=== PATIENT | female | born 1950 | race Caucasian/White ===

== ENCOUNTER 2019-07-16 19:28 | Emergency (ER) | payer MEDICARE, SELFPAY ==
[2019-07-16 19:44] VITALS: BP 197/115; PULSE 119; RESP 18; TEMP 36.4; O2SAT 93; BMI 22.1
--- NOTE | 2019-07-16 19:46 | W.ED.EXTPRO ---
HPI - Extremity Problem General: Chief complaint: Extremity Problem,Nontraumatic Stated complaint: right leg pain Time Seen by Provider: 07/16/19 19:44 Source: patient Mode of arrival: ambulatory Limitations: no limitations History of Present Illness: HPI Narrative: Patient comes in today for complaints of swelling and redness to the right lower extremity for the last 3 days. Patient reports some pain when walking on the extremity but otherwise is pain-free. Patient recently had a change in medication from a thiazide diuretic to furosemide. Patient reports increased swelling since this and does not know if it is related to the medication change or she might have a blood clot. Patient appears well. Patient denies any pain at rest. Patient appears in no acute distress. Patient has chronic shortness of breath due to COPD. Review of Systems General: Reports: 10 or more systems reviewed and unremarkable except in HPI and below Musc: Reports: extremity swelling [facility] ED PFSH: Medical History (Updated 07/16/19 @ 21:00 by ELISABETH Bowers) Asthma COPD (chronic obstructive pulmonary disease) Essential (primary) hypertension Social History Smoking and tobacco status: light tobacco smoker cigarettes Packs smoked per day: 1 Years cigarettes smoked: 50 Quit status (tobacco): considering quitting Smoking risk assessment/counseling performed?: Yes Alcohol intake: never Lives independently: Yes Household members: none Current occupational status: retired History of recent travel: No Current gender identity: Female Physical Exam Const: COMMON NORMALS: no apparent distress and oriented x3 GENERAL APPEARANCE: cooperative HENMT: COMMON NORMALS: normocephalic, TM's normal bilaterally and external nose normal HEAD & SCALP: normal to inspection and normocephalic NOSE: external nose normal TYMPANIC MEMBRANE: TM's normal bilaterally MOUTH: oral and palatal mucosa normal THROAT: posterior oropharynx normal Eye: GENERAL EYE: normal appearance of both eyes Neck/C-Spine: COMMON NORMALS: full ROM Lymph: LYMPHATIC: no lymphadenopathy noted Chest: COMMONS NORMALS: inspection of chest normal Resp: COMMON NORMALS: normal respiratory effort EFFORT & INSPECTION: Yes able to speak in complete sentences Cardio: COMMON NORMALS: regular rate and regular rhythm RATE: regular rate RHYTHM: regular rhythm GI: COMMON NORMALS: non-tender : COMMON NORMALS: Yes no CVA tenderness BLADDER/KIDNEY EXAM: Yes no CVA tenderness Back/Pelvis: COMMON NORMALS: no CVA tenderness and thoracic and lumbar spine normal to inspection Extremity: COMMON NORMALS: normal to inspection GENERAL: Yes edema (right lower leg, multiple varicose veins) Neuro: COMMON NORMALS: oriented x3 and moves all extremities Psych: COMMON NORMALS: mental status grossly normal and cooperative Skin: COMMON NORMALS: no rashes or lesions noted GENERAL SKIN EXAM: no rashes or lesions noted Course Vital Signs: Vital signs: Vital Signs Temperature 97.6 F 07/16/19 19:44 Pulse Rate 115 H 07/16/19 20:51 Respiratory Rate 20 H 07/16/19 20:51 Blood Pressure 204/106 07/16/19 20:51 Pulse Oximetry 92 07/16/19 20:51 MDM - Extremity (Nontraumatic) MDM Narrative: Medical decision making narrative: Patient comes in for evaluation of swelling and redness to the right lower leg. Patient is concerned for a blood clot. Patient appears well. Patient appears no acute distress. Exam of the leg notes some significant varicosities, increased edema to the lower extremity and calf tenderness on palpation. Pulses are intact. Normal range of motion of extremity is normal. Vital signs are normal except for some elevation in blood pressure. Patient denies chest pain or headache. Differential diagnosis includes cellulitis, DVT, inflamed varicosities. Laboratory values were normal or insignificant. Patient did have some mild elevation in blood sugar at 159. Venous Doppler ultrasound of the right lower extremity noted a popliteal DVT. Reviewed exam with patient recommended treatment with apixaban 10 mg twice a day for 7 days and then 5 mg twice a day. Reviewed recommendations with patient who agreed to plan with needed follow-up. Lab Data: Labs: Lab Results 07/16/19 07/16/19 07/16/19 Range/Units 20:17 20:17 20:17 WBC 8.1 (4.0-10.0) 10^3/ uL RBC 5.01 (4.1-5.3) 10^6/u L Hgb 15.2 (11.5-15.3) g/dL Hct 46.6 (37.0-47.0) % MCV 93.0 (81-99) fL MCH 30.3 (28.0-34.0) pg MCHC 32.6 (30.0-36.0) g/dL RDW 13.0 (12.1-15.1) % Plt Count 171 (130-400) 10^3/c mm MPV 10.1 (7.4-10.4) fL Neut % (Auto) 83.5 % Lymph % (Auto) 7.3 % Wake % (Auto) 7.7 % Eos % (Auto) 0.6 % Baso % (Auto) 0.5 % Neut # (Auto) 6.8 (1.8-7.7) 10^3/u L Lymph # (Auto) 0.6 L (0.8-4.8) 10^3/u L Wake # (Auto) 0.6 (0.2-0.9) 10^3/u L Eos # (Auto) 0.1 (0.0-0.8) 10^3/u L Baso # (Auto) 0.0 (0.0-0.1) 10^3/u L Nucleated RBC % (a uto) 0 % Nucleated RBCs # 0.0 /100WBC PT 13.00 (10.5-13.3) SECO NDS INR 0.95 (0.8-1.2) APTT 28.2 (23.9-36.7) SECO NDS Sodium 137 (136-145) mmol/L Potassium 4.1 (3.5-5.1) mmol/L Chloride 99 (98-107) mmol/L Carbon Dioxide 27 (22-29) mmol/L Anion Gap 15.1 (5-19) BUN 9 (8-23) mg/dL Creatinine 0.6 (0.5-0.9) mg/dL GFR Calculation 99.4 (90-130) mL/min Glucose 159 H (65-115) mg/dL Calculated Osmolal ity 283 L (285-295) mOsm/k g Calcium 10.0 (8.5-10.5) mg/dL Total Bilirubin 0.5 (0.15-1.2) mg/dL AST 27 (0-32) U/L ALT 32 (0-33) U/L Alkaline Phosphata se 85 (35-105) IU/L Total Protein 7.5 (6.6-8.7) g/dL Albumin 4.1 (3.5-5.2) g/dL Globulin 3.4 (1.3-4.6) g/dL Discharge Plan Discharge Patient Disposition: Home, Self-Care Clinical Impression: Deep vein thrombosis of lower extremity Qualifiers: Affected thrombotic vein of extremity: popliteal Chronicity: acute Laterality: right Qualified Code(s): I82.431 - Acute embolism and thrombosis of right popliteal vein Condition: Stable Prescriptions: New apixaban 5 mg (74 tabs) tablets,dose pack See Rx Instructions .ROUTE .COMPLEX Qty: 74 RF: 0 No Action diltiazem HCl 60 mg capsule,extended release 12 hr 60 mg PO DAILY RF: 0 diltiazem HCl 60 mg capsule,extended release 12 hr 120 mg PO DAILY RF: 0 aspirin [Adult Aspirin Regimen] 81 mg tablet,delayed release (DR/EC) 81 mg PO DAILY RF: 0 Breo Ellipta 200-25 mcg/dose blister with device 1 inh INHALATION DAILY RF: 0 albuterol sulfate [ProAir HFA] 90 mcg/actuation HFA aerosol inhaler 2 puff INHALATION Q6H PRNRF: 0 fluticasone propionate [Flonase Allergy Relief] 50 mcg/actuation spray,suspension 1 spray INTRANASAL Q12H 60 Days Qty: 18.2 RF: 3 Spiriva Respimat 1.25 mcg/actuation mist 2 puff INHALATION DAILY Qty: 4 RF: 3 prednisone 5 mg tablet 5 mg PO BID Qty: 60 RF: 0 Discharge Orders: Discharge Order (Routine); Ordered 07/16/19 Ordered By: Hector Howard Referrals: Thompson Zuluaga MD [Primary Care Provider] - Discharge Diet: Usual diet Discharge Activity: Increase activity as tolerated Patient Instructions: Deep Venous Thrombosis (ED) Activity Restrictions/Additional Instructions: Home and rest Activity as tolerated Return to ED for chest pain or difficulty breathing Take medication as directed Follow-up with primary care in one week for recheck You will need to be on medication for at least three months, continuation of the medication will be decided by your physician and yourself Coding Level of Care Code 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
--- NOTE | 2019-07-16 19:51 | USCV_ITS ---
Lisset Murphy Age: 69 Gender: F : 1950 Exam Date: 07/16/2019 20:24 Ordering Phys: Hector Howard Technologist: Anastacio Gonsalez [place] [facility] [place]ication: RT LEG PAIN AND SWELLING HISTORY: Lower extremity edema. PROCEDURES: Venous duplex imaging was performed in only the right lower extremity. The following venous structures were evaluated: common femoral vein, profunda vein, proximal portion of the greater saphenous vein, superficial femoral vein, and the popliteal vein. In addition, the posterior tibial and peroneal trunk were evaluated. FINDINGS: Evidence of subacute occlusive deep vein thrombosis in the right popliteal, peroneal and posterior tibial vein with abnormal flow dynamics. Partial contraction of the thrombus suggest subacute stage. There is subcutaneous right lower extremity edema noted. CONCLUSIONS Subacute right lower extremity DVT. Dr. Sabrina Mcgee DO (Electronically Signed) Final Date: 17 July 2019 11:38 S
[2019-07-16 20:10] VITALS: BP 197/106; PULSE 108; RESP 18; O2SAT 92
[2019-07-16 20:29] LABS: Basophils % 0.5 %; Eosinophils # 0.1 10^3/uL (0.0-0.8); Eosinophils % 0.6 %; Hematocrit 46.6 % (37.0-47.0); Hemoglobin 15.2 g/dL (11.5-15.3); Lymphocytes # 0.6 10^3/uL (0.8-4.8); Lymphocytes % 7.3 %; Mean Corpuscular HGB Conc 32.6 g/dL (30.0-36.0); Mean Corpuscular Hemoglobin 30.3 pg (28.0-34.0); Mean Platelet Volume 10.1 fL (7.4-10.4); Monocytes # 0.6 10^3/uL (0.2-0.9); Monocytes % 7.7 %; Neutrophils # 6.8 10^3/uL (1.8-7.7); Neutrophils % 83.5 %; Nucleated Red Blood Cells % 0 %; Platelet Count 171 10^3/cmm (130-400); Red Blood Count 5.01 10^6/uL (4.1-5.3); White Blood Count 8.1 10^3/uL (4.0-10.0)
[2019-07-16 20:41] LABS: INR 0.95 (0.8-1.2)
[2019-07-16 20:42] LABS: Partial Thromboplastin Time 28.2 SECONDS (23.9-36.7)
[2019-07-16 20:48] LABS: Alanine Aminotransferase 32 U/L (0-33); Albumin Level 4.1 g/dL (3.5-5.2); Alkaline Phosphatase 85 IU/L (35-105); Anion Gap 15.1 (5-19); Aspartate Amino Transferase 27 U/L (0-32); Blood Urea Nitrogen 9 mg/dL (8-23); Carbon Dioxide 27 mmol/L (22-29); Chloride 99 mmol/L (98-107); Creatinine Clr Calc Pharmacy 71.1191; Globulin 3.4 g/dL (1.3-4.6); Glomerular Filtration Rate 99.4 mL/min (90-130); Glucose 159 mg/dL (65-115); Osmolality Calculated 283 mOsm/kg (285-295); Potassium 4.1 mmol/L (3.5-5.1); Sodium 137 mmol/L (136-145); Total Bilirubin 0.5 mg/dL (0.15-1.2); Total Protein 7.5 g/dL (6.6-8.7)
[2019-07-16 20:51] VITALS: BP 204/106; PULSE 115; RESP 20; O2SAT 92
[2019-07-16] MEDS: apixaban 5 mg Tablet 10 MG PO (21:24)
[2019-07-16 21:25] VITALS: BP 173/117; PULSE 117; RESP 18; O2SAT 92
== END 2019-07-16 21:25 | disposition home or self-care (01) ==
PROVIDERS: Emergency Provider Nurse Practitioner Family; Family Provider Family Medicine; PCP Family Medicine
DX: I82.431 Acute embolism and thrombosis of right popliteal vein (principal); J44.9 Chronic obstructive pulmonary disease, unspecified; I10 Essential (primary) hypertension; F17.210 Nicotine dependence, cigarettes, uncomplicated; Z79.82 Long term (current) use of aspirin
CPT/HCPCS: 12345; 36415; 80053; 85025; 85610; 85730; 93971; 99282; 99283

== ENCOUNTER 2019-07-19 07:39 | Outpatient (CLI) | payer MEDICARE, SELFPAY ==
--- NOTE | 2019-07-19 07:44 | US_ITS ---
WS: [id number] RIGHT UPPER QUADRANT ULTRASOUND HISTORY: EPIGASTRIC PAIN COMPARISON: None available. Liver: 15.1 cm in length. Normal size and echogenicity with no intrahepatic dilatation. No mass. Gallbladder: Normally distended gallbladder with no stones or wall thickening. CBD: 0.3 cm Pancreas: Normal size and echogenicity. Right kidney: 11.0 cm in length. Normal echogenicity with no mass or hydronephrosis. Aorta and IVC: Unremarkable. No ascites. US/US gall bladder [id number] IMPRESSION: Normal RIGHT upper quadrant ultrasound.
== END 2019-07-19 07:40 | disposition home or self-care (01) ==
LOC: RAD 07:42
PROVIDERS: Family Provider Family Medicine; PCP Family Medicine; Visit Provider Family Medicine
DX: R10.13 Epigastric pain (principal)
CPT/HCPCS: 76705

== ENCOUNTER 2019-08-14 08:18 | Outpatient (CLI) | payer MEDICARE, SELFPAY ==
--- NOTE | 2019-08-14 08:30 | CT_ITS ---
WS: [id number] CT CHEST TECHNIQUE: Noncontrast CT of the chest with coronal and sagittal reformatted images. CLINICAL INFORMATION: pulmonary nodule COMPARISON: CTA chest January 25, 2019 DLP: 709.[address] scans at [facility] use at least one of these dose optimization techniques: automat ed exposure control; mA and/or kV adjustment per patient size (includes targeted exams where dose is matched to clinical indication); or iterative reconstruction. FINDINGS: Moderate chronic emphysematous changes. No acute pulmonary infiltrates. No focal pneumonia. No consol idation or pleural fluid. Bulla right upper lobe anteriorly measuring 1.9 x 1.2 CM. Pulmonary nodule right upper lobe posteriorly increased in size from previous today measuring 8.5 mm. Suggestion of a few calcifications in the nodule. Additional hazy groundglass opacities in the left upper lobe measuring 6 mm and 7 mm also slightly in creased in size from previous. Hazy groundglass infiltrate in right upper lobe anteriorly adjacent to the previously described bulla. This is similar in appearance to previous. New small groundglass nod ule in the right lower lobe posteriorly measuring 4 mm. Bibasilar atelectasis. Dense aortic calcification. Coronary calcification. No mediastinal or hilar lymphadenopathy. Calcifie d paratracheal lymph nodes. Small esophageal hiatal hernia. Adrenal glands are normal. CT/CT chest wo con [id number] IMPRESSION: 1. Moderate chronic emphysematous changes. Stable bulla right upper lobe anter iorly measuring 11.7 x 19 mm. Stable surrounding groundglass infiltrate about t he bulla. 2. Again seen are multiple pulmonary nodules the largest in the right upper lo be posteriorly measuring 8.4 mm has increased in size although this demonstrate s a few tiny calcifications. RECOMMEND 6 MONTH FOLLOW-UP. 3. Hazy groundglass opacities in the left upper lobe measuring 6 and 7 mm resp ectively have also increased in size slightly. 4. New groundglass nodule right lower lobe measuring 4 mm appears new from pre vious. 5. Additional stable subcentimeter pulmonary nodules. 6. Bibasilar atelectasis. 7. No mediastinal or hilar lymphadenopathy. 8. Advanced calcified atheromatous disease aortic arch with moderate luminal s tenosis appears unchanged 9. Coronary calcification.
== END 2019-08-14 08:19 | disposition home or self-care (01) ==
LOC: RADWPI 08:27
PROVIDERS: Family Provider Family Medicine; PCP Family Medicine; Visit Provider Internal Medicine Critical Care Medicine
DX: R91.1 Solitary pulmonary nodule (principal); J43.9 Emphysema, unspecified; J98.11 Atelectasis; I70.0 Atherosclerosis of aorta; I25.10 Atherosclerotic heart disease of native coronary artery without angina pectoris
CPT/HCPCS: 71250

== ENCOUNTER 2019-10-03 09:04 | Outpatient (CLI) | payer MEDICARE, SELFPAY ==
--- NOTE | 2019-10-03 09:42 | PFTS_ITS ---
Date of Study:10/03/19 Date of Dictation: MECHANICS: Forced vital capacity (FVC) is normal. Forced expiratory volume in one second (FEV1) is reduced. FEV1/FVC is reduced. FLOW VOLUME LOOP: Reduced flow at all lung volumes with significant scooping. LUNG VOLUMES: Total lung capacity (TLC) is normal. Residual volume (RV) is elevated. DIFFUSING CAPACITY FOR CARBON MONOXIDE: Severely diminished. INTERPRETATION: The pulmonary function tests are consistent with moderate obstruction. There is significant postbronchodilator response. Lung volumes are consistent with air trapping. Gas exchange (DLCO) is severely reduced. MTDD
== END 2019-10-03 09:05 | disposition home or self-care (01) ==
LOC: RT 09:05
PROVIDERS: PCP Family Medicine; Visit Provider Internal Medicine Critical Care Medicine
DX: J44.9 Chronic obstructive pulmonary disease, unspecified (principal)
CPT/HCPCS: 94060; 94726; 94729

== ENCOUNTER 2020-01-08 10:36 | Outpatient (CLI) | payer MEDICARE, SELFPAY ==
--- NOTE | 2020-01-08 11:00 | CT_ITS ---
WS: [id number] CT CHEST WITHOUT INTRAVENOUS CONTRAST HISTORY: Pulmonary nodule TECHNIQUE: Contiguous 5 mm axial imaging performed on the thorax. Coronal and sagittal reformats are submitted. All CT scans at [facility] use at least one of these dose optimization techniq ues: automated exposure control; mA and/or kV adjustment per patient size (includes targeted exams wh ere dose is matched to clinical indication); or iterative reconstruction. CONTRAST: None DLP: 662.66 mGycm COMPARISON: 08/14/2019 and 01/25/2019 Lungs and central airway: Severe emphysema. Continued increase in size and number of the pulmonary no dules throughout both lungs. The largest nodule in the posterior RIGHT upper lobe now measures 11 mm in short axis diameter as compared to 8 mm on the prior study. There are additional smaller nodules s cattered throughout both lungs. Some of these nodules are new and some have increased in size. Some o f these nodules are slightly spiculated with adjacent groundglass attenuation. Most concerning is 6 m m in the RIGHT lower lobe which is slightly spiculated. Bullous disease with adjacent groundglass att enuation and very mild thickening of the wall in the anterior RIGHT upper lobe has not significantly changed in size. Pleura: Normal. No pleural effusion. Heart and pericardium: Normal size heart. Moderate atherosclerosis mechoopda coronary arteries. Small am ount of pericardial thickening or fluid. Increased fat deposition in the intra-atrial septum. Mediastinum and marguerite: There are mediastinal and hilar lymph nodes. Size is difficult to determine wit hout IV contrast but they do not appear to be significantly enlarged. Vessels: Extensive atherosclerosis aorta with no aneurysm. Pulmonary artery size is large. Chest wall and lower neck: No soft tissue masses. Upper abdomen: Stable subcentimeter cyst LEFT lobe of the liver. Additional stable cyst in the RIGHT lobe. No adrenal mass. Osseous structures: New compression fractures at T6 and T7. T6 fracture by 40% and T7 fracture by 10% . No retropulsion. There is also mild anterior wedging of T9. CT/CT chest wo con [id number] IMPRESSION: 1. Slight but concerning progression in size and number of the pulmonary nodul es since 08/14/2019. The largest nodule RIGHT upper lobe has increased from 8 mm to 11 mm. There are additional new nodules which are very small. 2. No adenopathy identified. 3. Extensive atherosclerosis aorta. 4. Pulmonary hypertension. 5. Advanced emphysema. 6. Cystic cavity RIGHT upper lobe with mild wall thickening is stable.
== END 2020-01-08 10:37 | disposition home or self-care (01) ==
LOC: RADWPI 10:41
PROVIDERS: PCP Family Medicine; Visit Provider Internal Medicine Critical Care Medicine
DX: R91.1 Solitary pulmonary nodule (principal); R91.8 Other nonspecific abnormal finding of lung field; I70.0 Atherosclerosis of aorta; I27.20 Pulmonary hypertension, unspecified; J43.9 Emphysema, unspecified
CPT/HCPCS: 71250

== ENCOUNTER 2020-02-01 15:23 | Inpatient (IN) | payer MEDICARE, SELFPAY ==
[2020-02-01] VITALS (14 sets, daily range): BP systolic 96–155; BP diastolic 59–88; PULSE 84–101; RESP 16–18; TEMP 36.7–37; O2SAT 86–99; BMI 20.7
--- NOTE | 2020-02-01 15:43 | XR_ITS ---
WS: [id number] Exam: XR hip LT 2-3V wo/w pel* [id number] Date/Time of Exam: 02/01/2020 3:43 PM Reason For Exam: fall, pain There is subcapital fracture of the left hip with coxa vera deformity. Mild degenerative change of th e joint compartment. Osteopenia. XR/XR hip LT 2-3V wo/w pel* [id number] IMPRESSION: 1. Subcapital fracture left hip with coxa vera deformity.
--- NOTE | 2020-02-01 15:43 | XR_ITS ---
WS: [id number] Exam: XR chest 1V portable [id number] Date/Time of Exam: 02/01/2020 3:43 PM Reason For Exam: fall, hip fracture Comparison 01/25/2019. The lungs are hyperinflated and clear. No pleural effusions. Cardiomediastinal structures are unremar kable. Atherosclerosis of the thoracic aorta. Bony structures are intact. XR/XR chest 1V portable [id number] IMPRESSION: 1. Pulmonary hyperinflation. No acute process.
--- NOTE | 2020-02-01 15:43 | ECG_ITS ---
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1950 Requested By: Priti Cavazos Order Number: [id number] Bette MD: SRINIVAS VALENCIA Measurements Intervals Goodman Rate: 92 P: 46 NH: 167 QRS: 76 QRSD: 78 T: 78 QT: 348 QTc: 432 Interpretive Statements SINUS RHYTHM POSSIBLE LEFT ATRIAL ENLARGEMENT [-0.1mV P WAVE IN V1/V2] SEPTAL MYOCARDIAL INFARCTION , PROBABLY OLD [40+ ms Q WAVE IN V1/V2] Compared to ECG 01/25/2019 18:31:40 Myocardial infarct finding now present Sinus tachycardia no longer present Electronically Signed On 02-01-2020 18:20:05 CDT by SRINIVAS VALENCIA [id number]
--- NOTE | 2020-02-01 15:43 | XR_ITS ---
WS: [id number] Exam: XR femur LT min 2V* [id number] Date/Time of Exam: 02/01/2020 3:43 PM Reason For Exam: fall, pain Subcapital fracture of the left femur with coxa vera deformity. The remaining aspects of the femur ar e intact. XR/XR femur LT min 2V* [id number] IMPRESSION: 1. Subcapital fracture of the left femur. No other fractures are identified.
--- NOTE | 2020-02-01 15:44 | W.ED.FALL ---
HPI - Fall General: Chief Complaint: Extremity Injury, Lower Stated Complaint: FALL/ HIP PAIN Time Seen by Provider: 02/01/20 15:26 History of Present Illness: HPI Narrative: This is a very pleasant 69-year-old female who fell at home today. She said she was walking downstairs and thinks she missed the last couple of steps. She fell onto her left side and is having severe left hip pain. She denies any other pain. She did not hit her head. She did not have chest pain or syncope. She has never had any prior injuries to that leg. complaint: fall Onset (ago): minute(s) (30) Fall from: standing and down stairs (#) (2) Fall witnessed: no Place fall occurred: home Loss of consciousness: None Prolonged down time: no Symptoms prior to fall: none Context: tripped/slipped Location of injury: pelvis Location of injury - extremities: Left: thigh Severity scale (1-10): 7 Quality: sharp Associated symptoms-after fall: Reports difficulty walking; Denies abdominal pain, chest pain or neck pain Review of Systems General: Reports: 10 or more systems reviewed and unremarkable except in HPI and below Const: Denies: fever(s), chills, fatigue or malaise Eyes: Denies: change in vision ENMT: Denies: odynophagia Card: Denies: chest pain or swelling of feet/ankles Resp: Denies: dyspnea, productive cough or non-productive cough GI: Denies: abdominal pain, nausea or vomiting : Denies: flank pain or difficulty voiding Musc: Denies: neck pain or back pain Skin/Breast: Denies: rash Neuro: Reports: difficulty walking Bernard/Lymph: Denies: easy bruising or easy bleeding PFSH ED PFSH: Medical History Asthma Chronic obstructive pulmonary disease COPD (chronic obstructive pulmonary disease) Essential (primary) hypertension Surgical History H/O tubal ligation Family History Father CAD (coronary artery disease) Mother Cancer Social History Smoking and tobacco status: current every day smoker cigarettes Packs smoked per day: 1 Years cigarettes smoked: 50 [ Other cigarette details: Cutting down to 6 a day ] Quit status (tobacco): considering quitting Smoking risk assessment/counseling performed?: Yes Alcohol intake: never Lives independently: Yes Household members: none Marital status: Current occupational status: retired History of recent travel: No Current gender identity: Female Physical Exam Const: COMMON NORMALS: no acute distress, patient oriented x3, no limitations and alert GENERAL APPEARANCE: cooperative and comfortable HENMT: HEAD & SCALP: normal to inspection FACE & SINUS: normal facial exam Eye: GENERAL EYE: appearance normal, both eyes and all related structures Neck/C-Spine: COMMON NORMALS: supple, no meningeal signs and no JVD Chest: COMMONS NORMALS: normal inspection of the chest Resp: COMMON NORMALS: normal respiratory effort, No use of accessory muscles and clear to auscultation bilaterally AUSCULTATION: clear to auscultation bilaterally Cardio: COMMON NORMALS: no JVD, regular rate, regular rhythm and No murmurs present (Cardio) RATE: regular rate RHYTHM: regular rhythm GI: COMMON NORMALS: Normal to inspection, nondistended, normoactive bowel sounds present, Soft to palpation and non-tender INSPECTION: Yes normal to inspection AUSCULTATION: Yes normoactive bowel sounds PALPATION: Yes Soft to palpation Back/Pelvis: COMMON NORMALS: thoracic and lumbar spine normal to inspection Extremity: NARRATIVE EXTREMITY EXAM: Pain and limited motion of the left hip. External rotation and shortening. Normal pulses and sensation. Neuro: COMMON NORMALS: patient oriented x3, moves all extremities, no focal motor deficits and no sensory deficits noted SENSORIUM/ORIENTATION: Yes alert MENINGEAL SIGNS: Yes no meningeal signs Psych: COMMON NORMALS: mental status grossly normal, cooperative and normal affect Skin: COMMON NORMALS: no rashes or lesions noted and turgor normal GENERAL SKIN EXAM: no rashes or lesions noted and turgor normal Procedures Nerve Block Nerve Block 1: Time out performed: Yes Local Anesthetic: bupivacaine 0.5% Amount of anesthesia used (mL): 15 Side: left Nerve Blocks: femoral Procedure Successful: Yes Patient Tolerated Procedure: well Complications: none Course ED course: Patient with severe pain in her left hip due to her subcapital fracture. We discussed doing a femoral nerve block and she was eager to go ahead and have that done. She did get some good relief from that. She also had morphine. Dr. Good will plan for surgery tomorrow. Dr. James will admit. She does have a history of DVT in the right leg and has been on aspirin only for that. She was on Eliquis but was taken off it after 6 months. Vital Signs: Vital signs: Vital Signs Temperature 98.6 F 02/01/20 15:35 Pulse Rate 101 H 02/01/20 15:35 Respiratory Rate 18 02/01/20 16:02 Blood Pressure 155/88 02/01/20 15:35 Pulse Oximetry 99 02/01/20 16:02 - Fall Lab Data: Labs: Lab Results 02/01/20 02/01/20 02/01/20 Range/Units 16:05 16:05 16:32 WBC 12.9 H (4.0-10.0) 10^3/ uL RBC 5.03 (4.1-5.3) 10^6/u L Hgb 15.6 H (11.5-15.3) g/dL Hct 46.8 (37.0-47.0) % MCV 93.0 (81-99) fL MCH 31.0 (28.0-34.0) pg MCHC 33.3 (30.0-36.0) g/dL RDW 13.2 (12.1-15.1) % Plt Count 173 (130-400) 10^3/c mm MPV 10.9 H (7.4-10.4) fL Neut % (Auto) 82.9 % Lymph % (Auto) 8.9 % Wilkes % (Auto) 6.4 % Eos % (Auto) 0.7 % Baso % (Auto) 0.5 % Neut # (Auto) 10.70 H (1.8-7.7) 10^3/u L Lymph # (Auto) 1.2 (0.8-4.8) 10^3/u L Wilkes # (Auto) 0.8 (0.2-0.9) 10^3/u L Eos # (Auto) 0.1 (0.0-0.8) 10^3/u L Baso # (Auto) 0.1 (0.0-0.1) 10^3/u L Nucleated RBC % (a uto) 0 % Nucleated RBCs # 0.0 /100WBC Sodium Cancelled 135 L Potassium Cancelled 3.6 Chloride Cancelled 101 Carbon Dioxide Cancelled 25 Anion Gap Cancelled 12.6 BUN Cancelled 20 Creatinine Cancelled 0.7 GFR Calculation Cancelled 83.2 L Glucose Cancelled 123 H Calculated Osmolal ity Cancelled 284 L Calcium Cancelled 8.8 Total Bilirubin Cancelled 0.4 AST Cancelled 17 ALT Cancelled 17 Alkaline Phosphata se Cancelled 87 Total Protein Cancelled 6.5 L Albumin Cancelled 3.8 Globulin Cancelled 2.7 Discharge Plan Discharge Prescriptions: No Action diltiazem HCl 60 mg capsule,extended release 12 hr 120 mg PO DAILY RF: 0 albuterol sulfate [ProAir HFA] 90 mcg/actuation HFA aerosol inhaler 2 puff INHALATION Q6H PRN (Reason: Shortness Of Breath) RF: 0 prednisone 5 mg tablet 5 mg PO DAILY RF: 0 aspirin [Adult Aspirin Regimen] 81 mg tablet,delayed release (DR/EC) 162 mg PO DAILY RF: 0 fluticasone propionate [Flonase Allergy Relief] 50 mcg/actuation spray,suspension 1 spray INTRANASAL Q12H 60 Days Qty: 18.2 RF: 3 Trelegy Ellipta 100-62.5-25 mcg blister with device 1 inh INHALATION DAILY 90 Days Qty: 180 RF: 3 citalopram 10 mg tablet 10 mg PO DAILY RF: 0 furosemide 20 mg tablet 20 mg PO DAILY RF: 0 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
[2020-02-01] MEDS: ondansetron 2 mg/ML SDV 2 mL 4 MG IVP (16:02)
[2020-02-01] MEDS: morphine 4 mg/mL SDV 1 mL IVP (16:02)
[2020-02-01 16:14] LABS: Basophils # 0.1 10^3/uL (0.0-0.1); Basophils % 0.5 %; Eosinophils # 0.1 10^3/uL (0.0-0.8); Eosinophils % 0.7 %; Hematocrit 46.8 % (37.0-47.0); Hemoglobin 15.6 g/dL (11.5-15.3); Lymphocytes # 1.2 10^3/uL (0.8-4.8); Lymphocytes % 8.9 %; Mean Corpuscular HGB Conc 33.3 g/dL (30.0-36.0); Mean Platelet Volume 10.9 fL (7.4-10.4); Monocytes # 0.8 10^3/uL (0.2-0.9); Monocytes % 6.4 %; Neutrophils % 82.9 %; Nucleated Red Blood Cells % 0 %; Platelet Count 173 10^3/cmm (130-400); Red Blood Count 5.03 10^6/uL (4.1-5.3); Red Cell Distribution Width 13.2 % (12.1-15.1); White Blood Count 12.9 10^3/uL (4.0-10.0)
[2020-02-01 17:01] LABS: Alanine Aminotransferase 17 U/L (0-33); Albumin Level 3.8 g/dL (3.5-5.2); Alkaline Phosphatase 87 IU/L (35-105); Anion Gap 12.6 (5-19); Aspartate Amino Transferase 17 U/L (0-32); Blood Urea Nitrogen 20 mg/dL (8-23); Calcium 8.8 mg/dL (8.5-10.5); Carbon Dioxide 25 mmol/L (22-29); Chloride 101 mmol/L (98-107); Globulin 2.7 g/dL (1.3-4.6); Glomerular Filtration Rate 83.2 mL/min (90-130); Glucose 123 mg/dL (65-115); Osmolality Calculated 284 mOsm/kg (285-295); Potassium 3.6 mmol/L (3.5-5.1); Sodium 135 mmol/L (136-145); Total Bilirubin 0.4 mg/dL (0.15-1.2); Total Protein 6.5 g/dL (6.6-8.7)
--- NOTE | 2020-02-01 17:46 | P.HP_ITS ---
Providers/Chief Complaint Primary Care Provider: Thompson Zuluaga MD Chief Complaint: FALL/ HIP PAIN History of Present Illness Lisset Murphy is a 69 year old female with past medical history of class D COPD, asthma, paroxysmal A. fib, recent history of right leg DVT on aspirin 81 mg twice daily came in after sustaining a mechanical fall while she was climbing down the stairs. After that she started having pain in her left leg and she found her left leg to be rotated outside. Blood work in the ER showed a white count of 12.9, hemoglobin of 15.6, platelet count of 173, sodium of 135, chloride of 101, creatinine of 0.7, hip x-ray sh owing subcapital fracture of left hip. She denies any symptoms of fever, nausea, vomiting, headache, dizziness, constipation, dysuria, known contact with COVID-19 infected person. Review of Systems General: Reports: 10 or more systems reviewed and unremarkable except in HPI and below Const: Denies: fever(s), chills, body aches, change in appetite, change in weight, malaise, night sweats, diaphoresis, change in sleep pattern, daytime sleepiness or snoring Eyes: Denies: change in vision, blurry vision, photophobia, eye discomfort or eye discharge ENMT: Denies: throat pain, enlarged tonsils, hoarseness, mouth pain, oral sores, dry mouth, tinnitus, nasal congestion or post nasal drip Card: Denies: chest pain, palpitations, irregular heart rhythm, edema, swelling of feet/ankles, lightheadedness, syncope, pre-syncope, dyspnea on exertion, orthopnea, leg pain with exertion or acrocyanosis Resp: Denies: dyspnea, productive cough, non-productive cough, wheezing, stridor, pain on inspiration, change in phlegm color, hemoptysis or chest congestion GI: Denies: abdominal pain, nausea, vomiting, hematemesis, coffee ground emesis, dysphagia, heartburn, diarrhea, constipation, bloating, GI cramping, change in bowel habits, pain on defecation, hematochezia or melena : Denies: flank pain, dysuria, urinary frequency, urinary urgency, urinary hesitancy, nocturia or hematuria Musc: Denies: neck pain, back pain, extremity pain, joint pain, joint swellin g, joint redness, joint stiffness or limited range of motion Neuro: Denies: headache(s), numbness in extremities, weakness in extremities, sensory changes, lack of coordination, difficulty walking, frequent falls, dizziness, vertigo, confusion, Slurred speech present, difficulty communicating thoughts or seizure-like activity Psych: Denies: anxiety, depression, mood swings, panic attacks, hopelessness or irritability Endo: Denies: polyuria, polydipsia, tired all the time, cold intolerance, excessive sweating, flushing or heat intolerance Bernard/Lymph: Denies: easy bruising or easy bleeding All/Imm: Denies: tongue swelling, facial swelling or acute wheezing Medications/Allergies Home Medications Medication Instructions Recorded Confirmed Last Taken Type albuterol sulfate 90 mcg/actuation 2 puff INHALATION Q6H PRN 06/20/19 02/01/20 01/31/20 History aerosol inhaler diltiazem HCl 60 mg 120 mg PO DAILY cap 06/20/19 02/01/20 02/01/20 History capsule,extended release 12 hr aspirin 81 mg tablet,delayed 162 mg PO DAILY 01/22/20 02/01/20 02/01/20 History release fluticasone fur. 100 mcg-umeclid 1 inh INHALATION DAILY 90 Days 01/22/20 02/01/20 02/01/20 Rx 62.5 mcg-vilant 25 mcg #180 each inhalat.powder fluticasone propionate 50 1 spray INTRANASAL Q12H 60 Days 01/22/20 02/01/20 01/31/20 Rx mcg/actuation nasal #18.2 ml spray,suspension prednisone 5 mg tablet 5 mg PO DAILY tab 01/22/20 02/01/20 01/31/20 History citalopram 10 mg PO DAILY 02/01/20 02/01/20 01/31/20 History furosemide 20 mg PO DAILY 02/01/20 02/01/20 01/31/20 History Allergies Allergy/AdvReac Type Severity Reaction Status Date / Time No Known Allergies Allergy Verified 01/22/20 09:59 PFSH Acute PFSH: Medical History (Updated 02/01/20 @ 17:[address] MD) Allergic rhinitis Asthma Chronic obstructive pulmonary disease COPD (chronic obstructive pulmonary disease) DVT (deep venous thrombosis) Essential (primary) hypertension Paroxysmal A-fib Surgical History H/O tubal ligation Family History Father CAD (coronary artery disease) Mother Cancer Social History Smoking and tobacco status: current every day smoker cigarettes Packs smoked per day: 1 Years cigarettes smoked: 50 [ Other cigarette details: Cutting down to 6 a day ] Quit status (tobacco): considering quitting Smoking risk assessment/counseling performed?: Yes Alcohol intake: never Lives independently: Yes Household members: none Marital status: Current occupational status: retired History of recent travel: No Current gender identity: Female Vitals/I&O/Wt Last Vital Signs Temp 98.6 F 02/01/20 15:35 Pulse 101 H 02/01/20 15:35 Resp 18 02/01/20 16:02 BP 155/88 02/01/20 15:35 Pulse Ox 99 02/01/20 16:02 Weight last 48 hrs Weight 63.503 kg Physical Exam Narrative: EXAM NARRATIVE: General: In acute distress because of pain in left hip, AO x3 HEENT: PERRLA, pupils bilaterally equal and reactive Chest: Normal vesicular breath sounds, no added sounds, equal good air entry bilaterally CVS: S1-S2 regular, ejection systolic murmur at aortic area, no tachycardia, no gallops, no rubs Abdomen: Soft, nontender, no organomegaly, bowel sounds present Neuro: No focal deficits, no facial deformity, AO x3, power 5/5 in all limbs Data : 02/01/20 16:05 02/01/20 16:32 A&P Assessment and plan (1) Subcapital fracture of left femur: Status: Acute (2) Essential (primary) hypertension: Status: Acute (3) COPD (chronic obstructive pulmonary disease): Status: Acute (4) Paroxysmal A-fib: Status: Acute Additional A&P Information Subcapital fracture of femur of left leg: Dr. Good from orthopedics have been consulted from the ER. Most likely OR tomorrow. N.p.o. after midnight. Physical therapy, perioperative antibiotics, anticoagulation as per Dr. Good. Wood 5 every 6 hours as needed for pain along with morphine 2 mg every 6 hours. We will monitor hemoglobin postoperatively. COPD: Follows up with Dr. Sullivan. Gold class D: No signs of exacerbation at present. Oxygen supplementation keeping saturation over 90%. Budesonide twice daily, DuoNebs every 6 hours. Continue home dose of prednisone 5 mg daily. Paroxysmal A. fib: Rate controlled at present. Continue home dose of Cardizem. Cardiac monitoring. Echocardiogram as patient also has a heart murmur. Hypertension: Goal blood pressure less than 140/90 mmHg. We will continue to monitor. History of DVT on aspirin 81 mg twice daily at present. Will do lower limb Dopplers. Continue other chronic medications. Will change medications as per the clinical picture. Cardiac diet at present, n.p.o. after midnight. Foot pumps for DVT prophylaxis, hold off on any pharmacological prophylaxis as patient might go to the OR tomorrow. Full code. Discharge planning: Discussed in detail with patient regarding possible need for discharge to SNF for further rehabitation. She states she has a sister who will be around 24 7 and has a son and [id number] who lives nearby. She would prefer to go home with possible home health on discharge. PT/OT evaluation postoperatively. Attestations Medical Necessity Statement*: Patient would need to be admitted for management of subcapital fracture of left femur. Anticipate admission for more than 2 midnights. Time Spent in Patient Care: Greater than 35 minutes (>than 50% of time spent in counselling and/or direct pt care on unit) . Coding Level of Care Code Acute Technical Sales Support Specialist for Nan Chaudhary Diagnoses Subcapital fracture of left femur S72.012A Essential (primary) hypertension I10 COPD (chronic obstructive pulmonary disease) J44.9 Paroxysmal A-fib I48.0
[2020-02-01 20:16] LABS: Thyroid Stimulating Hormone 3.89 uIU/mL (0.27-4.20)
[2020-02-01 20:17] LABS: Iron 122 ug/dL (37-145); NT Pro B Type Natriuretic Pept 652 pg/mL (0-125); Percent Saturation 44.6 % (20-50); Total Iron Binding Capacity 273 mcg/dl; Unsaturated Iron Binding 151 ug/dL (112-347)
[2020-02-01] MEDS: famotidine 20 mg/2 mL INJ IVP (20:22)
[2020-02-01] MEDS: budesonide 0.5 mg/2 mL Neb INHALATION (20:23)
[2020-02-01] MEDS: ipratropium-albuterol 3 mL Neb INHALATION (20:23)
--- NOTE | 2020-02-01 20:31 | PC.NURSE ---
Patient was transferred from the ER via stretcher. She was transferred with the assistance of the medication reconciliation technician and two nurses, tolerated well. Patient has stated that she has felt stinging pains in her hip.
--- NOTE | 2020-02-01 21:34 | PC.NURSE ---
Patient has stated that she her hands and feet are always cold.
[2020-02-01] MEDS: HYDROcodone-acetaminophen 5-325 mg Tablet 1 TAB PO (21:44)
[2020-02-01] MEDS: morphine 4 mg/mL SDV 1 mL 2 MG IVP (22:20)
[2020-02-01] MEDS: acetaminophen 325 mg Tablet 650 MG PO (23:39)
[2020-02-02] VITALS (79 sets, daily range): BP systolic 110–175; BP diastolic 60–110; PULSE 73–106; RESP 13–23; TEMP 36.4–37.2; O2SAT 84–99; BMI 22.4
[2020-02-02] MEDS: ipratropium-albuterol 3 mL Neb INHALATION ×5 (02:57→20:35)
[2020-02-02] MEDS: morphine 4 mg/mL SDV 1 mL 2 MG IVP ×2 (03:04→07:15)
--- NOTE | 2020-02-02 03:41 | XRR_ITS ---
PROCEDURE INFORMATION: Exam: XR Chest, 1 View Exam date and time: 02/02/2020 4:52 AM Age: 69 years old Clinical indication: Shortness of breath; Additional info: Worsening hypoxia TECHNIQUE: Imaging protocol: XR of the chest Views: 1 view. COMPARISON: CR XR chest 1V portable [id number] 02/01/2020 3:42 PM FINDINGS: Lungs: COPD changes are present. Few infiltrates are seen in both lower lobes. No consolidation. Pleural space: Unremarkable. No pleural effusion. No pneumothorax. Heart/Mediastinum: Unremarkable. No cardiomegaly. Bones/joints: Unremarkable. XR/XR chest 1V portable [id number] IMPRESSION: Bibasilar infiltrates superimposed on COPD changes. A short-term follow-up is suggested to see clearance. COVID-19 testing is suggested.
[2020-02-02 04:22] LABS: ABG PH Result 7.37 (7.35-7.45); Alveolar-Arterial Oxygen Gradi 4.9 mmHg (5-10); Arterial Blood Gas Hematocrit 44.8 % (37-47); Base Excess ABG 0.1 mmol/L (-2.0-2.0); Blood Gas Allen Test Pos; Blood Gas Operator Identificat HARKR; Blood Gas Sample Site Radial, right; Blood Gas Sample Type Arterial; Carboxyhemoglobin 2.8 %THgb (0.4-20.1); HCO3 ABG 25.8 mmol/L (22-26); HGB O2 Sat 87.9 % (95-100); Ionized Calcium Level - ABG 1.2 mmol/L (1.1-1.4); Methemoglobin 0.8 % (0.4-1.5); Oxygen Device OXY MASK; Oxygen Saturation ABG 91.1; PO2 ABG 58.3 mmHg (80.0-100.0); Potassium Level - ABG 4.4 mmol/L (3.5-5.0); Total Hemoglobin 14.6 g/dL (12-16)
--- NOTE | 2020-02-02 04:24 | PC.NURSE ---
Patient sounds slightly diminished from what she sounded earlier, still clear.
--- NOTE | 2020-02-02 04:26 | PC.NURSE ---
Patient's o2 was increased from 10L to 12L oxymask by RT. Patient's SpO2 is now 93%, HR 84. Patients color is slightly improved from dusky. Patients cap refill was above 3 seconds, now it is below 3 seconds.
--- NOTE | 2020-02-02 04:27 | CTR_ITS ---
PROCEDURE INFORMATION: Exam: CT Angiography Chest With Contrast Exam date and time: 02/02/2020 5:29 AM Age: 69 years old Clinical indication: Shortness of breath; Additional info: Worsening hypoxia, respiratory distress. TECHNIQUE: Imaging protocol: Computed tomographic angiography of the chest with intravenous contrast. 3D rendering (Not supervised by radiologist): MIP and/or 3D reconstructed images were created by the technologist. Radiation optimization: All CT scans at this facility use at least one of these dose optimization techniques: automated exposure control; mA and/or kV adjustment per patient size (includes targeted exams where dose is matched to clinical indication); or iterative reconstruction. Contrast material: OMNI 350; Contrast volume: 95 ml; Contrast route: INTRAVENOUS (IV); COMPARISON: CTA Chest-Pulmonary Emb [id number] 01/25/2019 8:16 PM RADIATION DOSE METRICS: Total DLP (mGy-cm): 611.87 FINDINGS: Pulmonary arteries: Normal. No pulmonary emboli. Aorta: Diffuse calcified plaque disease is seen with irregular narrowing in the aortic arch. No aortic aneurysm. No aortic dissection. Lungs: COPD changes are present with new interstitial prominence in the lower lungs. A new nodule is seen in the periphery of the right upper lobe posteriorly measuring 1.2 x 1 cm. No consolidation. No masses. Pleural space: Minimal bilateral pleural thickening is seen. No pneumothorax. No pleural effusion. Heart: Unremarkable. No cardiomegaly. No pericardial effusion. Lymph nodes: Small mediastinal lymph nodes are seen containing calcification. No enlarged lymph nodes. Bones/joints: Unremarkable. No acute fracture. Soft tissues: Unremarkable. CT/CT angio chest PE protcl [id number] IMPRESSION: 1. The examination is negative for pulmonary embolism. Negative for aortic aneurysm or dissection. Thick calcified plaque disease is seen in the aortic arch with irregular narrowing. 2. A new lung nodule is seen in the right upper lobe posteriorly for which follow-up is suggested. 3. COPD changes are seen with new interstitial prominence in the lung bases and minimal pleural thickening. For both low risk and high risk patients, consider CT Chest at 3 months, PET/CT, or biopsy. (Reference: Jaison) References: Jaison Reddy, et al. Guidelines for Management of Incidental Pulmonary Nodules Detected on CT Images: From the Fleischner Society 2017. Radiology. 2017;284(1):228-243. Radiation Dose CTDIVOL = (mGy): DLP = 611.87 (mGy-cm)
--- NOTE | 2020-02-02 04:40 | PC.NURSE ---
When the patient speaks, her SpO2 will rise to 95%, after she quits speaking it will slowly drop down to 93%. Will continue to monitor.
--- NOTE | 2020-02-02 05:21 | PC.NURSE ---
Patient was weighed with 1 extra blanket on bed.
--- NOTE | 2020-02-02 05:23 | PC.NURSE ---
Patient will fall asleep with slight snoring and her SpO2 will drop from 93% to 90%. Patient will then wake back up and her SpO2 will increase to 93/94%.
[2020-02-02 05:58] LABS: Basophils # 0.1 10^3/uL (0.0-0.1); Basophils % 0.7 %; Eosinophils # 0.1 10^3/uL (0.0-0.8); Eosinophils % 0.7 %; Hematocrit 44.7 % (37.0-47.0); Hemoglobin 14.4 g/dL (11.5-15.3); Lymphocytes # 0.6 10^3/uL (0.8-4.8); Lymphocytes % 5.9 %; Mean Corpuscular HGB Conc 32.2 g/dL (30.0-36.0); Mean Corpuscular Hemoglobin 30.4 pg (28.0-34.0); Mean Corpuscular Volume 94.5 fL (81-99); Mean Platelet Volume 10.8 fL (7.4-10.4); Monocytes # 0.8 10^3/uL (0.2-0.9); Monocytes % 7.8 %; Neutrophils # 8.85 10^3/uL (1.8-7.7); Neutrophils % 84.6 %; Nucleated Red Blood Cells % 0 %; Platelet Count 138 10^3/cmm (130-400); Red Blood Count 4.73 10^6/uL (4.1-5.3); Red Cell Distribution Width 13.2 % (12.1-15.1); White Blood Count 10.5 10^3/uL (4.0-10.0)
[2020-02-02] MEDS: iohexol 350 mg/mL 100 mL Btl IV (06:11)
[2020-02-02 06:24] LABS: Alanine Aminotransferase 17 U/L (0-33); Alkaline Phosphatase 92 IU/L (35-105); Anion Gap 11.2 (5-19); Aspartate Amino Transferase 20 U/L (0-32); Blood Urea Nitrogen 17 mg/dL (8-23); Calcium 9.1 mg/dL (8.5-10.5); Carbon Dioxide 28 mmol/L (22-29); Chloride 98 mmol/L (98-107); Globulin 2.8 g/dL (1.3-4.6); Glomerular Filtration Rate 99.4 mL/min (90-130); Glucose 128 mg/dL (65-115); Magnesium 2.1 mg/dL (1.7-2.3); Osmolality Calculated 279 mOsm/kg (285-295); Phosphorus 4.8 mg/dL (2.5-4.5); Potassium 4.2 mmol/L (3.5-5.1); Sodium 133 mmol/L (136-145); Total Bilirubin 0.6 mg/dL (0.15-1.2); Total Protein 6.8 g/dL (6.6-8.7)
[2020-02-02 06:41] LABS: Estmated Average Glucose 111; Hemoglobin A1C 5.5 % (4.0-6.0)
--- NOTE | 2020-02-02 07:02 | NUR.SHIFT ---
Patient continues to have problems with pain control. As stated with earlier notes, patient is on continuous pulse ox, on 12L oxymask. Unless oxygen is controlled, patient is unlikely a candidate for surgery at this time.
[2020-02-02] MEDS: HYDROcodone-acetaminophen 5-325 mg Tablet 1 TAB PO ×2 (07:38→15:28)
--- NOTE | 2020-02-02 07:44 | PC.NURSE ---
patient O2 sat was 80%, on 10l oxymask. placed patient on none-rebreather mask at 12 liters. Patient's sats improved to 93%.
[2020-02-02] MEDS: budesonide 0.5 mg/2 mL Neb INHALATION ×2 (07:59→20:35)
[2020-02-02] MEDS: famotidine 20 mg/2 mL INJ IVP ×2 (08:05→20:45)
[2020-02-02] MEDS: fluticasone nasal spray 16gm Btl 1 SPRAY INTRANASAL ×2 (08:10→18:40)
--- NOTE | 2020-02-02 08:58 | ANES.PREANE2 ---
Pre-Anesthetic Assessment Pre-Anesthetic Assessment: Height/Weight: Height 1.75 m Weight 68.901 kg Temp Pulse Resp BP Pulse Ox 97.8 F 87 20 H 145/76 92 02/02/20 08:00 02/02/20 08:00 02/02/20 08:00 02/02/20 08:00 02/02/20 08:00 Preop Diagnosis: Left femoral neck fracture Proposed Procedure: Operation Date: 02/02/20 09:00 Proposed Procedures p Hemiarthroplasty Hip(Left) - Vladislav Good MD Familial anesthetic complications: none Last intake: Intake Last Liquid Date 02/01/20 Last Liquid Time 23:55 Last Solid Date 02/01/20 Last Solid Time 17:00 Social: Social History: Tobacco Exam: Pre-Anes Outpt Exam: alert, oriented x 3, clear to auscultation bilaterally and regular rate & rhythm Airway: MP: 3 Dentition: False Pulmonary: Pulmonary: COPD (Class D) Comments: Patient's PFTs show moderate obstruction but severely decreased DLCO. She responds moderately to bronchodilators on PFTs. Consistent w/ a DLCO of 36%, patient's paO2 is 58 mmHg on 12 L/min of O2. She was not on O2 at home,however and etiology for increased O2 requirements is unknown, but atelectasis is highest suspicion. CT was negative for PE and she not fluid overloaded, no cephalization on CXR, no elevation of BNP. No fever, or covid contacts, no other symptoms of covid. She is not SOB or in any respiratory distress. There is not much we can do to optimize her further before surgery. Will give hydrocortisone 100 mg IV for stress dose steroids. She will most likely require ICU bed post operatively. CV/HEM: CV/HEM: Afib (on diltiazem), DVT (off eliquis for 6 months no) and [place] (on EKG) Anesthetic Plan: ASA status: 4 Anesthesia: Regional (specify below) Other: Will attempt spinal to avoid intubation, as this patient will likely be difficult to extubate Risk of > 500 ml blood loss (7ml/kg in children): No Meds/Allergies Current Medications: Current Medications Generic Name Dose Route Start Last Admin Trade Name Freq PRN Reason Stop Dose Admin Acetaminophen 650 mg 02/01/20 19:41 10/30/20 23:39 Tylenol PO 650 mg Q6H PRN Administration Mild/Mod Pain Or Temp >/= 101 Hydrocodone Bitart /Acetaminophen 1 tab 02/01/20 19:41 02/02/20 07:38 Mckee 5-325 Mg PO 1 tab Q4H PRN Administration MODERATE TO SEVER E PAIN Albuterol/Ipratrop ium 3 ml 02/02/20 08:00 02/02/20 07:58 Duoneb INHALATION 3 ml Q4H.RESPIRATORY S CH Administration Budesonide 0.5 mg 02/01/20 20:00 02/02/20 07:59 Pulmicort INHALATION 0.5 mg BID.RESPIRATORY S CH Administration Famotidine 20 mg 02/01/20 20:00 02/02/20 08:05 Pepcid Inj IVP 20 mg Q12H GÓMEZ Administration Fluticasone Propio cb 1 spray 02/01/20 19:41 02/02/20 08:10 Flonase INTRANASAL 1 spray Q12H GÓMEZ Administration Methylprednisolone Sodium Succinate 60 mg 02/02/20 07:30 02/02/20 08:04 Solu-Medrol IVP 60 mg Q6H GÓEMZ Administration PFSH Anesthesia PFSH: Medical History (Updated 02/02/20 @ 09:24 by Vladislav Good MD) Allergic rhinitis Asthma Chronic obstructive pulmonary disease COPD (chronic obstructive pulmonary disease) DVT (deep venous thrombosis) Essential (primary) hypertension Paroxysmal A-fib Surgical History H/O tubal ligation Family History Father CAD (coronary artery disease) Mother Cancer Social History Smoking and tobacco status: current every day smoker cigarettes Packs smoked per day: 1 Years cigarettes smoked: 50 [ Other cigarette details: Cutting down to 6 a day ] Quit status (tobacco): considering quitting Smoking risk assessment/counseling performed?: Yes Alcohol intake: never Lives independently: Yes Household members: none Marital status: Current occupational status: retired History of recent travel: No Current gender identity: Female Data Anesthesia CBC & Chem 7: 02/02/20 05:34 02/02/20 05:34 Other Labs: Laboratory Results - last 48 hr 02/01/20 02/01/20 02/01/20 16:05 16:05 16:32 WBC 12.9 H RBC 5.03 Hgb 15.6 H Hct 46.8 MCV 93.0 MCH 31.0 MCHC 33.3 RDW 13.2 Plt Count 173 MPV 10.9 H Neut % (Auto) 82.9 Lymph % (Auto) 8.9 [place] % (Auto) 6.4 Eos % (Auto) 0.7 Baso % (Auto) 0.5 Neut # (Auto) 10.70 H Lymph # (Auto) 1.2 [place] # (Auto) 0.8 Eos # (Auto) 0.1 Baso # (Auto) 0.1 Nucleated RBC % (auto) 0 Nucleated RBCs # 0.0 Specimen Type Sample Site ABG pH ABG pCO2 ABG pO2 ABG HCO3 ABG O2 Saturation ABG Base Excess Duncan Test A-a O2 Gradient Hematocrit Hgb O2 Saturation Carboxyhemoglobin Methemoglobin Total Hemoglobin Ionized Calcium O2 Delivery Device O2 Liters/Min Cash Applications Coordinator ID Sodium Cancelled Potassium Cancelled Chloride Cancelled Carbon Dioxide Cancelled Anion Gap Cancelled BUN Cancelled Creatinine Cancelled GFR Calculation Cancelled Glucose Cancelled Estimat Average Glucose Hemoglobin A1c Calculated Osmolality Cancelled Calcium Cancelled Phosphorus Magnesium Iron TIBC % Saturation Unsat Iron Binding Total Bilirubin Cancelled AST Cancelled ALT Cancelled Alkaline Phosphatase Cancelled NT-Pro-B Natriuret Pep Total Protein Cancelled Albumin Cancelled Globulin Cancelled Triglycerides Cholesterol LDL Cholesterol, Calc Total VLDL Cholesterol HDL Cholesterol Cholesterol/HDL Ratio TSH Blood Type A Positive Rho(D) Type Positive Antibody Screen Negative 02/01/20 02/01/20 02/01/20 16:32 16:32 16:32 WBC RBC Hgb Hct MCV MCH MCHC RDW Plt Count MPV Neut % (Auto) Lymph % (Auto) [place] % (Auto) Eos % (Auto) Baso % (Auto) Neut # (Auto) Lymph # (Auto) [place] # (Auto) Eos # (Auto) Baso # (Auto) Nucleated RBC % (auto) Nucleated RBCs # Specimen Type Sample Site ABG pH ABG pCO2 ABG pO2 ABG HCO3 ABG O2 Saturation ABG Base Excess Duncan Test A-a O2 Gradient Hematocrit Hgb O2 Saturation Carboxyhemoglobin Methemoglobin Total Hemoglobin Ionized Calcium O2 Delivery Device O2 Liters/Min Cash Applications Coordinator ID Sodium 135 L Potassium 3.6 Chloride 101 Carbon Dioxide 25 Anion Gap 12.6 BUN 20 Creatinine 0.7 GFR Calculation 83.2 L Glucose 123 H Estimat Average Glucose Hemoglobin A1c Calculated Osmolality 284 L Calcium 8.8 Phosphorus Magnesium Iron 122 TIBC 273 % Saturation 44.6 Unsat Iron Binding 151 Total Bilirubin 0.4 AST 17 ALT 17 Alkaline Phosphatase 87 NT-Pro-B Natriuret Pep 652 H Total Protein 6.5 L Albumin 3.8 Globulin 2.7 Triglycerides Cholesterol LDL Cholesterol, Calc Total VLDL Cholesterol HDL Cholesterol Cholesterol/HDL Ratio TSH 3.89 Blood Type Rho(D) Type Antibody Screen 02/02/20 02/02/20 02/02/20 04:12 05:34 05:34 WBC 10.5 H RBC 4.73 Hgb 14.4 Hct 44.7 MCV 94.5 MCH 30.4 MCHC 32.2 RDW 13.2 Plt Count 138 MPV 10.8 H Neut % (Auto) 84.6 Lymph % (Auto) 5.9 [place] % (Auto) 7.8 Eos % (Auto) 0.7 Baso % (Auto) 0.7 Neut # (Auto) 8.85 H Lymph # (Auto) 0.6 L [place] # (Auto) 0.8 Eos # (Auto) 0.1 Baso # (Auto) 0.1 Nucleated RBC % (auto) 0 Nucleated RBCs # 0.0 Specimen Type Arterial Sample Site Radial, right ABG pH 7.37 ABG pCO2 45.0 ABG pO2 58.3 L ABG HCO3 25.8 ABG O2 Saturation 91.1 ABG Base Excess 0.1 Duncan Test Pos A-a O2 Gradient 4.9 L Hematocrit 44.8 Hgb O2 Saturation 87.9 L Carboxyhemoglobin 2.8 Methemoglobin 0.8 Total Hemoglobin 14.6 Ionized Calcium 1.2 O2 Delivery Device Oxy mask O2 Liters/Min 12.0 Cash Applications Coordinator ID Harkr Sodium 133.0 133 L Potassium 4.4 4.2 Chloride 98 Carbon Dioxide 28 Anion Gap 11.2 BUN 17 Creatinine 0.6 GFR Calculation 99.4 Glucose 127.0 H 128 H Estimat Average Glucose Hemoglobin A1c Calculated Osmolality 279 L Calcium 9.1 Phosphorus 4.8 H Magnesium 2.1 Iron TIBC % Saturation Unsat Iron Binding Total Bilirubin 0.6 AST 20 ALT 17 Alkaline Phosphatase 92 NT-Pro-B Natriuret Pep Total Protein 6.8 Albumin 4.0 Globulin 2.8 Triglycerides Cholesterol LDL Cholesterol, Calc Total VLDL Cholesterol HDL Cholesterol Cholesterol/HDL Ratio TSH Blood Type Rho(D) Type Antibody Screen 02/02/20 02/02/20 05:34 05:34 WBC RBC Hgb Hct MCV MCH MCHC RDW Plt Count MPV Neut % (Auto) Lymph % (Auto) [place] % (Auto) Eos % (Auto) Baso % (Auto) Neut # (Auto) Lymph # (Auto) [place] # (Auto) Eos # (Auto) Baso # (Auto) Nucleated RBC % (auto) Nucleated RBCs # Specimen Type Sample Site ABG pH ABG pCO2 ABG pO2 ABG HCO3 ABG O2 Saturation ABG Base Excess Duncan Test A-a O2 Gradient Hematocrit Hgb O2 Saturation Carboxyhemoglobin Methemoglobin Total Hemoglobin Ionized Calcium O2 Delivery Device O2 Liters/Min Cash Applications Coordinator ID Sodium Potassium Chloride Carbon Dioxide Anion Gap BUN Creatinine GFR Calculation Glucose Estimat Average Glucose 111 Hemoglobin A1c 5.5 Calculated Osmolality Calcium Phosphorus Magnesium Iron TIBC % Saturation Unsat Iron Binding Total Bilirubin AST ALT Alkaline Phosphatase NT-Pro-B Natriuret Pep Total Protein Albumin Globulin Triglycerides Cancelled Cholesterol Cancelled LDL Cholesterol, Calc Cancelled Total VLDL Cholesterol Cancelled HDL Cholesterol Cancelled Cholesterol/HDL Ratio Cancelled TSH Blood Type Rho(D) Type Antibody Screen Cardiac Studies: No Data to Display
--- NOTE | 2020-02-02 09:21 | PM.CONSULT ---
Providers/Reason For Consult Consulting Physican/Specialty*: Vladislav Good MD Reason for Consult*: Displaced left femoral neck fracture Attending Physician: Yosef Lane MD Primary Care Provider: Thompson Zuluaga MD History of Present Illness History of Present Illness Lisset Murphy is a 69 year old female previously was fully ambulatory. She sustained a mechanical fall while going down stairs at home with immediate pain in her left lower extremity. She is transferred here by EMS where radiographs revealed a displaced left femoral neck fracture. He has been admitted to medicine due to her medical comorbidities and is scheduled for bipolar arthroplasty this morning. Meds/Allergies Home Medications and Allergies Home Medications Medication Instructions Recorded Confirmed Last Taken Type albuterol sulfate 90 mcg/actuation 2 puff INHALATION Q6H PRN 06/20/19 02/01/20 01/31/20 History aerosol inhaler diltiazem HCl 60 mg 120 mg PO DAILY cap 06/20/19 02/01/20 02/01/20 History capsule,extended release 12 hr aspirin 81 mg tablet,delayed 162 mg PO DAILY 01/22/20 02/01/20 02/01/20 History release fluticasone fur. 100 mcg-umeclid 1 inh INHALATION DAILY 90 Days 01/22/20 02/01/20 02/01/20 Rx 62.5 mcg-vilant 25 mcg #180 each inhalat.powder fluticasone propionate 50 1 spray INTRANASAL Q12H 60 Days 01/22/20 02/01/20 01/31/20 Rx mcg/actuation nasal #18.2 ml spray,suspension prednisone 5 mg tablet 5 mg PO DAILY tab 01/22/20 02/01/20 01/31/20 History citalopram 10 mg PO DAILY 02/01/20 02/01/20 01/31/20 History furosemide 20 mg PO DAILY 02/01/20 02/01/20 01/31/20 History Allergies Allergy/AdvReac Type Severity Reaction Status Date / Time No Known Allergies Allergy Verified 01/22/20 09:59 Current Medications Current Medications Generic Name Dose Route Start Last Admin Trade Name Freq PRN Reason Stop Dose Admin Acetaminophen 650 mg 02/01/20 19:41 02/01/20 23:39 Tylenol PO 650 mg Q6H PRN Administration Mild/Mod Pain Or Temp >/= 101 Hydrocodone Bitart/Acetaminophen 1 tab 02/01/20 19:41 02/02/20 07:38 [place] 5-325 Mg PO 1 tab Q4H PRN Administration MODERATE TO SEVERE PAIN Albuterol/Ipratropium 3 ml 02/02/20 08:00 02/02/20 07:58 Duoneb INHALATION 3 ml Q4H.RESPIRATORY GÓMEZ Administration Budesonide 0.5 mg 02/01/20 20:00 02/02/20 07:59 Pulmicort INHALATION 0.5 mg BID.RESPIRATORY GÓMEZ Administration Famotidine 20 mg 02/01/20 20:00 02/02/20 08:05 Pepcid Inj IVP 20 mg Q12H GÓMEZ Administration Fluticasone Propionate 1 spray 02/01/20 19:41 02/02/20 08:10 Flonase INTRANASAL 1 spray Q12H GÓMEZ Administration Methylprednisolone Sodium Succinate 60 mg 02/02/20 07:30 02/02/20 08:04 Solu-Medrol IVP 60 mg Q6H GÓMEZ Administration PFSH Acute PFSH: Medical History (Updated 02/02/20 @ 09:24 by Vladislav Good MD) Allergic rhinitis Asthma Chronic obstructive pulmonary disease COPD (chronic obstructive pulmonary disease) DVT (deep venous thrombosis) Essential (primary) hypertension Paroxysmal A-fib Surgical History H/O tubal ligation Family History Father CAD (coronary artery disease) Mother Cancer Social History Smoking and tobacco status: current every day smoker cigarettes Packs smoked per day: 1 Years cigarettes smoked: 50 [ Other cigarette details: Cutting down to 6 a day ] Quit status (tobacco): considering quitting Smoking risk assessment/counseling performed?: Yes Alcohol intake: never Lives independently: Yes Household members: none Marital status: Current occupational status: retired History of recent travel: No Current gender identity: Female Vitals/I&O/Wt Last Vital Signs Temp 98.3 F 02/02/20 09:18 Pulse 97 02/02/20 09:18 Resp 20 H 02/02/20 09:18 BP 156/81 02/02/20 09:18 Pulse Ox 94 02/02/20 09:18 02/01/20 02/02/20 02/02/20 22:59 06:59 14:59 Intake Total 350 / 350 Output Total 400 / 400 Balance 350 / 350 -400 / -50 Weight last 48 hrs Weight 151 lb 14.4 oz Weight 149 lb 14.4 oz Weight 140 lb Physical Exam Narrative: EXAM NARRATIVE: The patient is alert and oriented. He answers questions appropriately She has shortening and external rotation of her left hip. There is exquisite pain with motion of the left hip. Will flex and send her toes and her ankle on the left. Her sensation is intact to light touch in the left lower extremity. He has a palpable left dorsalis pedis pulse. Data Imaging^: Other Xray: My impression: Personally reviewed radiographs of the left hip. The patient has a displaced fracture of the left femoral neck A&P Assessment and plan (1) Subcapital fracture of left femur: I discussed options with the patient and her son by phone. I told them possible treatments for displaced femoral neck fracture would include nonoperative treatment, open reduction internal fixation, or hemiarthroplasty. I told them without treatment the patient would experience ongoing of pain that would limit mobility. This would require pain medications and place her at medical risks due to prolonged periods of bed rest. I discussed the possibility of open reduction internal fixation with pins. I warned them that for displaced fractures of the risk of nonunion and malunion is exceptionally high. In addition there is a high likelihood that the blood applied to the femoral head has been disrupted and that even with successful stabilization of the fracture the femoral head will go on to . I finally discussed the possibility of hemiarthroplasty. I think this would give the patient the greatest chance of being immediately mobilized. I discussed risk of a bleeding and a possible need for blood products. I discussed risk of deep venous thromboses and pulmonary emboli and the need for anticoagulation. She has had a previous DVT and she will be managed with Lovenox to prevent progression of that DVT. I discussed the use of the TXA that may be utilized to diminish blood loss. With a history of deep venous thromboses just 6 months ago I will avoid IV TXA and she will be given topical before closure I discussed risk of component failure and loosening that could require revision. I discussed the risk of dislocation and a bipolar arthroplasty which is quite unlikely. After a long discussion of options they agree to hemiarthroplasty of the hip. I told him ultimately the patient will likely require snf placement. Status: Acute (2) COPD (chronic obstructive pulmonary disease): Patient has had increasing oxygen requirements overnight. This has been discussed with anesthesia and the medicine team. I think it would be in her best interest to have the hip stabilized to allow her to be mobilized or a more aggressive pulmonary plan can be undertaken Status: Acute (3) DVT (deep venous thrombosis): This was diagnosed in Doppler in July and she has been managed with aspirin. She is at a higher risk for progression of deep venous thromboses and even pulmonary emboli. We will place her on anticoagulation prophylactically to prevent progression postoperatively. Status: Acute Coding Level of Care Code Acute Managed Services Sales Consultant for Nan Chaudhary Diagnoses Subcapital fracture of left femur S72.012A COPD (chronic obstructive pulmonary disease) J44.9 DVT (deep venous thrombosis) I82.409
[2020-02-02 10:24] LABS: Chol HDL Ratio 3.32 mg/dL (0.0-4.40); Cholesterol 252 mg/dL (0-200); HDL Cholesterol 76 mg/dL (60-100); LDL Cholesterol Calculated 162 mg/dL (50-129); Triglycerides 69 mg/dL (0-150); VLDL Cholestrol Calculation 14 mg/dL (0-30)
[2020-02-02 10:26] LABS: SARS Covid-2 Antigen Negative (Negative)
[2020-02-02] MEDS: tranexamic acid 1,000 mg/10mL SDV 2000 MG IRRIGATION (10:46)
--- NOTE | 2020-02-02 11:22 | P.OP_ITS ---
Operative Report Date of procedure: February 02, 2020 Pre-op Diagnosis: Left femoral neck fracture, displaced Post-op diagnosis: same Post-op Findings: Same Procedure Done: Bipolar arthroplasty Implants: [employer] HARDY collared size 8 stem 51 mm bipolar head 28 mm femoral head, standard neck Pathology: none sent Surgeon: Vladislav Good Anesthesia: Nerve Block (Spinal) Estimated blood loss (mL): 100 Complications: None Findings: The patient had a displaced fracture of the left femoral neck Condition: stable Disposition: ICU Procedure: The patient was taken to the operating room and a spinal l anesthesia was provided by the anesthesia service. They were given 2 g of Ancef. and positioned in the lateral position with the hip exposed. A 10 cm long incision was made over the greater trochanter with a scalpel blade. Dissection was carried down through the fascia kallie to the greater trochanter. The anterior two thirds of gluteus medius and minimus were elevated off the greater trochanter with electrocautery. The capsule was divided T like fashion. The hip was externally rotated and the neck brought up into the wound. An oscillating saw was really used to resect the neck just above the level of the lesser trochanter. The femoral head was removed and the acetabulumt sized to a 51 mm bipolar head. Sequential reaming of the canal was accomplished up to a size 8. The canal was broached to a size 8 and a size 8 [place] [employer] HARDY stem was press fit into place. A trial reduction with a standard mm neck provided excellent stability. The final head and neck were placed and the hip reduced. The anterior capsule were reapproximated with 1 Ethibond. The gluteus medius and minimus were repaired through the greater trochanter with 5 Ethibond and reinforced with 1 Ethibond. The fascia kallie was closed with 1 Ethibond. The subcutaneous tissues were closed with 2-0 Vicryl. The skin was closed with skin amanda. Sterile dressings were applied. The patient was placed in abduction pillow and taken recovery room in stable condition.
--- NOTE | 2020-02-02 11:49 | XRR_ITS ---
PROCEDURE INFORMATION: Exam: XR Left Hip with Pelvis when Performed Exam date and time: 02/02/2020 11:50 AM Age: 69 years old Clinical indication: Hip pain; Left hip; Prior surgery; Surgery date: Post-operative (0-2 days); Surgery type: Bipolar; Additional info: Left bipolar hip TECHNIQUE: Imaging protocol: XR Left hip with pelvis when performed. Views: 1 view. COMPARISON: CR XR hip LT 2-3V wo/w pel* [id number] 02/01/2020 3:54 PM FINDINGS: Bones/joints: Anatomic alignment of left hip hemiarthroplasty, in the setting of left hip fracture. Soft tissues: Postoperative subcutaneous emphysema. Vasculature: Vascular calcification. XR/XR hip LT 1V wo/w pel [id number] IMPRESSION: Anatomic alignment of left hip hemiarthroplasty, in the setting of left hip fracture.
--- NOTE | 2020-02-02 12:00 | PM.PACU ---
PACU note Post-Anesthesia Exam: awake and vital signs stable Disposition: other (to ICU)
[2020-02-02] MEDS: sodium chloride 0.9% 1,000 ML 80 ML IV (12:38)
--- NOTE | 2020-02-02 12:41 | PC.NURSE ---
recieved from or roger on l hip intact
--- NOTE | 2020-02-02 13:00 | PC.NURSE ---
weaning o2 at this time .
--- NOTE | 2020-02-02 14:33 | PM.PN ---
Subjective Subjective: Interval history: Overnight patient has required oxygen supplementation (2 L oxygen mask to maintain saturation over 90%. On my examination in PACU today patient was on room air saturating 80% denying of any nausea, vomiting, headache, dizziness, palpitation, difficulty in breathing and on putting her back on oxygen mask 10 L her saturation went up to 93% in less than 1 minute. She still complaining of pain in her hip. States it is somewhat from 11/11 at present. Vitals/I&O/Wt Last Vital Signs Temp 98.3 F 02/02/20 09:18 Pulse 88 02/02/20 12:20 Resp 16 02/02/20 12:20 BP 153/84 02/02/20 12:00 Pulse Ox 90 02/02/20 12:20 02/01/20 02/02/20 02/02/20 22:59 06:59 14:59 Intake Total 350 / 350 750 / 750 Output Total 400 / 400 300 / 300 Balance 350 / 350 -400 / -50 450 / 450 Weight last 48 hrs Weight 68.901 kg Weight 67.993 kg Weight 63.503 kg Physical Exam Narrative: EXAM NARRATIVE: General: In acute distress because of pain in left hip, AO x3 HEENT: PERRLA, pupils bilaterally equal and reactive Chest: Normal vesicular breath sounds, no added sounds, equal good air entry bilaterally CVS: S1-S2 regular, ejection systolic murmur at aortic area, no tachycardia, no gallops, no rubs Abdomen: Soft, nontender, no organomegaly, bowel sounds present Neuro: No focal deficits, no facial deformity, AO x3, power 5/5 in all limbs Urinary Catheter Management^: Sherman: Cath Placed During This Visit: yes Urinary Catheter Date of Insertion: 02/02/20 Urinary Catheter Time of Insertion: : Data : 02/02/20 05:34 02/02/20 05:34 A&P Assessment and plan (1) Hypoxia: Status: Acute (2) COPD (chronic obstructive pulmonary disease): Status: Acute (3) Subcapital fracture of left femur: Status: Acute (4) Paroxysmal A-fib: Status: Acute (5) Moderate aortic stenosis: Status: Acute (6) Essential (primary) hypertension: Status: Acute (7) DVT, bilateral lower limbs: Status: Acute Additional A&P Information Hypoxia: Most likely symptoms secondary to atelectasis, hyperventilation and mild COPD exacerbation on poor lung results. PE ruled out with CTA done earlier in the day today. No consolidation on chest imaging. Check procalcitonin, proBNP. No signs of fluid overload on the chest imaging. Check rapid Covid 19 antigen. Suspicion of COVID-19 is low at the moment as patient does not have any fever or any known contacts. For now we will keep patient on isolation precaution until results come back. If patient spikes fever will check for PCR as well. Start patient on Solu-Medrol 60 mg IV 6 hours. Continue with budesonide twice daily, DuoNebs every 4 hours and albuterol as needed. Wean off oxygen as able keeping saturation over 90%. Check urine Legionella, bacterial antigen. Check sputum culture. Echocardiogram done shows an EF of 60% with grade 1 diastolic dysfunction with RVSP of 36, severe aortic calcification with moderate aortic valve stenosis, trace MR. Incentive spirometry, flutter valve. Subcapital fracture of femur of left leg: Postop day 0. Appreciate Dr. Good's recommendations. Start on clear liquid diet for now and advance as able. Perioperative antibiotics and physical therapy as per Dr. Good. We will monitor hemoglobin. With consult with Dr. Good on when to start anticoagulation. Continue with Dilaudid 1 mg IV every 4 hour and Poneto 5 every 4 hour as needed. DVT: Bilateral DVT seen on lower limb Dopplers. We will start anticoagulation after discussion with Dr. Good. Paroxysmal A. fib: Rate controlled at present. Continue home dose of Cardizem. Cardiac monitoring. Hypertension: Goal blood pressure less than 140/90 mmHg. Blood pressure is mildly elevated. For now as patient is postoperative and drowsy will treat with labetalol as needed every 6 hourly. Once she is awake we will start her on oral medications. Continue other chronic medications. Will change medications as per the clinical picture. Cardiac diet at present, Full code. Discharge planning: Discussed in detail with patient regarding possible need for discharge to SNF for further rehabitation. She states she has a sister who will be around 24 7 and has a son and [id number] who lives nearby. She would prefer to go home with possible home health on discharge. PT/OT evaluation postoperatively. Attestations Medical Necessity Statement*: Patient needs further hospitalization for management of hypoxia due to COPD exacerbation, subcapital fracture of left femur, postoperative care, bilateral DVTs. Time Spent in Patient Care: Greater than 35 minutes (>than 50% of time spent in counselling and/or direct pt care on unit). Coding Level of Care Code Acute Flight Attendant/Inflight Supervisor for g Fwd Diagnoses Hypoxia R09.02 COPD (chronic obstructive pulmonary disease) J44.9 Subcapital fracture of left femur S72.012A Paroxysmal A-fib I48.0 Moderate aortic stenosis I35.0 Essential (primary) hypertension I10 DVT, bilateral lower limbs I82.403
[2020-02-02] MEDS: labetalol 5 mg/mL SDV 20mL 10 MG IVP (15:10)
[2020-02-02] MEDS: ondansetron 2 mg/ML SDV 2 mL 4 MG IVP (15:34)
[2020-02-02] MEDS: HYDROmorphone 1 mg/mL INJ 1 mL IVP (15:42)
--- NOTE | 2020-02-02 15:58 | PC.NURSE ---
pt with emesis following administration of PO hydrocodone.
[2020-02-02 16:18] LABS: Hematocrit 47.4 % (37.0-47.0); Hemoglobin 15.1 g/dL (11.5-15.3)
[2020-02-02 16:31] LABS: Bilirubin Urine Neg (Negative); Blood Urine 2+ (Negative); Glucose Urine UA Norm (Normal); Ketones Urine Negative (Negative); Leukocyte Esterase Urine Negative (Negative); Nitrate Urine Negative (Negative); Protein Urine Neg (Negative); RBC Urine 0-4 /hpf (0-2); Urine Appearance Clear (CLEAR); Urine Color Yellow (Yellow); Urobilinogen Urine 1 mg/dL (Negative); WBC Urine RARE /hpf (0-5); pH Urine 6 (5-7)
[2020-02-02 16:32] LABS: Add Urine Culture? No; Bacteria Urine TRACE /hpf
[2020-02-02] MEDS: ceFAZolin 1,000 MG in sodium chloride 0.9% (plus) 50 ML 100 MG IV (18:40)
--- NOTE | 2020-02-02 19:41 | USCV_ITS ---
Lisset Murphy Age: 69 Gender: F : 1950 Exam Date: 02/02/2020 07:09 Ordering Phys: Yosef Lane MD Technologist: Coleen Schwartz Exam Location: [facility] [place] Indication: MURMUR BP: 155 / 83 HR: 99 Rhythm: Sinus Technical Quality: Technically difficult study MEASUREMENTS (Male / Female) Normal Values 2D ECHO LV Diastolic Diameter PLAX 3.4 cm 4.2 - 5.9 / 3.9 - 5.3 cm LV Systolic Diameter PLAX 2.0 cm LV Chamber Size 3.0 cm IVS Diastolic Thickness 1.3 cm 0.6 - 1.0 / 0.6 - 0.9 cm IVS Systolic Thickness 1.6 cm LVPW Diastolic Thickness 1.1 cm 0.6 - 1.0 / 0.6 - 0.9 cm LVPW Systolic Thickness 1.3 cm RV Chamber Size 2.8 cm LVOT Diameter 2.2 cm LV Ejection Fraction 2D Teich 70.7 % LA Diameter 3.3 cm LA Width 2.7 cm LA Height 4.5 cm RA Width 2.4 cm RA Height 3.3 cm M-MODE LV Diastolic Diameter MM 3.6 cm 4.2 - 5.9 / 3.9 - 5.3 cm LV Systolic Diameter MM 2.2 cm LV Ejection Fraction MM Teich 72.2 % IVS Diastolic Thickness MM 1.5 cm 0.6 - 1.0 / 0.6 - 0.9 cm IVS Systolic Thickness MM 1.1 cm LVPW Diastolic Thickness MM 1.4 cm 0.6 - 1.0 / 0.6 - 0.9 cm LVPW Systolic Thickness MM 1.5 cm RV Diastolic Diameter MM 1.2 cm Aortic Annulus Diameter 2.6 cm LA Ao Ratio MM 1.4 MV E Point Septal Separation 0.6 cm DOPPLER AV Peak Velocity 191.3 cm/s LVOT Peak Velocity 127.0 cm/s AV Area Cont Eq vti 2.7 cm squared AV Area Cont Eq pk 2.6 cm squared MV Area PHT 1.8 cm squared Mitral E to A Ratio 0.6 MV E' Velocity 43.0 cm/s Mitral E to MV E' Ratio 13.2 Mitral E to LV E' Lateral Ratio 11.9 Mitral E to LV E' Septal Ratio 14.6 TR Peak Velocity 289.0 cm/s TR Peak Gradient 33.4 mmHg TV Peak E Velocity 79.0 cm/s Right Atrial Pressure 3.0 mmHg Pulmonary Artery Systolic Pressu 36.4 mmHg PV Peak Velocity 88.0 cm/s RV Acceleration Time 0.1 s RV Ejection Time 0.2 s RV AcT/ET 0.2 FINDINGS Left Ventricle Normal left ventricular cavity size. Normal left ventricular systolic function. No regional wall motion abnormalities. Left ventricular ejection fraction is estimated at 60 %. Grade I/IV diastolic dysfunction (abnormal relaxation filling pattern), normal to mildly elevated filling pressures. Right Ventricle The right ventricle is normal in size and function. Mild pulmonary hypertension, RVSP 36.4 mmHg. Right Atrium The right atrium is normal in size. Left Atrium The left atrium is normal in size. Mitral Valve Moderately thickened mitral valve. Moderate mitral annular calcification. No mitral valve stenosis. Trace mitral valve regurgitation. Aortic Valve Severe aortic valve calcification. Moderate aortic valve stenosis by visualization however aortic valve area is not well visualized may need to repeat assessment as the current assessment may not be accurate. Velocity across the aortic valve 2.0 m/s.no aortic valve regurgitation. Tricuspid Valve Trace to mild tricuspid valve regurgitation. Pulmonic Valve Structurally normal pulmonic valve without significant stenosis. There is no pulmonic regurgitation. Pericardium Normal pericardium without effusion. Aorta Normal ascending aorta dimension. CONCLUSIONS 1-Normal left ventricular cavity size. Normal left ventricular systolic function. No regional wall motion abnormalities. Left ventricular ejection fraction is estimated at 60 %. Grade I/IV diastolic dysfunction (abnormal relaxation filling pattern), normal to mildly elevated filling pressures. 2-Severe aortic valve calcification. Moderate aortic valve stenosis by visualization however aortic valve area is not well visualized may need to repeat assessment as the current assessment may not be accurate. Velocity across the aortic valve 2.0 m/s.no aortic valve regurgitation. 3-Moderately thickened mitral valve. Moderate mitral annular calcification. No mitral valve stenosis. Trace mitral valve regurgitation. 4-The right ventricle is normal in size and function. Mild pulmonary hypertension, RVSP 36.4 mmHg. 5-There is no pericardial effusion. 6-Right atrial pressure is around 5 mm of mercury. 7-There are no prior echocardiogram studies to compare. Yvonne Dash MD (Electronically Signed) Final Date: 02 February 2020 14:26 S
--- NOTE | 2020-02-02 19:41 | USR_ITS ---
PROCEDURE INFORMATION: Exam: US Duplex Lower Extremity Veins, Bilateral Exam date and time: 02/02/2020 6:23 AM Age: 69 years old Clinical indication: Condition or disease; Other: Dvt; Additional info: R/O dvt TECHNIQUE: Imaging protocol: Real-time duplex ultrasound of the extremities with 2-D horvath scale, color Doppler flow and spectral waveform analysis with image documentation. Complete exam focused on the bilateral lower extremity veins. COMPARISON: Prior lower extremity venous ultrasound exam and report dated 07/16/19 are not available for correlation at the time of interpretation. FINDINGS: Right deep veins: Nonocclusive thrombus in the right superficial femoral and popliteal veins, of uncertain age. Right superficial veins: Saphenofemoral junction is patent without thrombus. Left deep veins: Nonocclusive thrombus in the left popliteal vein, of uncertain age. Left superficial veins: Saphenofemoral junction is patent without thrombus. Soft tissues: Unremarkable. US/[place] [id number] IMPRESSION: 1. Bilateral nonocclusive deep venous thrombosis of uncertain age. 2. Correlation with previous study dated 07/16/19 is recommended. The aforementioned findings initiated a critical results communication pathway. An addendum will be issued at the time of clincian notification.
[2020-02-02 21:27] LABS: Fibrinogen 436 mg/dL (174-498)
--- NOTE | 2020-02-02 23:09 | PC.NURSE ---
assessment AOx3 with intermittent confusion on day, speech clear, motorcycle police equal, lungs clear with slight expiratory wheeze to bilateral bases, regular unlabored RR 10L high flow NC, small amount dark red blood to dressing on L hip surgical site, surrounding skin warm,supine 45 degrees call light within reach
[2020-02-03] VITALS (24 sets, daily range): BP systolic 117–156; BP diastolic 61–99; PULSE 70–122; RESP 13–26; TEMP 36.8–37.1; O2SAT 90–96
[2020-02-03] MEDS: ipratropium-albuterol 3 mL Neb INHALATION ×6 (00:40→23:31)
[2020-02-03] MEDS: ceFAZolin 1,000 MG in sodium chloride 0.9% (plus) 50 ML 100 MG IV ×2 (01:49→09:47)
[2020-02-03] MEDS: HYDROcodone-acetaminophen 5-325 mg Tablet 1 TAB PO ×2 (02:46→19:58)
[2020-02-03] MEDS: ondansetron 2 mg/ML SDV 2 mL 4 MG IVP (03:00)
--- NOTE | 2020-02-03 03:08 | PC.NURSE ---
Requested Nicotine patch, Dr. Diggs ordered daily patch, Pt okay with starting in AM
--- NOTE | 2020-02-03 03:09 | PC.NURSE ---
Reported Lower back pain, PRN hydrocodone administered per request
[2020-02-03 05:04] LABS: Basophils % 0.1 %; Hematocrit 43.8 % (37.0-47.0); Hemoglobin 14.2 g/dL (11.5-15.3); Lymphocytes # 0.3 10^3/uL (0.8-4.8); Lymphocytes % 2.7 %; Mean Corpuscular HGB Conc 32.4 g/dL (30.0-36.0); Mean Corpuscular Hemoglobin 30.4 pg (28.0-34.0); Mean Corpuscular Volume 93.8 fL (81-99); Mean Platelet Volume 11.6 fL (7.4-10.4); Monocytes # 0.4 10^3/uL (0.2-0.9); Monocytes % 3.3 %; Neutrophils # 10.42 10^3/uL (1.8-7.7); Neutrophils % 93.4 %; Nucleated Red Blood Cells % 0 %; Platelet Count 117 10^3/cmm (130-400); Red Blood Count 4.67 10^6/uL (4.1-5.3); White Blood Count 11.2 10^3/uL (4.0-10.0)
[2020-02-03 05:31] LABS: Alanine Aminotransferase 17 U/L (0-33); Albumin Level 3.6 g/dL (3.5-5.2); Alkaline Phosphatase 80 IU/L (35-105); Anion Gap 11.4 (5-19); Aspartate Amino Transferase 21 U/L (0-32); Blood Urea Nitrogen 13 mg/dL (8-23); Calcium 9.2 mg/dL (8.5-10.5); Carbon Dioxide 28 mmol/L (22-29); Chloride 100 mmol/L (98-107); Globulin 3.1 g/dL (1.3-4.6); Glomerular Filtration Rate 99.4 mL/min (90-130); Glucose 161 mg/dL (65-115); Osmolality Calculated 284 mOsm/kg (285-295); Potassium 4.4 mmol/L (3.5-5.1); Sodium 135 mmol/L (136-145); Total Bilirubin 0.5 mg/dL (0.15-1.2); Total Protein 6.7 g/dL (6.6-8.7)
--- NOTE | 2020-02-03 06:35 | NUR.SHIFT ---
Uneventful night, took NC off 1x desat to 82 but gomez quickly to 91 once back on, lungs clear but diminished, denied SOB, small blood spot to L hip slightly increased in size but not significantly, area traced to monitor, no C/O pain after administering PRN Pangburn, AO x4, confusion cleared up through shift, supine 45 degrees call light within reach
[2020-02-03] MEDS: fluticasone nasal spray 16gm Btl 1 SPRAY INTRANASAL ×2 (06:43→19:17)
--- NOTE | 2020-02-03 07:11 | XRR_ITS ---
PROCEDURE INFORMATION: Exam: XR Chest, 1 View Exam date and time: 02/03/2020 7:17 AM Age: 69 years old Clinical indication: Shortness of breath; Additional info: SOB TECHNIQUE: Imaging protocol: XR of the chest Views: Frontal portable upright view of the chest. COMPARISON: CR XR chest 1V portable [id number] 02/02/2020 4:42 AM FINDINGS: Tubes, catheters and devices: EKG leads are present overlying the chest. Lungs: Mild increase in patchy interstitial and airspace opacity lateral left upper lung zone. Coarse bilateral central pulmonary markings, stable. The pulmonary vasculature is stable. Mild left lateral basilar subsegmental atelectasis. Lateral right mid lung zone subsegmental atelectasis. Pleural space: No pleural effusion. No pneumothorax. Heart/Mediastinum: The heart is normal in size and contour. Mediastinum: Stable. Bones/joints: Stable. XR/XR chest 1V portable [id number] IMPRESSION: 1. Mild increase in patchy interstitial and airspace opacity lateral left upper lung zone. Pneumonitis is difficult to exclude. Clinical correlation is recommended. 2. Mild left lateral basilar subsegmental atelectasis. 3. Lateral right mid lung zone subsegmental atelectasis.
--- NOTE | 2020-02-03 07:11 | USCV_ITS ---
Katherine Lisset Age: 69 Gender: F : 1950 Exam Date: 02/03/2020 08:16 Ordering Phys: Yosef Lane MD Technologist: Coleen Schwartz Exam Location: [facility] [place] Indication: Right heart strain BP: 155 / 85 HR: 111 Rhythm: Sinus tachycardia Technical Quality: Adequate MEASUREMENTS (Male / Female) Normal Values 2D ECHO LV Diastolic Diameter PLAX 3.0 cm 4.2 - 5.9 / 3.9 - 5.3 cm LV Systolic Diameter PLAX 2.1 cm IVS Diastolic Thickness 1.5 cm 0.6 - 1.0 / 0.6 - 0.9 cm IVS Systolic Thickness 1.5 cm LVPW Diastolic Thickness 1.4 cm 0.6 - 1.0 / 0.6 - 0.9 cm LVPW Systolic Thickness 1.8 cm RV Chamber Size 3.1 cm LV Ejection Fraction 2D Teich 57.9 % RA Width 3.0 cm RA Height 4.0 cm M-MODE LV Diastolic Diameter MM 3.4 cm 4.2 - 5.9 / 3.9 - 5.3 cm LV Systolic Diameter MM 1.8 cm LV Ejection Fraction MM Teich 77.7 % IVS Diastolic Thickness MM 1.6 cm 0.6 - 1.0 / 0.6 - 0.9 cm IVS Systolic Thickness MM 1.6 cm LVPW Diastolic Thickness MM 1.6 cm 0.6 - 1.0 / 0.6 - 0.9 cm LVPW Systolic Thickness MM 1.7 cm RV Diastolic Diameter MM 1.1 cm DOPPLER TR Peak Velocity 334.3 cm/s TR Peak Gradient 44.7 mmHg Right Atrial Pressure 3.0 mmHg Pulmonary Artery Systolic Pressu 47.7 mmHg FINDINGS Left Ventricle Normal left ventricular cavity size. Normal left ventricular systolic function. No regional wall motion abnormalities. Left ventricular ejection fraction is estimated at 65 %. Right Ventricle Normal right ventricular size. Moderate pulmonary hypertension, RVSP 47.7 mmHg. Right Atrium The right atrium is normal in size. Left Atrium The left atrium is normal in size. Mitral Valve Moderately thickened mitral valve. Moderate mitral annular calcification. No mitral valve stenosis. Aortic Valve Severe aortic valve calcification. Aortic valve is not well- visualized though probably there is mild aortic valve stenosis or restriction Tricuspid Valve Essb-[id number] tricuspid valve regurgitation. Pulmonic Valve Structurally normal pulmonic valve without significant stenosis. There is no pulmonic regurgitation. Pericardium Normal pericardium without effusion. Aorta Normal ascending aorta dimension. CONCLUSIONS 1-Normal left ventricular cavity size. Normal left ventricular systolic function. No regional wall motion abnormalities. Left ventricular ejection fraction is estimated at 65 %. 2-Normal right ventricular size. Moderate pulmonary hypertension, RVSP 47.7 mmHg. No right ventricular strain. 3-Moderately thickened mitral valve. Moderate mitral annular calcification. No mitral valve stenosis. 4-Severe aortic valve calcification. Aortic valve is not well- visualized though probably there is mild aortic valve stenosis or restriction. 5-Ssok-sw-moderate tricuspid valve regurgitation. 6-There is no pericardial effusion. 7-Right atrial pressure is around 5 mm of mercury. 8-No significant change since the prior echocardiogram study of 02/02/2020. Yvonne Dash MD (Electronically Signed) Final Date: 03 February 2020 15:57 S
[2020-02-03] MEDS: budesonide 0.5 mg/2 mL Neb INHALATION ×2 (07:36→20:48)
--- NOTE | 2020-02-03 07:39 | PC.NURSE ---
pt on phone with son upset that she has had nothing to eat since tuesday .explained had ordered reg diet for her this am and that it would be here in next 15 min offerd milk and crackers refused at this time dont like grahm crackers or milk coffee given
[2020-02-03 07:40] LABS: NT Pro B Type Natriuretic Pept 3325 pg/mL (0-125); Procalcitonin 0.06 ng/mL (0-0.5)
--- NOTE | 2020-02-03 07:47 | PC.NURSE ---
ilene torres here served gave pt purse to find phone supervisor toy assembly.. not there phone charging at desk
[2020-02-03 08:12] LABS: ABG PCO2 40.5 mmHg (35-45); ABG PH Result 7.44 (7.35-7.45); Alveolar-Arterial Oxygen Gradi 5.6 mmHg (5-10); Arterial Blood Gas Hematocrit 43.1 % (37-47); Base Excess ABG 2.9 mmol/L (-2.0-2.0); Blood Gas Allen Test Pos; Blood Gas Operator Identificat CAK; Blood Gas Sample Site Radial, left; Blood Gas Sample Type Arterial; Carboxyhemoglobin 3.3 %THgb (0.4-20.1); HCO3 ABG 27.3 mmol/L (22-26); HGB O2 Sat 88.1 % (95-100); Ionized Calcium Level - ABG 1.3 mmol/L (1.1-1.4); Methemoglobin 1.4 % (0.4-1.5); Oxygen Device NC; Oxygen Saturation ABG 92.4; PO2 ABG 58.6 mmHg (80.0-100.0); Potassium Level - ABG 4.4 mmol/L (3.5-5.0); Total Hemoglobin 14.1 g/dL (12-16)
--- NOTE | 2020-02-03 08:59 | P.PN_ITS ---
Subjective Subjective: Interval history: No acute events overnight. On examination patient lying comfortably in bed still requiring up to 12 L nasal cannula oxygen supplementation to maintain saturation at 90. She is able to have full conversation without any difficulty in breathing. She states she wants to go home to get her close. Had to discuss and weight loss counselor her in detail regarding her medical condition at present. Denies any nausea, vomiting, headache. ABG done today morning shows a pH of 7.4, PCO2 48, PO2 of 58.6 with a gradient of 5.6 on 10 L nasal cannula. Labs and vitals noted. Vitals/I&O/Wt Last Vital Signs Temp 98.7 F 02/03/20 04:24 Pulse 104 H 02/03/20 08:50 Resp 22 H 02/03/20 08:50 BP 156/88 02/03/20 08:50 Pulse Ox 94 02/03/20 08:50 02/02/20 02/03/20 02/03/20 23:59 06:59 14:59 Intake Total 250 / 250 Output Total Balance 250 / 250 Weight last 48 hrs Weight 69.853 kg Weight 68.901 kg Weight 67.993 kg Weight 63.503 kg Physical Exam Narrative: EXAM NARRATIVE: General: In no acute distress, AO x3, extremity development documentation, able to have complete conversation HEENT: PERRLA, pupils bilaterally equal and reactive Chest: Normal vesicular breath sounds, no added sounds, equal good air entry bilaterally CVS: S1-S2 regular, ejection systolic murmur at aortic area, no tachycardia, no gallops, no rubs Abdomen: Soft, nontender, no organomegaly, bowel sounds present Neuro: No focal deficits, no facial deformity, AO x3, power 5/5 in all limbs Extremities: Surgical site with very minimal soakage of the bandage. Urinary Catheter Management^: Sherman: Cath Placed During This Visit: yes Reason for Continuing Indwelling Catheter: Accurate Measurement of Urinary Output in Critically Ill Patients Urinary Catheter Date of Insertion: 02/02/20 Urinary Catheter Time of Insertion: : Data : 02/03/20 04:20 02/03/20 04:20 A&P Assessment and plan (1) Hypoxia: Status: Acute (2) COPD (chronic obstructive pulmonary disease): Status: Acute (3) Subcapital fracture of left femur: Status: Acute (4) Paroxysmal A-fib: Status: Acute (5) Moderate aortic stenosis: Status: Acute (6) Essential (primary) hypertension: Status: Acute (7) DVT, bilateral lower limbs: Status: Acute Additional A&P Information Hypoxia: Severe hypoxia. Pulmonary thromboembolism ruled out with CTA done earlier in the day today. No consolidation on chest imaging. No signs of fluid overload on the chest imaging. Rapid COVID-19 antigen negative. Suspicion of COVID-19 is low at the moment as patient does not have any fever or any known contacts. For now we will keep patient on isolation precaution until results come back. If patient spikes fever will check for PCR as well. Check procalcitonin to rule out bacterial pneumonia, patient has remained afebrile. Does not have any signs of viral prodrome at present. Check proBNP, stat limited echocardiogram to rule out right heart strain. Case discussed with Dr. Sullivan who is outpatient wood carver hand for Ms. Darling. Etiology most likely secondary to either possible fat embolism versus COPD exacerbation in setting of mild CHF because of moderate aortic stenosis. Continue with Solu-Medrol 60 mg every 6 hours. Continue with budesonide twice daily, DuoNebs every 4 hours and albuterol as needed. Switch over to heated high flow to have a better control of the flow. We will try to come down on FiO2 while maintaining the flow rate on heated high flow keeping saturation over 90%. Lasix IV 20 mg daily. Strict input output charting. Daily weights. Urine Legionella, bacterial antigen pending. Patient has remained afebrile and procalcitonin has remained negative yesterday as well. Sputum culture awaited. Even though the suspicion is low but because patient continues to remain critically sick we will start patient on Zosyn at renal dose along with azithromycin. Will de-escalate or stop antibiotics if patient remains afebrile and hemodynamically stable and for next 48 hours. For possible fat embolism start patient on heparin drip without bolus weight- based. Did have a long discussion regarding this with patient and patient's son Mr. Peraza about potential benefits versus risk factors due to heparin drip in setting of recent ORIF in last 24 hours. Did discuss that given the chronology of events in which patient started having worsening difficulty in breathing in 12 hours post fracture and after ruling out everything else chances of fat embolism is high. Also discussed that the treatment option is anticoagulation with heparin while monitoring her hemoglobin. Also discussed anticoagulation would put patient at a higher risk of bleeding especially from the surgical site and if that happens it is possible that patient might require blood transfusion or even revisit to the OR for hemostasis. Patient sons verbalizes understanding and is okay with heparin drip for now. Case discussed with Dr. Good as well and he thinks if heparin drip is required we should start the patient on same. Incentive spirometry, flutter valve. Check hemoglobin every 12 hourly. Subcapital fracture of femur of left leg: Postop day 1. Appreciate Dr. Good's recommendations. Limited physical therapy today as patient has been started on heparin drip. Out of bed to chair. We will monitor hemoglobin. With consult with Dr. Godo on when to start anticoagulation. Continue with Dilaudid 1 mg IV every 4 hour and [place] 5 every 4 hour as needed. DVT: Bilateral DVT seen on lower limb Dopplers. Heparin drip As above. Hypertension: Goal blood pressure less than 140/90 mmHg. Blood pressure is mildly elevated. Have increase the dose of Cardizem to 60 mg every 6 hour. If blood pressure does not get controlled will start on amlodipine. Paroxysmal A. fib: Rate controlled at present. Cardizem as above. Stop aspirin as patient will be on heparin drip. We will have to revisit with patient regarding anticoagulation as an outpatient because of DVT, paroxysmal A. fib. Continue other chronic medications. Will change medications as per the clinical picture. Cardiac diet at present, Full code. Discharge planning: Discussed in detail with patient regarding possible need for discharge to SNF for further rehabitation. She states she has a sister who will be around 24 7 and has a son and [id number] who lives nearby. She would prefer to go home with possible home health on discharge. PT/OT evaluation postoperatively. Guarded prognosis. Attestations 2 Medical Necessity Statement*: Patient needs further hospitalization for management of acute hypoxia most likely secondary to fat embolism in setting of postoperative care for ORIF and COPD. Time Spent in Patient Care: Greater than 35 minutes (>than 50% of time spent in counselling and/or direct pt care on unit) . 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
[2020-02-03] MEDS: nicotine 14 mg Patch 1 PATCH TRANSDERMA (09:24)
[2020-02-03] MEDS: citalopram 20 mg Tablet 10 MG PO (09:25)
[2020-02-03] MEDS: FUROsemide 10 mg/mL SDV 2mL 20 MG IVP (09:25)
[2020-02-03] MEDS: famotidine 20 mg Tablet PO ×2 (09:26→17:11)
[2020-02-03] MEDS: aspirin 81 mg EC Tablet 162 MG PO (09:26)
[2020-02-03] MEDS: dilTIAZem ER (12HR) 60 mg Capsule 120 MG PO (09:26)
[2020-02-03] MEDS: azithromycin 250 mg Tablet 500 MG PO (09:26)
[2020-02-03] MEDS: heparin drip 25,000 UNIT/500 ML PREMIX 19.6 UNIT IV (09:49)
[2020-02-03] MEDS: piperacillin-tazobactam 3.375 GM in sodium chloride 0.9% (plus) 50 ML IV ×2 (10:28→17:11)
--- NOTE | 2020-02-03 11:33 | PC.CHAP ---
Pastoral Care Encounter/Spiritual Assessment Type of Contact [] Declined explosive operator supervisor visit [] Patient/Family/Request visit [] Outpatient visit [] Follow-up visit [] Physician referral [] Code/Alert [] Routine visit [] Staff referral [] Actively dying [] Patient sleeping [] Family support [] [] Out of room [] Palliative care [] [X] Receiving care in room [] Pre-surgical visit [] Trauma [] Long length of stay [] ICU visit [] Other: Relational/Emotional Strength [] Patient feels connected with others/family/visitors/staff [] Distress [] Loneliness/isolation [] Abandonment Spirituality of Patient [] Person of [place] [] Attends Anabaptist of their [place] [] Believes in Prayer [] Reads Bible or Zoroastrian materials [] There are Spiritual issues to be addressed Automotive Wholesale Parts Advisor Interventions [] Prayer [] Active listening [] Non-anxious presence [] Spiritual/emotional support [] Crisis/trauma care [] Spiritual counseling [] Bereavement support [] Provided bereavement packet [] Provided Bible/devotional materials [] Provided toy/stuffed animal, coloring book to patient or family member [] Provided Communion [] Anointing/[place] [] Salvation [] Completed spiritual assessment [] Other: Impact on Illness or Injury [] Angry [] Fearful [] Anxious [] Often cries [] Exhaustion [] Unable to work [] Unable to attend synagogue [] Unable to walk/stand [] Unable to read [] Unable to drive [] Unable to eat/drink [] Unable to sleep [] Unable to be with family [] Patient intubated [] Other: Summary Time spent with patient
[2020-02-03 12:13] LABS: Eosinophil Urine No Eosinophils Seen; Urine Eosinophil Count 0 (0-0)
--- NOTE | 2020-02-03 13:35 | ANE.PACU2 ---
Inpatient post-anesthesia follow up: Airway intact: Yes Vital signs: Temperature 98.7 F Pulse Rate [Monito r] 101 Pulse Rate [Curren t] 122 Pulse Rate 106 Respiratory Rate [ Current] 20 Respiratory Rate 26 Blood Pressure [Le ft Arm] 155/88 Blood Pressure 154/99 Pulse Oximetry [Cu rrent] 94 Pulse Oximetry 96 Oxygen Delivery Me thod Heated High Flow Oxygen Flow Rate [ Current] 25 Oxygen Flow Rate 25 Fraction of Inspir ed Oxygen [ 75 Current] Fraction of Inspir ed Oxygen 74 Hydration adequate: Yes Nausea and vomiting: No Pain level: 2 Mental status: Baseline Additional Comments: Sherman still in, patient has been up to commode. No residual numbness in lower extremities. Spinal site without signs of infection. No headache.
[2020-02-03 16:00] LABS: Hematocrit 44.5 % (37.0-47.0); Hemoglobin 14.3 g/dL (11.5-15.3)
[2020-02-03 16:09] LABS: Partial Thromboplastin Time 47.4 SECONDS (23.9-36.7)
[2020-02-03] MEDS: dilTIAZem 60 mg Tablet PO ×2 (17:11→23:00)
--- NOTE | 2020-02-03 18:08 | PC.NURSE ---
ptt back 47 increased hepain with no bolus .. Dr aware at this sunny
--- NOTE | 2020-02-03 20:04 | PC.NURSE ---
Patient sitting up in chair in room working word puzzle. Patient is alert and orientated. Patient is able to voice pain, concerns and questions. Patient is on high flow oxygen at 45% FIO2. Dressing on post surgical incision left hip is still intact and drainage circled from previous shift. Patient denied pain earlier, and then requested pain medication before going to bed, that patient was beginning to hurt. Pain medication administered per orders. Sherman in place and draining appropriately. Lung sounds diminished at bases. Call light within reach. Continue care.
[2020-02-03 23:51] LABS: Partial Thromboplastin Time 68.6 SECONDS (23.9-36.7)
[2020-02-04] VITALS (29 sets, daily range): BP systolic 113–165; BP diastolic 59–91; PULSE 73–99; RESP 15–25; TEMP 36.6–36.9; O2SAT 86–99; BMI 23.0
[2020-02-04] MEDS: piperacillin-tazobactam 3.375 GM in sodium chloride 0.9% (plus) 50 ML IV ×2 (01:00→10:00)
--- NOTE | 2020-02-04 02:42 | PC.NURSE ---
Patient woke up around 0230 and was very disorientated. Retail Shift Manager and other nurse Craig worked with reorienting patient to surroundings and occurrence. Patient knew she needed to be in the hospital but had a hard time comprehending that she was in hospital currently. Patient was adamant she needed to get up and go get her car to go to the hospital. Retail Shift Manager sat with patient and continued to explain the situation again. Patient is now more acclimated to her surroundings and is currently sitting up in chair in room. Patients V/S are WNL and smile, speech, and optometric coordinator strength are all WNL. Patient denies pain, call light is within reach. Continue care.
[2020-02-04] MEDS: ipratropium-albuterol 3 mL Neb INHALATION ×5 (03:54→20:00)
[2020-02-04] MEDS: dilTIAZem 60 mg Tablet PO ×3 (05:01→18:18)
--- NOTE | 2020-02-04 06:15 | PC.NURSE ---
SHIFT SUMMARY: Uneventful shift. Patient is currently sitting up in chair in room and has been since approximately 0230. Patient's heparin gtt is still running per protocol and orders. No new drainage/bleeding noted to left hip. Patient is orientated to surroundings from previous episode of intermittent confusion upon waking up. Call light within reach. continue care.
[2020-02-04 07:32] LABS: Basophils % 0.1 %; Hematocrit 40.7 % (37.0-47.0); Hemoglobin 13.4 g/dL (11.5-15.3); Lymphocytes # 0.2 10^3/uL (0.8-4.8); Lymphocytes % 1.9 %; Mean Corpuscular HGB Conc 32.9 g/dL (30.0-36.0); Mean Corpuscular Hemoglobin 30.9 pg (28.0-34.0); Mean Corpuscular Volume 93.8 fL (81-99); Mean Platelet Volume 11.6 fL (7.4-10.4); Monocytes # 0.6 10^3/uL (0.2-0.9); Monocytes % 4.9 %; Neutrophils # 10.54 10^3/uL (1.8-7.7); Neutrophils % 91.9 %; Nucleated Red Blood Cells % 0 %; Platelet Count 132 10^3/cmm (130-400); Red Blood Count 4.34 10^6/uL (4.1-5.3); Red Cell Distribution Width 13.1 % (12.1-15.1); White Blood Count 11.5 10^3/uL (4.0-10.0)
[2020-02-04] MEDS: budesonide 0.5 mg/2 mL Neb INHALATION ×2 (07:40→20:00)
[2020-02-04 07:43] LABS: Partial Thromboplastin Time 60.6 SECONDS (23.9-36.7)
[2020-02-04] MEDS: fluticasone nasal spray 16gm Btl 1 SPRAY INTRANASAL ×2 (07:45→21:06)
[2020-02-04 07:51] LABS: Alanine Aminotransferase 19 U/L (0-33); Albumin Level 3.8 g/dL (3.5-5.2); Alkaline Phosphatase 80 IU/L (35-105); Anion Gap 10.9 (5-19); Aspartate Amino Transferase 22 U/L (0-32); Blood Urea Nitrogen 21 mg/dL (8-23); Calcium 9.3 mg/dL (8.5-10.5); Carbon Dioxide 30 mmol/L (22-29); Chloride 95 mmol/L (98-107); Globulin 3.1 g/dL (1.3-4.6); Glomerular Filtration Rate 99.4 mL/min (90-130); Glucose 145 mg/dL (65-115); Osmolality Calculated 280 mOsm/kg (285-295); Potassium 3.9 mmol/L (3.5-5.1); Sodium 132 mmol/L (136-145); Total Bilirubin 0.5 mg/dL (0.15-1.2); Total Protein 6.9 g/dL (6.6-8.7)
[2020-02-04] MEDS: famotidine 20 mg Tablet PO ×2 (09:59→18:18)
[2020-02-04] MEDS: FUROsemide 10 mg/mL SDV 2mL 20 MG IVP (09:59)
[2020-02-04] MEDS: citalopram 20 mg Tablet 10 MG PO (09:59)
[2020-02-04] MEDS: azithromycin 250 mg Tablet 500 MG PO (09:59)
--- NOTE | 2020-02-04 09:59 | PC.CHAP ---
Pastoral Care Encounter/Spiritual Assessment Type of Contact [] Declined stores laborer visit [] Patient/Family/Request visit [] Outpatient visit [] Follow-up visit [] Physician referral [] Code/Alert [x] Routine visit [] Staff referral [] Actively dying [] Patient sleeping [] Family support [] [] Out of room [] Palliative care [] [] Receiving care in room [] Pre-surgical visit [] Trauma [] Long length of stay [] ICU visit [] Other: Relational/Emotional Strength [] Patient feels connected with others/family/visitors/staff [] Distress [] Loneliness/isolation [] Abandonment Spirituality of Patient [] Person of [place] [] Attends Restorationism of their [place] [] Believes in Prayer [] Reads Bible or Yazidism materials [] There are Spiritual issues to be addressed Pulmonary Fellow Interventions [x] Prayer [x] Active listening [x] Non-anxious presence [x] Spiritual/emotional support [] Crisis/trauma care [] Spiritual counseling [] Bereavement support [] Provided bereavement packet [] Provided Bible/devotional materials [] Provided toy/stuffed animal, coloring book to patient or family member [] Provided Communion [] Anointing/[place] [] Salvation [x] Completed spiritual assessment [] Other: Impact on Illness or Injury [] Angry [] Fearful [] Anxious [] Often cries [] Exhaustion [] Unable to work [] Unable to attend episcopalian [] Unable to walk/stand [] Unable to read [] Unable to drive [] Unable to eat/drink [] Unable to sleep [] Unable to be with family [] Patient intubated [] Other: Summary Patient feeling stronger .. beginning to exercise with new hip Time spent with patient 10min
[2020-02-04] MEDS: nicotine 14 mg Patch 1 PATCH TRANSDERMA (10:00)
--- NOTE | 2020-02-04 10:13 | PM.PN ---
Subjective Subjective: Interval history: Continues to have high oxygen requirement, currently on heated high flow 25 L, 45%; otherwise hemodynamically stable and afebrile. Slight leukocytosis, stable hemoglobin and renal function. Had 1100 mL urine output overnight. Remains on heparin drip. POD # 2 s/p ORIF of left subcapital fracture. Very pleasant, in good spirits, has been quite active. Case discussed with Dr. Sullivan, will plan on transition to [facility], and switch to [place]. Medications: Reviewed: Yes Medication Review Details: Active Medications Generic Name Dose Route Start Last Admin Trade Name Freq PRN Reason Stop Dose Admin Acetaminophen 650 mg 02/01/20 19:41 02/01/20 23:39 Tylenol PO 650 mg Q6H PRN Administration Mild/Mod Pain Or Temp >/= 101 Hydrocodone Bitart /Acetaminophen 1 tab 02/01/20 19:41 02/03/20 19:58 [place] 5-325 Mg PO 1 tab Q4H PRN Administration MODERATE TO SEVER E PAIN Albuterol Sulfate 2 puff 02/02/20 11:49 Ventolin INHALATION Q6H PRN Shortness Of Haylee th Albuterol/Ipratrop ium 3 ml 02/02/20 08:00 02/04/20 07:40 Duoneb INHALATION 3 ml Q4H.RESPIRATORY S CH Administration Azithromycin 500 mg 02/03/20 09:00 02/04/20 09:59 Zithromax PO 02/05/20 23:59 500 mg DAILY GÓMEZ Administration Protocol Bisacodyl 10 mg 02/01/20 19:41 Dulcolax PO DAILY PRN CONSTIPATION Budesonide 0.5 mg 02/01/20 20:00 02/04/20 07:40 Pulmicort INHALATION 0.5 mg BID.RESPIRATORY S CH Administration Citalopram Hydrobr omide 10 mg 02/02/20 09:00 02/04/20 09:59 Celexa PO 10 mg DAILY GÓMEZ Administration Diltiazem HCl 60 mg 02/03/20 15:00 02/04/20 05:01 Cardizem PO 60 mg Q6H GÓMEZ Administration Famotidine 20 mg 02/03/20 09:00 02/04/20 09:59 Pepcid Tab PO 20 mg BID GÓMEZ Administration Fluticasone Propio cb 1 spray 02/01/20 19:41 02/04/20 07:45 Flonase INTRANASAL 1 spray Q12H GÓMEZ Administration Furosemide 20 mg 02/03/20 08:45 02/04/20 09:59 Lasix IVP 20 mg Q24H GÓMEZ Administration Hydromorphone HCl 1 mg 02/02/20 14:30 02/02/20 15:42 Dilaudid Inj IVP 1 mg Q4H PRN Administration PAIN Heparin Sodium/Sod ium Chloride 25,000 unit in 50 0 mls @ 0 mls/hr 02/03/20 09:00 02/03/20 09:49 Heparin Drip IV 14 unit/kg/hr .Q0M GÓMEZ 19.6 mls/hr Administration Protocol Per Protocol Piperacillin Sod/T azobactam 50 mls @ 12.5 mls /hr 02/03/20 10:00 02/04/20 10:00 Sod 3.375 gm/ So dium Chloride IV 12.5 mls/hr Q8H GÓMEZ Administration Protocol Methylprednisolone Sodium Succinate 60 mg 02/02/20 07:30 02/04/20 07:43 Solu-Medrol IVP 60 mg Q6H GÓMEZ Administration Nicotine 1 patch 02/03/20 09:00 02/04/20 10:00 Nicoderm 14 Mg P atch TRANSDERMA 1 patch DAILY GÓMEZ Administration Non-Formulary Medi cation 1 inh 02/02/20 09:00 02/03/20 09:27 Fluticasone-Umec lidin-Vilanter [Tr elegy Ellipta] INHALATION 1 inh DAILY GÓMEZ Administration Ondansetron HCl 4 mg 02/01/20 19:41 02/03/20 03:00 Zofran IVP 4 mg Q8H PRN Administration vomiting, or N/V if npo No Known Allergies Allergy (Verified 01/22/20 09:59) Vitals/I&O/Wt Last Vital Signs Temp 98.3 F 02/04/20 08:00 Pulse 86 02/04/20 08:00 Resp 21 H 02/04/20 08:00 BP 131/81 02/04/20 08:00 Pulse Ox 89 L 02/04/20 08:00 02/03/20 02/04/20 02/04/20 22:59 06:59 14:59 Intake Total 620 / 1120 530 / 1650 440 / 440 Output Total 1000 / 1000 1100 / 2100 Balance -380 / 120 -570 / -450 440 / 440 Weight last 48 hrs Weight 69.853 kg Physical Exam Const: COMMON NORMALS: no acute distress, patient oriented x3 and alert GENERAL APPEARANCE: cooperative and comfortable ORIENTATION/CONSCIOUSNESS: Yes awake OTHER: -sitting in chair by bedside, looks appropriate for age HENMT: COMMON NORMALS: normocephalic, atraumatic, hearing grossly normal bilaterally and moist oral mucous membranes HEAD & SCALP: normocephalic and atraumatic Eye: COMMON NORMALS: Equal, round and reactive pupils present, EOMs intact bilaterally and conjunctivae normal CONJUNCTIVA: Yes conjunctivae normal PUPIL: Yes Equal, round and reactive pupils present Neck/C-Spine: COMMON NORMALS: full ROM GENERAL: Yes normal visual inspection and Yes trachea midline Resp: COMMON NORMALS: normal respiratory effort, No retractions and No use of accessory muscles EFFORT & INSPECTION: Yes able to speak in complete sentences, Yes symmetric chest movement and Yes tachypneic (intermittently) OTHER: -on HHFNC, 25 L, 45% -diminished though equal breath sounds bilaterally Cardio: COMMON NORMALS: regular rate, regular rhythm, S1 normal heart sound present, S2 normal heart sound present and No murmurs present (Cardio) RATE: regular rate RHYTHM: regular rhythm HEART SOUNDS: S1 normal heart sound present and S2 normal heart sound present GI: COMMON NORMALS: Normal to inspection, nondistended, normoactive bowel sounds present, Soft to palpation and non-tender PALPATION: Yes Soft to palpation : BLADDER/KIDNEY EXAM: Yes catheter in place Catheter type (Female): urethral Extremity: COMMON NORMALS: normal to inspection, no clubbing, cyanosis or edema and no pedal edema NARRATIVE EXTREMITY EXAM: -noted dressing over lateral L hip; no apparent hematoma, soft to palpation Neuro: COMMON NORMALS: patient oriented x3, moves all extremities, no focal motor deficits and no sensory deficits noted SENSORIUM/ORIENTATION: Yes alert Psych: COMMON NORMALS: mental status grossly normal, Normal thought process present, cooperative, normal affect and speech normal SPEECH: Yes normal speech THOUGHT PROCESS: Normal thought process present Skin: COMMON NORMALS: no rashes or lesions noted, no jaundice, no petechiae and no mottling GENERAL SKIN EXAM: no rashes or lesions noted Urinary Catheter Management^: Sherman: Cath Placed During This Visit: yes Reason for Continuing Indwelling Catheter: Accurate Measurement of Urinary Output in Critically Ill Patients Urinary Catheter Date of Insertion: 02/02/20 Urinary Catheter Time of Insertion: 10:20 Data : 02/04/20 07:10 02/04/20 07:10 Micro: Microbiology 02/03/20 09:00 Bacterial Antigens - Final Urine Kidney 02/03/20 09:00 Legionella Urinary Antigen - Final Urine Catheterized A&P Assessment and plan (1) Respiratory failure with hypoxia: -Not oxygen dependent at baseline -Noted acute significant increase in oxygen requirement on the day after admission and oxygen requirement has remained high. In light of noted bilateral DVTs of indeterminate age surgery, clinical concern for fat embolism -On heparin drip, transition to oral anticoagulation, has tolerated Eliquis well in the past -Continue to monitor respiratory status closely -Wean oxygen requirement as tolerated -Pulmonology evaluation by Dr. Sullivan appreciated -On empiric antibiotic treatment given clinical decompensation though no definitive evidence of consolidation on x-ray, afebrile though noted minimal leukocytosis -continue IV steroids, Neb treatments, IS -Rapid COVID-19 testing negative. Negative bacterial antigens and Legionella Status: Acute Qualifiers: Chronicity: acute Qualified Code(s): J96.01 - Acute respiratory failure with hypoxia (2) DVT, bilateral lower limbs: -Noted to have bilateral non-occlusive DVTs of uncertain age involving the right superficial femoral and popliteal veins as well as left popliteal vein -CTA negative for PE -On heparin drip for anticoagulation -has prior hx of DVT, previously treated with 3-month course of Eliquis Status: Acute Qualifiers: Affected thrombotic vein of extremity: unspecified vein of extremity Chronicity: unspecified Qualified Code(s): I82.403 - Acute embolism and thrombosis of unspecified deep veins of lower extremity, bilateral (3) Subcapital fracture of left femur: -secondary to mechanical fall -s/p ORIF by Dr. Good; POD # 2 -EBL-100 mL -PT/OT evaluations appreciated -strict fall precautions, pain control as needed -bowel regimen -Sherman catheter in place, assess daily for removal Status: Resolved Qualifiers: Encounter type: initial encounter Fracture type: closed Qualified Code(s): S72.012A - Unspecified intracapsular fracture of left femur, initial encounter for closed fracture (4) Moderate aortic stenosis: -Noted moderate on echo; also noted to have EF=65%, no RWMA, G1DD, moderate pulmonary HTN, mild-moderate TR Status: Acute (5) Essential (primary) hypertension: -VSS; continue to monitor -continue oral antihypertensives Status: Chronic (6) COPD (chronic obstructive pulmonary disease): -increased oxygen requirement as noted above -on empiric antibiotics, neb treatments, steroids -continue to monitor respiratory status -home oxygen evaluation prior to d/c as is not oxygen dependent at baseline Status: Acute Qualifiers: COPD type: COPD with acute exacerbation Qualified Code(s): J44.1 - Chronic obstructive pulmonary disease with (acute) exacerbation (7) Paroxysmal A-fib: -telemetry monitoring; rate controlled -continue cardizem -ASA on hold as on heparin drip; was not on other AC previously Status: Chronic Additional A&P Information -mild hyponatremia; continue to trend Na -Chronic smoker; 1 PPD -Chronic diastolic CHF; [id number]; on diuretics -cardiac diet as tolerated -GI ppx with famotidine -DVT ppx not needed as on heparin drip -Dispo: home with HH; has family close by -Code status: FULL code -continue ICU care Attestations Medical Necessity Statement*: Patient requires hospitalization for continued post-op care given recent hip fracture surgery, continued close monitoring of respiratory status given continued high oxygen requirement, need for continued anticoagulation in light of high clinical suspicion for fat embolism syndrome. Time Spent in Patient Care: Greater than 35 minutes (>than 50% of time spent in counselling and/or direct pt care on unit). 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
[2020-02-04] MEDS: polyethylene glycol 3350 Pkt 17 gm PO (10:53)
--- NOTE | 2020-02-04 10:54 | PC.NURSE ---
Pt requesting that her atkins removed. Dr. Giraldo wants to see her first. Pt agrees.
--- NOTE | 2020-02-04 16:20 | PM.PN ---
Subjective Subjective: Interval history: This is a 69-year-old lady well-known to me from her previous office visits. The patient has gold class D COPD. Her FEV1 is 62%. The patient is also currently undergoing work-up for possible lung malignancy with enlarging right upper lobe pulmonary nodule. The patient is in the process of getting a PET scan done. She has a history of DVT that was diagnosed in July 2019 and at that time she had received Eliquis for 3 months and was on aspirin therapy. I had last seen the patient in the office on January 29. The patient presented to the hospital after sustaining a mechanical fall in January 31 and was found to have subcapital femoral fracture on the left side. The patient developed hypoxia after admission to the hospital and the chest x-ray revealed bibasilar infiltrate. The CT angiogram of the chest revealed no pulmonary embolism. The patient has significant emphysema and previously mentioned pulmonary nodule. There was mild bilateral atelectasis. No pleural effusion. An echocardiogram revealed normal ejection fraction with grade 1 diastolic dysfunction moderate aortic stenosis. There is no significant evidence of RV dilation or dysfunction. There was mildly elevated RVSP. The lower extremity Doppler revealed bilateral nonocclusive deep venous thrombosis of uncertain age. When compared to venous duplex in July of this year the DVT had progressed. The patient was started on heparin on Tuesday. Today I had evaluated the patient in the ICU and she seems to be doing much better. Her oxygenation is better. She is on high flow nasal cannula 40% oxygen with saturation in the mid 90s. Completely comfortable sitting in the chair and had ambulated multiple times today. The patient underwent bipolar arthroplasty on the Vitals/I&O/Wt Last Vital Signs Temp 98.3 F 02/04/20 08:00 Pulse 89 02/04/20 14:00 Resp 16 02/04/20 11:00 BP 133/69 02/04/20 14:00 Pulse Ox 97 02/04/20 14:00 02/04/20 02/04/20 02/04/20 06:59 14:59 22:59 Intake Total 530 / 1650 660 / 660 Output Total 1100 / 2100 Balance -570 / -450 660 / 660 Weight last 48 hrs Weight 154 lb Physical Exam Narrative: EXAM NARRATIVE: General: Patient is awake alert and oriented, in no acute distress. Neck: No JVD, no cervical or supraclavicular lymphadenopathy. Respiratory: Auscultation: Diminished breath sound bilaterally both anteriorly and posteriorly, vesicular breath sounds with prolonged expiration, no crackles wheezing or rhonchi, reduced vocal resonance bilaterally Cardiovascular: Regular rate and rhythm, S1-S2 present, no murmur Abdomen: Soft, nontender, nondistended, positive bowel sound Musculoskeletal: Gait not examined Skin: Healing surgical incisions on the left hip Neuro: Mental status is normal, no gross cranial nerve deficit, normal motor and coordination. Urinary Catheter Management^: Sherman: Cath Placed During This Visit: yes Reason for Continuing Indwelling Catheter: Accurate Measurement of Urinary Output in Critically Ill Patients Urinary Catheter Date of Insertion: 02/02/20 Urinary Catheter Time of Insertion: 10: Data : 02/04/20 07:10 02/04/20 07:10 Micro: Microbiology 02/03/20 09:00 Bacterial Antigens - Final Urine Kidney 02/03/20 09:00 Legionella Urinary Antigen - Final Urine Catheterized Attestation for Other Data: I personally reviewed and interpreted the following: Other data: I have reviewed the patient laboratory, microbiologic and radiologic data. A&P Assessment and plan (1) Respiratory failure with hypoxia: The patient has gold class D COPD. She has significant centrilobular emphysema bilaterally. The likely explanation for acutely worsening hypoxia would be fat embolism and or development of atelectasis. The patient seems to be doing much better now. We will continue with the outpatient inhaler regimen. The patient is currently on 40% oxygen high flow nasal cannula. Would recommend switching it to ox dependent and titrate based on her requirement to maintain SPO2 greater than 88%. I have informed and discussed this with the patient. Status: Acute Qualifiers: Chronicity: acute Qualified Code(s): J96.01 - Acute respiratory failure with hypoxia (2) DVT, bilateral lower limbs: The patient had significant extension of bilateral DVTs. She would need lifelong anticoagulation at this point. Would recommend doing apixaban 10 mg twice a day for the next 2 days followed by 5 mg twice a day for 6 months after that this can be reduced to 2.5 mg twice a day indefinitely. Please stop the heparin drip now so there is no more anticoagulation effect when the patient is supposed to receive apixaban at 8 PM today. Status: Acute Qualifiers: Affected thrombotic vein of extremity: unspecified vein of extremity Chronicity: unspecified Qualified Code(s): I82.403 - Acute embolism and thrombosis of unspecified deep veins of lower extremity, bilateral (3) Pulmonary nodule: The patient has enlarging right upper lobe lung nodule. This could certainly be lung cancer which could also have put her at high risk for DVTs. 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
--- NOTE | 2020-02-04 16:34 | P.PN_ITS ---
Subjective Subjective: Interval history: Patient up in chair in good spirits. Wants to go home tomorrow. Vitals/I&O/Wt Last Vital Signs Temp 98.3 F 02/04/20 08:00 Pulse 89 02/04/20 14:00 Resp 16 02/04/20 11:00 BP 133/69 02/04/20 14:00 Pulse Ox 97 02/04/20 14:00 02/04/20 02/04/20 02/04/20 06:59 14:59 22:59 Intake Total 530 / 1650 660 / 660 Output Total 1100 / 2100 Balance -570 / -450 660 / 660 Weight last 48 hrs Weight 154 lb Physical Exam Narrative: EXAM NARRATIVE: Minimal staining the left hip dressing. Left thigh soft with minimal swelling Urinary Catheter Management^: Sherman: Cath Placed During This Visit: yes Reason for Continuing Indwelling Catheter: Accurate Measurement of Urinary O utput in Critically Ill Patients Urinary Catheter Date of Insertion: 02/02/20 Urinary Catheter Time of Insertion: 10:20 Data : 02/04/20 07:10 02/04/20 07:10 Micro: Microbiology 02/03/20 09:00 Bacterial Antigens - Final Urine Kidney 02/03/20 09:00 Legionella Urinary Antigen - Final Urine Catheterized A&P Assessment and plan (1) Postoperative state: Patient may progress with full weightbearing. She can be set up with home health for physical therapy. Needs to follow-up with me in 2 weeks for staple removal. 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
--- NOTE | 2020-02-04 16:35 | PC.SOCIAL ---
IMM Update Pg. 2 of IMM updated. Initialed, dated, and timed and placed in chart. Copy provided.
[2020-02-04 16:54] LABS: Partial Thromboplastin Time 62.9 SECONDS (23.9-36.7)
--- NOTE | 2020-02-04 16:57 | PC.RESP ---
Smoking Cessation and Pulmonary Rehab information sent to patient.
[2020-02-04] MEDS: sennosides-docusate Tablet 1 TAB PO (18:18)
[2020-02-04] MEDS: apixaban 5 mg Tablet 10 MG PO (18:18)
[2020-02-05] VITALS (17 sets, daily range): BP systolic 130–162; BP diastolic 62–97; PULSE 65–92; RESP 15–29; TEMP 36.7; O2SAT 82–96; BMI 23.0
[2020-02-05] MEDS: ipratropium-albuterol 3 mL Neb INHALATION ×2 (01:03→08:30)
[2020-02-05] MEDS: dilTIAZem 60 mg Tablet PO ×2 (01:33→06:28)
[2020-02-05 03:50] LABS: Basophils % 0.1 %; Hematocrit 40.2 % (37.0-47.0); Hemoglobin 13.1 g/dL (11.5-15.3); Lymphocytes # 0.2 10^3/uL (0.8-4.8); Lymphocytes % 2.2 %; Mean Corpuscular HGB Conc 32.6 g/dL (30.0-36.0); Mean Corpuscular Hemoglobin 30.3 pg (28.0-34.0); Mean Corpuscular Volume 93.1 fL (81-99); Mean Platelet Volume 11.3 fL (7.4-10.4); Monocytes # 0.7 10^3/uL (0.2-0.9); Monocytes % 7.2 %; Neutrophils # 8.42 10^3/uL (1.8-7.7); Nucleated Red Blood Cells % 0 %; Platelet Count 136 10^3/cmm (130-400); Red Blood Count 4.32 10^6/uL (4.1-5.3); White Blood Count 9.4 10^3/uL (4.0-10.0)
[2020-02-05 04:01] LABS: Anion Gap 13.3 (5-19); Blood Urea Nitrogen 26 mg/dL (8-23); Calcium 9.3 mg/dL (8.5-10.5); Carbon Dioxide 30 mmol/L (22-29); Chloride 92 mmol/L (98-107); Glomerular Filtration Rate 99.4 mL/min (90-130); Glucose 157 mg/dL (65-115); Osmolality Calculated 280 mOsm/kg (285-295); Potassium 4.3 mmol/L (3.5-5.1); Sodium 131 mmol/L (136-145)
[2020-02-05] MEDS: fluticasone nasal spray 16gm Btl 1 SPRAY INTRANASAL (07:07)
--- NOTE | 2020-02-05 07:37 | P.DS_ITS ---
Discharge Providers Date of Admission: 02/01/20 17:56 Date of Discharge: February 05, 2020 Attending Provider at Admission: Yosef Lane MD Attending Provider at Discharge: Kristal Patel MD Consults: Orthopedic surgery, pulmonology Primary Care Provider: Thompson Zuluaga MD Diagnoses at Discharge Discharge Diagnosis (1) Respiratory failure with hypoxia: Status: Acute Permanent problem details: -Not oxygen dependent at baseline -Noted acute significant increase in oxygen requirement on the day after admission and oxygen requirement has remained high. In light of noted bilateral DVTs of indeterminate age surgery, clinical concern for fat embolism -Off heparin drip, transitioned to oral anticoagulation, has tolerated Eliquis well in the past -Continue to monitor respiratory status closely -Wean oxygen requirement as tolerated -Pulmonology evaluation by Dr. Sullivan appreciated -On empiric antibiotic treatment given clinical decompensation though no definitive evidence of consolidation on x-ray, afebrile though noted minimal leukocytosis -continue IV steroids, Neb treatments, IS -Rapid COVID-19 testing negative. Negative bacterial antigens and Legionella Qualifiers: Chronicity: acute Qualified Code(s): J96.01 - Acute respiratory failure with hypoxia (2) DVT, bilateral lower limbs: Status: Acute Permanent problem details: -Noted to have bilateral non-occlusive DVTs of uncertain age involving the right superficial femoral and popliteal veins as well as left popliteal vein -CTA negative for PE -Off heparin drip for anticoagulation -has prior hx of DVT, previously treated with 3-month course of Eliquis. Will likely need lifelong anticoagulation Qualifiers: Affected thrombotic vein of extremity: unspecified vein of extremity Chronicity: unspecified Qualified Code(s): I82.403 - Acute embolism and thrombosis of unspecified deep veins of lower extremity, bilateral (3) Subcapital fracture of left femur: Status: Resolved Permanent problem details: -secondary to mechanical fall -s/p bipolar arthroplasty by Dr. Good; POD # 3 -EBL-100 mL -PT/OT evaluations appreciated -strict fall precautions, pain control as needed -bowel regimen -Sherman catheter removed Qualifiers: Encounter type: initial encounter Fracture type: closed Qualified Code(s): S72.012A - Unspecified intracapsular fracture of left femur, initial encounter for closed fracture (4) Moderate aortic stenosis: Status: Acute Permanent problem details: -Noted moderate on echo; also noted to have EF=65%, no RWMA, G1DD, moderate pulmonary HTN, mild-moderate TR (5) Essential (primary) hypertension: Status: Chronic Permanent problem details: -VSS; continue to monitor -continue oral antihypertensives (6) COPD (chronic obstructive pulmonary disease): Status: Acute Permanent problem details: -increased oxygen requirement as noted above -on empiric antibiotics, neb treatments, steroids -continue to monitor respiratory status -home oxygen evaluation prior to d/c as is not oxygen dependent at baseline Qualifiers: COPD type: COPD with acute exacerbation Qualified Code(s): J44.1 - Chronic obstructive pulmonary disease with (acute) exacerbation (7) Paroxysmal A-fib: Status: Chronic Permanent problem details: -telemetry monitoring; rate controlled -continue cardizem -ASA on hold as on heparin drip; was not on other AC previously Other Information Additional DC diagnoses/information: -mild hyponatremia; continue to trend Na -Chronic smoker; 1 PPD; smoking cessation encouraged -Chronic diastolic CHF; BNP-3325; on diuretics Reason for Visit Reason for Visit: FALL/ HIP PAIN Hospital Course Hospital Course: Patient is admitted to the medical-surgical floor after having been found to have a left subcapital hip fracture. Orthopedic surgery was consulted. Overnight patient's oxygen requirement is noted to increase significantly at which point she has moved to ICU due to concern for continued decompensation. Surgery was uneventful and she is POD # 3 s/p bipolar arthroplasty today. She is doing well from a post-op perspective. However, due to noted acute increased oxygen requirement and in light of fracture, there was concern for possible VTE. Venous duplex revealed bilateral DVTs of indeterminate age at which point patient was started on therapeutic anticoagulation with heparin drip. Clinically, there was concern for fat embolism syndrome. Pulmonology was consulted and recommended continued anticoagulation and close monitoring of her respiratory status. Patient has done well in the past 48 hours and oxygen requirement has been weaned down. Patient is not oxygen depe ndent at baseline so home oxygen evaluation has been done prior to discharge. She has been transitioned to oral anticoagulation; she has been treated with Eliquis in the past and tolerated it well, and as this is her second episode of VTE, she will likely need lifelong anticoagulation. She is to be weightbearing as tolerated per orthopedic surgery. She will require appropriate follow-up with pulmonology, she was already following up with Dr. Sullivan as an outpatient. She will also require appropriate follow-up with her primary care physician within 1 week. She is encouraged to seek medical attention immediately should any of her symptoms worsen particularly in terms of persistent shortness of breath, persistently low oxygen levels. She has done well with physical therapy and has opted for return home with home health services. Sherman catheter was discontinued and she has been able to void independently without difficulty. She has been afebrile and hemodynamically stable. She will need appropriate follow-up with Dr. Good in 2 weeks. Discharge Summary: -Patient to follow-up with her primary care physician within 1 week -Patient to follow-up with Dr. Sullivan in 2 weeks -Patient to follow-up with Dr. Good in 2 weeks Physical Exam Const: COMMON NORMALS: no acute distress, patient oriented x3 and alert GENERAL APPEARANCE: cooperative and comfortable ORIENTATION/CONSCIOUSNESS: Yes awake OTHER: -sitting in chair by bedside, looks appropriate for age HENMT: COMMON NORMALS: normocephalic, atraumatic, hearing grossly normal bilaterally and moist oral mucous membranes HEAD & SCALP: normocephalic and atraumatic Eye: COMMON NORMALS: Equal, round and reactive pupils present, EOMs intact bilaterally and conjunctivae normal CONJUNCTIVA: Yes conjunctivae normal PUPIL: Yes Equal, round and reactive pupils present Neck/C-Spine: COMMON NORMALS: full ROM GENERAL: Yes normal visual inspection and Yes trachea midline Resp: COMMON NORMALS: normal respiratory effort, No retractions and No use of accessory muscles EFFORT & INSPECTION: Yes able to speak in complete sentences, Yes symmetric chest movement and Yes tachypneic (intermittently) OTHER: -on 4 L NC -diminished though equal breath sounds bilaterally Cardio: COMMON NORMALS: regular rate, regular rhythm, S1 normal heart sound pr esent, S2 normal heart sound present and No murmurs present (Cardio) RATE: regular rate RHYTHM: regular rhythm HEART SOUNDS: S1 normal heart sound present and S2 normal heart sound present GI: COMMON NORMALS: Normal to inspection, nondistended, normoactive bowel so unds present, Soft to palpation and non-tender PALPATION: Yes Soft to palpation Extremity: COMMON NORMALS: normal to inspection, no clubbing, cyanosis or edema and no pedal edema NARRATIVE EXTREMITY EXAM: -noted dressing over lateral L hip; no apparent hematoma, soft to palpation Neuro: COMMON NORMALS: patient oriented x3, moves all extremities, no focal motor deficits and no sensory deficits noted SENSORIUM/ORIENTATION: Yes alert Psych: COMMON NORMALS: mental status grossly normal, Normal thought process present, cooperative, normal affect and speech normal SPEECH: Yes normal speech THOUGHT PROCESS: Normal thought process present Skin: COMMON NORMALS: no rashes or lesions noted, no jaundice, no petechiae and no mottling GENERAL SKIN EXAM: no rashes or lesions noted Urinary Catheter Management^: Sherman: Cath Placed During This Visit: yes, but has since been removed by the nurse Reason for Continuing Indwelling Catheter: Accurate Measurement of Urinary Output in Critically Ill Patients Urinary Catheter Date of Insertion: 02/02/20 Urinary Catheter Time of Insertion: 10: Date Urinary Catheter Removed: 02/04/20 Time Urinary Catheter Discontinued: 17:00 Discharge Data Data Completed and Pending: Completed Studies During Hospitalization Category Date Time Status CT angio chest PE protcl [id number] Stat Cat Scan 02/02/20 04:27 Completed XR chest 1V abby ble [id number] Routine Exams 02/03/20 07:11 Completed XR chest 1V abby ble [id number] Stat Exams 02/01/20 15:43 Completed XR chest 1V abby ble [id number] Stat Exams 02/02/20 03:41 Completed XR femur LT min 2 V* [id number] Stat Exams 02/01/20 15:43 Completed XR hip LT 1V wo/w pel [id number] Routine Exams 02/02/20 11:49 Completed XR hip LT 2-3V wo /w pel* [id number] Stat Exams 02/01/20 15:43 Completed CV echo complete* [id number] Routine Ultrasound 02/02/20 19:41 Completed CV echo limited 9 4808 Stat Ultrasound 02/03/20 07:11 [place] [id number] Urgent Ultrasound 02/02/20 19:41 Completed Pending at discharge Category Date Time Status Sputum Culture an d Gram Stain Stat Lab 02/02/20 14:42 Uncollected Labs from last 24 hours 02/05/20 02/05/20 02/04/20 03:05 03:05 16:12 WBC 9.4 RBC 4.32 Hgb 13.1 Hct 40.2 MCV 93.1 MCH 30.3 MCHC 32.6 RDW 13.0 Plt Count 136 MPV 11.3 H Neut % (Auto) 90.0 Lymph % (Auto) 2.2 Hand % (Auto) 7.2 Eos % (Auto) 0.0 Baso % (Auto) 0.1 Neut # (Auto) 8.42 H Lymph # (Auto) 0.2 L Hand # (Auto) 0.7 Eos # (Auto) 0.0 Baso # (Auto) 0.0 Nucleated RBC % (a uto) 0 Nucleated RBCs # 0.0 APTT 62.9 H Sodium 131 L Potassium 4.3 Chloride 92 L Carbon Dioxide 30 H Anion Gap 13.3 BUN 26 H Creatinine 0.6 GFR Calculation 99.4 Glucose 157 H Calculated Osmolal ity 280 L Calcium 9.3 Total Bilirubin AST ALT Alkaline Phosphata se Total Protein Albumin Globulin 02/04/20 02/04/20 07:10 07:10 WBC RBC Hgb Hct MCV MCH MCHC RDW Plt Count MPV Neut % (Auto) Lymph % (Auto) Hand % (Auto) Eos % (Auto) Baso % (Auto) Neut # (Auto) Lymph # (Auto) Hand # (Auto) Eos # (Auto) Baso # (Auto) Nucleated RBC % (a uto) Nucleated RBCs # APTT 60.6 H Sodium 132 L Potassium 3.9 Chloride 95 L Carbon Dioxide 30 H Anion Gap 10.9 BUN 21 Creatinine 0.6 GFR Calculation 99.4 Glucose 145 H Calculated Osmolal ity 280 L Calcium 9.3 Total Bilirubin 0.5 AST 22 ALT 19 Alkaline Phosphata se 80 Total Protein 6.9 Albumin 3.8 Globulin 3.1 Vitals: Last Vital Signs Temp 98.0 F 02/05/20 06:00 Pulse 70 02/05/20 06:00 Resp 15 02/05/20 06:00 BP 135/86 02/05/20 06:00 Pulse Ox 95 02/05/20 06:00 Discharge Plan Discharge Patient Disposition: Home Health Service Condition: Stable Prescriptions: New hydrocodone-acetaminophen 5-325 mg tablet 1 tab PO Q4H Qty: 30 RF: 0 polyethylene glycol 3350 17 gram Powder In Packet 17 g PO DAILY Qty: 30 RF: 0 sennosides-docusate sodium 8.6-50 mg Tablet 1 tab PO BID Qty: 60 RF: 0 Eliquis DVT-PE Treat 30D Start 5 mg (74 tabs) tablets,dose pack See Rx Instructions .ROUTE .COMPLEX Qty: 74 RF: 0 Continued diltiazem HCl 60 mg capsule,extended release 12 hr 120 mg PO DAILY RF: 0 albuterol sulfate [ProAir HFA] 90 mcg/actuation HFA aerosol inhaler 2 puff INHALATION Q6H PRN (Reason: Shortness Of Breath) RF: 0 prednisone 5 mg tablet 5 mg PO DAILY RF: 0 fluticasone propionate [Flonase Allergy Relief] 50 mcg/actuation spray,suspension 1 spray INTRANASAL Q12H 60 Days Qty: 18.2 RF: 3 Trelegy Ellipta 100-62.5-25 mcg blister with device 1 inh INHALATION DAILY 90 Days Qty: 180 RF: 3 citalopram 10 mg tablet 10 mg PO DAILY RF: 0 furosemide 20 mg tablet 20 mg PO DAILY RF: 0 Discontinued aspirin [Adult Aspirin Regimen] 81 mg tablet,delayed release (DR/EC) 162 mg PO DAILY RF: 0 Discharge Orders: Discharge Order (Routine); Ordered 02/05/20 Ordered By: Kristal Patel Other Ambulatory Orders: DME: Oxygen (Order) Location: None Selected Ordered By: Kristal Patel DME: Wheelchair (Order) Location: None Selected Ordered By: Kristal Patel Referrals: Vladislav Good MD [Physician] - 2 weeks Price Sullivan MD [Physician] - 2 weeks (Post hospital discharge follow up) Thompson Zuluaga MD [Primary Care Provider] - 4-7 days (Post hospital discharge follow up) Discharge Diet: Advance as tolerated and Cardiac Discharge Activity: Limit activity as instructed, Use walker/crutches as instructed, As per PT/OT instructions and Oxygen as instructed Activity Restrictions/Additional Instructions: -May shower once incisions completely free of drainage. Discontinue right hip dressing in 24-48 hours. Replaced dressings as needed. -take Tornillo for breakthrough pain. -Exercises per physical therapy. -May discontinue abduction pillow -Please note that you will now require supplemental oxygen support. Please do NOT use oxygen when in close contact with open flames as oxygen is highly combustible -Please continue smoking cessation Discharge Attestations Time Spent in Discharge Care*: greater than 30 min Specific Discharge Activities: Specific discharge activities: educating patient, discussing with pcp/other providers, discussing with family caseworker/social workers/dc planners, documenting/other paperwork and evaluating patient/reviewing data Time Spent in Smoking Cessation: Time spent discussing smoking cessation with patient: 3 to 10 minutes Details of Smoking Cessation Education: -she is highly motivated to continue smoking cessation on d/c Status at Discharge: Cognitive status at discharge: cognitively intact , Behavioral status at discharge: cooperative and independent in ADL's , Functional status at discharge: uses cane/walker Overall status at discharge: patient is progressing back to baseline Quality Metrics Clinical Quality Measures During this hospital stay, did patient experience: VTE Contraindication to Overlap Therapy: Overlap treatment not indicated VTE Discharge Education: Medication side effects education and Follow-up arranged Deep Vein Thrombosis/Pulmonary Embolism Present on Admission: Yes Coding Level of Care Code Acute Fund Controller for [facility] Fwd Exam Comprehensive Diagnoses Respiratory failure with hypoxia J96.01 Chronicity: acute DVT, bilateral lower limbs I82.403 Affected thrombotic vein of extremity: unspecified vein of extremity Chronicity: unspecified Subcapital fracture of left femur S72.012A Encounter type: initial encounter Fracture type: closed Moderate aortic stenosis I35.0 Essential (primary) hypertension I10 COPD (chronic obstructive pulmonary disease) J44.1 COPD type: COPD with acute exacerbation Paroxysmal A-fib I48.0
[2020-02-05] MEDS: budesonide 0.5 mg/2 mL Neb INHALATION (08:30)
--- NOTE | 2020-02-05 09:03 | PC.CHAP ---
Pastoral Care Encounter/Spiritual Assessment Type of Contact [] Declined ground surveillance systems operator visit [] Patient/Family/Request visit [] Outpatient visit [] Follow-up visit [] Physician referral [] Code/Alert [x Routine visit [] Staff referral [] Actively dying [] Patient sleeping [] Family support [] [] Out of room [] Palliative care [] [] Receiving care in room [] Pre-surgical visit [] Trauma [] Long length of stay [] ICU visit [] Other: Relational/Emotional Strength [] Patient feels connected with others/family/visitors/staff [] Distress [] Loneliness/isolation [] Abandonment Spirituality of Patient [x] Person of [place] [] Attends Sabianism of their [place] [] Believes in Prayer [] Reads Bible or Hoahaoism materials [] There are Spiritual issues to be addressed City Carrier Assistant Interventions [x] Prayer [x] Active listening [x] Non-anxious presence [x] Spiritual/emotional support [] Crisis/trauma care [] Spiritual counseling [] Bereavement support [] Provided bereavement packet [] Provided Bible/devotional materials [] Provided toy/stuffed animal, coloring book to patient or family member [] Provided Communion [] Anointing/[place] [] Salvation [x] Completed spiritual assessment [] Other: Impact on Illness or Injury [] Angry [] Fearful [] Anxious [] Often cries [] Exhaustion [] Unable to work [] Unable to attend latter day [] Unable to walk/stand [] Unable to read [] Unable to drive [] Unable to eat/drink [] Unable to sleep [] Unable to be with family [] Patient intubated [] Other: Summary patient hoping to go home soon.. feeling so much letter. hip a little stiff by working it out Time spent with patient 10 min
[2020-02-05] MEDS: sennosides-docusate Tablet 1 TAB PO (09:05)
[2020-02-05] MEDS: apixaban 5 mg Tablet 10 MG PO (09:05)
[2020-02-05] MEDS: famotidine 20 mg Tablet PO (09:07)
[2020-02-05] MEDS: citalopram 20 mg Tablet 10 MG PO (09:07)
[2020-02-05] MEDS: nicotine 14 mg Patch 1 PATCH TRANSDERMA (09:08)
[2020-02-05] MEDS: polyethylene glycol 3350 Pkt 17 gm PO (09:30)
--- NOTE | 2020-02-05 13:06 | PC.NURSE ---
Patient wheeled to private vehicle, oxygen on patient. friend driving. Patient again educated on d/c instructions and appointments. No further questions.
--- NOTE | 2020-02-05 13:50 | PC.NURSE ---
Appointments Called patient to notify her of appointment with Dr. Sullivan 02/14/20 at 1:45pm and Dr. Good on 02/19/20 at 0930.
== END 2020-02-05 13:06 | disposition home health service (06) | DRG 956 ==
LOC: ER 16:27 → MEDSURG 19:14 → ICU 02-02 17:27 → MEDSURG 02-02 17:27
PROVIDERS: Emergency Medicine; Hospitalist; Orthopaedic Surgery; Admitting Provider Student in an Organized Health Care Education/Training Program; PCP Family Medicine; Visit Provider Family Medicine
PROC: 0SRB0J9 Replacement of Left Hip Joint with Synthetic Substitute, Cemented, Open Approach (ICD-10-PCS; CPT 27125; principal; 2020-02-02 09:00)
DX: S72.012A Unspecified intracapsular fracture of left femur, initial encounter for closed fracture (principal); T79.1XXA Fat embolism (traumatic), initial encounter; J96.01 Acute respiratory failure with hypoxia; I82.409 Acute embolism and thrombosis of unspecified deep veins of unspecified lower extremity; I82.403 Acute embolism and thrombosis of unspecified deep veins of lower extremity, bilateral; E87.1 Hypo-osmolality and hyponatremia; J44.1 Chronic obstructive pulmonary disease with (acute) exacerbation; J98.11 Atelectasis; I50.32 Chronic diastolic (congestive) heart failure; I48.0 Paroxysmal atrial fibrillation; I35.0 Nonrheumatic aortic (valve) stenosis; Z79.82 Long term (current) use of aspirin; Z20.828 Contact with and (suspected) exposure to other viral communicable diseases; F17.210 Nicotine dependence, cigarettes, uncomplicated; I12.9 Hypertensive chronic kidney disease with stage 1 through stage 4 chronic kidney disease, or unspecified chronic kidney disease; X58.XXXA Exposure to other specified factors, initial encounter
CPT/HCPCS: 12345; 36415; 36600; 51702; 71045; 71275; 73501; 73502; 73552; 80048; 80051; 80053; 80061; 81001; 82330; 82805; 83036; 83540; 83550; 83605; 83735; 83880; 84100; 84145; 84443; 85014; 85018; 85025; 85384; 85730; 85999; 86403; 86850; 86900; 87426; 87449; 93005; 93306; 93308; 93970; 94640; 96365; 96375; 97110; 97116; 97161; 97165; 97530; 97535; 99283; C1776; J0131; J0690; J1170; J1580; J1644; J1940; J2270; J2405; J2543; J2704; J2930; J3010; J3490; J7030; J7626; Q0144; Q9967

== ENCOUNTER 2020-06-11 09:35 | Outpatient (CLI) | payer MEDICARE, SELFPAY ==
--- NOTE | 2020-06-11 10:15 | CT_ITS ---
WS: [id number] CT CHEST WITHOUT INTRAVENOUS CONTRAST HISTORY: Lung nodule TECHNIQUE: Contiguous 5 mm axial imaging performed on the thorax. Coronal and sagittal reformats are submitted. All CT scans at [facility] use at least one of these dose optimization techniq ues: automated exposure control; mA and/or kV adjustment per patient size (includes targeted exams wh ere dose is matched to clinical indication); or iterative reconstruction. CONTRAST: None DLP: 592.19 mGycm COMPARISON: 02/02/2020, 01/08/2020 and 01/25/2019 Lungs and central airway: Hyperexpanded lungs with advanced changes of emphysema. Well-circumscribed solid nodule in the posterior RIGHT upper lobe with a maximum diameter of 15 mm. This nodule was iden tified on 01/25/2019 measuring 5 mm in diameter. Slow increase in size since 01/25/2019. Additional 5 mm nodule in the LEFT upper lobe, image 16 of series 3. No additional solid nodules or masses. Thin wall cyst in the RIGHT middle lobe with adjacent scarring. Pleura: Normal. No pleural effusion. Heart and pericardium: Mildly enlarged heart. Coronary artery atherosclerosis. No effusion. Increased fat deposition along the atrial septum is probably an intra-atrial lipoma. No change. Mediastinum and marguerite: Increased soft tissue is slightly irregular and lobulated near the LEFT suprahi lar region. Without IV contrast I cannot exclude adenopathy. There are additional lymph nodes in the subcarina. Vessels: Extensive atherosclerosis of the aorta. No aneurysm. Pulmonary artery is enlarged. Chest wall and lower neck: No soft tissue masses. Upper abdomen: Suprarenal extensive atherosclerosis within the aorta. No adrenal mass. Low-attenuatio n lesions within the liver may be cysts. Cannot further evaluate without IV contrast but these are st able. Small hiatal hernia. Osseous structures: Compression deformities at T6, T7 and T9. CT/CT chest wo con [id number] IMPRESSION: 1. Slow progressive enlargement of the 15 mm solid nodule RIGHT upper lobe sin ce 01/25/2019. Suspicious for low-grade neoplasm. 2. New 5 mm nodule LEFT upper lobe. Differential includes metastatic site, jessica fanny lesion or inflammatory lesion. 3. Increased soft tissue lobulation and configuration of the LEFT suprahilar l ocation. This may be dilated normal pulmonary bronchial structures. Underlying adenopathy cannot be excluded. Consider follow-up CT of the chest with IV contr ast to evaluate better for adenopathy or change in the hilar structures. 4. Advanced atherosclerotic disease within the thoracic and suprarenal aorta.
== END 2020-06-11 09:36 | disposition home or self-care (01) ==
LOC: RADWPI 09:37
PROVIDERS: PCP Family Medicine; Visit Provider Internal Medicine Critical Care Medicine
DX: R91.1 Solitary pulmonary nodule (principal); I70.0 Atherosclerosis of aorta
CPT/HCPCS: 71250

== ENCOUNTER 2020-08-28 08:30 | Outpatient (CLI) | payer MEDICARE, SELFPAY ==
--- NOTE | 2020-08-28 09:00 | CT_ITS ---
WS: [id number] CT CHEST TECHNIQUE: Noncontrast CT of the chest with coronal and sagittal reformatted images. CLINICAL INFORMATION: Lung Nodule COMPARISON: None. DLP: 580.[address] scans at [facility] use at least one of these dose optimization techniques: automat ed exposure control; mA and/or kV adjustment per patient size (includes targeted exams where dose is matched to clinical indication); or iterative reconstruction. FINDINGS: Noncalcified nodule posterior right upper lobe measuring 12.9 x 14.5 x 13 mm not significantly change d since June 11, 2020. Consider further evaluation with PET/CT. Findings suspicious for neoplasm. 5 mm nodule left upper lobe is unchanged. Mild soft tissue thickening or lymph node about the left supr a hilum is unchanged from the prior examination. Moderate to advanced chronic emphysematous changes. A few scattered areas of fibrosis. No focal conso lidation or pleural fluid. Calcified hilar nodes. Dense aortic calcification. Coronary calcification. Adrenal glands are normal. Small esophageal hiatal hernia. Splenic granulomas. Chronic compression d eformities T6, T7, and T9. CT/CT chest wo con [id number] IMPRESSION: 1. Noncalcified nodule posterior right upper lobe measuring 12.9 x 14.5 x 13 m m not significantly changed since June 11, 2020. Consider further evaluation w ith PET/CT. Findings suspicious for neoplasm. 2. 5 mm nodule left upper lobe is unchanged. 3. Mild soft tissue thickening or lymph node about the left supra hilum is unc hanged from the prior examination. 4. Otherwise no mediastinal or hilar lymphadenopathy. 5. Dense aortic arch calcification unchanged.
== END 2020-08-28 08:31 | disposition home or self-care (01) ==
LOC: RADWPI 08:36
PROVIDERS: PCP Family Medicine; Visit Provider Internal Medicine Critical Care Medicine
DX: R91.1 Solitary pulmonary nodule (principal); I70.0 Atherosclerosis of aorta
CPT/HCPCS: 71250

== ENCOUNTER 2020-11-12 09:38 | Outpatient (CLI) | payer MEDICARE, SELFPAY ==
--- NOTE | 2020-11-12 10:52 | N.ONRAD NP_ITS ---
Radiation Oncology Consultation Patient Name: Lisset Murphy Date of : 1950 Date of Service: 11/12/2020 Attending Physician: Sj Palm M.D. Lisset Murphy was seen in consultation this morning at the request of Eliseo Sullivan M.D. for consideration of stereotactic ablative body radiotherapy in the management of her recently diagnosed lung cancer. She was initially identified to have a solitary pulmonary nodule in January 2019. Serial imaging has demonstrated a slowly progressing lesion in the posterior aspect of the right upper lobe of the lung. A thoracic CT ordered on August 28, 2020 demonstrated the right upper lobe nodule measuring 1.5 cm and a 5 mm left upper lobe nodule that was unchanged from the previous imaging in June. A PET CT obtained on October 30, 2020 (independently visualized in [facility]) confirmed hypermetabolic activity within the previously described right upper lobe lesion (SUV 8.9) without evidence of lymphadenopathy nor metastatic disease. Also described was a 1.6 cm x 1.7 cm right parotid density (SUV 12.1). The patient was evaluated for SABR. I discussed with Ms. Murphy the AJCC clinical stage IA2 (T1bN0) lung cancer corresponding to her disease. She is aware that the National Comprehensive Cancer Network Guidelines recommend surgical resection in operable patients. However, for patients deemed medically inoperable without lymphadenopathy, stereotactic radiotherapy is preferable. I reviewed the RTOG 0236 phase II trial that enrolled non-small cell lung cancer patients with peripheral T1 and T2 and medical conditions precluding surgical treatment to SABR. The 3-year primary tumor local control of 97% with an overall median survival of 48 months. I also discussed the SPACE trial that randomized stage I non-small cell lung cancer patients to SABR or conventional fractionated radiotherapy. Progression free survival was improved and a significant decrement in adverse events were documented in the SABR treatment arm. I would endorse an ultra-hypofractionated course of stereotactic radiotherapy. I will order pulmonary function testing and refer her to otolaryngology for evaluation of the parotid mass. A 4-dimensional computed tomographic will be acquired for radiotherapy planning to delineate the gross tumor volume. The potential toxicities of stereotactic body radiotherapy to the lung were reviewed. The patient has verbalized understanding and would like to proceed as recommended. The patient's medical treatment plan was discussed with Eliseo Sullivan M.D. Signed by: Dr. Sj Palm 11/12/2020 10:51:12 AM
== END 2020-11-12 09:39 | disposition home or self-care (01) ==
LOC: ONCMED 09:45
PROVIDERS: PCP Family Medicine; Visit Provider Radiology Radiation Oncology
DX: C34.11 Malignant neoplasm of upper lobe, right bronchus or lung (principal); C79.89 Secondary malignant neoplasm of other specified sites; Z79.899 Other long term (current) drug therapy
CPT/HCPCS: 99205

== ENCOUNTER → 2020-11-26 09:39 | Outpatient (BNVA) | payer MEDICARE, SELFPAY | PROVIDERS: PCP Family Medicine; Visit Provider Internal Medicine Medical Oncology | DX: Z01.812 Encounter for preprocedural laboratory examination (principal); Z20.822 Contact with and (suspected) exposure to COVID-19 | CPT/HCPCS: 87635 ==

== ENCOUNTER 2020-12-02 09:40 | Outpatient (CLI) | payer MEDICARE, SELFPAY ==
--- NOTE | 2020-12-02 16:05 | PFTS_ITS ---
Date of Study:12/02/20 Date of Dictation: MECHANICS: Forced vital capacity (FVC) is reduced. Forced expiratory volume in one second (FEV1) is reduced. FEV1/FVC is reduced. FLOW VOLUME LOOP: Reduced flow at all lung volumes with scooping. LUNG VOLUMES: Total lung capacity (TLC) is normal. Residual volume (RV) is increased. DIFFUSING CAPACITY FOR CARBON MONOXIDE: Moderately reduced. INTERPRETATION: The pulmonary function tests are consistent with moderate airflow obstruction. There is no significant postbronchodilator response. Lung volumes are consistent with air trapping. Gas exchange (DLCO) is moderately reduced. MTDD
== END 2020-12-02 09:41 | disposition home or self-care (01) ==
LOC: RT 09:47
PROVIDERS: PCP Family Medicine; Visit Provider Radiology Radiation Oncology
DX: R91.8 Other nonspecific abnormal finding of lung field (principal)
CPT/HCPCS: 94060; 94726; 94729; J7611

== ENCOUNTER 2020-12-12 08:41 | Outpatient (CLI) | payer MEDICARE, SELFPAY ==
--- NOTE | 2020-12-12 09:30 | ONCRAD EPV_ITS ---
Radiation Oncology Follow-Up Note Patient Name: Lisset Murphy Date of : 1950 Date of Service: 12/12/2020 Attending Physician: Sj Palm M.D. Lisset Murphy returned to my office this morning to discuss the results of pulmonary function testing. She was initially identified to have a solitary pulmonary nodule in January 2019. Serial imaging has demonstrated a slowly progressing lesion in the posterior aspect of the right upper lobe of the lung. A thoracic CT ordered on August 28, 2020 demonstrated the right upper lobe nodule measuring 1.5 cm and a 5 mm left upper lobe nodule that was unchanged from the previous imaging in June. A PET CT obtained on October 30, 2020 confirmed hypermetabolic activity within the previously described right upper lobe lesion (SUV 8.9) without evidence of lymphadenopathy nor metastatic disease. Also described was a 1.6 cm x 1.7 cm right parotid density (SUV 12.1). PFTs revealed an FVC of 2.61 L (75% of predicted), FEV1 of 1.41 L (53% of predicted) and a DLCO of 11.2 ml/min/mmHg (36% of predicted). In summary, Ms. Murphy returned for a routine follow-up appointment to review recent testing results. PFTs are adequate for radiotherapy. She will be scheduled for SABR. Signed by: Dr. Sj Palm 12/12/2020 9:29:01 AM
== END 2020-12-12 08:42 | disposition home or self-care (01) ==
LOC: ONCMED 08:45
PROVIDERS: PCP Family Medicine; Visit Provider Radiology Radiation Oncology
DX: C34.11 Malignant neoplasm of upper lobe, right bronchus or lung (principal); Z79.899 Other long term (current) drug therapy
CPT/HCPCS: 99024

== ENCOUNTER 2020-12-26 06:36 | Outpatient (RCR) | payer MEDICARE, SELFPAY ==
--- NOTE | 2020-12-17 | CT_ITS ---
Radiation Therapy Planning CT images; total exam DLP: 661.47 mGy-cm MTDD
--- NOTE | 2020-12-24 15:51 | ONCRAD TMN_ITS ---
Stereotactic Ablative Radiotherapy Treatment Management Note Patient Name: Lisset Murphy Date of : 1950 Date of Service: 12/24/2020 Attending Physician: Sj Palm M.D. Lisset Murphy is a 70 year-old white female diagnosed with a clinical stage IA2 (T1bN0) lung cancer She was initially identified to have a solitary pulmonary nodule in January 2019. Serial imaging has demonstrated a slowly progressing lesion in the posterior aspect of the right upper lobe of the lung. A PET CT obtained on October 30, 2020 confirmed hypermetabolic activity within the previously described right upper lobe lesion (SUV 8.9) without evidence of lymphadenopathy nor metastatic disease. The patient has received 36 Gy of a prescribed 54 Thomas (SABR) delivered with an intensity modulated radiotherapy plan utilizing a step and shoot treatment technique. Upon review of systems, she denied any changes in her pulmonary function. On physical examination, the patient weighed 138 lbs. His temperature was 97.7 ???F with a blood pressure of 176/91 mmHg. The pulse was 86 bpm and her respiratory rate was 20. Oxygen saturation while breathing room air was 94%. There was no erythema within the treatment bonds. Continue stereotactic ablative body radiotherapy as prescribed. Signed by: Dr. Sj Palm 12/24/2020 3:49:42 PM
--- NOTE | 2020-12-26 10:51 | N.ONRD TS_ITS ---
Stereotactic Body Radiotherapy Treatment Summary Patient Name: Lisset Murphy Date of : 1950 Date of Service: 12/26/2020 Attending Physician: Sj Palm M.D. Lisset Murphy has completed stereotactic ablative body radiotherapy for the management of a clinical stage IA2 (T1bN0) lung cancer She was initially identified to have a solitary pulmonary nodule in January 2019. Serial imaging has demonstrated a slowly progressing lesion in the posterior aspect of the right upper lobe of the lung. A PET CT obtained on October 30, 2020 confirmed hypermetabolic activity within the previously described right upper lobe lesion (SUV 8.9) without evidence of lymphadenopathy nor metastatic disease. SABR was delivered between the dates of December 22, 2020 through December 26, 2020. A prescribed dose of 54 Gy was delivered in three fractions encompassing 5 elapsed days. The right upper lobe lesion was treated utilizing an intensity modulated radiotherapy plan with a step and shoot treatment technique. The plan required six gantry angles (135???, 150???, 198???, 220???, 240???, and 290???, with a collimator rotation of 0??? in a partial arc design. The field sizes measured between 4.8 cm x 4.5 cm to 5 cm x 5 cm. The SSDs measured a minimum of 88.3 cm to a maximum of 96.3 cm. The ports delivered 1113 MU, 634 MU, 812 MU, 1012 MU, 703 MU, and 1183 MU corresponding to the gantry angles described. Low energy photons were prescribed. All treatments were performed with the M2G linear accelerator and an isocentric technique. The dose was calculated by Anisotropic Analytic Algorithm with the plan normalized to deliver 100% of the prescription dose to 95% of the planning target volume. Signed by: Dr. Sj Palm 12/26/2020 10:49:57 AM
== END 2021-01-01 23:59 | disposition home or self-care (01) ==
LOC: ONCMED 06:36
PROVIDERS: PCP Family Medicine; Visit Provider Radiology Radiation Oncology
DX: Z51.0 Encounter for antineoplastic radiation therapy (principal); C34.11 Malignant neoplasm of upper lobe, right bronchus or lung; Z79.899 Other long term (current) drug therapy
CPT/HCPCS: 77300; 77301; 77334; 77336; 77338; 77373; 77470

== ENCOUNTER 2021-01-23 09:33 | Outpatient (RCR) | payer MEDICARE, SELFPAY ==
--- NOTE | 2021-01-23 10:08 | ONCRAD EPV_ITS ---
Radiation Oncology Follow-Up Note Patient Name: Lisset Murphy Date of : 1950 Date of Service: 01/23/2021 Attending Physician: Sj Palm M.D. Lisset Murphy returned to my office this morning for a routinely scheduled follow-up appointment. She completed stereotactic ablative body radiotherapy in December for the management of a clinical stage IA2 (T1bN0) lung cancer She was initially identified to have a solitary pulmonary nodule in January 2019. Serial imaging has demonstrated a slowly progressing lesion in the posterior aspect of the right upper lobe of the lung. A PET CT obtained on October 30, 2020 confirmed hypermetabolic activity within the previously described right upper lobe lesion (SUV 8.9) without evidence of lymphadenopathy nor metastatic disease. SABR was delivered between the dates of December 22, 2020 through December 26, 2020. A prescribed dose of 54 Gy was delivered in three fractions encompassing 5 elapsed days. On review of systems, she denied any new pulmonary complaints. On physical examination, she weighed 140 lbs. The temperature was 97.9???F and her blood pressure was 154/81 mmHg. The pulse was 77 bpm and her respiratory rate was 20 breaths per minute. Oxygen saturation while breathing room air was 95 %. Bronchial breath sounds were auscultated. In summary, Ms. Murphy returned for a routine post-radiotherapy follow-up. She will be scheduled for CT imaging to assess treatment response consistent with NCCN Guidelines. Signed by: Dr. Sj Palm 01/23/2021 10:07:54 AM
== END 2021-02-01 23:59 | disposition home or self-care (01) ==
LOC: ONCMED 09:33
PROVIDERS: PCP Family Medicine; Visit Provider Radiology Radiation Oncology
DX: Z08 Encounter for follow-up examination after completed treatment for malignant neoplasm (principal); Z85.118 Personal history of other malignant neoplasm of bronchus and lung; Z92.3 Personal history of irradiation
CPT/HCPCS: 99024

== ENCOUNTER 2021-03-09 09:51 | Outpatient (CLI) | payer MEDICARE, SELFPAY ==
--- NOTE | 2021-03-09 | CT_ITS ---
WS: [id number] CT CHEST TECHNIQUE: Noncontrast and Contrast enhanced CT of the chest with coronal and sagittal reformatted im ages. CLINICAL INFORMATION: LUNG NEOPLASM COMPARISON: CT August 28, 2020 and PET/CT October 30, 2020 DLP: 1209.[address] scans at [facility] use at least one of these dose optimization techniques: automated e xposure control; mA and/or kV adjustment per patient size (includes targeted exams where dose is matc hed to clinical indication); or iterative reconstruction. FINDINGS: Advanced chronic emphysematous changes. 5 mm noncalcified nodule left upper lobe is unchanged. Interv al decrease in size of the right upper lobe pulmonary nodule today measuring 0.6 x 1.0 cm compared to previous studies measuring approximately 1.3 x 1.5 CM significantly improved. Stable mild soft tissue thickening or lymphadenopathy about the left hilum is unchanged. Otherwise no mediastinal or hilar lymphadenopathy. Distal aortic calcification. Moderate to advanced chronic emph ysematous changes. No acute pulmonary infiltrates. Calcified hilar nodes. Coronary calcification. Small esophageal hiatal hernia. Incidental hepatic cys ts. Stable chronic compression deformities in the thoracic spine at T6, T7, and T9. CT/CT chest wo/w con [id number] IMPRESSION: 1. Significant interval improvement in the right upper lobe pulmonary neoplasm today measuring 0.6 x 1.0 cm compared to 1.3 x 1.5 cm on the prior PET/CT and chest CT. 2. No other significant changes compared to previous. 3. Stable 5 mm noncalcified nodule left upper lobe.
[2021-03-09] MEDS: iohexol 300 mg/mL 100 mL Btl IV (12:21)
== END 2021-03-09 09:52 | disposition home or self-care (01) ==
PROVIDERS: PCP Family Medicine; Visit Provider Radiology Radiation Oncology
DX: C34.10 Malignant neoplasm of upper lobe, unspecified bronchus or lung (principal); R91.1 Solitary pulmonary nodule
CPT/HCPCS: 71270; Q9967

== ENCOUNTER 2021-03-13 09:43 | Outpatient (CLI) | payer MEDICARE, SELFPAY ==
--- NOTE | 2021-03-13 10:13 | ONCRAD EPV_ITS ---
Radiation Oncology Follow-Up Note Patient Name: Lisset Murphy Date of : 1950 Date of Service: 03/13/2021 Attending Physician: Sj Palm M.D. Lisset Murphy returned to my office this morning for a routinely scheduled follow-up appointment. She completed stereotactic ablative body radiotherapy in December for the management of a clinical stage IA2 (T1bN0) lung cancer She was initially identified to have a solitary pulmonary nodule in January 2019. Serial imaging has demonstrated a slowly progressing lesion in the posterior aspect of the right upper-lobe of the lung. A PET CT obtained on October 30, 2020 confirmed hypermetabolic activity within the previously described right upper lobe lesion (SUV 8.9) without evidence of lymphadenopathy nor metastatic disease. SABR was delivered between the dates of December 22, 2020 through December 26, 2020. A prescribed dose of 54 Gy was delivered in three fractions encompassing [address] of the thorax ordered on March 09, 2021 described a decrease in size of the right upper- lobe nodule. The nodule measured 0.6 cm x 1 cm. It previously measured 1.3 cm x 1.5 cm. On review of systems, she reported increased dyspnea on windy days. On physical examination, she weighed 142 lbs. The temperature was 97.8???F. Her blood pressure was 154/74 mmHg. The pulse was 78 bpm and her respiratory rate was 20 breaths per minute. The oxygen saturation while breathing ambient air was 94%. There were no significant pulmonary changes. In summary, Ms. Murphy returned for a routine post-SABR follow-up. Recent imaging demonstrated a partial response to treatment according to RECIST 1.1. She will continue follow-up according to NCCN Guidelines. Signed by: Dr. Sj Palm 03/13/2021 10:11:27 AM
== END 2021-03-13 09:44 | disposition home or self-care (01) ==
LOC: ONCMED 09:45
PROVIDERS: PCP Family Medicine; Visit Provider Radiology Radiation Oncology
DX: C34.11 Malignant neoplasm of upper lobe, right bronchus or lung (principal); R06.00 Dyspnea, unspecified; Z92.3 Personal history of irradiation
CPT/HCPCS: 99215

== ENCOUNTER 2021-06-11 08:33 | Outpatient (CLI) | payer MEDICARE, SELFPAY ==
--- NOTE | 2021-06-11 08:44 | CT_ITS ---
WS: [id number] CT CHEST TECHNIQUE: Contrast enhanced CT of the chest with coronal and sagittal reformatted images. CLINICAL INFORMATION: LUNG CANCER COMPARISON: CT chest March 09, 2021. PET/CT October 30, 2020. Chest CT August 28, 2020. DLP: 671.[address] scans at [facility] use at least one of these dose optimization techniques: automated e xposure control; mA and/or kV adjustment per patient size (includes targeted exams where dose is matc hed to clinical indication); or iterative reconstruction. FINDINGS: Advanced chronic emphysematous changes. 5 mm nodule LEFT upper lobe is stable. RIGHT upper lobe pulmo nary nodule has decreased in size today measuring 5 x 9 mm compared to 6 x 10 mm previous. No mediast inal or hilar lymphadenopathy. Aortic calcification. No acute pulmonary infiltrates. Coronary calcifi cation. Small esophageal hiatal hernia. Incidental hepatic cysts. Stable chronic compression deformities in the thoracic spine at T6, T7, and T9. CT/CT chest w con* [id number] IMPRESSION: 1. Interval improvement in the RIGHT upper lobe pulmonary neoplasm today measu ring 5 x 9 mm compared to 6 x 10 mm previous. 2. No mediastinal or hilar lymphadenopathy. 3. No other significant changes compared to previous. 4. Stable 5 mm nodule LEFT upper lobe.
[2021-06-11 09:12] LABS: Blood Urea Nitrogen 9 mg/dL (8-23); Glomerular Filtration Rate 70.9 mL/min (90-130)
[2021-06-11] MEDS: iohexol 300 mg/mL 100 mL Btl IV (09:16)
== END 2021-06-11 08:34 | disposition home or self-care (01) ==
PROVIDERS: PCP Family Medicine; Visit Provider Radiology Radiation Oncology
DX: C34.10 Malignant neoplasm of upper lobe, unspecified bronchus or lung (principal); R91.1 Solitary pulmonary nodule
CPT/HCPCS: 71260; 82565; 84520

== ENCOUNTER 2021-06-14 09:40 | Emergency (ER) | payer MEDICARE, SELFPAY ==
[2021-06-14] VITALS (8 sets, daily range): BP systolic 137–165; BP diastolic 65–114; PULSE 60–90; RESP 18–24; TEMP 36.5–36.8; O2SAT 85–91; BMI 20.9
--- NOTE | 2021-06-14 09:43 | XRR_ITS ---
PROCEDURE INFORMATION: Exam: XR Chest Exam date and time: 06/14/2021 9:43 AM Age: 71 years old Clinical indication: Shortness of breath; Additional info: Short of breath, chest heaviness TECHNIQUE: Imaging protocol: XR of the chest. Views: 1 view. COMPARISON: CT chest w con* [id number] 06/11/2021 9:12 AM FINDINGS: Lungs: Background of emphysema. No focal airspace disease. Pleural spaces: Unremarkable. No pleural effusion. No pneumothorax. Heart/Mediastinum: Cardiomediastinal silhouette is within normal limits. Bones/joints: Unremarkable. XR/XR chest 1V portable [id number] IMPRESSION: No acute cardiopulmonary abnormality.
--- NOTE | 2021-06-14 10:02 | ECG_ITS ---
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 Measurements Intervals [place] Rate: 100 P: DC: QRS: 73 QRSD: 82 T: 82 QT: 380 QTc: 491 Interpretive Statements SINUS TACHYCARDIA SEPTAL MYOCARDIAL INFARCTION , PROBABLY OLD [40+ ms Q WAVE IN V1/V2] Compared to ECG 02/01/2020 16:01:11 Myocardial infarct finding still present Electronically Signed On 06-14-2021 15:39:46 CDT by Octaviano Castro M.D. [id number]
--- NOTE | 2021-06-14 10:04 | W.ED.SOB ---
HPI - SOB/Dyspnea General: Chief Complaint: Shortness of Breath/Dyspnea Stated Complaint: chest heaviness; yellow sputum; SOB Time Seen by Provider: 06/14/21 09:52 Source: patient Mode of arrival: ambulatory Limitations: no limitations History of Present Illness: HPI Narrative: 71-year-old female has a history of lung cancer who had radiation therapy last year she has a history of asthma and COPD states that over the last 3 to 4 days she been having increasing shortness of breath with it being much worse this morning. She does not wear oxygen at home oxygen saturation here is 85% on room air. She has had a cough with yellow sputum denies any fevers denies any worsening improving factors. She had a CAT scan 3 days ago that was done showed no signs of pulmonary embolism or pneumonia Associated symptoms: Deny abdominal pain, chest pain, fever(s), nausea or vomiting Review of Systems Const: Denies: fever(s), chills, body aches or change in appetite Eyes: Denies: blurry vision or eye discomfort ENMT: Denies: throat pain or dental pain Card: Denies: chest pain Resp: Reports: dyspnea and non-productive cough GI: Denies: abdominal pain, nausea, vomiting or diarrhea : Denies: dysuria Musc: Denies: neck pain or back pain Skin/Breast: Denies: rash Neuro: Denies: headache(s) Psych: Denies: depression Bernard/Lymph: Denies: easy bruising All/Imm: Denies: urticaria PFSH ED PFSH: Medical History (Updated 06/14/21 @ 11:13 by Citlali Parker MD) Allergic rhinitis Asthma Chronic obstructive pulmonary disease COPD (chronic obstructive pulmonary disease) DVT (deep venous thrombosis) Essential (primary) hypertension -VSS; continue to monitor -continue oral antihypertensives Hypoxia Moderate aortic stenosis -Noted moderate on echo; also noted to have EF=65%, no RWMA, G1DD, moderate pulmonary HTN, mild-moderate TR Nicotine addiction Paroxysmal A-fib -telemetry monitoring; rate controlled -continue cardizem -ASA on hold as on heparin drip; was not on other AC previously Pulmonary nodule Subcapital fracture of left femur -secondary to mechanical fall -s/p bipolar arthroplasty by Dr. Good; POD # 3 -EBL-100 mL -PT/OT evaluations appreciated -strict fall precautions, pain control as needed -bowel regimen -Sherman catheter removed Surgical History H/O tubal ligation Family History Father CAD (coronary artery disease) Mother Cancer Social History Quit status (tobacco): considering quitting Smoking risk assessment/counseling performed?: Yes Alcohol intake: never Counseling given: No Counseling given: No Lives independently: Yes Household members: none Marital status: Current occupational status: retired History of recent travel: No Current gender identity: Female Physical Exam Const: COMMON NORMALS: patient oriented x3 and healthy appearing GENERAL APPEARANCE: in distress and ill appearing HENMT: COMMON NORMALS: normocephalic and atraumatic HEAD & SCALP: normocephalic and atraumatic Eye: COMMON NORMALS: Equal, round and reactive pupils present and EOMs intact bilaterally PUPIL: Yes Equal, round and reactive pupils present Neck/C-Spine: COMMON NORMALS: full ROM and supple Chest: COMMONS NORMALS: normal inspection of the chest and normal palpation of entire chest wall Resp: COMMON NORMALS: No retractions and No use of accessory muscles EFFORT & INSPECTION: Yes tachypneic AUSCULTATION: wheezes and diminished lung sounds Cardio: COMMON NORMALS: regular rate, regular rhythm and No murmurs present (Cardio) RATE: regular rate RHYTHM: regular rhythm GI: COMMON NORMALS: Normal to inspection, nondistended, normoactive bowel sounds present, Soft to palpation, non-tender and no masses PALPATION: Yes Soft to palpation Extremity: COMMON NORMALS: normal to inspection and full ROM Neuro: COMMON NORMALS: patient oriented x3, moves all extremities and no focal motor deficits Psych: COMMON NORMALS: mental status grossly normal, Normal thought process present and cooperative THOUGHT PROCESS: Normal thought process present Skin: COMMON NORMALS: no rashes or lesions noted and no wounds GENERAL SKIN EXAM: no rashes or lesions noted Course Vital Signs: Vital signs: Vital Signs Temperature 98 F 06/14/21 09:58 Pulse Rate 88 06/14/21 10:58 Respiratory Rate 18 06/14/21 10:58 Blood Pressure 140/71 06/14/21 10:58 Pulse Oximetry 86 L 06/14/21 11:26 MDM - SOB/Dyspnea Medical Decision Making Patient presents for shortness of breath likely from her lung cancer and from asthma exacerbation she feels much improved here on oxygen and after breathing treatment I recommended admission as she is still requiring 3 L of oxygen. States she feels improved and does not want to stay in the hospital at this time. She had a CT scan done just 3 days ago showed no signs of pulmonary embolism or pneumonia and do not believe she needs a repeat at this time. She has no chest pain. Did home oxygen evaluation we will start her on on 3 L of home oxygen she is to follow-up with PCP in 3 to 5 days return to ER if worsening she understands agrees to plan. Lab Data : 06/14/21 10:15 06/14/21 10:15 Labs/Radiology: Radiology Impressions Chest X-Ray 06/14/21 09:43 IMPRESSION: No acute cardiopulmonary abnormality. Laboratory Results WBC 12.6 10^3/uL (4.0-10.0) H 06/14/21 10:15 RBC 4.72 10^6/uL (4.1-5.3) 06/14/21 10:15 Hgb 13.6 g/dL (11.5-15.3) 06/14/21 10:15 Hct 41.3 % (37.0-47.0) 06/14/21 10:15 MCV 87.5 fl (81-99) 06/14/21 10:15 MCH 28.8 pg (28.0-34.0) 06/14/21 10:15 MCHC 32.9 g/dL (30.0-36.0) 06/14/21 10:15 RDW 13.5 % (12.1-15.1) 06/14/21 10:15 Plt Count 177 10^3/cmm (130-400) 06/14/21 10:15 MPV 10.3 fL (7.4-10.4) 06/14/21 10:15 Neut % (Auto) 85.9 % 06/14/21 10:15 Lymph % (Auto) 3.7 % 06/14/21 10:15 [place] % (Auto) 9.2 % 06/14/21 10:15 Eos % (Auto) 0.6 % 06/14/21 10:15 Baso % (Auto) 0.4 % 06/14/21 10:15 Neut # (Auto) 10.80 10^3/uL (1.8-7.7) H 06/14/21 10:15 Lymph # (Auto) 0.5 10^3/uL (0.8-4.8) L 06/14/21 10:15 [place] # (Auto) 1.2 10^3/uL (0.2-0.9) H 06/14/21 10:15 Eos # (Auto) 0.1 10^3/uL (0.0-0.8) 06/14/21 10:15 Baso # (Auto) 0.1 10^3/uL (0.0-0.1) 06/14/21 10:15 Nucleated RBC % (auto) 0 % 06/14/21 10:15 Nucleated RBCs # 0.0 /100WBC 06/14/21 10:15 Specimen Type Arterial 06/14/21 10:24 Sample Site Brachial, right 06/14/21 10:24 ABG pH 7.50 (7.35-7.45) H 06/14/21 10:24 ABG pCO2 30.0 mmHg (35-45) L 06/14/21 10:24 ABG pO2 46.9 mmHg (80.0-100.0) L 06/14/21 10:24 ABG HCO3 23.6 mmol/L (22-26) 06/14/21 10:24 ABG Base Excess 1.3 mmol/L (-2.0-2.0) 06/14/21 10:24 Duncan Test N/a 06/14/21 10:24 Hematocrit 40.7 % (37-47) 06/14/21 10:24 Hgb O2 Saturation 84.8 % (95-100) L 06/14/21 10:24 Carboxyhemoglobin 2.4 %THgb (0.4-20.1) 06/14/21 10:24 Methemoglobin 0.8 % (0.4-1.5) 06/14/21 10:24 Total Hemoglobin 13.3 g/dL (12-16) 06/14/21 10:24 O2 Delivery Device Nc 06/14/21 10:24 O2 Liters/Min 2.0 % 06/14/21 10:24 FiO2 28.0 % 06/14/21 10:24 Kettle Cook ID Amh 06/14/21 10:24 Sodium 130 mmol/L (136-145) L 06/14/21 10:15 Potassium 3.2 mmol/L (3.5-5.1) L 06/14/21 10:15 Chloride 95 mmol/L (98-107) L 06/14/21 10:15 Carbon Dioxide 23 mmol/L (22-29) 06/14/21 10:15 Anion Gap 15.2 (5-19) 06/14/21 10:15 BUN 8 mg/dL (8-23) 06/14/21 10:15 Creatinine 0.5 mg/dL (0.5-0.9) 06/14/21 10:15 GFR Calculation 122.0 mL/min (90-130) 06/14/21 10:15 Glucose 101 mg/dL (65-115) 06/14/21 10:15 Calculated Osmolality 268 mOsm/kg (285-295) L 06/14/21 10:15 Calcium 8.6 mg/dL (8.5-10.5) 06/14/21 10:15 Total Bilirubin 0.7 mg/dL (0.15-1.2) 06/14/21 10:15 AST 12 U/L (0-32) 06/14/21 10:15 ALT 10 U/L (0-33) 06/14/21 10:15 Alkaline Phosphatase 117 IU/L (35-105) H 06/14/21 10:15 NT-Pro-B Natriuret Pep 753 pg/mL (0-125) H 06/14/21 10:15 Total Protein 7.2 g/dL (6.6-8.7) 06/14/21 10:15 Albumin 4.2 g/dL (3.5-5.2) 06/14/21 10:15 Globulin 3.0 g/dL (1.3-4.6) 06/14/21 10:15 Influenza Type A Ag Negative (Negative) 06/14/21 10:15 Influenza Type B Ag Negative (Negative) 06/14/21 10:15 SARS-CoV-2 Ag (Rapid) Cancelled 06/14/21 10:15 Discharge Plan Discharge Patient Disposition: Home Clinical Impression: Asthma with exacerbation Condition: Stable Prescriptions: New prednisone 50 mg tablet 50 mg PO DAILY Qty: 5 0RF No Action diltiazem HCl 60 mg capsule,extended release 12 hr 120 mg PO DAILY 0RF albuterol sulfate [ProAir HFA] 90 mcg/actuation HFA aerosol inhaler 2 puff INHALATION Q6H PRN (Reason: Shortness Of Breath) 0RF Trelegy Ellipta 100-62.5-25 mcg blister with device 1 inh INHALATION DAILY 90 Days Qty: 180 3RF Eliquis 2.5 mg tablet See Rx Instructions .ROUTE .COMPLEX Qty: 60 3RF Dose Instruction: TAKE 1 TABLET BY MOUTH TWO TIMES A DAY Rx Instructions: TAKE 1 TABLET BY MOUTH TWO TIMES A DAY prednisone 5 mg tablet 5 mg PO DAILY 90 Days Qty: 90 2RF fluticasone propionate 50 mcg/actuation spray,suspension See Rx Instructions .ROUTE .COMPLEX Qty: 16 3RF Dose Instruction: PLACE 1 SPRAY IN EACH NOSTRIL EVERY 12 HOURS Rx Instructions: PLACE 1 SPRAY IN EACH NOSTRIL EVERY 12 HOURS albuterol sulfate 2.5 mg /3 mL (0.083 %) solution for nebulization 2.5 mg inhalation Q6H PRN (Reason: bronchospasm) Qty: 180 5RF furosemide 20 mg tablet 20 mg PO DAILY 0RF Discharge Orders: Discharge ED (Routine); Ordered 06/14/21 Ordered By: Citlali Parker Other Ambulatory Orders: DME: Oxygen (Order) Location: None Selected Ordered By: Citlali Parker Referrals: Thompson Zuluaga MD [Primary Care Provider] - 1-3 days Discharge Diet: Advance as tolerated Discharge Activity: Resume usual activity Patient Instructions: Dyspnea (ED) Coding Level of Care Code ED Quality Management Nurse for Chg Fwd Exam Comprehensive
[2021-06-14] MEDS: ipratropium-albuterol 3 mL Neb INHALATION (10:23)
[2021-06-14 10:26] LABS: Basophils # 0.1 10^3/uL (0.0-0.1); Basophils % 0.4 %; Eosinophils # 0.1 10^3/uL (0.0-0.8); Eosinophils % 0.6 %; Hematocrit 41.3 % (37.0-47.0); Hemoglobin 13.6 g/dL (11.5-15.3); Lymphocytes # 0.5 10^3/uL (0.8-4.8); Lymphocytes % 3.7 %; Mean Corpuscular HGB Conc 32.9 g/dL (30.0-36.0); Mean Corpuscular Hemoglobin 28.8 pg (28.0-34.0); Mean Corpuscular Volume 87.5 fl (81-99); Mean Platelet Volume 10.3 fL (7.4-10.4); Monocytes # 1.2 10^3/uL (0.2-0.9); Monocytes % 9.2 %; Neutrophils % 85.9 %; Nucleated Red Blood Cells % 0 %; Platelet Count 177 10^3/cmm (130-400); Red Blood Count 4.72 10^6/uL (4.1-5.3); Red Cell Distribution Width 13.5 % (12.1-15.1); White Blood Count 12.6 10^3/uL (4.0-10.0)
[2021-06-14 10:35] LABS: Arterial Blood Gas Hematocrit 40.7 % (37-47); Base Excess ABG 1.3 mmol/L (-2.0-2.0); Blood Gas Operator Identificat AMH; Blood Gas Sample Site Brachial, right; Blood Gas Sample Type Arterial; Carboxyhemoglobin 2.4 %THgb (0.4-20.1); HCO3 ABG 23.6 mmol/L (22-26); HGB O2 Sat 84.8 % (95-100); Methemoglobin 0.8 % (0.4-1.5); Oxygen Device NC; PO2 ABG 46.9 mmHg (80.0-100.0); Total Hemoglobin 13.3 g/dL (12-16)
[2021-06-14 10:52] LABS: Influenza A by IFA Negative (Negative); Influenza B by IFA Negative (Negative)
[2021-06-14 10:59] LABS: Alanine Aminotransferase 10 U/L (0-33); Albumin Level 4.2 g/dL (3.5-5.2); Alkaline Phosphatase 117 IU/L (35-105); Anion Gap 15.2 (5-19); Aspartate Amino Transferase 12 U/L (0-32); Blood Urea Nitrogen 8 mg/dL (8-23); Calcium 8.6 mg/dL (8.5-10.5); Carbon Dioxide 23 mmol/L (22-29); Chloride 95 mmol/L (98-107); Glucose 101 mg/dL (65-115); NT Pro B Type Natriuretic Pept 753 pg/mL (0-125); Osmolality Calculated 268 mOsm/kg (285-295); Potassium 3.2 mmol/L (3.5-5.1); Sodium 130 mmol/L (136-145); Total Bilirubin 0.7 mg/dL (0.15-1.2); Total Protein 7.2 g/dL (6.6-8.7)
[2021-06-14 12:12] LABS: Adenovirus Not Detected (NOT DETECT); Chlamydia Pneumoniae Not Detected (NOT DETECT); Coronavirus 229E,HKU1,NL63,OC4 Not Detected (NOT DETECT); Human Metapneumovirus Not Detected (NOT DETECT); Human Rhinovirus/Enterovirus Not Detected (NOT DETECT); Influenza A Not Detected (NOT DETECT); Influenza A H1 Not Detected (NOT DETECT); Influenza A H1-2009 Not Detected (NOT DETECT); Influenza A H3 Not Detected (NOT DETECT); Influenza B Not Detected (NOT DETECT); Mycoplasma Pneumoniae Not Detected (NOT DETECT); Parainfluenza Virus Type 1 Not Detected (NOT DETECT); Parainfluenza Virus Type 2 Not Detected (NOT DETECT); Parainfluenza Virus Type 3 Not Detected (NOT DETECT); Parainfluenza Virus Type 4 Not Detected (NOT DETECT); Respiratory Syncytial Virus A Not Detected (NOT DETECT); Respiratory Syncytial Virus B Not Detected (NOT DETECT); SARS-COV-2 Not Detected (NOT DETECT)
== END 2021-06-14 12:42 | disposition home or self-care (01) ==
PROVIDERS: Emergency Provider Emergency Medicine; PCP Family Medicine
DX: J45.901 Unspecified asthma with (acute) exacerbation (principal); Z79.01 Long term (current) use of anticoagulants; J44.9 Chronic obstructive pulmonary disease, unspecified; I10 Essential (primary) hypertension; Z85.118 Personal history of other malignant neoplasm of bronchus and lung; Z92.3 Personal history of irradiation; Z20.822 Contact with and (suspected) exposure to COVID-19
CPT/HCPCS: 36600; 71045; 80053; 82805; 83880; 85025; 87635; 87804; 93005; 94640; 96374; 99284; J2930; J7611

== ENCOUNTER 2021-06-16 09:55 | Emergency (ER) | payer MEDICARE, SELFPAY ==
[2021-06-16] VITALS (8 sets, daily range): BP systolic 142–161; BP diastolic 55–98; PULSE 83–93; RESP 18–24; TEMP 36.8–37.2; O2SAT 87–95; BMI 25.9
--- NOTE | 2021-06-16 09:59 | XR_ITS ---
WS: [id number] XR chest 1V portable [id number] REASON FOR EXAM: dyspnea/cough FINDINGS: There are coarse interstitial reticular lung opacities with vague areas of lucency compatible with ce ntral lobar emphysema. In addition there are linear opacities peripherally along the pleural margin o f the right lower lung. There are coarse reticular and patchy hazy lung opacities in the left lower l isai. These lung findings are more prominent than on the examination of 06/14/2021. No other interval change. XR/XR chest 1V portable [id number] IMPRESSION: The findings in the right lung have the appearance of Adalid B lines as seen in congestive heart failure however the patient has a normal heart size. The changes in left lower lung appear to represent a subacute pneumonitis.
--- NOTE | 2021-06-16 10:37 | ED_ITS ---
HPI - SOB/Dyspnea General: Chief Complaint: Shortness of Breath/Dyspnea Stated Complaint: SOB Time Seen by Provider: 06/16/21 09:57 Source: patient Mode of arrival: ambulatory Limitations: no limitations History of Present Illness: HPI Narrative: 71-year-old female presents emergency room complaining of shortness of breath and increased productive cough. She was seen few days ago and discharged home on oxygen she is already on Eliquis and recently had a CT that was negative for PE. She has a history of lung nodule for which she was treated with radiation ending in December 2020 she has a follow-up next week. She does not smoke but she is having some increased productive cough she denies any fever no diarrhea no myalgias. No significant chest pain at this time. MD elicited complaint: shortness of breath and cough Pertinent past history: COPD and other (Lung CA) Onset (ago): hour(s) Timing: intermittent Severity: moderate Exacerbating factors: exertion and coughing Relieving factors: oxygen and rest Known history of: COPD Associated symptoms: Reports cough; Deny abdominal pain, chest congestion, chest pain, diaphoresis, dizziness, extremity pain, fever(s), hemoptysis, lightheadedness, myalgias, nausea, orthopnea, palpitations, paresthesias, polydipsia, polyuria, rash, sense of impending doom, syncope or vomiting Related Data: Home oxygen amount: 3 liters Review of Systems Const: Denies: fever(s) or diaphoresis ENMT: Denies: throat pain, ear or mastoid pain, nasal discharge or nasal congestion Card: Denies: chest pain, palpitations, lightheadedness, syncope or orthopnea Resp: Denies: hemoptysis or chest congestion GI: Denies: abdominal pain, nausea or vomiting : Denies: flank pain, difficulty voiding, dysuria, urinary frequency or urinary urgency Musc: Denies: extremity pain Skin/Breast: Denies: rash or pruritus Neuro: Denies: dizziness Endo: Denies: polyuria or polydipsia PFS ED PFSH: Medical History Allergic rhinitis Asthma Chronic obstructive pulmonary disease COPD (chronic obstructive pulmonary disease) DVT (deep venous thrombosis) Essential (primary) hypertension -VSS; continue to monitor -continue oral antihypertensives Hypoxia Moderate aortic stenosis -Noted moderate on echo; also noted to have EF=65%, no RWMA, G1DD, moderate pulmonary HTN, mild-moderate TR Nicotine addiction Paroxysmal A-fib -telemetry monitoring; rate controlled -continue cardizem -ASA on hold as on heparin drip; was not on other AC previously Pulmonary nodule Subcapital fracture of left femur -secondary to mechanical fall -s/p bipolar arthroplasty by Dr. Good; POD # 3 -EBL-100 mL -PT/OT evaluations appreciated -strict fall precautions, pain control as needed -bowel regimen -Sherman catheter removed Surgical History H/O tubal ligation Family History Father CAD (coronary artery disease) Mother Cancer Social History Quit status (tobacco): considering quitting Smoking risk assessment/counseling performed?: Yes Alcohol intake: never Counseling given: No Counseling given: No Lives independently: Yes Household members: none Marital status: Current occupational status: retired History of recent travel: No Current gender identity: Female Physical Exam Const: COMMON NORMALS: no acute distress GENERAL APPEARANCE: cooperative and comfortable ORIENTATION/CONSCIOUSNESS: Yes awake, Yes oriented to person, Yes oriented to place and Yes oriented to time HENMT: COMMON NORMALS: normocephalic, atraumatic and hearing grossly normal bilaterally HEAD & SCALP: normocephalic and atraumatic Neck/C-Spine: COMMON NORMALS: no JVD Resp: COMMON NORMALS: normal respiratory effort, No retractions, No use of accessory muscles and clear to auscultation bilaterally AUSCULTATION: clear to auscultation bilaterally and crackles Laterality: bilateral (bases) Cardio: COMMON NORMALS: no JVD, regular rate, regular rhythm and No murmurs present (Cardio) RATE: regular rate RHYTHM: regular rhythm GI: COMMON NORMALS: Soft to palpation and No hepatosplenomegaly present AUSCULTATION: Yes normoactive bowel sounds PALPATION: Yes Soft to palpation, No Tenderness to palpation present (GI), No Guarding due to palpation present (GI) and Yes No hepatosplenomegaly present Extremity: COMMON NORMALS: normal to inspection, capillary refill normal, no clubbing, cyanosis or edema, no calf tenderness and no pedal edema Neuro: SENSORIUM/ORIENTATION: Yes oriented to person, Yes oriented to place and Yes oriented to time Skin: COMMON NORMALS: no rashes or lesions noted GENERAL SKIN EXAM: no rashes or lesions noted Course Vital Signs: Vital signs: Vital Signs Temperature 98.5 F 06/16/21 13:00 Pulse Rate 93 06/16/21 12:00 Respiratory Rate 18 06/16/21 13:00 Blood Pressure 143/55 06/16/21 13:00 Pulse Oximetry 93 06/16/21 13:00 MDM - SOB/Dyspnea Medical Decision Making Patient is feeling much better. Her oxygen needs are at her baseline of 3 L/min. She does have some underlying COPD. She would like to go home I think we can allow her to do that includes exacerbation of COPD use albuterol aggressively put her on a steroid burst and taper and also course of doxycycline since she is having slight increase in production of cough. Return if has further problems. Medical Records I reviewed the patient's medical records. Lab Data I reviewed the patient's lab results. : 06/16/21 10:25 06/16/21 10:25 Labs/Radiology: Radiology Impressions Chest X-Ray 06/16/21 09:59 IMPRESSION: The findings in the right lung have the appearance of Adalid B lines as seen in congestive heart failure however the patient has a normal heart size. The changes in left lower lung appear to represent a subacute pneumonitis. Laboratory Results WBC 13.7 10^3/uL (4.0-10.0) H 06/16/21 10:25 RBC 5.11 10^6/uL (4.1-5.3) 06/16/21 10:25 Hgb 14.7 g/dL (11.5-15.3) 06/16/21 10:25 Hct 45.1 % (37.0-47.0) 06/16/21 10:25 MCV 88.3 fl (81-99) 06/16/21 10:25 MCH 28.8 pg (28.0-34.0) 06/16/21 10:25 MCHC 32.6 g/dL (30.0-36.0) 06/16/21 10:25 RDW 13.5 % (12.1-15.1) 06/16/21 10:25 Plt Count 232 10^3/cmm (130-400) 06/16/21 10:25 MPV 10.4 fL (7.4-10.4) 06/16/21 10:25 Neut % (Auto) 85.7 % 06/16/21 10:25 Lymph % (Auto) 3.5 % 06/16/21 10:25 [place] % (Auto) 10.1 % 06/16/21 10:25 Eos % (Auto) 0.1 % 06/16/21 10:25 Baso % (Auto) 0.2 % 06/16/21 10:25 Neut # (Auto) 11.70 10^3/uL (1.8-7.7) H 06/16/21 10:25 Lymph # (Auto) 0.5 10^3/uL (0.8-4.8) L 06/16/21 10:25 [place] # (Auto) 1.4 10^3/uL (0.2-0.9) H 06/16/21 10:25 Eos # (Auto) 0.0 10^3/uL (0.0-0.8) 06/16/21 10:25 Baso # (Auto) 0.0 10^3/uL (0.0-0.1) 06/16/21 10:25 Nucleated RBC % (auto) 0 % 06/16/21 10:25 Nucleated RBCs # 0.0 /100WBC 06/16/21 10:25 Specimen Type Arterial 06/16/21 10:54 Sample Site Radial, left 06/16/21 10:54 ABG pH 7.51 (7.35-7.45) H 06/16/21 10:54 ABG pCO2 32.4 mmHg (35-45) L 06/16/21 10:54 ABG pO2 60.8 mmHg (80.0-100.0) L 06/16/21 10:54 ABG HCO3 26.0 mmol/L (22-26) 06/16/21 10:54 ABG O2 Saturation 94.0 06/16/21 10:54 ABG Base Excess 3.4 mmol/L (-2.0-2.0) H 06/16/21 10:54 Duncan Test Pos 06/16/21 10:54 A-a O2 Gradient 6.4 mmHg (5-10) 06/16/21 10:54 Hematocrit 42.8 % (37-47) 06/16/21 10:54 Hgb O2 Saturation 91.7 % (95-100) L 06/16/21 10:54 Carboxyhemoglobin 1.6 %THgb (0.4-20.1) 06/16/21 10:54 Methemoglobin 0.8 % (0.4-1.5) 06/16/21 10:54 Total Hemoglobin 14.0 g/dL (12-16) 06/16/21 10:54 Sodium 139.0 mmol/L (131-143) 06/16/21 10:54 Potassium 3.2 mmol/L (3.5-5.0) L 06/16/21 10:54 Glucose 113.0 mg/dL (70-115) 06/16/21 10:54 Ionized Calcium 1.2 mmol/L (1.1-1.4) 06/16/21 10:54 O2 Delivery Device Nc 06/16/21 10:54 O2 Liters/Min 3.5 % 06/16/21 10:54 Hospice/Home Health Aide ID Cak 06/16/21 10:54 Sodium 137 mmol/L (136-145) 06/16/21 10:25 Potassium 3.2 mmol/L (3.5-5.1) L 06/16/21 10:25 Chloride 100 mmol/L (98-107) 06/16/21 10:25 Carbon Dioxide 25 mmol/L (22-29) 06/16/21 10:25 Anion Gap 15.2 (5-19) 06/16/21 10:25 BUN 10 mg/dL (8-23) 06/16/21 10:25 Creatinine 0.6 mg/dL (0.5-0.9) 06/16/21 10:25 GFR Calculation 98.8 mL/min (90-130) 06/16/21 10:25 Glucose 115 mg/dL (65-115) 06/16/21 10:25 Calculated Osmolality 284 mOsm/kg (285-295) L 06/16/21 10:25 Calcium 8.8 mg/dL (8.5-10.5) 06/16/21 10:25 Troponin T Baseline 26 ng/L (0-10) H 06/16/21 10:25 Troponin T 120 Minute 25.71 ng/L (0-10) H 06/16/21 12:35 Delta Troponin T -0.29 ABS# (0-10) L 06/16/21 12:35 Discharge Plan Discharge Patient Disposition: Home Clinical Impression: Acute exacerbation of chronic obstructive airways disease Condition: Stable Prescriptions: New doxycycline hyclate 100 mg capsule 100 mg PO BID 10 Days Qty: 20 0RF Medrol (Larry) 4 mg tablets,dose pack See Rx Instructions .ROUTE .COMPLEX Qty: 21 0RF Rx Instructions: orally per package directions Held prednisone 5 mg tablet 5 mg PO DAILY 90 Days Qty: 90 2RF Hold Instructions: Resume on 06/23/21. No Action albuterol sulfate [ProAir HFA] 90 mcg/actuation HFA aerosol inhaler 2 puff INHALATION Q6H PRN (Reason: Shortness Of Breath) 0RF albuterol sulfate 2.5 mg /3 mL (0.083 %) solution for nebulization 2.5 mg inhalation Q6H PRN (Reason: bronchospasm) Qty: 180 5RF diltiazem HCl 120 mg tablet 120 mg PO BID 0RF fluticasone propionate 50 mcg/actuation spray,suspension 1 spray intranasal Q12H 0RF Eliquis 2.5 mg tablet 2.5 mg PO BID 0RF Trelegy Ellipta 100-62.5-25 mcg blister with device 1 inh INHALATION DAILY@13 0RF furosemide 20 mg tablet 20 mg PO QAM 0RF Discharge Orders: Discharge ED (Routine); Ordered 06/16/21 Ordered By: Theron Cunha Referrals: Thompson Zuluaga MD [Primary Care Provider] - Discharge Diet: Usual diet Discharge Activity: Increase activity as tolerated Patient Instructions: Opioid Safety Activity Restrictions/Additional Instructions: Follow-up with your primary care doctor within the next week sooner if you have further problems. Coding Level of Care Code ED Clarifier Operator for Nan Chaudhary
[2021-06-16 10:42] LABS: Basophils % 0.2 %; Eosinophils % 0.1 %; Hematocrit 45.1 % (37.0-47.0); Hemoglobin 14.7 g/dL (11.5-15.3); Lymphocytes # 0.5 10^3/uL (0.8-4.8); Lymphocytes % 3.5 %; Mean Corpuscular HGB Conc 32.6 g/dL (30.0-36.0); Mean Corpuscular Hemoglobin 28.8 pg (28.0-34.0); Mean Corpuscular Volume 88.3 fl (81-99); Mean Platelet Volume 10.4 fL (7.4-10.4); Monocytes # 1.4 10^3/uL (0.2-0.9); Monocytes % 10.1 %; Neutrophils % 85.7 %; Nucleated Red Blood Cells % 0 %; Platelet Count 232 10^3/cmm (130-400); Red Blood Count 5.11 10^6/uL (4.1-5.3); Red Cell Distribution Width 13.5 % (12.1-15.1); White Blood Count 13.7 10^3/uL (4.0-10.0)
[2021-06-16 11:00] LABS: Anion Gap 15.2 (5-19); Blood Urea Nitrogen 10 mg/dL (8-23); Calcium 8.8 mg/dL (8.5-10.5); Carbon Dioxide 25 mmol/L (22-29); Chloride 100 mmol/L (98-107); Glomerular Filtration Rate 98.8 mL/min (90-130); Glucose 115 mg/dL (65-115); Osmolality Calculated 284 mOsm/kg (285-295); Potassium 3.2 mmol/L (3.5-5.1); Sodium 137 mmol/L (136-145)
[2021-06-16 11:05] LABS: ABG PCO2 32.4 mmHg (35-45); ABG PH Result 7.51 (7.35-7.45); Alveolar-Arterial Oxygen Gradi 6.4 mmHg (5-10); Arterial Blood Gas Hematocrit 42.8 % (37-47); Base Excess ABG 3.4 mmol/L (-2.0-2.0); Blood Gas Allen Test Pos; Blood Gas LPM 3.5 %; Blood Gas Operator Identificat CAK; Blood Gas Sample Site Radial, left; Blood Gas Sample Type Arterial; Carboxyhemoglobin 1.6 %THgb (0.4-20.1); HGB O2 Sat 91.7 % (95-100); Ionized Calcium Level - ABG 1.2 mmol/L (1.1-1.4); Methemoglobin 0.8 % (0.4-1.5); Oxygen Device NC; PO2 ABG 60.8 mmHg (80.0-100.0); Potassium Level - ABG 3.2 mmol/L (3.5-5.0)
--- NOTE | 2021-06-16 11:30 | ECG_ITS ---
[facility] Test Date: 2021-06-16 Pat Name: Lisset Murphy Department: Room: Gender: Female [employer]: : 1950 Requested By: Theron Cavazos Order Number: [id number] Bette MD: Octaviano Castro M.D. Measurements Intervals [place] Rate: 85 P: -42 [place]: 165 QRS: 74 QRSD: 81 T: 75 QT: 371 QTc: 441 Interpretive Statements SINUS RHYTHM WITH OCCASIONAL SUPRAVENTRICULAR PREMATURE COMPLEXES POSSIBLE LEFT ATRIAL ENLARGEMENT [-0.1mV P-WAVE IN V1/V2] SEPTAL MYOCARDIAL INFARCTION , PROBABLY OLD [40+ ms Q WAVE IN V1/V2] Compared to ECG 06/14/2021 09:20:51 Sinus tachycardia no longer present Myocardial infarct finding still present Electronically Signed On 06-17-2021 18:48:56 CDT by Octaviano Castro M.D. [id number]
[2021-06-16] MEDS: levoFLOXacin 750 mg Tablet PO (11:36)
[2021-06-16] MEDS: FUROsemide 10 mg/mL SDV 4mL 40 MG IVP (11:37)
[2021-06-16 11:50] LABS: Troponin(5th) Baseline 26 ng/L (0-10)
--- NOTE | 2021-06-16 12:29 | PC.PHAR ---
pt states she takes care of her own medications-pt states she is no longer taking temazepam 15mg [id number] daily filled on 05/19/21 30d/s and lexapro 10mg daily filled on 05/19/21 30d/s-pt states she was here tuesday and got a rx for prednisone 50mg daily but states she didnt fill because she already had prednisone but it was a different mg-pt states she has 5mg daily that she normally takes but states sun and mon she took 10mg-notes are made in the pharmacy comments
[2021-06-16 13:11] LABS: Troponin 5 2HR 25.71 ng/L (0-10)
[2021-06-16 13:12] LABS: Troponin 5 2HR Delta -0.29 ABS# (0-10)
--- NOTE | 2021-06-16 13:30 | ECG_ITS ---
[facility] Test Date: 2021-06-16 Pat Name: Lisset Murphy Department: Room: Gender: Female [facility]: : 1950 Requested By: Theron Cavazos Order Number: [id number] Bette MD: Octaviano Castro M.D. Measurements Intervals [place] Rate: 93 P: -35 [place]: 162 QRS: 74 QRSD: 77 T: 74 QT: 360 QTc: 448 Interpretive Statements SINUS RHYTHM WITH FREQUENT SUPRAVENTRICULAR PREMATURE COMPLEXES SEPTAL MYOCARDIAL INFARCTION , OF INDETERMINATE AGE [40+ ms Q WAVE IN V1/V2] Compared to ECG 06/16/2021 10:36:26 No significant changes Electronically Signed On 06-17-2021 20:25:54 CDT by Octaviano Castro M.D. [email or web address] [email or web address] [email or web address].[email or web address]/store/[id number]
== END 2021-06-16 13:53 | disposition home or self-care (01) ==
PROVIDERS: Emergency Provider Family Medicine; PCP Family Medicine
DX: J44.1 Chronic obstructive pulmonary disease with (acute) exacerbation (principal); F17.200 Nicotine dependence, unspecified, uncomplicated; Z86.718 Personal history of other venous thrombosis and embolism; Z79.01 Long term (current) use of anticoagulants; I10 Essential (primary) hypertension; I48.0 Paroxysmal atrial fibrillation; C34.90 Malignant neoplasm of unspecified part of unspecified bronchus or lung
CPT/HCPCS: 36600; 71045; 80048; 80051; 82330; 82805; 84484; 85025; 93005; 96374; 99284; J1940

== ENCOUNTER → 2021-08-10 08:48 | Outpatient (BNVA) | payer MEDICARE, SELFPAY | PROVIDERS: PCP Family Medicine; Visit Provider Internal Medicine Critical Care Medicine | DX: J44.1 Chronic obstructive pulmonary disease with (acute) exacerbation (principal); R91.1 Solitary pulmonary nodule; I82.409 Acute embolism and thrombosis of unspecified deep veins of unspecified lower extremity; J96.11 Chronic respiratory failure with hypoxia; Z99.81 Dependence on supplemental oxygen; F17.210 Nicotine dependence, cigarettes, uncomplicated; I10 Essential (primary) hypertension | CPT/HCPCS: 99214 ==

== ENCOUNTER → 2021-12-03 08:36 | Outpatient (BNVA) | payer MEDICARE, SELFPAY | PROVIDERS: PCP Family Medicine; Visit Provider Internal Medicine Critical Care Medicine | DX: J44.1 Chronic obstructive pulmonary disease with (acute) exacerbation (principal); J96.11 Chronic respiratory failure with hypoxia; R91.1 Solitary pulmonary nodule; F17.210 Nicotine dependence, cigarettes, uncomplicated; Z86.718 Personal history of other venous thrombosis and embolism; Z99.81 Dependence on supplemental oxygen | CPT/HCPCS: 71046; 99214 ==

== ENCOUNTER 2021-12-03 14:24 | Outpatient (CLI) | payer MEDICARE, SELFPAY ==
--- NOTE | 2021-12-03 11:04 | PFTS_ITS ---
Date of Study:12/03/21 Date of Dictation: MECHANICS: Forced vital capacity (FVC) is reduced. Forced expiratory volume in one second (FEV1) is reduced. FEV1/FVC is reduced. FLOW VOLUME LOOP: Reduced flow at all lung volumes with significant scooping. LUNG VOLUMES: Total lung capacity (TLC) is normal. Residual volume (RV) is increased. DIFFUSING CAPACITY FOR CARBON MONOXIDE: Moderately reduced. INTERPRETATION: The postbronchodilator spirometry is consistent with moderate airflow obstruction. There is no significant postbronchodilator response. Lung volumes are consistent with mild air trapping. Gas exchange (DLCO) is moderately reduced. MTDD
== END 2021-12-03 14:25 | disposition home or self-care (01) ==
PROVIDERS: PCP Family Medicine; Visit Provider Internal Medicine Pulmonary Disease
DX: J44.9 Chronic obstructive pulmonary disease, unspecified (principal)
CPT/HCPCS: J7611

== ENCOUNTER 2021-12-28 07:35 | Outpatient (CLI) | payer MEDICARE, SELFPAY ==
--- NOTE | 2021-12-28 08:00 | CT_ITS ---
WS: [id number] CT CHEST WITHOUT INTRAVENOUS CONTRAST HISTORY: History of lung cancer. Follow-up chest radiograph 12/03/2021 TECHNIQUE: Contiguous 5 mm axial imaging performed on the thorax. Coronal and sagittal reformats are submitted. All CT scans at [facility] use at least one of these dose optimization techniques: automated exposure control; mA and/or kV adjustment per patient size (includes targeted exams where dose is matched to clinical indication); or iterative reconstruction. CONTRAST: None DLP: 638.78 mGy.cm COMPARISON: Chest radiograph 12/03/2021, prior chest CT 06/11/2021 Lungs and central airway: Severe bilateral chronic emphysema. Several new suspicious findings since . In the region of the previously described RIGHT upper lobe resolving neoplasm is an area of increasing linear consolidation which all may be atelectasis and post treatment changes. Previously described nodule was decreasing in size and is now obscured by the linear area of increasing bandlike consolidation. RIGHT upper lobe thin-walled cysts or cavitation very closely abuts the minor fissure . There is increasing associated peripheral subsolid component. The cystic areas are also increasing in size. This collection now measures 3.4 x 3.2 cm as compared to 2.8 x 2.4 cm. Additional increase i n size of the subsolid lobulated nodule in the LEFT upper lobe measuring 1.2 x 0.9 cm. Maximum diamet er on the prior study was 0.8 cm. Pleura: Normal. No pleural effusion. Heart and pericardium: Normal size heart. Severe coronary artery calcifications. No effusion. Mediastinum and marguerite: No increase in size or new lymph nodes identified on this unenhanced exam. Vessels: Extensive atherosclerosis aorta. There is a component of luminal narrowing through the aorti c arch at the level of the subclavian artery origin. Heavy calcification continues into the great ves sels. Pulmonary artery is enlarged. Chest wall and lower neck: No soft tissue masses. Upper abdomen: Moderate atherosclerotic plaque continues into the suprarenal aorta. Atherosclerotic p laque continues into the mesenteric arteries as visualized. Low-attenuation nodules visualized within the liver are stable and probably represent small cysts. No adrenal mass. Small hiatal hernia. Osseous structures: Moderate anterior wedging of T6, T7 and T9. CT/CT chest wo con [id number] IMPRESSION: 1. Several adverse changes within the lungs as compared to 06/11/2021. 2. Previously described RIGHT upper lobe neoplasm is now obscured by areas of linear atelectasis and consolidation. 3. Cavitary lesion in the RIGHT upper lobe has increased in size and now conta ins peripheral subsolid opacification measuring 3.4 x 3.2 cm. 4. Lobulated subsolid nodule in the LEFT upper lobe increased in size now thierry uring 1.2 x 0.9 cm. 5. No adenopathy. 6. Severe chronic emphysema. 7. Severe atherosclerosis aorta with a component of aortic stenosis near the o rigin of the LEFT subclavian artery. 8. Consider PET/CT imaging follow-up to evaluate the pulmonary changes.
== END 2021-12-28 07:36 | disposition home or self-care (01) ==
LOC: RAD 07:36
PROVIDERS: PCP Family Medicine; Visit Provider Internal Medicine Critical Care Medicine
DX: R91.1 Solitary pulmonary nodule (principal); Z85.118 Personal history of other malignant neoplasm of bronchus and lung; J98.11 Atelectasis; J43.9 Emphysema, unspecified; I70.0 Atherosclerosis of aorta
CPT/HCPCS: 71250

== ENCOUNTER 2022-01-14 11:58 | Emergency (ER) | payer MEDICARE, SELFPAY ==
[2022-01-14 12:12] VITALS: BP 148/74; PULSE 95; RESP 21; TEMP 36.8; O2SAT 94; BMI 20.2
--- NOTE | 2022-01-14 12:15 | XR_ITS ---
WS: [id number] Chest 2 views, 01/14/2022 Clinical Data: shortness of breath Comparison: Two-view chest, 12/03/2021. Findings: No nodules, masses or effusions are seen. The heart is normal. The pulmonary vascularity is not increased. No pneumonia or pneumothorax is seen. The patchy opacity in the right upper lobe has cleared. The aortic arch and descending thoracic aorta show calcification and tortuosity. The diaphra gms are flattened. XR/XR chest 2V* [id number] Impression: 1. Clearing of patchy right upper lobe opacity. 2. Atherosclerosis and hyperinflation.
--- NOTE | 2022-01-14 14:39 | W.ED.SOB ---
HPI - SOB/Dyspnea General: Chief Complaint: Shortness of Breath/Dyspnea Stated Complaint: Spitting up yellow stuff, sob Time Seen by Provider: 01/14/22 14:09 Source: patient Mode of arrival: ambulatory Limitations: no limitations History of Present Illness: HPI Narrative: 71-year-old female presents emergency room with productive cough with thick yellow sputum that began this morning. Having increasing wheezing and difficulty with breathing and is relieved by albuterol nebulizers. She has a history of COPD. She denies any fever. No chest pain. Denies hemoptysis. MD elicited complaint: shortness of breath and cough Pertinent past history: COPD Context: recent illness Timing: constant Severity: mild Exacerbating factors: nothing Relieving factors: nothing Known history of: COPD Associated symptoms: Deny abdominal pain, chest congestion, chest pain, cough, diaphoresis, dizziness, extremity pain, fever(s), hemoptysis, lightheadedness, myalgias, nausea, orthopnea, palpitations, paresthesias, polydipsia, polyuria, rash, sense of impending doom, syncope or vomiting Treatment prior to arrival: bronchodilator Review of Systems Const: Denies: fever(s), chills, fatigue, malaise or diaphoresis ENMT: Denies: throat pain, ear or mastoid pain, nasal discharge or nasal congestion Card: Denies: chest pain, palpitations, lightheadedness, syncope or orthopnea Resp: Reports: dyspnea; Denies: hemoptysis or chest congestion GI: Denies: abdominal pain, nausea or vomiting : Denies: flank pain, difficulty voiding, dysuria, urinary frequency or urinary urgency Musc: Denies: extremity pain Skin/Breast: Denies: rash or pruritus Neuro: Denies: dizziness Endo: Denies: polyuria or polydipsia PFS ED PFSH: Medical History Allergic rhinitis Asthma Chronic obstructive pulmonary disease COPD (chronic obstructive pulmonary disease) DVT (deep venous thrombosis) Essential (primary) hypertension -VSS; continue to monitor -continue oral antihypertensives Hypoxia Moderate aortic stenosis -Noted moderate on echo; also noted to have EF=65%, no RWMA, G1DD, moderate pulmonary HTN, mild-moderate TR Nicotine addiction Paroxysmal A-fib -telemetry monitoring; rate controlled -continue cardizem -ASA on hold as on heparin drip; was not on other AC previously Pulmonary nodule Subcapital fracture of left femur -secondary to mechanical fall -s/p bipolar arthroplasty by Dr. Good; POD # 3 -EBL-100 mL -PT/OT evaluations appreciated -strict fall precautions, pain control as needed -bowel regimen -Sherman catheter removed Surgical History H/O tubal ligation Family History Father CAD (coronary artery disease) Mother Cancer Social History Smoking and tobacco status: current every day smoker (4/5 cigs) cigarettes Packs smoked per day: 1.5 Years cigarettes smoked: 50 [ Other cigarette details: Started at age 13 years] Quit status (tobacco): considering quitting Smoking risk assessment/counseling performed?: Yes Alcohol intake: never Counseling given: No Counseling given: No Lives independently: Yes Household members: none Marital status: Current occupational status: retired History of recent travel: No Current gender identity: Female Physical Exam Const: GENERAL APPEARANCE: cooperative and comfortable ORIENTATION/CONSCIOUSNESS: Yes awake, Yes oriented to person, Yes oriented to place and Yes oriented to time HENMT: COMMON NORMALS: normocephalic, atraumatic and hearing grossly normal bilaterally HEAD & SCALP: normocephalic and atraumatic Resp: COMMON NORMALS: normal respiratory effort, No retractions and No use of accessory muscles AUSCULTATION: rhonchi and wheezes Cardio: COMMON NORMALS: regular rate, regular rhythm and No murmurs present (Cardio) RATE: regular rate RHYTHM: regular rhythm GI: COMMON NORMALS: Soft to palpation and No hepatosplenomegaly present AUSCULTATION: Yes normoactive bowel sounds PALPATION: Yes Soft to palpation, No Tenderness to palpation present (GI), No Guarding due to palpation present (GI) and Yes No hepatosplenomegaly present Extremity: COMMON NORMALS: normal to inspection, capillary refill normal, no clubbing, cyanosis or edema, no calf tenderness and no pedal edema Neuro: SENSORIUM/ORIENTATION: Yes oriented to person, Yes oriented to place and Yes oriented to time Skin: COMMON NORMALS: no rashes or lesions noted GENERAL SKIN EXAM: no rashes or lesions noted Course Vital Signs: Vital signs: Vital Signs Temperature 98.2 F 01/14/22 12:12 Pulse Rate 95 01/14/22 15:46 Respiratory Rate 20 H 01/14/22 15:46 Blood Pressure 157/108 01/14/22 15:46 Pulse Oximetry 95 01/14/22 15:46 Oxygen Delivery Me thod 01/14/22 15:46 MDM - SOB/Dyspnea Medical Decision Making Patient is not significantly hypoxic nor tachycardic she not having any chest pain did not believe she has acute coronary syndrome. She has some infiltrate on her right upper lobe but is actually improving from previous chest x-ray. She is improved since arrival. She is not requiring oxygen supplementation. No evidence of pneumonia based on her symptoms and not believe she has COVID-19. Appears to be more of a straightforward exacerbation of her COPD. We will discharge her home on steroids doxycycline aggressive pulmonary toilet with albuterol and recheck with her primary care doctor if not improving or return to the emergency room if worsens. Medical Records I reviewed the patient's medical records. Lab Data I reviewed the patient's lab results. : 01/14/22 15:03 01/14/22 15:03 Labs/Radiology: Radiology Impressions Chest X-Ray 01/14/22 12:15 Impression: 1. Clearing of patchy right upper lobe opacity. 2. Atherosclerosis and hyperinflation. Laboratory Results WBC 9.1 10^3/uL (4.0-10.0) 01/14/22 15:03 RBC 5.14 10^6/uL (4.1-5.3) 01/14/22 15:03 Hgb 14.0 g/dL (11.5-15.3) 01/14/22 15:03 Hct 44.3 % (37.0-47.0) 01/14/22 15:03 MCV 86.2 fl (81-99) 01/14/22 15:03 MCH 27.2 pg (28.0-34.0) L 01/14/22 15:03 MCHC 31.6 g/dL (30.0-36.0) 01/14/22 15:03 RDW 15.7 % (12.1-15.1) H 01/14/22 15:03 Plt Count 161 10^3/cmm (130-400) 01/14/22 15:03 MPV 10.4 fL (7.4-10.4) 01/14/22 15:03 Neut % (Auto) 84.3 % 01/14/22 15:03 Lymph % (Auto) 6.9 % 01/14/22 15:03 Lamb % (Auto) 7.3 % 01/14/22 15:03 Eos % (Auto) 0.4 % 01/14/22 15:03 Baso % (Auto) 0.4 % 01/14/22 15:03 Neut # (Auto) 7.70 10^3/uL (1.8-7.7) 01/14/22 15:03 Lymph # (Auto) 0.6 10^3/uL (0.8-4.8) L 01/14/22 15:03 [place] # (Auto) 0.7 10^3/uL (0.2-0.9) 01/14/22 15:03 Eos # (Auto) 0.0 10^3/uL (0.0-0.8) 01/14/22 15:03 Baso # (Auto) 0.0 10^3/uL (0.0-0.1) 01/14/22 15:03 Nucleated RBC % (auto) 0 % 01/14/22 15:03 Nucleated RBCs # 0.0 /100WBC 01/14/22 15:03 Sodium 137 mmol/L (136-145) 01/14/22 15:03 Potassium 3.8 mmol/L (3.5-5.1) 01/14/22 15:03 Chloride 98 mmol/L (98-107) 01/14/22 15:03 Carbon Dioxide 28 mmol/L (22-29) 01/14/22 15:03 Anion Gap 14.8 (5-19) 01/14/22 15:03 BUN 8 mg/dL (8-23) 01/14/22 15:03 Creatinine 0.6 mg/dL (0.5-0.9) 01/14/22 15:03 GFR Calculation 98.8 mL/min (90-130) 01/14/22 15:03 Glucose 90 mg/dL (65-115) 01/14/22 15:03 Calculated Osmolality 282 mOsm/kg (285-295) L 01/14/22 15:03 Calcium 9.4 mg/dL (8.5-10.5) 01/14/22 15:03 Total Bilirubin 0.4 mg/dL (0.15-1.2) 01/14/22 15:03 AST 14 U/L (0-32) 01/14/22 15:03 ALT 16 U/L (0-33) 01/14/22 15:03 Alkaline Phosphatase 93 U/L (35-105) 01/14/22 15:03 NT-Pro-B Natriuret Pep 893 pg/mL (0-125) H 01/14/22 15:03 Total Protein 7.5 g/dL (6.6-8.7) 01/14/22 15:03 Albumin 4.0 g/dL (3.5-5.2) 01/14/22 15:03 Globulin 3.5 g/dL (1.3-4.6) 01/14/22 15:03 Discharge Plan Discharge Patient Disposition: Home Clinical Impression: Acute exacerbation of chronic obstructive airways disease Condition: Stable Prescriptions: New doxycycline hyclate 100 mg capsule 100 mg PO BID 10 Days Qty: 20 0RF Medrol (Larry) 4 mg tablets,dose pack See Rx Instructions .ROUTE .COMPLEX Qty: 21 0RF Rx Instructions: orally per package directions No Action albuterol sulfate [ProAir HFA] 90 mcg/actuation HFA aerosol inhaler 2 puff INHALATION Q6H PRN (Reason: Shortness Of Breath) albuterol sulfate 2.5 mg /3 mL (0.083 %) solution for nebulization 2.5 mg inhalation Q6H PRN (Reason: bronchospasm) Qty: 180 5RF fluticasone propionate 50 mcg/actuation spray,suspension 1 spray intranasal Q12H Qty: 16 4RF Eliquis 2.5 mg tablet 2.5 mg PO BID Qty: 60 3RF diltiazem HCl 120 mg tablet 120 mg PO BID Trelegy Ellipta 100-62.5-25 mcg blister with device 1 inh INHALATION DAILY@09 furosemide 20 mg tablet 20 mg PO QAM prednisone 5 mg tablet 5 mg PO BID@06,13 Discharge Orders: Discharge ED (Routine); Ordered 01/14/22 Ordered By: Theron Cunha Referrals: Thompson Zuluaga MD [Primary Care Provider] - Patient Instructions: Opioid Safety, Pain Management Activity Restrictions/Additional Instructions: Prednisone taper starting tomorrow. Use albuterol as needed start doxycycline today follow-up if not improving. Coding Level of Care Code ED Scholastic Aptitude Test Grader for Chg Fwd Exam Detailed
[2022-01-14 14:48] VITALS: BP 147/97; PULSE 97; RESP 20; O2SAT 94
[2022-01-14 15:00] VITALS: PULSE 96; RESP 18; O2SAT 94
[2022-01-14 15:12] LABS: Basophils % 0.4 %; Eosinophils % 0.4 %; Hematocrit 44.3 % (37.0-47.0); Lymphocytes # 0.6 10^3/uL (0.8-4.8); Lymphocytes % 6.9 %; Mean Corpuscular HGB Conc 31.6 g/dL (30.0-36.0); Mean Corpuscular Hemoglobin 27.2 pg (28.0-34.0); Mean Corpuscular Volume 86.2 fl (81-99); Mean Platelet Volume 10.4 fL (7.4-10.4); Monocytes # 0.7 10^3/uL (0.2-0.9); Monocytes % 7.3 %; Neutrophils % 84.3 %; Nucleated Red Blood Cells % 0 %; Platelet Count 161 10^3/cmm (130-400); Red Blood Count 5.14 10^6/uL (4.1-5.3); Red Cell Distribution Width 15.7 % (12.1-15.1); White Blood Count 9.1 10^3/uL (4.0-10.0)
[2022-01-14 15:45] LABS: Alanine Aminotransferase 16 U/L (0-33); Alkaline Phosphatase 93 U/L (35-105); Anion Gap 14.8 (5-19); Aspartate Amino Transferase 14 U/L (0-32); Blood Urea Nitrogen 8 mg/dL (8-23); Calcium 9.4 mg/dL (8.5-10.5); Carbon Dioxide 28 mmol/L (22-29); Chloride 98 mmol/L (98-107); Globulin 3.5 g/dL (1.3-4.6); Glomerular Filtration Rate 98.8 mL/min (90-130); Glucose 90 mg/dL (65-115); NT Pro B Type Natriuretic Pept 893 pg/mL (0-125); Osmolality Calculated 282 mOsm/kg (285-295); Potassium 3.8 mmol/L (3.5-5.1); Sodium 137 mmol/L (136-145); Total Bilirubin 0.4 mg/dL (0.15-1.2); Total Protein 7.5 g/dL (6.6-8.7)
[2022-01-14 15:46] VITALS: BP 157/108; PULSE 95; RESP 20; O2SAT 95
== END 2022-01-14 16:11 | disposition home or self-care (01) ==
PROVIDERS: Emergency Provider Family Medicine; PCP Family Medicine
DX: J44.1 Chronic obstructive pulmonary disease with (acute) exacerbation (principal); Z79.01 Long term (current) use of anticoagulants; F17.210 Nicotine dependence, cigarettes, uncomplicated; I10 Essential (primary) hypertension
CPT/HCPCS: 36415; 71046; 80053; 83880; 85025; 99284

== ENCOUNTER 2022-01-25 09:06 | Emergency (ER) | payer MEDICARE, OTHER, SELFPAY ==
[2022-01-25] VITALS (31 sets, daily range): BP systolic 120–160; BP diastolic 59–85; PULSE 72–89; RESP 14–39; TEMP 36.8; O2SAT 77–98; BMI 20.6
--- NOTE | 2022-01-25 09:24 | XR_ITS ---
WS: [id number] Exam: XR chest 1V portable [id number] Date/Time of Exam: 01/25/2022 9:27 AM Reason For Exam: dyspnea/cough Comparison 01/14/2022. Mild bibasal infiltrates are noted. The lungs are fully expanded. Normal cardiomediastinal silhouette . Bony structures are intact. Monitoring leads superimpose the chest. XR/XR chest 1V portable [id number] IMPRESSION: 1. Mild bibasal pulmonary infiltrates. Developing pneumonia is not excluded.
--- NOTE | 2022-01-25 09:24 | ECG_ITS ---
[facility] Test Date: 2022-01-25 Pat Name: Lisset Murphy Department: Room: Gender: Female Rcp: : 1950 Requested By: Theron Cavazos Order Number: [id number] Bette MD: Geraldine Jade M.D. Measurements Intervals [place] Rate: 75 P: -31 NV: 196 QRS: 58 QRSD: 78 T: 73 QT: 369 QTc: 415 Interpretive Statements SINUS RHYTHM WITH OCCASIONAL SUPRAVENTRICULAR PREMATURE COMPLEXES SEPTAL MYOCARDIAL INFARCTION , PROBABLY OLD [40+ ms Q WAVE IN V1/V2] Compared to ECG 06/16/2021 12:24:49 No significant changes Electronically Signed On 01-25-2022 22:54:51 CDT by Geraldine Jade M.D. [email or web address].[facility] Hallpan[facility] medical centerNanotech Semiconductormercy health [facility].[employer]/store/OM/[id number]
[2022-01-25 09:41] LABS: Basophils # 0.1 10^3/uL (0.0-0.1); Basophils % 0.5 %; Eosinophils % 0.3 %; Hematocrit 35.8 % (37.0-47.0); Hemoglobin 11.4 g/dL (11.5-15.3); Lymphocytes # 0.4 10^3/uL (0.8-4.8); Lymphocytes % 4.7 %; Mean Corpuscular HGB Conc 31.8 g/dL (30.0-36.0); Mean Corpuscular Hemoglobin 27.9 pg (28.0-34.0); Mean Corpuscular Volume 87.5 fl (81-99); Mean Platelet Volume 10.5 fL (7.4-10.4); Monocytes # 0.7 10^3/uL (0.2-0.9); Monocytes % 7.9 %; Neutrophils # 7.82 10^3/uL (1.8-7.7); Neutrophils % 85.9 %; Nucleated Red Blood Cells % 0 %; Platelet Count 142 10^3/cmm (130-400); Red Blood Count 4.09 10^6/uL (4.1-5.3); Red Cell Distribution Width 15.3 % (12.1-15.1); White Blood Count 9.1 10^3/uL (4.0-10.0)
[2022-01-25] MEDS: ipratropium-albuterol 3 mL Neb INHALATION (09:41)
[2022-01-25 09:58] LABS: Alanine Aminotransferase 12 U/L (0-33); Alkaline Phosphatase 68 U/L (35-105); Aspartate Amino Transferase 11 U/L (0-32); Chloride 101 mmol/L (98-107); Globulin 2.3 g/dL (1.3-4.6); Sodium 137 mmol/L (136-145)
[2022-01-25 10:01] LABS: Troponin(5th) Baseline 29 ng/L (0-10)
[2022-01-25 10:13] LABS: Albumin Level 3.2 g/dL (3.5-5.2); Anion Gap 11.4 (5-19); Blood Urea Nitrogen 8 mg/dL (8-23); Calcium 8.5 mg/dL (8.5-10.5); Carbon Dioxide 27 mmol/L (22-29); Glomerular Filtration Rate 157.8 mL/min (90-130); Glucose 134 mg/dL (65-115); Osmolality Calculated 280 mOsm/kg (285-295); Potassium 3.4 mmol/L (3.5-5.1); Total Bilirubin 0.5 mg/dL (0.15-1.2)
--- NOTE | 2022-01-25 10:17 | ED_ITS ---
HPI - SOB/Dyspnea General: Chief Complaint: Shortness of Breath/Dyspnea Stated Complaint: SOB Time Seen by Provider: 01/25/22 09:23 Source: patient Mode of arrival: ambulatory History of Present Illness: HPI Narrative: 71-year-old female who presents to the emergency room with complaints of shortness of breath. She is also complaining of some right-sided chest pain which is new. We seen her on 1013 at that time she was not having any chest pain chest x-ray actually showed improvement from prior we treated her with steroids and aggressive use of albuterol she seemed to be doing okay until the last day or 2 she has had right-sided chest pain and mildly productive cough of thick white sputum. She denies any fever sweats or chills. She has oxygen but she usually been using it at home at night at 4 L she has not been using it during the day when I first came in the room she was at 4 L/min in the mid to low 90s I titrated her down to 2 and observe for a time and see her sats decreased to 84-85%. MD elicited complaint: shortness of breath and cough Pertinent past history: COPD Timing: constant and progressively worsening Severity: moderate Exacerbating factors: lying flat, exertion and coughing Relieving factors: oxygen and rest Known history of: COPD Associated symptoms: Reports chest congestion, chest pain, cough and nausea; Deny abdominal pain, diaphoresis, dizziness, extremity pain, fever(s), hemoptysis, lightheadedness, myalgias, orthopnea, palpitations, paresthesias, polydipsia, polyuria, rash, sense of impending doom, syncope or vomiting Treatment prior to arrival: oxygen and bronchodilator Review of Systems Const: Reports: fatigue and malaise; Denies: fever(s), chills or diaphoresis Card: Reports: chest pain; Denies: palpitations, lightheadedness, syncope or orthopnea Resp: Reports: dyspnea, productive cough, wheezing and chest congestion; Denies: hemoptysis GI: Reports: nausea; Denies: abdominal pain or vomiting : Denies: flank pain, difficulty voiding, dysuria, urinary frequency or urinary urgency Musc: Denies: neck pain, back pain or extremity pain Skin/Breast: Denies: rash or pruritus Neuro: Denies: dizziness Endo: Denies: polyuria or polydipsia PFSH ED PFSH: Medical History Allergic rhinitis Asthma Chronic obstructive pulmonary disease COPD (chronic obstructive pulmonary disease) DVT (deep venous thrombosis) Essential (primary) hypertension -VSS; continue to monitor -continue oral antihypertensives Hypoxia Moderate aortic stenosis -Noted moderate on echo; also noted to have EF=65%, no RWMA, G1DD, moderate pulmonary HTN, mild-moderate TR Nicotine addiction Paroxysmal A-fib -telemetry monitoring; rate controlled -continue cardizem -ASA on hold as on heparin drip; was not on other AC previously Pulmonary nodule Subcapital fracture of left femur -secondary to mechanical fall -s/p bipolar arthroplasty by Dr. Good; POD # 3 -EBL-100 mL -PT/OT evaluations appreciated -strict fall precautions, pain control as needed -bowel regimen -Sherman catheter removed Surgical History H/O tubal ligation Family History Father CAD (coronary artery disease) Mother Cancer Social History Smoking and tobacco status: current every day smoker (4/5 cigs) cigarettes Packs smoked per day: 1.5 Years cigarettes smoked: 50 [ Other cigarette details: Started at age 13 years] Quit status (tobacco): considering quitting Smoking risk assessment/counseling performed?: Yes Alcohol intake: never Counseling given: No Counseling given: No Lives independently: Yes Household members: none Marital status: Current occupational status: retired History of recent travel: No Current gender identity: Female Physical Exam Const: COMMON NORMALS: no acute distress GENERAL APPEARANCE: cooperative and comfortable ORIENTATION/CONSCIOUSNESS: Yes awake, Yes oriented to person, Yes oriented to place and Yes oriented to time HENMT: COMMON NORMALS: normocephalic, atraumatic and hearing grossly normal bilaterally HEAD & SCALP: normocephalic and atraumatic Resp: COMMON NORMALS: No retractions AUSCULTATION: rhonchi and wheezes Cardio: COMMON NORMALS: regular rate, regular rhythm and No murmurs present (Cardio) RATE: regular rate RHYTHM: regular rhythm GI: COMMON NORMALS: Soft to palpation and No hepatosplenomegaly present AUSCULTATION: Yes normoactive bowel sounds PALPATION: Yes Soft to palpation, No Tenderness to palpation present (GI), No Guarding due to palpation present (GI) and Yes No hepatosplenomegaly present Extremity: COMMON NORMALS: normal to inspection, capillary refill normal, no clubbing, cyanosis or edema, no calf tenderness and no pedal edema Neuro: SENSORIUM/ORIENTATION: Yes oriented to person, Yes oriented to place and Yes oriented to time Skin: COMMON NORMALS: no rashes or lesions noted GENERAL SKIN EXAM: no rashes or lesions noted Course Vital Signs: Vital signs: Vital Signs Temperature 98.2 F 01/25/22 09:07 Pulse Rate 86 01/25/22 13:23 Respiratory Rate 18 01/25/22 13:23 Blood Pressure 160/74 01/25/22 13:23 Pulse Oximetry 90 01/25/22 13:23 Oxygen Delivery Me thod 01/25/22 11:30 Oxygen Flow Rate 4 01/25/22 11:30 MDM - SOB/Dyspnea Medical Decision Making Acute exacerbation of COPD history of lung cancer and acute mid pneumonia noted on imaging. Start Levaquin 500 daily for 7 days albuterol. Follow-up with primary care within the week to reevaluate return to the ER if significant worsening. Medical Records I reviewed the patient's medical records. Lab Data I reviewed the patient's lab results. : 01/25/22 09:34 01/25/22 09:34 Labs/Radiology: Radiology Impressions Chest X-Ray 01/25/22 09:24 IMPRESSION: 1. Mild bibasal pulmonary infiltrates. Developing pneumonia is not excluded. Laboratory Results WBC 9.1 10^3/uL (4.0-10.0) 01/25/22 09:34 RBC 4.09 10^6/uL (4.1-5.3) L 01/25/22 09:34 Hgb 11.4 g/dL (11.5-15.3) L 01/25/22 09:34 Hct 35.8 % (37.0-47.0) L 01/25/22 09:34 MCV 87.5 fl (81-99) 01/25/22 09:34 MCH 27.9 pg (28.0-34.0) L 01/25/22 09:34 MCHC 31.8 g/dL (30.0-36.0) 01/25/22 09:34 RDW 15.3 % (12.1-15.1) H 01/25/22 09:34 Plt Count 142 10^3/cmm (130-400) 01/25/22 09:34 MPV 10.5 fL (7.4-10.4) H 01/25/22 09:34 Neut % (Auto) 85.9 % 01/25/22 09:34 Lymph % (Auto) 4.7 % 01/25/22 09:34 [place] % (Auto) 7.9 % 01/25/22 09:34 Eos % (Auto) 0.3 % 01/25/22 09:34 Baso % (Auto) 0.5 % 01/25/22 09:34 Neut # (Auto) 7.82 10^3/uL (1.8-7.7) H 01/25/22 09:34 Lymph # (Auto) 0.4 10^3/uL (0.8-4.8) L 01/25/22 09:34 [place] # (Auto) 0.7 10^3/uL (0.2-0.9) 01/25/22 09:34 Eos # (Auto) 0.0 10^3/uL (0.0-0.8) 01/25/22 09:34 Baso # (Auto) 0.1 10^3/uL (0.0-0.1) 01/25/22 09:34 Nucleated RBC % (auto) 0 % 01/25/22 09:34 Nucleated RBCs # 0.0 /100WBC 01/25/22 09:34 Sodium 137 mmol/L (136-145) 01/25/22 09:34 Potassium 3.4 mmol/L (3.5-5.1) L 01/25/22 09:34 Chloride 101 mmol/L (98-107) 01/25/22 09:34 Carbon Dioxide 27 mmol/L (22-29) 01/25/22 09:34 Anion Gap 11.4 (5-19) 01/25/22 09:34 BUN 8 mg/dL (8-23) 01/25/22 09:34 Creatinine 0.4 mg/dL (0.5-0.9) L 01/25/22 09:34 GFR Calculation 157.8 mL/min (90-130) H 01/25/22 09:34 Glucose 134 mg/dL (65-115) H 01/25/22 09:34 Calculated Osmolality 280 mOsm/kg (285-295) L 01/25/22 09:34 Calcium 8.5 mg/dL (8.5-10.5) 01/25/22 09:34 Total Bilirubin 0.5 mg/dL (0.15-1.2) 01/25/22 09:34 AST 11 U/L (0-32) 01/25/22 09:34 ALT 12 U/L (0-33) 01/25/22 09:34 Alkaline Phosphatase 68 U/L (35-105) 01/25/22 09:34 Troponin T Baseline 29 ng/L (0-10) H 01/25/22 09:34 Troponin T 120 Minute 24.99 ng/L (0-10) H 01/25/22 11:17 Delta Troponin T -4.01 ABS# (0-10) L 01/25/22 11:17 Total Protein 6.0 g/dL (6.6-8.7) L 01/25/22 09:34 Albumin 3.2 g/dL (3.5-5.2) L 01/25/22 09:34 Globulin 2.3 g/dL (1.3-4.6) 01/25/22 09:34 Urine Color Yellow (Yellow) 01/25/22 11:23 Urine Appearance Clear (CLEAR) 01/25/22 11:23 Urine pH 7 (5-7) 01/25/22 11:23 Ur Specific [place] 1.010 (1.005-1.030) 01/25/22 11:23 Urine Protein Neg (Negative) 01/25/22 11:23 Urine Glucose (UA) Norm (Normal) 01/25/22 11:23 Urine Ketones Negative (Negative) 01/25/22 11:23 Urine Blood Neg (Negative) 01/25/22 11:23 Urine Nitrate Negative (Negative) 01/25/22 11:23 Urine Bilirubin Neg (Negative) 01/25/22 11:23 Urine Urobilinogen Neg mg/dL (Negative) 01/25/22 11:23 Ur Leukocyte Esterase Negative (Negative) 01/25/22 11:23 Coronavirus 229E (PCR) Not detected (NOT DETECT) 01/25/22 12:31 SARS-CoV-2 (PCR) Not detected (NOT DETECT) 01/25/22 12:31 Discharge Plan Discharge Patient Disposition: Home Clinical Impression: Acute exacerbation of chronic obstructive airways disease, Lung cancer, C ommunity acquired pneumonia Condition: Stable Prescriptions: Continued albuterol sulfate 2.5 mg /3 mL (0.083 %) solution for nebulization 2.5 mg inhalation Q6H PRN (Reason: bronchospasm) Qty: 180 5RF No Action albuterol sulfate [ProAir HFA] 90 mcg/actuation HFA aerosol inhaler 2 puff INHALATION Q6H PRN (Reason: Shortness Of Breath) alprazolam 0.25 mg tablet 0.25 mg PO BID PRN temazepam 15 mg capsule 15 mg PO BEDTIME PRN (Reason: sleep) Rx Instructions: 1-2 caps as needed at HS escitalopram oxalate [Lexapro] 10 mg tablet 10 mg PO DAILY (DME) Home oxygen See Rx Instructions .Route .MEDSUPPLY Qty: 1 0RF Rx Instructions: give machine and supplies. 3 L per NC at rest/ sleep and with activity fluticasone propionate 50 mcg/actuation spray,suspension 1 spray intranasal Q12H Qty: 16 4RF Eliquis 2.5 mg tablet 2.5 mg PO BID Qty: 60 3RF diltiazem HCl 120 mg tablet 120 mg PO BID Trelegy Ellipta 100-62.5-25 mcg blister with device 1 inh INHALATION DAILY@09 furosemide 20 mg tablet 20 mg PO QAM prednisone 5 mg tablet 5 mg PO BID@06,13 Discharge Orders: Discharge ED (Routine); Ordered 01/25/22 Ordered By: Theron Cunha Referrals: Thompson Zuluaga MD [Primary Care Provider] - Discharge Diet: Usual diet Discharge Activity: Increase activity as tolerated Patient Instructions: Opioid Safety, Pain Management Activity Restrictions/Additional Instructions: Start Levaquin 500 mg daily for 7 days. Use albuterol nebulizers every 4-6 hours while awake. Follow-up with dr. Moy in his office tomorrow at 8:10 AM. Coding Level of Care Code ED Hydroelectric Operator for Chg Fwd Exam Detailed
[2022-01-25 11:31] LABS: Add Urine Microscopic? NO; Charge for UA Resulting for Rev
[2022-01-25 11:44] LABS: Bilirubin Urine Neg (Negative); Blood Urine Neg (Negative); Glucose Urine UA Norm (Normal); Ketones Urine Negative (Negative); Leukocyte Esterase Urine Negative (Negative); Nitrate Urine Negative (Negative); Protein Urine Neg (Negative); Urine Appearance Clear (CLEAR); Urine Color Yellow (Yellow); Urobilinogen Urine Neg (Negative); pH Urine 7 (5-7)
[2022-01-25 11:45] LABS: Troponin 5 2HR 24.99 ng/L (0-10)
[2022-01-25 11:49] LABS: Troponin 5 2HR Delta -4.01 ABS# (0-10)
--- NOTE | 2022-01-25 12:15 | ECG_ITS ---
[facility] Test Date: 2022-01-25 Pat Name: Lisset Murphy Department: Room: Gender: Female Compensation And Hris Analyst: : 1950 Requested By: Theron Cavazos Order Number: [id number] Bette MD: Geraldine Jade M.D. Measurements Intervals [place] Rate: 82 P: -74 [place]: 162 QRS: 41 QRSD: 81 T: 75 QT: 386 QTc: 453 Interpretive Statements ECTOPIC ATRIAL RHYTHM WITH FREQUENT SUPRAVENTRICULAR PREMATURE COMPLEXES SEPTAL MYOCARDIAL INFARCTION , PROBABLY OLD [40+ ms Q WAVE IN V1/V2] Compared to ECG 01/25/2022 09:51:17 Ectopic atrial rhythm now present Sinus rhythm no longer present Myocardial infarct finding still present Electronically Signed On 01-25-2022 23:07:27 CDT by Geraldine Jade M.D. [id number]
[2022-01-25 14:30] LABS: Adenovirus Not Detected (NOT DETECT); Chlamydia Pneumoniae Not Detected (NOT DETECT); Coronavirus 229E,HKU1,NL63,OC4 Not Detected (NOT DETECT); Human Metapneumovirus Not Detected (NOT DETECT); Human Rhinovirus/Enterovirus Not Detected (NOT DETECT); Influenza A Not Detected (NOT DETECT); Influenza A H1 Not Detected (NOT DETECT); Influenza A H1-2009 Not Detected (NOT DETECT); Influenza A H3 Not Detected (NOT DETECT); Influenza B Not Detected (NOT DETECT); Mycoplasma Pneumoniae Not Detected (NOT DETECT); Parainfluenza Virus Type 1 Not Detected (NOT DETECT); Parainfluenza Virus Type 2 Not Detected (NOT DETECT); Parainfluenza Virus Type 3 Not Detected (NOT DETECT); Parainfluenza Virus Type 4 Not Detected (NOT DETECT); Respiratory Syncytial Virus A Not Detected (NOT DETECT); Respiratory Syncytial Virus B Not Detected (NOT DETECT); SARS-COV-2 Not Detected (NOT DETECT)
== END 2022-01-25 13:24 | disposition home or self-care (01) ==
PROVIDERS: Emergency Provider Family Medicine; PCP Family Medicine
DX: J44.0 Chronic obstructive pulmonary disease with (acute) lower respiratory infection (principal); J18.8 Other pneumonia, unspecified organism; J44.1 Chronic obstructive pulmonary disease with (acute) exacerbation; C34.90 Malignant neoplasm of unspecified part of unspecified bronchus or lung; Z79.01 Long term (current) use of anticoagulants; Z20.822 Contact with and (suspected) exposure to COVID-19; F17.210 Nicotine dependence, cigarettes, uncomplicated; I10 Essential (primary) hypertension
CPT/HCPCS: 36415; 71045; 80053; 81003; 84484; 85025; 87635; 93005; 94640; 99285; J7611

== ENCOUNTER → 2022-02-05 08:40 | Outpatient (BNVA) | payer MEDICARE, SELFPAY | PROVIDERS: PCP Family Medicine; Visit Provider Internal Medicine Pulmonary Disease | DX: J44.1 Chronic obstructive pulmonary disease with (acute) exacerbation (principal); J96.11 Chronic respiratory failure with hypoxia; C34.11 Malignant neoplasm of upper lobe, right bronchus or lung; F17.210 Nicotine dependence, cigarettes, uncomplicated; Z92.3 Personal history of irradiation; Z86.718 Personal history of other venous thrombosis and embolism; Z79.01 Long term (current) use of anticoagulants; Z99.81 Dependence on supplemental oxygen | CPT/HCPCS: 99214 ==

== ENCOUNTER 2022-05-05 03:55 | Emergency (ER) | payer MEDICARE, SELFPAY ==
--- NOTE | 2022-05-05 04:01 | CTR_ITS ---
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 History of lung cancer. TECHNIQUE: Imaging protocol: CT of the Left lower extremity without contrast was performed. Exam focused on the hip. Radiation optimization: All CT scans at this facility use at least one of these dose optimization techniques: automated exposure control; mA and/or kV adjustment per patient size (includes targeted exams where dose is matched to clinical indication); or iterative reconstruction. Other protocol: This patient has received 4 known CTs and 0 known cardiac nuclear medicine studies in the 12 months prior to the current study. COMPARISON: CR (PELVIS, ) 05/05/2022 4:06 AM RADIATION DOSE METRICS: Total DLP (mGy-cm): 280.71 FINDINGS: Limitations: Streak artifact from metallic hip arthroplasty limits evaluation. Tubes, catheters and devices: No evidence of aseptic loosening of the orthopedic hardware. Bones/joints: A bipolar left hip arthroplasty seen in near anatomic alignment. There is diffuse osseous demineralization. No acute fractures identified. There are degenerative changes of the symphysis pubis. There is fracture of the left anterior inferior iliac spine of unknown acuity. There are no aggressive bone lesions. Soft tissues: Normal. Vasculature: There are vascular calcifications in the left external iliac and left femoral arteries. CT/CT hip LT wo con* [id number] IMPRESSION: 1. Status post left hip arthroplasty that remains in stable, near anatomic alignment. 2. No evidence of aseptic loosening of the orthopedic hardware. 3. No aggressive bone lesion is identified. 4. There is fracture of the left anterior inferior iliac spine of unknown acuity. This may represent refractured at the site of an old avulsion injury in the setting of severe osteopenia, but clinical correlation is necessary as to pain and tenderness over this area.
--- NOTE | 2022-05-05 04:01 | CTR_ITS ---
PROCEDURE INFORMATION: Exam: CT Abdomen And Pelvis Without Contrast Exam date and time: 05/05/2022 4:31 AM Age: 71 years old Clinical indication: Abdominal pain; Localized; Prior surgery; Surgery type: Tubal. Epifanio; Patient HX: C/O lower abd/pelvic pain. History of lung cancer. ; Additional info: Abd pain TECHNIQUE: Imaging protocol: Computed tomography of the abdomen and pelvis without contrast. Radiation optimization: All CT scans at this facility use at least one of these dose optimization techniques: automated exposure control; mA and/or kV adjustment per patient size (includes targeted exams where dose is matched to clinical indication); or iterative reconstruction. Other protocol: This patient has received 4 known CTs and 0 known cardiac nuclear medicine studies in the 12 months prior to the current study. COMPARISON: CR (PELVIS, ) 05/05/2022 4:06 AM RADIATION DOSE METRICS: Total DLP (mGy-cm): 489.25 FINDINGS: Lungs: The visualized lung bases demonstrate diffuse interstitial fibrosis and atelectatic changes. Liver: The liver is normal in size and homogeneous density. There are multiple simple appearing liver hypodensities as large as 9 mm that remains stable from the comparison CT scan of the chest of 12/28/2021, but show mild increase in size when compared to the CTA of the chest of 01/25/2019. The largest lesion in the left lobe of the liver increased from 7-9 mm in the interim. Gallbladder and bile ducts: The gallbladder is normal. No gallstones are identified. Pancreas: The pancreas is normal. Spleen: The spleen is normal in size and density. Adrenal glands: There is a 10 mm nodule in the left adrenal with density measurements of 4-7 Hounsfield units consistent with the left adrenal adenoma. Kidneys and ureters: There is no hydronephrosis. There are multiple vascular calcifications in the left renal hilum. There are no renal or obstructive ureteral calculi. Stomach and bowel: There is no evidence of small bowel or colonic obstruction. There is moderate fecal stasis throughout the colon, including the rectosigmoid. Appendix: No evidence of appendicitis. Intraperitoneal space: No free air. No significant fluid collection. Vasculature: There is extensive atherosclerotic calcification of the abdominal aorta and iliac branches. There is a small aneurysm of the infrarenal abdominal aorta measuring 3.9 x 3.8 cm in the axial plane. There are no para-aortic fluid collections to suggest leakage. Lymph nodes: No enlarged retroperitoneal or mesenteric lymph nodes. Urinary bladder: The bladder shows normal contour. Reproductive: Unremarkable as visualized. Bones/joints: There is diffuse osseous demineralization. No acute fracture is identified. At L5-S1, there is degenerative disc disease and mild grade 1 retrolisthesis associated with moderate bilateral neural foraminal narrowing. Probable old injury at left anterior inferior iliac spine versus subchondral cyst. Soft tissues: Unremarkable. CT/CT abdomen pelvis wo con [id number] IMPRESSION: 1. Multiple simple appearing liver hypodensities show minimal change from the comparison study of 01/25/2019 are no significant interval change from 12/28/2021. These are likely benign. 2. A probable 2 mm left adrenal adenoma. 3. Moderate fecal stasis throughout the colon, including the rectosigmoid. 4. 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 No evidence of leakage. 5. Degenerative disc disease and retrolisthesis at L5-S1 associated with moderate bilateral neural foraminal narrowing. COMMENTS: Consistent with the [place] [employer]'s Incidental Findings Committee white paper (J Am Missy Radiol 2017): For any incidental adrenal lesion greater than or equal to 1 cm but less than or equal to 4 cm classified in this report as benign, likely benign, or containing fat (including classification as an adenoma or myelolipoma), no follow-up imaging is recommended per consensus recommendations based on imaging criteria. Further lab evaluation could be pursued if warranted based on clinical findings.
[2022-05-05 04:02] VITALS: BP 157/67; PULSE 105; RESP 18; TEMP 37.3; O2SAT 91; BMI 23.6
--- NOTE | 2022-05-05 04:02 | ED_ITS ---
HPI - Abdominal Pain General: Chief Complaint: Extremity Injury, Lower Stated Complaint: Left Hip Pain Time Seen by Provider: 05/05/22 03:56 Source: patient and EMS Mode of arrival: EMS Limitations: no limitations History of Present Illness: 71-year-old female states she been having left- sided hip pain that started tonight states pain is severe in nature and much worse with movement or trying to walk states her pain is a 8 out of 10 denies any injury she has had a previous fracture to her left hip denies any radiation of her pain currently. Associated Symptoms: Denies chills, dysuria and fever(s) Review of Systems Const: Denies: fever(s), chills, body aches or change in appetite Eyes: Denies: blurry vision or eye discomfort ENMT: Denies: throat pain or dental pain Card: Denies: chest pain Resp: Denies: dyspnea GI: Reports: abdominal pain : Denies: dysuria Musc: Reports: extremity pain Skin/Breast: Denies: rash Neuro: Denies: headache(s) Psych: Denies: depression Bernard/Lymph: Denies: easy bruising All/Imm: Denies: urticaria PFSH ED PFSH: Medical History Allergic rhinitis Asthma Chronic obstructive pulmonary disease COPD (chronic obstructive pulmonary disease) DVT (deep venous thrombosis) Essential (primary) hypertension -VSS; continue to monitor -continue oral antihypertensives Hypoxia Moderate aortic stenosis -Noted moderate on echo; also noted to have EF=65%, no RWMA, G1DD, moderate pulmonary HTN, mild-moderate TR Nicotine addiction Paroxysmal A-fib -telemetry monitoring; rate controlled -continue cardizem -ASA on hold as on heparin drip; was not on other AC previously Pulmonary nodule Subcapital fracture of left femur -secondary to mechanical fall -s/p bipolar arthroplasty by Dr. Good; POD # 3 -EBL-100 mL -PT/OT evaluations appreciated -strict fall precautions, pain control as needed -bowel regimen -Sherman catheter removed Surgical History H/O tubal ligation Family History Father CAD (coronary artery disease) Mother Cancer Social History Smoking and tobacco status: current every day smoker (4/5 cigs) cigarettes Packs smoked per day: 1.5 Years cigarettes smoked: 50 [ Other cigarette details: Started at age 13 years] Quit status (tobacco): considering quitting Smoking risk assessment/counseling performed?: Yes Alcohol intake: never Counseling given: No Counseling given: No Lives independently: Yes Household members: none Marital status: Current occupational status: retired History of recent travel: No Current gender identity: Female Physical Exam Const: COMMON NORMALS: no acute distress, patient oriented x3 and healthy appearing HENMT: COMMON NORMALS: normocephalic and atraumatic HEAD & SCALP: normocephalic and atraumatic Eye: COMMON NORMALS: Equal, round and reactive pupils present and EOMs intact bilaterally PUPIL: Yes Equal, round and reactive pupils present Neck/C-Spine: COMMON NORMALS: full ROM and supple Chest: COMMONS NORMALS: normal inspection of the chest and normal palpation of entire chest wall Resp: COMMON NORMALS: normal respiratory effort, No retractions, No use of accessory muscles and clear to auscultation bilaterally AUSCULTATION: clear to auscultation bilaterally Cardio: COMMON NORMALS: regular rate, regular rhythm and No murmurs present (Cardio) RATE: regular rate RHYTHM: regular rhythm GI: COMMON NORMALS: Normal to inspection, nondistended, normoactive bowel sounds present, Soft to palpation, non-tender and no masses PALPATION: Yes Soft to palpation Extremity: COMMON NORMALS: normal to inspection and full ROM NARRATIVE EXTREMITY EXAM: Pain with range of motion of left leg and her left hip no tenderness to her back Neuro: COMMON NORMALS: patient oriented x3, moves all extremities and no focal motor deficits Psych: COMMON NORMALS: mental status grossly normal, Normal thought process present and cooperative THOUGHT PROCESS: Normal thought process present Skin: COMMON NORMALS: no rashes or lesions noted and no wounds GENERAL SKIN EXAM: no rashes or lesions noted Course Vital Signs: Vital signs: Vital Signs Temperature 99.2 F 05/05/22 04:02 Pulse Rate 62 05/05/22 09:18 Respiratory Rate 16 05/05/22 06:06 Blood Pressure 126/56 05/05/22 09:18 Pulse Oximetry 94 05/05/22 09:18 Oxygen Delivery Me thod 05/05/22 08:00 Oxygen Flow Rate 5 05/05/22 08:00 MDM - Abdominal Pain Medical Decision Making Patient presents with left hip pain her CT does show a fracture to the left anterior iliac spine likely refracture from an old avulsion injury from her osteopenia she is well-appearing here she is wanting to go home we will place her on pain meds she is to restrict activity and weight bear as tolerated and follow-up with orthopedics. Lab Data 05/05/22 04:00 05/05/22 04:00 Labs/Radiology: Radiology Impressions Abdomen/Pelvis CT 05/05/22 04:01 IMPRESSION: 1. Multiple simple appearing liver hypodensities show minimal change from the comparison study of 01/25/2019 are no significant interval change from 12/28/2021. These are likely benign. 2. A probable 2 mm left adrenal adenoma. 3. Moderate fecal stasis throughout the colon, including the rectosigmoid. 4. 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 No evidence of leakage. 5. Degenerative disc disease and retrolisthesis at L5-S1 associated with moderate bilateral neural foraminal narrowing. COMMENTS: Consistent with the [employer] [place] [employer]'s Incidental Findings Committee white paper (J Am Missy Radiol 2017): For any incidental adrenal lesion greater than or equal to 1 cm but less than or equal to 4 cm classified in this report as benign, likely benign, or containing fat (including classification as an adenoma or myelolipoma), no follow-up imaging is recommended per consensus recommendations based on imaging criteria. Further lab evaluation could be pursued if warranted based on clinical findings. ADDENDUM: 05/05/2224 Findings were discussed with at 05/05/2022 6:22 AM ORGANIZATION DEVELOPMENT CONSULTANT. Hip CT 05/05/22 04:01 IMPRESSION: 1. Status post left hip arthroplasty that remains in stable, near anatomic alignment. 2. No evidence of aseptic loosening of the orthopedic hardware. 3. No aggressive bone lesion is identified. 4. There is fracture of the left anterior inferior iliac spine of unknown acuity. This may represent refractured at the site of an old avulsion injury in the setting of severe osteopenia, but clinical correlation is necessary as to pain and tenderness over this area. ADDENDUM: 05/05/22626 Findings were discussed with Dr. Cunha at 05/05/2022 6:23 AM ORGANIZATION DEVELOPMENT CONSULTANT. Anterior inferior iliac spine hypodensity is again visualized on the CT scan of the abdomen pelvis and may represent an old injury or an old degenerative subchondral cyst. Hip/Pelvis X-Ray 05/05/22 04:04 IMPRESSION: 1. Status post left hip arthroplasty that appears in near anatomic alignment. 2. No evidence of fracture or aseptic loosening. 3. No aggressive bone lesions. Laboratory Results WBC 10.1 10^3/uL (4.0-10.0) H 05/05/22 04:00 RBC 4.17 10^6/uL (4.1-5.3) 05/05/22 04:00 Hgb 10.9 g/dL (11.5-15.3) L 05/05/22 04:00 Hct 36.6 % (37.0-47.0) L 05/05/22 04:00 MCV 87.8 fl (81-99) 05/05/22 04:00 MCH 26.1 pg (28.0-34.0) L 05/05/22 04:00 MCHC 29.8 g/dL (30.0-36.0) L 05/05/22 04:00 RDW 13.4 % (12.1-15.1) 05/05/22 04:00 Plt Count 187 10^3/cmm (130-400) 05/05/22 04:00 MPV 10.5 fL (7.4-10.4) H 05/05/22 04:00 Neut % (Auto) 78.9 % 05/05/22 04:00 Lymph % (Auto) 8.3 % 05/05/22 04:00 Rosebud % (Auto) 10.4 % 05/05/22 04:00 Eos % (Auto) 1.4 % 05/05/22 04:00 Baso % (Auto) 0.6 % 05/05/22 04:00 Neut # (Auto) 7.94 10^3/uL (1.8-7.7) H 05/05/22 04:00 Lymph # (Auto) 0.8 10^3/uL (0.8-4.8) 05/05/22 04:00 Rosebud # (Auto) 1.1 10^3/uL (0.2-0.9) H 05/05/22 04:00 Eos # (Auto) 0.1 10^3/uL (0.0-0.8) 05/05/22 04:00 Baso # (Auto) 0.1 10^3/uL (0.0-0.1) 05/05/22 04:00 Nucleated RBC % (auto) 0 % 05/05/22 04:00 Nucleated RBCs # 0.0 /100WBC 05/05/22 04:00 ESR 10 mm/hr (0-15) 05/05/22 04:00 Sodium 137 mmol/L (136-145) 05/05/22 04:00 Potassium 3.8 mmol/L (3.5-5.1) 05/05/22 04:00 Chloride 100 mmol/L (98-107) 05/05/22 04:00 Carbon Dioxide 27 mmol/L (22-29) 05/05/22 04:00 Anion Gap 13.8 (5-19) 05/05/22 04:00 BUN 19 mg/dL (8-23) 05/05/22 04:00 Creatinine 0.5 mg/dL (0.5-0.9) 05/05/22 04:00 GFR Calculation 122.0 mL/min (90-130) 05/05/22 04:00 Glucose 112 mg/dL (65-115) 05/05/22 04:00 Calculated Osmolality 287 mOsm/kg (285-295) 05/05/22 04:00 Calcium 8.9 mg/dL (8.5-10.5) 05/05/22 04:00 Total Bilirubin 0.3 mg/dL (0.15-1.2) 05/05/22 04:00 AST 15 U/L (0-32) 05/05/22 04:00 ALT 11 U/L (0-33) 05/05/22 04:00 Alkaline Phosphatase 84 U/L (35-105) 05/05/22 04:00 C-Reactive Protein 11.3 mg/L (0.0-4.9) H 05/05/22 04:00 Total Protein 6.6 g/dL (6.6-8.7) 05/05/22 04:00 Albumin 3.9 g/dL (3.5-5.2) 05/05/22 04:00 Globulin 2.7 g/dL (1.3-4.6) 05/05/22 04:00 Lipase 20 U/L (13-60) 05/05/22 04:00 Discharge Plan Discharge Patient Disposition: Home Clinical Impression: Hip pain, left, Closed fracture of left anterior inferior iliac spine Condition: Stable Prescriptions: New hydrocodone-acetaminophen 5-325 mg tablet 1 tab PO Q6H PRN (Reason: pain) Qty: 14 0RF No Action albuterol sulfate [ProAir HFA] 90 mcg/actuation HFA aerosol inhaler 2 puff INHALATION Q6H PRN (Reason: Shortness Of Breath) albuterol sulfate 2.5 mg /3 mL (0.083 %) solution for nebulization 2.5 mg inhalation Q6H PRN (Reason: bronchospasm) Qty: 180 5RF alprazolam 0.25 mg tablet 0.25 mg PO BID PRN temazepam 15 mg capsule 15 mg PO BEDTIME PRN (Reason: sleep) Rx Instructions: 1-2 caps as needed at HS (DME) Home oxygen See Rx Instructions .Route .MEDSUPPLY Qty: 1 0RF Rx Instructions: give machine and supplies. 3 L per NC at rest/ sleep and with activity Eliquis 2.5 mg tablet 2.5 mg PO BID Qty: 60 3RF fluticasone propionate 50 mcg/actuation spray,suspension 1 spray intranasal Q12H Qty: 16 4RF prednisone 5 mg tablet 5 mg PO BID@06,13 Qty: 60 3RF diltiazem HCl 120 mg tablet 120 mg PO BID Trelegy Ellipta 100-62.5-25 mcg blister with device 1 inh INHALATION DAILY@09 furosemide 20 mg tablet 20 mg PO QAM Discharge Orders: Discharge ED (Routine); Ordered 05/05/22 Ordered By: Citlali Parker Referrals: Cristopher Parikh DO [Physician] - 1-3 days Thompson Zuluaga MD [Primary Care Provider] - Discharge Diet: Advance as tolerated Discharge Activity: Limit activity as instructed and Use walker/crutches as instructed Patient Instructions: Hip Pain (ED), Avulsion Fracture (ED), Opioid Safety Coding Level of Care Code ED Air Gun Operator for Chg Fwd Exam Comprehensive
--- NOTE | 2022-05-05 04:04 | XRR_ITS ---
PROCEDURE INFORMATION: Exam: XR Left Hip Exam date and time: 05/05/2022 4:06 AM Age: 71 years old Clinical indication: Prior surgery; Surgery type: Epifanio; Patient HX: Patient stats sudden onset of severe left hip pain after bending over to berry picker a book at home. History of lung cancer. TECHNIQUE: Imaging protocol: Radiologic exam of the Left hip. Views: 2 or 3 views hip with pelvis when performed. COMPARISON: CR (PELVIS, ) 02/02/2020 3:05 PM FINDINGS: Tubes, catheters and devices: There is no evidence of aseptic loosening of the orthopedic hardware. Bones/joints: A left bipolar hip arthroplasty seen in stable, near anatomic alignment. There is diffuse osseous demineralization. No acute fracture is identified. There are no aggressive bone lesions. Soft tissues: Unremarkable. Gastrointestinal tract: There is moderate fecal burden in the rectosigmoid. Vasculature: Atherosclerotic vascular calcifications are seen in the left femoral artery. XR/XR hip LT 2-3V wo/w pel* [id number] IMPRESSION: 1. Status post left hip arthroplasty that appears in near anatomic alignment. 2. No evidence of fracture or aseptic loosening. 3. No aggressive bone lesions.
[2022-05-05] MEDS: sodium chloride 0.9% 1,000 ML 999 ML IV (04:10)
[2022-05-05 04:14] LABS: Basophils # 0.1 10^3/uL (0.0-0.1); Basophils % 0.6 %; Eosinophils # 0.1 10^3/uL (0.0-0.8); Eosinophils % 1.4 %; Hematocrit 36.6 % (37.0-47.0); Hemoglobin 10.9 g/dL (11.5-15.3); Lymphocytes # 0.8 10^3/uL (0.8-4.8); Lymphocytes % 8.3 %; Mean Corpuscular HGB Conc 29.8 g/dL (30.0-36.0); Mean Corpuscular Hemoglobin 26.1 pg (28.0-34.0); Mean Corpuscular Volume 87.8 fl (81-99); Mean Platelet Volume 10.5 fL (7.4-10.4); Monocytes # 1.1 10^3/uL (0.2-0.9); Monocytes % 10.4 %; Neutrophils # 7.94 10^3/uL (1.8-7.7); Neutrophils % 78.9 %; Nucleated Red Blood Cells % 0 %; Platelet Count 187 10^3/cmm (130-400); Red Blood Count 4.17 10^6/uL (4.1-5.3); Red Cell Distribution Width 13.4 % (12.1-15.1); White Blood Count 10.1 10^3/uL (4.0-10.0)
[2022-05-05 04:19] LABS: Erythrocyte Sedimentation Rate 10 mm/hr (0-15)
[2022-05-05 04:32] LABS: Alanine Aminotransferase 11 U/L (0-33); Albumin Level 3.9 g/dL (3.5-5.2); Alkaline Phosphatase 84 U/L (35-105); Anion Gap 13.8 (5-19); Aspartate Amino Transferase 15 U/L (0-32); Blood Urea Nitrogen 19 mg/dL (8-23); C Reactive Protein 11.3 mg/L (0.0-4.9); Calcium 8.9 mg/dL (8.5-10.5); Carbon Dioxide 27 mmol/L (22-29); Chloride 100 mmol/L (98-107); Globulin 2.7 g/dL (1.3-4.6); Glucose 112 mg/dL (65-115); Lipase 20 U/L (13-60); Osmolality Calculated 287 mOsm/kg (285-295); Potassium 3.8 mmol/L (3.5-5.1); Sodium 137 mmol/L (136-145); Total Bilirubin 0.3 mg/dL (0.15-1.2); Total Protein 6.6 g/dL (6.6-8.7)
[2022-05-05] MEDS: HYDROmorphone 1 mg/mL INJ 1 mL 0.5 MG IVP (04:44)
[2022-05-05 04:58] VITALS: BP 147/59; PULSE 95; RESP 16; O2SAT 92
[2022-05-05 06:06] VITALS: BP 146/64; PULSE 99; RESP 16; O2SAT 92
--- NOTE | 2022-05-05 06:22 | PC.NURSE ---
Pt assisted to wheelchair for pt comfort. Pt did not want to be in bed anymore. Pt stood and pivot to chair with 1 person assist. Tolerated well. Verified for Dr. Parker that pt had walker at home. Pt states she has walker, cane, and someone is bringing her a wheelchair. Pt reports being more comfortable now.
--- NOTE | 2022-05-05 07:55 | PC.NURSE ---
PT sitting in wheelchair in room waiting for family. pt requested pain medication physician notified.
[2022-05-05 08:00] VITALS: PULSE 86; O2SAT 90
[2022-05-05] MEDS: acetaminophen 500 mg Tablet 1000 MG PO (08:16)
--- NOTE | 2022-05-05 09:14 | DCPLANNER ---
Addendum entered by Christi Estrada 05/19/22 14:11: Patient came back to the ER, was admitted to hospital will follow up when discharged. Original Note: progressive care manager had message to schedule a follow up appointment for patient with ortho. progressive care manager sent patients information to the front office staff at ortho. Patients information will be printed and reviewed. Clinic will call patient with appointment information.
[2022-05-05 09:18] VITALS: BP 126/56; PULSE 62; O2SAT 94
== END 2022-05-05 09:20 | disposition home or self-care (01) ==
PROVIDERS: Emergency Provider Emergency Medicine; PCP Family Medicine
DX: S32.392A Other fracture of left ilium, initial encounter for closed fracture (principal); Z79.01 Long term (current) use of anticoagulants; Z96.642 Presence of left artificial hip joint; J44.9 Chronic obstructive pulmonary disease, unspecified; I10 Essential (primary) hypertension; F17.210 Nicotine dependence, cigarettes, uncomplicated; X58.XXXA Exposure to other specified factors, initial encounter
CPT/HCPCS: 73502; 73700; 74176; 80053; 83690; 85025; 85651; 86140; 96361; 96374; 99285; J1170; J7030

== ENCOUNTER 2022-05-10 13:58 | Inpatient (IN) | payer MEDICARE, SELFPAY ==
[2022-05-10] VITALS (71 sets, daily range): BP systolic 98–146; BP diastolic 48–94; PULSE 65–88; RESP 15–26; TEMP 36.6; O2SAT 63–100
--- NOTE | 2022-05-10 14:08 | W.ED.GENADLT ---
HPI - General Adult General: Chief complaint: ER Hold Stated complaint: SOB, cant walk, SI Time Seen by Provider: 05/10/22 14:08 Limitations: altered mental status History of Present Illness: Ms Murphy is a 72-year-old lady with history of COPD with chronic hypoxic respiratory failure, history of DVT presenting to the emergency department for altered mental status. She was seen in the emergency department on 05/05 and diagnosed with a iliac spine avulsion fracture. Since that time family notes that she has had a marked decline with possible jaundice and altered mental status in addition to rambling and suicidal ideation. History is otherwise limited by patient's mental status. Review of Systems General: Reports: ROS unobtainable due to mental status PFSH ED PFSH: Medical History Allergic rhinitis Asthma Chronic obstructive pulmonary disease COPD (chronic obstructive pulmonary disease) DVT (deep venous thrombosis) Essential (primary) hypertension -VSS; continue to monitor -continue oral antihypertensives Hypoxia Moderate aortic stenosis -Noted moderate on echo; also noted to have EF=65%, no RWMA, G1DD, moderate pulmonary HTN, mild-moderate TR Nicotine addiction Paroxysmal A-fib Pulmonary nodule Subcapital fracture of left femur -secondary to mechanical fall -s/p bipolar arthroplasty by Dr. Good; POD # 3 -EBL-100 mL -PT/OT evaluations appreciated -strict fall precautions, pain control as needed -bowel regimen -Sherman catheter removed Surgical History H/O tubal ligation Family History Father CAD (coronary artery disease) Mother Cancer Social History Smoking and tobacco status: current every day smoker (4/5 cigs) cigarettes Packs smoked per day: 1.5 Years cigarettes smoked: 50 [ Other cigarette details: Started at age 13 years] Quit status (tobacco): considering quitting Smoking risk assessment/counseling performed?: Yes Alcohol intake: never Counseling given: No Counseling given: No Lives independently: Yes Household members: none Marital status: Current occupational status: retired History of recent travel: No Current gender identity: Female Physical Exam Const: COMMON NORMALS: alert GENERAL APPEARANCE: cooperative and well developed HENMT: COMMON NORMALS: normocephalic and atraumatic HEAD & SCALP: normocephalic and atraumatic Eye: COMMON NORMALS: conjunctivae normal CONJUNCTIVA: Yes conjunctivae normal SCLERA: sclerae normal Neck/C-Spine: COMMON NORMALS: supple GENERAL: Yes trachea midline Resp: EFFORT & INSPECTION: Yes tachypneic AUSCULTATION: wheezes and diminished lung sounds Cardio: COMMON NORMALS: regular rate and regular rhythm RATE: regular rate RHYTHM: regular rhythm GI: COMMON NORMALS: Soft to palpation PALPATION: Yes Soft to palpation and No Tenderness to palpation present (GI) Extremity: GENERAL: Yes normal exam except as noted and No edema Neuro: COMMON NORMALS: moves all extremities SENSORIUM/ORIENTATION: Yes alert and Yes Orientation impaired OTHER: Limited neurologic exam secondary to patient's mental status without gross focal neurologic deficits appreciated. Course Vital Signs: Vital signs: Vital Signs Temperature 98.3 F 05/21/22 11:39 Pulse Rate 67 05/21/22 11:39 Respiratory Rate 18 05/21/22 11:39 Blood Pressure 109/57 05/21/22 11:39 Pulse Oximetry 93 05/21/22 11:39 Oxygen Delivery Me thod 05/21/22 11:39 Oxygen Flow Rate 3 05/21/22 08:00 [facility] - General Adult Medical Decision Making 72-year-old lady presenting with respiratory symptoms as well as altered mental status. Patient with new oxygen requirement and somewhat ill appearance on exam. Exam otherwise as above. A broad differential considered and testing ordered as appropriate based on clinical likelihood and morbidity/mortality associated conditions. EKG notable for sinus rhythm with abnormal P waves, mild irregularity, normal intervals and axis, no STEMI. Labs notable for leukocytosis, normocytic anemia, normal platelet count. Metabolic panel with hyponatremia and evidence of intravascular dehydration. Mild transaminitis is present. Ammonia is elevated. CK elevated. Initial troponin elevated with negative range 2-hour delta. ABG without clear abnormality to explain mental status or respiratory status though patient is on nonrebreather mask for ABG and still hypoxemic. No UTI. Chest x-ray demonstrates no lobar consolidation or pneumothorax, bibasilar prominence is present. CT head demonstrates diffuse chronic white matter disease without acute intracranial hemorrhage or mass. CT chest abdomen pelvis is limited, COPD present and CAD, there is a hematoma from prior fall, on physical exam I do not identify evidence of cellulitis. Patient treated in the emergency department with RT treatment, steroids, aspirin, anxiolysis, pain control and antibiotics for concern over sepsis picture empirically. Most likely etiology of patient's symptoms is multifactorial including COPD exacerbation, concern over underlying infection, respiratory failure, altered mental status, rhabdo myelitis cyst, NSTEMI. The results of ED evaluation were discussed with the patient and family including plan for admission due to requirement for level of care not available if discharged to prevent significant worsening/deterioration. Patient and family agreeable with plan. Discussed with hospitalist service who was agreeable to admit patient. Medical Records I reviewed the patient's medical records. Lab Data I reviewed the patient's lab results. 05/21/22 03:49 05/17/22 04:28 Radiology Impressions Chest/Abdomen/Pelvis CT 05/10/22 15:02 IMPRESSION: 1. Technically limited but negative CT angiogram of the chest. No evidence of acute pulmonary embolism to major branches of the pulmonary vascular tree. 2. COPD with upper lobe emphysematous changes and scattered subsegmental atelectasis mid to lower lung zones. 3. Mild cardiomegaly with diffuse calcification of coronary arteries. IMPRESSION: 1. Small left ilopsoas hematoma possibly spontaneous in origin. Please correlate with appropriate coagulation factors. 2. Diffuse atherosclerotic changes abdominal aorta with 3.8 cm mid abdominal aortic aneurysm. 3. Retroverted uterus with mild expansion of the endometrial cavity that should be further assessed on follow-up nonemergent pelvic ultrasound exam for possible endometrial pathology. Head CT 05/10/22 15:02 IMPRESSION: Diffuse, chronic white matter microvascular changes and indistinct lacunar infarcts both basal ganglia of indeterminate age which could be further assessed on MRI examination clinically warranted. Chest X-Ray 05/13/22 06:00 IMPRESSION: Previously demonstrated lung opacities somewhat more extensive than on the previous examination. Abdomen/Pelvis CT 05/15/22 13:58 IMPRESSION: 1. Stable small iliopsoas hematoma within the left iliac fossa. 2. 3.8 cm calcified abdominal aortic aneurysm unchanged. 3. Additional chronic findings as above. Laboratory Results WBC 12.4 10^3/uL (4.0-10.0) H 05/10/22 14:10 RBC 4.08 10^6/uL (4.1-5.3) L 05/10/22 14:10 Hgb 10.6 g/dL (11.5-15.3) L 05/10/22 14:10 Hct 34.9 % (37.0-47.0) L 05/10/22 14:10 MCV 85.5 fl (81-99) 05/10/22 14:10 MCH 26.0 pg (28.0-34.0) L 05/10/22 14:10 MCHC 30.4 g/dL (30.0-36.0) 05/10/22 14:10 RDW 14.0 % (12.1-15.1) 05/10/22 14:10 Plt Count 161 10^3/cmm (130-400) 05/10/22 14:10 MPV 11.2 fL (7.4-10.4) H 05/10/22 14:10 Neut % (Auto) 89.9 % 05/10/22 14:10 Lymph % (Auto) 2.7 % 05/10/22 14:10 [place] % (Auto) 6.5 % 05/10/22 14:10 Eos % (Auto) 0.2 % 05/10/22 14:10 Baso % (Auto) 0.3 % 05/10/22 14:10 Neut # (Auto) 11.17 10^3/uL (1.8-7.7) H 05/10/22 14:10 Lymph # (Auto) 0.3 10^3/uL (0.8-4.8) L 05/10/22 14:10 [place] # (Auto) 0.8 10^3/uL (0.2-0.9) 05/10/22 14:10 Eos # (Auto) 0.0 10^3/uL (0.0-0.8) 05/10/22 14:10 Baso # (Auto) 0.0 10^3/uL (0.0-0.1) 05/10/22 14:10 Nucleated RBC % (auto) 0 % 05/10/22 14:10 Nucleated RBCs # 0.0 /100WBC 05/10/22 14:10 Specimen Type Arterial 05/10/22 14:20 Sample Site Radial, left 05/10/22 14:20 ABG pH 7.42 (7.35-7.45) 05/10/22 14:20 ABG pCO2 36.5 mmHg (35-45) 05/10/22 14:20 ABG pO2 76.3 mmHg (80.0-100.0) L 05/10/22 14:20 ABG HCO3 23.6 mmol/L (22-26) 05/10/22 14:20 ABG O2 Saturation 96.4 05/10/22 14:20 ABG Base Excess -0.6 mmol/L (-2.0-2.0) 05/10/22 14:20 Duncan Test Pos 05/10/22 14:20 A-a O2 Gradient 3.5 mmHg (5-10) L 05/10/22 14:20 Hematocrit 32.0 % (37-47) L 05/10/22 14:20 Hgb O2 Saturation 93.7 % (95-100) L 05/10/22 14:20 Carboxyhemoglobin 2.4 %THgb (0.4-20.1) 05/10/22 14:20 Methemoglobin 0.4 % (0.4-1.5) 05/10/22 14:20 Total Hemoglobin 10.4 g/dL (12-16) L 05/10/22 14:20 Sodium 129.0 mmol/L (131-143) L 05/10/22 14:20 Potassium 4.3 mmol/L (3.5-5.0) 05/10/22 14:20 Glucose 141.0 mg/dL (70-115) H 05/10/22 14:20 Ionized Calcium 1.1 mmol/L (1.1-1.4) 05/10/22 14:20 O2 Delivery Device Nrb 05/10/22 14:20 O2 Liters/Min 15.0 % 05/10/22 14:20 Line Inspector ID [place] 05/10/22 14:20 Sodium 123 mmol/L (136-145) L 05/10/22 14:10 Potassium 4.4 mmol/L (3.5-5.1) 05/10/22 14:10 Chloride 90 mmol/L (98-107) L 05/10/22 14:10 Carbon Dioxide 23 mmol/L (22-29) 05/10/22 14:10 Anion Gap 14.4 (5-19) 05/10/22 14:10 BUN 31 mg/dL (8-23) H 05/10/22 14:10 Creatinine 0.6 mg/dL (0.5-0.9) 05/10/22 14:10 GFR Calculation Not Reportable 05/10/22 14:10 Glucose 132 mg/dL (65-115) H 05/10/22 14:10 Calculated Osmolality 264 mOsm/kg (285-295) L 05/10/22 14:10 Lactate 2.1 mmol/L (0.5-2.2) 05/10/22 14:10 Calcium 8.4 mg/dL (8.5-10.5) L 05/10/22 14:10 Phosphorus 2.8 mg/dL (2.5-4.5) 05/10/22 14:10 Magnesium 2.5 mg/dL (1.7-2.3) H 05/10/22 14:10 Total Bilirubin 0.5 mg/dL (0.15-1.2) 05/10/22 14:10 AST 106 U/L (0-32) H 05/10/22 14:10 ALT 68 U/L (0-33) H 05/10/22 14:10 Alkaline Phosphatase 114 U/L (35-105) H 05/10/22 14:10 Ammonia 52 umol/L (11-51) H 05/10/22 14:42 Creatine Kinase 1325 U/L (26-192) H* 05/10/22 14:10 Troponin T Baseline 396 ng/L (0-10) H* 05/10/22 14:10 Troponin T 120 Minute 354.1 ng/L (0-10) H 05/10/22 16:12 Delta Troponin T -41.9 ABS# (0-10) L 05/10/22 16:12 Troponin T Hi Sens 6Hr 279.7 ng/L (0-10) H 05/10/22 20:15 Troponin T Hi Sens 6Hr Delta -116.3 ng/L (0-12) L 05/10/22 20:15 C-Reactive Protein 245.6 mg/L (0.0-4.9) H 05/10/22 14:10 NT-Pro-B Natriuret Pep 4923 pg/mL (0-125) H 05/10/22 14:10 Total Protein 6.7 g/dL (6.6-8.7) 05/10/22 14:10 Albumin 3.3 g/dL (3.5-5.2) L 05/10/22 14:10 Globulin 3.4 g/dL (1.3-4.6) 05/10/22 14:10 Lipase 38 U/L (13-60) 05/10/22 14:10 Procalcitonin 8.44 ng/mL (0-0.5) H 05/10/22 14:10 TSH 2.50 uIU/mL (0.27-4.20) 05/10/22 14:10 Urine Color Dark yellow (Yellow) 05/10/22 15:37 Urine Appearance Clear (CLEAR) 05/10/22 15:37 Urine pH 5 (5-7) 05/10/22 15:37 Ur Specific [place] 1.010 (1.005-1.030) 05/10/22 15:37 Urine Protein Neg (Negative) 05/10/22 15:37 Urine Glucose (UA) Norm (Normal) 05/10/22 15:37 Urine Ketones Negative (Negative) 05/10/22 15:37 Urine Blood Neg (Negative) 05/10/22 15:37 Urine Nitrate Negative (Negative) 05/10/22 15:37 Urine Bilirubin 1+ (Negative) H 05/10/22 15:37 Urine Urobilinogen 1 mg/dL (Negative) H 05/10/22 15:37 Ur Leukocyte Esterase Negative (Negative) 05/10/22 15:37 Salicylates < 0.3 mg/dL (3-10) L 05/10/22 14:10 Urine Opiates Screen Positive ng/mL (Negative) H 05/10/22 15:38 Acetaminophen < 5.0 ug/mL (10-30) L 05/10/22 14:10 Ur Barbiturates Screen Negative ng/mL (Negative) 05/10/22 15:38 Ur Phencyclidine Scrn Negative ng/mL (Negative) 05/10/22 15:38 Ur Amphetamines Screen Negative ng/mL (Negative) 05/10/22 15:38 U Benzodiazepines Scrn Positive ng/mL (Negative) H 05/10/22 15:38 Urine Cocaine Screen Negative ng/mL (Negative) 05/10/22 15:38 U Marijuana (THC) Screen Negative ng/mL (Negative) 05/10/22 15:38 Ethyl Alcohol < 10 mg/dL (0-10) 05/10/22 14:10 Coronavirus 229E (PCR) Not detected (NOT DETECT) 05/10/22 14:39 Hepatitis A IgM Ab Non-reactive (Nonreactive) 05/10/22 05:15 Hep Bs Antigen Non-reactive (Nonreactive) 05/10/22 05:15 Hep B Core IgM Ab Non-reactive (Nonreactive) 05/10/22 05:15 Hepatitis C Antibody Non-reactive (Nonreactive) 05/10/22 05:15 Human Metapneumovir PCR Not detected (NOT DETECT) 05/10/22 16:49 Entero/Rhino (PCR) Detected (NOT DETECT) A 05/10/22 16:49 SARS-CoV-2 (PCR) Not detected (NOT DETECT) 05/10/22 14:39 Critical Care Time Critical Care Time: Critical Care Time: Yes Total Critical Care Time: 35 Attestation: Due to a high probability of clinically significant, possibly life threatening deterioration, the patient required my highest level of attention and preparedness to intervene emergently and I personally spent this critical care time directly and personally managing the patient. This critical care time included obtaining a history; examining the patient; pulse oximetry; ordering and review of laboratory and imaging studies; arranging urgent treatment with development of a management plan; evaluation of patient's response to treatment; frequent reassessment; and, discussions with other providers as applicable. It was exclusive of separately billable procedures. Primary system involved is respiratory Discharge Plan Discharge Patient Disposition: Admitted As Inpatient Admit Provider: Anoop Larkin Clinical Impression: Acute exacerbation of chronic obstructive airways disease, Acute alteration in mental status, Leukocytosis, Normocytic anemia, Hyponatremia, Rhabdomyolysis, Non-ST elevation TN (NSTEMI) Condition: Stable Coding Level of Care Code ED House Wirer Helper for Nan Chaudhary
--- NOTE | 2022-05-10 14:14 | XRR_ITS ---
PROCEDURE INFORMATION: Exam: XR Chest Exam date and time: 05/10/2022 2:30 PM Age: 72 years old Clinical indication: Shortness of breath; Additional info: SOB TECHNIQUE: Imaging protocol: Radiologic exam of the chest. Views: 1 view. COMPARISON: CR XR chest 1V portable [id number] 01/25/2022 9:31 AM FINDINGS: Lungs: Lung volumes are somewhat decreased likely in part due to patient rotation and poor inspiratory effort. There are mildly accentuated interstitial markings at the lung bases that may represent combination of hypoventilatory changes with minor atelectatic and bibasilar interstitial lung changes. Remaining lung bonds aerated and clear. Pleural spaces: Unremarkable. No pleural effusion. No pneumothorax. Heart/Mediastinum: Unremarkable. No cardiomegaly. Bones/joints: Unremarkable for age. XR/XR chest 1V portable [id number] IMPRESSION: Mildly accentuated bibasilar lung markings as discussed above otherwise negative chest.
--- NOTE | 2022-05-10 14:15 | ECG_ITS ---
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 Measurements Intervals [place] Rate: 80 P: 0 [place]: 0 QRS: 81 QRSD: 82 T: 28 QT: 365 QTc: 423 Interpretive Statements ATRIAL FIBRILLATION MODERATE ST DEPRESSION [0.05+ mV ST DEPRESSION] Compared to ECG 01/25/2022 12:15:18 ST (T wave) deviation now present Ectopic atrial rhythm no longer present Myocardial infarct finding no longer present Electronically Signed On 05-11-2022 7:08:19 STRUCTURES ENGINEER by Octaviano Castro M.D. [id number]
[2022-05-10 14:31] LABS: Basophils % 0.3 %; Eosinophils % 0.2 %; Hematocrit 34.9 % (37.0-47.0); Hemoglobin 10.6 g/dL (11.5-15.3); Lymphocytes # 0.3 10^3/uL (0.8-4.8); Lymphocytes % 2.7 %; Mean Corpuscular HGB Conc 30.4 g/dL (30.0-36.0); Mean Corpuscular Volume 85.5 fl (81-99); Mean Platelet Volume 11.2 fL (7.4-10.4); Monocytes # 0.8 10^3/uL (0.2-0.9); Monocytes % 6.5 %; Neutrophils # 11.17 10^3/uL (1.8-7.7); Neutrophils % 89.9 %; Nucleated Red Blood Cells % 0 %; Platelet Count 161 10^3/cmm (130-400); Red Blood Count 4.08 10^6/uL (4.1-5.3); White Blood Count 12.4 10^3/uL (4.0-10.0)
[2022-05-10 14:31] LABS: ABG PCO2 36.5 mmHg (35-45); ABG PH Result 7.42 (7.35-7.45); Alveolar-Arterial Oxygen Gradi 3.5 mmHg (5-10); Base Excess ABG -0.6 mmol/L (-2.0-2.0); Blood Gas Allen Test Pos; Blood Gas Operator Identificat WALCI; Blood Gas Sample Site Radial, left; Blood Gas Sample Type Arterial; Carboxyhemoglobin 2.4 %THgb (0.4-20.1); HCO3 ABG 23.6 mmol/L (22-26); HGB O2 Sat 93.7 % (95-100); Ionized Calcium Level - ABG 1.1 mmol/L (1.1-1.4); Methemoglobin 0.4 % (0.4-1.5); Oxygen Device NRB; Oxygen Saturation ABG 96.4; PO2 ABG 76.3 mmHg (80.0-100.0); Potassium Level - ABG 4.3 mmol/L (3.5-5.0); Total Hemoglobin 10.4 g/dL (12-16)
[2022-05-10] MEDS: albuterol 2.5 mg/3 mL Neb INHALATION (14:40)
[2022-05-10] MEDS: ipratropium 0.5 mg/2.5 mL Neb INHALATION (14:40)
[2022-05-10 14:43] LABS: Lactate (Lactic Acid level) 2.1 mmol/L (0.5-2.2)
[2022-05-10] MEDS: doxycycline 100 MG in sodium chloride 0.9% (plus) 100 ML IV (14:48)
[2022-05-10 14:53] LABS: NT Pro B Type Natriuretic Pept 4923 pg/mL (0-125); Procalcitonin 8.44 ng/mL (0-0.5)
[2022-05-10 14:57] LABS: Troponin(5th) Baseline 396 ng/L (0-10)
--- NOTE | 2022-05-10 15:02 | CTR_ITS ---
PROCEDURE INFORMATION: Exam: CT Head Without Contrast Exam date and time: 05/10/2022 4:31 PM Age: 72 years old Clinical indication: Altered mental status/memory loss; Age related cognitive decline; Additional info: AMS TECHNIQUE: Imaging protocol: Computed tomography of the head without contrast. Radiation optimization: All CT scans at this facility use at least one of these dose optimization techniques: automated exposure control; mA and/or kV adjustment per patient size (includes targeted exams where dose is matched to clinical indication); or iterative reconstruction. Other protocol: This patient has received 5 known CTs and 0 known cardiac nuclear medicine studies in the 12 months prior to the current study. COMPARISON: No relevant prior studies available. RADIATION DOSE METRICS: Total DLP (mGy-cm): 1049.38 FINDINGS: Brain: No intracranial hemorrhage. No mass effect, edema or midline shift. Cortical sulci are unremarkable for age. There are vague areas of decreased attenuation within the periventricular white matter likely secondary to chronic microvascular changes. There are indistinct hypodensities within the basal ganglia bilaterally some which may represent lacunar infarcts of indeterminate age. Cerebral ventricles: No ventriculomegaly. Paranasal sinuses: Visualized sinuses are unremarkable. No fluid levels. Mastoid air cells: Visualized mastoid air cells are well aerated. Bones/joints: Unremarkable. No acute fracture. Soft tissues: Unremarkable. CT/CT head wo con* [id number] IMPRESSION: Diffuse, chronic white matter microvascular changes and indistinct lacunar infarcts both basal ganglia of indeterminate age which could be further assessed on MRI examination clinically warranted.
--- NOTE | 2022-05-10 15:02 | CTR_ITS ---
PROCEDURE INFORMATION: Exam: CTA Chest With Contrast Exam date and time: 05/10/2022 4:33 PM Age: 72 years old Clinical indication: Abdominal tenderness; Dyspnea; Additional info: SOB, hypoxia, abd pain, AMS TECHNIQUE: Imaging protocol: Computed tomographic angiography of the chest with contrast. 3D rendering (Not supervised by radiologist): MIP and/or 3D reconstructed images were created by the technologist. Radiation optimization: All CT scans at this facility use at least one of these dose optimization techniques: automated exposure control; mA and/or kV adjustment per patient size (includes targeted exams where dose is matched to clinical indication); or iterative reconstruction. Contrast material: OMNI 350; Contrast volume: 150 ml; Contrast route: INTRAVENOUS (IV); Other protocol: This patient has received 6 known CTs and 0 known cardiac nuclear medicine studies in the 12 months prior to the current study. COMPARISON: CT angio chest PE protcl [id number] 02/02/2020 6:02 AM RADIATION DOSE METRICS: Total DLP (mGy-cm): 1289.19 FINDINGS: Pulmonary arteries: Main pulmonary trunk, right and left pulmonary arteries, interlobar branches and 1st order segmental branches are adequately opacified without filling defects or other evidence of acute pulmonary embolism. However more distal subsegmental branches cannot be adequately assessed due to technical limitations of the study. Aorta: Diffuse atherosclerotic changes with calcification of the thoracic aorta and great vessels. No aortic aneurysm. Lungs: Diffuse upper lobe emphysematous changes. Scattered subsegmental atelectasis mid to lower lung zones. Pleural spaces: Unremarkable. No pneumothorax. No pleural effusion. Heart: Heart is mildly enlarged. Diffuse calcification of coronary arteries. No significant pericardial effusion. Lymph nodes: Scattered small mediastinal lymph nodes and mediastinal calcifications likely secondary to old granulomatous disease. Bones/joints: Accentuated thoracic kyphosis in part secondary to chronic wedge-shaped compression fracture of T5. Soft tissues: Unremarkable. COMMENTS: In the absence of a history or active diagnosis of lung cancer, it is recommended that this patient with emphysema be evaluated for enrollment in a low dose CT lung cancer screening program. PROCEDURE INFORMATION: Exam: CT Abdomen And Pelvis With Contrast Exam date and time: 05/10/2022 4:33 PM Age: 72 years old Clinical indication: Abdominal tenderness; Dyspnea; Additional info: SOB, hypoxia, abd pain, AMS TECHNIQUE: Imaging protocol: Computed tomography of the abdomen and pelvis with contrast. Radiation optimization: All CT scans at this facility use at least one of these dose optimization techniques: automated exposure control; mA and/or kV adjustment per patient size (includes targeted exams where dose is matched to clinical indication); or iterative reconstruction. Contrast material: OMNI 350; Contrast volume: 150 ml; Contrast route: INTRAVENOUS (IV); Other protocol: This patient has received 6 known CTs and 0 known cardiac nuclear medicine studies in the 12 months prior to the current study. COMPARISON: CT abdomen pelvis wo con [id number] 05/05/2022 4:31 AM RADIATION DOSE METRICS: Total DLP (mGy-cm): 0.01 FINDINGS: Limitations: Study is technically limited due to motion artifact. Liver: Normal. No mass. Gallbladder and bile ducts: Normal. No calcified stones. No ductal dilation. Pancreas: Unremarkable. Main pancreatic duct is not significantly dilated. Spleen: Normal. No splenomegaly. Adrenal glands: Normal. No mass. Kidneys and ureters: Normal. No hydronephrosis. Stomach and bowel: Mild-moderate degree of retained stool throughout the large bowel. Appendix: No evidence of appendicitis. Intraperitoneal space: Unremarkable. No free air. No significant fluid collection. Vasculature: Abdominal aorta and iliac vessels are diffusely calcified. 3.8 cm fusiform aneurysm mid abdominal aorta. Lymph nodes: Unremarkable. No enlarged lymph nodes. Urinary bladder: There is a Sherman catheter balloon within the urinary bladder which is collapsed and difficult to further assess. Reproductive: Uterus is retroverted. There is mild expansion of the endometrial cavity which in view of patient's age should be further assessed on pelvic ultrasound exam. There is a 3 cm right ovarian cyst likely benign. Bones/joints: Moderate degenerative changes L5-S1. Metallic artifact emanating from left hip prosthesis. No acute bony abnormalities. Soft tissues: There is a small, acute retroperitoneal hematoma involving the lower left iliopsoas muscle within the left iliac fossa which is mildly enlarged and heterogeneous compared to the right. CT/CT angio chest w abd pel w con IMPRESSION: 1. Technically limited but negative CT angiogram of the chest. No evidence of acute pulmonary embolism to major branches of the pulmonary vascular tree. 2. COPD with upper lobe emphysematous changes and scattered subsegmental atelectasis mid to lower lung zones. 3. Mild cardiomegaly with diffuse calcification of coronary arteries. IMPRESSION: 1. Small left ilopsoas hematoma possibly spontaneous in origin. Please correlate with appropriate coagulation factors. 2. Diffuse atherosclerotic changes abdominal aorta with 3.8 cm mid abdominal aortic aneurysm. 3. Retroverted uterus with mild expansion of the endometrial cavity that should be further assessed on follow-up nonemergent pelvic ultrasound exam for possible endometrial pathology.
[2022-05-10 15:05] LABS: Alanine Aminotransferase 68 U/L (0-33); Albumin Level 3.3 g/dL (3.5-5.2); Alkaline Phosphatase 114 U/L (35-105); Anion Gap 14.4 (5-19); Aspartate Amino Transferase 106 U/L (0-32); Blood Urea Nitrogen 31 mg/dL (8-23); C Reactive Protein 245.6 mg/L (0.0-4.9); Calcium 8.4 mg/dL (8.5-10.5); Carbon Dioxide 23 mmol/L (22-29); Chloride 90 mmol/L (98-107); Globulin 3.4 g/dL (1.3-4.6); Glucose 132 mg/dL (65-115); Lipase 38 U/L (13-60); Magnesium 2.5 mg/dL (1.7-2.3); Osmolality Calculated 264 mOsm/kg (285-295); Phosphorus 2.8 mg/dL (2.5-4.5); Potassium 4.4 mmol/L (3.5-5.1); Sodium 123 mmol/L (136-145); Total Bilirubin 0.5 mg/dL (0.15-1.2); Total Protein 6.7 g/dL (6.6-8.7)
[2022-05-10 15:06] LABS: Ammonia 52 umol/L (11-51)
[2022-05-10 15:07] LABS: Acetaminophen < 5.0 ug/mL (10-30); Alcohol Level < 10 mg/dL (0-10); Salicylate < 0.3 mg/dL (3-10)
[2022-05-10 15:08] LABS: Creatine Phosphokinase 1325 U/L (26-192)
--- NOTE | 2022-05-10 15:15 | PC.NURSE ---
PT STATED GIVE ME A SHOT TO KILL ME PLEASE FAMILY STATED THAT SHE HAS BEEN REQUESTING THIS FOR THE PAST MONTH
[2022-05-10] MEDS: aspirin 81 mg Chew Tablet 324 MG PO (15:19)
[2022-05-10] MEDS: haloperidol inj 5 mg/mL INJ 1 mL 1 MG IVP (15:19)
[2022-05-10] MEDS: morphine 4 mg/mL SDV 1 mL 2 MG IVP (15:20)
[2022-05-10 15:45] LABS: Add Urine Microscopic? NO; Charge for UA Resulting for Rev
[2022-05-10 16:04] LABS: Bilirubin Urine 1+ (Negative); Blood Urine Neg (Negative); Glucose Urine UA Norm (Normal); Ketones Urine Negative (Negative); Leukocyte Esterase Urine Negative (Negative); Nitrate Urine Negative (Negative); Protein Urine Neg (Negative); Urine Appearance Clear (CLEAR); Urine Color Dark Yellow (Yellow); Urobilinogen Urine 1 mg/dL (Negative); pH Urine 5 (5-7)
[2022-05-10] MEDS: piperacillin-tazobactam 3.375 GM in sodium chloride 0.9% (plus) 50 ML IV (16:07)
[2022-05-10 16:09] LABS: Amphetamines Screen Urine Negative (Negative); Barbiturates Screen Urine Negative (Negative); Benzodiazepines Screen Urine Positive (Negative); Cocaine Screen Urine Negative (Negative); Opiate Screen Urine Positive (Negative); PCP Screen Urine Negative (Negative); THC Screen Urine Negative (Negative)
--- NOTE | 2022-05-10 16:15 | ECG_ITS ---
[facility] Test Date: 2022-05-10 Pat Name: Lisset Murphy Department: Room: Gender: Female Continuous Drier Operator: : 1950 Requested By: Damián Foley Order Number: [id number] Bette MD: Geraldine Jade M.D. Measurements Intervals [place] Rate: 74 P: -55 IN: 150 QRS: 77 QRSD: 98 T: 39 QT: 400 QTc: 444 Interpretive Statements ECTOPIC ATRIAL RHYTHM WITH OCCASIONAL SUPRAVENTRICULAR PREMATURE COMPLEXES MODERATE T-WAVE ABNORMALITY, CONSIDER ANTERIOR ISCHEMIA [-0.1+ mV T-WAVE IN V3/V4] Compared to ECG 05/10/2022 14:22:00 Ectopic atrial rhythm now present T-wave abnormality now present Possible ischemia now present Atrial fibrillation no longer present ST (T wave) deviation no longer present Electronically Signed On 05-10-2022 22:03:04 SAW STRAIGHTENER by Geraldine Jade M.D. [id number]
[2022-05-10] MEDS: iohexol 350 mg/mL 500 mL Btl (per mL) IV (16:22)
[2022-05-10 16:28] LABS: Adenovirus Not Detected (NOT DETECT); Chlamydia Pneumoniae Not Detected (NOT DETECT); Coronavirus 229E,HKU1,NL63,OC4 Not Detected (NOT DETECT); Human Metapneumovirus Not Detected (NOT DETECT); Human Rhinovirus/Enterovirus Detected (NOT DETECT); Influenza A Not Detected (NOT DETECT); Influenza A H1 Not Detected (NOT DETECT); Influenza A H1-2009 Not Detected (NOT DETECT); Influenza A H3 Not Detected (NOT DETECT); Influenza B Not Detected (NOT DETECT); Mycoplasma Pneumoniae Not Detected (NOT DETECT); Parainfluenza Virus Type 1 Not Detected (NOT DETECT); Parainfluenza Virus Type 2 Not Detected (NOT DETECT); Parainfluenza Virus Type 3 Not Detected (NOT DETECT); Parainfluenza Virus Type 4 Not Detected (NOT DETECT); Respiratory Syncytial Virus A Not Detected (NOT DETECT); Respiratory Syncytial Virus B Not Detected (NOT DETECT); SARS-COV-2 Not Detected (NOT DETECT)
[2022-05-10 16:47] LABS: Troponin 5 2HR 354.1 ng/L (0-10)
[2022-05-10] MEDS: vancomycin 1,500 MG/300 ML PIGGYBACK 200 MG IV (16:49)
[2022-05-10 16:50] LABS: Human Metapneumovirus Not Detected (NOT DETECT); Human Rhinovirus/Enterovirus Detected (NOT DETECT); Results from Genmark
--- NOTE | 2022-05-10 19:11 | P.HP_ITS ---
Providers/Chief Complaint Primary Care Provider: Thompson Zuluaga MD Chief Complaint: SOB, cant walk, SI History of Present Illness Pleasant 72-year-old lady with advanced COPD, currently on 5 L of oxygen, also on 5 mg prednisone, with history of DVT, on anticoagulation with 2.5 mg Eliquis twice daily, history of atrial fibrillation, additionally history of radiation therapy due to suspected lung cancer nodule, without suspicious nodules on repeat recent imaging, moderate aortic stenosis, smoking addiction, remote history of left femoral fracture and repair, had a visit to ER on 05/05 due to left hip pain with finding of left anterior iliac spine fracture which was suspected old avulsion injury from osteopenia, however, since returning home has persistently been weak, since then pretty much has not gotten out of bed, has had poor appetite, additionally developing lower extremity edema, worsening dyspnea, also for a while has been having worsening and severe depression with recurrent suicidal ideation. As per family she has been making confused statements, with on and off lucidity. She appears generally weak, falls asleep easily which also has been the case over the last week or so. She is able to tell me she is in the hospital, tells me the year is 1922. She tells me that she is feeling hungry. She and family deny her having any headache, has not had any photophobia, no fevers. Tells me that she feels weak. She feels like she has not eaten in 3 days, although per family she has eaten in the last few days but certainly her oral intake was meager. In ER she is found to have slightly worse hypoxia than usual requiring 6 L of oxygen. With findings suspicious of acute congestive heart failure, additionally noted to have leukocytosis 12.4, did come back positive on viral panel for entero-/rhinovirus. Negative COVID PCR. Troponin baseline elevated to 396. EKG with atrial fibrillation. Repeat EKG with moderate T wave abnormality. Repeat troponin decreasing down to 354.1. She denies any chest pain and this is an incidental finding. Family deny chest pain or pressure in recent days. NT proBNP is 4923. Creatinine 0.6, BUN 31. Sodium is 123. Urinalysis unremarkable. Urine tox screen positive for benzodiazepines, opiates both of which are among her prescribed medications. Imaging in ER with CT head shows diffuse chronic white matter microvascular changes and indistinct lacunar infarcts of both basal ganglia of indeterminate age which could be further assessed on MRI. Chest x-ray was performed as well. CT chest abdomen and pelvis without PE and major pulmonary vascular branches. COPD upper lobe emphysematous changes and scattered subsegmental atelectasis mid to lower lung zones. Mild cardiomegaly with diffuse calcification of coronary arteries. CT abdomen is positive for small left iliopsoas hematoma possibly spontaneous in origin. Diffuse atherosclerotic changes abdominal aorta with 3.8 cm mid abdominal aortic aneurysm. Retroverted uterus with mild expansion of the endometrial cavity that should be further assessed on follow-up nonemergent pelvic ultrasound exam for possible endometrial pathology. Blood cultures were collected. She received empiric antibiotics with Zosyn, vancomycin, doxycycline. Dose of Solu-Medrol. Breathing treatment. She and family deny any recent falls or any prolonged time spent on hard surfaces. With regards to suicidal ideation she states she has been contemplating this for a while. She tells me she has no reason to live. She thinks that if she were to end her life she would either take an overdose of her medications or use her pistol. As per her son and [id number] as discussed together with the patient she also has previously expressed and documented wishes of limited goals of care overall, with DNR status, no aggressive interventions but would be agreeable to medical treatments occluding antibiotics, transfusion if needed, etc. Review of Systems General: Reports: Other (Limited due to mental status) Const: Reports: change in appetite, fatigue and other (Weak); Denies: fever(s) or chills Eyes: Denies: change in vision, eye discomfort or eye redness ENMT: Denies: throat pain, oral sores or ear or mastoid pain Card: Reports: edema, swelling of feet/ankles and dyspnea on exertion; Denies: chest pain or pre-syncope Resp: Reports: dyspnea and productive cough; Denies: hemoptysis GI: Denies: abdominal pain, nausea, vomiting, diarrhea, constipation, hematochezia or melena : Denies: flank pain, urinary frequency or hematuria Musc: Reports: joint pain (Lef thip pain); Denies: back pain, joint swelling or joint redness Skin/Breast: Denies: rash or new lesions Neuro: Reports: difficulty walking and confusion; Denies: headache(s), numbness in extremities, weakness in extremities, dizziness or seizure-like activity Psych: Reports: depression, hopelessness and suicidal ideation Endo: Denies: polyuria or polydipsia Bernard/Lymph: Denies: easy bleeding or tender lymph nodes All/Imm: Denies: urticaria or tongue swelling Medications/Allergies Home Medications Medication Instructions Recorded Confirmed Last Taken Type albuterol sulfate 90 mcg/actuation 2 puff inhalation Q6H PRN 06/20/19 05/10/22 01/25/22 History aerosol inhaler (ProAir HFA) Shortness Of Breath furosemide 20 mg tablet 20 mg PO QAM 02/01/20 05/10/22 05/09/22 History albuterol sulfate 2.5 mg/3 mL 2.5 mg (3 mL) inhalation Q6H PRN 04/22/21 05/10/22 01/25/22 Rx (0.083 %) solution for nebulization bronchospasm #180 mL diltiazem HCl 120 mg tablet 120 mg PO BID 06/16/21 05/10/22 05/10/22 History fluticasone fur. 100 mcg-umeclid 1 inh inhalation DAILY@09 06/16/21 05/10/22 01/25/22 History 62.5 mcg-vilant 25 mcg inhalat.powder (Trelegy Ellipta) apixaban 2.5 mg tablet (Eliquis) 2.5 mg PO BID #60 tabs 01/01/22 05/10/22 05/10/22 Rx alprazolam 0.25 mg tablet 0.25 mg PO BID PRN Anxiety 01/25/22 05/10/22 Unknown History temazepam 15 mg capsule 15 mg PO BEDTIME PRN sleep 01/25/22 05/10/22 Unknown History Home oxygen #1 ea 02/02/22 05/10/22 Unknown Rx fluticasone propionate 50 1 spray intranasal Q12H #16 grams 03/09/22 05/10/22 Unknown Rx mcg/actuation nasal spray,suspension hydrocodone 5 mg-acetaminophen 325 1 tab PO Q6H PRN pain #14 tabs 05/05/22 05/10/22 05/10/22 Rx mg tablet prednisone 5 mg tablet 5 mg PO DAILY 02/06/23 02/06/23 02/05/23 History Allergies Allergy/AdvReac Type Severity Reaction Status Date / Time shrimp Allergy ADR-Nausea Uncoded 02/05/22 09:10 PFSH Acute PFSH: Medical History Allergic rhinitis Asthma Chronic obstructive pulmonary disease COPD (chronic obstructive pulmonary disease) DVT (deep venous thrombosis) Essential (primary) hypertension -VSS; continue to monitor -continue oral antihypertensives Hypoxia Moderate aortic stenosis -Noted moderate on echo; also noted to have EF=65%, no RWMA, G1DD, moderate pulmonary HTN, mild-moderate TR Nicotine addiction Paroxysmal A-fib Pulmonary nodule Subcapital fracture of left femur -secondary to mechanical fall -s/p bipolar arthroplasty by Dr. Good; POD # 3 -EBL-100 mL -PT/OT evaluations appreciated -strict fall precautions, pain control as needed -bowel regimen -Sherman catheter removed Surgical History H/O tubal ligation Family History Father CAD (coronary artery disease) Mother Cancer Social History Smoking and tobacco status: current every day smoker (4/5 cigs) cigarettes Packs smoked per day: 1.5 Years cigarettes smoked: 50 [ Other cigarette details: Started at age 13 years] Quit status (tobacco): considering quitting Smoking risk assessment/counseling performed?: Yes Alcohol intake: never Counseling given: No Counseling given: No Lives independently: Yes Household members: none Marital status: Current occupational status: retired History of recent travel: No Current gender identity: Female Vitals/I&O/Wt Last Vital Signs Temp 97.8 F 05/10/22 14:08 Pulse 73 05/10/22 18:40 Resp 22 H 05/10/22 18:40 BP 128/68 05/10/22 18:40 Pulse Ox 96 05/10/22 18:40 O2 Del Method 05/10/22 17:55 O2 Flow Rate 6 05/10/22 17:55 05/10/22 05/10/22 05/10/22 06:59 14:59 22:59 Intake Total 450 / 450 Balance 450 / 450 Physical Exam Narrative: Accompanied by her [id number], later joined by her son. Const: GENERAL APPEARANCE: cooperative OTHER: Able to answer some questions, follows directions, but does get confused easily. HENMT: COMMON NORMALS: oropharynx normal Neck/C-Spine: COMMON NORMALS: no JVD Resp: COMMON NORMALS: normal respiratory effort and clear to auscultation bilaterally AUSCULTATION: clear to auscultation bilaterally Cardio: COMMON NORMALS: no JVD, regular rhythm, S1 normal heart sound present, S2 normal heart sound present and No murmurs present (Cardio) RHYTHM: regular rhythm HEART SOUNDS: S1 normal heart sound present and S2 normal heart sound present GI: COMMON NORMALS: Normal to inspection, nondistended, normoactive bowel sounds present, Soft to palpation and non-tender PALPATION: Yes Soft to palpation Extremity: COMMON NORMALS: no joint enlargement GENERAL: Yes edema (1+) Neuro: COMMON NORMALS: moves all extremities; negative for patient oriented x3 SENSORIUM/ORIENTATION: Yes alert Psych: MOOD & AFFECT: Yes depressed mood Skin: COMMON NORMALS: no rashes or lesions noted GENERAL SKIN EXAM: no rashes or lesions noted Urinary Catheter Management: Sherman: Cath Placed During This Visit: yes Reason for Continuing Indwelling Catheter: Required Immobilization for Trauma or Surgery or Anesthesia Urinary Catheter Date of Insertion: 05/10/22 Urinary Catheter Time of Insertion: 17:13 Data 05/10/22 14:10 05/10/22 14:10 Micro: Microbiology 05/10/22 14:42 Blood Culture - Preliminary Blood SPECIMEN COLLECTED 05/10/22 14:35 Blood Culture - Preliminary Blood SPECIMEN COLLECTED A&P Assessment and plan (1) Acute encephalopathy: Multifactorial acute encephalopathy including metabolic with hyponatremia with noted sodium 123, as well as acute illness with entero-/rhinovirus infection, worsening respiratory failure, acute CHF, possible recent NJ, cannot exclude additional small recent CVA with noted prior multiple basal ganglia CVA on review of CT head findings. Could possibly be related to other causes as well. Additional history obtained from her [id number] and son. Discussed findings with both. Additional assessment and management of underlying conditions as below. (2) Hyponatremia: Noted sodium 123. Difficult to tell etiology as she does have some it appears acute CHF, with some hypervolemia. Hyponatremia may be due to this. Although she also has had poor oral intake recently. May be low solute hyponatremia or combination. Regular diet, encourage oral intake as tolerating. Treat CHF as below. Follow-up chemistry ordered. (3) Retroperitoneal hematoma: Noted acute retroperitoneal iliopsoas hematoma. Patient and family deny any recent falls. Unclear whether this may be somehow related to the prior fracture or whether she may have had a fall which was unwitnessed and not remembered by her as she appears to have some confusion and some memory difficulties at least at the moment with acute encephalopathy. Discussed risk of expansion of hematoma. Anticoagulation held. Cannot give antiplatelets at this time. Requested follow-up blood counts. Monitor vital signs/hemodynamics. Her overall goals of care are limited. Consider follow-up reimaging to assess for any further expansion while here in the hospital. (4) Non-ST elevation NJ (NSTEMI): Possible NSTEMI, possibly recently. Appears to have downtrending elevated troponin, 396, 2 hours 354. Complete troponin EKG trend. Does have atrial fibrillation although is not currently in RVR. Maintaining blood pressure. Only mildly more hypoxic than usual. Noted extensive calcification of coronary arteries on CT incidentally seen. She denies chest pain. Assess TTE. Monitor on telemetry. Currently unable to start antiplatelets. Cautious beta-lexi, statin. (5) Acute CHF: Acute CHF, type unknown. Does have prior history of moderate aortic stenosis. Previously EF normal. Possibly diastolic. With lower extremity edema, dyspnea on exertion. Unclear if may have had NSTEMI recently as above. Lasix 20 mg IV daily for now. Cautious diuresis due to also concomitant apparent rhabdomyolysis. Monitor renal function. Blood pressures. ZENY, weights. Assess TTE. (6) Rhabdomyolysis: Elevated CK, unclear cause. 1325, unclear if could be related to recent NSTEMI, or possibly psoas hematoma. Patient and family deny any recent falls or time spent on the floor. (7) Acute exacerbation of chronic obstructive airways disease: Appears possibly mild exacerbation of COPD with somewhat worse hypoxia in ER compared to usual requiring 6 L, normally on 5 L at all times at home. Continue oxygen support. Scheduled neb treatments. Inhaled steroid. Prednisone, will increase dose to 15 mg. (8) Leukocytosis: Possibly secondary to rhino enterovirus, but cannot exclude other causes. Discussed also concerned with her family regarding iliopsoas hematoma of unclear origin, as well as aortic aneurysm. Consideration of possible mycotic aneurysm, possible bacteremia. Blood cultures have been collected, follow-up. For now continue empiric antibiotic coverage. Otherwise not obvious pneumonia. Does have perhaps mild COPD exacerbation. Urine nonsuggestive UTI. No GI complaints no suggestion of skin infection or other obvious site of infection. (9) Enteroviral infection: Isolation. Supportive measures. Support oxygenation. Additional treatment of mild COPD exacerbation as above. No vomiting or diarrhea, monitor for change in symptoms. Has been generally weak, with poor appetite. Regular diet as tolerating. Fall precautions. (10) Normocytic anemia: Blood counts appreciated. Normal MCV, numbers appear very similar to recent during visit in ER on 05/05. Wrist Worsening anemia with iliopsoas retroperitoneal hematoma. Hold anticoagulation, no antiplatelets, no DVT prophylaxis other than SCD. Requested follow-up blood counts. (11) Old cerebrovascular accident (CVA) without late effect: Noted multiple prior bilateral basal ganglia CVA. Discussed with her and family. Discussed currently off anticoagulation at risk of CVA secondary to atrial fibrillation. Goals of care certainly very limited. For now monitor blood pressures. Will not at the moment undertake additional work-up but will need to follow-up with regards to this outpatient. Certainly discussed possibility of additional minor stroke contributing to her recent symptoms, although does not appear to necessarily have obvious focal abnormality. (12) Severe depression: Severe depression with feeling of hopelessness, loss of will to live, no suicidal ideation. States at home could take either overdose on medications or use her pistol to end her life. Discussed with her psychiatry consultation, she is agreeable, will be requesting. Discussed with her family. Currently she is very weak, unable to get up from bed, without access to means and without immediate plans for suicide. (13) Suicidal ideation: As above (14) Goals of care, counseling/discussion: Discussing with her and her family, goals of care overall are limited. She has prior stated wishes for DNR as well as advanced directives. She would be okay with receiving medical treatment including antibiotics, blood transfusion if needed, etc. Certainly no aggressive measures. (15) Nicotine addiction: Nicotine replacement as needed (16) AAA (abdominal aortic aneurysm): Incidentally seen on CT. Discussed with her and family. Will need to follow- up. Additional consideration with her overall constitutional symptoms, leukocytosis, as well as iliopsoas hematoma, off possible mycotic aneurysm. Blood cultures collected, follow-up. (17) Paroxysmal A-fib: Currently in sinus rhythm, continue Cardizem. Hold anticoagulation due to iliopsoas hematoma. Monitor on telemetry. (18) Transaminitis: Secondary to rhabdomyolysis. Possibly component of CHF. Follow-up liver parameters. Assess TTE. Hepatitis panel. (19) Lesion of liver: Multiple lesions of liver appear unchanged from 2019. Follow-up outpatient. Plan History of lung nodule suspected for malignancy, status post radiation therapy. Discussed findings with ER physician, nursing staff. Reviewed ER and outpatient pulmonology note. Attestations Medical Necessity Statement*: Admission of over 2 midnights is anticipated for assessment and management of low acute encephalopathy, retroperitoneal hematoma, acute CHF, NSTEMI, severe depression with suicidal ideation, additional multiple comorbidities as above. Coding Level of Care Code 53743 High MDM includes risk/complexity, reviewing previous or external records, reviewing test results, ordering lab/other test(s), speaking with independent historian (other than patient) and discussion of management or test(s) w/ other healthcare professional and High Time for a total of 110 minutes, includes reviewing past or interval history, examining/interviewing patient, placing orders, counseling patient/family/other support, discussing plan of care with staff, communicating with other healthcare providers, documenting encounter and coordinating care Diagnoses Acute encephalopathy G93.40 Hyponatremia E87.1 Retroperitoneal hematoma K66.1 Non-ST elevation NJ (NSTEMI) I21.4 Acute CHF I50.9 Rhabdomyolysis M62.82 Acute exacerbation of chronic obstructive airways disease J44.1 Leukocytosis D72.829 Enteroviral infection B34.1 Normocytic anemia D64.9 Old cerebrovascular accident (CVA) without late effect Z86.73 Severe depression F32.2 Suicidal ideation R45.851 Goals of care, counseling/discussion Z71.89 Nicotine addiction F17.200 AAA (abdominal aortic aneurysm) I71.40 Paroxysmal A-fib I48.0 Transaminitis R74.01 Lesion of liver K76.9
--- NOTE | 2022-05-10 20:15 | ECG_ITS ---
[facility] Test Date: 2022-05-10 Pat Name: Lisset Murphy Department: Room: Gender: Female Packer Insulation: : 1950 Requested By: Damián Foley Order Number: [id number] Bette MD: Geraldine Jade M.D. Measurements Intervals [place] Rate: 75 P: -62 NM: 141 QRS: 77 QRSD: 90 T: 47 QT: 390 QTc: 436 Interpretive Statements ECTOPIC ATRIAL RHYTHM MODERATE T-WAVE ABNORMALITY, CONSIDER ANTERIOR ISCHEMIA [-0.1+ mV T-WAVE IN V3/V4] Compared to ECG 05/10/2022 17:00:40 No significant changes Electronically Signed On 05-10-2022 20:54:21 POST FRAMER by Geraldine Jade M.D. [id number]
[2022-05-10 20:52] LABS: Troponin 5 6HR 279.7 ng/L (0-10)
--- NOTE | 2022-05-10 21:58 | USCV_ITS ---
Katherine Lisset Age: 72 Gender: F : 1950 Exam Date: 05/10/2022 22:50 Ordering Phys: Anoop Larkin MD Technologist: RAIZA [place]am [place] [facility] [place] Indication: chronic hypoxia, COPD, hx Takotsubo cardiomyopathy. AMS. BP: 114 / 53 HR: 65 Rhythm: Sinus Technical Quality: Adequate MEASUREMENTS (Male / Female) Normal Values 2D ECHO LV Diastolic Diameter PLAX 3.2 cm 4.2 - 5.9 / 3.9 - 5.3 cm LV Systolic Diameter PLAX 2.3 cm IVS Diastolic Thickness 1.3 cm 0.6 - 1.0 / 0.6 - 0.9 cm IVS Systolic Thickness 1.6 cm LVPW Diastolic Thickness 1.5 cm 0.6 - 1.0 / 0.6 - 0.9 cm LVPW Systolic Thickness 1.5 cm LVOT Diameter 1.9 cm LV Ejection Fraction 2D Teich 56.6 % LV Ejection Fraction MOD 2C 61.6 % LV Ejection Fraction 2C AL 62.7 % LA Diameter 3.7 cm LA Width 4.4 cm LA Height 6.2 cm RA Width 5.0 cm RA Height 5.3 cm Aorta at Sinotubular Diameter 2.3 cm IVC Diameter 2.2 cm M-MODE Aortic Annulus Diameter 3.1 cm LA Ao Ratio MM 1.2 MV E Point Septal Separation 0.9 cm DOPPLER AV Peak Velocity 134.7 cm/s LVOT Peak Velocity 72.0 cm/s AV Area Cont Eq vti 2.3 cm squared AV Area Cont Eq pk 1.6 cm squared MV Area PHT 3.0 cm squared Mitral E to A Ratio 0.7 MV E' Velocity 111.0 cm/s TR Peak Velocity 336.7 cm/s TR Peak Gradient 45.3 mmHg TV Peak E Velocity 42.0 cm/s Right Atrial Pressure 5.0 mmHg Pulmonary Artery Systolic Pressu 50.3 mmHg PV Peak Velocity 106.0 cm/s RV Acceleration Time 0.1 s RV Ejection Time 0.3 s RV AcT/ET 0.2 FINDINGS Left Ventricle Left ventricle is normal in size. LV systolic function is normal with EF of 55 to 60%. No regional wall motion abnormalities are seen. Grade 1 diastolic dysfunction Right Ventricle Normal in size and function Right Atrium Normal in size Left Atrium Dilated Mitral Valve Mild mitral annular calcification is seen. Trace mitral regurgitation. Aortic Valve Aortic valve is thickened. no significant aortic stenosis seen Tricuspid Valve Mild tricuspid regurgitation. RVSP is 50-55mmHg. This is consistent with moderate pulmonary hypertension Pulmonic Valve Not well visualized Pericardium Normal Aorta Normal in size IVC Dilated CONCLUSIONS LV subcutaneous normal with EF of 55 to 60% Grade 1 diastolic dysfunction Left atrial dilation Trace mitral regurgitation Mild tricuspid regurgitation. Moderate pulmonary hypertension Compared to prior echocardiogram from 02/02/2020, no significant changes are seen. Octaviano Castro MD (Electronically Signed) Final Date: 11 May 2022 09:02 S
--- NOTE | 2022-05-10 21:58 | USCV_ITS ---
Lisset Murphy Age: 72 Gender: F : 1950 Exam Date: 05/10/2022 23:30 Ordering Phys: Anoop Larkin MD Technologist: RAIZA [place]am [place] [facility] [place]ication: prior history of DVT. assess for new DVT. chronic hypoxia. hx COPD. HISTORY: prior history of DVT. assess for new DVT. chronic hypoxia. hx COPD. PROCEDURES: Venous duplex imaging was performed in bilateral lower extremities. The following venous structures were evaluated: common femoral vein, profunda vein, proximal portion of the greater saphenous vein, superficial femoral vein, and the popliteal vein. In addition, the posterior tibial veins were evaluated. Serial compression, augmentation maneuvers, and spectral Doppler flow evaluation were performed, which were normal, with noted highly pulsatile venous compartments bilaterally. Bilaterally, the common femoral, superficial femoral, profunda femoral, popliteal, posterior tibial, and greater saphenous veins were identified and interrogated in the standard fashion. These veins were found to be easily compressible with spontaneous blood flow. No evidence of acite thrombus noted. Also noted that bilated superficial femoral veins are small in calibre, probably the result of prior DVTs. CONCLUSIONS No evidence of right lower extremity DVT. No evidence of left lower extremity DVT. Small caliber femoral veins due to chronic DVT moni Baca MD (Electronically Signed) Final Date: 11 May 2022 11:06 S
[2022-05-10] MEDS: cefTRIAXone 1,000 MG in sodium chloride 0.9% (plus) 50 ML 100 MG IV (22:32)
[2022-05-10] MEDS: predniSONE 10 mg Tablet 15 MG PO (22:38)
[2022-05-11] VITALS (30 sets, daily range): BP systolic 106–154; BP diastolic 57–98; PULSE 61–110; RESP 14–22; TEMP 36.9; O2SAT 86–100; BMI 22.2
[2022-05-11] MEDS: ipratropium-albuterol 3 mL Neb INHALATION ×5 (02:37→23:05)
[2022-05-11] MEDS: vancomycin 1,250 MG/250 ML PIGGYBACK 250 MG IV ×2 (04:56→17:10)
[2022-05-11 05:24] LABS: Basophils % 0.1 %; Hematocrit 32.7 % (37.0-47.0); Lymphocytes # 0.2 10^3/uL (0.8-4.8); Lymphocytes % 2.3 %; Mean Corpuscular HGB Conc 30.6 g/dL (30.0-36.0); Mean Corpuscular Volume 85.2 fl (81-99); Mean Platelet Volume 11.6 fL (7.4-10.4); Monocytes # 0.4 10^3/uL (0.2-0.9); Monocytes % 3.7 %; Neutrophils # 9.71 10^3/uL (1.8-7.7); Neutrophils % 93.5 %; Nucleated Red Blood Cells % 0 %; Platelet Count 145 10^3/cmm (130-400); Red Blood Count 3.84 10^6/uL (4.1-5.3); White Blood Count 10.4 10^3/uL (4.0-10.0)
[2022-05-11 05:41] LABS: Alanine Aminotransferase 64 U/L (0-33); Albumin Level 3.1 g/dL (3.5-5.2); Alkaline Phosphatase 120 U/L (35-105); Anion Gap 15.8 (5-19); Aspartate Amino Transferase 68 U/L (0-32); Blood Urea Nitrogen 24 mg/dL (8-23); Calcium 8.4 mg/dL (8.5-10.5); Carbon Dioxide 24 mmol/L (22-29); Chloride 96 mmol/L (98-107); Globulin 3.2 g/dL (1.3-4.6); Glucose 176 mg/dL (65-115); Magnesium 2.5 mg/dL (1.7-2.3); Osmolality Calculated 280 mOsm/kg (285-295); Potassium 4.8 mmol/L (3.5-5.1); Sodium 131 mmol/L (136-145); Total Bilirubin 0.4 mg/dL (0.15-1.2); Total Protein 6.3 g/dL (6.6-8.7)
[2022-05-11 06:03] LABS: Hepatitis A Antibody IgM Non-Reactive (Nonreactive); Hepatitis B Core IgM Non-Reactive (Nonreactive); Hepatitis B Surface Antigen Non-Reactive (Nonreactive); Hepatitis C Virus Antibody Non-Reactive (Nonreactive)
[2022-05-11] MEDS: HYDROcodone-acetaminophen 5-325 mg Tablet 1 TAB PO (06:18)
[2022-05-11] MEDS: ALPRAZolam 0.5 mg Tablet 0.25 MG PO (06:18)
[2022-05-11 08:53] LABS: Acinetobacter baumannii Not Detected (NOT DETECT); Bacteroides fragilis Not Detected (NOT DETECT); CTX-M Not Detected (NOT DETECT); Citrobacter Not Detected (NOT DETECT); Cronobacter sakazakii Not Detected (NOT DETECT); Enterobacter cloacae complex Not Detected (NOT DETECT); Enterobacter non cloacae Not Detected (NOT DETECT); Fusobacterium necrophorum Not Detected (NOT DETECT); Fusobacterium nucleatum Not Detected (NOT DETECT); Haemophilus influenzae Not Detected (NOT DETECT); IMP Resistance Gene Not Detected (NOT DETECT); KPC Resistance Gene Not Detected (NOT DETECT); Klebsiella pneumoniae group Not Detected (NOT DETECT); Morganella morganii Not Detected (NOT DETECT); NDM Resistance Gene Not Detected (NOT DETECT); Neisseria meningitidis Not Detected (NOT DETECT); OXA Resistance Gene Not Detected (NOT DETECT); Pan Candida Not Detected (NOT DETECT); Pan Gram-Positive Not Detected (NOT DETECT); Proteus mirabilis Not Detected (NOT DETECT); Pseudomonas aeruginosa Not Detected (NOT DETECT); Salmonella Not Detected (NOT DETECT); Serratia Not Detected (NOT DETECT); Serratia marcescens Not Detected (NOT DETECT); Stenotrophomonas maltophilia Not Detected (NOT DETECT); VIM Resistance Gene Not Detected (NOT DETECT)
[2022-05-11 09:19] LABS: Creatine Phosphokinase 679 U/L (26-192)
[2022-05-11] MEDS: predniSONE 10 mg Tablet 15 MG PO (09:33)
[2022-05-11] MEDS: dilTIAZem 60 mg Tablet 120 MG PO ×2 (09:34→17:12)
[2022-05-11] MEDS: FUROsemide 10 mg/mL SDV 2mL 20 MG IVP (09:34)
[2022-05-11] MEDS: acetaminophen 325 mg Tablet 650 MG PO (12:22)
--- NOTE | 2022-05-11 14:49 | P.PN_ITS ---
Subjective Subjective: She states she is not feeling better, still feeling weak, malaised. Ask for Tylenol and some grapes. Denies chest pain or pressure. Vitals/I&O/Wt Last Vital Signs Temp 97.8 F 05/10/22 14:08 Pulse 61 05/11/22 12:00 Resp 20 H 05/11/22 12:00 BP 121/57 05/11/22 12:00 Pulse Ox 94 05/11/22 12:00 O2 Del Method 05/11/22 12:00 O2 Flow Rate 6 05/11/22 12:00 05/10/22 05/11/22 05/11/22 22:59 06:59 14:59 Intake Total 450 / 450 50 / 500 250 / 250 Output Total 1300 / 1300 Balance 450 / 450 -1250 / -800 250 / 250 Weight last 48 hrs Weight 68.039 kg Physical Exam Const: COMMON NORMALS: alert; negative for patient oriented x3 GENERAL APPEARANCE: cooperative OTHER: Does appear slightly more alert than yesterday, generally weak. Currently appears to be oriented. HENMT: COMMON NORMALS: oropharynx normal Neck/C-Spine: COMMON NORMALS: no JVD Resp: COMMON NORMALS: normal respiratory effort and clear to auscultation bilaterally AUSCULTATION: clear to auscultation bilaterally Cardio: COMMON NORMALS: no JVD, regular rhythm, S1 normal heart sound present, S2 normal heart sound present and No murmurs present (Cardio) RHYTHM: regular rhythm HEART SOUNDS: S1 normal heart sound present and S2 normal heart sound present GI: COMMON NORMALS: Normal to inspection, nondistended, normoactive bowel sounds present, Soft to palpation and non-tender PALPATION: Yes Soft to palpation Extremity: COMMON NORMALS: no joint enlargement GENERAL: Yes edema (Trace) Neuro: COMMON NORMALS: moves all extremities; negative for patient oriented x3 SENSORIUM/ORIENTATION: Yes alert Psych: MOOD & AFFECT: Yes depressed mood Skin: COMMON NORMALS: no rashes or lesions noted GENERAL SKIN EXAM: no rashes or lesions noted Urinary Catheter Management: Sherman: Cath Placed During This Visit: yes Reason for Continuing Indwelling Catheter: Accurate Measurement of Urinary Output in Critically Ill Patients Urinary Catheter Date of Insertion: 05/10/22 Urinary Catheter Time of Insertion: 17:13 Data 05/11/22 05:15 05/11/22 05:15 Micro: Microbiology 05/10/22 14:42 Blood Culture - Preliminary Blood NEGATIVE TO DATE 05/10/22 14:35 Blood Culture - Preliminary Blood Escherichia coli A&P Assessment and plan (1) Acute encephalopathy: Minimal improvement. Appears slightly more alert, but still generally weak. Subjectively not feeling any better. Reviewed results of repeat sodium, improved up to 131. Continue gentle diuresis. We will recheck chemistry. Noted positive blood culture from admission 05/10, positive for E. coli 04/06 bottles. Preliminary. Follow-up culture. Received Zosyn yesterday, was continued on ceftriaxone. Currently with improvement in leukocytosis. For now continue ceftriaxone, follow-up sensitivities. No prior history of resistant infections. Reorient. For now holding off on PT assessment retroperitoneal hematoma. If condition overall improved, consider follow-up with MRI brain as well. Multifactorial acute encephalopathy including metabolic with hyponatremia, as well as acute illness with entero-/rhinovirus infection, worsening respiratory failure, acute CHF, possible recent ME, cannot exclude additional small recent CVA with noted prior multiple basal ganglia CVA on review of CT head findings. Could possibly be related to other causes as well. Additional history obtained from her [id number] and son. Discussed findings with both. Additional assessment and management of underlying conditions as below. (2) Retroperitoneal hematoma: Slight decrease in hemoglobin noted today down to 10 on review of blood count. We will follow-up additional hemoglobin tonight and CBC in the morning. Continue to withhold anticoagulation, hold off on any antiplatelets, pharmacologic DVT prophylaxis. We will hold off on PT assessment for now. Risk of infection of hematoma given noted bacteremia. Discussed with radiology. Currently too small to sample. Would plan for follow-up reimaging to reassess size and if sufficient enlargement could consider aspirating then. Noted acute retroperitoneal iliopsoas hematoma. Patient and family deny any recent falls. Unclear whether this may be somehow related to the prior fracture or whether she may have had a fall which was unwitnessed and not remembered by her as she appears to have some confusion and some memory difficulties at least at the moment with acute encephalopathy. Her overall goals of care are limited. Consider follow-up reimaging to assess for any further expansion while here in the hospital. (3) Gram-negative bacteremia: Unclear source. Gallbladder unremarkable CT, no right upper quadrant tenderness. No suggestion of colitis, no GI complaints. It would be a rare cause of mycotic aneurysm. Continue empiric antibiotics for now. Follow-up sensitivity. Consider additional imaging of left hip with MRI if able to tolerate at some point. Consider follow-up with infectious disease specialist. (4) Acute CHF: Acute diastolic CHF. Results of TTE appreciated, normal EF. Noted moderate pulmonary hypertension. Oxygenation with improvement, down to 2-3 L nasal cannula. Continue gentle diuresis, 20 mg IV Lasix. Monitor I&O, renal function. Vital signs. Acute CHF, type unknown. Does have prior history of moderate aortic stenosis. Previously EF normal. Possibly diastolic. With lower extremity edema, dyspnea on exertion. Unclear if may have had NSTEMI recently as above. (5) Hyponatremia: Improving. Continue gentle diuresis. Reassess level. Regular diet as tolerating. Difficult to tell etiology as she does have some it appears acute CHF, with some hypervolemia. Hyponatremia may be due to this. Although she also has had poor oral intake recently. May be low solute hyponatremia or combination. Regular diet, encourage oral intake as tolerating. (6) Non-ST elevation ME (NSTEMI): Downtrending troponin. Reviewed results of TTE. Normal EF. No obvious regional wall motion overnight. She denies chest pain. Unclear if recovering after minor NSTEMI, or if it was demand ischemia. Depending on goals of care do wn the road may benefit from further assessment with stress testing. Continue medical therapy as possible, currently with holding antiplatelets. Cautiously add beta-lexi. For now not on statin due to rhabdomyolysis. Possible NSTEMI, possibly recently. Appears to have downtrending elevated tro ponin, 396, 2 hours 354. Complete troponin EKG trend. Does have atrial fibrillation although is not currently in RVR. Maintaining blood pressure. Only mildly more hypoxic than usual. Noted extensive calcification of coronary arteries on CT incidentally seen. She denies chest pain. Monitor on telemetry. (7) Rhabdomyolysis: Repeat CK will appreciated, decreasing down to 679. Hold off on statin for now. Follow-up CK in the morning. Elevated CK, unclear cause. 1325, unclear if could be related to recent NSTEMI, or possibly psoas hematoma. Patient and family deny any recent falls or time spent on the floor. (8) Acute exacerbation of chronic obstructive airways disease: Continue breathing treatments Appears possibly mild exacerbation of COPD with somewhat worse hypoxia in ER compared to usual requiring 6 L, normally on 5 L at all times at home. Continue oxygen support. Scheduled neb treatments. Inhaled steroid. Prednisone, will increase dose to 15 mg. (9) Leukocytosis: Possibly secondary to rhino enterovirus, but cannot exclude other causes. Discussed also concerned with her family regarding iliopsoas hematoma of unclear origin, as well as aortic aneurysm. Consideration of possible mycotic aneurysm, possible bacteremia. Blood cultures have been collected, follow-up. For now continue empiric antibiotic coverage. Otherwise not obvious pneumonia. Does have perhaps mild COPD exacerbation. Urine nonsuggestive UTI. No GI complaints no suggestion of skin infection or other obvious site of infection. (10) Enteroviral infection: Continues having malaise, although so far no vomiting or diarrhea. Transaminitis with mild improvement. Oxygenation with improvement. Continue isolation. Supportive measures. Support oxygenation. Additional treatment of mild COPD exacerbation as above. No vomiting or diarrhea, monitor for change in symptoms. Has been generally weak, with poor appetite. Regular diet as tolerating. Fall precautions. (11) Normocytic anemia: Blood counts appreciated. Normal MCV, numbers appear very similar to recent during visit in ER on 05/05. Wrist Worsening anemia with iliopsoas retroperitoneal hematoma. Hold anticoagulation, no antiplatelets, no DVT prophylaxis other than SCD. Requested follow-up blood counts. Check Hemoccult (12) Old cerebrovascular accident (CVA) without late effect: Noted multiple prior bilateral basal ganglia CVA. Discussed with her and family. Discussed currently off anticoagulation at risk of CVA secondary to atrial fibrillation. Goals of care certainly very limited. For now monitor blood pressures. Will not at the moment undertake additional work-up but will need to follow-up with regards to this outpatient. Certainly discussed possibility of additional minor stroke contributing to her recent symptoms, although does not appear to necessarily have obvious focal abnormality. (13) Severe depression: Due to severe depression with suicidal ideation risk of harm to self of ending her life at home, requested psychiatry consultation. Discussed with psychiatrist. Severe depression with feeling of hopelessness, loss of will to live, no suicidal ideation. States at home could take either overdose on medications or use her pistol to end her life. Discussed with her psychiatry consultation, she is agreeable, will be re questing. Discussed with her family. Currently she is very weak, unable to get up from bed, without access to means and without immediate plans for suicide. (14) Suicidal ideation: As above (15) Goals of care, counseling/discussion: Discussing with her and her family, goals of care overall are limited. She has prior stated wishes for DNR as well as advanced directives. She would be okay with receiving medical treatment including antibiotics, blood transfusion if needed, etc. Certainly no aggressive measures. (16) Nicotine addiction: Nicotine replacement as needed (17) AAA (abdominal aortic aneurysm): E. coli noted in 1/3 bottles on blood culture. Follow-up sensitivity. Would be a rare cause of mycotic aneurysm. Continue empiric antibiotic coverage. Consider follow-up with infectious disease. Follow-up blood culture results with some concern of possibility of mycotic aneurysm. Prior blood cultures reviewed. Does not appear to have any positive in the past. Incidentally seen on CT. Discussed with her and family. Will need to follow- up. Additional consideration with her overall constitutional symptoms, leukocytosis, as well as iliopsoas hematoma, off possible mycotic aneurysm. Blood cultures collected, follow-up. (18) Paroxysmal A-fib: Currently in sinus rhythm, continue Cardizem. Hold anticoagulation due to iliopsoas hematoma. Monitor on telemetry. (19) Transaminitis: Reviewed liver parameters. Improving. Secondary to rhabdomyolysis. Possibly also secondary to viral infection. Follow-up liver parameters. Assess TTE. Hepatitis panel requested. Follow-up CMP. (20) Lesion of liver: Multiple lesions of liver appear unchanged from 2019. Follow-up outpatient. Plan History of lung nodule suspected for malignancy, status post radiation therapy. Discussed findings with psychiatrist, radiologist and nursing staff. Attestations Medical Necessity Statement*: Continue admission for assessment of acute on colopathy, further assessment of E. coli bacteremia, retroperitoneal hematoma suicidal ideation. Coding Level of Care Code 84008 High MDM includes risk/complexity, reviewing test results, ordering lab/other test(s) and discussion of management or test(s) w/ other healthcare professional Diagnoses Acute encephalopathy G93.40 Retroperitoneal hematoma K66.1 Gram-negative bacteremia R78.81 Acute CHF I50.9 Hyponatremia E87.1 Non-ST elevation ME (NSTEMI) I21.4 Rhabdomyolysis M62.82 Acute exacerbation of chronic obstructive airways disease J44.1 Leukocytosis D72.829 Enteroviral infection B34.1 Normocytic anemia D64.9 Old cerebrovascular accident (CVA) without late effect Z86.73 Severe depression F32.2 Suicidal ideation R45.851 Goals of care, counseling/discussion Z71.89 Nicotine addiction F17.200 AAA (abdominal aortic aneurysm) I71.40 Paroxysmal A-fib I48.0 Transaminitis R74.01 Lesion of liver K76.9
--- NOTE | 2022-05-11 16:38 | PC.NURSE ---
Pt asked multiple times if she is having thoughts of harming herself or others and she denied. She reports she did about 2 years ago when she lost her daughter.
[2022-05-11 17:36] LABS: Hepatitis A Antibody IgM Non-Reactive (Nonreactive); Hepatitis B Core IgM Non-Reactive (Nonreactive); Hepatitis B Surface Antigen Non-Reactive (Nonreactive); Hepatitis C Virus Antibody Non-Reactive (Nonreactive)
[2022-05-11] MEDS: budesonide 0.5 mg/2 mL Neb 0.25 MG INHALATION (20:01)
--- NOTE | 2022-05-11 20:17 | PC.NURSE ---
Clarified with physician regarding pt SI statements, physician indicated no immediate indication for precautions at this time.
[2022-05-11] MEDS: metoprolol tartrate 25 mg Tablet 12.5 MG PO (22:39)
[2022-05-11] MEDS: cefTRIAXone 1,000 MG in sodium chloride 0.9% (plus) 50 ML 100 MG IV (22:40)
[2022-05-11] MEDS: temazepam 15 mg Capsule PO (22:43)
[2022-05-12] VITALS (16 sets, daily range): BP systolic 123–169; BP diastolic 56–88; PULSE 54–79; RESP 15–22; TEMP 36.1–37; O2SAT 89–94
[2022-05-12] MEDS: ALPRAZolam 0.5 mg Tablet 0.25 MG PO ×2 (02:07→15:18)
[2022-05-12] MEDS: HYDROcodone-acetaminophen 5-325 mg Tablet 1 TAB PO ×3 (02:07→21:42)
[2022-05-12] MEDS: ipratropium-albuterol 3 mL Neb INHALATION ×4 (02:52→20:11)
[2022-05-12 05:03] LABS: Basophils % 0.1 %; Hematocrit 32.2 % (37.0-47.0); Hemoglobin 9.7 g/dL (11.5-15.3); Lymphocytes # 0.4 10^3/uL (0.8-4.8); Lymphocytes % 3.2 %; Mean Corpuscular HGB Conc 30.1 g/dL (30.0-36.0); Mean Corpuscular Hemoglobin 25.8 pg (28.0-34.0); Mean Corpuscular Volume 85.6 fl (81-99); Mean Platelet Volume 11.2 fL (7.4-10.4); Monocytes # 0.9 10^3/uL (0.2-0.9); Monocytes % 7.1 %; Neutrophils # 11.15 10^3/uL (1.8-7.7); Neutrophils % 88.8 %; Nucleated Red Blood Cells # 0.1 /100WBC; Nucleated Red Blood Cells % 0.4 %; Platelet Count 181 10^3/cmm (130-400); Red Blood Count 3.76 10^6/uL (4.1-5.3); White Blood Count 12.6 10^3/uL (4.0-10.0)
[2022-05-12 05:20] LABS: Alanine Aminotransferase 64 U/L (0-33); Albumin Level 3.1 g/dL (3.5-5.2); Alkaline Phosphatase 127 U/L (35-105); Anion Gap 15.9 (5-19); Aspartate Amino Transferase 57 U/L (0-32); Blood Urea Nitrogen 31 mg/dL (8-23); Calcium 8.3 mg/dL (8.5-10.5); Carbon Dioxide 23 mmol/L (22-29); Chloride 97 mmol/L (98-107); Globulin 3.1 g/dL (1.3-4.6); Glucose 130 mg/dL (65-115); Magnesium 2.4 mg/dL (1.7-2.3); Osmolality Calculated 280 mOsm/kg (285-295); Potassium 4.9 mmol/L (3.5-5.1); Sodium 131 mmol/L (136-145); Total Bilirubin 0.3 mg/dL (0.15-1.2); Total Protein 6.2 g/dL (6.6-8.7)
[2022-05-12] MEDS: vancomycin 1,250 MG/250 ML PIGGYBACK 250 MG IV ×2 (05:42→18:30)
[2022-05-12 05:55] LABS: Creatine Phosphokinase 371 U/L (26-192)
--- NOTE | 2022-05-12 07:10 | P.NPUCON_ITS ---
Providers/Reason for Consult Consulting Physican/Specialty*: Jet Jose MD. Psychiatry. Reason for Consult*: Evaluation for altered mental status/suicidal ideation. Attending Physician: Anoop Larkin Primary Care Provider: Thompson Zuluaga MD Psych Consult HPI History of Present Illness Lisset Murphy is a 72 year old female who presented to the emergency department wit h the following report: Chief complaint: Shortness of Breath/Dyspnea Stated complaint: SOB, cant walk, SI Time Seen by Provider: 05/10/22 14:08 Limitations: altered mental status History of Present Illness: Ms Murphy is a 72-year-old lady with history of COPD with chronic hypoxic respiratory failure, history of DVT presenting to the emergency department for altered mental status. She was seen in the emergency department on 05/05 and diagnosed with a iliac spine avulsion fracture. Since that time family notes that she has had a marked decline with possible jaundice and altered mental status in addition to rambling and suicidal ideation. History is otherwise limited by patient's mental status. She was admitted to the [facility] for definitive treatment of those issues. Psychiatric consult was requested to explore her possible suicidal thoughts. She presents today reporting that she does not have a significant psychiatric history though she has had some significant challenges. She denies any inpatient psychiatric hospitalization or any outpatient psychiatric services. She denies any significant history of medications for anxiety or depression. She reports that she has not really had a history of those conditions. She reports that she has smoked cigarettes for much of her life and expressed remorse that she had done that because she acknowledges that her condition is secondary to her behavior. She reports that she has had suicidal thinking and that part of that has been related to the fact that she has felt so miserable as her breathing difficulties have increased as she thinks about them being self- inflicted. She identifies that if her life is going to be miserable and she can feel horrible all the time that she does think it would be better off to be . We discussed the risks, benefits and alternatives of a trial of an antidepressant and she understood and identified that she would consider it as is documented in this note. We additionally agreed that we will review her medications as she is taking a very small dose of Xanax and temazepam and we discussed the fact that those might be poor choices given her COPD. Meds Home Medications and Allergies Home Medications Medication Instructions Recorded Confirmed Last Taken Type albuterol sulfate 90 mcg/actuation 2 puff inhalation Q6H PRN 06/20/19 05/10/22 01/25/22 History aerosol inhaler (ProAir HFA) Shortness Of Breath furosemide 20 mg tablet 20 mg PO QAM 02/01/20 05/10/22 05/09/22 History albuterol sulfate 2.5 mg/3 mL 2.5 mg (3 mL) inhalation Q6H PRN 04/22/21 05/10/22 01/25/22 Rx (0.083 %) solution for nebulization bronchospasm #180 mL diltiazem HCl 120 mg tablet 120 mg PO BID 06/16/21 05/10/22 05/10/22 History fluticasone fur. 100 mcg-umeclid 1 inh inhalation DAILY@06/16/21 05/10/22 01/25/22 History 62.5 mcg-vilant 25 mcg inhalat.powder (Trelegy Ellipta) apixaban 2.5 mg tablet (Eliquis) 2.5 mg PO BID #60 tabs 01/01/22 05/10/22 05/10/22 Rx alprazolam 0.25 mg tablet 0.25 mg PO BID PRN Anxiety 01/25/22 05/10/22 Unknown History temazepam 15 mg capsule 15 mg PO BEDTIME PRN sleep 01/25/22 05/10/22 Unknown History Home oxygen #1 ea 02/02/22 05/10/22 Unknown Rx fluticasone propionate 50 1 spray intranasal Q12H #16 grams 03/09/22 05/10/22 Unknown Rx mcg/actuation nasal spray,suspension hydrocodone 5 mg-acetaminophen 325 1 tab PO Q6H PRN pain #14 tabs 05/05/22 05/10/22 05/10/22 Rx mg tablet prednisone 5 mg tablet 5 mg PO DAILY 05/10/22 05/10/22 05/09/22 History Allergies Allergy/AdvReac Type Severity Reaction Status Date / Time shrimp Allergy ADR-Nausea Uncoded 02/05/22 09:10 Current Medications Current Medications Generic Name Dose Route Start Last Admin Trade Name Freq PRN Reason Stop Dose Admin Acetaminophen 650 mg 05/10/22 21:58 05/11/22 12:22 Acetaminophen 325 Mg Tablet PO 650 mg Q6H PRN Administration Mild/Mod Pain Or Temp >/= 101 Hydrocodone Bitart/Acetaminophen 1 tab 05/10/22 21:58 05/12/22 02:07 Hydrocodone-Acetaminophen 5-325 Mg Tablet PO 1 tab Q6H PRN Administration pain Albuterol/Ipratropium 3 ml 05/11/22 02:00 05/12/22 02:52 Ipratropium-Albuterol 3 Ml Neb INHALATION 3 ml Q6H.RESP GÓMEZ Administration Albuterol/Ipratropium 3 ml 05/11/22 14:50 05/11/22 23:05 Ipratropium-Albuterol 3 Ml Neb INHALATION 3 ml Q4H.RESPIRATORY PRN Administration SHORTNESS OF BREATH Alprazolam 0.25 mg 05/10/22 22:08 05/12/22 02:07 Alprazolam 0.5 Mg Tablet PO 0.25 mg BID PRN Administration Anxiety Budesonide 0.25 mg 05/11/22 20:00 05/11/22 20:01 Budesonide 0.5 Mg/2 Ml Neb INHALATION 0.25 mg BID.RESPIRATORY GÓMEZ Administration Diltiazem HCl 120 mg 05/11/22 09:00 05/11/22 17:12 Diltiazem 60 Mg Tablet PO 120 mg BID GÓMEZ Administration Furosemide 20 mg 05/11/22 09:00 05/11/22 09:34 Furosemide 10 Mg/Ml Sdv 2ml IVP 20 mg DAILY GÓMEZ Administration Ceftriaxone Sodium 1,000 mg/ 50 mls @ 100 mls/hr 05/10/22 22:00 05/11/22 23:34 Sodium Chloride IV Infused Q24H GÓMEZ Infusion Protocol Vancomycin/PEG/NADA/Lysine/Water 1,250 mg in 250 mls @ 250 mls/hr 05/11/22 05:00 05/12/22 05:42 Vancocin IV 250 mls/hr Q12H GÓMEZ Administration Metoprolol Tartrate 12.5 mg 05/11/22 21:00 05/11/22 22:39 Metoprolol Tartrate 25 Mg Tablet PO 12.5 mg BID@0900,2100 GÓMEZ Administration Prednisone 15 mg 05/10/22 21:58 05/11/22 09:33 Prednisone 10 Mg Tablet PO 15 mg DAILY GÓMEZ Administration Temazepam 15 mg 05/10/22 21:58 05/11/22 22:43 Temazepam 15 Mg Capsule PO 15 mg BEDTIME PRN Administration sleep PFSH NPU PFSH: Medical History Allergic rhinitis Asthma Chronic obstructive pulmonary disease COPD (chronic obstructive pulmonary disease) DVT (deep venous thrombosis) Essential (primary) hypertension -VSS; continue to monitor -continue oral antihypertensives Hypoxia Moderate aortic stenosis -Noted moderate on echo; also noted to have EF=65%, no RWMA, G1DD, moderate pulmonary HTN, mild-moderate TR Nicotine addiction Paroxysmal A-fib Pulmonary nodule Subcapital fracture of left femur -secondary to mechanical fall -s/p bipolar arthroplasty by Dr. Good; POD # 3 -EBL-100 mL -PT/OT evaluations appreciated -strict fall precautions, pain control as needed -bowel regimen -Sherman catheter removed Surgical History H/O tubal ligation Family History Father CAD (coronary artery disease) Mother Cancer Social History Smoking and tobacco status: current every day smoker (4/5 cigs) cigarettes Packs smoked per day: 1.5 Years cigarettes smoked: 50 [ Other cigarette details: Started at age 13 years] Quit status (tobacco): considering quitting Smoking risk assessment/counseling performed?: Yes Alcohol intake: never Counseling given: No Counseling given: No Lives independently: Yes Household members: none Marital status: Current occupational status: retired History of recent travel: No Current gender identity: Female Mental Status Exam MSE Comments: This is a slender white female in a hospital gown with limited grooming but adequate eye contact. No abnormal movements except for mild psychomotor retardation. Cooperative with exam in mild to moderate distress. Speech was slightly decreased rate and volume. Mood described as a little down, affect congruent. Thought process organized. Thought content: Patient denied current suicidal or homicidal ideation but does endorse having suicidal thinking or at least a passive wish, there were no delusions reported or noted, she denied any auditory or visual hallucinations. Attention and concentration appeared intact and memory was mostly reliable but none were formally tested. She is alert and oriented x3. Insight and judgment appear fair and impulse control limited. Vitals/I&O/Wt Last Vital Signs Temp 98.4 F 05/12/22 03:56 Pulse 63 05/12/22 03:56 Resp 16 05/12/22 03:56 BP 141/70 05/12/22 03:56 Pulse Ox 92 05/12/22 03:56 O2 Del Method 05/12/22 03:56 O2 Flow Rate 2 05/12/22 03:00 05/11/22 05/12/22 05/12/22 22:59 06:59 14:59 Intake Total 850 / 1100 50 / 1150 Output Total 900 / 900 300 / 1200 Balance -50 / 200 -250 / -50 Weight last 48 hrs Weight 70.352 kg Weight 68.039 kg Physical Exam Urinary Catheter Management: Sherman: Cath Placed During This Visit: yes Reason for Continuing Indwelling Catheter: Accurate Measurement of Urinary Output in Critically Ill Patients Urinary Catheter Date of Insertion: 05/10/22 Urinary Catheter Time of Insertion: 17:13 Data NPU 05/12/22 04:24 05/12/22 04:24 Micro: Microbiology 05/11/22 19:25 Occult Blood (FIT) - Final Stool - Stool Aspirate 05/10/22 14:42 Blood Culture - Preliminary Blood NEGATIVE TO DATE 05/10/22 14:35 Blood Culture - Preliminary Blood Escherichia coli Microbiology 05/11/22 19:25 Stool - Stool Aspirate Occult Blood (FIT) - Final 05/10/22 14:42 Blood Blood Culture - Preliminary NEGATIVE TO DATE 05/10/22 14:35 Blood Blood Culture - Preliminary Escherichia coli A&P Assessment and plan (1) Nicotine addiction: (2) Suicidal ideation: (3) Severe depression: (4) Acute alteration in mental status: Plan This is a 72-year-old white female with recent history of last and medical decline who presents reporting depression and anxiety and thoughts of lethality. 1. Continue current medication. We will consider an antidepressant. 2. Currently would not recommend her going home without possible geriatric psychiatry intervention possibly inpatient. 3. We will continue to follow. Attestations NPU Medical Necessity Statement*: N/A. Please see primary team note for medical necessity but will continue to make recommendations in relation to possible inpatient psychiatric services. Coding Level of Care Code Acute Code for Chg Fwd Diagnoses Nicotine addiction F17.200 Suicidal ideation R45.851 Severe depression F32.2 Acute alteration in mental status R41.82
[2022-05-12] MEDS: budesonide 0.5 mg/2 mL Neb 0.25 MG INHALATION ×2 (07:24→20:11)
--- NOTE | 2022-05-12 08:44 | PC.CHAP ---
Pastoral Care Encounter/Spiritual Assessment Type of Contact [] Declined scientific publications editor visit [] Patient/Family/Request visit [] Outpatient visit [] Follow-up visit [] Physician referral [] Code/Alert [x] Routine visit [] Staff referral [] Actively dying [] Patient sleeping [] Family support [] [] Out of room [] Palliative care [] [] Receiving care in room [] Pre-surgical visit [] Trauma [] Long length of stay [] ICU visit [] Other: Relational/Emotional Strength [x] Patient feels connected with others/family/visitors/staff [] Distress [] Loneliness/isolation [] Abandonment Spirituality of Patient [x] Person of [place] [] Attends Pentecostalism of their [place] [] Believes in Prayer [] Reads Bible or Zoroastrian materials [] There are Spiritual issues to be addressed Typing Section Chief Interventions [] Prayer [x] Active listening [x] Non-anxious presence [x] Spiritual/emotional support [] Crisis/trauma care [] Spiritual counseling [] Bereavement support [] Provided bereavement packet [] Provided Bible/devotional materials [] Provided toy/stuffed animal, coloring book to patient or family member [] Provided Communion [] Anointing/[place] [] Salvation [x] Completed spiritual assessment [] Other: Impact on Illness or Injury [] Angry [] Fearful [] Anxious [] Often cries [] Exhaustion [] Unable to work [] Unable to attend anglican [] Unable to walk/stand [] Unable to read [] Unable to drive [] Unable to eat/drink [] Unable to sleep [] Unable to be with family [] Patient intubated [] Other: Summary Pt did not have a clear head at the time scientific publications editor spoke with her. She spoke of her , about wanting to get out of the hospital to go see the doctor. She was lying across the bed and wanted to rise but could not get up. Typing Section Chief told nurse who came to assist her. Time spent with patient 5m
[2022-05-12] MEDS: dilTIAZem 60 mg Tablet 120 MG PO ×2 (09:48→18:30)
[2022-05-12] MEDS: predniSONE 10 mg Tablet 15 MG PO (09:49)
[2022-05-12] MEDS: metoprolol tartrate 25 mg Tablet 12.5 MG PO ×2 (09:50→21:42)
[2022-05-12] MEDS: FUROsemide 10 mg/mL SDV 2mL 20 MG IVP (09:50)
[2022-05-12 18:20] LABS: Vancomycin Trough 18.1 ug/mL (10-15)
[2022-05-12] MEDS: temazepam 15 mg Capsule PO (21:42)
[2022-05-12] MEDS: cefTRIAXone 1,000 MG in sodium chloride 0.9% (plus) 50 ML 100 MG IV (21:43)
--- NOTE | 2022-05-12 21:48 | P.PN_ITS ---
Subjective Subjective: She does not feel any better. Denies chest pain or pressure. Has not had any vomiting. Discussed with her decreasing hemoglobin. Discussed with her visit with psychiatry. Vitals/I&O/Wt Last Vital Signs Temp 97.6 F 05/12/22 11:53 Pulse 71 05/12/22 20:15 Resp 16 05/12/22 20:15 BP 161/56 05/12/22 15:46 Pulse Ox 94 05/12/22 20:15 O2 Del Method 05/12/22 20:15 O2 Flow Rate 4 05/12/22 20:15 05/12/22 05/12/22 05/12/22 06:59 14:59 22:59 Intake Total 50 / 1150 490 / 490 250 / 740 Output Total 300 / 1200 1350 / 1350 Balance -250 / -50 -860 / -860 250 / -610 Weight last 48 hrs Weight 70.352 kg Weight 68.039 kg Physical Exam Const: COMMON NORMALS: alert; negative for patient oriented x3 GENERAL APPEARANCE: cooperative OTHER: More alert and interactive. Generally weak. HENMT: COMMON NORMALS: oropharynx normal Neck/C-Spine: COMMON NORMALS: no JVD Resp: COMMON NORMALS: normal respiratory effort and clear to auscultation bilaterally AUSCULTATION: clear to auscultation bilaterally Cardio: COMMON NORMALS: no JVD, regular rhythm, S1 normal heart sound present, S2 normal heart sound present and No murmurs present (Cardio) RHYTHM: regular rhythm HEART SOUNDS: S1 normal heart sound present and S2 normal heart sound present GI: COMMON NORMALS: Normal to inspection, nondistended, normoactive bowel sounds present, Soft to palpation and non-tender PALPATION: Yes Soft to palpation Extremity: COMMON NORMALS: no joint enlargement GENERAL: Yes edema (Trace) Neuro: COMMON NORMALS: moves all extremities; negative for patient oriented x3 SENSORIUM/ORIENTATION: Yes alert Psych: MOOD & AFFECT: Yes depressed mood Skin: COMMON NORMALS: no rashes or lesions noted GENERAL SKIN EXAM: no rashes or lesions noted Urinary Catheter Management: Sherman: Cath Placed During This Visit: yes Reason for Continuing Indwelling Catheter: Acute Urinary Retention or Obstruction Urinary Catheter Date of Insertion: 05/10/22 Urinary Catheter Time of Insertion: 17:13 Data 05/12/22 04:24 05/12/22 04:24 Micro: Microbiology 05/11/22 19:25 Occult Blood (FIT) - Final Stool - Stool Aspirate A&P Assessment and plan (1) Acute encephalopathy: To me she appears to be gradually improving, although does not feel any better. She is more alert and interactive. Sodium level reviewed, same at 131. Held additional diuresis for now. Follow-up sodium and renal function. Reviewed positive pending blood culture from admission 05/10, positive for E. coli / bottles. Follow-up culture. Continue on ceftriaxone for now although has worsening leukocytosis on review. Follow-up culture sensitivities. Reorient. For now holding off on PT assessment retroperitoneal hematoma. If condition overall improves, consider follow-up with MRI brain due to history of malignancy. Multifactorial acute encephalopathy including metabolic with hyponatremia, as well as acute illness with entero-/rhinovirus infection, worsening respiratory failure, acute CHF, possible recent CO, cannot exclude additional small recent CVA with noted prior multiple basal ganglia CVA on review of CT head findings. Could possibly be related to other causes as well. Additional assessment and management of underlying conditions as below. (2) Retroperitoneal hematoma: Reviewed blood counts, hemoglobin down to 9.7. Discussed with her. Requiring close hemoglobin monitoring due to retroperitoneal hemorrhage. Blood counts requested. Continue to withhold anticoagulation, hold off on any antiplatelets, pharmacologic DVT prophylaxis. We will hold off on PT assessment for now. Risk of infection of hematoma given noted bacteremia. Currently too small to sample. Would plan for follow-up reimaging to reassess size and if sufficient enlargement could consider aspirating then. Noted acute retroperitoneal iliopsoas hematoma. Patient and family deny any recent falls. Unclear whether this may be somehow related to the prior fracture or whether she may have had a fall which was unwitnessed and not remembered by her as she appears to have some confusion and some memory difficulties at least at the moment with acute encephalopathy. Her overall goals of care are limited. Consider follow-up reimaging to assess for any further expansion while here in the hospital. (3) Gram-negative bacteremia: Unclear source. Gallbladder unremarkable CT, no right upper quadrant tenderness. No suggestion of colitis, no GI complaints. It would be a rare cause of mycotic aneurysm. Continue empiric antibiotics for now. Follow-up sensitivity. Consider additional imaging of left hip with MRI if able to tolerate at some p oint. Consider follow-up with infectious disease specialist. (4) Acute CHF: Acute diastolic CHF. Results of TTE appreciated, normal EF. Noted moderate pulmonary hypertension. Oxygenation with improvement, down to 2-3 L nasal cannula. Continue gentle diuresis, 20 mg IV Lasix. Monitor I&O, renal function. Vital signs. Acute CHF, type unknown. Does have prior history of moderate aortic stenosis. Previously EF normal. Possibly diastolic. With lower extremity edema, dyspnea on exertion. Unclear if may have had NSTEMI recently as above. (5) Hyponatremia: Improving. Continue gentle diuresis. Reassess level. Regular diet as tolerating. Difficult to tell etiology as she does have some it appears acute CHF, with some hypervolemia. Hyponatremia may be due to this. Although she also has had poor oral intake recently. May be low solute hyponatremia or combination. Regular diet, encourage oral intake as tolerating. (6) Non-ST elevation CO (NSTEMI): Downtrending troponin. Reviewed results of TTE. Normal EF. No obvious regional wall motion overnight. She denies chest pain. Unclear if recovering after minor NSTEMI, or if it was demand ischemia. Depending on goals of care down the road may benefit from further assessment with stress testing. Continue medical therapy as possible, currently with holding antiplatelets. Cautiously add beta-lexi. For now not on statin due to rhabdomyolysis. Possible NSTEMI, possibly recently. Appears to have downtrending elevated troponin, 396, 2 hours 354. Complete troponin EKG trend. Does have atrial fibrillation although is not currently in RVR. Maintaining blood pressure. Only mildly more hypoxic than usual. Noted extensive calcification of coronary arteries on CT incidentally seen. She denies chest pain. Monitor on telemetry. (7) Rhabdomyolysis: Repeat CK reviewed. Improving. Stop further CK currently. Hold off on statin for now. Elevated CK, unclear cause. 1325, unclear if could be related to recent NSTEMI, or possibly psoas hematoma. Patient and family deny any recent falls or time spent on the floor. (8) Acute exacerbation of chronic obstructive airways disease: Improving. She does not feel any better. Follow-up chest x-ray requested. Appears possibly mild exacerbation of COPD Continue oxygen support. Scheduled neb treatments. Inhaled steroid. Prednisone 15 mg. (9) Leukocytosis: Possibly secondary to rhino enterovirus, but cannot exclude other causes. Discussed also concerned with her family regarding iliopsoas hematoma of unclear origin, as well as aortic aneurysm. Consideration of possible mycotic aneurysm, possible bacteremia. Blood cultures have been collected, follow-up. For now continue empiric antibiotic coverage. Otherwise not obvious pneumonia. Does have perhaps mild COPD exacerbation. Urine nonsuggestive UTI. No GI complaints no suggestion of skin infection or other obvious site of infection. (10) Enteroviral infection: Continues having malaise, although so far no vomiting or diarrhea. Transaminitis with mild improvement. Oxygenation with improvement. Continue isolation. Supportive measures. Support oxygenation. Additional treatment of mild COPD exacerbation as above. No vomiting or diarrhea, monitor for change in symptoms. Has been generally weak, with poor appetite. Regular diet as tolerating. Fall precautions. (11) Normocytic anemia: Blood counts appreciated. Normal MCV, numbers appear very similar to recent during visit in ER on 05/05. Wrist Worsening anemia with iliopsoas retroperitoneal hematoma. Hold anticoagulation, no antiplatelets, no DVT prophylaxis other than SCD. Requested follow-up blood counts. Reviewed Hemoccult, negative. (12) Old cerebrovascular accident (CVA) without late effect: Noted multiple prior bilateral basal ganglia CVA. Discussed with her and family. Discussed currently off anticoagulation at risk of CVA secondary to atrial fibrillation. Goals of care certainly very limited. For now monitor blood pressures. Will not at the moment undertake additional work-up but will need to follow-up with regards to this outpatient. Certainly discussed possibility of additional minor stroke contributing to her recent symptoms, although does not appear to necessarily have obvious focal abnormality. (13) Severe depression: Discussed severe depression and suicidal ideation with psychiatrist. Appreciate consultation. Note still pending. They will be revisiting with her with further consideration of options depending on how she is recovering. Due to severe depression with suicidal ideation risk of harm to self of ending her life at home, requested psychiatry consultation. Discussed with psychiatrist. Severe depression with feeling of hopelessness, loss of will to live, no suicidal ideation. States at home could take either overdose on medications or use her pistol to end her life. Discussed with her psychiatry consultation, she is agreeable, will be requesting. Discussed with her family. Currently she is very weak, unable to get up from bed, without access to means and without immediate plans for suicide. (14) Suicidal ideation: As above (15) Goals of care, counseling/discussion: On admission discussing with her and her family, goals of care overall are limited. She has prior stated wishes for DNR as well as advanced directives. She would be okay with receiving medical treatment including antibiotics, blood transfusion if needed, etc. Certainly no aggressive measures. (16) Nicotine addiction: Nicotine replacement as needed (17) AAA (abdominal aortic aneurysm): E. coli noted in 1/3 bottles on blood culture. Follow-up sensitivity. Would be a rare cause of mycotic aneurysm. Continue empiric antibiotic coverage. Consid er follow-up with infectious disease. Follow-up blood culture results with some concern of possibility of mycotic aneurysm. Prior blood cultures reviewed. Does not appear to have any positive in the past. Incidentally seen on CT. Discussed with her and family. Will need to follow- up. Additional consideration with her overall constitutional symptoms, leukocytosis, as well as iliopsoas hematoma, off possible mycotic aneurysm. Blood cultures collected, follow-up. (18) Paroxysmal A-fib: Currently in sinus rhythm, continue Cardizem. Hold anticoagulation due to iliopsoas hematoma. Monitor on telemetry. (19) Transaminitis: Reviewed liver parameters -with additional mild improvement. Secondary to rhabdomyolysis. Possibly also secondary to viral infection. Follow-up liver parameters. TTE results appreciated, normal EF, grade 1 diastolic dysfunction. Left atrial dilation. Trace mitral regurgitation. Mild TR. Mild pulmonary hypertension Hepatitis panel reviewed, negative. Follow-up CMP requested (20) Lesion of liver: Multiple lesions of liver appear unchanged from 2019. Follow-up outpatient. Plan History of lung nodule suspected for malignancy, status post radiation therapy. Discussed findings with psychiatrist, radiologist and nursing staff. Attestations Medical Necessity Statement*: Continue admission for assessment and off retroperitoneal hemorrhage, acute anemia, and lady on anticoagulation, further assessment and treatment with gram-negative crista bacteremia, further assessment management of severe depression with suicidal ideation with risk to self. Coding Level of Care Code 03096 High MDM includes risk/complexity, reviewing test results, ordering lab/other test(s) and discussion of management or test(s) w/ other healthcare professional Diagnoses Acute encephalopathy G93.40 Retroperitoneal hematoma K66.1 Gram-negative bacteremia R78.81 Acute CHF I50.9 Hyponatremia E87.1 Non-ST elevation CO (NSTEMI) I21.4 Rhabdomyolysis M62.82 Acute exacerbation of chronic obstructive airways disease J44.1 Leukocytosis D72.829 Enteroviral infection B34.1 Normocytic anemia D64.9 Old cerebrovascular accident (CVA) without late effect Z86.73 Severe depression F32.2 Suicidal ideation R45.851 Goals of care, counseling/discussion Z71.89 Nicotine addiction F17.200 AAA (abdominal aortic aneurysm) I71.40 Paroxysmal A-fib I48.0 Transaminitis R74.01 Lesion of liver K76.9
[2022-05-13] VITALS (15 sets, daily range): BP systolic 127–155; BP diastolic 62–91; PULSE 48–78; RESP 16–20; TEMP 36.1–36.7; O2SAT 89–95
[2022-05-13] MEDS: ipratropium-albuterol 3 mL Neb INHALATION ×4 (02:38→19:55)
[2022-05-13] MEDS: vancomycin 1,250 MG/250 ML PIGGYBACK 250 MG IV ×2 (05:10→17:29)
[2022-05-13 05:21] LABS: Basophils % 0.1 %; Hematocrit 31.1 % (37.0-47.0); Hemoglobin 9.4 g/dL (11.5-15.3); Lymphocytes # 0.7 10^3/uL (0.8-4.8); Lymphocytes % 6.3 %; Mean Corpuscular HGB Conc 30.2 g/dL (30.0-36.0); Mean Corpuscular Hemoglobin 26.3 pg (28.0-34.0); Mean Corpuscular Volume 86.9 fl (81-99); Mean Platelet Volume 10.7 fL (7.4-10.4); Monocytes # 1.1 10^3/uL (0.2-0.9); Monocytes % 9.6 %; Neutrophils # 9.32 10^3/uL (1.8-7.7); Neutrophils % 82.8 %; Nucleated Red Blood Cells % 0.3 %; Platelet Count 219 10^3/cmm (130-400); Red Blood Count 3.58 10^6/uL (4.1-5.3); Red Cell Distribution Width 14.2 % (12.1-15.1); White Blood Count 11.3 10^3/uL (4.0-10.0)
[2022-05-13 05:42] LABS: Alanine Aminotransferase 58 U/L (0-33); Albumin Level 2.9 g/dL (3.5-5.2); Alkaline Phosphatase 145 U/L (35-105); Anion Gap 14.2 (5-19); Aspartate Amino Transferase 43 U/L (0-32); Blood Urea Nitrogen 28 mg/dL (8-23); Calcium 8.1 mg/dL (8.5-10.5); Carbon Dioxide 26 mmol/L (22-29); Chloride 100 mmol/L (98-107); Globulin 2.8 g/dL (1.3-4.6); Glucose 107 mg/dL (65-115); Magnesium 2.4 mg/dL (1.7-2.3); Osmolality Calculated 286 mOsm/kg (285-295); Potassium 5.2 mmol/L (3.5-5.1); Sodium 135 mmol/L (136-145); Total Bilirubin 0.3 mg/dL (0.15-1.2); Total Protein 5.7 g/dL (6.6-8.7)
--- NOTE | 2022-05-13 06:00 | XR_ITS ---
WS: [id number] XR chest 1V portable [id number] REASON FOR EXAM: Hypoxia FINDINGS: Coarse interstitial reticular changes and multiple areas of lucency throughout the lungs compatible w ith central lobar emphysema which was demonstrated on CT scan of the chest 05/10/2022. The reticular interstitial and patchy lung opacities in the lower and mid lung bonds appear more pro minent than on the previous examination of 05/10/2022. No other significant interval change compared to 09/21/2022. XR/XR chest 1V portable [id number] IMPRESSION: Previously demonstrated lung opacities somewhat more extensive than on the prev ious examination.
[2022-05-13] MEDS: HYDROcodone-acetaminophen 5-325 mg Tablet 1 TAB PO ×2 (07:23→13:13)
[2022-05-13] MEDS: budesonide 0.5 mg/2 mL Neb 0.25 MG INHALATION ×2 (08:27→20:06)
[2022-05-13] MEDS: dilTIAZem 60 mg Tablet 120 MG PO ×2 (09:00→17:28)
[2022-05-13] MEDS: FUROsemide 10 mg/mL SDV 2mL 20 MG IVP (09:00)
[2022-05-13] MEDS: predniSONE 10 mg Tablet 15 MG PO (09:00)
[2022-05-13] MEDS: metoprolol tartrate 25 mg Tablet 12.5 MG PO (09:00)
--- NOTE | 2022-05-13 11:50 | PC.SOCIAL ---
IMM Update IMM updated with patient and patient's son. Verbalized an understanding. Copy PG 2 provided. Initialled, dated, timed, and placed in chart.
[2022-05-13] MEDS: ALPRAZolam 0.5 mg Tablet 0.25 MG PO (13:13)
--- NOTE | 2022-05-13 16:58 | P.NPUPN_ITS ---
Subjective NPU Subjective: Patient presented today with her son at her bedside basically reiterating the things she said yesterday. Namely she is feeling depressed and having despair related to her COPD. Additionally we talked about her daughter who a couple years ago who had medical challenges as well. Son confirms that this talk about not wanting to be around if her illnesses like this is not new and he experiences this at the house as she lives with him when she is not in the hospital. We discussed the risk benefits and alternatives of considering Lexapro given she does not have other antidepressants and she understood and agreed to proceed as is documented in this note. Mental Status Exam MSE Comments: This is a slender white female in a hospital gown with limited grooming but adequate eye contact. No abnormal movements except for mild psychomotor retardation. Cooperative with exam in mild to moderate distress. Speech was slightly decreased rate and volume. Mood described as a little down, affect congruent. Thought process organized. Thought content: Patient denied current suicidal or homicidal ideation but does endorse having suicidal thinking or at least a passive wish, there were no delusions reported or noted, she denied any auditory or visual hallucinations. Attention and concentration appeared intact and memory was mostly reliable but none were formally tested. She is alert and oriented x3. Insight and judgment appear fair and impulse control limited. Vitals/I&O/Wt Last Vital Signs Temp 98.0 F 05/13/22 14:00 Pulse 68 05/13/22 14:00 Resp 16 05/13/22 14:00 BP 140/70 05/13/22 14:00 Pulse Ox 95 05/13/22 14:00 O2 Del Method 05/13/22 14:00 O2 Flow Rate 5 05/13/22 14:00 05/13/22 14:59 Intake Total 400 / 400 Output Total Balance 400 / 400 Weight last 48 hrs Weight 68.209 kg Physical Exam Urinary Catheter Management: Sherman: Cath Placed During This Visit: yes Reason for Continuing Indwelling Catheter: Accurate Measurement of Urinary Output in Critically Ill Patients Urinary Catheter Date of Insertion: 05/10/22 Urinary Catheter Time of Insertion: 17:13 Data NPU 05/13/22 04:24 05/13/22 04:24 Micro: Microbiology 05/13/22 22:25 Legionella Urinary Antigen - Final Urine,Voided 05/10/22 14:35 Blood Culture - Preliminary Blood Escherichia coli Microbiology 05/13/22 22:25 Urine,Voided Legionella Urinary Antigen - Final 05/10/22 14:35 Blood Blood Culture - Preliminary Escherichia coli A&P Assessment and plan (1) Nicotine addiction: (2) Suicidal ideation: (3) Severe depression: (4) Acute alteration in mental status: Plan This is a 72-year-old white female with recent history of last and medical decline who presents reporting depression and anxiety and thoughts of lethality. 1. Continue current medication. Recommend Lexapro 10 mg p.o. every morning. Could also consider low-dose Neurontin, BuSpar or propranolol to assist with anxiety. Could also consider Remeron as the antidepressant with the added benef it of assisting with sleep and could get rid of the temazepam. Will continue the low-dose Haldol for the high anxiety agitation. 2. Currently would not recommend her going home without possible geriatric psychiatry intervention possibly inpatient. 3. We will continue to follow. Attestations NPU Medical Necessity Statement*: N/A. Please see primary team note for medical necessity but will continue to make recommendations in relation to possible inpatient psychiatric services. Coding Level of Care Code Acute Code for Chg Fwd Diagnoses Nicotine addiction F17.200 Suicidal ideation R45.851 Severe depression F32.2 Acute alteration in mental status R41.82
[2022-05-13] MEDS: haloperidol 1 mg Tablet 2 MG PO (17:48)
[2022-05-13] MEDS: lidocaine 5% Patch 1 PATCH TOPICAL (18:17)
[2022-05-13] MEDS: HYDROmorphone 1 mg/mL INJ 1 mL 0.5 MG IVP (18:18)
[2022-05-13] MEDS: lanolin oint 7 gm 1 APPLIC TOPICAL (18:57)
[2022-05-13] MEDS: cefTRIAXone 1,000 MG in sodium chloride 0.9% (plus) 50 ML 100 MG IV (21:05)
[2022-05-13] MEDS: temazepam 15 mg Capsule PO (21:05)
--- NOTE | 2022-05-13 21:36 | P.PN_ITS ---
Subjective Subjective: This morning she had a good morning, however, her mental status appears to be fluctuating quite a bit. This morning she was happy about having a visit from her sister. This morning she denies pain. However, later in the evening she is more confused. Complaining of pain in her tailbone. Discussing with her son, her sister did indeed visit her. However, patient has been considering about going home with her sister as alternative to going to custodial facility, her, per discussion with her son sister is nowhere near in strong enough condition to try to assist patient up more with transfers or repositioning. Vitals/I&O/Wt Last Vital Signs Temp 97.9 F 05/13/22 19:20 Pulse 64 05/13/22 19:55 Resp 19 H 05/13/22 19:55 BP 135/62 05/13/22 19:20 Pulse Ox 93 05/13/22 19:55 O2 Del Method 05/13/22 19:55 O2 Flow Rate 5 05/13/22 19:55 05/13/22 05/13/22 05/13/22 06:59 14:59 22:59 Intake Total 300 / 1040 400 / 400 490 / 890 Output Total 850 / 2200 1000 / 1000 Balance -550 / -1160 400 / 400 -510 / -110 Weight last 48 hrs Weight 68.209 kg Physical Exam Narrative: Accompanied by her son. Const: COMMON NORMALS: alert; negative for patient oriented x3 GENERAL APPEARANCE: cooperative OTHER: More alert and interactive this morning. Restless, more confused this evening. HENMT: COMMON NORMALS: oropharynx normal Neck/C-Spine: COMMON NORMALS: no JVD Resp: COMMON NORMALS: normal respiratory effort and clear to auscultation bilaterally AUSCULTATION: clear to auscultation bilaterally Cardio: COMMON NORMALS: no JVD, regular rhythm, S1 normal heart sound present, S2 normal heart sound present and No murmurs present (Cardio) RHYTHM: regular rhythm HEART SOUNDS: S1 normal heart sound present and S2 normal heart sound present GI: COMMON NORMALS: Normal to inspection, nondistended, normoactive bowel sounds present, Soft to palpation and non-tender PALPATION: Yes Soft to palpation Extremity: COMMON NORMALS: no joint enlargement GENERAL: Yes edema (Trace) Neuro: COMMON NORMALS: moves all extremities; negative for patient oriented x3 SENSORIUM/ORIENTATION: Yes alert Psych: MOOD & AFFECT: Yes depressed mood Skin: COMMON NORMALS: no rashes or lesions noted GENERAL SKIN EXAM: no rashes or lesions noted Urinary Catheter Management: Sherman: Cath Placed During This Visit: yes Reason for Continuing Indwelling Catheter: Acute Urinary Retention or Obstruction Urinary Catheter Date of Insertion: 05/10/22 Urinary Catheter Time of Insertion: 17:13 Data 05/13/22 04:24 05/13/22 04:24 Micro: Microbiology 05/10/22 14:35 Blood Culture - Preliminary Blood Escherichia coli A&P Assessment and plan (1) Acute encephalopathy: She had a good morning, however, in the afternoon restless, more confused. It appears her mental status has been fluctuating quite a bit. Overall slightly better compared to admission, but still quite a bit of fluctuation. This evening also complains of suicidal ideation. Psychiatric recommendations appreciated, Haldol was added. Discussed with her RN. Discussed with her son. Continue to reorient. Continue empiric treatment for pneumonia. Continue supportive care for enterovirus. Continue reassessments of anemia and other underlying conditions as below. Sodium continues to improve, level reviewed and up to 135. Reviewed positive pending blood culture from admission 05/10, positive for E. coli 1/ bottles. Follow-up culture. Continue on ceftriaxone for now although has worsening leukocytosis on review. Follow-up culture sensitivities. Reorient. For now holding off on PT assessment retroperitoneal hematoma. If condition overall improves, consider follow-up with MRI brain due to history of malignancy. Multifactorial acute encephalopathy including metabolic with hyponatremia, as well as acute illness with entero-/rhinovirus infection, worsening respiratory failure, acute CHF, possible recent [place], cannot exclude additional small recent CVA with noted prior multiple basal ganglia CVA on review of CT head findings. Could possibly be related to other causes as well. Additional assessment and management of underlying conditions as below. (2) Retroperitoneal hematoma: Hemoglobin today down to 9.4. Discussed with her son. Discussed gradual continued decline in hemoglobin. Her son is agreeable with plan if she will agree for additional reassessment with scan of him at to see how much it has enlarged, consideration of aspiration in case of further concern of infection of hematoma with E. coli bacteremia. Requiring close hemoglobin monitoring due to retroperitoneal hemorrhage. Repeat blood counts requested. Continue to withhold anticoagulation, hold off on any antiplatelets, pharmacologic DVT prophylaxis. We will hold off on PT assessment for now until hematoma is reassessed given possibly spontaneous hemorrhage at home without any history of fall. Noted acute retroperitoneal iliopsoas hematoma. Patient and family deny any recent falls. Unclear whether this may be somehow related to the prior fracture or whether she may have had a fall which was unwitnessed and not remembered by her as she appears to have some confusion and some memory difficulties at least at the moment with acute encephalopathy. Otherwise possible spontaneous hematoma. Her overall goals of care are limited. (3) Gram-negative bacteremia: Unclear source. Gallbladder unremarkable CT, no right upper quadrant tenderness. No suggestion of colitis, no GI complaints. Does appear to have po ssibly superimposed bacterial pneumonia, although still that would be a good source. E. coli would be a rare cause of mycotic aneurysm. Continue empiric antibiotics for now. Follow-up sensitivity. Consider additional imaging of left hip with MRI if able to tolerate at some point. Infectious disease consultation if possible. (4) Acute CHF: Intake and output reviewed. In negative balance. Continue gentle diuresis with 20 mg IV Lasix Acute diastolic CHF. Results of TTE appreciated, normal EF. Noted moderate pulmonary hypertension. Oxygenation with improvement, down to 2-3 L nasal cannula. Monitor I&O, renal function. Vital signs. Acute CHF, type unknown. Does have prior history of moderate aortic stenosis. Previously EF normal. Possibly diastolic. With lower extremity edema, dyspnea on exertion. Unclear if may have had NSTEMI recently as above. (5) Hyponatremia: Sodium level reviewed, continues to improve. Up to 135. Continue gentle diuresis. Reassess level. Regular diet as tolerating. Difficult to tell etiology as she does have some it appears acute CHF, with some hypervolemia. Hyponatremia may be due to this. Although she also has had poor oral intake recently. May be low solute hyponatremia or combination. Regular diet, encourage oral intake as tolerating. (6) Non-ST elevation [place] (NSTEMI): Remains without chest pain. Downtrending troponin. On TTE normal EF. No obvious regional wall motion overnight. She denies chest pain. Unclear if recovering after minor NSTEMI, or if it was demand ischemia. Depending on goals of care down the road may benefit from further assessment with stress testing. Continue medical therapy as possible, currently with holding antiplatelets. C autiously add beta-lexi. For now not on statin due to rhabdomyolysis. Possible NSTEMI, possibly recently. Appears to have downtrending elevated troponin, 396, 2 hours 354. Complete troponin EKG trend. Does have atrial fibrillation although is not currently in RVR. Maintaining blood pressure. Only mildly more hypoxic than usual. Noted extensive calcification of coronary arteries on CT incidentally seen. She denies chest pain. Monitor on telemetry. (7) Rhabdomyolysis: Resolving. Hold off on statin for now. Elevated CK, unclear cause. 1325, unclear if could be related to recent NSTEMI, or possibly psoas hematoma. Patient and family deny any recent falls or time spent on the floor. (8) Acute exacerbation of chronic obstructive airways disease: Improving. She does not feel any better. Follow-up chest x-ray with patchy op acities. Possibly some persistent CHF, otherwise may be superimposed pneumonia. Continue empiric antibiotic coverage. Requesting urine bacterial antigens. Mild COPD exacerbation with improvement. Continue oxygen support. Scheduled neb treatments. Inhaled steroid. Decrease prednisone to 10 mg. (9) Leukocytosis: Possibly secondary to rhino enterovirus, but cannot exclude other causes. Discussed also concerned with her family regarding iliopsoas hematoma of unclear origin, as well as aortic aneurysm. Consideration of possible mycotic aneurysm, possible bacteremia. Blood cultures have been collected, follow-up. For now continue empiric antibiotic coverage. Patchy input rates persist despite diuresis. Possible pneumonia. Does have perhaps mild COPD exacerbation. Urine nonsuggestive UTI. No GI complaints no suggestion of skin infection or other obvious site of infection. (10) Enteroviral infection: Continues having malaise, although so far no vomiting or diarrhea. Transaminitis with mild improvement. Oxygenation with improvement. Continue isolation. Supportive measures. Support oxygenation. Additional treatment of mild COPD exacerbation as above. No vomiting or diarrhea, monitor for change in symptoms. Has been generally weak, with poor appetite. Regular diet as tolerating. Fall precautions. (11) Normocytic anemia: Acute blood loss anemia with retroperitoneal hemorrhage. Repeat hemoglobin requested. Blood counts appreciated. Normal MCV, numbers appear very similar to recent [facility] visit in ER on 05/05. Wrist Worsening anemia with iliopsoas retroperitoneal hematoma. Hold anticoagulation, no antiplatelets, no DVT prophylaxis other than SCD. Reviewed Hemoccult, negative. (12) Old cerebrovascular accident (CVA) without late effect: Noted multiple prior bilateral basal ganglia CVA. Discussed with her and family. Discussed currently off anticoagulation at risk of CVA secondary to atrial fibrillation. Goals of care certainly very limited. For now monitor blood pressures. Will not at the moment undertake additional work-up but will need to follow-up with regards to this outpatient. Certainly discussed possibility of additional minor stroke contributing to her recent symptoms, although does not appear to necessarily have obvious focal abnormality. (13) Severe depression: Appreciate psychiatry follow-up. Discussed severe depression and suicidal ideation with psychiatrist. Appreciate consultation. Note still pending. They will be revisiting with her with further consideration of options depending on how she is recovering. Due to severe depression with suicidal ideation risk of harm to self of ending her life at home, requested psychiatry consultation. Discussed with psychiatrist. Severe depression with feeling of hopelessness, loss of will to live, no suicidal ideation. States at home could take either overdose on medications or use her pistol to end her life. Discussed with her psychiatry consultation, she is agreeable, will be requesting. Discussed with her family. Currently she is very weak, unable to get up from bed, without access to means and without immediate plans for suicide. (14) Suicidal ideation: As above (15) Goals of care, counseling/discussion: On admission discussing with her and her family, goals of care overall are limited. She has prior stated wishes for DNR as well as advanced directives. She would be okay with receiving medical treatment including antibiotics, blood transfusion if needed, etc. Certainly no aggressive measures. (16) Nicotine addiction: Nicotine replacement as needed (17) AAA (abdominal aortic aneurysm): E. coli noted in 1/3 bottles on blood culture. Follow-up sensitivity. Would be a rare cause of mycotic aneurysm. Continue empiric antibiotic coverage. Consider follow-up with infectious disease. Follow-up blood culture results with some concern of possibility of mycotic aneurysm. Prior blood cultures reviewed. Does not appear to have any positive in the past. Incidentally seen on CT. Discussed with her and family. Will need to follow- up. Additional consideration with her overall constitutional symptoms, leukocytosis, as well as iliopsoas hematoma, off possible mycotic aneurysm. Blood cultures collected, follow-up. (18) Paroxysmal A-fib: Currently in sinus rhythm, continue Cardizem. Hold anticoagulation due to iliopsoas hematoma. Monitor on telemetry. (19) Transaminitis: Reviewed liver parameters -with additional mild improvement. Secondary to rhabdomyolysis. Possibly also secondary to viral infection. Follow-up liver parameters. TTE results appreciated, normal EF, grade 1 diastolic dysfunction. Left atrial dilation. Trace mitral regurgitation. Mild TR. Mild pulmonary hypertension Hepatitis panel reviewed, negative. Follow-up CMP requested (20) Lesion of liver: Multiple lesions of liver appear unchanged from 2019. Follow-up outpatient. Plan History of lung nodule suspected for malignancy, status post radiation therapy. Discussed findings with psychiatrist, radiologist and nursing staff. Attestations Medical Necessity Statement*: Continue admission for assessment and management of acute encephalopathy, retroperitoneal hemorrhage with acute blood loss anemia,, E. coli bacteremia. Diagnoses Acute encephalopathy G93.40 Retroperitoneal hematoma K66.1 Gram-negative bacteremia R78.81 Acute CHF I50.9 Hyponatremia E87.1 Non-ST elevation [place] (NSTEMI) I21.4 Rhabdomyolysis M62.82 Acute exacerbation of chronic obstructive airways disease J44.1 Leukocytosis D72.829 Enteroviral infection B34.1 Normocytic anemia D64.9 Old cerebrovascular accident (CVA) without late effect Z86.73 Severe depression F32.2 Suicidal ideation R45.851 Goals of care, counseling/discussion Z71.89 Nicotine addiction F17.200 AAA (abdominal aortic aneurysm) I71.40 Paroxysmal A-fib I48.0 Transaminitis R74.01 Lesion of liver K76.9
[2022-05-14] VITALS (16 sets, daily range): BP systolic 98–165; BP diastolic 48–77; PULSE 58–92; RESP 14–26; TEMP 36–37.4; O2SAT 88–97
[2022-05-14] MEDS: ipratropium-albuterol 3 mL Neb INHALATION ×4 (02:41→21:14)
[2022-05-14] MEDS: HYDROcodone-acetaminophen 5-325 mg Tablet 1 TAB PO ×3 (02:54→16:02)
[2022-05-14] MEDS: vancomycin 1,250 MG/250 ML PIGGYBACK 250 MG IV ×2 (05:11→17:08)
[2022-05-14 06:59] LABS: Basophils % 0.1 %; Eosinophils # 0.1 10^3/uL (0.0-0.8); Eosinophils % 0.4 %; Hematocrit 32.8 % (37.0-47.0); Hemoglobin 9.8 g/dL (11.5-15.3); Lymphocytes # 0.8 10^3/uL (0.8-4.8); Lymphocytes % 5.4 %; Mean Corpuscular HGB Conc 29.9 g/dL (30.0-36.0); Mean Corpuscular Hemoglobin 26.2 pg (28.0-34.0); Mean Corpuscular Volume 87.7 fl (81-99); Monocytes # 1.4 10^3/uL (0.2-0.9); Monocytes % 9.5 %; Neutrophils # 11.68 10^3/uL (1.8-7.7); Neutrophils % 82.6 %; Nucleated Red Blood Cells % 0.1 %; Platelet Count 275 10^3/cmm (130-400); Red Blood Count 3.74 10^6/uL (4.1-5.3); White Blood Count 14.2 10^3/uL (4.0-10.0)
[2022-05-14 07:17] LABS: Alanine Aminotransferase 47 U/L (0-33); Albumin Level 2.6 g/dL (3.5-5.2); Alkaline Phosphatase 120 U/L (35-105); Anion Gap 11.3 (5-19); Aspartate Amino Transferase 25 U/L (0-32); Blood Urea Nitrogen 16 mg/dL (8-23); Calcium 8.5 mg/dL (8.5-10.5); Carbon Dioxide 28 mmol/L (22-29); Chloride 102 mmol/L (98-107); Globulin 2.6 g/dL (1.3-4.6); Glucose 80 mg/dL (65-115); Osmolality Calculated 284 mOsm/kg (285-295); Potassium 4.3 mmol/L (3.5-5.1); Sodium 137 mmol/L (136-145); Total Bilirubin 0.4 mg/dL (0.15-1.2); Total Protein 5.2 g/dL (6.6-8.7)
[2022-05-14] MEDS: haloperidol 1 mg Tablet 2 MG PO ×2 (08:01→17:09)
[2022-05-14] MEDS: lidocaine 5% Patch 1 PATCH TOPICAL ×2 (08:01→20:31)
[2022-05-14] MEDS: FUROsemide 10 mg/mL SDV 2mL 20 MG IVP (08:02)
[2022-05-14] MEDS: ALPRAZolam 0.5 mg Tablet 0.25 MG PO (08:02)
[2022-05-14] MEDS: budesonide 0.5 mg/2 mL Neb 0.25 MG INHALATION ×2 (08:54→21:14)
[2022-05-14] MEDS: nicotine 4 mg lozenge MUCOUS MEM ×2 (10:26→10:38)
[2022-05-14] MEDS: metoprolol tartrate 25 mg Tablet 12.5 MG PO ×2 (10:26→20:25)
[2022-05-14] MEDS: dilTIAZem 60 mg Tablet 120 MG PO ×2 (10:41→17:08)
[2022-05-14] MEDS: predniSONE 10 mg Tablet PO (10:42)
--- NOTE | 2022-05-14 17:02 | P.PN_ITS ---
Subjective Subjective: Patient was seen this morning, patient's son is at bedside, she is barely able to get up to the side of the bed, is weak, has generalized weakness, she is adamant that she does not want to go to a intermediate as she has had friends that have in the intermediate, she gets upset with her son as she tells him that you are forcing me to go to a intermediate, that you want me to in the intermediate, her son is able to talk to her her, and tell her that hopefully is only temporary, she tells me that she has a family friend, that will help her I advised her that she has generalized weakness, particularly malnutrition, she is not able to take care of herself, at baseline according to son, she needs help with activities of daily living, helps with ambulation is a high fall risk, I have highly recommended for her to go to care home home for rehab, she is a bit agreeable, but keeps changing her mind tells me that she is not ready, that she does not want to go to a intermediate, nursing staff and patient's son are talking to her and reinforcing her need to go to care home Vitals/I&O/Wt Last Vital Signs Temp 98.1 F 05/14/22 08:19 Pulse 78 05/14/22 14:35 Resp 18 05/14/22 14:35 BP 116/75 05/14/22 14:00 Pulse Ox 93 05/14/22 14:35 O2 Del Method 05/14/22 14:35 O2 Flow Rate 4 05/14/22 14:35 05/14/22 05/14/22 05/14/22 06:59 14:59 22:59 Intake Total 360 / 360 Output Total 1700 / 1700 Balance -1340 / -1340 Weight last 48 hrs Weight 67.245 kg Weight 68.209 kg Physical Exam Const: COMMON NORMALS: no acute distress ORIENTATION/CONSCIOUSNESS: Yes awake, Yes oriented to person and Yes oriented to place Resp: COMMON NORMALS: normal respiratory effort, No retractions, No use of accessory muscles and clear to auscultation bilaterally AUSCULTATION: clear to auscultation bilaterally Cardio: COMMON NORMALS: regular rate, regular rhythm, S1 normal heart sound present and S2 normal heart sound present RATE: regular rate RHYTHM: regular rhythm HEART SOUNDS: S1 normal heart sound present and S2 normal heart sound present GI: COMMON NORMALS: Normal to inspection, nondistended, normoactive bowel sounds present and non-tender Extremity: COMMON NORMALS: no pedal edema Neuro: SENSORIUM/ORIENTATION: Yes oriented to person and Yes oriented to place Urinary Catheter Management: Sherman: Cath Placed During This Visit: yes Reason for Continuing Indwelling Catheter: Accurate Measurement of Urinary Output in Critically Ill Patients Urinary Catheter Date of Insertion: 05/10/22 Urinary Catheter Time of Insertion: 17:13 Data 05/14/22 06:45 05/14/22 06:45 Micro: Microbiology 05/13/22 22:25 Legionella Urinary Antigen - Final Urine,Voided Bacterial Antigens - Final 05/10/22 14:35 Blood Culture - Preliminary Blood Escherichia coli A&P Assessment and plan (1) Acute encephalopathy: She had a good morning, however, in the afternoon restless, more confused. It appears her mental status has been fluctuating quite a bit. Overall slightly better compared to admission, but still quite a bit of fluctuation. This evening also complains of suicidal ideation. Psychiatric recommendations appreciated, Haldol was added. Discussed with her RN. Discussed with her son. Continue to reorient. Continue empiric treatment for pneumonia. Continue supportive care for enterovirus. Continue reassessments of anemia and other underlying conditions as below. Sodium continues to improve, level reviewed and up to 135. Reviewed positive pending blood culture from admission 05/10, positive for E. coli 1/ bottles. Follow-up culture. Continue on ceftriaxone for now although has worsening leukocytosis on review. Follow-up culture sensitivities. Reorient. For now holding off on PT assessment retroperitoneal hematoma. If condition overall improves, consider follow-up with MRI brain due to history of malignancy. Multifactorial acute encephalopathy including metabolic with hyponatremia, as well as acute illness with entero-/rhinovirus infection, worsening respiratory failure, acute CHF, possible recent [place], cannot exclude additional small recent CVA with noted prior multiple basal ganglia CVA on review of CT head findings. Could possibly be related to other causes as well. Additional assessment and management of underlying conditions as below. (2) Retroperitoneal hematoma: Hemoglobin today down to 9.4. Discussed with her son. Discussed gradual continued decline in hemoglobin. Her son is agreeable with plan if she will agree for additional reassessment with scan of him at to see how much it has enlarged, consideration of aspiration in case of further concern of infection of hematoma with E. coli bacteremia. Requiring close hemoglobin monitoring due to retroperitoneal hemorrhage. Repeat blood counts requested. Continue to withhold anticoagulation, hold off on any antiplatelets, phar macologic DVT prophylaxis. We will hold off on PT assessment for now until hematoma is reassessed given possibly spontaneous hemorrhage at home without any history of fall. Noted acute retroperitoneal iliopsoas hematoma. Patient and family deny any recent falls. Unclear whether this may be somehow related to the prior fracture or whether she may have had a fall which was unwitnessed and not remembered by her as she appears to have some confusion and some memory difficulties at least at the moment with acute encephalopathy. Otherwise possible spontaneous hematoma. Her overall goals of care are limited. (3) Gram-negative bacteremia: Unclear source. Gallbladder unremarkable CT, no right upper quadrant tenderness. No suggestion of colitis, no GI complaints. Does appear to have possibly superimposed bacterial pneumonia, although still that would be a good source. E. coli would be a rare cause of mycotic aneurysm. Continue empiric antibiotics for now. Follow-up sensitivity. Consider additional imaging of left hip with MRI if able to tolerate at some point. Infectious disease consultation if possible. (4) Acute CHF: Intake and output reviewed. In negative balance. Continue gentle diuresis with 20 mg IV Lasix Acute diastolic CHF. Results of TTE appreciated, normal EF. Noted moderate pulmonary hypertension. Oxygenation with improvement, down to 2-3 L nasal cannula. Monitor I&O, renal function. Vital signs. Acute CHF, type unknown. Does have prior history of moderate aortic stenosis. Previously EF normal. Possibly diastolic. With lower extremity edema, dyspnea on exertion. Unclear if may have had NSTEMI recently as above. (5) Hyponatremia: Sodium level reviewed, continues to improve. Up to 135. Continue gentle diuresis. Reassess level. Regular diet as tolerating. Difficult to tell etiology as she does have some it appears acute CHF, with some hypervolemia. Hyponatremia may be due to this. Although she also has had poor oral intake recently. May be low solute hyponatremia or combination. Regular diet, encourage oral intake as tolerating. (6) Non-ST elevation [place] (NSTEMI): Remains without chest pain. Downtrending troponin. On TTE normal EF. No obvious regional wall motion overnight. She denies chest pain. Unclear if recovering after minor NSTEMI, or if it was demand ischemia. Depending on goals of care down the road may benefit from further assessment with stress testing. Continue medical therapy as possible, currently with holding antiplatelets. Cautiously add beta-lexi. For now not on statin due to rhabdomyolysis. Possible NSTEMI, possibly recently. Appears to have downtrending elevated troponin, 396, 2 hours 354. Complete troponin EKG trend. Does have atrial fibrillation although is not currently in RVR. Maintaining blood pressure. Only mildly more hypoxic than usual. Noted extensive calcification of coronary arteries on CT incidentally seen. She denies chest pain. Monitor on telemetry. (7) Rhabdomyolysis: Resolving. Hold off on statin for now. Elevated CK, unclear cause. 1325, unclear if could be related to recent NSTEMI, or possibly psoas hematoma. Patient and family deny any recent falls or time spent on the floor. (8) Acute exacerbation of chronic obstructive airways disease: Improving. She does not feel any better. Follow-up chest x-ray with patchy opacities. Possibly some persistent CHF, otherwise may be superimposed pneumonia. Continue empiric antibiotic coverage. Requesting urine bacterial antigens. Mild COPD exacerbation with improvement. Continue oxygen support. Scheduled neb treatments. Inhaled steroid. Decrease prednisone to 10 mg. (9) Leukocytosis: Possibly secondary to rhino enterovirus, but cannot exclude other causes. Discussed also concerned with her family regarding iliopsoas hematoma of unclear origin, as well as aortic aneurysm. Consideration of possible mycotic aneurysm, possible bacteremia. Blood cultures have been collected, follow-up. For now continue empiric antibiotic coverage. Patchy input rates persist despite diuresis. Possible pneumonia. Does have perhaps mild COPD exacerbation. Urine nonsuggestive UTI. No GI complaints no suggestion of skin infection or other obvious site of infection. (10) Enteroviral infection: Continues having malaise, although so far no vomiting or diarrhea. Transaminitis with mild improvement. Oxygenation with improvement. Continue isolation. Supportive measures. Support oxygenation. Additional treatment of mild COPD exacerbation as above. No vomiting or diarrhea, monitor for change in symptoms. Has been generally weak, with poor appetite. Regular diet as tolerating. Fall precautions. (11) Normocytic anemia: Acute blood loss anemia with retroperitoneal hemorrhage. Repeat hemoglobin requested. Blood counts appreciated. Normal MCV, numbers appear very similar to recent during visit in ER on 05/05. Wrist Worsening anemia with iliopsoas retroperitoneal hematoma. Hold anticoagulation, no antiplatelets, no DVT prophylaxis other than SCD. Reviewed Hemoccult, negative. (12) Old cerebrovascular accident (CVA) without late effect: Noted multiple prior bilateral basal ganglia CVA. Discussed with her and family. Discussed currently off anticoagulation at risk of CVA secondary to atrial fibrillation. Goals of care certainly very limited. For now monitor blood pressures. Will not at the moment undertake additional work-up but will need to follow-up with regards to this outpatient. Certainly discussed possibility of additional minor stroke contributing to her recent symptoms, although does not appear to necessarily have obvious focal abnormality. (13) Severe depression: Appreciate psychiatry follow-up. Discussed severe depression and suicidal ideation with psychiatrist. Appreciate consultation. Note still pending. They will be revisiting with her with further consideration of options depending on how she is recovering. Due to severe depression with suicidal ideation risk of harm to self of ending her life at home, requested psychiatry consultation. Discussed with psychiatrist. Severe depression with feeling of hopelessness, loss of will to live, no suicidal ideation. States at home could take either overdose on medications or use her pistol to end her life. Discussed with her psychiatry consultation, she is agreeable, will be requesting. Discussed with her family. Currently she is very weak, unable to get up from bed, without access to means and without immediate plans for suicide. (14) Suicidal ideation: As above (15) Goals of care, counseling/discussion: On admission discussing with her and her family, goals of care overall are limited. She has prior stated wishes for DNR as well as advanced directives. She would be okay with receiving medical treatment including antibiotics, blood transfusion if needed, etc. Certainly no aggressive measures. (16) Nicotine addiction: Nicotine replacement as needed (17) AAA (abdominal aortic aneurysm): E. coli noted in 1/3 bottles on blood culture. Follow-up sensitivity. Would be a rare cause of mycotic aneurysm. Continue empiric antibiotic coverage. Consider follow-up with infectious disease. Follow-up blood culture results with some concern of possibility of mycotic aneurysm. Prior blood cultures reviewed. Does not appear to have any positive in the past. Incidentally seen on CT. Discussed with her and family. Will need to follow- up. Additional consideration with her overall constitutional symptoms, leukocytosis, as well as iliopsoas hematoma, off possible mycotic aneurysm. Blood cultures collected, follow-up. (18) Paroxysmal A-fib: Currently in sinus rhythm, continue Cardizem. Hold anticoagulation due to iliopsoas hematoma. Monitor on telemetry. (19) Transaminitis: Reviewed liver parameters -with additional mild improvement. Secondary to rha bdomyolysis. Possibly also secondary to viral infection. Follow-up liver parameters. TTE results appreciated, normal EF, grade 1 diastolic dysfunction. Left atrial dilation. Trace mitral regurgitation. Mild TR. Mild pulmonary hypertension Hepatitis panel reviewed, negative. Follow-up CMP requested (20) Lesion of liver: Multiple lesions of liver appear unchanged from 2019. Follow-up outpatient. (21) Severe depression: (22) DVT, bilateral lower limbs: Qualifiers: Affected thrombotic vein of extremity: unspecified vein of extremity Chronicity: unspecified Qualified Code(s): I82.403 - Acute embolism and thrombosis of unspecified deep veins of lower extremity, bilateral Plan Acute encephalopathy -Multifactorial from depression, E. coli bacteremia, retroperitoneal hematoma, prolonged hospitalization -Overall improving -Monitor blood cultures, monitor for fevers -Has underlying severe depression, also contributing has a history of malignancy, will consider MRI based on clinical progress Retroperitoneal hematoma -Monitor hemoglobin -Does complain of back pain, side pain -Hold NT platelet therapy, hold anticoagulant therapy Acute retroperitoneal iliopsoas -Fall risk precautions -PT OT -Possible concerns for infected hematoma, continue antibiotic therapy vancomy joy, Rocephin we will consider de-escalating vancomycin Acute CHF exacerbation, diastolic -Overall clinically improving -Continue Lasix 20 mg IV push daily Hyponatremia, continue to monitor NSTEMI -No chest pain complaints -Telemetry monitoring Rhabdomyolysis, hold off on statins, continue to monitor Acute COPD exacerbation, has chronic COPD on 4 L, continue to monitor, on 10 mg p.o. prednisone Enteroviral infections, continue to monitor Acute blood loss anemia, for retroperitoneal bleed, monitor Noted to have multiple bilateral basal ganglia CVA Severe depression, psychiatry consulted E. coli bacteremia -Does have abdominal aortic aneurysm -Does have retroperitoneal, Kranthi with iliopsoas hematoma. -Continue Rocephin Leukocytosis, 14.2, neutrophilia, monitor Paroxysmal atrial fibrillation, continue Cardizem, hold off on anticoagulation due to hematoma, retroperitoneal beed History of lung nodule suspected for malignancy, status post radiation therapy. Discussed findings with psychiatrist, radiologist and nursing staff. Attestations Medical Necessity Statement*: Patient requires hospitalization for retroperitoneal hematoma, E. coli bacteremia, acute blood loss anemia, severe depression, leukocytosis, paroxysmal A-fib, acute encephalopathy Diagnoses Acute encephalopathy G93.40 Retroperitoneal hematoma K66.1 Gram-negative bacteremia R78.81 Acute CHF I50.9 Hyponatremia E87.1 Non-ST elevation [place] (NSTEMI) I21.4 Rhabdomyolysis M62.82 Acute exacerbation of chronic obstructive airways disease J44.1 Leukocytosis D72.829 Enteroviral infection B34.1 Normocytic anemia D64.9 Old cerebrovascular accident (CVA) without late effect Z86.73 Severe depression F32.2 Suicidal ideation R45.851 Goals of care, counseling/discussion Z71.89 Nicotine addiction F17.200 AAA (abdominal aortic aneurysm) I71.40 Paroxysmal A-fib I48.0 Transaminitis R74.01 Lesion of liver K76.9 Severe depression F32.2 DVT, bilateral lower limbs I82.403 Affected thrombotic vein of extremity: unspecified vein of extremity Chronicity: unspecified
[2022-05-14] MEDS: acetaminophen 325 mg Tablet 650 MG PO (17:09)
[2022-05-14] MEDS: fixodent 39 gm Tube 1 APPLIC DENTAL (18:31)
[2022-05-14] MEDS: nystatin 100,000 unit/mL UDC 5 mL 100000 UNIT PO (20:25)
[2022-05-14] MEDS: cefTRIAXone 1,000 MG in sodium chloride 0.9% (plus) 50 ML 100 MG IV (21:11)
[2022-05-15] VITALS (11 sets, daily range): BP systolic 99–138; BP diastolic 53–83; PULSE 65–88; RESP 18–23; TEMP 36.6–37; O2SAT 90–95
[2022-05-15] MEDS: temazepam 15 mg Capsule PO ×2 (01:05→20:20)
[2022-05-15] MEDS: HYDROcodone-acetaminophen 5-325 mg Tablet 1 TAB PO ×3 (01:05→20:20)
[2022-05-15] MEDS: ALPRAZolam 0.5 mg Tablet 0.25 MG PO ×2 (02:39→20:18)
[2022-05-15] MEDS: ipratropium-albuterol 3 mL Neb INHALATION ×4 (02:48→19:26)
[2022-05-15 04:09] LABS: Basophils % 0.1 %; Eosinophils # 0.2 10^3/uL (0.0-0.8); Hematocrit 34.7 % (37.0-47.0); Hemoglobin 10.5 g/dL (11.5-15.3); Lymphocytes % 5.8 %; Mean Corpuscular HGB Conc 30.3 g/dL (30.0-36.0); Mean Corpuscular Hemoglobin 26.1 pg (28.0-34.0); Mean Corpuscular Volume 86.1 fl (81-99); Mean Platelet Volume 9.9 fL (7.4-10.4); Monocytes # 1.1 10^3/uL (0.2-0.9); Monocytes % 6.3 %; Neutrophils # 14.17 10^3/uL (1.8-7.7); Neutrophils % 85.1 %; Nucleated Red Blood Cells % 0 %; Platelet Count 292 10^3/cmm (130-400); Red Blood Count 4.03 10^6/uL (4.1-5.3); White Blood Count 16.7 10^3/uL (4.0-10.0)
[2022-05-15 04:30] LABS: Alanine Aminotransferase 37 U/L (0-33); Albumin Level 2.7 g/dL (3.5-5.2); Alkaline Phosphatase 124 U/L (35-105); Anion Gap 13.4 (5-19); Aspartate Amino Transferase 17 U/L (0-32); Blood Urea Nitrogen 13 mg/dL (8-23); C Reactive Protein 191.4 mg/L (0.0-4.9); Calcium 8.1 mg/dL (8.5-10.5); Carbon Dioxide 27 mmol/L (22-29); Chloride 98 mmol/L (98-107); Globulin 2.9 g/dL (1.3-4.6); Glucose 96 mg/dL (65-115); Osmolality Calculated 280 mOsm/kg (285-295); Potassium 3.4 mmol/L (3.5-5.1); Sodium 135 mmol/L (136-145); Total Bilirubin 0.4 mg/dL (0.15-1.2); Total Protein 5.6 g/dL (6.6-8.7)
[2022-05-15 04:35] LABS: Procalcitonin 0.47 ng/mL (0-0.5)
[2022-05-15] MEDS: vancomycin 1,250 MG/250 ML PIGGYBACK 250 MG IV (04:51)
[2022-05-15] MEDS: budesonide 0.5 mg/2 mL Neb 0.25 MG INHALATION ×2 (08:36→19:26)
--- NOTE | 2022-05-15 08:58 | W.PM.NPUPNS ---
Subjective NPU Subjective: Patient presented today with no concerns but continues to express the same opinion about her suicidal thoughts about her medical comorbidities. We discussed the risks and benefits alternatives of a trial of Remeron and she has agreed to proceed as is documented in this note. Mental Status Exam MSE Comments: This is a slender white female in a hospital gown with limited grooming but adequate eye contact. No abnormal movements except for mild psychomotor retardation. Cooperative with exam in mild to moderate distress. Speech was slightly decreased rate and volume. Mood described as a little down, affect congruent. Thought process organized. Thought content: Patient denied current suicidal or homicidal ideation but does endorse having suicidal thinking or at least a passive wish, there were no delusions reported or noted, she denied any auditory or visual hallucinations. Attention and concentration appeared intact and memory was mostly reliable but none were formally tested. She is alert and oriented x3. Insight and judgment appear fair and impulse control limited. Vitals/I&O/Wt Last Vital Signs Temp 98.6 F 05/15/22 04:00 Pulse 88 05/15/22 08:00 Resp 18 05/15/22 08:00 BP 138/71 05/15/22 04:00 Pulse Ox 93 05/15/22 08:00 O2 Del Method 05/15/22 08:00 O2 Flow Rate 3 05/15/22 08:00 05/14/22 05/15/22 05/15/22 22:59 06:59 14:59 Intake Total 486 / 846 300 / 1146 Output Total 550 / 2250 300 / 2550 Balance -64 / -1404 0 / -1404 Weight last 48 hrs Weight 64.455 kg Weight 67.245 kg Physical Exam Urinary Catheter Management: Sherman: Cath Placed During This Visit: yes Reason for Continuing Indwelling Catheter: Accurate Measurement of Urinary Output in Critically Ill Patients Urinary Catheter Date of Insertion: 05/10/22 Urinary Catheter Time of Insertion: 17:13 Data NPU 05/15/22 03:20 05/15/22 03:20 Micro: Microbiology 05/14/22 19:09 Blood Culture - Preliminary Blood SPECIMEN COLLECTED 05/14/22 19:09 Blood Culture - Preliminary Blood SPECIMEN COLLECTED 05/13/22 22:25 Legionella Urinary Antigen - Final Urine,Voided Bacterial Antigens - Final 05/10/22 14:35 Blood Culture - Preliminary Blood Escherichia coli Microbiology 05/14/22 19:09 Blood Blood Culture - Preliminary SPECIMEN COLLECTED 05/14/22 19:09 Blood Blood Culture - Preliminary SPECIMEN COLLECTED 05/13/22 22:25 Urine,Voided Legionella Urinary Antigen - Final 05/13/22 22:25 Urine,Voided Bacterial Antigens - Final 05/10/22 14:35 Blood Blood Culture - Preliminary Escherichia coli A&P Assessment and plan (1) Nicotine addiction: (2) Suicidal ideation: (3) Severe depression: (4) Acute alteration in mental status: Plan This is a 72-year-old white female with recent history of last and medical decline who presents reporting depression and anxiety and thoughts of lethality. 1. Continue current medication. Recommend Lexapro 10 mg p.o. every morning. Could also consider low-dose Neurontin, BuSpar or propranolol to assist with anxiety. Could also consider Remeron as the antidepressant with the added benefit of assisting with sleep and could get rid of the temazepam. Will continue the low-dose Haldol for the high anxiety agitation. Agreed with plan to start Remeron 15 mg nightly once the patient is gives permission. 2. Currently would not recommend her going home without possible geriatric psychiatry intervention possibly inpatient. 3. We will continue to follow. Attestations NPU Medical Necessity Statement*: N/A. Please see primary team note for medical necessity but will continue to make recommendations in relation to possible inpatient psychiatric services. Coding Level of Care Code Acute Code for Chg Fwd Diagnoses Nicotine addiction F17.200 Suicidal ideation R45.851 Severe depression F32.2 Acute alteration in mental status R41.82
[2022-05-15 09:34] LABS: Erythrocyte Sedimentation Rate 50 mm/hr (0-15); Ferritin 129 ng/mL (15-150); Iron 15 ug/dL (37-145); Total Iron Binding Capacity 213 mcg/dl; Unsaturated Iron Binding 198 ug/dL (112-347)
[2022-05-15] MEDS: nystatin 100,000 unit/mL UDC 5 mL 100000 UNIT PO ×2 (10:17→20:18)
[2022-05-15] MEDS: potassium chloride ER 20 mEq Tablet 40 MEQ PO (10:18)
[2022-05-15] MEDS: dilTIAZem 60 mg Tablet 120 MG PO ×2 (10:18→17:17)
[2022-05-15] MEDS: haloperidol 1 mg Tablet 2 MG PO ×2 (10:19→17:17)
[2022-05-15] MEDS: predniSONE 10 mg Tablet PO (10:20)
[2022-05-15] MEDS: FUROsemide 10 mg/mL SDV 2mL 20 MG IVP (10:20)
[2022-05-15] MEDS: lidocaine 5% Patch 1 PATCH TOPICAL ×2 (10:39→21:03)
[2022-05-15] MEDS: metoprolol tartrate 25 mg Tablet 12.5 MG PO ×2 (10:40→20:19)
[2022-05-15 12:16] LABS: LAB Peripheral Smear Sent for Review
--- NOTE | 2022-05-15 13:58 | CTR_ITS ---
PROCEDURE INFORMATION: Exam: CT Abdomen And Pelvis With Contrast Exam date and time: 05/15/2022 6:45 PM Age: 72 years old Clinical indication: Pain; Other: Peritoneal/psoas hematomas; Prior surgery; Surgery date: 6+ months; Surgery type: Tubal; Left hip; Additional info: Retroperioneal hematoma, psoas hematoma TECHNIQUE: Imaging protocol: Computed tomography of the abdomen and pelvis with contrast. Radiation optimization: All CT scans at this facility use at least one of these dose optimization techniques: automated exposure control; mA and/or kV adjustment per patient size (includes targeted exams where dose is matched to clinical indication); or iterative reconstruction. Contrast material: OMNI 350; Contrast volume: 100 ml; Contrast route: INTRAVENOUS (IV); Other protocol: This patient has received 7 known CTs and 0 known cardiac nuclear medicine studies in the 12 months prior to the current study. COMPARISON: CT abdomen pelvis wo con [id number] 05/05/2022 4:31 AM RADIATION DOSE METRICS: Total DLP (mGy-cm): 499.31 FINDINGS: Lungs: Mild bibasilar subsegmental atelectasis developed from prior study. Liver: Scattered small hypodensities in the liver unchanged likely representing small liver cysts. Gallbladder and bile ducts: Normal. No calcified stones. No ductal dilation. Pancreas: Unremarkable. Main pancreatic duct is not significantly dilated. Spleen: Normal. No splenomegaly. Adrenal glands: Normal. No mass. Kidneys and ureters: Normal. No hydronephrosis. Stomach and bowel: Unremarkable. No obstruction. No mucosal thickening. Appendix: No evidence of appendicitis. Intraperitoneal space: Unremarkable. No free air. No significant fluid collection. Vasculature: The 3.8 cm calcified abdominal aortic aneurysm with internal eccentric mural thrombus resulting in internal free lumen approximately 2 cm unchanged. Extensive atherosclerotic changes of the iliac vessels bilaterally. Lymph nodes: Unremarkable. No enlarged lymph nodes. Urinary bladder: Small amount of air in the urinary bladder presumed secondary to previous catheterization. Reproductive: Small right adnexal cyst unchanged. Bones/joints: Left hip prosthesis creating metallic artifact along the pelvic floor. Soft tissues: Miild enlargement and internal heterogeneity of left psoas muscle left iliac fossa unchanged secondary to ileo psoas hematoma. CT/CT abdomen pelvis w con* [id number] IMPRESSION: 1. Stable small iliopsoas hematoma within the left iliac fossa. 2. 3.8 cm calcified abdominal aortic aneurysm unchanged. 3. Additional chronic findings as above.
--- NOTE | 2022-05-15 13:58 | P.PN_ITS ---
Subjective Subjective: Patient was seen this morning, she is alert to person, to place, not to time she does follow commands, she keeps voicing that she is going to go home, she does not want to go to a retirement, she complains of back pain and abdominal pain this morning, afebrile overnight, no nausea, no vomiting, has diffuse abdominal tenderness Vitals/I&O/Wt Last Vital Signs Temp 98.6 F 05/15/22 04:00 Pulse 87 05/15/22 13:55 Resp 18 05/15/22 13:55 BP 138/71 05/15/22 04:00 Pulse Ox 93 05/15/22 13:55 O2 Del Method 05/15/22 13:55 O2 Flow Rate 3.5 05/15/22 13:55 05/14/22 05/15/22 05/15/22 22:59 06:59 14:59 Intake Total 486 / 846 300 / 1146 Output Total 550 / 2250 300 / 2550 Balance -64 / -1404 0 / -1404 Weight last 48 hrs Weight 64.455 kg Weight 67.245 kg Physical Exam Const: COMMON NORMALS: no acute distress ORIENTATION/CONSCIOUSNESS: Yes awake, Yes oriented to person and Yes oriented to place; not oriented to time Resp: COMMON NORMALS: normal respiratory effort, No retractions, No use of accessory muscles and clear to auscultation bilaterally AUSCULTATION: clear to auscultation bilaterally Cardio: COMMON NORMALS: regular rate, regular rhythm, S1 normal heart sound present and S2 normal heart sound present RATE: regular rate RHYTHM: regular rhythm HEART SOUNDS: S1 normal heart sound present and S2 normal heart sound present GI: COMMON NORMALS: Normal to inspection, nondistended, normoactive bowel sounds present OTHER: Diffuse Abdo tenderness Extremity: COMMON NORMALS: no pedal edema Neuro: SENSORIUM/ORIENTATION: Yes oriented to person, Yes oriented to place and No oriented to time Psych: COMMON NORMALS: mental status grossly normal Urinary Catheter Management: Sherman: Cath Placed During This Visit: yes Reason for Continuing Indwelling Catheter: Accurate Measurement of Urinary Output in Critically Ill Patients Urinary Catheter Date of Insertion: 05/10/22 Urinary Catheter Time of Insertion: 17:13 Data 05/15/22 03:20 05/15/22 03:20 Micro: Microbiology 05/14/22 19:09 Blood Culture - Preliminary Blood SPECIMEN COLLECTED 05/14/22 19:09 Blood Culture - Preliminary Blood SPECIMEN COLLECTED 05/13/22 22:25 Legionella Urinary Antigen - Final Urine,Voided Bacterial Antigens - Final 05/10/22 14:35 Blood Culture - Preliminary Blood Escherichia coli A&P Assessment and plan (1) Acute encephalopathy: She had a good morning, however, in the afternoon restless, more confused. It appears her mental status has been fluctuating quite a bit. Overall slightly better compared to admission, but still quite a bit of fluctuation. This evening also complains of suicidal ideation. Psychiatric recommendations appreciated, Haldol was added. Discussed with her RN. Discussed with her son. Continue to reorient. Continue empiric treatment for pneumonia. Continue supportive care for enterovirus. Continue reassessments of anemia and other underlying conditions as below. Sodium continues to improve, level reviewed and up to 135. Reviewed positive pending blood culture from admission 05/10, positive for E. coli 04/06 bottles. Follow-up culture. Continue on ceftriaxone for now although has worsening leukocytosis on review. Follow-up culture sensitivities. Reorient. For now holding off on PT assessment retroperitoneal hematoma. If condition overall improves, consider follow-up with MRI brain due to history of malignancy. Multifactorial acute encephalopathy including metabolic with hyponatremia, as well as acute illness with entero-/rhinovirus infection, worsening respiratory failure, acute CHF, possible recent FL, cannot exclude additional small recent CVA with noted prior multiple basal ganglia CVA on review of CT head findings. Could possibly be related to other causes as well. Additional assessment and management of underlying conditions as below. (2) Retroperitoneal hematoma: Hemoglobin today down to 9.4. Discussed with her son. Discussed gradual continued decline in hemoglobin. Her son is agreeable with plan if she will agree for additional reassessment with scan of him at to see how much it has enlarged, consideration of aspiration in case of further concern of infection of hematoma with E. coli bacteremia. Requiring close hemoglobin monitoring due to retroperitoneal hemorrhage. Repeat blood counts requested. Continue to withhold anticoagulation, hold off on any antiplatelets, pharmacologic DVT prophylaxis. We will hold off on PT assessment for now until hematoma is reassessed given possibly spontaneous hemorrhage at home without any history of fall. Noted acute retroperitoneal iliopsoas hematoma. Patient and family deny any recent falls. Unclear whether this may be somehow related to the prior fracture or whether she may have had a fall which was unwitnessed and not remembered by her as she appears to have some confusion and some memory difficulties at least at the moment with acute encephalopathy. Otherwise possible spontaneous hematoma. Her overall goals of care are limited. (3) Gram-negative bacteremia: Unclear source. Gallbladder unremarkable CT, no right upper quadrant tenderness. No suggestion of colitis, no GI complaints. Does appear to have possibly superimposed bacterial pneumonia, although still that would be a good source. E. coli would be a rare cause of mycotic aneurysm. Continue empiric antibiotics for now. Follow-up sensitivity. Consider additional imaging of left hip with MRI if able to tolerate at some point. Infectious disease consultation if possible. (4) Acute CHF: Intake and output reviewed. In negative balance. Continue gentle diuresis with 20 mg IV Lasix Acute diastolic CHF. Results of TTE appreciated, normal EF. Noted moderate pulmonary hypertension. Oxygenation with improvement, down to 2-3 L nasal cannula. Monitor I&O, renal function. Vital signs. Acute CHF, type unknown. Does have prior history of moderate aortic stenosis. Previously EF normal. Possibly diastolic. With lower extremity edema, dyspnea on exertion. Unclear if may have had NSTEMI recently as above. (5) Hyponatremia: Sodium level reviewed, continues to improve. Up to 135. Continue gentle diuresis. Reassess level. Regular diet as tolerating. Difficult to tell etiology as she does have some it appears acute CHF, with some hypervolemia. Hyponatremia may be due to this. Although she also has had poor oral intake recently. May be low solute hyponatremia or combination. Regular diet, encourage oral intake as tolerating. (6) Non-ST elevation FL (NSTEMI): Remains without chest pain. Downtrending troponin. On TTE normal EF. No obvious regional wall motion overnight. She denies chest pain. Unclear if recovering after minor NSTEMI, or if it was demand ischemia. Depending on goals of care down the road may benefit from further assessment with stress testing. Continue medical therapy as possible, currently with holding antiplatelets. Cautiously add beta-lexi. For now not on statin due to rhabdomyolysis. Possible NSTEMI, possibly recently. Appears to have downtrending elevated troponin, 396, 2 hours 354. Complete troponin EKG trend. Does have atrial fibrillation although is not currently in RVR. Maintaining blood pressure. Only mildly more hypoxic than usual. Noted extensive calcification of coronary arteries on CT incidentally seen. She denies chest pain. Monitor on telemetry. (7) Rhabdomyolysis: Resolving. Hold off on statin for now. Elevated CK, unclear cause. 1325, unclear if could be related to recent NSTEMI, or possibly psoas hematoma. Patient and family deny any recent falls or time spent on the floor. (8) Acute exacerbation of chronic obstructive airways disease: Improving. She does not feel any better. Follow-up chest x-ray with patchy opacities. Possibly some persistent CHF, otherwise may be superimposed pneumonia. Continue empiric antibiotic coverage. Requesting urine bacterial antigens. Mild COPD exacerbation with improvement. Continue oxygen support. Scheduled neb treatments. Inhaled steroid. Decrease prednisone to 10 mg. (9) Leukocytosis: Possibly secondary to rhino enterovirus, but cannot exclude other causes. Discussed also concerned with her family regarding iliopsoas hematoma of unclear origin, as well as aortic aneurysm. Consideration of possible mycotic aneurysm, possible bacteremia. Blood cultures have been collected, follow-up. For now c ontinue empiric antibiotic coverage. Patchy input rates persist despite diuresis. Possible pneumonia. Does have perhaps mild COPD exacerbation. Urine nonsuggestive UTI. No GI complaints no suggestion of skin infection or other obvious site of infection. (10) Enteroviral infection: Continues having malaise, although so far no vomiting or diarrhea. Transaminitis with mild improvement. Oxygenation with improvement. Continue isolation. Supportive measures. Support oxygenation. Additional treatment of mild COPD exacerbation as above. No vomiting or diarrhea, monitor for change in symptoms. Has been generally weak, with poor appetite. Regular diet as tolerating. Fall precautions. (11) Normocytic anemia: Acute blood loss anemia with retroperitoneal hemorrhage. Repeat hemoglobin requested. Blood counts appreciated. Normal MCV, numbers appear very similar to recent during visit in ER on 05/05. Wrist Worsening anemia with iliopsoas retroperitoneal hematoma. Hold anticoagulation, no antiplatelets, no DVT prophylaxis other than SCD. Reviewed Hemoccult, negative. (12) Old cerebrovascular accident (CVA) without late effect: Noted multiple prior bilateral basal ganglia CVA. Discussed with her and kiah rapp. Discussed currently off anticoagulation at risk of CVA secondary to atrial fibrillation. Goals of care certainly very limited. For now monitor blood pressures. Will not at the moment undertake additional work-up but will need to follow-up with regards to this outpatient. Certainly discussed possibility of additional minor stroke contributing to her recent symptoms, although does not appear to necessarily have obvious focal abnormality. (13) Severe depression: Appreciate psychiatry follow-up. Discussed severe depression and suicidal ideation with psychiatrist. Appreciate consultation. Note still pending. They will be revisiting with her with further consideration of options depending on how she is recovering. Due to severe depression with suicidal ideation risk of harm to self of ending her life at home, requested psychiatry consultation. Discussed with psychiatrist. Severe depression with feeling of hopelessness, loss of will to live, no suicidal ideation. States at home could take either overdose on medications or use her pistol to end her life. Discussed with her psychiatry consultation, she is agreeable, will be requesting. Discussed with her family. Currently she is very weak, unable to get up from bed, without access to means and without immediate plans for suicide. (14) Suicidal ideation: As above (15) Goals of care, counseling/discussion: On admission discussing with her and her family, goals of care overall are limited. She has prior stated wishes for DNR as well as advanced directives. She would be okay with receiving medical treatment including antibiotics, blood transfusion if needed, etc. Certainly no aggressive measures. (16) Nicotine addiction: Nicotine replacement as needed (17) AAA (abdominal aortic aneurysm): E. coli noted in 1/3 bottles on blood culture. Follow-up sensitivity. Would be a rare cause of mycotic aneurysm. Continue empiric antibiotic coverage. Consider follow-up with infectious disease. Follow-up blood culture results with some concern of possibility of mycotic aneurysm. Prior blood cultures reviewed. Does not appear to have any positive in the past. Incidentally seen on CT. Discussed with her and family. Will need to follow- up. Additional consideration with her overall constitutional symptoms, leukocytosis, as well as iliopsoas hematoma, off possible mycotic aneurysm. Blood cultures collected, follow-up. (18) Paroxysmal A-fib: Currently in sinus rhythm, continue Cardizem. Hold anticoagulation due to iliopsoas hematoma. Monitor on telemetry. (19) Transaminitis: Reviewed liver parameters -with additional mild improvement. Secondary to rhabdomyolysis. Possibly also secondary to viral infection. Follow-up liver parameters. TTE results appreciated, normal EF, grade 1 diastolic dysfunction. Left atrial dilation. Trace mitral regurgitation. Mild TR. Mild pulmonary hypertension Hepatitis panel reviewed, negative. Follow-up CMP requested (20) Lesion of liver: Multiple lesions of liver appear unchanged from 2019. Follow-up outpatient. (21) Severe depression: (22) DVT, bilateral lower limbs: Qualifiers: Affected thrombotic vein of extremity: unspecified vein of extremity Chronicity: unspecified Qualified Code(s): I82.403 - Acute embolism and thrombosis of unspecified deep veins of lower extremity, bilateral Plan Acute encephalopathy -Multifactorial from depression, E. coli bacteremia, retroperitoneal hematoma, prolonged hospitalization -Overall improving -Monitor blood cultures, monitor for fevers -Has underlying severe depression, also contributing has a history of malignancy, will consider MRI based on clinical progress Retroperitoneal hematoma -Monitor hemoglobin -Does complain of back pain, side pain, abdominal pain -Hold NT platelet therapy, hold anticoagulant therapy -Due to persistent back pain and will repeat CT scan Acute retroperitoneal iliopsoas -Fall risk precautions -PT OT -Possible concerns for infected hematoma, continue antibiotic therapy vancomycin, Rocephin we will consider de-escalating vancomycin Acute CHF exacerbation, diastolic -Overall clinically improving -Continue Lasix 20 mg IV push daily Hyponatremia, continue to monitor NSTEMI -No chest pain complaints -Telemetry monitoring Rhabdomyolysis, hold off on statins, continue to monitor Acute COPD exacerbation, has chronic COPD on 4 L, continue to monitor, on 10 mg p.o. prednisone Enteroviral infections, continue to monitor Acute blood loss anemia, for retroperitoneal bleed, monitor Noted to have multiple bilateral basal ganglia CVA Severe depression, continues to have severe depression, will likely require geriatric psych placement E. coli bacteremia -Does have abdominal aortic aneurysm -Does have retroperitoneal, Kranthi with iliopsoas hematoma. -Continue Rocephin -Continues to have increasing leukocytosis this morning, CRP elevated ESR elevated, has complaints of abdominal tenderness and abdominal pain and low back pain we will repeat CT scan abdomen pelvis -She does have elevated alk phos, will also evaluate gallbladder on CT, order GGT, lipase Leukocytosis, persistent leukocytosis, repeat cultures, repeat urinalysis Paroxysmal atrial fibrillation, continue Cardizem, hold off on anticoagulation due to hematoma, retroperitoneal beed History of lung nodule suspected for malignancy, status post radiation therapy. Discussed findings with psychiatrist, radiologist and nursing staff. Plan for today repeat cultures, follow inflammatory markers repeat CT scan Attestations Medical Necessity Statement*: Patient requires position for E. coli bacteremia, retroperitoneal iliopsoas hematoma retroperitoneal bleed Diagnoses Acute encephalopathy G93.40 Retroperitoneal hematoma K66.1 Gram-negative bacteremia R78.81 Acute CHF I50.9 Hyponatremia E87.1 Non-ST elevation FL (NSTEMI) I21.4 Rhabdomyolysis M62.82 Acute exacerbation of chronic obstructive airways disease J44.1 Leukocytosis D72.829 Enteroviral infection B34.1 Normocytic anemia D64.9 Old cerebrovascular accident (CVA) without late effect Z86.73 Severe depression F32.2 Suicidal ideation R45.851 Goals of care, counseling/discussion Z71.89 Nicotine addiction F17.200 AAA (abdominal aortic aneurysm) I71.40 Paroxysmal A-fib I48.0 Transaminitis R74.01 Lesion of liver K76.9 Severe depression F32.2 DVT, bilateral lower limbs I82.403 Affected thrombotic vein of extremity: unspecified vein of extremity Chronicity: unspecified
[2022-05-15 14:35] LABS: Gamma Glutamyl Transferase 56 U/L (5-36); Lipase 21 U/L (13-60)
[2022-05-15] MEDS: vancomycin 1,250 MG/250 ML PIGGYBACK 200 MG IV (17:17)
[2022-05-15] MEDS: ferrous sulfate EC 325 mg Tablet PO (17:17)
[2022-05-15] MEDS: iohexol 350 mg/mL 500 mL Btl (per mL) IV (18:54)
[2022-05-15] MEDS: nicotine 4 mg lozenge MUCOUS MEM (20:18)
[2022-05-15] MEDS: cefTRIAXone 1,000 MG in sodium chloride 0.9% (plus) 50 ML 100 MG IV (21:02)
[2022-05-16] VITALS (15 sets, daily range): BP systolic 105–140; BP diastolic 56–94; PULSE 60–86; RESP 16–24; TEMP 36.4–36.9; O2SAT 90–96
[2022-05-16] MEDS: ipratropium-albuterol 3 mL Neb INHALATION ×4 (01:41→19:49)
[2022-05-16] MEDS: vancomycin 1,250 MG/250 ML PIGGYBACK 200 MG IV (04:36)
[2022-05-16 04:38] LABS: Basophils % 0.2 %; Eosinophils # 0.2 10^3/uL (0.0-0.8); Hematocrit 35.5 % (37.0-47.0); Hemoglobin 10.5 g/dL (11.5-15.3); Lymphocytes # 0.8 10^3/uL (0.8-4.8); Lymphocytes % 4.7 %; Mean Corpuscular HGB Conc 29.6 g/dL (30.0-36.0); Mean Corpuscular Hemoglobin 25.2 pg (28.0-34.0); Mean Corpuscular Volume 85.3 fl (81-99); Mean Platelet Volume 9.5 fL (7.4-10.4); Neutrophils # 14.27 10^3/uL (1.8-7.7); Neutrophils % 86.3 %; Nucleated Red Blood Cells % 0 %; Platelet Count 337 10^3/cmm (130-400); Red Blood Count 4.16 10^6/uL (4.1-5.3); White Blood Count 16.5 10^3/uL (4.0-10.0)
[2022-05-16 05:00] LABS: Vancomycin Trough 14.5 ug/mL (10-15)
[2022-05-16 05:08] LABS: Alanine Aminotransferase 35 U/L (0-33); Albumin Level 2.8 g/dL (3.5-5.2); Alkaline Phosphatase 112 U/L (35-105); Anion Gap 13.7 (5-19); Aspartate Amino Transferase 17 U/L (0-32); Blood Urea Nitrogen 11 mg/dL (8-23); C Reactive Protein 179.1 mg/L (0.0-4.9); Calcium 8.3 mg/dL (8.5-10.5); Carbon Dioxide 26 mmol/L (22-29); Chloride 97 mmol/L (98-107); Globulin 2.9 g/dL (1.3-4.6); Glucose 102 mg/dL (65-115); Osmolality Calculated 276 mOsm/kg (285-295); Potassium 3.7 mmol/L (3.5-5.1); Sodium 133 mmol/L (136-145); Total Bilirubin 0.4 mg/dL (0.15-1.2); Total Protein 5.7 g/dL (6.6-8.7)
[2022-05-16 05:09] LABS: Ammonia 19 umol/L (11-51)
--- NOTE | 2022-05-16 07:06 | PM.CONSULT ---
Providers/Reason For Consult Consulting Physician/Specialty*: Kayln Gil MD/ Infectious Disease Reason for Consult*: E. coli bacteremia Requesting Physician: Dr. Anoop Larkin Attending Physician: Paulo Tran MD Primary Care Provider: Thompson Zuluaga MD History of Present Illness History of Present Illness Lisset Murphy is a 72 year old female with a past medical history of advanced COPD, typically on supplemental oxygen, chronic steroids prednisone 5 mg a day, history of DVT, on Eliquis 2.5 mg p.o. twice daily history of recurrent falls, overall deconditioning, significant anxiety and suicidal ideation. She is currently admitted to the hospital since May 10, 2022 with altered mental status. Patient is significantly deconditioned, noted to be chronically ill per review of her past notes. She tested positive for acute viral infection with enterorhinovirus upon initial arrival. As part of her evaluation, her blood cultures returned positive for E. coli on May 10, 2022. Her hospital course has been notable for significant depression, hyponatremia, incidentally discovered retroperitoneal hematoma. Patient has a history of recurrent falls was in the ER as recently as May 05 due to left hip pain with findings of anterior iliac spine fracture. It is possible she may have sustained a fall recently given findings of the hematoma. At the time of my assessment this morning, patient is alert awake oriented. She is able to correctly tell me her name, age, date of , appropriately answer simple questions with regards to pain, her recent birthday etc. She knows she is in the hospital in [place]. She is unable to tell me why exactly she is here but states that it is probably because she fell and hurts all over. She is mildly tachypneic and is requiring assistance at this time to move to the bedside commode. She denies any NVD or abdominal pain at this time. Review of Systems General: Reports: 10 or more systems reviewed and unremarkable except in HPI and below Const: Denies: fever(s), chills or body aches Eyes: Denies: change in vision, blurry vision or photophobia ENMT: Reports: hoarseness; Denies: throat pain, enlarged tonsils, odynophagia or nasal congestion Card: Denies: chest pain, palpitations, irregular heart rhythm, edema, swelling of feet/ankles, lightheadedness, pre-syncope, dyspnea on exertion or orthopnea Resp: Denies: dyspnea, productive cough, non-productive cough, wheezing, stridor, pain on inspiration, change in phlegm color, hemoptysis or chest congestion GI: Denies: abdominal pain, nausea, vomiting, hematemesis, coffee ground emesis, dysphagia, heartburn, diarrhea, constipation, GI cramping, change in stool character, hematochezia or melena : Denies: flank pain, difficulty voiding, dysuria, urinary frequency, urinary urgency, urinary hesitancy or hematuria Musc: Denies: neck pain, back pain, extremity pain, joint swelling, joint warmth or deformity Neuro: Denies: headache(s), numbness in extremities, weakness in extremities, sensory changes, difficulty walking, frequent falls, dizziness, vertigo, behavioral changes, Slurred speech present or seizure-like activity Psych: Denies: anxiety, depression, suicidal ideation or homicidal ideation Endo: Denies: polyuria, polydipsia, tired all the time, cold intolerance or hot flashes Bernard/Lymph: Denies: easy bruising or easy bleeding Medications/Allergies Home Medications Medication Instructions Recorded Confirmed Last Taken Type albuterol sulfate 90 mcg/actuation 2 puff inhalation Q6H PRN 06/20/19 05/10/22 01/25/22 History aerosol inhaler (ProAir HFA) Shortness Of Breath furosemide 20 mg tablet 20 mg PO QAM 02/01/20 05/10/22 05/09/22 History albuterol sulfate 2.5 mg/3 mL 2.5 mg (3 mL) inhalation Q6H PRN 04/22/21 05/10/22 01/25/22 Rx (0.083 %) solution for nebulization bronchospasm #180 mL diltiazem HCl 120 mg tablet 120 mg PO BID 06/16/21 05/10/22 05/10/22 History fluticasone fur. 100 mcg-umeclid 1 inh inhalation DAILY@06/16/21 05/10/22 01/25/22 History 62.5 mcg-vilant 25 mcg inhalat.powder (Trelegy Ellipta) apixaban 2.5 mg tablet (Eliquis) 2.5 mg PO BID #60 tabs 01/01/22 05/10/22 05/10/22 Rx alprazolam 0.25 mg tablet 0.25 mg PO BID PRN Anxiety 01/25/22 05/10/22 Unknown History temazepam 15 mg capsule 15 mg PO BEDTIME PRN sleep 01/25/22 05/10/22 Unknown History Home oxygen #1 ea 02/02/22 05/10/22 Unknown Rx fluticasone propionate 50 1 spray intranasal Q12H #16 grams 03/09/22 05/10/22 Unknown Rx mcg/actuation nasal spray,suspension hydrocodone 5 mg-acetaminophen 325 1 tab PO Q6H PRN pain #14 tabs 05/05/22 05/10/22 05/10/22 Rx mg tablet prednisone 5 mg tablet 5 mg PO DAILY 05/10/22 05/10/22 05/09/22 History Allergies Allergy/AdvReac Type Severity Reaction Status Date / Time shrimp Allergy ADR-Nausea Uncoded 02/05/22 09:10 Current Medications Generic Name Dose Route Start Last Admin Trade Name Freq PRN Reason Stop Dose Admin Acetaminophen 650 mg 05/10/22 21:58 05/14/22 17:09 Acetaminophen 325 Mg Tablet PO 650 mg Q6H PRN Administration Mild/Mod Pain Or Temp >/= 101 Hydrocodone Bitart/Acetaminophen 1 tab 05/10/22 21:58 05/15/22 20:20 Hydrocodone-Acetaminophen 5-325 Mg Tablet PO 1 tab Q6H PRN Administration pain Albuterol/Ipratropium 3 ml 05/11/22 02:00 05/16/22 01:41 Ipratropium-Albuterol 3 Ml Neb INHALATION 3 ml Q6H.RESP GÓMEZ Administration Albuterol/Ipratropium 3 ml 05/11/22 14:50 05/11/22 23:05 Ipratropium-Albuterol 3 Ml Neb INHALATION 3 ml Q4H.RESPIRATORY PRN Administration SHORTNESS OF BREATH Alprazolam 0.25 mg 05/10/22 22:08 05/15/22 20:18 Alprazolam 0.5 Mg Tablet PO 0.25 mg BID PRN Administration Anxiety Budesonide 0.25 mg 05/11/22 20:00 05/15/22 19:26 Budesonide 0.5 Mg/2 Ml Neb INHALATION 0.25 mg BID.RESPIRATORY GÓMEZ Administration Denture Adhesive 1 applic 05/14/22 17:23 05/14/22 18:31 Fixodent 39 Gm Tube DENTAL 1 applic PRN PRN Administration denture adhesive Diltiazem HCl 120 mg 05/11/22 09:00 05/15/22 17:17 Diltiazem 60 Mg Tablet PO 120 mg BID GÓMEZ Administration Ferrous Sulfate 325 mg 05/15/22 18:00 05/15/22 17:17 Ferrous Sulfate Ec 325 Mg Tablet PO 325 mg BIDWM GÓMEZ Administration Furosemide 20 mg 05/11/22 09:00 05/15/22 10:20 Furosemide 10 Mg/Ml Sdv 2ml IVP 20 mg DAILY GÓMEZ Administration Haloperidol 2 mg 05/13/22 17:00 05/15/22 17:17 Haloperidol 1 Mg Tablet PO 2 mg BID GÓMEZ Administration Ceftriaxone Sodium 1,000 mg/ 50 mls @ 100 mls/hr 05/10/22 22:00 05/15/22 21:40 Sodium Chloride IV Infused Q24H GÓMEZ Infusion Protocol Vancomycin/PEG/NADA/Lysine/Water 1,250 mg in 250 mls @ 250 mls/hr 05/11/22 05:00 05/16/22 06:35 Vancocin IV Infused Q12H GÓMEZ Infusion Lanolin 1 applic 05/13/22 14:50 05/13/22 18:57 Lanolin Oint 7 Gm TOPICAL 1 applic PRN PRN Administration DRYNESS Lidocaine 1 patch 05/13/22 18:15 05/15/22 21:03 Lidocaine 5% Patch TOPICAL 1 patch [id number] GÓMEZ Administration Metoprolol Tartrate 12.5 mg 05/11/22 21:00 05/15/22 20:19 Metoprolol Tartrate 25 Mg Tablet PO 12.5 mg BID@0900,2100 GÓMEZ Administration Nicotine Polacrilex 4 mg 05/10/22 21:58 05/15/22 20:18 Nicotine 4 Mg Lozenge MUCOUS MEM 4 mg Q2H PRN Administration NICOTINE CRAVINGS Nystatin 100,000 unit 05/14/22 21:00 05/15/22 20:18 Nystatin 100,000 Unit/Ml Udc 5 Ml PO 100,000 unit QID GÓMEZ Administration Prednisone 10 mg 05/14/22 09:00 05/15/22 10:20 Prednisone 10 Mg Tablet PO 10 mg DAILY GÓMEZ Administration Temazepam 15 mg 05/10/22 21:58 05/15/22 20:20 Temazepam 15 Mg Capsule PO 15 mg BEDTIME PRN Administration sleep PFSH Acute PFSH: Medical History Allergic rhinitis Asthma Chronic obstructive pulmonary disease COPD (chronic obstructive pulmonary disease) DVT (deep venous thrombosis) Essential (primary) hypertension -VSS; continue to monitor -continue oral antihypertensives Hypoxia Moderate aortic stenosis -Noted moderate on echo; also noted to have EF=65%, no RWMA, G1DD, moderate pulmonary HTN, mild-moderate TR Nicotine addiction Paroxysmal A-fib Pulmonary nodule Subcapital fracture of left femur -secondary to mechanical fall -s/p bipolar arthroplasty by Dr. Good; POD # 3 -EBL-100 mL -PT/OT evaluations appreciated -strict fall precautions, pain control as needed -bowel regimen -Sherman catheter removed Surgical History H/O tubal ligation Family History Father CAD (coronary artery disease) Mother Cancer Social History Smoking and tobacco status: current every day smoker (4/5 cigs) cigarettes Packs smoked per day: 1.5 Years cigarettes smoked: 50 [ Other cigarette details: Started at age 13 years] Quit status (tobacco): considering quitting Smoking risk assessment/counseling performed?: Yes Alcohol intake: never Counseling given: No Counseling given: No Lives independently: Yes Household members: none Marital status: Current occupational status: retired History of recent travel: No Current gender identity: Female Vitals/I&O/Wt Last Vital Signs Temp 98.5 F 05/16/22 04:00 Pulse 68 05/16/22 05:51 Resp 21 H 05/16/22 04:00 BP 140/64 05/16/22 04:00 Pulse Ox 95 05/16/22 04:00 O2 Del Method 05/16/22 04:00 O2 Flow Rate 4 05/16/22 04:00 05/15/22 05/16/22 05/16/22 22:59 06:59 14:59 Intake Total 310 / 546 250 / 796 Output Total 400 / 1700 Balance 310 / -754 -150 / -904 Weight last 48 hrs Weight 64.954 kg Weight 64.455 kg Physical Exam Narrative: General: Elderly lady lying in bed, chronically ill-appearing, slightly tachypneic with respiratory rate 23 to 25/min. Being assisted by 2 people to move to the bedside commode. HEENT: PERRLA, pupils bilaterally equal and reactive, pallors not present Chest: Scattered wheezing to auscultation bilaterally CVS: S1-S2 regular, no murmurs, no tachycardia, no gallops, no rubs Abdomen: Soft, nontender, no organomegaly, bowel sounds present Neuro: No focal deficits, no facial deformity, AO x3, power 5/5 in all limbs Urinary Catheter Management: Sherman: Cath Placed During This Visit: yes, but has since been removed by the nurse Reason for Continuing Indwelling Catheter: Acute Urinary Retention or Obstruction Urinary Catheter Date of Insertion: 05/10/22 Urinary Catheter Time of Insertion: 17:13 Date Urinary Catheter Removed: 05/15/22 Time Urinary Catheter Discontinued: 15:00 Data 05/16/22 04:28 05/16/22 04:28 Micro: Microbiology 05/14/22 19:09 Blood Culture - Preliminary Blood NEGATIVE TO DATE 05/14/22 19:09 Blood Culture - Preliminary Blood NEGATIVE TO DATE 05/10/22 14:42 Blood Culture - Final Blood NO GROWTH AFTER 5 DAYS Urine culture 05/15/2022: No growth UA May 10: Negative nitrate, negative leukocyte Esterase Blood culture May 14, 2022: No growth to date. Blood culture May 10, 2022: 1 of 3 positive for E. coli E coli M.I.C. RX --------- ------ * Amikacin <=16 S * Amoxicillin/Clavulanate <=8/4 S * Ampicillin >16 R * Ampicillin/Sulbactam 16/8 I * Aztreonam <=4 S * Cefepime <=8 S * Ceftriaxone <=1 S * Cefuroxime <=4 S * Ciprofloxacin >2 R * Gentamicin >8 R * Imipenem <=1 S * Levofloxacin >4 R * Tetracycline <=4 S * Tobramycin 8 I * Trimethoprim/Sulfamethoxazole <=2/38 S * Piperacillin/Tazobactam <=16 S Other data: 05/15/22 CT/CT abdomen pelvis w con* [id number] IMPRESSION: 1. Stable small iliopsoas hematoma within the left iliac fossa. 2. 3.8 cm calcified abdominal aortic aneurysm unchanged. 3. Additional chronic findings as above. 05/10/22 CT CAP IMPRESSION: 1. Small left ilopsoas hematoma possibly spontaneous in origin. Please correlate with appropriate coagulation factors. 2. Diffuse atherosclerotic changes abdominal aorta with 3.8 cm mid abdominal aortic aneurysm. 3. Retroverted uterus with mild expansion of the endometrial cavity that should be further assessed on follow-up nonemergent pelvic ultrasound exam for possible endometrial pathology. Lungs: Diffuse upper lobe emphysematous changes. Scattered subsegmental atelectasis mid to lower lung zones. Pleural spaces: Unremarkable. No pneumothorax. No pleural effusion. 05/10/22 CT/CT head wo con* [id number] IMPRESSION: Diffuse, chronic white matter microvascular changes and indistinct lacunar infarcts both basal ganglia of indeterminate age which could be further assessed on MRI examination clinically warranted. XR/XR chest 1V portable [id number] IMPRESSION: Previously demonstrated lung opacities somewhat more extensive than on the previous examination. 05/30/22 ?prior history of DVT. assess for new DVT. chronic hypoxia. hx ?COPD. ?PROCEDURES: ?Venous duplex imaging was performed in bilateral lower ?extremities. ?The following venous structures were evaluated: common femoral ?vein, profunda vein, proximal portion of the greater saphenous ?vein, superficial femoral vein, and the popliteal vein. ?In addition, the posterior tibial veins were evaluated. ?Serial compression, augmentation maneuvers, and spectral Doppler ?flow evaluation were performed, which were normal, with noted ?highly pulsatile venous compartments bilaterally. Bilaterally, ?the common femoral, superficial femoral, profunda femoral, ?popliteal, posterior tibial, and greater saphenous veins were ?identified and interrogated in the standard fashion.? These ?veins were found to be easily compressible with spontaneous ?blood flow.? No evidence of acite thrombus noted. Also noted ?that bilated superficial femoral veins are small in calibre, ?probably the result of prior DVTs. ?CONCLUSIONS ?No evidence of right lower extremity DVT. ?No evidence of left lower extremity DVT. ?Small caliber femoral veins due to chronic DVT sequlae A&P Assessment and plan (1) Gram-negative bacteremia: 72-year-old lady with multiple comorbidities admitted to the hospital since May 10, 2022 after presenting with altered mental status, generalized weakness, tested positive for rhino enterovirus. Incidentally discovered to have E. coli bacteremia as part of the work-up. Blood culture 1 of 3 positive on May 10 for E. coli, susceptible to ceftriaxone. CT of the abdomen and pelvis without any focal abscess or collections. No evidence of colitis. UA negative upon admission. Incidentally noted retroperitoneal hematoma, suspect that this is likely secondary to her multiple falls at home, most recently it appears patient was in the ER on May 05 when she was diagnosed with anterior inferior iliac spine. Possible that E. coli bacteremia upon admission may have been a result of GI translocation given her rhino enterovirus positivity and being on steroids. Patient did receive higher doses of steroids while in the hospital for COPD exacerbation. Unlikely that her hematomas are related to her bacteremia, likely this is an incidental finding related to bleeding. Strain is susceptible to ceftriaxone, patient is currently on treatment with the same. Recommend to complete 10 days of total therapy (05/11-05/20). (2) Metabolic encephalopathy: At the time of my assessment patient is alert awake oriented x3, able to answer simple conversation questions appropriately. Does not recall the events leading up to admission except for reports multiple falls. (3) Enteroviral infection: Rhino/ entero positive upon admission, appears to be clinically improving in this regard. She is afebrile. (4) Retroperitoneal hematoma: Suspect this is related to recurrent falls while being on Eliquis.. Low suspicion for secondary embolization. (5) Leukocytosis: Persisting leukocytosis, may be contributed by high-dose steroids. Otherwise given clearance of bacteremia, clinical improvement, less likely to be related to persisting E. coli infection. (6) Severe depression: Management per primary team and psychiatry. Consult Attestations Medical Necessity Statement: Per admitting. Coding Level of Care Code Acute Code for Chg Fwd High MDM includes number and complexity of problems actively addressed during encounter, amount and/or complexity of data reviewed/ordered and described risk of complication, morbidity or mortality of management as documented Diagnoses Gram-negative bacteremia R78.81 Metabolic encephalopathy G93.41 Enteroviral infection B34.1 Retroperitoneal hematoma K66.1 Leukocytosis D72.829 Severe depression F32.2
[2022-05-16] MEDS: nystatin 100,000 unit/mL UDC 5 mL 100000 UNIT PO ×4 (08:05→20:56)
[2022-05-16] MEDS: FUROsemide 10 mg/mL SDV 2mL 20 MG IVP (08:06)
[2022-05-16] MEDS: metoprolol tartrate 25 mg Tablet 12.5 MG PO ×2 (08:07→20:56)
[2022-05-16] MEDS: haloperidol 1 mg Tablet 2 MG PO ×2 (08:07→18:07)
[2022-05-16] MEDS: ferrous sulfate EC 325 mg Tablet PO ×2 (08:07→18:07)
[2022-05-16] MEDS: dilTIAZem 60 mg Tablet 120 MG PO ×2 (08:07→18:07)
[2022-05-16] MEDS: HYDROcodone-acetaminophen 5-325 mg Tablet 1 TAB PO ×3 (08:08→20:59)
[2022-05-16] MEDS: predniSONE 10 mg Tablet PO (08:08)
[2022-05-16] MEDS: lidocaine 5% Patch 1 PATCH TOPICAL ×2 (08:11→21:02)
[2022-05-16] MEDS: budesonide 0.5 mg/2 mL Neb 0.25 MG INHALATION ×2 (08:12→19:49)
--- NOTE | 2022-05-16 14:13 | PC.NURSE ---
See paper charting for q 15 minute charting.
--- NOTE | 2022-05-16 14:46 | P.PN_ITS ---
Subjective Subjective: Patient was seen this morning, she is alert to person, place, not to time, she does report feeling down depressed, denies any suicidal ideation, no fevers, no chills, no cough, no abdominal pain she is a bit more cheery this morning, she understands why she is here in the hospital, but she still having a hard time grappling with going to [facility] Vitals/I&O/Wt Last Vital Signs Temp 97.5 F L 05/16/22 08:00 Pulse 67 05/16/22 13:59 Resp 16 05/16/22 13:55 BP 132/56 05/16/22 12:00 Pulse Ox 96 05/16/22 13:55 O2 Del Method 05/16/22 13:55 O2 Flow Rate 4 05/16/22 13:55 05/15/22 05/16/22 05/16/22 22:59 06:59 14:59 Intake Total 310 / 546 250 / 796 500 / 500 Output Total 400 / 1700 Balance 310 / -754 -150 / -904 500 / 500 Weight last 48 hrs Weight 64.954 kg Weight 64.455 kg Physical Exam Const: COMMON NORMALS: no acute distress ORIENTATION/CONSCIOUSNESS: Yes awake, Yes oriented to person and Yes oriented to place; not oriented to time Resp: COMMON NORMALS: normal respiratory effort, No retractions, No use of accessory muscles and clear to auscultation bilaterally AUSCULTATION: clear to auscultation bilaterally Cardio: COMMON NORMALS: regular rate, regular rhythm, S1 normal heart sound present and S2 normal heart sound present RATE: regular rate RHYTHM: regular rhythm HEART SOUNDS: S1 normal heart sound present and S2 normal heart sound present GI: COMMON NORMALS: Normal to inspection, nondistended, normoactive bowel sounds present and non-tender Extremity: COMMON NORMALS: no pedal edema Neuro: SENSORIUM/ORIENTATION: Yes oriented to person, Yes oriented to place and No oriented to time Urinary Catheter Management: Sherman: Cath Placed During This Visit: yes, but has since been removed by the nurse Reason for Continuing Indwelling Catheter: Accurate Measurement of Urinary Output in Critically Ill Patients Urinary Catheter Date of Insertion: 05/10/22 Urinary Catheter Time of Insertion: 17:13 Date Urinary Catheter Removed: 05/15/22 Time Urinary Catheter Discontinued: 15:00 Data 05/16/22 04:28 05/16/22 04:28 Micro: Microbiology 05/10/22 14:35 Blood Culture - Final Blood Escherichia coli 05/15/22 14:17 Urine Culture - Preliminary Urine Catheterized 05/14/22 19:09 Blood Culture - Preliminary Blood NEGATIVE TO DATE 05/14/22 19:09 Blood Culture - Preliminary Blood NEGATIVE TO DATE 05/10/22 14:42 Blood Culture - Final Blood NO GROWTH AFTER 5 DAYS A&P Assessment and plan (1) Acute encephalopathy: She had a good morning, however, in the afternoon restless, more confused. It appears her mental status has been fluctuating quite a bit. Overall slightly better compared to admission, but still quite a bit of fluctuation. This evening also complains of suicidal ideation. Psychiatric recommendations appreciated, Haldol was added. Discussed with her RN. Discussed with her son. Continue to reorient. Continue empiric treatment for pneumonia. Continue supportive care for enterovirus. Continue reassessments of anemia and other underlying conditions as below. Sodium continues to improve, level reviewed and up to 135. Reviewed positive pending blood culture from admission 05/10, positive for E. coli 1/ bottles. Follow-up culture. Continue on ceftriaxone for now although has worsening leukocytosis on review. Follow-up culture sensitivities. Reorient. For now holding off on PT assessment retroperitoneal hematoma. If condition overall improves, consider follow-up with MRI brain due to history of malignancy. Multifactorial acute encephalopathy including metabolic with hyponatremia, as well as acute illness with entero-/rhinovirus infection, worsening respiratory failure, acute CHF, possible recent WI, cannot exclude additional small recent CVA with noted prior multiple basal ganglia CVA on review of CT head findings. Could possibly be related to other causes as well. Additional assessment and management of underlying conditions as below. (2) Retroperitoneal hematoma: Hemoglobin today down to 9.4. Discussed with her son. Discussed gradual continued decline in hemoglobin. Her son is agreeable with plan if she will agree for additional reassessment with scan of him at to see how much it has enlarged, consideration of aspiration in case of further concern of infection of hematoma with E. coli bacteremia. Requiring close hemoglobin monitoring due to retroperitoneal hemorrhage. Repeat blood counts requested. Continue to withhold anticoagulation, hold off on any antiplatelets, pharmacologic DVT prophylaxis. We will hold off on PT assessment for now until hematoma is reassessed given possibly spontaneous hemorrhage at home without any history of fall. Noted acute retroperitoneal iliopsoas hematoma. Patient and family deny any recent falls. Unclear whether this may be somehow related to the prior fracture or whether she may have had a fall which was unwitnessed and not remembered by her as she appears to have some confusion and some memory difficulties at least at the moment with acute encephalopathy. Otherwise possible spontaneous hematoma. Her overall goals of care are limited. (3) Gram-negative bacteremia: Unclear source. Gallbladder unremarkable CT, no right upper quadrant tenderness. No suggestion of colitis, no GI complaints. Does appear to have possibly superimposed bacterial pneumonia, although still that would be a good source. E. coli would be a rare cause of mycotic aneurysm. Continue empiric antibiotics for now. Follow-up sensitivity. Consider additional imaging of left hip with MRI if able to tolerate at some point. Infectious disease consultation if possible. (4) Acute CHF: Intake and output reviewed. In negative balance. Continue gentle diuresis with 20 mg IV Lasix Acute diastolic CHF. Results of TTE appreciated, normal EF. Noted moderate pulmonary hypertension. Oxygenation with improvement, down to 2-3 L nasal cannula. Monitor I&O, renal function. Vital signs. Acute CHF, type unknown. Does have prior history of moderate aortic stenosis. Previously EF normal. Possibly diastolic. With lower extremity edema, dyspnea on exertion. Unclear if may have had NSTEMI recently as above. (5) Hyponatremia: Sodium level reviewed, continues to improve. Up to 135. Continue gentle diuresis. Reassess level. Regular diet as tolerating. Difficult to tell etiology as she does have some it appears acute CHF, with some hypervolemia. Hyponatremia may be due to this. Although she also has had poor oral intake recently. May be low solute hyponatremia or combination. Regular diet, encourage oral intake as tolerating. (6) Non-ST elevation WI (NSTEMI): Remains without chest pain. Downtrending troponin. On TTE normal EF. No ob vious regional wall motion overnight. She denies chest pain. Unclear if recovering after minor NSTEMI, or if it was demand ischemia. Depending on goals of care down the road may benefit from further assessment with stress testing. Continue medical therapy as possible, currently with holding antiplatelets. Cautiously add beta-lexi. For now not on statin due to rhabdomyolysis. Possible NSTEMI, possibly recently. Appears to have downtrending elevated troponin, 396, 2 hours 354. Complete troponin EKG trend. Does have atrial fibrillation although is not currently in RVR. Maintaining blood pressure. Only mildly more hypoxic than usual. Noted extensive calcification of coronary arteries on CT incidentally seen. She denies chest pain. Monitor on telemetry. (7) Rhabdomyolysis: Resolving. Hold off on statin for now. Elevated CK, unclear cause. 1325, unclear if could be related to recent NSTEMI, or possibly psoas hematoma. Patient and family deny any recent falls or time spent on the floor. (8) Acute exacerbation of chronic obstructive airways disease: Improving. She does not feel any better. Follow-up chest x-ray with patchy opacities. Possibly some persistent CHF, otherwise may be superimposed pneumonia. Continue empiric antibiotic coverage. Requesting urine bacterial antigens. Mild COPD exacerbation with improvement. Continue oxygen support. Scheduled neb treatments. Inhaled steroid. Decrease prednisone to 10 mg. (9) Leukocytosis: Possibly secondary to rhino enterovirus, but cannot exclude other causes. Discussed also concerned with her family regarding iliopsoas hematoma of unclear origin, as well as aortic aneurysm. Consideration of possible mycotic aneurysm, possible bacteremia. Blood cultures have been collected, follow-up. For now continue empiric antibiotic coverage. Patchy input rates persist despite diuresis. Possible pneumonia. Does have perhaps mild COPD exacerbation. Urine nonsuggestive UTI. No GI complaints no suggestion of skin infection or other obvious site of infection. (10) Enteroviral infection: Continues having malaise, although so far no vomiting or diarrhea. Transaminitis with mild improvement. Oxygenation with improvement. Continue isolation. Supportive measures. Support oxygenation. Additional gayatri atment of mild COPD exacerbation as above. No vomiting or diarrhea, monitor for change in symptoms. Has been generally weak, with poor appetite. Regular diet as tolerating. Fall precautions. (11) Normocytic anemia: Acute blood loss anemia with retroperitoneal hemorrhage. Repeat hemoglobin requested. Blood counts appreciated. Normal MCV, numbers appear very similar to recent during visit in ER on 05/05. Wrist Worsening anemia with iliopsoas retroperitoneal hematoma. Hold anticoagulation, no antiplatelets, no DVT prophylaxis other than SCD. Reviewed Hemoccult, negative. (12) Old cerebrovascular accident (CVA) without late effect: Noted multiple prior bilateral basal ganglia CVA. Discussed with her and family. Discussed currently off anticoagulation at risk of CVA secondary to atrial fibrillation. Goals of care certainly very limited. For now monitor blood pressures. Will not at the moment undertake additional work-up but will need to follow-up with regards to this outpatient. Certainly discussed possibility of additional minor stroke contributing to her recent symptoms, although does not appear to necessarily have obvious focal abnormality. (13) Severe depression: Appreciate psychiatry follow-up. Discussed severe depression and suicidal ideation with psychiatrist. Appreciate consultation. Note still pending. They will be revisiting with her with further consideration of options depending on how she is recovering. Due to severe depression with suicidal ideation risk of harm to self of ending her life at home, requested psychiatry consultation. Discussed with psychiatrist. Severe depression with feeling of hopelessness, loss of will to live, no suicidal ideation. States at home could take either overdose on medications or use her pistol to end her life. Discussed with her psychiatry consultation, she is agreeable, will be requesting. Discussed with her family. Currently she is very weak, unable to get up from bed, without access to means and without immediate plans for suicide. (14) Suicidal ideation: As above (15) Goals of care, counseling/discussion: On admission discussing with her and her family, goals of care overall are limited. She has prior stated wishes for DNR as well as advanced directives. She would be okay with receiving medical treatment including antibiotics, blood transfusion if needed, etc. Certainly no aggressive measures. (16) Nicotine addiction: Nicotine replacement as needed (17) AAA (abdominal aortic aneurysm): E. coli noted in 1/3 bottles on blood culture. Follow-up sensitivity. Would be a rare cause of mycotic aneurysm. Continue empiric antibiotic coverage. Consider follow-up with infectious disease. Follow-up blood culture results with some concern of possibility of mycotic aneurysm. Prior blood cultures reviewed. Does not appear to have any positive in the past. Incidentally seen on CT. Discussed with her and family. Will need to follow- up. Additional consideration with her overall constitutional symptoms, leukocytosis, as well as iliopsoas hematoma, off possible mycotic aneurysm. Blood cultures collected, follow-up. (18) Paroxysmal A-fib: Currently in sinus rhythm, continue Cardizem. Hold anticoagulation due to iliopsoas hematoma. Monitor on telemetry. (19) Transaminitis: Reviewed liver parameters -with additional mild improvement. Secondary to rhabdomyolysis. Possibly also secondary to viral infection. Follow-up liver parameters. TTE results appreciated, normal EF, grade 1 diastolic dysfunction. Left atrial dilation. Trace mitral regurgitation. Mild TR. Mild pulmonary hypertension Hepatitis panel reviewed, negative. Follow-up CMP requested (20) Lesion of liver: Multiple lesions of liver appear unchanged from 2019. Follow-up outpatient. (21) Severe depression: (22) DVT, bilateral lower limbs: Qualifiers: Affected thrombotic vein of extremity: unspecified vein of extremity Chronicity: unspecified Qualified Code(s): I82.403 - Acute embolism and thrombosis of unspecified deep veins of lower extremity, bilateral Plan Acute encephalopathy -Multifactorial from depression, E. coli bacteremia, retroperitoneal hematoma, prolonged hospitalization -Overall improving -Monitor blood cultures, monitor for fevers -Has underlying severe depression, also contributing has a history of malignancy, will consider MRI based on clinical progress Retroperitoneal hematoma -Monitor hemoglobin, so far stable -Does complain of back pain, side pain, abdominal pain -Hold NT platelet therapy, hold anticoagulant therapy -Repeat CT scan 1. Stable small iliopsoas hematoma within the left iliac fossa. 2. 3.8 cm calcified abdominal aortic aneurysm unchanged. 3. Additional chronic findings as above. Acute retroperitoneal iliopsoas -Hemoglobin stable -Fall risk precautions -PT OT -Very unlikely to be infected hematoma Repeat CT scan 1. Stable small iliopsoas hematoma within the left iliac fossa. 2. 3.8 cm calcified abdominal aortic aneurysm unchanged. 3. Additional chronic findings as above. Acute CHF exacerbation, diastolic -Overall clinically improving -Switch to Lasix 20 mg p.o. daily Hyponatremia, continue to monitor NSTEMI -No chest pain complaints -Telemetry monitoring Rhabdomyolysis, hold off on statins, continue to monitor Acute COPD exacerbation, has chronic COPD on 4 L, continue to monitor, on 10 mg p.o. prednisone Enteroviral infections, continue to monitor Acute blood loss anemia, for retroperitoneal bleed, monitor Noted to have multiple bilateral basal ganglia CVA Severe depression, continues to have severe depression, will likely require geriatric psych placement E. coli bacteremia -Does have abdominal aortic aneurysm, very unlikely to be mycotic aneurysm -Does have retroperitoneal hematoma very likely to be infectious -Repeat blood cultures negative -Only 1 out of 3 blood cultures positive for E. coli -Repeat urine cultures negative -Unlikely to be endocarditis, echocardiogram transthoracic no gross evidence of vegetation -Continue Rocephin -Has persistent leukocytosis, elevated CRP -Repeat CT scan abdomen pelvis, no acute changes -Infectious disease consulted recommended 5 more days of IV antibiotics Rocephin total of 10 days since the sixth Leukocytosis, persistent leukocytosis, repeat cultures so far negative, repeat urine cultures negative afebrile likely secondary to effect of steroids Paroxysmal atrial fibrillation, continue Cardizem, hold off on anticoagulation due to hematoma, retroperitoneal beed History of lung nodule suspected for malignancy, status post radiation therapy. Disposition, working on level 2, placement to [facility], the thought was possibly geriatric psychiatric placement, however patient is not very mobile has severe COPD I do not think that she will be mobile enough to participate in geriatric psych facility but we will see based on her clinical progress Plan for today stop vancomycin continue Rocephin switch to p.o. Lasix monitor for fevers continue to clinically monitor Attestations Medical Necessity Statement*: Patient requires hospitalization due to E. coli bacteremia, retroperitoneal hematoma CHF exacerbation Diagnoses Acute encephalopathy G93.40 Retroperitoneal hematoma K66.1 Gram-negative bacteremia R78.81 Acute CHF I50.9 Hyponatremia E87.1 Non-ST elevation WI (NSTEMI) I21.4 Rhabdomyolysis M62.82 Acute exacerbation of chronic obstructive airways disease J44.1 Leukocytosis D72.829 Enteroviral infection B34.1 Normocytic anemia D64.9 Old cerebrovascular accident (CVA) without late effect Z86.73 Severe depression F32.2 Suicidal ideation R45.851 Goals of care, counseling/discussion Z71.89 Nicotine addiction F17.200 AAA (abdominal aortic aneurysm) I71.40 Paroxysmal A-fib I48.0 Transaminitis R74.01 Lesion of liver K76.9 Severe depression F32.2 DVT, bilateral lower limbs I82.403 Affected thrombotic vein of extremity: unspecified vein of extremity Chronicity: unspecified
--- NOTE | 2022-05-16 17:11 | W.PM.NPUPNS ---
Subjective NPU Subjective: Patient 72-year-old white female currently at the [facility] who had expressed suicidal ideation associated with her continued multiple medical comorbidities. She had expressed that she had felt better today. She had acknowledged significant loss of weight and lack of motivation over the last few months. The patient had expressed desire to return to live at the home of her son but the patient's son had expressed concern about the patient being able to manage her own care as examples were provided of problems in the past including a fall while walking up the steps of the basement leading to a hip fracture that required months of rehabilitation. The patient had acknowledged that she had tremendous difficulties with even walking yet continue to support the idea that she needed to go home. She had reported that she was not interested in considering a long term placement or an assisted living facility. Mental Status Exam MSE Comments: This is a slender white female in a hospital gown with limited grooming but adequate eye contact. No abnormal movements except for mild psychomotor retardation. Cooperative with exam in mild to moderate distress. Speech was slightly decreased rate and decreased in volume. Mood described as a little down, affect congruent. Thought process organized. Thought content: Patient denied current suicidal or homicidal ideation but admitted to having thoughts of killing herself if she were not sent back to her son's home., there were no delusions reported or noted, she denied any auditory or visual hallucinations. Attention and concentration appeared intact and memory was mostly reliable but none were formally tested. She is alert and oriented x3. Insight and judgment appear fair and impulse control limited. Vitals/I&O/Wt Last Vital Signs Temp 97.5 F L 05/16/22 08:00 Pulse 67 05/16/22 13:59 Resp 16 05/16/22 13:55 BP 132/56 05/16/22 12:00 Pulse Ox 96 05/16/22 13:55 O2 Del Method 05/16/22 13:55 O2 Flow Rate 4 05/16/22 13:55 05/16/22 05/16/22 05/16/22 06:59 14:59 22:59 Intake Total 250 / 796 500 / 500 Output Total 400 / 1700 Balance -150 / -904 500 / 500 Weight last 48 hrs Weight 64.954 kg Weight 64.455 kg Physical Exam Urinary Catheter Management: Sherman: Cath Placed During This Visit: yes, but has since been removed by the nurse Reason for Continuing Indwelling Catheter: Accurate Measurement of Urinary Output in Critically Ill Patients Urinary Catheter Date of Insertion: 05/10/22 Urinary Catheter Time of Insertion: 17:13 Date Urinary Catheter Removed: 05/15/22 Time Urinary Catheter Discontinued: 15:00 Data NPU 05/16/22 04:28 05/16/22 04:28 Micro: Microbiology 05/10/22 14:35 Blood Culture - Final Blood Escherichia coli 05/15/22 14:17 Urine Culture - Preliminary Urine Catheterized 05/14/22 19:09 Blood Culture - Preliminary Blood NEGATIVE TO DATE 05/14/22 19:09 Blood Culture - Preliminary Blood NEGATIVE TO DATE 05/10/22 14:42 Blood Culture - Final Blood NO GROWTH AFTER 5 DAYS Microbiology 05/10/22 14:35 Blood Blood Culture - Final Escherichia coli 05/15/22 14:17 Urine Catheterized Urine Culture - Preliminary 05/14/22 19:09 Blood Blood Culture - Preliminary NEGATIVE TO DATE 05/14/22 19:09 Blood Blood Culture - Preliminary NEGATIVE TO DATE 05/10/22 14:42 Blood Blood Culture - Final NO GROWTH AFTER 5 DAYS A&P Assessment and plan (1) Nicotine addiction: (2) Suicidal ideation: (3) Severe depression: (4) Acute alteration in mental status: Plan This is a 72-year-old white female with recent history of last and medical decline who presents reporting depression and anxiety and thoughts of lethality. 1. Continue Lexapro 10 mg daily along with Remeron at 15 mg at night. The patient continues to appear very depressed and would likely benefit from a low-dose stimulant possibly Ritalin at 10 mg twice a day as an adjunct for treating depression. 2. Currently would not recommend her going home without possible geriatric psychiatry intervention possibly inpatient. 3. We will continue to follow. Attestations NPU Medical Necessity Statement*: The patient may still require inpatient psychiatric services after stabilization on the medical unit patient would likely benefit from geropsychiatry input. Coding Level of Care Code Acute Code for Chg Fwd Diagnoses Nicotine addiction F17.200 Suicidal ideation R45.851 Severe depression F32.2 Acute alteration in mental status R41.82
[2022-05-16] MEDS: ALPRAZolam 0.5 mg Tablet 0.25 MG PO (20:56)
[2022-05-16] MEDS: temazepam 15 mg Capsule PO (20:56)
[2022-05-16] MEDS: mirtazapine 15 mg Tablet PO (20:59)
[2022-05-16] MEDS: cefTRIAXone 1,000 MG in sodium chloride 0.9% (plus) 50 ML 100 MG IV (21:19)
[2022-05-17] VITALS (17 sets, daily range): BP systolic 99–150; BP diastolic 40–68; PULSE 51–72; RESP 15–20; TEMP 36.1–36.8; O2SAT 92–97
[2022-05-17] MEDS: ipratropium-albuterol 3 mL Neb INHALATION ×4 (02:47→21:20)
[2022-05-17 05:11] LABS: Basophils # 0.1 10^3/uL (0.0-0.1); Basophils % 0.5 %; Eosinophils # 0.3 10^3/uL (0.0-0.8); Eosinophils % 2.6 %; Hematocrit 32.4 % (37.0-47.0); Hemoglobin 10.1 g/dL (11.5-15.3); Lymphocytes % 9.6 %; Mean Corpuscular HGB Conc 31.2 g/dL (30.0-36.0); Mean Corpuscular Volume 83.5 fl (81-99); Mean Platelet Volume 10.2 fL (7.4-10.4); Monocytes # 1.2 10^3/uL (0.2-0.9); Monocytes % 11.6 %; Neutrophils # 7.66 10^3/uL (1.8-7.7); Neutrophils % 73.1 %; Nucleated Red Blood Cells % 0 %; Platelet Count 303 10^3/cmm (130-400); Red Blood Count 3.88 10^6/uL (4.1-5.3); Red Cell Distribution Width 14.1 % (12.1-15.1); White Blood Count 10.5 10^3/uL (4.0-10.0)
[2022-05-17] MEDS: methylphenidate 10 mg Tablet 5 MG PO ×2 (05:12→12:23)
[2022-05-17 05:37] LABS: Blood Urea Nitrogen 9 mg/dL (8-23); Carbon Dioxide 24 mmol/L (22-29); Chloride 99 mmol/L (98-107); Glucose 80 mg/dL (65-115); Osmolality Calculated 276 mOsm/kg (285-295); Sodium 134 mmol/L (136-145)
[2022-05-17 05:40] LABS: Anion Gap 15.2 (5-19); Potassium 4.2 mmol/L (3.5-5.1)
[2022-05-17 06:14] LABS: Slide Review Slide Review Perform
[2022-05-17] MEDS: dilTIAZem 60 mg Tablet 120 MG PO ×2 (08:07→17:13)
[2022-05-17] MEDS: metoprolol tartrate 25 mg Tablet 12.5 MG PO ×2 (08:07→20:23)
[2022-05-17] MEDS: predniSONE 10 mg Tablet PO (08:07)
[2022-05-17] MEDS: nystatin 100,000 unit/mL UDC 5 mL 100000 UNIT PO ×4 (08:08→20:24)
[2022-05-17] MEDS: FUROsemide 20 mg Tablet PO (08:08)
[2022-05-17] MEDS: ferrous sulfate EC 325 mg Tablet PO ×2 (08:08→17:13)
[2022-05-17] MEDS: lidocaine 5% Patch 1 PATCH TOPICAL (08:09)
[2022-05-17] MEDS: haloperidol 1 mg Tablet 2 MG PO ×2 (08:54→17:14)
[2022-05-17] MEDS: ALPRAZolam 0.5 mg Tablet 0.25 MG PO (09:52)
[2022-05-17] MEDS: HYDROcodone-acetaminophen 5-325 mg Tablet 1 TAB PO ×2 (09:53→20:23)
[2022-05-17 11:44] LABS: THYROID PEROXIDASE ANTIBODIES 1 IU/mL (<9)
[2022-05-17 11:55] LABS: COMPLEMENT COMPONENT C3C 152 mg/dL (83-193); COMPLEMENT COMPONENT C4C 17 mg/dL (15-57)
[2022-05-17 12:33] LABS: CENTROMERE B ANTIBODY <1.0 NEG AI (<1.0 NEG); JO-1 ANTIBODY <1.0 NEG AI (<1.0 NEG); RNP ANTIBODY <1.0 NEG AI (<1.0 NEG); SCL-70 ANTIBODY <1.0 NEG AI (<1.0 NEG); SJOGREN'S ANTIBODY (SS-A) <1.0 NEG AI (<1.0 NEG); SM ANTIBODY <1.0 NEG AI (<1.0 NEG); SS-B <1.0 NEG AI (<1.0 NEG)
[2022-05-17 12:54] LABS: COMPLEMENT, TOTAL (CH50) >60 U/mL (31-60)
--- NOTE | 2022-05-17 13:28 | P.PN_ITS ---
Subjective Subjective: She states she is still having pain in her tailbone, otherwise pain in the left side/left hip has subsided. Breathing is gradually improving. She reports she is weak. She is about to work with therapy. On discussion with her confirms that going to a long-term facility is the safer choice currently. He is asking when she can begin rehabilitation there. She states she was considering whether could stay with her sister, her, her sister is 80 years old and not in the condition to assist with her needs/level of support. Denies suicidal ideation at this time. Vitals/I&O/Wt Last Vital Signs Temp 98.2 F 05/17/22 07:16 Pulse 54 L 05/17/22 11:35 Resp 19 H 05/17/22 11:35 BP 117/40 05/17/22 11:35 Pulse Ox 92 05/17/22 11:35 O2 Del Method 05/17/22 11:35 O2 Flow Rate 4 05/17/22 08:31 05/16/22 05/17/22 05/17/22 22:59 06:59 14:59 Intake Total 290 / 790 440 / 1230 480 / 480 Output Total 401 / 401 Balance -111 / 389 440 / 829 480 / 480 Weight last 48 hrs Weight 65.317 kg Weight 64.954 kg Physical Exam Narrative: Sitting up in chair, about to work with physical therapy. Const: COMMON NORMALS: alert; negative for patient oriented x3 GENERAL APPEARANCE: cooperative HENMT: COMMON NORMALS: oropharynx normal Neck/C-Spine: COMMON NORMALS: no JVD Resp: COMMON NORMALS: normal respiratory effort AUSCULTATION: diminished lung sounds Cardio: COMMON NORMALS: no JVD, regular rhythm, S1 normal heart sound present, S2 normal heart sound present and No murmurs present (Cardio) RHYTHM: regular rhythm HEART SOUNDS: S1 normal heart sound present and S2 normal heart sound present GI: COMMON NORMALS: Normal to inspection, nondistended, normoactive bowel sounds present, Soft to palpation and non-tender PALPATION: Yes Soft to palpation Extremity: COMMON NORMALS: no joint enlargement GENERAL: No edema Neuro: COMMON NORMALS: moves all extremities; negative for patient oriented x3 SENSORIUM/ORIENTATION: Yes alert Psych: MOOD & AFFECT: Yes depressed mood Skin: COMMON NORMALS: no rashes or lesions noted GENERAL SKIN EXAM: no rashes or lesions noted Urinary Catheter Management: Sherman: Cath Placed During This Visit: yes, but has since been removed by the nurse Reason for Continuing Indwelling Catheter: Accurate Measurement of Urinary Output in Critically Ill Patients Urinary Catheter Date of Insertion: 05/10/22 Urinary Catheter Time of Insertion: 17:13 Date Urinary Catheter Removed: 05/15/22 Time Urinary Catheter Discontinued: 15:00 Data 05/17/22 04:28 05/17/22 04:28 Micro: Microbiology 05/15/22 14:17 Urine Culture - Final Urine Catheterized 05/10/22 14:35 Blood Culture - Final Blood Escherichia coli A&P Assessment and plan (1) Gram-negative bacteremia: Reviewed ID physician, prior hospitalist documentation. Continue IV antibiotic coverage with ceftriaxone. (2) Acute exacerbation of chronic obstructive airways disease: Gradually improving. She subjectively feels breathing is slightly easier. Continue prednisone 10 mg. Continue breathing treatments. She is empirically on antibiotics for E. coli bacteremia. (3) Severe depression: Discussed with psychiatry. They will continue follow-up and optimization here while in the hospital. Reviewed psychiatry documentation. Discussing with psychiatry consideration of geriatric psychiatric admission. This would certainly be beneficial, although per discussion with psychiatry who were discussed with prior hospitalist this does not appear to be a possibility given her inability to consistently independently ambulate, as well as chronic oxygen requirement at home usually on 5 L, not likely she would be a candidate for admission to a geriatric psychiatric facility unfortunately. Discussed with case management to see in case there are any meds-psych combined units which could be a consideration, although these may not be possible due to her age. Discussed these difficulties also with her son. Symptomatically she does appear to be doing better. Denies suicidal ideation today. (4) Metabolic encephalopathy: Appears to be improving. Previously with waxing waning mental status and orientation. Currently does appear to be more alert and responsive. Continue to monitor mental status. Reorient. Work with therapy. Continue to treat underlying conditions. (5) Enteroviral infection: Improving. (6) Retroperitoneal hematoma: Blood count reviewed, hemoglobin down to 10.1 today. Repeat blood counts requested. Continue to withhold anticoagulation. Repeat CT reviewed. (7) Leukocytosis: Persisting leukocytosis, may be contributed by high-dose steroids. Improving. (8) Transaminitis: (9) AAA (abdominal aortic aneurysm): Follow-up outpatient (10) Paroxysmal A-fib: (11) Nicotine addiction: (12) Lesion of liver: Follow-up outpatient (13) Old cerebrovascular accident (CVA) without late effect: (14) Acute CHF: Improved. Transitioned to oral Lasix. Continue. Plan Rhabdomyolysis: Improved. Consider statins at discharge. Acute blood loss anemia: Follow-up hemoglobin requested. History of lung nodule suspected for malignancy, status post radiation therapy. Discussed her condition and plans with her son who is in agreement. Attestations Medical Necessity Statement*: Continue admission for assessment management of COPD exacerbation, E. coli bacteremia, severe depression, acute anemia with retroperitoneal hematoma. Diagnoses Gram-negative bacteremia R78.81 Acute exacerbation of chronic obstructive airways disease J44.1 Severe depression F32.2 Metabolic encephalopathy G93.41 Enteroviral infection B34.1 Retroperitoneal hematoma K66.1 Leukocytosis D72.829 Transaminitis R74.01 AAA (abdominal aortic aneurysm) I71.40 Paroxysmal A-fib I48.0 Nicotine addiction F17.200 Lesion of liver K76.9 Old cerebrovascular accident (CVA) without late effect Z86.73 Acute CHF I50.9
[2022-05-17] MEDS: polyethylene glycol 3350 Pkt 17 gm PO (17:14)
--- NOTE | 2022-05-17 17:19 | W.PM.NPUPNS ---
Subjective NPU Subjective: Patient 72-year-old white female currently at the [facility] who had expressed suicidal ideation associated with her continued multiple medical comorbidities. The patient had expressed desire to leave as she stated that she promised to return back here for therapy. She had reported that the physician had stated that she could return home. She repeatedly during the interview reported that it was time for her to leave and initially she had stated that she was worried that her son had not come yet to pick her up. The patient's son soon after had arrived here and had reiterated to her that she was not going to be able to be cared for in his home and she promptly reported that she would contact her sister on the phone who would take her home. The sister had expressed on the phone that she would not be able to manage Palm complicated medical issues due to her age and her own medical concerns. The patient had stated that if she absolutely had to she would go to a detention. She had minimized having any thoughts of hurting herself. Mental Status Exam MSE Comments: This is a slender white female in a hospital gown with limited grooming but adequate eye contact. During the interview, she had become increasingly irritated and she had made efforts to get herself out of bed and proceeded to sit herself on her toilet. There was evidence of psychomotor slowing. Her mood was described as fine. Her affect was mood incongruent and restricted in range. Her thought process appeared perseverative in regards to wishing to go home. It was somewhat illogical her speech was normal in regards to rate rhythm and prosody. Her attention span appeared poor she was alert and oriented to person place and time. She had struggled with abstraction and had particular problems with recognizing the time on a nondigital clock as she appeared to invert the long hand in the short hand when asked about the time. She also appeared to be somewhat agitated but did not have any clear overt delusional thinking. Her insight is impaired. Her judgment is poor. Her impulse control appeared poor as well. Vitals/I&O/Wt Last Vital Signs Temp 97.9 F 05/17/22 16:00 Pulse 62 05/17/22 16:00 Resp 17 05/17/22 16:00 BP 112/54 05/17/22 16:00 Pulse Ox 94 05/17/22 16:00 O2 Del Method 05/17/22 16:00 O2 Flow Rate 4 05/17/22 14:30 05/17/22 05/17/22 05/17/22 06:59 14:59 22:59 Intake Total 440 / 1230 480 / 480 Output Total 300 / 300 Balance 440 / 829 480 / 480 -300 / 180 Weight last 48 hrs Weight 65.317 kg Weight 64.954 kg Physical Exam Urinary Catheter Management: Sherman: Cath Placed During This Visit: yes, but has since been removed by the nurse Reason for Continuing Indwelling Catheter: Accurate Measurement of Urinary Output in Critically Ill Patients Urinary Catheter Date of Insertion: 05/10/22 Urinary Catheter Time of Insertion: 17:13 Date Urinary Catheter Removed: 05/15/22 Time Urinary Catheter Discontinued: 15:00 Data NPU 05/17/22 04:28 05/17/22 04:28 Micro: Microbiology 05/15/22 14:17 Urine Culture - Final Urine Catheterized 05/10/22 14:35 Blood Culture - Final Blood Escherichia coli Microbiology 05/15/22 14:17 Urine Catheterized Urine Culture - Final 05/10/22 14:35 Blood Blood Culture - Final Escherichia coli A&P Assessment and plan (1) Nicotine addiction: (2) Suicidal ideation: (3) Severe depression: (4) Acute alteration in mental status: Plan This is a 72-year-old white female with recent history of last and medical decline who presents reporting depression and anxiety and thoughts of lethality. 1. Continue Lexapro 10 mg daily along with Remeron at 15 mg at night. Continue Haldol 2mg bid as needed for agitation as patient does appear agitated. 2. This patient may be candidate for guardianship, not able to make reasonable medical decisions regarding her care despite being informed of risks and benefits of care. Family not able to manage her care at home. 3. We will continue to follow. Attestations NPU Medical Necessity Statement*: Patient likely not a candidate to geropsychiatric unit given her likelihood of needing some level of senior care. Coding Level of Care Code Acute Code for Chg Fwd Diagnoses Nicotine addiction F17.200 Suicidal ideation R45.851 Severe depression F32.2 Acute alteration in mental status R41.82
[2022-05-17] MEDS: temazepam 15 mg Capsule PO (20:22)
[2022-05-17] MEDS: mirtazapine 15 mg Tablet PO (20:23)
[2022-05-17] MEDS: budesonide 0.5 mg/2 mL Neb 0.25 MG INHALATION (21:20)
[2022-05-17] MEDS: cefTRIAXone 1,000 MG in sodium chloride 0.9% (plus) 50 ML 100 MG IV (21:31)
[2022-05-18] VITALS (9 sets, daily range): BP systolic 118–140; BP diastolic 54–75; PULSE 63–91; RESP 16–21; TEMP 36.6–36.7; O2SAT 90–95
[2022-05-18] MEDS: ipratropium-albuterol 3 mL Neb INHALATION ×3 (02:46→19:49)
[2022-05-18 03:14] LABS: Hemoglobin 10.2 g/dL (11.5-15.3)
[2022-05-18] MEDS: methylphenidate 10 mg Tablet 5 MG PO ×2 (05:31→12:35)
[2022-05-18] MEDS: HYDROcodone-acetaminophen 5-325 mg Tablet 1 TAB PO ×2 (05:37→21:14)
[2022-05-18] MEDS: polyethylene glycol 3350 Pkt 17 gm PO ×2 (08:09→17:52)
[2022-05-18] MEDS: lidocaine 5% Patch 1 PATCH TOPICAL (08:09)
[2022-05-18] MEDS: nystatin 100,000 unit/mL UDC 5 mL 100000 UNIT PO ×4 (08:09→22:06)
[2022-05-18] MEDS: FUROsemide 20 mg Tablet PO (08:10)
[2022-05-18] MEDS: predniSONE 10 mg Tablet PO (08:10)
[2022-05-18] MEDS: metoprolol tartrate 25 mg Tablet 12.5 MG PO ×2 (08:10→21:14)
[2022-05-18] MEDS: dilTIAZem 60 mg Tablet 120 MG PO ×2 (08:10→17:51)
[2022-05-18] MEDS: ferrous sulfate EC 325 mg Tablet PO ×2 (08:11→17:51)
[2022-05-18] MEDS: haloperidol 1 mg Tablet 2 MG PO ×2 (08:11→17:51)
[2022-05-18 10:59] LABS: ANA PATTERN Nuclear, Speckled; ANA SCREEN, IFA POSITIVE (NEGATIVE)
--- NOTE | 2022-05-18 14:17 | P.NPUPN_ITS ---
Subjective NPU Subjective: Patient 72-year-old white female currently at the [facility] who had expressed suicidal ideation associated with her continued multiple medical comorbidities. Patient was seen on rounds and minimized any suicidal thoughts at this time. She had reported that she may have been a bit confused yesterday. She had minimized any depressed mood. She had expressed desire to continue to live and stated that it was hard for her to live while receiving support of others as she had always lived independently before. The patient had reported that she had spoken with the physician this morning and she reported being agreeable to staying for a few days. She had reported a loss of some interest over the past few months over previously enjoyable activities. She had also reported difficulties with sleep continuity disruption for several weeks. She had reported that she would be willing to go to a retirement if it was absolutely necessary. Mental Status Exam MSE Comments: This is a slender white female in a hospital gown with limited grooming but adequate eye contact. She was pleasant and conversant throughout much of the interview with normal rate rhythm and prosody in regards to her speech. Her mood was described as pretty good . Her affect appeared brighter today. There was no clear evidence of delusional thinking. She did not appear to be responding to internal stimuli. She was alert and oriented to person place time and situation. Her recent and remote memory appeared intact. She was able to write a sentence and was able to appropriately tell time today with no evidence of clouding of consciousness at the time. Her insight remained poor. Her judgment appeared guarded at this time. Her impulse control remained guarded as well. Vitals/I&O/Wt Last Vital Signs Temp 98.0 F 05/18/22 07:30 Pulse 72 05/18/22 07:30 Resp 18 05/18/22 07:30 BP 134/75 05/18/22 07:30 Pulse Ox 94 05/18/22 07:30 O2 Del Method 05/18/22 07:30 O2 Flow Rate 4 05/18/22 02:47 05/17/22 05/18/22 05/18/22 22:59 06:59 14:59 Intake Total 530 / 1010 60 / 1070 480 / 480 Output Total 300 / 300 200 / 500 Balance 230 / 710 -140 / 570 480 / 480 Weight last 48 hrs Weight 65.317 kg Physical Exam Urinary Catheter Management: Sherman: Cath Placed During This Visit: yes, but has since been removed by the nurse Reason for Continuing Indwelling Catheter: Accurate Measurement of Urinary Output in Critically Ill Patients Urinary Catheter Date of Insertion: 05/10/22 Urinary Catheter Time of Insertion: 17:13 Date Urinary Catheter Removed: 05/15/22 Time Urinary Catheter Discontinued: 15:00 Data NPU 05/18/22 02:53 05/17/22 04:28 Micro: Microbiology 05/15/22 14:17 Urine Culture - Final Urine Catheterized Microbiology 05/15/22 14:17 Urine Catheterized Urine Culture - Final A&P Assessment and plan (1) Nicotine addiction: (2) Suicidal ideation: (3) Severe depression: (4) Acute alteration in mental status: Plan This is a 72-year-old white female with recent history of last and medical decline who presents reporting depression and anxiety and thoughts of lethality. 1. Continue Lexapro 10 mg daily along with Remeron at 15 mg at night. Continue Haldol as prescribed as patient had appeared calmer today. 2. This patient may require guardianship, not able to make reasonable medical decisions regarding her care despite being informed of risks and benefits of care. Family not able to manage her care at home. The patient's son and patient's aunt appear to be supportive of the idea of patient needing to live elsewhere (not returning to either of their homes) 3. We will continue to follow. Attestations NPU Medical Necessity Statement*: Patient likely not a candidate to geropsychiatric unit given her likelihood of needing some level of skilled nu rsing. Coding Level of Care Code Acute Code for Chg Fwd Diagnoses Nicotine addiction F17.200 Suicidal ideation R45.851 Severe depression F32.2 Acute alteration in mental status R41.82
--- NOTE | 2022-05-18 17:49 | P.PN_ITS ---
Subjective Subjective: This morning she reports she is feeling tired. However, discussing with her minimize interruptions overnight she does states she got better rest. This morning she is not in pain. She reports her breathing has been getting better. She denies left hip/flank pain. She reports her mood is better today. Denies suicidal ideation. Discussed with her this morning, however, she also stated that she had made plans with her sister to go to her place. Discussing with her sister last night she had stated they made no such plans., Bringing up to her attention she corrects herself, states right, that her sister told her she could not come over until she was well enough. Vitals/I&O/Wt Last Vital Signs Temp 98.0 F 05/18/22 07:30 Pulse 70 05/18/22 15:13 Resp 18 05/18/22 14:00 BP 134/75 05/18/22 07:30 Pulse Ox 95 05/18/22 14:00 O2 Del Method 05/18/22 14:00 O2 Flow Rate 4 05/18/22 14:00 05/18/22 05/18/22 05/18/22 06:59 14:59 22:59 Intake Total 60 / 1070 480 / 480 240 / 720 Output Total 200 / 500 Balance -140 / 570 480 / 480 240 / 720 Weight last 48 hrs Weight 65.317 kg Physical Exam Narrative: Sitting up in bed. Const: COMMON NORMALS: patient oriented x3 and alert GENERAL APPEARANCE: cooperative and frail appearing ORIENTATION/CONSCIOUSNESS: Yes awake OTHER: Today she appears in better spirits. HENMT: COMMON NORMALS: oropharynx normal Neck/C-Spine: COMMON NORMALS: no JVD Resp: COMMON NORMALS: normal respiratory effort and clear to auscultation bilaterally AUSCULTATION: clear to auscultation bilaterally Cardio: COMMON NORMALS: no JVD, regular rhythm, S1 normal heart sound present, S2 normal heart sound present and No murmurs present (Cardio) RHYTHM: regular rhythm HEART SOUNDS: S1 normal heart sound present and S2 normal heart sound present GI: COMMON NORMALS: Normal to inspection, nondistended, normoactive bowel sounds present, Soft to palpation and non-tender PALPATION: Yes Soft to palpation Extremity: COMMON NORMALS: no joint enlargement and no pedal edema Neuro: COMMON NORMALS: patient oriented x3 and moves all extremities SENSORIUM/ORIENTATION: Yes alert Skin: COMMON NORMALS: no rashes or lesions noted GENERAL SKIN EXAM: no rashes or lesions noted Urinary Catheter Management: Sherman: Cath Placed During This Visit: no Data 05/18/22 02:53 05/17/22 04:28 A&P Assessment and plan (1) Gram-negative bacteremia: Continue IV antibiotic coverage with ceftriaxone. (2) Severe depression: Today she appears to be doing better. She is in better spirits. Denies suicidal ideation. Improvement has been noticed by her son and family as well. This was noted by psychiatry. Discussed with psychiatry. Appreciate psychiatry documentation. Add Lexapro. Continue Remeron, Haldol, Ritalin. Continue follow-up and optimization here while in the hospital. Reviewed psychiatry documentation. Requested to minimize interruptions overnight to allow her for better rest. (3) Acute exacerbation of chronic obstructive airways disease: Gradually improving. She subjectively feels breathing is slightly easier. Continue prednisone 10 mg. Continue breathing treatments. She is empirically on antibiotics for E. coli bacteremia. (4) Metabolic encephalopathy: Appears to be improving. Previously with waxing waning mental status and orientation. Currently does appear to be more alert and responsive. Continue to monitor mental status. Reorient. Work with therapy. Continue to treat underlying conditions. (5) Enteroviral infection: Improving. (6) Retroperitoneal hematoma: Follow-up hemoglobin requested. Continue to withhold anticoagulation. Repeat CT reviewed. (7) Leukocytosis: Persisting leukocytosis, may be contributed by high-dose steroids. Improving. (8) Transaminitis: (9) AAA (abdominal aortic aneurysm): Follow-up outpatient (10) Paroxysmal A-fib: (11) Nicotine addiction: (12) Lesion of liver: Follow-up outpatient (13) Old cerebrovascular accident (CVA) without late effect: (14) Acute CHF: Improved. Transitioned to oral Lasix. Continue. Plan She has been having a wound on her left buttock as per discussion with her son has had it for a while which has been bothering her with pain recently even before the admission. Rhabdomyolysis: Improved. Consider statins at discharge. Acute blood loss anemia: Follow-up hemoglobin requested. History of lung nodule suspected for malignancy, status post radiation therapy. Discussed her condition and plans with her son who is in agreement. Attestations Medical Necessity Statement*: Continue admission for assessment and management of E. coli bacteremia, continued IV antibiotics, reassessment of hemoglobin retroperitoneal hematoma, as well as continued assessment of management of severe depression, post discharge planning. Requires continued monitoring due to severe depression, recent suicidal ideation, initiation of treatment, con tinued psychiatric follow-up. Coding Level of Care Code 93158 Moderate MDM includes number and complexity of problems actively addressed during encounter, amount and/or complexity of data reviewed/ordered [ previous or external records, resulted lab(s)/test(s), ordered lab(s)/test(s), independent historian and other healthcare professional discussion] and described risk of complication, morbidity or mortality of management as doc umented Diagnoses Gram-negative bacteremia R78.81 Severe depression F32.2 Acute exacerbation of chronic obstructive airways disease J44.1 Metabolic encephalopathy G93.41 Enteroviral infection B34.1 Retroperitoneal hematoma K66.1 Leukocytosis D72.829 Transaminitis R74.01 AAA (abdominal aortic aneurysm) I71.40 Paroxysmal A-fib I48.0 Nicotine addiction F17.200 Lesion of liver K76.9 Old cerebrovascular accident (CVA) without late effect Z86.73 Acute CHF I50.9
[2022-05-18] MEDS: budesonide 0.5 mg/2 mL Neb 0.25 MG INHALATION (19:49)
[2022-05-18] MEDS: mirtazapine 15 mg Tablet PO (21:14)
[2022-05-18] MEDS: temazepam 15 mg Capsule PO (21:14)
[2022-05-18] MEDS: cefTRIAXone 1,000 MG in sodium chloride 0.9% (plus) 50 ML 100 MG IV (21:16)
[2022-05-19] VITALS (12 sets, daily range): BP systolic 103–166; BP diastolic 53–66; PULSE 53–83; RESP 16–19; TEMP 36.6–37.3; O2SAT 90–97
[2022-05-19] MEDS: acetaminophen 325 mg Tablet 650 MG PO ×2 (00:57→17:39)
[2022-05-19] MEDS: ipratropium-albuterol 3 mL Neb INHALATION ×4 (01:51→21:37)
[2022-05-19 03:43] LABS: Hemoglobin 9.3 g/dL (11.5-15.3)
[2022-05-19] MEDS: HYDROcodone-acetaminophen 5-325 mg Tablet 1 TAB PO ×2 (04:39→19:56)
[2022-05-19] MEDS: methylphenidate 10 mg Tablet 5 MG PO ×2 (05:08→12:59)
[2022-05-19] MEDS: budesonide 0.5 mg/2 mL Neb 0.25 MG INHALATION ×2 (09:09→21:36)
[2022-05-19] MEDS: nystatin 100,000 unit/mL UDC 5 mL 100000 UNIT PO ×4 (09:26→19:59)
[2022-05-19] MEDS: polyethylene glycol 3350 Pkt 17 gm PO ×2 (09:26→17:40)
[2022-05-19] MEDS: lidocaine 5% Patch 1 PATCH TOPICAL (09:26)
[2022-05-19] MEDS: metoprolol tartrate 25 mg Tablet 12.5 MG PO ×2 (09:28→19:55)
[2022-05-19] MEDS: escitalopram 10 mg Tablet PO (09:29)
[2022-05-19] MEDS: haloperidol 1 mg Tablet 2 MG PO ×2 (09:29→17:41)
[2022-05-19] MEDS: dilTIAZem 60 mg Tablet 120 MG PO ×2 (09:29→17:40)
[2022-05-19] MEDS: FUROsemide 20 mg Tablet PO (09:30)
[2022-05-19] MEDS: predniSONE 10 mg Tablet PO (09:30)
[2022-05-19] MEDS: ferrous sulfate EC 325 mg Tablet PO ×2 (09:30→17:41)
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
--- NOTE | 2022-05-19 16:09 | PC.SOCIAL ---
IMM UPDATED IMM dated and initialed and copy given to patient
--- NOTE | 2022-05-19 17:12 | P.NPUPN_ITS ---
Subjective NPU Subjective: Patient 72-year-old white female currently at the [facility] who had expressed suicidal ideation associated with her continued multiple medical comorbidities. Patient was seen briefly on rounds and stated that she had been told by the doctors that she would be ready to go in 1 to 2 days. The patient was informed that the policy writer sales of this note had spoken with a physician on the team and that this was not necessarily the case that she would be returning home. Patient's son had also corroborated that she would not be returning home at this time but would require some rehabilitation. The [facility] Occupational Therapy evaluation that was completed had supported the need for the patient to be in a great of assistance in 8 out of 13 measured categories. Strongly had supported the idea of not meeting requirement for living independently. Patient was informed of some of this information but continued to reiterate that she was ready to go home as she had at times attempted to get up and move as if she were attempting to leave the facility. Mental Status Exam MSE Comments: This is a slender white female in a hospital gown with limited grooming but adequate eye contact. She was pleasant and conversant throughout much of the interview with normal rate rhythm and prosody in regards to her s peech. Her mood was described as okay . Her affect appeared flat. There was no clear evidence of delusional thinking. She did not appear to be responding to internal stimuli. She was alert and oriented to person place time and situation. Her recent and remote memory appeared intact. Her insight remained poor. Her judgment appeared guarded at this time. Her impulse control remained guarded as well. She minimized any thoughts of hurting herself or others. She was alert and oriented to person place and time. Vitals/I&O/Wt Last Vital Signs Temp 98.0 F 05/19/22 07:31 Pulse 69 05/19/22 14:00 Resp 17 05/19/22 13:38 BP 143/64 05/19/22 07:31 Pulse Ox 91 05/19/22 13:38 O2 Del Method 05/19/22 13:38 O2 Flow Rate 3 05/19/22 13:38 05/19/22 05/19/22 05/19/22 06:59 14:59 22:59 Intake Total 480 / 1370 480 / 480 Output Total 1050 / 1050 Balance -570 / 320 480 / 480 Physical Exam Urinary Catheter Management: Sherman: Cath Placed During This Visit: yes, but has since been removed by the nurse Reason for Continuing Indwelling Catheter: Accurate Measurement of Urinary Output in Critically Ill Patients Urinary Catheter Date of Insertion: 05/10/22 Urinary Catheter Time of Insertion: 17:13 Date Urinary Catheter Removed: 05/15/22 Time Urinary Catheter Discontinued: 15:00 Data NPU 05/19/22 03:32 05/17/22 04:28 A&P Assessment and plan (1) Nicotine addiction: (2) Suicidal ideation: (3) Severe depression: (4) Acute alteration in mental status: Plan This is a 72-year-old white female with recent history of last and medical decline who presents reporting depression and anxiety and thoughts of lethality. 1. Continue Lexapro 10 mg daily along with Remeron at 15 mg at night. Continue Haldol as it appears to be helpful for agitation. 2. This patient may require guardianship, not able to make reasonable medical decisions regarding her care despite being informed of risks and benefits of care. Family not able to manage her care at home. The patient's son and patient's aunt appear to be supportive of the idea of patient needing to live elsewhere (not returning to either of their homes) 3. We will continue to follow, supportive of assisted. Attestations NPU Medical Necessity Statement*: Patient likely not a candidate to geropsychiatric unit given her likelihood of needing some level of skilled nurs ing. Coding Level of Care Code Acute Code for [facility] Fwd Diagnoses Nicotine addiction F17.200 Suicidal ideation R45.851 Severe depression F32.2 Acute alteration in mental status R41.82
[2022-05-19] MEDS: mirtazapine 15 mg Tablet PO (19:55)
[2022-05-19] MEDS: temazepam 15 mg Capsule PO (19:55)
[2022-05-19] MEDS: cefTRIAXone 1,000 MG in sodium chloride 0.9% (plus) 50 ML 100 MG IV (21:32)
[2022-05-20] VITALS (8 sets, daily range): BP systolic 117–171; BP diastolic 56–78; PULSE 65–75; RESP 15–18; TEMP 36.6–37.2; O2SAT 92–100
[2022-05-20] MEDS: ALPRAZolam 0.5 mg Tablet 0.25 MG PO (01:16)
[2022-05-20] MEDS: HYDROcodone-acetaminophen 5-325 mg Tablet 1 TAB PO ×2 (01:16→20:26)
[2022-05-20 02:19] LABS: Hemoglobin 10.1 g/dL (11.5-15.3)
[2022-05-20] MEDS: methylphenidate 10 mg Tablet 5 MG PO ×2 (04:04→11:55)
[2022-05-20] MEDS: acetaminophen 325 mg Tablet 650 MG PO (04:04)
[2022-05-20] MEDS: predniSONE 10 mg Tablet PO (08:35)
[2022-05-20] MEDS: metoprolol tartrate 25 mg Tablet 12.5 MG PO ×2 (08:35→20:29)
[2022-05-20] MEDS: FUROsemide 20 mg Tablet PO (08:35)
[2022-05-20] MEDS: haloperidol 1 mg Tablet 2 MG PO ×2 (08:35→17:29)
[2022-05-20] MEDS: ferrous sulfate EC 325 mg Tablet PO ×2 (08:35→17:29)
[2022-05-20] MEDS: escitalopram 10 mg Tablet PO (08:35)
[2022-05-20] MEDS: nystatin 100,000 unit/mL UDC 5 mL 100000 UNIT PO ×3 (08:35→17:30)
[2022-05-20] MEDS: dilTIAZem 60 mg Tablet 120 MG PO ×2 (08:35→17:30)
[2022-05-20] MEDS: lidocaine 5% Patch 1 PATCH TOPICAL (08:36)
[2022-05-20] MEDS: polyethylene glycol 3350 Pkt 17 gm PO ×2 (08:36→17:28)
[2022-05-20] MEDS: budesonide 0.5 mg/2 mL Neb 0.25 MG INHALATION ×2 (09:01→20:10)
[2022-05-20] MEDS: ipratropium-albuterol 3 mL Neb INHALATION ×3 (09:02→20:10)
[2022-05-20] MEDS: collagenase oint 30 gm 1 APPLIC TOPICAL (11:57)
[2022-05-20 14:29] LABS: DNA AB (DS) CRITHIDIA,IFA NEGATIVE (NEGATIVE)
--- NOTE | 2022-05-20 14:44 | W.PM.NPUPNS ---
Subjective NPU Subjective: Patient 72-year-old white female currently at the [facility] who had expressed suicidal ideation associated with her continued multiple medical comorbidities. The patient had reported feeling better today. She continued to require a one-to-one sitter on the stabilization unit. She reported no side effects from her medication. She had minimized any thoughts of hurting herself. She had reported that she was willing to enter into a rehabilitation unit to get stronger although she had reported plans to return home to live with her son. It was reported once again to the patient that her son was unlikely to be able to take care of her without significant aid from nurses. She had reported that she would go wherever she needed to go if no one was able to take her home. Mental Status Exam MSE Comments: This is a slender white female in a hospital gown with limited grooming but adequate eye contact. She was pleasant and conversant throughout much of the interview with normal rate rhythm and prosody in regards to her speech. Her mood was described as good . Her affect appeared brighter today. There was no clear evidence of delusional thinking. She did not appear to be responding to internal stimuli. She was alert and oriented to person place time and situation. Her recent and remote memory appeared intact. Her insight remained poor. Her judgment appeared guarded at this time. Her impulse control remained guarded as well. She minimized any thoughts of hurting herself or others. She was alert and oriented to person place and time. Vitals/I&O/Wt Last Vital Signs Temp 98 F 05/20/22 03:18 Pulse 68 05/20/22 14:00 Resp 16 05/20/22 14:00 BP 171/78 05/20/22 03:18 Pulse Ox 100 05/20/22 14:00 O2 Del Method 05/20/22 14:00 O2 Flow Rate 3 05/20/22 14:00 05/19/22 05/20/22 05/20/22 22:59 06:59 14:59 Intake Total 530 / 1010 600 / 600 Balance 530 / 1010 600 / 600 Physical Exam Urinary Catheter Management: Sherman: Cath Placed During This Visit: yes, but has since been removed by the nurse Reason for Continuing Indwelling Catheter: Accurate Measurement of Urinary Output in Critically Ill Patients Urinary Catheter Date of Insertion: 05/10/22 Urinary Catheter Time of Insertion: 17:13 Date Urinary Catheter Removed: 05/15/22 Time Urinary Catheter Discontinued: 15:00 Data NPU 05/20/22 02:02 05/17/22 04:28 Micro: Microbiology 05/14/22 19:09 Blood Culture - Final Blood NO GROWTH AFTER 5 DAYS 05/14/22 19:09 Blood Culture - Final Blood NO GROWTH AFTER 5 DAYS Microbiology 05/14/22 19:09 Blood Blood Culture - Final NO GROWTH AFTER 5 DAYS 05/14/22 19:09 Blood Blood Culture - Final NO GROWTH AFTER 5 DAYS A&P Assessment and plan (1) Nicotine addiction: (2) Suicidal ideation: (3) Severe depression: (4) Acute alteration in mental status: Plan This is a 72-year-old white female with recent history of last and medical decline who presents reporting depression and anxiety and thoughts of lethality. 1. Continue Lexapro 10 mg daily along with Remeron at 15 mg at night. Continue Haldol as it appears to be helpful for agitation. 2. This patient may require guardianship, not able to make reasonable medical decisions regarding her care despite being informed of risks and benefits of care. Family not able to manage her care at home. The patient's son and patient's aunt appear to be supportive of the idea of patient needing to live elsewhere (not returning to either of their homes). 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 3. We will continue to follow, supportive of long term placement. Attestations NPU Medical Necessity Statement*: Not applicable regarding inpatient treatment. Coding Level of Care Code Acute Code for [facility] Fwd Diagnoses Nicotine addiction F17.200 Suicidal ideation R45.851 Severe depression F32.2 Acute alteration in mental status R41.82
[2022-05-20] MEDS: temazepam 15 mg Capsule PO (20:26)
[2022-05-20] MEDS: mirtazapine 15 mg Tablet PO (20:26)
[2022-05-20] MEDS: cefTRIAXone 1,000 MG in sodium chloride 0.9% (plus) 50 ML 100 MG IV (21:54)
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
[2022-05-21] VITALS (12 sets, daily range): BP systolic 109–172; BP diastolic 50–85; PULSE 48–86; RESP 16–23; TEMP 36.8–37.5; O2SAT 92–98
[2022-05-21 03:56] LABS: Hemoglobin 10.4 g/dL (11.5-15.3)
[2022-05-21] MEDS: ipratropium-albuterol 3 mL Neb INHALATION ×3 (08:28→19:35)
[2022-05-21] MEDS: budesonide 0.5 mg/2 mL Neb 0.25 MG INHALATION ×2 (08:28→19:35)
[2022-05-21] MEDS: nystatin 100,000 unit/mL UDC 5 mL 100000 UNIT PO ×4 (10:11→19:42)
[2022-05-21] MEDS: collagenase oint 30 gm 1 APPLIC TOPICAL (10:11)
[2022-05-21] MEDS: dilTIAZem 60 mg Tablet 120 MG PO ×2 (10:12→16:47)
[2022-05-21] MEDS: metoprolol tartrate 25 mg Tablet 12.5 MG PO ×2 (10:12→19:37)
[2022-05-21] MEDS: escitalopram 10 mg Tablet PO (10:13)
[2022-05-21] MEDS: haloperidol 1 mg Tablet 2 MG PO ×2 (10:13→16:48)
[2022-05-21] MEDS: ferrous sulfate EC 325 mg Tablet PO ×2 (10:13→16:47)
[2022-05-21] MEDS: predniSONE 10 mg Tablet PO (10:13)
[2022-05-21] MEDS: polyethylene glycol 3350 Pkt 17 gm PO (10:14)
[2022-05-21] MEDS: lidocaine 5% Patch 1 PATCH TOPICAL (10:46)
[2022-05-21] MEDS: HYDROcodone-acetaminophen 5-325 mg Tablet 1 TAB PO ×2 (10:47→19:37)
[2022-05-21] MEDS: FUROsemide 20 mg Tablet PO (10:47)
--- NOTE | 2022-05-21 14:45 | W.PM.NPUPNS ---
Subjective NPU Subjective: Patient 72-year-old white female currently at the [facility] who had expressed suicidal ideation associated with her continued multiple medical comorbidities. The patient had reported no side effects from her medications. She had reported that she was willing to enter into a rehabilitation center when a place became available. The patient appeared to have some continued waxing and waning of symptoms throughout the day with periods of confusion noted later at night and early in the morning. She reported no thoughts of hurting herself or others at this time. She continued to remain on one-on-one while on the unit and has been attempting to engage in more periods of time on her feet and out of bed. Mental Status Exam MSE Comments: This is a slender white female in a hospital gown with limited grooming but adequate eye contact. She was pleasant and conversant throughout much of the interview with normal rate rhythm and prosody in regards to her speech. Her mood was described as better . Her affect appeared brighter today. There was no clear evidence of delusional thinking. She did not appear to be responding to internal stimuli. She was alert and oriented to person place time and situation. Her recent and remote memory appeared intact. Her insight remained poor. Her judgment appeared guarded at this time. Her impulse control remained guarded as well. She minimized any thoughts of hurting herself or others. She was alert and oriented to person place and time. Vitals/I&O/Wt Last Vital Signs Temp 98.3 F 05/21/22 11:39 Pulse 55 L 05/21/22 13:35 Resp 16 05/21/22 13:30 BP 109/57 05/21/22 11:39 Pulse Ox 94 05/21/22 13:30 O2 Del Method 05/21/22 13:30 O2 Flow Rate 3 05/21/22 13:30 05/20/22 05/21/22 05/21/22 22:59 06:59 14:59 Intake Total 310 / 910 880 / 1790 960 / 960 Output Total 600 / 600 Balance 310 / 910 280 / 1190 960 / 960 Weight last 48 hrs Weight 64.637 kg Physical Exam Urinary Catheter Management: Sherman: Cath Placed During This Visit: yes, but has since been removed by the nurse Reason for Continuing Indwelling Catheter: Accurate Measurement of Urinary Output in Critically Ill Patients Urinary Catheter Date of Insertion: 05/10/22 Urinary Catheter Time of Insertion: 17:13 Date Urinary Catheter Removed: 05/15/22 Time Urinary Catheter Discontinued: 15:00 Data NPU 05/21/22 03:49 05/17/22 04:28 A&P Assessment and plan (1) Nicotine addiction: (2) Suicidal ideation: (3) Severe depression: (4) Acute alteration in mental status: Plan This is a 72-year-old white female with recent history of last and medical decline who presents reporting depression and anxiety and thoughts of lethality. 1. Continue Lexapro 10 mg daily along with Remeron at 15 mg at night. Continue Haldol as it appears to be helpful for agitation. 2. This patient may require guardianship, not able to make reasonable medical decisions regarding her care despite being informed of risks and benefits of care. Family not able to manage her care at home. Occupational therapy evaluation shows that patient remains an extremely poor candidate to return home independently given her inability to make good safe decisions (see detailed results of the evaluation) 3. We will continue to follow, supportive of [facility]. Attestations NPU Medical Necessity Statement*: Not applicable regarding inpatient treatment. Will continue to follow on consults. Coding Level of Care Code Acute Code for Chg Fwd Diagnoses Nicotine addiction F17.200 Suicidal ideation R45.851 Severe depression F32.2 Acute alteration in mental status R41.82
[2022-05-21] MEDS: temazepam 15 mg Capsule PO (19:37)
[2022-05-21] MEDS: mirtazapine 15 mg Tablet PO (19:38)
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
[2022-05-22] VITALS (14 sets, daily range): BP systolic 91–170; BP diastolic 40–82; PULSE 54–81; RESP 14–25; TEMP 36.7–37.1; O2SAT 91–97
[2022-05-22 03:26] LABS: Hemoglobin 9.9 g/dL (11.5-15.3)
[2022-05-22] MEDS: HYDROcodone-acetaminophen 5-325 mg Tablet 1 TAB PO ×2 (03:34→21:15)
[2022-05-22] MEDS: ALPRAZolam 0.5 mg Tablet 0.25 MG PO (03:59)
--- NOTE | 2022-05-22 04:56 | PC.NURSE ---
Patient is crying in pain from her legs. Hydrocodone and xanax have been administered as ordered and documented. Informed Dr Webb and received telephone order for Morphine 1mg IVP x1. RBVO
[2022-05-22] MEDS: morphine 4 mg/mL SDV 1 mL 1 MG IVP (04:59)
[2022-05-22] MEDS: budesonide 0.5 mg/2 mL Neb 0.25 MG INHALATION ×2 (08:35→20:58)
[2022-05-22] MEDS: ipratropium-albuterol 3 mL Neb INHALATION ×3 (08:35→20:58)
[2022-05-22] MEDS: metoprolol tartrate 25 mg Tablet 12.5 MG PO ×2 (08:51→21:11)
[2022-05-22] MEDS: escitalopram 10 mg Tablet PO (08:51)
[2022-05-22] MEDS: haloperidol 1 mg Tablet 2 MG PO (08:51)
[2022-05-22] MEDS: ferrous sulfate EC 325 mg Tablet PO ×2 (08:51→19:16)
[2022-05-22] MEDS: predniSONE 10 mg Tablet PO (08:51)
[2022-05-22] MEDS: FUROsemide 20 mg Tablet PO (08:51)
[2022-05-22] MEDS: dilTIAZem 60 mg Tablet 120 MG PO ×2 (08:51→19:16)
[2022-05-22] MEDS: lidocaine 5% Patch 1 PATCH TOPICAL (08:52)
[2022-05-22] MEDS: nystatin 100,000 unit/mL UDC 5 mL 100000 UNIT PO ×4 (08:52→21:11)
[2022-05-22] MEDS: collagenase oint 30 gm 1 APPLIC TOPICAL (08:55)
--- NOTE | 2022-05-22 13:02 | W.PM.NPUPNS ---
Subjective NPU Subjective: Patient 72-year-old white female currently at the [facility] who had expressed suicidal ideation associated with her continued multiple medical comorbidities. The patient was pleasant and appeared to recognize the journalists and other writers of this note. She reports that she is hopeful of going to a rehabilitation center soon. She had complained of some muscle aches but had been able to engage in occasional walks on the unit. She had reported no mood symptoms as she reported feeling pretty good . She had denied having thoughts of hurting herself and stated that she had visitors yesterday including her sister and her son. She had described having frequent boredom and stated that she did not feel like doing much of anything here at this time. Mental Status Exam MSE Comments: This is a slender white female in a hospital gown with limited grooming but adequate eye contact. She was pleasant and conversant throughout much of the interview with normal rate rhythm and prosody in regards to her speech. Her mood was described as pretty good . Her affect appeared brighter today. There was no clear evidence of delusional thinking. She did not appear to be responding to internal stimuli. She was alert and oriented to person place time and situation. Her recent and remote memory appeared intact. Her insight remained poor. Her judgment appeared guarded at this time. Her impulse control remained guarded as well. She minimized any thoughts of hurting herself or others. She was alert and oriented to person place and time. Vitals/I&O/Wt Last Vital Signs Temp 98.6 F 05/22/22 11:08 Pulse 54 L 05/22/22 11:08 Resp 16 05/22/22 11:08 BP 91/40 05/22/22 11:08 Pulse Ox 91 05/22/22 11:08 O2 Del Method 05/22/22 11:08 O2 Flow Rate 3 05/22/22 11:08 05/21/22 05/22/22 05/22/22 22:59 06:59 14:59 Intake Total 1200 / 2160 720 / 2880 236 / 236 Output Total 400 / 400 125 / 525 Balance 800 / 1760 595 / 2355 236 / 236 Weight last 48 hrs Weight 64.592 kg Weight 64.637 kg Physical Exam Urinary Catheter Management: Sherman: Cath Placed During This Visit: yes, but has since been removed by the nurse Reason for Continuing Indwelling Catheter: Accurate Measurement of Urinary Output in Critically Ill Patients Urinary Catheter Date of Insertion: 05/10/22 Urinary Catheter Time of Insertion: 17:13 Date Urinary Catheter Removed: 05/15/22 Time Urinary Catheter Discontinued: 15:00 Data NPU 05/22/22 02:35 05/17/22 04:28 A&P Assessment and plan (1) Nicotine addiction: (2) Suicidal ideation: (3) Severe depression: (4) Acute alteration in mental status: Plan This is a 72-year-old white female with recent history of last and medical decline who presents reporting depression and anxiety and thoughts of lethality. 1. Continue Lexapro 10 mg daily along with Remeron at 15 mg at night. Trial of Reduced Haldol to 1mg twice a day at this time, concern about some muscle stiffness, rigidity on higher doses. 2. This patient may require guardianship, not able to make reasonable medical decisions regarding her care despite being informed of risks and benefits of care. Family not able to manage her care at home. Occupational therapy evaluation shows that patient remains an extremely poor candidate to return home independently given her inability to make good safe decisions (see detailed results of the evaluation) 3. We will continue to follow, supportive of intermediate placement. Attestations NPU Medical Necessity Statement*: Not applicable regarding inpatient psychiatric treatment for patient at this time. Will continue to follow on consults. Coding Level of Care Code Acute Code for Chg Fwd Diagnoses Nicotine addiction F17.200 Suicidal ideation R45.851 Severe depression F32.2 Acute alteration in mental status R41.82
[2022-05-22] MEDS: haloperidol 1 mg Tablet PO (19:17)
[2022-05-22] MEDS: mirtazapine 15 mg Tablet PO (21:10)
[2022-05-22] MEDS: temazepam 15 mg Capsule PO (21:11)
--- NOTE | 2022-05-22 23:18 | PM.PN ---
Subjective Subjective: She says she is doing okay. She denies any pain. Has trouble recalling about hematoma/hemorrhage but does say when asked why hemoglobin is followed it is for the spot , pointing to the left hip. Vitals/I&O/Wt Last Vital Signs Temp 98.8 F 05/22/22 20:00 Pulse 64 05/22/22 21:00 Resp 14 05/22/22 21:00 BP 149/69 05/22/22 20:00 Pulse Ox 93 05/22/22 21:00 O2 Del Method 05/22/22 21:00 O2 Flow Rate 3 05/22/22 21:00 05/22/22 05/22/22 05/23/22 14:59 22:59 06:59 Intake Total 472 / 472 700 / 1172 Balance 472 / 472 700 / 1172 Weight last 48 hrs Weight 64.592 kg Weight 64.637 kg Physical Exam Narrative: Sitting up in chair. Dressed and neat appearing. Const: COMMON NORMALS: patient oriented x3 and alert GENERAL APPEARANCE: cooperative and frail appearing ORIENTATION/CONSCIOUSNESS: Yes awake OTHER: Her mood has been improving. She denies suicidal ideation. HENMT: COMMON NORMALS: oropharynx normal Neck/C-Spine: COMMON NORMALS: no JVD Resp: COMMON NORMALS: normal respiratory effort and clear to auscultation bilaterally AUSCULTATION: clear to auscultation bilaterally Cardio: COMMON NORMALS: no JVD, regular rhythm, S1 normal heart sound present, S2 normal heart sound present and No murmurs present (Cardio) RHYTHM: regular rhythm HEART SOUNDS: S1 normal heart sound present and S2 normal heart sound present GI: COMMON NORMALS: Normal to inspection, nondistended, normoactive bowel sounds present, Soft to palpation and non-tender PALPATION: Yes Soft to palpation Extremity: COMMON NORMALS: no joint enlargement and no pedal edema Neuro: COMMON NORMALS: patient oriented x3 and moves all extremities SENSORIUM/ORIENTATION: Yes alert Skin: COMMON NORMALS: no rashes or lesions noted GENERAL SKIN EXAM: no rashes or lesions noted OTHER: Examination of her chronic sacral/left buttock wound shows shallow ulceration with mild to moderate slough, without tunneling or undermining. Urinary Catheter Management: Sherman: Cath Placed During This Visit: yes, but has since been removed by the nurse Reason for Continuing Indwelling Catheter: Accurate Measurement of Urinary Output in Critically Ill Patients Urinary Catheter Date of Insertion: 05/10/22 Urinary Catheter Time of Insertion: 17:13 Date Urinary Catheter Removed: 05/15/22 Time Urinary Catheter Discontinued: 15:00 Data 05/22/22 02:35 05/17/22 04:28 A&P Assessment and plan (1) Acute blood loss anemia: Discussed with her hemoglobin down to 9.9 today. She does not have any further pain. Discussed we will request recheck again in the morning. (2) Unable to function independently: Her depression has been showing improvement. On reassessment today denies suicidal ideation. She has been saying she is looking forward to working with therapy. Pending level 2 approval for her to be able to resume rehabilitation at [facility]. Unfortunately poor safety awareness and insight, not retaining information with regards to her condition and treatment of her illness. Reviewed Occupational Therapy assessment together with psychiatry, with finding of 8/13 score on ISSAC, including concerning findings on awareness of dangerous household situations, needing assistance, scoring 3/4 correct, 75% accuracy. Identification of appropriate action for sickness, accidents and emergencies, needing assistance, 25% accuracy, stating for balloon diet became infected she would go to ER or use aloe vera. For a cold she would take her prescription BP medicine. Number she will call if her house caught fire; I would have to look that up in my personal book. Does not state 911. Does not meet minimal criteria for independence on these and a number of other assessment points. Please see full results for details. Case management working with family on placement to [facility], guardianship. (3) Gram-negative bacteremia: Completed recommendation course. Stop ceftriaxone. Vitals reviewed, remains afebrile. Without tachycardia or other SIRS criteria. (4) Severe depression: Depression has been showing improved. Psychiatry note reviewed. Depression overall is improving. So far no additional suicidal ideation. Continue Lexapro. Continue Remeron, Haldol, Ritalin. Continue to monitor symptoms, at risk of worsening depression/recurrence of suicidal ideation with initiation of treatment. Continue follow-up and optimization here while in the hospital. Reviewed psychiatry documentation. Requested to minimize interruptions overnight to allow her for better rest. This seems to be working well with her she is getting better rest at night. (5) Acute exacerbation of chronic obstructive airways disease: Gradually improving. She subjectively feels breathing is slightly easier. Continue prednisone 10 mg. Continue breathing treatments. She is empirically on antibiotics for E. coli bacteremia. (6) Metabolic encephalopathy: Despite otherwise significantly improved condition, improved energy levels, with current therapy, still continues to have poor safety awareness, although is oriented, recognizes her family. Does appear to try to cover for any deficiencies with generalized statements, however, I suspect may have been having some early dementia developing for some time. On outpatient basis would benefit from follow-up with neurology for additional battery of testing. She otherwise is nearing the end of her antibiotic course, no signs of sepsis, with overall improvement in depression, by this time should be with resolution of viral infection, without other obvious factors that should be causing ongoing encephalopathy. Still inability to function independently and reportedly safely in a number of areas as per ISSAC assessment, also has been exhibiting some sundowning pattern. (7) Enteroviral infection: Resolved. (8) Retroperitoneal hematoma: Follow-up hemoglobin requested. Continue to withhold anticoagulation. Repeat CT reviewed. (9) Leukocytosis: Persisting leukocytosis, may be contributed by high-dose steroids. Improving. (10) Transaminitis: (11) AAA (abdominal aortic aneurysm): Follow-up outpatient (12) Paroxysmal A-fib: (13) Nicotine addiction: (14) Lesion of liver: Follow-up outpatient (15) Old cerebrovascular accident (CVA) without late effect: (16) Acute CHF: Improved. Transitioned to oral Lasix. Continue. 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 Moderate amount of slough. Requested to change dressings with collagenase ointment. Foam dressing. Continue frequent repositioning. Continue protein supplementation with regular diet. Rhabdomyolysis: Improved. Consider statins at discharge. History of lung nodule suspected for malignancy, status post radiation therapy. Discussed her condition and plans with her son who is in agreement. Attestations Medical Necessity Statement*: Continue admission for reassessment of acute anemia with retroperitoneal hematoma, continued optimization of treatment of depression previously with suicidal ideation, requiring monitoring with risk of return of suicidal ideation with initiation of treatment, pending level 2 approval for rehabilitation, initiation of process for guardianship and discharge planning. Diagnoses Acute blood loss anemia D62 Unable to function independently Z78.9 Gram-negative bacteremia R78.81 Severe depression F32.2 Acute exacerbation of chronic obstructive airways disease J44.1 Metabolic encephalopathy G93.41 Enteroviral infection B34.1 Retroperitoneal hematoma K66.1 Leukocytosis D72.829 Transaminitis R74.01 AAA (abdominal aortic aneurysm) I71.40 Paroxysmal A-fib I48.0 Nicotine addiction F17.200 Lesion of liver K76.9 Old cerebrovascular accident (CVA) without late effect Z86.73 Acute CHF I50.9
[2022-05-23] VITALS (13 sets, daily range): BP systolic 123–165; BP diastolic 50–86; PULSE 58–80; RESP 9–22; TEMP 36.6–37.2; O2SAT 89–99
[2022-05-23] MEDS: acetaminophen 325 mg Tablet 650 MG PO (01:15)
[2022-05-23 02:55] LABS: Hemoglobin 9.3 g/dL (11.5-15.3)
[2022-05-23] MEDS: budesonide 0.5 mg/2 mL Neb 0.25 MG INHALATION ×2 (07:38→19:41)
[2022-05-23] MEDS: ipratropium-albuterol 3 mL Neb INHALATION ×3 (07:39→19:41)
[2022-05-23] MEDS: ferrous sulfate EC 325 mg Tablet PO ×2 (09:02→18:28)
[2022-05-23] MEDS: nystatin 100,000 unit/mL UDC 5 mL 100000 UNIT PO ×2 (09:02→21:22)
[2022-05-23] MEDS: haloperidol 1 mg Tablet PO ×2 (09:03→18:28)
[2022-05-23] MEDS: dilTIAZem 60 mg Tablet 120 MG PO ×2 (09:03→18:28)
[2022-05-23] MEDS: escitalopram 10 mg Tablet PO (09:03)
[2022-05-23] MEDS: FUROsemide 20 mg Tablet PO (09:03)
[2022-05-23] MEDS: collagenase oint 30 gm 1 APPLIC TOPICAL (09:06)
[2022-05-23] MEDS: metoprolol tartrate 25 mg Tablet 12.5 MG PO ×2 (09:10→21:21)
[2022-05-23] MEDS: lidocaine 5% Patch 1 PATCH TOPICAL (09:11)
[2022-05-23] MEDS: predniSONE 10 mg Tablet 5 MG PO (09:17)
[2022-05-23] MEDS: pantoprazole DR 40 mg Tablet PO (09:17)
--- NOTE | 2022-05-23 10:31 | PC.NURSE ---
pt refused to put her telemetry leads back on her chest, refused to go back in bed. she stated she can't move around with her tele wires on and difficult for her to get out in hospital bed by herself. 1:1 sitter in room. pt is pleasant and oriented x4.
--- NOTE | 2022-05-23 11:39 | PC.SOCIAL ---
IMM Update Called and updated IMM with patients epifanio Peraza (DPOA). Copy left @ bedside and copy in chart dated and initialed.
--- NOTE | 2022-05-23 14:00 | P.NPUPN_ITS ---
Subjective NPU Subjective: Patient 72-year-old white female currently at the [facility] who had expressed suicidal ideation associated with her continued multiple medical comorbidities. The patient had no changes reported in behavior per staff with the reduction in Haldol to 2 mg/day. She denied any thoughts of hurting herself and reported that her mood was okay. She had reported again having some struggles with falling asleep. There were no other substantial changes reported in regards to her cognition. Mental Status Exam MSE Comments: This is a slender white female in a hospital gown with limited grooming but adequate eye contact. She was pleasant and conversant throughout much of the interview with normal rate rhythm and prosody in regards to her speech. Her mood was described as pretty good . Her affect appeared brighter today. There was no clear evidence of delusional thinking. She did not appear to be responding to internal stimuli. She was alert and oriented to person place time and situation. Her recent and remote memory appeared intact. Her insight remained poor. Her judgment appeared guarded at this time. Her impulse control remained guarded as well. She minimized any thoughts of hurting herself or others. She was alert and oriented to person place and time. Vitals/I&O/Wt Last Vital Signs Temp 98.7 F 05/23/22 12:00 Pulse 68 05/23/22 12:00 Resp 15 05/23/22 12:00 BP 123/50 05/23/22 12:00 Pulse Ox 89 L 05/23/22 12:00 O2 Del Method 05/23/22 12:00 O2 Flow Rate 3 05/23/22 12:00 05/22/22 05/23/22 05/23/22 22:59 06:59 14:59 Intake Total 820 / 1292 880 / 2172 Output Total 800 / 800 Balance 820 / 1292 80 / 1372 Weight last 48 hrs Weight 64.592 kg Physical Exam Urinary Catheter Management: Sherman: Cath Placed During This Visit: yes, but has since been removed by the nurse Reason for Continuing Indwelling Catheter: Accurate Measurement of Urinary Output in Critically Ill Patients Urinary Catheter Date of Insertion: 05/10/22 Urinary Catheter Time of Insertion: 17:13 Date Urinary Catheter Removed: 05/15/22 Time Urinary Catheter Discontinued: 15:00 Data NPU 05/23/22 02:05 05/17/22 04:28 A&P Assessment and plan (1) Nicotine addiction: (2) Suicidal ideation: (3) Severe depression: (4) Acute alteration in mental status: Plan This is a 72-year-old white female with recent history of last and medical decline who presents reporting depression and anxiety and thoughts of lethality. 1. Continue Lexapro 10 mg daily along with Remeron at 15 mg at night. Continue Haldol to 1mg twice a day at this time, concern about some muscle stiffness, rigidity on higher doses. 2. This patient may require guardianship, not able to make reasonable medical decisions regarding her care despite being informed of risks and benefits of ca re. Family not able to manage her care at home. Occupational therapy evaluation shows that patient remains an extremely poor candidate to return home independently given her inability to make good safe decisions (see detailed results of the evaluation) See Results of Tiffanie for further details. - Shows evidence of inability to live independently particularly safety issues and understanding danger. 3. We will continue to follow, supportive of longterm placement. Attestations NPU Medical Necessity Statement*: Not applicable regarding inpatient psychiatric treatment for patient at this time. Will continue to follow on consults. Coding Level of Care Code Acute Code for Chg Fwd Diagnoses Nicotine addiction F17.200 Suicidal ideation R45.851 Severe depression F32.2 Acute alteration in mental status R41.82
[2022-05-23 16:19] LABS: Hemoglobin 9.4 g/dL (11.5-15.3)
--- NOTE | 2022-05-23 18:24 | PC.NURSE ---
pt remove her oxygen applied back on.
[2022-05-23] MEDS: mirtazapine 15 mg Tablet PO (21:21)
[2022-05-23] MEDS: temazepam 15 mg Capsule PO (21:21)
[2022-05-23] MEDS: HYDROcodone-acetaminophen 5-325 mg Tablet 1 TAB PO (21:39)
--- NOTE | 2022-05-23 22:52 | PM.PN ---
Subjective Subjective: This morning she was having pain at the left side pelvis at the site of previously noted fracture. This did not respond to oral medication. Required a dose of IV Dilaudid. Later on in the afternoon reported pleasantly confused by her RN. One-to-one sitter renewed. Vitals/I&O/Wt Last Vital Signs Temp 99.0 F 05/23/22 20:00 Pulse 72 05/23/22 20:00 Resp 16 05/23/22 20:00 BP 165/63 05/23/22 20:00 Pulse Ox 99 05/23/22 20:00 O2 Del Method 05/23/22 20:00 O2 Flow Rate 2 05/23/22 20:00 05/23/22 05/23/22 05/23/22 06:59 14:59 22:59 Intake Total 880 / 2172 466 / 466 100 / 566 Output Total 800 / 800 350 / 350 Balance 80 / 1372 116 / 116 100 / 216 Weight last 48 hrs Weight 64.592 kg Physical Exam Narrative: Sitting up in chair. Dressed and neat appearing. Const: COMMON NORMALS: patient oriented x3 and alert GENERAL APPEARANCE: cooperative and frail appearing ORIENTATION/CONSCIOUSNESS: Yes awake OTHER: Her mood has been improving. She denies suicidal ideation. HENMT: COMMON NORMALS: oropharynx normal Neck/C-Spine: COMMON NORMALS: no JVD Resp: COMMON NORMALS: normal respiratory effort and clear to auscultation bilaterally AUSCULTATION: clear to auscultation bilaterally Cardio: COMMON NORMALS: no JVD, regular rhythm, S1 normal heart sound present, S2 normal heart sound present and No murmurs present (Cardio) RHYTHM: regular rhythm HEART SOUNDS: S1 normal heart sound present and S2 normal heart sound present GI: COMMON NORMALS: Normal to inspection, nondistended, normoactive bowel sounds present, Soft to palpation and non-tender PALPATION: Yes Soft to palpation Extremity: COMMON NORMALS: no joint enlargement and no pedal edema Neuro: COMMON NORMALS: patient oriented x3 and moves all extremities SENSORIUM/ORIENTATION: Yes alert Skin: COMMON NORMALS: no rashes or lesions noted GENERAL SKIN EXAM: no rashes or lesions noted OTHER: Examination of her chronic sacral/left buttock wound shows shallow ulceration with mild to moderate slough, without tunneling or undermining. Urinary Catheter Management: Sherman: Cath Placed During This Visit: yes, but has since been removed by the nurse Reason for Continuing Indwelling Catheter: Accurate Measurement of Urinary Output in Critically Ill Patients Urinary Catheter Date of Insertion: 05/10/22 Urinary Catheter Time of Insertion: 17:13 Date Urinary Catheter Removed: 05/15/22 Time Urinary Catheter Discontinued: 15:00 Data 05/23/22 15:55 05/17/22 04:28 A&P Assessment and plan (1) Acute blood loss anemia: Hemoglobin with further decrease down to 9.3. Having some pain in left side pelvis but this appears to be at the site of her prior left anterior inferior iliac spine. Still with pain, decreasing hemoglobin this morning, recheck another hemoglobin this afternoon, results reviewed, 9.4. Recheck additional hemoglobin in the morning. (2) Unable to function independently: Her depression has been showing improvement. On reassessment today denies suicidal ideation. She has been saying she is looking forward to working with therapy. Pending level 2 approval for her to be able to resume rehabilitation at [facility]. Unfortunately poor safety awareness and insight, not retaining information with regards to her condition and treatment of her illness. Reviewed Occupational Therapy assessment together with psychiatry, with finding of 8/13 score on ISSAC, including concerning findings on awareness of dangerous household situations, needing assistance, scoring 3/4 correct, 75% accuracy. Identification of appropriate action for sickness, accidents and emergencies, needing assistance, 25% accuracy, stating for balloon diet became infected she would go to ER or use aloe vera. For a cold she would take her prescription BP medicine. Number she will call if her house caught fire; I would have to look that up in my personal book. Does not state 911. Does not meet minimal criteria for independence on these and a number of other assessment points. Please see full results for details. Case management working with family on placement to [facility] facility, guardianship. (3) Gram-negative bacteremia: Completed recommendation course. Stop ceftriaxone. Vitals reviewed, remains afebrile. Without tachycardia or other SIRS criteria. (4) Severe depression: Depression has been showing improved. Psychiatry note reviewed. Depression overall is improving. So far no additional suicidal ideation. Continue Lexapro. Continue Remeron, Haldol, Ritalin. Continue to monitor symptoms, at risk of worsening depression/recurrence of suicidal ideation with initiation of treatment. Continue follow-up and optimization here while in the hospital. Reviewed psychiatry documentation. Requested to minimize interruptions overnight to allow her for better rest. This seems to be working well with her she is getting better rest at night. (5) Acute exacerbation of chronic obstructive airways disease: Gradually improving. She subjectively feels breathing is slightly easier. Continue prednisone 10 mg. Continue breathing treatments. She is empirically on antibiotics for E. coli bacteremia. (6) Metabolic encephalopathy: Despite otherwise significantly improved condition, improved energy levels, with current therapy, still continues to have poor safety awareness, although is oriented, recognizes her family. Does appear to try to cover for any deficiencies with generalized statements, however, I suspect may have been having some early dementia developing for some time. On outpatient basis would benefit from follow-up with neurology for additional battery of testing. She otherwise is nearing the end of her antibiotic course, no signs of sepsis, with overall improvement in depression, by this time should be with resolution of viral infection, without other obvious factors that should be causing ongoing encephalopathy. Still inability to function independently and reportedly safely in a number of areas as per ISSAC assessment, also has been exhibiting some sundowning pattern. (7) Enteroviral infection: Resolved. (8) Retroperitoneal hematoma: Follow-up hemoglobin requested. Continue to withhold anticoagulation. Repeat CT reviewed. (9) Leukocytosis: Persisting leukocytosis, may be contributed by high-dose steroids. Improving. (10) Transaminitis: (11) AAA (abdominal aortic aneurysm): Follow-up outpatient (12) Paroxysmal A-fib: (13) Nicotine addiction: (14) Lesion of liver: Follow-up outpatient (15) Old cerebrovascular accident (CVA) without late effect: (16) Acute CHF: Improved. Transitioned to oral Lasix. Continue. 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 Moderate amount of slough. Requested to change dressings with collagenase ointment. Foam dressing. Continue frequent repositioning. Continue protein supplementation with regular diet. Left anterior inferior iliac spine fracture: Found on CT he during ER visit prior to this admission. Severe pain bothering her today did not respond to oral opioid, required 1 dose of IV Dilaudid. Rhabdomyolysis: Improved. Consider statins at discharge. History of lung nodule suspected for malignancy, status post radiation therapy. Discussed her condition and plans with her son who is in agreement. [facility] Continue admission for reassessment of acute anemia with retroperitoneal hematoma, continued optimization of treatment of depression previously with suicidal ideation, requiring monitoring with risk of return of suicidal ideation with initiation of treatment, pending level 2 approval for rehabilitation, initiation of process for guardianship and discharge planning. Diagnoses Acute blood loss anemia D62 Unable to function independently Z78.9 Gram-negative bacteremia R78.81 Severe depression F32.2 Acute exacerbation of chronic obstructive airways disease J44.1 Metabolic encephalopathy G93.41 Enteroviral infection B34.1 Retroperitoneal hematoma K66.1 Leukocytosis D72.829 Transaminitis R74.01 AAA (abdominal aortic aneurysm) I71.40 Paroxysmal A-fib I48.0 Nicotine addiction F17.200 Lesion of liver K76.9 Old cerebrovascular accident (CVA) without late effect Z86.73 Acute CHF I50.9
[2022-05-24] VITALS (10 sets, daily range): BP systolic 108–149; BP diastolic 45–74; PULSE 56–75; RESP 14–18; TEMP 36.2–37.3; O2SAT 91–94
[2022-05-24] MEDS: acetaminophen 325 mg Tablet 650 MG PO (02:53)
[2022-05-24] MEDS: nystatin 100,000 unit/mL UDC 5 mL 100000 UNIT PO ×4 (08:05→20:35)
[2022-05-24] MEDS: ferrous sulfate EC 325 mg Tablet PO ×2 (08:05→17:04)
[2022-05-24] MEDS: metoprolol tartrate 25 mg Tablet 12.5 MG PO ×2 (08:06→20:33)
[2022-05-24] MEDS: FUROsemide 20 mg Tablet PO (08:06)
[2022-05-24] MEDS: predniSONE 10 mg Tablet 5 MG PO (08:06)
[2022-05-24] MEDS: escitalopram 10 mg Tablet PO (08:06)
[2022-05-24] MEDS: collagenase oint 30 gm 1 APPLIC TOPICAL (08:07)
[2022-05-24] MEDS: haloperidol 1 mg Tablet PO ×2 (08:07→17:04)
[2022-05-24] MEDS: polyethylene glycol 3350 Pkt 17 gm PO (08:07)
[2022-05-24] MEDS: dilTIAZem 60 mg Tablet 120 MG PO ×2 (08:07→17:04)
[2022-05-24] MEDS: lidocaine 5% Patch 1 PATCH TOPICAL (08:07)
[2022-05-24] MEDS: pantoprazole DR 40 mg Tablet PO (08:07)
[2022-05-24] MEDS: budesonide 0.5 mg/2 mL Neb 0.25 MG INHALATION ×2 (09:33→20:23)
[2022-05-24] MEDS: ipratropium 0.5 mg/2.5 mL Neb INHALATION ×3 (09:33→20:28)
[2022-05-24] MEDS: albuterol 2.5 mg/3 mL Neb INHALATION ×3 (09:33→20:22)
--- NOTE | 2022-05-24 11:36 | PM.PN ---
Subjective Subjective: No acute overnight events. Patient denies any new complaints. States that her breathing is unlabored. Currently saturating 94% on 3 L/min supplemental O2. Afebrile and hemodynamically stable Medications: Reviewed: Yes Vitals/I&O/Wt Last Vital Signs Temp 98.0 F 05/24/22 08:00 Pulse 75 05/24/22 09:44 Resp 16 05/24/22 09:44 BP 108/45 05/24/22 08:00 Pulse Ox 94 05/24/22 09:44 O2 Del Method 05/24/22 09:44 O2 Flow Rate 3 05/24/22 09:44 05/23/22 05/24/22 05/24/22 22:59 06:59 14:59 Intake Total 340 / 806 120 / 926 480 / 480 Balance 340 / 456 120 / 576 480 / 480 Physical Exam Narrative: General: Elderly sitting comfortably in a chair at bedside, no complaints. Appears comfortable. HEENT: PERRLA, pupils bilaterally equal and reactive, pallors not present Chest: Scattered wheezing to auscultation bilaterally CVS: S1-S2 regular, no murmurs, no tachycardia, no gallops, no rubs Abdomen: Soft, nontender, no organomegaly, bowel sounds present Neuro: No focal deficits, no facial deformity, AO x3, power 5/5 in all limbs Extremities: Pitting edema bilateral lower extremities. Urinary Catheter Management: Sherman: Cath Placed During This Visit: yes, but has since been removed by the nurse Reason for Continuing Indwelling Catheter: Accurate Measurement of Urinary Output in Critically Ill Patients Urinary Catheter Date of Insertion: 05/10/22 Urinary Catheter Time of Insertion: 17:13 Date Urinary Catheter Removed: 05/15/22 Time Urinary Catheter Discontinued: 15:00 Data 05/23/22 15:55 05/17/22 04:28 A&P Assessment and plan (1) Gram-negative bacteremia: 72-year-old lady with multiple comorbidities admitted to the hospital since May 10, 2022 after presenting with altered mental status, generalized weakness, tested positive for rhino enterovirus. Incidentally discovered to have E. coli bacteremia as part of the work-up. Blood culture 1 of 3 positive on May 10 for E. coli, susceptible to ceftriaxone. CT of the abdomen and pelvis without any focal abscess or collections. No evidence of colitis. UA negative upon admission. Incidentally noted retroperitoneal hematoma, suspect that this is likely secondary to her multiple falls at home, most recently it appears patient was in the ER on May 05 when she was diagnosed with anterior inferior iliac spine. Possible that E. coli bacteremia upon admission may have been a result of GI translocation given her rhino enterovirus positivity and being on steroids. Patient did receive higher doses of steroids while in the hospital for COPD exacerbation. Unlikely that her hematomas are related to her bacteremia, likely this is an incidental finding related to bleeding. Strain is susceptible to ceftriaxone, patient is currently on treatment with the same. Now status post 10 days of total therapy (05/11-05/20). (2) Metabolic encephalopathy: This is essentially resolved. Patient has intermittent episodes of confusion, however at the time of my assessment today she is alert awake oriented x3. (3) Enteroviral infection: Rhino/ entero positive upon admission, appears to be clinically improving in this regard. She is afebrile. (4) Retroperitoneal hematoma: Suspect this is related to recurrent falls while being on Eliquis.. Low suspicion for secondary embolization. Anticoagulation has been discontinued (5) Leukocytosis: resolved (6) Severe depression: Management per primary team and psychiatry. (7) Acute blood loss anemia: Hemoglobin now stable at 9.3. likely due to retroperitoneal bleeding, now stable (8) Unable to function independently: Her depression has been showing improvement. On reassessment today denies suicidal ideation. She has been saying she is looking forward to working with therapy. Pending level 2 approval for her to be able to resume rehabilitation at SNF. Unfortunately poor safety awareness and insight, not retaining information with regards to her condition and treatment of her illness. Reviewed Occupational Therapy assessment together with psychiatry, with finding of 8/13 score on ISSAC, including concerning findings on awareness of dangerous household situations, needing assistance, scoring 3/4 correct, 75% accuracy. Identification of appropriate action for sickness, accidents and emergencies, needing assistance, 25% accuracy, stating for balloon diet became infected she would go to ER or use aloe vera. For a cold she would take her prescription BP medicine. Number she will call if her house caught fire; I would have to look that up in my personal book. Does not state 911. Does not meet minimal criteria for independence on these and a number of other assessment points. Please see full results for details. Awaiting placement at level 2 facility (9) Acute exacerbation of chronic obstructive airways disease: Gradually improving. She subjectively feels breathing is slightly easier. Continue prednisone 5 mg. Continue breathing treatments. She is empirically on antibiotics for E. coli bacteremia. Patient noted to have bilateral lower extremity edema. Echocardiogram on May 10 suggestive of grade 1 diastolic dysfunction. continue Lasix 20 mg p.o. daily. (10) Transaminitis: (11) AAA (abdominal aortic aneurysm): Follow-up outpatient (12) Paroxysmal A-fib: (13) Nicotine addiction: (14) Lesion of liver: Follow-up outpatient (15) Old cerebrovascular accident (CVA) without late effect: (16) Acute CHF: Improved. Transitioned to oral Lasix. Continue. 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 Moderate amount of slough. Requested to change dressings with collagenase ointment. Foam dressing. Continue frequent repositioning. Continue protein supplementation with regular diet. Left anterior inferior iliac spine fracture: Found on CT he during ER visit prior to this admission. Severe pain bothering her today did not respond to oral opioid, required 1 dose of IV Dilaudid. Rhabdomyolysis: Improved. History of lung nodule suspected for malignancy, status post radiation therapy. Discussed her condition and plans with her son who is in agreement. Attestations Medical Necessity Statement*: Awaiting appropriate disposition planning, not safe for discharge to home, level 2 authorization pending Coding Level of Care Code Acute Code for Chg Fwd Straight Forward/Low MDM includes number and complexity of problems actively addressed during encounter, amount and/or complexity of data reviewed/ordered and described risk of complication, morbidity or mortality of management as documented Diagnoses Gram-negative bacteremia R78.81 Metabolic encephalopathy G93.41 Enteroviral infection B34.1 Retroperitoneal hematoma K66.1 Leukocytosis D72.829 Severe depression F32.2 Acute blood loss anemia D62 Unable to function independently Z78.9 Acute exacerbation of chronic obstructive airways disease J44.1 Transaminitis R74.01 AAA (abdominal aortic aneurysm) I71.40 Paroxysmal A-fib I48.0 Nicotine addiction F17.200 Lesion of liver K76.9 Old cerebrovascular accident (CVA) without late effect Z86.73 Acute CHF I50.9
[2022-05-24] MEDS: HYDROcodone-acetaminophen 5-325 mg Tablet 1 TAB PO (20:33)
[2022-05-24] MEDS: mirtazapine 15 mg Tablet PO (20:34)
[2022-05-24] MEDS: temazepam 15 mg Capsule PO (20:34)
[2022-05-25] VITALS (9 sets, daily range): BP systolic 127–175; BP diastolic 53–77; PULSE 52–84; RESP 16–20; TEMP 36.6–36.9; O2SAT 90–96
--- NOTE | 2022-05-25 01:54 | PC.NURSE ---
See paper charting for 1:1 documentation
[2022-05-25] MEDS: HYDROcodone-acetaminophen 5-325 mg Tablet 1 TAB PO ×2 (02:05→20:49)
[2022-05-25] MEDS: nystatin 100,000 unit/mL UDC 5 mL 100000 UNIT PO ×4 (08:26→20:50)
[2022-05-25] MEDS: FUROsemide 20 mg Tablet PO (08:27)
[2022-05-25] MEDS: ferrous sulfate EC 325 mg Tablet PO ×2 (08:27→17:27)
[2022-05-25] MEDS: predniSONE 10 mg Tablet 5 MG PO (08:27)
[2022-05-25] MEDS: haloperidol 1 mg Tablet PO ×2 (08:27→17:27)
[2022-05-25] MEDS: metoprolol tartrate 25 mg Tablet 12.5 MG PO ×2 (08:27→20:50)
[2022-05-25] MEDS: dilTIAZem 60 mg Tablet 120 MG PO ×2 (08:27→17:27)
[2022-05-25] MEDS: escitalopram 10 mg Tablet PO (08:27)
[2022-05-25] MEDS: lidocaine 5% Patch 1 PATCH TOPICAL (08:28)
[2022-05-25] MEDS: collagenase oint 30 gm 1 APPLIC TOPICAL (08:28)
[2022-05-25] MEDS: pantoprazole DR 40 mg Tablet PO (08:28)
[2022-05-25] MEDS: albuterol 2.5 mg/3 mL Neb INHALATION ×2 (09:00→13:27)
[2022-05-25] MEDS: budesonide 0.5 mg/2 mL Neb 0.25 MG INHALATION (09:01)
--- NOTE | 2022-05-25 11:25 | PC.SOCIAL ---
IMM Updated Updated pt & family on IMM. No questions voiced. Provided pt a copy. Initialed, dated, & timed copy in chart.
[2022-05-25] MEDS: ipratropium 0.5 mg/2.5 mL Neb INHALATION (13:27)
--- NOTE | 2022-05-25 16:53 | P.PN_ITS ---
Subjective Subjective: Patient is noted to have increased lower extremity edema today. Denies any change in her breathing status. Comfortably sitting in a chair at bedside. No other complaints. Medications: Reviewed: Yes Vitals/I&O/Wt Last Vital Signs Temp 97.8 F 05/25/22 16:00 Pulse 66 05/25/22 16:00 Resp 19 H 05/25/22 16:00 BP 167/72 05/25/22 16:00 Pulse Ox 96 05/25/22 16:00 O2 Del Method 05/25/22 16:00 O2 Flow Rate 3 05/25/22 13:27 05/25/22 05/25/22 05/25/22 06:59 14:59 22:59 Intake Total 260 / 260 Output Total 300 / 300 Balance -300 / 1020 260 / 260 Weight last 48 hrs Weight 69.581 kg Physical Exam Narrative: General: Elderly sitting comfortably in a chair at bedside, no complaints. Appears comfortable. HEENT: PERRLA, pupils bilaterally equal and reactive, pallors not present Chest: Scattered wheezing to auscultation bilaterally CVS: S1-S2 regular, no murmurs, no tachycardia, no gallops, no rubs Abdomen: Soft, nontender, no organomegaly, bowel sounds present Neuro: No focal deficits, no facial deformity, AO x3, power 5/5 in all limbs Extremities: Pitting edema bilateral lower extremities. Urinary Catheter Management: Sherman: Cath Placed During This Visit: yes, but has since been removed by the nurse Reason for Continuing Indwelling Catheter: Accurate Measurement of Urinary Output in Critically Ill Patients Urinary Catheter Date of Insertion: 05/10/22 Urinary Catheter Time of Insertion: 17:13 Date Urinary Catheter Removed: 05/15/22 Time Urinary Catheter Discontinued: 15:00 Data 05/23/22 15:55 05/17/22 04:28 Micro: Microbiology 05/24/22 10:00 Occult Blood (FIT) - Final Stool Routine Collection A&P Assessment and plan (1) Gram-negative bacteremia: 72-year-old lady with multiple comorbidities admitted to the hospital since May 10, 2022 after presenting with altered mental status, generalized weakness, tested positive for rhino enterovirus. Incidentally discovered to have E. coli bacteremia as part of the work-up. Blood culture 1 of 3 positive on May 10 for E. coli, susceptible to ceftriaxone. CT of the abdomen and pelvis without any focal abscess or collections. No evidence of colitis. UA negative upon admission. Incidentally noted retroperitoneal hematoma, suspect that this is likely secondary to her multiple falls at home, most recently it appears patient was in the ER on May 05 when she was diagnosed with anterior inferior iliac spine. Possible that E. coli bacteremia upon admission may have been a result of GI translocation given her rhino enterovirus positivity and being on steroids. Patient did receive higher doses of steroids while in the hospital for COPD exacerbation. Unlikely that her hematomas are related to her bacteremia, likely this is an incidental finding related to bleeding. Strain is susceptible to ceftriaxone, patient is currently on treatment with the same. Now status post 10 days of total therapy (05/11-05/20). (2) Metabolic encephalopathy: This is essentially resolved. Patient has intermittent episodes of confusion, however at the time of my assessment today she is alert awake oriented x3. (3) Enteroviral infection: Rhino/ entero positive upon admission, appears to be clinically improving in this regard. She is afebrile. (4) Retroperitoneal hematoma: Suspect this is related to recurrent falls while being on Eliquis.. Low suspic ion for secondary embolization. Anticoagulation has been discontinued (5) Leukocytosis: resolved (6) Severe depression: Management per primary team and psychiatry. (7) Acute blood loss anemia: Hemoglobin now stable at 9.3. likely due to retroperitoneal bleeding, now stable (8) Unable to function independently: Her depression has been showing improvement. On reassessment today denies suicidal ideation. She has been saying she is looking forward to working with therapy. Pending level 2 approval for her to be able to resume rehabilitation at SNF. Unfortunately poor safety awareness and insight, not retaining information with regards to her condition and treatment of her illness. Reviewed Occupational Therapy assessment together with psychiatry, with finding of 8/13 score on ISSAC, including concerning findings on awareness of dangerous household situations, needing assistance, scoring 3/4 correct, 75% accuracy. Identification of appropriate action for sickness, accidents and emergencies, needing assistance, 25% accuracy, stating for balloon diet became infected she would go to ER or use aloe vera. For a cold she would take her prescription BP medicine. Number she will call if her house caught fire; I would have to look that up in my personal book. Does not state 911. Does not meet minimal criteria for independence on these and a number of other assessment points. Please see full results for details. Awaiting placement at level 2 facility (9) Acute exacerbation of chronic obstructive airways disease: Gradually improving. She subjectively feels breathing is slightly easier. Continue prednisone 5 mg. Continue breathing treatments. She is empirically on antibiotics for E. coli bacteremia. Patient noted to have bilateral lower extremity edema. Echocardiogram on May 10 suggestive of grade 1 diastolic dysfunction. continue Lasix 20 mg p.o. daily. (10) Transaminitis: (11) AAA (abdominal aortic aneurysm): Follow-up outpatient (12) Paroxysmal A-fib: (13) Nicotine addiction: (14) Lesion of liver: Follow-up outpatient (15) Old cerebrovascular accident (CVA) without late effect: (16) Acute CHF: Improved. Transitioned to oral Lasix. Continue. 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 Moderate amount of slough. Requested to change dressings with collagenase ointment. Foam dressing. Continue frequent repositioning. Continue protein supplementation with regular diet. Left anterior inferior iliac spine fracture: Found on CT he during ER visit prior to this admission. Severe pain bothering her today did not respond to oral opioid, required 1 dose of IV Dilaudid. Rhabdomyolysis: Improved. History of lung nodule suspected for malignancy, status post radiation therapy. Discussed her condition and plans with her son who is in agreement. Plan for today. Extra dose of 40 mg IV Lasix today. Change daily dose of Lasix to 40 mg p.o. daily from 20 mg p.o. daily currently due to increased lower ex tremity edema. Pending level 2 Auth for transition to SNF. Attestations Medical Necessity Statement*: Appropriate disposal IV Lasix today, increase diuretics. Coding Level of Care Code Acute Code for Chg Fwd Diagnoses Gram-negative bacteremia R78.81 Metabolic encephalopathy G93.41 Enteroviral infection B34.1 Retroperitoneal hematoma K66.1 Leukocytosis D72.829 Severe depression F32.2 Acute blood loss anemia D62 Unable to function independently Z78.9 Acute exacerbation of chronic obstructive airways disease J44.1 Transaminitis R74.01 AAA (abdominal aortic aneurysm) I71.40 Paroxysmal A-fib I48.0 Nicotine addiction F17.200 Lesion of liver K76.9 Old cerebrovascular accident (CVA) without late effect Z86.73 Acute CHF I50.9
[2022-05-25] MEDS: FUROsemide 10 mg/mL SDV 4mL 40 MG IVP (17:28)
[2022-05-25] MEDS: temazepam 15 mg Capsule PO (20:49)
[2022-05-25] MEDS: mirtazapine 15 mg Tablet PO (20:50)
[2022-05-26] VITALS (13 sets, daily range): BP systolic 110–166; BP diastolic 53–73; PULSE 61–90; RESP 14–26; TEMP 36.6; O2SAT 90–96
[2022-05-26] MEDS: ipratropium 0.5 mg/2.5 mL Neb INHALATION ×3 (03:41→14:26)
[2022-05-26] MEDS: albuterol 2.5 mg/3 mL Neb INHALATION ×3 (03:41→14:26)
[2022-05-26] MEDS: HYDROcodone-acetaminophen 5-325 mg Tablet 1 TAB PO ×2 (04:37→19:42)
[2022-05-26] MEDS: budesonide 0.5 mg/2 mL Neb 0.25 MG INHALATION (08:19)
[2022-05-26] MEDS: dilTIAZem 60 mg Tablet 120 MG PO ×2 (09:29→17:42)
[2022-05-26] MEDS: haloperidol 1 mg Tablet PO ×2 (09:30→17:38)
[2022-05-26] MEDS: escitalopram 10 mg Tablet PO (09:30)
[2022-05-26] MEDS: metoprolol tartrate 25 mg Tablet 12.5 MG PO ×2 (09:30→19:41)
[2022-05-26] MEDS: pantoprazole DR 40 mg Tablet PO (09:30)
[2022-05-26] MEDS: ferrous sulfate EC 325 mg Tablet PO ×2 (09:31→17:42)
[2022-05-26] MEDS: predniSONE 10 mg Tablet 5 MG PO (09:31)
[2022-05-26] MEDS: FUROsemide 40 mg Tablet PO (09:31)
[2022-05-26] MEDS: nystatin 100,000 unit/mL UDC 5 mL 100000 UNIT PO ×4 (09:32→19:42)
[2022-05-26] MEDS: collagenase oint 30 gm 1 APPLIC TOPICAL (09:32)
[2022-05-26] MEDS: lidocaine 5% Patch 1 PATCH TOPICAL (09:32)
--- NOTE | 2022-05-26 14:22 | P.PN_ITS ---
Subjective Subjective: Patient's edema is improving today. After the extra dose of Lasix. She denies any new complaints. Breathing is comfortable. Medications: Reviewed: Yes Vitals/I&O/Wt Last Vital Signs Temp 97.9 F 05/26/22 07:43 Pulse 86 05/26/22 08:29 Resp 20 H 05/26/22 08:00 BP 166/59 05/26/22 07:43 Pulse Ox 92 05/26/22 08:00 O2 Del Method 05/26/22 08:00 O2 Flow Rate 3 05/26/22 08:00 05/25/22 05/26/22 05/26/22 22:59 06:59 14:59 Intake Total 260 / 520 720 / 720 Output Total 1650 / 1650 650 / 2300 300 / 300 Balance -1390 / -1130 -650 / -1780 420 / 420 Weight last 48 hrs Weight 69.581 kg Physical Exam Narrative: General: Elderly sitting comfortably in a chair at bedside, no complaints. Getting a breathing treatment currently HEENT: PERRLA, pupils bilaterally equal and reactive, pallors not present Chest: Scattered wheezing to auscultation bilaterally CVS: S1-S2 regular, no murmurs, no tachycardia, no gallops, no rubs Abdomen: Soft, nontender, no organomegaly, bowel sounds present Neuro: No focal deficits, no facial deformity, AO x3, power 5/5 in all limbs Extremities: Pitting edema bilateral lower extremities. Urinary Catheter Management: Sherman: Cath Placed During This Visit: yes, but has since been removed by the nurse Reason for Continuing Indwelling Catheter: Accurate Measurement of Urinary Output in Critically Ill Patients Urinary Catheter Date of Insertion: 05/10/22 Urinary Catheter Time of Insertion: 17:13 Date Urinary Catheter Removed: 05/15/22 Time Urinary Catheter Discontinued: 15:00 Data 05/23/22 15:55 05/17/22 04:28 A&P Assessment and plan (1) Gram-negative bacteremia: Now resolved. Source not entirely clear. May have been GI translocation Now status post 10 days of total therapy (05/11-05/20). (2) Metabolic encephalopathy: This is essentially resolved. Patient has remained alert awake oriented x3 on multiple assessments. (3) Enteroviral infection: Rhino/ entero positive upon admission, this has now resolved. (4) Retroperitoneal hematoma: Suspect this is related to recurrent falls while being on Eliquis.. Low suspicion for secondary embolization. Anticoagulation has been discontinued (5) Leukocytosis: resolved (6) Severe depression: Management per psychiatry. (7) Acute blood loss anemia: Hemoglobin has been stable over several days. He remains off anticoagulation. If hemoglobin stable tomorrow, will start prophylactic dose. (8) Unable to function independently: Her depression has been showing improvement. On reassessment today denies massey icidal ideation. She has been saying she is looking forward to working with therapy. Pending level 2 approval for her to be able to resume rehabilitation at SNF. Unfortunately poor safety awareness and insight, not retaining information with regards to her condition and treatment of her illness. Reviewed Occupational Therapy assessment together with psychiatry, with finding of 8/13 score on ISSAC, including concerning findings on awareness of dangerous household situations, needing assistance, scoring 3/4 correct, 75% accuracy. Identification of appropriate action for sickness, accidents and emergencies, needing assistance, 25% accuracy, stating for balloon diet became infected she would go to ER or use aloe vera. For a cold she would take her prescription BP medicine. Number she will call if her house caught fire; I would have to look that up in my personal book. Does not state 911. Does not meet minimal criteria for independence on these and a number of other assessment points. Please see full results for details. Awaiting placement at level 2 facility (9) Acute exacerbation of chronic obstructive airways disease: Currently doing well in this regard (10) Transaminitis: (11) AAA (abdominal aortic aneurysm): Follow-up outpatient (12) Paroxysmal A-fib: (13) Nicotine addiction: (14) Lesion of liver: Follow-up outpatient (15) Old cerebrovascular accident (CVA) without late effect: (16) Acute CHF: Improved. Transitioned to oral Lasix. Needed an extra dose of 40 mg IV Lasix yesterday for worsening edema. I increased her daily dose of p.o. Lasix from 20 mg daily to 40 mg daily. We will give her an additional 20 mg IV Lasix today. 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 Chronic venous insufficiency may be contributing. Doppler obtained during this admission on May 10 was without any evidence of acute DVT. Weighing the benefits versus risk of anticoagulation, given that patient currently has retroperitoneal hematoma with anemia would like to hold off on resuming anticoagulation. If hemoglobin is stable will resume a prophylactic dose of heparin. Encourage ambulation with assistance. 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 Moderate amount of slough. Requested to change dressings with collagenase ointment. Foam dressing. Continue frequent repositioning. Continue protein supplementation with regular diet. Left anterior inferior iliac spine fracture: Found on CT he during ER visit prior to this admission. Pain is currently well controlled. Appreciate therapy assessments. Rhabdomyolysis: Improved. History of lung nodule suspected for malignancy, status post radiation therapy. Discussed her condition and plans with her son who is in agreement. Plan for today. Extra dose of 20 mg IV Lasix today. Labs tomorrow to assess stability of hemoglobin following which DVT prophylaxis may be resumed. Overall patient is stable, we are awaiting appropriate disposition planning to discharge patient. Attestations 2 Medical Necessity Statement*: Awaiting appropriate disposition planning, extra dose of IV Lasix today Coding Level of Care Code Acute Code for Chg Fwd Straight Forward/Low MDM includes number and complexity of problems actively addressed during encounter, amount and/or complexity of data reviewed/ordered and described risk of complication, morbidity or mortality of management as documented Diagnoses Gram-negative bacteremia R78.81 Metabolic encephalopathy G93.41 Enteroviral infection B34.1 Retroperitoneal hematoma K66.1 Leukocytosis D72.829 Severe depression F32.2 Acute blood loss anemia D62 Unable to function independently Z78.9 Acute exacerbation of chronic obstructive airways disease J44.1 Transaminitis R74.01 AAA (abdominal aortic aneurysm) I71.40 Paroxysmal A-fib I48.0 Nicotine addiction F17.200 Lesion of liver K76.9 Old cerebrovascular accident (CVA) without late effect Z86.73 Acute CHF I50.9
[2022-05-26] MEDS: FUROsemide 10 mg/mL SDV 2mL 20 MG IVP (15:33)
--- NOTE | 2022-05-26 18:22 | P.NPUPN_ITS ---
Subjective NPU Subjective: Patient 72-year-old white female currently at the [facility] who had expressed suicidal ideation associated with her continued multiple medical comorbidities. The patient had no changes reported in behavior per staff with the reduction in Haldol to 2 mg/day since earlier this week. There was no e vidence of increased agitation or irritability noted. She had reported some difficulties falling asleep. She stated that she was waiting to go to physical rehabilitation. She had been pleasant and cooperative throughout much of the day according to the nurses. She did not endorse any side effects from the medication. Mental Status Exam MSE Comments: This is a slender white female in a hospital gown with limited grooming but adequate eye contact. She was pleasant and conversant throughout much of the interview with normal rate rhythm and prosody in regards to her speech. Her mood was described as pretty good . Her affect appeared bright. There was no clear evidence of delusional thinking. She did not appear to be responding to internal stimuli. She was alert and oriented to person place time and situation. Her recent and remote memory appeared intact. Her insight remained limited. Her judgment appeared guarded at this time. Her impulse control remained guarded as well. She minimized any thoughts of hurting herself or others. She was alert and oriented to person place and time. Vitals/I&O/Wt Last Vital Signs Temp 97.9 F 05/26/22 07:43 Pulse 61 05/26/22 15:32 Resp 18 05/26/22 15:32 BP 110/53 05/26/22 15:32 Pulse Ox 93 05/26/22 15:32 O2 Del Method 05/26/22 15:32 O2 Flow Rate 3 05/26/22 14:00 05/26/22 05/26/22 05/26/22 06:59 14:59 22:59 Intake Total 720 / 720 240 / 960 Output Total 650 / 2300 300 / 300 Balance -650 / -1780 420 / 420 240 / 660 Weight last 48 hrs Weight 69.581 kg Physical Exam Urinary Catheter Management: Sherman: Cath Placed During This Visit: yes, but has since been removed by the nurse Reason for Continuing Indwelling Catheter: Accurate Measurement of Urinary Output in Critically Ill Patients Urinary Catheter Date of Insertion: 05/10/22 Urinary Catheter Time of Insertion: 17:13 Date Urinary Catheter Removed: 05/15/22 Time Urinary Catheter Discontinued: 15:00 Data NPU 05/23/22 15:55 05/17/22 04:28 A&P Assessment and plan (1) Nicotine addiction: (2) Suicidal ideation: (3) Severe depression: (4) Acute alteration in mental status: Plan This is a 72-year-old white female with recent history of last and medical decline who presents reporting depression and anxiety and thoughts of lethality. 1. Continue Lexapro 10 mg daily along with Remeron at 15 mg at night. Continue Haldol to 1mg twice a day at this time, concern about some muscle stiffness which appears better since the change. 2. This patient may require guardianship, not able to make reasonable medical decisions regarding her care despite being informed of risks and benefits of care. Family not able to manage her care at home. Occupational therapy evaluation shows that patient remains an extremely poor candidate to return home independently given her inability to make good safe decisions (see detailed results of the evaluation) See Results of Tiffanie for further details. - Shows evidence of inability to live independently particularly safety issues and understanding danger. 3. We will continue to follow, supportive of fdc placement. Attestations NPU Medical Necessity Statement*: Not applicable regarding inpatient psychiatric treatment for patient at this time. Will continue to follow on consults. Coding Level of Care Code Acute Code for [facility] Fwd Diagnoses Nicotine addiction F17.200 Suicidal ideation R45.851 Severe depression F32.2 Acute alteration in mental status R41.82
[2022-05-26] MEDS: temazepam 15 mg Capsule PO (19:41)
[2022-05-26] MEDS: mirtazapine 15 mg Tablet PO (19:42)
[2022-05-27] VITALS (12 sets, daily range): BP systolic 107–158; BP diastolic 49–79; PULSE 62–90; RESP 16–20; TEMP 36.9–37.9; O2SAT 89–95
[2022-05-27] MEDS: ipratropium 0.5 mg/2.5 mL Neb INHALATION ×3 (03:46→13:53)
[2022-05-27] MEDS: albuterol 2.5 mg/3 mL Neb INHALATION ×3 (03:47→13:53)
[2022-05-27 03:59] LABS: Basophils # 0.1 10^3/uL (0.0-0.1); Basophils % 0.8 %; Eosinophils # 0.1 10^3/uL (0.0-0.8); Eosinophils % 1.5 %; Hematocrit 29.7 % (37.0-47.0); Hemoglobin 8.9 g/dL (11.5-15.3); Lymphocytes # 0.9 10^3/uL (0.8-4.8); Lymphocytes % 15.2 %; Mean Corpuscular Hemoglobin 25.8 pg (28.0-34.0); Mean Corpuscular Volume 86.1 fl (81-99); Mean Platelet Volume 9.9 fL (7.4-10.4); Monocytes # 0.9 10^3/uL (0.2-0.9); Monocytes % 14.2 %; Neutrophils # 4.15 10^3/uL (1.8-7.7); Nucleated Red Blood Cells % 0 %; Platelet Count 220 10^3/cmm (130-400); Red Blood Count 3.45 10^6/uL (4.1-5.3); Red Cell Distribution Width 14.8 % (12.1-15.1); White Blood Count 6.1 10^3/uL (4.0-10.0)
[2022-05-27 04:18] LABS: Alanine Aminotransferase 15 U/L (0-33); Albumin Level 2.7 g/dL (3.5-5.2); Alkaline Phosphatase 86 U/L (35-105); Anion Gap 11.7 (5-19); Aspartate Amino Transferase 14 U/L (0-32); Blood Urea Nitrogen 9 mg/dL (8-23); Calcium 8.4 mg/dL (8.5-10.5); Carbon Dioxide 32 mmol/L (22-29); Chloride 96 mmol/L (98-107); Globulin 2.9 g/dL (1.3-4.6); Glucose 82 mg/dL (65-115); Osmolality Calculated 280 mOsm/kg (285-295); Potassium 3.7 mmol/L (3.5-5.1); Sodium 136 mmol/L (136-145); Total Bilirubin 0.3 mg/dL (0.15-1.2); Total Protein 5.6 g/dL (6.6-8.7)
[2022-05-27 07:50] LABS: Glucose Point of Care 94 mg/dL (70-110)
[2022-05-27] MEDS: metoprolol tartrate 25 mg Tablet 12.5 MG PO ×2 (08:34→20:09)
[2022-05-27] MEDS: escitalopram 10 mg Tablet PO (08:34)
[2022-05-27] MEDS: ferrous sulfate EC 325 mg Tablet PO ×2 (08:35→17:32)
[2022-05-27] MEDS: pantoprazole DR 40 mg Tablet PO (08:36)
[2022-05-27] MEDS: dilTIAZem 60 mg Tablet 120 MG PO ×2 (08:36→17:31)
[2022-05-27] MEDS: haloperidol 1 mg Tablet PO ×2 (08:36→17:32)
[2022-05-27] MEDS: predniSONE 10 mg Tablet 5 MG PO (08:36)
[2022-05-27] MEDS: FUROsemide 40 mg Tablet PO (08:37)
[2022-05-27] MEDS: nystatin 100,000 unit/mL UDC 5 mL 100000 UNIT PO ×3 (08:38→20:16)
[2022-05-27] MEDS: polyethylene glycol 3350 Pkt 17 gm PO ×2 (08:39→17:32)
[2022-05-27] MEDS: collagenase oint 30 gm 1 APPLIC TOPICAL (08:43)
[2022-05-27] MEDS: lidocaine 5% Patch 1 PATCH TOPICAL (08:49)
--- NOTE | 2022-05-27 09:25 | P.DS_ITS ---
Discharge Providers Date of Admission: 05/10/22 21:58 Date of Discharge: May 27, 2022 Attending Provider at Admission: Anoop Larkin Attending Provider at Discharge: Rafael Rich MD Primary Care Provider: Thompson Zuluaga MD Diagnoses at Discharge Discharge Diagnosis (1) Suicidal ideation: Details from hospital stay: improving Status: Acute (2) Severe depression: Details from hospital stay: improving Status: Acute (3) Acute alteration in mental status: Details from hospital stay: resolved Status: Acute (4) Unable to function independently: Status: Acute (5) Acute blood loss anemia: Details from hospital stay: Hb stable at 8.9 at discharge Status: Acute (6) Gram-negative bacteremia: Details from hospital stay: resolved Status: Acute (7) Enteroviral infection: Details from hospital stay: resolved Status: Acute (8) Retroperitoneal hematoma: Details from hospital stay: stable Status: Acute (9) Acute exacerbation of chronic obstructive airways disease: Details from hospital stay: stable on scheduled nebulization Status: Acute (10) Nicotine addiction: Status: Acute (11) Acute CHF: Details from hospital stay: acute on chronic diastolic CHF ?LV normal with EF of 55 to 60% ?Grade 1 diastolic dysfunction currently on lasix, edema improving over lower extremities Status: Acute (12) DVT, bilateral lower limbs: Details from hospital stay: chronic DVT, off Eliquis this admission due to retroperitoneal hematomas, likely from recurrent falls but spontaneous bleeding cannot be excluded Status: Acute Qualifiers: Affected thrombotic vein of extremity: unspecified vein of extremity Chronicity: unspecified Qualified Code(s): I82.403 - Acute embolism and thrombosis of unspecified deep veins of lower extremity, bilateral Permanent problem details: -Noted to have bilateral non-occlusive DVTs of uncertain age involving the right superficial femoral and popliteal veins as well as left popliteal vein -CTA negative for PE -was on eliquis 2.5mg BID for life, however discontinued in May 2022 due to retroperitoneal hematomas and acute blood loss anemia Reason for Visit Reason for Visit: SOB, cant walk, SI Brief History: 72-year-old lady with history of advanced COPD normally on 5 L of oxygen, chronic prednisone 5 mg, history of chronic DVT, anticoagulation with Eliquis, A-fib, additional history of radiation therapy due to suspected cancerous lung nodule, without suspicious nodules on repeat imaging, moderate aortic stenosis, smoking addiction, other comorbidities has had recent significant functional decline at home especially in the days preceding admission, a visit to ER prior to admit with sudden left side abdomen/pelvic pain, recurrent falls, with finding of left anterior inferior iliac spine fracture. Return to the hospital for this admit due to concerns of progressive weakness, unable to get out from bed, as well as severe depression and suicidal statements. Also with worsening hypoxia, on presentation with enterorhinovirus infection also lower extremity edema, CHF exacerbation, as well as rather elevated troponin 396, hyponatremia, acute encephalopathy, lethargic, moderately confused, with incidental finding of 3.8 cm abdominal aortic aneurysm but also new small left iliopsoas hematoma not present on prior imaging, and possibly spontaneous in originon anticoagulation. Subsequently also with finding of E. coli bacteremia of unclear source, perhaps GI translocation due to enteroviral illness, s/p treatment with ceftriaxone for 10 days. She has been showing gradual improvement during admission. She has completed course of IV antibiotic. Hemoglobin remained relatively stable. Eliquis has been discontinued due to retroperitoneal hematomas. Repeat Hb has remained stable ~9 over several days. Repeat CAT scan did not show any enlargement of the hematoma. She was seen by psychiatry, her medications were adjusted and depression has been gradually improving. She has not had suicidal ideation for some time now. Encephalopathy overall resolved. She is currently alert , awake and oriented x 3, converses appropriately. She has been gradually getting stronger, much more interactive, most of the time in better spirits. Sitting up in chair. Working with therapy. Chronic/preadmission pressure wound on her sacrum is treated with some Santyl dressing changes. Showing improvement. She is being transitioned to a assisted facility for continued therapy, . As per discussions with psychiatry, further assessments, as well as assessment on ISSAC by OT she is unable to function independently on a number of categories including her personal safety and health. Hospital Course Hospital Course 72-year-old lady with history of advanced COPD normally on 5 L of oxygen, chronic prednisone 5 mg, history of chronic DVT, anticoagulation with Eliquis, A-fib, additional history of radiation therapy due to suspected cancerous lung nodule, without suspicious nodules on repeat imaging, moderate aortic stenosis, smoking addiction, other comorbidities has had recent significant functional decline at home especially in the days preceding admission, a visit to ER prior to admit with sudden left side abdomen/pelvic pain, recurrent falls, with finding of left anterior inferior iliac spine fracture. Return to the hospital for this admit due to concerns of progressive weakness, unable to get out from bed, as well as severe depression and suicidal statements. Also with worsening hypoxia, on presentation with enterorhinovirus infection also lower extremity edema, CHF exacerbation, as well as rather elevated troponin 396, hyponatremia, acute encephalopathy, lethargic, moderately confused, with incidental finding of 3.8 cm abdominal aortic aneurysm but also new small left iliopsoas hematoma not present on prior imaging, and possibly spontaneous in originon anticoagulation. Subsequently also with finding of E. coli bacteremia of unclear source, perhaps GI translocation due to enteroviral illness, s/p treatment with ceftriaxone for 10 days. She has been showing gradual improvement during admission. She has completed course of IV antibiotic. Hemoglobin remained relatively stable. Eliquis has been discontinued due to retroperitoneal hematomas. Repeat Hb has remained stable ~9 over several days. Repeat CAT scan did not show any enlargement of the hematoma. She was seen by psychiatry, her medications were adjusted and depression has been gradually improving. She has not had suicidal ideation for some time now. Encephalopathy overall resolved. She is currently alert , awake and oriented x 3, converses appropriately. She has been gradually getting stronger, much more interactive, most of the time in better spirits. Sitting up in chair. Working with therapy. Chronic/preadmission pressure wound on her sacrum is treated with some Santyl dressing changes. Showing improvement. She is being transitioned to a assisted facility for continued therapy, . As per discussions with psychiatry, further assessments, as well as assessment on ISSAC by OT she is unable to function independently on a number of categories including her personal safety and health. Physical Exam Narrative: General: No acute distress, AO x3 HEENT: PERRLA, pupils bilaterally equal and reactive, pallors not present Chest: Normal vesicular breath sounds, no added sounds, equal good air entry bilaterally CVS: S1-S2 regular, no murmurs, no tachycardia, no gallops, no rubs Abdomen: Soft, nontender, no organomegaly, bowel sounds present Neuro: No focal deficits, no facial deformity, AO x3, power 5/5 in all limbs Extremities: LE pitting edema B/L slowly improving, changes of stasis dermatitis B/L LE, no signs of cellulitis Urinary Catheter Management: Sherman: Cath Placed During This Visit: yes, but has since been removed by the nurse Reason for Continuing Indwelling Catheter: Accurate Measurement of Urinary Output in Critically Ill Patients Urinary Catheter Date of Insertion: 05/10/22 Urinary Catheter Time of Insertion: 17:13 Date Urinary Catheter Removed: 05/15/22 Time Urinary Catheter Discontinued: 15:00 Discharge Data Studies Completed and Pending Completed Studies During Hospitalization Category Date Time Status CT abdomen pelvis w con* [id number] Routine Cat Scan 05/15/22 13:[address] head wo con* [id number] Stat Cat Scan 05/10/22 15:[address] abdomen pelvis [CT angio chest w abd pel w Cat Scan 05/10/22 15:02 Completed con] Stat XR chest 1V portable [id number] Routine Exams 05/13/22 06:00 Completed XR chest 1V portable [id number] Stat Exams 05/10/22 14:14 [place] [id number] Stat Ultrasound 05/10/22 21:58 Completed CV. echo complete* [id number] Routine Ultrasound 05/10/22 21:58 Completed Radiology Impressions Chest/Abdomen/Pelvis CT 05/10/22 15:02 IMPRESSION: 1. Technically limited but negative CT angiogram of the chest. No evidence of acute pulmonary embolism to major branches of the pulmonary vascular tree. 2. COPD with upper lobe emphysematous changes and scattered subsegmental atelectasis mid to lower lung zones. 3. Mild cardiomegaly with diffuse calcification of coronary arteries. IMPRESSION: 1. Small left ilopsoas hematoma possibly spontaneous in origin. Please correlate with appropriate coagulation factors. 2. Diffuse atherosclerotic changes abdominal aorta with 3.8 cm mid abdominal aortic aneurysm. 3. Retroverted uterus with mild expansion of the endometrial cavity that should be further assessed on follow-up nonemergent pelvic ultrasound exam for possible endometrial pathology. Head CT 05/10/22 15:02 IMPRESSION: Diffuse, chronic white matter microvascular changes and indistinct lacunar infarcts both basal ganglia of indeterminate age which could be further assessed on MRI examination clinically warranted. Chest X-Ray 05/13/22 06:00 IMPRESSION: Previously demonstrated lung opacities somewhat more extensive than on the previous examination. Abdomen/Pelvis CT 05/15/22 13:58 IMPRESSION: 1. Stable small iliopsoas hematoma within the left iliac fossa. 2. 3.8 cm calcified abdominal aortic aneurysm unchanged. 3. Additional chronic findings as above. Laboratory Results WBC 6.1 10^3/uL (4.0-10.0) 05/27/22 03:24 RBC 3.45 10^6/uL (4.1-5.3) L 05/27/22 03:24 Hgb 8.9 g/dL (11.5-15.3) L 05/27/22 03:24 Hct 29.7 % (37.0-47.0) L 05/27/22 03:24 MCV 86.1 fl (81-99) 05/27/22 03:24 MCH 25.8 pg (28.0-34.0) L 05/27/22 03:24 MCHC 30.0 g/dL (30.0-36.0) 05/27/22 03:24 RDW 14.8 % (12.1-15.1) 05/27/22 03:24 Plt Count 220 10^3/cmm (130-400) 05/27/22 03:24 MPV 9.9 fL (7.4-10.4) 05/27/22 03:24 Neut % (Auto) 68.0 % 05/27/22 03:24 Lymph % (Auto) 15.2 % 05/27/22 03:24 [place] % (Auto) 14.2 % 05/27/22 03:24 Eos % (Auto) 1.5 % 05/27/22 03:24 Baso % (Auto) 0.8 % 05/27/22 03:24 Neut # (Auto) 4.15 10^3/uL (1.8-7.7) 05/27/22 03:24 Lymph # (Auto) 0.9 10^3/uL (0.8-4.8) 05/27/22 03:24 [place] # (Auto) 0.9 10^3/uL (0.2-0.9) 05/27/22 03:24 Eos # (Auto) 0.1 10^3/uL (0.0-0.8) 05/27/22 03:24 Baso # (Auto) 0.1 10^3/uL (0.0-0.1) 05/27/22 03:24 Nucleated RBC % (auto) 0 % 05/27/22 03:24 Nucleated RBCs # 0.0 /100WBC 05/27/22 03:24 ESR 50 mm/hr (0-15) H 05/15/22 03:20 Specimen Type Arterial 05/10/22 14:20 Sample Site Radial, left 05/10/22 14:20 ABG pH 7.42 (7.35-7.45) 05/10/22 14:20 ABG pCO2 36.5 mmHg (35-45) 05/10/22 14:20 ABG pO2 76.3 mmHg (80.0-100.0) L 05/10/22 14:20 ABG HCO3 23.6 mmol/L (22-26) 05/10/22 14:20 ABG O2 Saturation 96.4 05/10/22 14:20 ABG Base Excess -0.6 mmol/L (-2.0-2.0) 05/10/22 14:20 Duncan Test Pos 05/10/22 14:20 A-a O2 Gradient 3.5 mmHg (5-10) L 05/10/22 14:20 Hematocrit 32.0 % (37-47) L 05/10/22 14:20 Hgb O2 Saturation 93.7 % (95-100) L 05/10/22 14:20 Carboxyhemoglobin 2.4 %THgb (0.4-20.1) 05/10/22 14:20 Methemoglobin 0.4 % (0.4-1.5) 05/10/22 14:20 Total Hemoglobin 10.4 g/dL (12-16) L 05/10/22 14:20 Sodium 129.0 mmol/L (131-143) L 05/10/22 14:20 Potassium 4.3 mmol/L (3.5-5.0) 05/10/22 14:20 Glucose 141.0 mg/dL (70-115) H 05/10/22 14:20 Ionized Calcium 1.1 mmol/L (1.1-1.4) 05/10/22 14:20 O2 Delivery Device Nrb 05/10/22 14:20 O2 Liters/Min 15.0 % 05/10/22 14:20 History Instructor ID [place] 05/10/22 14:20 Sodium 136 mmol/L (136-145) 05/27/22 03:24 Potassium 3.7 mmol/L (3.5-5.1) 05/27/22 03:24 Chloride 96 mmol/L (98-107) L 05/27/22 03:24 Carbon Dioxide 32 mmol/L (22-29) H 05/27/22 03:24 Anion Gap 11.7 (5-19) 05/27/22 03:24 BUN 9 mg/dL (8-23) 05/27/22 03:24 Creatinine 0.5 mg/dL (0.5-0.9) 05/27/22 03:24 GFR Calculation Not Reportable 05/27/22 03:24 Glucose 82 mg/dL (65-115) 05/27/22 03:24 POC Glucose 94 mg/dL (70-110) 05/27/22 07:40 Calculated Osmolality 280 mOsm/kg (285-295) L 05/27/22 03:24 Lactate 2.1 mmol/L (0.5-2.2) 05/10/22 14:10 Calcium 8.4 mg/dL (8.5-10.5) L 05/27/22 03:24 Phosphorus 2.8 mg/dL (2.5-4.5) 05/10/22 14:10 Magnesium 2.4 mg/dL (1.7-2.3) H 05/13/22 04:24 Iron 15 ug/dL (37-145) L 05/15/22 03:20 TIBC 213 mcg/dl 05/15/22 03:20 % Saturation 7.0 % (20-50) L 05/15/22 03:20 Unsat Iron Binding 198 ug/dL (112-347) 05/15/22 03:20 Ferritin 129 ng/mL (15-150) 05/15/22 03:20 Total Bilirubin 0.3 mg/dL (0.15-1.2) 05/27/22 03:24 GGT 56 U/L (5-36) H 05/15/22 14:07 AST 14 U/L (0-32) 05/27/22 03:24 ALT 15 U/L (0-33) 05/27/22 03:24 Alkaline Phosphatase 86 U/L (35-105) 05/27/22 03:24 Ammonia 19 umol/L (11-51) 05/16/22 04:28 Creatine Kinase 371 U/L (26-192) H* 05/12/22 04:24 Troponin T Baseline 396 ng/L (0-10) H* 05/10/22 14:10 Troponin T 120 Minute 354.1 ng/L (0-10) H 05/10/22 16:12 Delta Troponin T -41.9 ABS# (0-10) L 05/10/22 16:12 Troponin T Hi Sens 6Hr 279.7 ng/L (0-10) H 05/10/22 20:15 Troponin T Hi Sens 6Hr Delta -116.3 ng/L (0-12) L 05/10/22 20:15 C-Reactive Protein 179.1 mg/L (0.0-4.9) H 05/16/22 04:28 NT-Pro-B Natriuret Pep 4923 pg/mL (0-125) H 05/10/22 14:10 Total Protein 5.6 g/dL (6.6-8.7) L 05/27/22 03:24 Albumin 2.7 g/dL (3.5-5.2) L 05/27/22 03:24 Globulin 2.9 g/dL (1.3-4.6) 05/27/22 03:24 Lipase 21 U/L (13-60) 05/15/22 14:07 Procalcitonin 0.30 ng/mL (0-0.5) 05/16/22 04:28 TSH 2.50 uIU/mL (0.27-4.20) 05/10/22 14:10 Urine Color Dark yellow (Yellow) 05/10/22 15:37 Urine Appearance Clear (CLEAR) 05/10/22 15:37 Urine pH 5 (5-7) 05/10/22 15:37 Ur Specific [place] 1.010 (1.005-1.030) 05/10/22 15:37 Urine Protein Neg (Negative) 05/10/22 15:37 Urine Glucose (UA) Norm (Normal) 05/10/22 15:37 Urine Ketones Negative (Negative) 05/10/22 15:37 Urine Blood Neg (Negative) 05/10/22 15:37 Urine Nitrate Negative (Negative) 05/10/22 15:37 Urine Bilirubin 1+ (Negative) H 05/10/22 15:37 Urine Urobilinogen 1 mg/dL (Negative) H 05/10/22 15:37 Ur Leukocyte Esterase Negative (Negative) 05/10/22 15:37 Vancomycin Trough 14.5 ug/mL (10-15) 05/16/22 04:28 Salicylates < 0.3 mg/dL (3-10) L 05/10/22 14:10 Urine Opiates Screen Positive ng/mL (Negative) H 05/10/22 15:38 Acetaminophen < 5.0 ug/mL (10-30) L 05/10/22 14:10 Ur Barbiturates Screen Negative ng/mL (Negative) 05/10/22 15:38 Ur Phencyclidine Scrn Negative ng/mL (Negative) 05/10/22 15:38 Ur Amphetamines Screen Negative ng/mL (Negative) 05/10/22 15:38 U Benzodiazepines Scrn Positive ng/mL (Negative) H 05/10/22 15:38 Urine Cocaine Screen Negative ng/mL (Negative) 05/10/22 15:38 U Marijuana (THC) Screen Negative ng/mL (Negative) 05/10/22 15:38 Ethyl Alcohol < 10 mg/dL (0-10) 05/10/22 14:10 L[facility]IS Nuclear Membr Pat Nuclear, speckled A 05/15/22 09:28 [facility] IFA Animal Tis Ttr 1:80 titer H 05/15/22 09: [facility] IFA Animal Tis Res Positive (NEGATIVE) A 05/15/22 09:28 RHONDA-1 Antibody <1.0 neg AI (<1.0 NEG) 05/15/22 09:28 SS-A Antibody <1.0 neg AI (<1.0 NEG) 05/15/22 09:28 SS-B Antibody <1.0 neg AI (<1.0 NEG) 05/15/22 09:28 Sm (Ramirez) Antibody <1.0 neg AI (<1.0 NEG) 05/15/22 09:28 [employer] COMPLAINT CLERK Antibody <1.0 neg AI (<1.0 NEG) 05/15/22 09:28 Scl-70 Antibody <1.0 neg AI (<1.0 NEG) 05/15/22 09:28 Anti-ds DNA IgG (Crith) Negative (NEGATIVE) 05/15/22 09: Centromere B Antibody <1.0 neg AI (<1.0 NEG) 05/15/22 09:28 Thyroid Peroxidase Ab 1 IU/mL (<9) 05/15/22 09:28 Complement C3c 152 mg/dL (83-193) 05/15/22 09:28 Complement C4c 17 mg/dL (15-57) 05/15/22 09:28 CH50 Classical Pathway >60 U/mL (31-60) H 05/15/22 09:28 Coronavirus 229E (PCR) Not detected (NOT DETECT) 05/10/22 14:39 Hepatitis A IgM Ab Non-reactive (Nonreactive) 05/11/22 16:10 Hep Bs Antigen Non-reactive (Nonreactive) 05/11/22 16:10 Hep B Core IgM Ab Non-reactive (Nonreactive) 05/11/22 16:10 Hepatitis C Antibody Non-reactive (Nonreactive) 05/11/22 16:10 Human Metapneumovir PCR Not detected (NOT DETECT) 05/10/22 16:49 Entero/Rhino (PCR) Detected (NOT DETECT) A 05/10/22 16:49 SARS-CoV-2 (PCR) Not detected (NOT DETECT) 05/10/22 14:39 Vitals Last Vital Signs Temp 98.6 F 05/27/22 07:41 Pulse 80 05/27/22 08:00 Resp 17 05/27/22 08:00 BP 135/53 05/27/22 07:41 Pulse Ox 91 05/27/22 08:00 O2 Del Method 05/27/22 08:00 O2 Flow Rate 3 05/27/22 08:00 Discharge Plan Discharge Patient Disposition: Xfer SNF Condition: Stable Prescriptions: New metoprolol tartrate 25 mg Tablet 12.5 mg PO BID@0900,2100 30 Days Qty: 30 0RF lidocaine 5 % Adhesive Patch,Medicated 1 patch topical [id number] PRN (Reason: pain) 30 Days Qty: 30 0RF ferrous sulfate 325 mg (65 mg iron) Tablet,Delayed Release (Dr/Ec) 325 mg PO BIDWM 30 Days Qty: 30 0RF mirtazapine 15 mg Tablet 15 mg PO BEDTIME 30 Days Qty: 30 0RF escitalopram oxalate 10 mg Tablet 10 mg PO DAILY 30 Days Qty: 30 0RF haloperidol 1 mg Tablet 1 mg PO BID 30 Days Qty: 60 0RF pantoprazole 40 mg Tablet,Delayed Release (Dr/Ec) 40 mg PO DAILY 30 Days Qty: 30 0RF Lanolin (HPA) 100 % Cream 1 applic topical PRN PRN (Reason: Dryness) 30 Days Qty: 10 0RF polyethylene glycol 3350 17 gram Powder In Packet 17 g PO BID 30 Days Qty: 30 0RF Continued albuterol sulfate [ProAir HFA] 90 mcg/actuation HFA aerosol inhaler 2 puff INHALATION Q6H PRN (Reason: Shortness Of Breath) albuterol sulfate 2.5 mg /3 mL (0.083 %) solution for nebulization 2.5 mg inhalation Q6H PRN (Reason: bronchospasm) Qty: 180 5RF alprazolam 0.25 mg tablet 0.25 mg PO BID PRN (Reason: Anxiety) temazepam 15 mg capsule 15 mg PO BEDTIME PRN (Reason: sleep) Rx Instructions: 1-2 caps as needed at HS (DME) Home oxygen See Rx Instructions .Route .MEDSUPPLY Qty: 1 0RF Rx Instructions: give machine and supplies. 3 L per NC at rest/ sleep and with activity fluticasone propionate 50 mcg/actuation spray,suspension 1 spray intranasal Q12H Qty: 16 4RF diltiazem HCl 120 mg tablet 120 mg PO BID Trelegy Ellipta 100-62.5-25 mcg blister with device 1 inh INHALATION DAILY@09 hydrocodone-acetaminophen 5-325 mg tablet 1 tab PO Q6H PRN (Reason: pain) Qty: 14 0RF prednisone 5 mg tablet 5 mg PO DAILY Changed furosemide 20 mg tablet 40 mg PO QAM 30 Days Qty: 30 0RF Discontinued Eliquis 2.5 mg tablet 2.5 mg PO BID Qty: 60 3RF Discharge Orders: Discharge Order (Routine); Ordered 05/27/22 Ordered By: Kalyn Gil Referrals: Thompson Zuluaga MD [Primary Care Provider] - 2 weeks Discharge Diet: As Directed Discharge Activity: As per PT/OT instructions Discharge Attestations Time Spent in Discharge Care*: greater than 30 min Status at Discharge: Cognitive status at discharge: cognitively intact , Behavioral status at discharge: cooperative and independent in ADL's , Quality Metrics Clinical Quality Measures [ No reported AMI, CVA or VTE this stay] Coding Level of Care Code Acute Code for [facility] Fwd Diagnoses Suicidal ideation R45.851 Severe depression F32.2 Acute alteration in mental status R41.82 Unable to function independently Z78.9 Acute blood loss anemia D62 Gram-negative bacteremia R78.81 Enteroviral infection B34.1 Retroperitoneal hematoma K66.1 Acute exacerbation of chronic obstructive airways disease J44.1 Nicotine addiction F17.200 Acute CHF I50.9 DVT, bilateral lower limbs I82.403 Affected thrombotic vein of extremity: unspecified vein of extremity Chronicity: unspecified
[2022-05-27] MEDS: budesonide 0.5 mg/2 mL Neb 0.25 MG INHALATION (13:52)
[2022-05-27] MEDS: HYDROcodone-acetaminophen 5-325 mg Tablet 1 TAB PO (20:08)
[2022-05-27] MEDS: mirtazapine 15 mg Tablet PO (20:08)
[2022-05-27] MEDS: temazepam 15 mg Capsule PO (20:09)
[2022-05-28] VITALS (15 sets, daily range): BP systolic 108–155; BP diastolic 50–68; PULSE 63–79; RESP 16–20; TEMP 36.4–37.2; O2SAT 2–92
[2022-05-28] MEDS: ipratropium 0.5 mg/2.5 mL Neb INHALATION ×4 (02:49→20:58)
[2022-05-28] MEDS: albuterol 2.5 mg/3 mL Neb INHALATION ×4 (02:49→20:56)
[2022-05-28] MEDS: acetaminophen 325 mg Tablet 650 MG PO ×3 (02:56→20:15)
[2022-05-28] MEDS: budesonide 0.5 mg/2 mL Neb 0.25 MG INHALATION ×2 (07:57→20:56)
[2022-05-28] MEDS: nystatin 100,000 unit/mL UDC 5 mL 100000 UNIT PO ×3 (09:20→20:14)
[2022-05-28] MEDS: lidocaine 5% Patch 1 PATCH TOPICAL ×2 (09:20→20:16)
[2022-05-28] MEDS: polyethylene glycol 3350 Pkt 17 gm PO (09:20)
[2022-05-28] MEDS: escitalopram 10 mg Tablet PO (09:21)
[2022-05-28] MEDS: dilTIAZem 60 mg Tablet 120 MG PO ×2 (09:21→17:32)
[2022-05-28] MEDS: FUROsemide 40 mg Tablet PO (09:21)
[2022-05-28] MEDS: ferrous sulfate EC 325 mg Tablet PO ×2 (09:22→17:33)
[2022-05-28] MEDS: metoprolol tartrate 25 mg Tablet 12.5 MG PO ×2 (09:22→20:14)
[2022-05-28] MEDS: predniSONE 10 mg Tablet 5 MG PO (09:23)
[2022-05-28] MEDS: pantoprazole DR 40 mg Tablet PO (09:25)
[2022-05-28] MEDS: collagenase oint 30 gm 1 APPLIC TOPICAL (09:26)
--- NOTE | 2022-05-28 11:13 | P.PN_ITS ---
Subjective Subjective: Feeling well today. States that she is still waiting for discharge. No new problems today. Denies SI, says that she is focused on getting better and going back to confucian[facility]. Vitals/I&O/Wt Last Vital Signs Temp 99.0 F 05/28/22 04:00 Pulse 78 05/28/22 08:03 Resp 18 05/28/22 07:58 BP 146/64 05/28/22 09:14 Pulse Ox 86 L 05/28/22 09:14 O2 Del Method 05/28/22 07:58 O2 Flow Rate 3 05/28/22 07:58 05/27/22 05/28/22 05/28/22 22:59 06:59 14:59 Intake Total 1260 / 2460 400 / 2860 480 / 480 Output Total 600 / 600 0 / 600 Balance 660 / 1860 400 / 2260 480 / 480 Weight last 48 hrs Weight 128 lb 6.4 oz Physical Exam Narrative: General: Cooperative patient in no apparent distress. Well developed. HEENT: Normocephalic, Atraumatic. External ears normal. Nasal passages patent without drainage. MMM. Heart: RRR. Resp: LCTA. No respiratory distress, no use of accessory muscles. Abd: Soft, non-tender. Non-distended. Extremities: No edema. Skin: No rash or lesions on exposed areas. Psych: Denies SI,HI. Urinary Catheter Management: Sherman: Cath Placed During This Visit: yes, but has since been removed by the nurse Reason for Continuing Indwelling Catheter: Accurate Measurement of Urinary Output in Critically Ill Patients Urinary Catheter Date of Insertion: 05/10/22 Urinary Catheter Time of Insertion: 17:13 Date Urinary Catheter Removed: 05/15/22 Time Urinary Catheter Discontinued: 15:00 Data 05/27/22 03:24 05/27/22 03:24 A&P Assessment and plan (1) Nicotine addiction: (2) Suicidal ideation: (3) Severe depression: (4) Acute alteration in mental status: (5) Metabolic encephalopathy: (6) Gram-negative bacteremia: (7) Transaminitis: Plan This is a 72-year-old white female with recent history of last and medical decline who presents reporting depression and anxiety and SI. Other acute illnesses are resolved at this time. Continue treatment for sacral decubitus ulcer. Continue Lexapro 10 mg daily along with Remeron at 15 mg at night. Continue Haldol to 1mg twice a day at this time, concern about some muscle stiffness which appears better since the change. This patient may require guardianship, not able to make reasonable medical decisions regarding her care despite being informed of risks and benefits of care. Family not able to manage her care at home. Occupational therapy evaluation shows that patient remains an extremely poor candidate to return home independently given her inability to make good safe decisions (see detailed results of the evaluation) See Results of Tiffanie for further details. - Shows evidence of inability to live independently particularly safety issues and understanding danger. Currently waiting on acceptance to SNF. Case management will update and will arrange for discharge when this has been organized. Attestations Medical Necessity Statement*: Awaiting appropriate disposition planning and sacral ulcer management until suitable facility is determined. Coding Level of Care Code Acute Code for Chg Fwd Straight Forward/Low MDM includes number and complexity of problems actively addressed during encounter, amount and/or complexity of data reviewed/ordered and described risk of complication, morbidity or mortality of management as documented Diagnoses Nicotine addiction F17.200 Suicidal ideation R45.851 Severe depression F32.2 Acute alteration in mental status R41.82 Metabolic encephalopathy G93.41 Gram-negative bacteremia R78.81 Transaminitis R74.01
[2022-05-28 11:28] LABS: Glucose Point of Care 129 mg/dL (70-110)
[2022-05-28] MEDS: lanolin oint 7 gm 1 APPLIC TOPICAL (15:37)
--- NOTE | 2022-05-28 17:54 | PC.NURSE ---
pt off of haldol orally all shift today.pt very calm,cooperative,rings call cruz to ask assistance to restroom.
[2022-05-28] MEDS: mirtazapine 15 mg Tablet PO (20:15)
[2022-05-29] VITALS (14 sets, daily range): BP systolic 131–178; BP diastolic 57–83; PULSE 64–96; RESP 16–22; TEMP 36.6–37.3; O2SAT 6–93
[2022-05-29] MEDS: albuterol 2.5 mg/3 mL Neb INHALATION ×4 (02:44→19:40)
[2022-05-29] MEDS: acetaminophen 325 mg Tablet 650 MG PO ×2 (03:14→21:19)
--- NOTE | 2022-05-29 06:49 | PC.NURSE ---
Patient A&OX4, cooperative, and pleasant, up to chair, on oxymask at 6L, SOB with exertion, crackles noted to right side
[2022-05-29] MEDS: ipratropium 0.5 mg/2.5 mL Neb INHALATION ×3 (08:33→19:40)
[2022-05-29] MEDS: budesonide 0.5 mg/2 mL Neb 0.25 MG INHALATION ×2 (08:33→19:41)
[2022-05-29] MEDS: lidocaine 5% Patch 1 PATCH TOPICAL ×2 (08:59→20:20)
[2022-05-29] MEDS: nystatin 100,000 unit/mL UDC 5 mL 100000 UNIT PO ×4 (08:59→20:19)
[2022-05-29] MEDS: FUROsemide 40 mg Tablet PO (09:00)
[2022-05-29] MEDS: dilTIAZem 60 mg Tablet 120 MG PO ×2 (09:00→16:44)
[2022-05-29] MEDS: pantoprazole DR 40 mg Tablet PO (09:01)
[2022-05-29] MEDS: metoprolol tartrate 25 mg Tablet 12.5 MG PO ×2 (09:01→20:19)
[2022-05-29] MEDS: ferrous sulfate EC 325 mg Tablet PO ×2 (09:01→16:44)
[2022-05-29] MEDS: predniSONE 10 mg Tablet 5 MG PO (09:01)
[2022-05-29] MEDS: escitalopram 10 mg Tablet PO (09:02)
[2022-05-29] MEDS: collagenase oint 30 gm 1 APPLIC TOPICAL (09:02)
--- NOTE | 2022-05-29 11:30 | PC.NURSE ---
Sherman cath inserted per sterile technique Xs one attempt. Pt tolerated well. Sherman to BSD.
--- NOTE | 2022-05-29 12:27 | XRR_ITS ---
PROCEDURE INFORMATION: Exam: XR Chest Exam date and time: 05/29/2022 12:36 PM Age: 72 years old Clinical indication: Shortness of breath; Additional info: New oxygen requirement TECHNIQUE: Imaging protocol: Radiologic exam of the chest. Views: 1 view. COMPARISON: CR XR chest 1V portable [id number] 05/13/2022 6:20 AM FINDINGS: Lungs: There is right basilar opacity consistent with right lower lobe consolidation or atelectasis with right pleural effusion. Pleural spaces: No pneumothorax. Heart/Mediastinum: Unremarkable. No cardiomegaly. Bones/joints: Unremarkable. XR/XR chest 1V portable [id number] IMPRESSION: Right basilar opacification consistent with lower lobe consolidation/atelectasis and small effusion.
--- NOTE | 2022-05-29 12:44 | P.PN_ITS ---
Subjective Subjective: Nursing reports patient has had more shortness of breath and a new oxygen requirement since this morning. States that she did fine overnight, however this morning has been having more difficulty breathing. She is currently on 5 L nasal cannula/mask. She denies any chest pain or abdominal pain. Nursing reports that the majority of her pain is when she stands up to walk. Vitals/I&O/Wt Last Vital Signs Temp 97.8 F 05/29/22 08:00 Pulse 81 05/29/22 08:40 Resp 18 05/29/22 08:36 BP 157/78 05/29/22 08:00 Pulse Ox 91 05/29/22 08:37 O2 Del Method 05/29/22 08:37 O2 Flow Rate 5 05/29/22 08:37 05/28/22 05/29/22 05/29/22 22:59 06:59 14:59 Intake Total 300 / 1260 260 / 260 Output Total 0 / 0 Balance 300 / 1260 260 / 260 Weight last 48 hrs Weight 128 lb 6.4 oz Physical Exam Narrative: General: Cooperative patient in no apparent distress. Well developed. HEENT: Normocephalic, Atraumatic. External ears normal. Nasal passages patent without drainage. MMM. Heart: RRR. Resp: Crackles across the Left upper and lower lung bonds. Mild crackles on the Lung bases. Abd: Soft, non-tender. Non-distended. Extremities: 2+ LE edema. Skin: No rash or lesions on exposed areas. Urinary Catheter Management: Sherman: Cath Placed During This Visit: yes, but has since been removed by the nurse Reason for Continuing Indwelling Catheter: Accurate Measurement of Urinary Output in Critically Ill Patients Urinary Catheter Date of Insertion: 05/10/22 Urinary Catheter Time of Insertion: 17:13 Date Urinary Catheter Removed: 05/15/22 Time Urinary Catheter Discontinued: 15:00 Data 05/27/22 03:24 05/27/22 03:24 A&P Assessment and plan (1) Dyspnea: Qualifiers: Dyspnea type: acute respiratory distress Qualified Code(s): R06.03 - Acute respiratory distress (2) Acute and chronic respiratory failure with hypoxia: (3) Nicotine addiction: (4) Suicidal ideation: (5) Severe depression: (6) Acute alteration in mental status: (7) Metabolic encephalopathy: (8) Gram-negative bacteremia: (9) Transaminitis: Plan This is a 72-year-old white female with recent history of last and medical decline who presents reporting depression and anxiety and SI. Patient presents with new oxygen requirement this morning. She has been more short of breath with exertion. Currently on 5 L oxy mask. She has not had any chest pain. She does have lung crackles and lower extremity edema. We will arrange for a chest x-ray today. She normally receives p.o. Lasix 1 time a day. For now we will change this to IV every 12 [address] Sherman catheter at this time due to her difficulty transferring and walking without oxygen. We will start antibiotics if concern for pneumonia. Feel this is more related to fluid overload/CHF exacerbation. Her vitals are otherwise currently stable. Continue treatment for sacral decubitus ulcer. Continue Lexapro 10 mg daily along with Remeron at 15 mg at night. Continue Haldol to 1mg twice a day at this time, concern about some muscle stiffness which appears better since the change. This patient may require guardianship, not able to make reasonable medical decisions regarding her care despite being informed of risks and benefits of care. Family not able to manage her care at home. Occupational therapy diane huitron shows that patient remains an extremely poor candidate to return home independently given her inability to make good safe decisions (see detailed results of the evaluation) See Results of Tiffanie for further details. - Shows evidence of inability to live independently particularly safety issues and understanding danger. Currently waiting on acceptance to SNF. Case management will update and will arrange for discharge when this has been organized. Attestations Medical Necessity Statement*: Awaiting appropriate disposition planning and sacral ulcer management until suitable facility is determined, and evaluation for acute hypoxic respiratory failure. Coding Level of Care Code Acute Code for Chg Fwd Moderate MDM includes number and complexity of problems actively addressed during encounter, amount and/or complexity of data reviewed/ordered and described risk of complication, morbidity or mortality of management as documented Diagnoses Dyspnea R06.03 Dyspnea type: acute respiratory distress Acute and chronic respiratory failure with hypoxia J96.21 Nicotine addiction F17.200 Suicidal ideation R45.851 Severe depression F32.2 Acute alteration in mental status R41.82 Metabolic encephalopathy G93.41 Gram-negative bacteremia R78.81 Transaminitis R74.01
[2022-05-29] MEDS: FUROsemide 10 mg/mL SDV 4mL 40 MG IVP (13:23)
--- NOTE | 2022-05-29 14:07 | PC.SOCIAL ---
IMM update IMM updated with patient and son at bedside. Copy PG 2 provided. Verbalized an understanding. Initialled, dated, timed, and placed in chart.
--- NOTE | 2022-05-29 18:02 | PC.NURSE ---
No behaviors noted this shift. Alert and oriented, able to make needs known. No elopement attempts this shift. Call light in reach. Voices no c/o pain or discomfort at this time.
[2022-05-29] MEDS: mirtazapine 15 mg Tablet PO (20:20)
[2022-05-30] VITALS (13 sets, daily range): BP systolic 134–166; BP diastolic 57–84; PULSE 62–80; RESP 15–28; TEMP 36.5–37.1; O2SAT 90–100
[2022-05-30] MEDS: FUROsemide 10 mg/mL SDV 4mL 40 MG IVP (01:14)
[2022-05-30] MEDS: ipratropium 0.5 mg/2.5 mL Neb INHALATION ×4 (02:57→20:42)
[2022-05-30] MEDS: albuterol 2.5 mg/3 mL Neb INHALATION ×4 (02:57→20:41)
[2022-05-30] MEDS: dilTIAZem 60 mg Tablet 120 MG PO ×2 (08:37→17:56)
[2022-05-30] MEDS: nystatin 100,000 unit/mL UDC 5 mL 100000 UNIT PO ×2 (08:37→21:17)
[2022-05-30] MEDS: escitalopram 10 mg Tablet PO (08:37)
[2022-05-30] MEDS: metoprolol tartrate 25 mg Tablet 12.5 MG PO ×2 (08:38→21:20)
[2022-05-30] MEDS: ferrous sulfate EC 325 mg Tablet PO ×2 (08:38→17:56)
[2022-05-30] MEDS: predniSONE 10 mg Tablet 5 MG PO (08:38)
[2022-05-30] MEDS: pantoprazole DR 40 mg Tablet PO (08:38)
[2022-05-30] MEDS: lidocaine 5% Patch 1 PATCH TOPICAL ×2 (08:39→21:20)
[2022-05-30] MEDS: collagenase oint 30 gm 1 APPLIC TOPICAL (08:39)
[2022-05-30] MEDS: cefepime 1,000 MG in sodium chloride 0.9% (plus) 50 ML 100 MG IV (08:51)
[2022-05-30] MEDS: budesonide 0.5 mg/2 mL Neb 0.25 MG INHALATION ×2 (09:03→20:41)
[2022-05-30] MEDS: vancomycin 1,000 MG in sodium chloride 0.9% 250 ML 250 MG IV (09:30)
[2022-05-30 09:55] LABS: Basophils % 0.7 %; Eosinophils # 0.1 10^3/uL (0.0-0.8); Hematocrit 29.4 % (37.0-47.0); Hemoglobin 8.6 g/dL (11.5-15.3); Lymphocytes # 0.8 10^3/uL (0.8-4.8); Lymphocytes % 13.4 %; Mean Corpuscular HGB Conc 29.3 g/dL (30.0-36.0); Mean Corpuscular Hemoglobin 25.3 pg (28.0-34.0); Mean Corpuscular Volume 86.5 fl (81-99); Mean Platelet Volume 9.8 fL (7.4-10.4); Monocytes # 0.8 10^3/uL (0.2-0.9); Monocytes % 12.9 %; Neutrophils # 4.35 10^3/uL (1.8-7.7); Neutrophils % 70.7 %; Nucleated Red Blood Cells % 0 %; Platelet Count 245 10^3/cmm (130-400); Red Cell Distribution Width 15.1 % (12.1-15.1); White Blood Count 6.1 10^3/uL (4.0-10.0)
[2022-05-30 10:02] LABS: Alanine Aminotransferase 14 U/L (0-33); Albumin Level 2.8 g/dL (3.5-5.2); Alkaline Phosphatase 94 U/L (35-105); Anion Gap 13.5 (5-19); Aspartate Amino Transferase 15 U/L (0-32); Blood Urea Nitrogen 6 mg/dL (8-23); C Reactive Protein 62.2 mg/L (0.0-4.9); Calcium 8.4 mg/dL (8.5-10.5); Carbon Dioxide 31 mmol/L (22-29); Chloride 95 mmol/L (98-107); Globulin 3.2 g/dL (1.3-4.6); Glucose 128 mg/dL (65-115); Osmolality Calculated 283 mOsm/kg (285-295); Sodium 137 mmol/L (136-145); Total Bilirubin 0.3 mg/dL (0.15-1.2)
[2022-05-30 10:46] LABS: Potassium 2.5 mmol/L (3.5-5.1)
--- NOTE | 2022-05-30 11:12 | PC.NURSE ---
Critical potassium of 2.[address] Reese. New orders noted and processed.
[2022-05-30] MEDS: lidocaine 1% 5 ML in potassium chloride premix 100 ML 26.25 ML IV ×2 (12:28→17:55)
[2022-05-30 16:42] LABS: Adenovirus Not Detected (NOT DETECT); Chlamydia Pneumoniae Not Detected (NOT DETECT); Coronavirus 229E,HKU1,NL63,OC4 Not Detected (NOT DETECT); Human Metapneumovirus Not Detected (NOT DETECT); Human Rhinovirus/Enterovirus Not Detected (NOT DETECT); Influenza A Not Detected (NOT DETECT); Influenza A H1 Not Detected (NOT DETECT); Influenza A H1-2009 Not Detected (NOT DETECT); Influenza A H3 Not Detected (NOT DETECT); Influenza B Not Detected (NOT DETECT); Mycoplasma Pneumoniae Not Detected (NOT DETECT); Parainfluenza Virus Type 1 Not Detected (NOT DETECT); Parainfluenza Virus Type 2 Not Detected (NOT DETECT); Parainfluenza Virus Type 3 Not Detected (NOT DETECT); Parainfluenza Virus Type 4 Not Detected (NOT DETECT); Respiratory Syncytial Virus A Not Detected (NOT DETECT); Respiratory Syncytial Virus B Not Detected (NOT DETECT); SARS-COV-2 Not Detected (NOT DETECT)
[2022-05-30 16:52] LABS: Influenza A Not Detected (NOT DETECT); Influenza A H1 Not Detected (NOT DETECT); Influenza A H1-2009 Not Detected (NOT DETECT); Influenza A H3 Not Detected (NOT DETECT); Influenza B Not Detected (NOT DETECT); Results from Genmark
--- NOTE | 2022-05-30 17:27 | P.PN_ITS ---
Subjective Subjective: Says she feels some better today. Feels that her shortness of breath is not as bad. Has been able to decrease her oxygen requirement today. Denies chest pain. Vitals/I&O/Wt Last Vital Signs Temp 97.7 F 05/30/22 04:00 Pulse 66 05/30/22 16:22 Resp 22 H 05/30/22 16:22 BP 137/57 05/30/22 16:22 Pulse Ox 93 05/30/22 16:22 O2 Del Method 05/30/22 14:09 O2 Flow Rate 3 05/30/22 14:09 05/30/22 05/30/22 05/30/22 06:59 14:59 22:59 Intake Total 600 / 600 405 / 1005 Output Total 1300 / 3475 400 / 400 Balance -1300 / -2955 600 / 600 5 / 605 Physical Exam Narrative: General: Cooperative patient in no apparent distress. Well developed. HEENT: Normocephalic, Atraumatic. External ears normal. Nasal passages patent without drainage. MMM. Heart: RRR. Resp: Crackles across the Left upper and lower lung bonds. Mild crackles on the Lung bases. Abd: Soft, non-tender. Non-distended. Extremities: 2+ LE edema. Skin: No rash or lesions on exposed areas. Urinary Catheter Management: Sherman: Cath Placed During This Visit: yes, but has since been removed by the nurse Reason for Continuing Indwelling Catheter: Accurate Measurement of Urinary Output in Critically Ill Patients Urinary Catheter Date of Insertion: 05/10/22 Urinary Catheter Time of Insertion: 17:13 Date Urinary Catheter Removed: 05/15/22 Time Urinary Catheter Discontinued: 15:00 Data 05/30/22 09:19 05/30/22 09:19 A&P Assessment and plan (1) Dyspnea: Qualifiers: Dyspnea type: acute respiratory distress Qualified Code(s): R06.03 - Acute respiratory distress (2) Acute and chronic respiratory failure with hypoxia: (3) Nicotine addiction: (4) Suicidal ideation: (5) Severe depression: (6) Acute alteration in mental status: (7) Metabolic encephalopathy: (8) Gram-negative bacteremia: (9) Transaminitis: Plan This is a 72-year-old white female with recent history of last and medical decline who presents reporting depression and anxiety and SI. Less short of breath today. Oxygen down to 3L N/C. She has not had any chest pain. Will Discontinue Abx at this time. She has been afebrile. No other indications for PNA. CXR likely pleural effusion, respiratory status improved with diuresis. Flu/COVID negative today. Resume PO Lasix. CRP elevation, likely related to her sacral wound. I/O's. Continue treatment for sacral decubitus ulcer. Continue Lexapro 10 mg daily along with Remeron at 15 mg at night. Continue Haldol to 1mg twice a day at this time, concern about some muscle stiffness which appears better since the change. This patient may require guardianship, not able to make reasonable medical decisions regarding her care despite being informed of risks and benefits of care. Family not able to manage her care at home. Occupational therapy evaluation shows that patient remains an extremely poor candidate to return home independently given her inability to make good safe decisions (see detailed results of the evaluation) See Results of Tiffanie for further details. - Shows evidence of inability to live independently particularly safety issues and understanding danger. Currently waiting on acceptance to SNF. Case management will update and will arrange for discharge when this has been organized. Attestations Medical Necessity Statement*: Awaiting appropriate disposition planning and sacral ulcer management until suitable facility is determined. Coding Level of Care Code Acute Code for Chg Fwd Moderate MDM includes number and complexity of problems actively addressed during encounter, amount and/or complexity of data reviewed/ordered and described risk of complication, morbidity or mortality of management as documented Diagnoses Dyspnea R06.03 Dyspnea type: acute respiratory distress Acute and chronic respiratory failure with hypoxia J96.21 Nicotine addiction F17.200 Suicidal ideation R45.851 Severe depression F32.2 Acute alteration in mental status R41.82 Metabolic encephalopathy G93.41 Gram-negative bacteremia R78.81 Transaminitis R74.01
[2022-05-30] MEDS: acetaminophen 325 mg Tablet 650 MG PO (21:18)
[2022-05-30] MEDS: mirtazapine 15 mg Tablet PO (21:19)
[2022-05-31] VITALS (10 sets, daily range): BP systolic 133–166; BP diastolic 56–79; PULSE 66–107; RESP 16–32; TEMP 36.6–37.3; O2SAT 90–97
[2022-05-31] MEDS: ipratropium 0.5 mg/2.5 mL Neb INHALATION ×2 (02:10→08:48)
[2022-05-31] MEDS: albuterol 2.5 mg/3 mL Neb INHALATION ×2 (02:11→08:49)
[2022-05-31] MEDS: acetaminophen 325 mg Tablet 650 MG PO ×2 (04:54→20:28)
--- NOTE | 2022-05-31 06:58 | PC.NURSE ---
patient sitting up in chair, A&OX4, cooperative and pleasant, uses call light, able to make needs known, uneventful shift
[2022-05-31] MEDS: FUROsemide 40 mg Tablet PO (08:39)
[2022-05-31] MEDS: pantoprazole DR 40 mg Tablet PO (08:39)
[2022-05-31] MEDS: escitalopram 10 mg Tablet PO (08:39)
[2022-05-31] MEDS: predniSONE 10 mg Tablet 5 MG PO (08:39)
[2022-05-31] MEDS: lidocaine 5% Patch 1 PATCH TOPICAL (08:40)
[2022-05-31] MEDS: ferrous sulfate EC 325 mg Tablet PO ×2 (08:40→17:45)
[2022-05-31] MEDS: collagenase oint 30 gm 1 APPLIC TOPICAL (08:40)
[2022-05-31] MEDS: metoprolol tartrate 25 mg Tablet 12.5 MG PO (08:40)
[2022-05-31] MEDS: nystatin 100,000 unit/mL UDC 5 mL 100000 UNIT PO ×3 (08:41→17:45)
[2022-05-31] MEDS: polyethylene glycol 3350 Pkt 17 gm PO (08:42)
[2022-05-31] MEDS: budesonide 0.5 mg/2 mL Neb 0.25 MG INHALATION (08:49)
--- NOTE | 2022-05-31 12:15 | P.PN_ITS ---
Subjective Subjective: Seen this morning. Patient states she has no complaints at this time and feels well. SHe is awaiting rehab placement. Vitals/I&O/Wt Last Vital Signs Temp 98.0 F 05/31/22 08:00 Pulse 66 05/31/22 08:00 Resp 20 H 05/31/22 08:00 BP 139/56 05/31/22 08:00 Pulse Ox 97 05/31/22 08:00 O2 Del Method 05/31/22 08:00 O2 Flow Rate 3 05/31/22 08:00 05/30/22 05/31/22 05/31/22 22:59 06:59 14:59 Intake Total 810 / 1410 240 / 240 Output Total 550 / 550 150 / 700 Balance 260 / 860 -150 / 710 240 / 240 Physical Exam Narrative: General: Cooperative patient in no apparent distress. Well developed. HEENT: Normocephalic, Atraumatic. External ears normal. Heart: RRR. Resp: Clear to auscultation bilaterally with diminished sounds at bases. Abd: Soft, non-tender. Non-distended. Extremities: 1+ lower extremity edema Skin: No rash or lesions on exposed areas. Urinary Catheter Management: Sherman: Cath Placed During This Visit: yes, but has since been removed by the nurse Reason for Continuing Indwelling Catheter: Accurate Measurement of Urinary Output in Critically Ill Patients Urinary Catheter Date of Insertion: 05/10/22 Urinary Catheter Time of Insertion: 17:13 Date Urinary Catheter Removed: 05/15/22 Time Urinary Catheter Discontinued: 15:00 Data 05/30/22 09:19 05/30/22 09:19 A&P Assessment and plan (1) Dyspnea: Qualifiers: Dyspnea type: acute respiratory distress Qualified Code(s): R06.03 - Ac michelle respiratory distress (2) Unable to function independently: (3) Nicotine addiction: (4) Suicidal ideation: (5) Severe depression: (6) Acute CHF: (7) Chronic respiratory failure with hypoxia: (8) Chronic obstructive pulmonary disease: (9) DVT (deep venous thrombosis): Plan #Suicidal ideation, anxiety, depression #Altered mental status on admission/metabolic encephalopathy?resolved #Gram-negative bacteremia, E. coli?resolved #COPD, chronically 5 L of oxygen?at baseline today #Chronic DVT, anticoagulation with Eliquis #Atrial fibrillation #Transaminitis #Nicotine dependence #Dyspnea on exertion, secondary to chronic congestive diastolic CHF?well compensated #Sacral decubitus ulcer #Chronic steroid use #Hypokalemia?repleted yesterday. ? Patient initially was admitted for left-sided abdominal pain recurrent falls and finding of left anterior inferior iliac spine fracture. She was discharged home and returned to the hospital due to concerns of progressive weakness unable to get out of bed severe depression and suicidal statements. She also had worsening hypoxia and on presentation had Enterra rhinovirus infection and lower extremity edema present. Troponins were 396 was also hyponatremic had altered mental status lethargic moderately confused and was found to have an incidental finding of 3.8 cm abdominal aortic aneurysm with small iliopsoas hematoma not present on prior imaging. She was also found to have E. coli bacteremia of unclear source perhaps GI translocation due to enteroviral illness. She has been treated with ceftriaxone for 10 days for that. IV antibiotic course is completed already. Eliquis was discontinued due to retroperitoneal hematomas. Hemoglobin remained stable over several days and repeat CAT scan did not show any enlargement of hematoma. She was seen by psychiatry and her medications were adjusted and she has not had suicidal ideation for some time now. Encephalopathy has resolved. She is awake alert oriented x3 much more active. Sacral wound is being treated with Santyl. As per discussion with psychiatry and further assessments as per [place] by OT she is unable to function independently on a number of categories including her personal safety and health. ? Patient is awaiting placement to nursing facility at this time ? E. coli bacteremia?treatment has been completed ? Not in any COPD exacerbation at this time ? Eliquis has been stopped for now. She is to follow-up outpatient with her primary care doctor to recheck hemoglobin and decide to restart at a later time. ? Lungs are clear to auscultation today. Oxygen is down to 3 L nasal cannula. Denies chest pain or shortness of breath. I will cut down her Lasix down to Lasix 40 oral daily ? Flu COVID is negative -Continue Lexapro 10 daily along with Remeron 15 at night. ? Haldol has been discontinued. -Transaminitis has resolved ? Continue prednisone 5 daily -Recheck labs in AM. DNR/DNI Diet: Cardiac diet Attestations Medical Necessity Statement*: pending placement Other Coding Information Focused coding review requested Diagnoses Dyspnea R06.03 Dyspnea type: acute respiratory distress Unable to function independently Z78.9 Nicotine addiction F17.200 Suicidal ideation R45.851 Severe depression F32.2 Acute CHF I50.9 Chronic respiratory failure with hypoxia J96.11 Chronic obstructive pulmonary disease J44.9 DVT (deep venous thrombosis) I82.409
--- NOTE | 2022-05-31 12:27 | PC.CHAP ---
Pastoral Care Encounter/Spiritual Assessment Type of Contact [] Declined automatic coin machine mechanic visit [] Patient/Family/Request visit [] Outpatient visit [] Follow-up visit [] Physician referral [] Code/Alert [x] Routine visit [] Staff referral [] Actively dying [] Patient sleeping [x] Family support [] [] Out of room [] Palliative care [] [] Receiving care in room [] Pre-surgical visit [] Trauma [] Long length of stay [] ICU visit [] Other: Relational/Emotional Strength [x] Patient feels connected with others/family/visitors/staff [] Distress [] Loneliness/isolation [] Abandonment Spirituality of Patient [x] Person of [place] [] Attends Judaism of their [place] [x] Believes in Prayer [] Reads Bible or Islam materials [] There are Spiritual issues to be addressed Paper Pattern Folder Interventions [x] Prayer [x] Active listening [] Non-anxious presence [] Spiritual/emotional support [] Crisis/trauma care [] Spiritual counseling [] Bereavement support [] Provided bereavement packet [] Provided Bible/devotional materials [] Provided toy/stuffed animal, coloring book to patient or family member [] Provided Communion [] Anointing/[place] [] Salvation [x] Completed spiritual assessment [] Other: Impact on Illness or Injury [] Angry [] Fearful [] Anxious [] Often cries [] Exhaustion [] Unable to work [] Unable to attend christian [] Unable to walk/stand [] Unable to read [] Unable to drive [] Unable to eat/drink [] Unable to sleep [] Unable to be with family [] Patient intubated [] Other: Summary patient confused but did understand praying Time spent with patient 10 min
[2022-05-31] MEDS: mirtazapine 15 mg Tablet PO (20:26)
--- NOTE | 2022-05-31 22:30 | PC.NURSE ---
Pt arrived from [facility] via w/c with staff at side. Pt calm and cooperative at this time.
[2022-05-31] MEDS: TRAMadol 50 mg Tablet PO (22:52)
[2022-06-01] VITALS (14 sets, daily range): BP systolic 135–196; BP diastolic 70–97; PULSE 64–123; RESP 15–18; TEMP 36.3–36.9; O2SAT 90–99
[2022-06-01] MEDS: acetaminophen 325 mg Tablet 650 MG PO ×2 (02:26→17:26)
[2022-06-01] MEDS: albuterol 2.5 mg/3 mL Neb INHALATION (03:20)
[2022-06-01 05:27] LABS: Basophils % 0.6 %; Eosinophils # 0.2 10^3/uL (0.0-0.8); Eosinophils % 4.2 %; Hematocrit 32.8 % (37.0-47.0); Hemoglobin 9.8 g/dL (11.5-15.3); Lymphocytes # 1.1 10^3/uL (0.8-4.8); Lymphocytes % 22.4 %; Mean Corpuscular HGB Conc 29.9 g/dL (30.0-36.0); Mean Corpuscular Hemoglobin 25.8 pg (28.0-34.0); Mean Corpuscular Volume 86.3 fl (81-99); Mean Platelet Volume 9.4 fL (7.4-10.4); Monocytes # 0.8 10^3/uL (0.2-0.9); Neutrophils # 2.79 10^3/uL (1.8-7.7); Neutrophils % 56.4 %; Nucleated Red Blood Cells % 0 %; Platelet Count 252 10^3/cmm (130-400); Red Cell Distribution Width 15.1 % (12.1-15.1)
[2022-06-01 05:47] LABS: Anion Gap 12.2 (5-19); Blood Urea Nitrogen 9 mg/dL (8-23); Calcium 8.5 mg/dL (8.5-10.5); Carbon Dioxide 32 mmol/L (22-29); Chloride 100 mmol/L (98-107); Glucose 83 mg/dL (65-115); Osmolality Calculated 290 mOsm/kg (285-295); Potassium 3.2 mmol/L (3.5-5.1); Sodium 141 mmol/L (136-145)
[2022-06-01] MEDS: potassium chloride ER 20 mEq Tablet 40 MEQ PO (09:21)
[2022-06-01] MEDS: predniSONE 10 mg Tablet 5 MG PO (09:22)
[2022-06-01] MEDS: escitalopram 10 mg Tablet PO (09:22)
[2022-06-01] MEDS: nystatin 100,000 unit/mL UDC 5 mL 100000 UNIT PO ×4 (09:23→20:46)
[2022-06-01] MEDS: pantoprazole DR 40 mg Tablet PO (09:23)
[2022-06-01] MEDS: lidocaine 5% Patch 1 PATCH TOPICAL ×2 (09:24→20:46)
[2022-06-01] MEDS: FUROsemide 40 mg Tablet PO (09:25)
[2022-06-01] MEDS: collagenase oint 30 gm 1 APPLIC TOPICAL (09:26)
[2022-06-01] MEDS: ferrous sulfate EC 325 mg Tablet PO ×2 (09:26→17:26)
--- NOTE | 2022-06-01 11:52 | XR_ITS ---
WS: [id number] Portable AP upright chest, 06/01/2022 Clinical Data: hypoxia Comparison: Portable chest, 05/29/2022 Findings: The right basilar opacity which probably represents atelectasis, pneumonia and/or effusion remains the same. The heart is not enlarged. There is no pneumothorax. The aortic arch and descending thoracic aorta show calcification and tortuosity. XR/XR chest 1V portable [id number] Impression: 1. No change in right basilar opacity. 2. Atherosclerosis.
--- NOTE | 2022-06-01 11:52 | P.PN_ITS ---
Subjective Subjective: seen today resting comfortably On 5 L baseline oxygen at this time. Sacral wound is being treated with Santyl Says she feels good but will require some help to sit up in bed so I can listen to her back. Vitals/I&O/Wt Last Vital Signs Temp 97.5 F L 06/01/22 07:48 Pulse 80 06/01/22 10:22 Resp 18 06/01/22 10:22 BP 172/84 06/01/22 07:48 Pulse Ox 92 06/01/22 10:23 O2 Del Method 06/01/22 10:23 O2 Flow Rate 5 06/01/22 10:23 05/31/22 06/01/22 06/01/22 22:59 06:59 14:59 Intake Total 365 / 605 240 / 240 Output Total 900 / 2900 1100 / 1100 Balance 365 / -1395 -900 / -2295 -860 / -860 Physical Exam Narrative: General: Cooperative patient in no apparent distress. Well developed. HEENT: Normocephalic, Atraumatic. External ears normal. Heart: RRR. Resp: Clear to auscultation bilaterally with diminished sounds at bases. Mild Rales at right base Abd: Soft, non-tender. Non-distended. Extremities: 1+ lower extremity edema Skin: No rash or lesions on exposed areas. Urinary Catheter Management: [place]: Cath Placed During This Visit: yes, but has since been removed by the nurse Reason for Continuing Indwelling Catheter: Accurate Measurement of Urinary Output in Critically Ill Patients Urinary Catheter Date of Insertion: 05/10/22 Urinary Catheter Time of Insertion: 17:13 Date Urinary Catheter Removed: 05/15/22 Time Urinary Catheter Discontinued: 15:00 Data 06/01/22 05:11 06/01/22 05:11 A&P Assessment and plan (1) Dyspnea: Qualifiers: Dyspnea type: acute respiratory distress Qualified Code(s): R06.03 - Acute respiratory distress (2) Unable to function independently: (3) Nicotine addiction: (4) Suicidal ideation: (5) Severe depression: (6) Acute CHF: (7) Chronic respiratory failure with hypoxia: (8) Chronic obstructive pulmonary disease: (9) DVT (deep venous thrombosis): Plan #Suicidal ideation, anxiety, depression #Altered mental status on admission/metabolic encephalopathy?resolved #Gram-negative bacteremia, E. coli?resolved #COPD, chronically 5 L of oxygen?at baseline today #Chronic DVT, anticoagulation with Eliquis #Atrial fibrillation #Transaminitis #Nicotine dependence #Dyspnea on exertion, secondary to chronic congestive diastolic CHF?well compensated #Sacral decubitus ulcer #Chronic steroid use #Hypokalemia?repleted yesterday. #Moderate pulmonary hypertension ? Patient initially was admitted for left-sided abdominal pain recurrent falls and finding of left anterior inferior iliac spine fracture. She was discharged home and returned to the hospital due to concerns of progressive weakness unable to get out of bed severe depression and suicidal statements. She also had worsening hypoxia and on presentation had Enterra rhinovirus infection and lower extremity edema present. Troponins were 396 was also hyponatremic had altered mental status lethargic moderately confused and was found to have an incidental finding of 3.8 cm abdominal aortic aneurysm with small iliopsoas hematoma not present on prior imaging. She was also found to have E. coli bacteremia of unclear source perhaps GI translocation due to enteroviral illness. She has been treated with ceftriaxone for 10 days for that. IV antibiotic course is completed already. Eliquis was discontinued due to retroperitoneal hematomas. Hemoglobin remained stable over several days and repeat CAT scan did not show any enlargement of hematoma. She was seen by psychiatry and her medications were adjusted and she has not had suicidal ideation for some time now. Encephalopathy has resolved. She is awake alert oriented x3 much more active. Sacral wound is being treated with Santyl. As per discussion with psychiatry and further assessments as per [place] by OT she is unable to function independently on a number of categories including her personal safety and health. ? Patient is awaiting placement to nursing facility at this time ? E. coli bacteremia?treatment has been completed ? Not in any COPD exacerbation at this time ? Eliquis has been stopped for now. She is to follow-up outpatient with her primary care doctor to recheck hemoglobin and decide to restart at a later time. ? Continue baseline 5 L nasal cannula. ? Flu COVID is negative -Continue Lexapro 10 daily along with Remeron 15 at night. ? Haldol has been discontinued. -Transaminitis has resolved ? Continue prednisone 5 daily -We will place on Solu-Medrol 40 every 8 hours today and discharge patient on oral prednisone. She did have some desaturation episodes yesterday when she worked with physical therapy and required more than 3 L nasal cannula. She was on 3 L for last few days however required more than that on ambulation yesterda y. Patient does have moderate pulmonary hypertension and I believe she should be on her baseline 5 L nasal cannula that she is chronically on. She is much more comfortable on that. I do not have a very strong suspicion of COPD exacerbation however would like to do a short course of prednisone to see if there is any improvement. ? Patient is awaiting placement in nursing facility at this time. She is quite deconditioned and weak and would definitely benefit from rehab. DNR/DNI Diet: Cardiac diet Attestations Medical Necessity Statement*: Pending placement of facility. Diagnoses Dyspnea R06.03 Dyspnea type: acute respiratory distress Unable to function independently Z78.9 Nicotine addiction F17.200 Suicidal ideation R45.851 Severe depression F32.2 Acute CHF I50.9 Chronic respiratory failure with hypoxia J96.11 Chronic obstructive pulmonary disease J44.9 DVT (deep venous thrombosis) I82.409
[2022-06-01] MEDS: TRAMadol 50 mg Tablet PO (20:45)
[2022-06-01] MEDS: mirtazapine 15 mg Tablet PO (20:47)
[2022-06-02 03:43] VITALS: BP 155/84; PULSE 97; RESP 16; TEMP 36.8; O2SAT 94
[2022-06-02 06:43] VITALS: PULSE 121
[2022-06-02] MEDS: acetaminophen 325 mg Tablet 650 MG PO (06:48)
[2022-06-02 08:00] VITALS: BP 166/98; PULSE 105; RESP 18; TEMP 36.3; O2SAT 95
[2022-06-02 09:09] VITALS: PULSE 106; RESP 18; O2SAT 97
[2022-06-02] MEDS: albuterol 2.5 mg/3 mL Neb INHALATION (09:09)
[2022-06-02 09:15] VITALS: PULSE 97
[2022-06-02] MEDS: FUROsemide 40 mg Tablet PO (09:25)
[2022-06-02] MEDS: escitalopram 10 mg Tablet PO (09:25)
[2022-06-02] MEDS: predniSONE 10 mg Tablet 5 MG PO (09:25)
[2022-06-02] MEDS: pantoprazole DR 40 mg Tablet PO (09:25)
[2022-06-02] MEDS: ferrous sulfate EC 325 mg Tablet PO (09:26)
[2022-06-02] MEDS: nystatin 100,000 unit/mL UDC 5 mL 100000 UNIT PO (09:28)
[2022-06-02] MEDS: polyethylene glycol 3350 Pkt 17 gm PO (09:30)
--- NOTE | 2022-06-02 09:45 | P.DS_ITS ---
Discharge Providers Date of Admission: 05/10/22 21:58 Date of Discharge: June 02, 2022 Attending Provider at Admission: Anoop Larkin Attending Provider at Discharge: Rafael Rich MD Primary Care Provider: Thompson Zuluaga MD Diagnoses at Discharge Discharge Diagnosis (1) Dyspnea: Status: Resolved Qualifiers: Dyspnea type: acute respiratory distress Qualified Code(s): R06.03 - Acute respiratory distress (2) Unable to function independently: Status: Acute (3) Nicotine addiction: Status: Acute (4) Suicidal ideation: Status: Acute (5) Severe depression: Status: Acute (6) Acute CHF: Status: Acute (7) Chronic respiratory failure with hypoxia: Status: Acute (8) Chronic obstructive pulmonary disease: Status: Acute (9) DVT (deep venous thrombosis): Status: Acute Reason for Visit Reason for Visit: SOB, cant walk, SI Brief History: As per Dr. Larkin Pleasant 72-year-old lady with advanced COPD, currently on 5 L of oxygen, also on 5 mg prednisone, with history of DVT, on anticoagulation with 2.5 mg Eliquis twice daily, history of atrial fibrillation, additionally history of radiation therapy due to suspected lung cancer nodule, without suspicious nodules on repeat recent imaging, moderate aortic stenosis, smoking addiction, remote history of left femoral fracture and repair, had a visit to ER on 05/05 due to left hip pain with finding of left anterior iliac spine fracture which was suspected old avulsion injury from osteopenia, however, since returning home has persistently been weak, since then pretty much has not gotten out of bed, has had poor appetite, additionally developing lower extremity edema, worsening dyspnea, also for a while has been having worsening and severe depression with recurrent suicidal ideation.? As per family she has been making confused statements, with on and off lucidity. She appears generally weak, falls asleep easily which also has been the case over the last week or so.? She is able to tell me she is in the hospital, tells me the year is 1922.? She tells me that she is feeling hungry.? She and family deny her having any headache, has not had any photophobia, no fevers.? Tells me that she feels weak.? She feels like she has not eaten in 3 days, although per family she has eaten in the last few days but certainly her oral intake was meager. In ER she is found to have slightly worse hypoxia than usual requiring 6 L of oxygen.? With findings suspicious of acute congestive heart failure, additionally noted to have leukocytosis 12.4, did come back positive on viral panel for entero-/rhinovirus.? Negative COVID PCR.? Troponin baseline elevated to 396.? EKG with atrial fibrillation.? Repeat EKG with moderate T wave abnormality.? Repeat troponin decreasing down to 354.1.? She denies any chest pain and this is an incidental finding.? Family deny chest pain or pressure in recent days.? NT proBNP is 4923.? Creatinine 0.6, BUN 31.? Sodium is 123.? Urinalysis unremarkable.? Urine tox screen positive for benzodiazepines, opiates both of which are among her prescribed medications. Imaging in ER with CT head shows diffuse chronic white matter microvascular changes and indistinct lacunar infarcts of both basal ganglia of indeterminate age which could be further assessed on MRI. Chest x-ray was performed as well. CT chest abdomen and pelvis without PE and major pulmonary vascular branches.? COPD upper lobe emphysematous changes and scattered subsegmental atelectasis mid to lower lung zones.? Mild cardiomegaly with diffuse calcification of coronary arteries. CT abdomen is positive for small left iliopsoas hematoma possibly spontaneous in origin.? Diffuse atherosclerotic changes abdominal aorta with 3.8 cm mid abdominal aortic aneurysm.? Retroverted uterus with mild expansion of the endometrial cavity that should be further assessed on follow-up nonemergent pelvic ultrasound exam for possible endometrial pathology. Blood cultures were collected.? She received empiric antibiotics with Zosyn, vancomycin, doxycycline. Dose of Solu-Medrol.? Breathing treatment. She and family deny any recent falls or any prolonged time spent on hard surfaces. With regards to suicidal ideation she states she has been contemplating this for a while.? She tells me she has no reason to live.? She thinks that if she were to end her life she would either take an overdose of her medications or use her pistol. As per her son and [id number] as discussed together with the patient she also has previously expressed and documented wishes of limited goals of care overall, with DNR status, no aggressive interventions but would be agreeable to medical treatments occluding antibiotics, transfusion if needed, etc. Hospital Course Hospital Course 72-year-old lady with history of advanced COPD normally on 5 L of oxygen, chronic prednisone 5 mg, history of chronic DVT, anticoagulation with Eliquis, A-fib, additional history of radiation therapy due to suspected cancerous lung nodule, without suspicious nodules on repeat imaging, moderate aortic stenosis, smoking addiction, other comorbidities has had recent significant functional decline at home especially in the days preceding admission, a visit to ER prior to admit with sudden left side abdomen/pelvic pain, recurrent falls, with finding of left anterior inferior iliac spine fracture. Return to the hospital for this admit due to concerns of progressive weakness, unable to get out from bed, as well as severe depression and suicidal statements. Also with worsening hypoxia, on presentation with enterorhinovirus infection also lower extremity edema, CHF exacerbation, as well as rather elevated troponin 396, hyponatremia, acute encephalopathy, lethargic, moderately confused, with incidental finding of 3.8 cm abdominal aortic aneurysm but also new small left iliopsoas hematoma not present on prior imaging, and possibly spontaneous in originon anticoagulation. Subsequently also with finding of E. coli bacteremia of unclear source, perhaps GI translocation due to enteroviral illness, s/p treatment with ceftriaxone for 10 days. She has been showing gradual improvement during admission. She has completed course of IV antibiotic. Hemoglobin remained relatively stable. Eliquis has been discontinued due to retroperitoneal hematomas. Repeat Hb has remained stable ~9 over several days. Repeat CAT scan did not show any e nlargement of the hematoma. She was seen by psychiatry, her medications were adjusted and depression has been gradually improving. She has not had suicidal ideation for some time now. Encephalopathy overall resolved. She is currently alert , awake and oriented x 3, converses appropriately. She has been gradually getting stronger, much more interactive, most of the time in better spirits. Sitting up in chair. Working with therapy. Chronic/preadmission pressure wound on her sacrum is treated with some Santyl dressing changes. Showing improvement. She is being transitioned to a senior living facility for continued therapy, . As per discussions with psychiatry, further assessments, as well as assessment on ISSAC by OT she is unable to function independently on a number of categories including her personal safety and health. Patient did have some desaturation episodes towards close to end of her hospital stay. She was placed on Solu-Medrol every 8 hours and discharged home on oral prednisone. Patient was on her baseline 5 L oxygen at discharge and saturating 90%. Physical Exam Narrative: General: Cooperative patient in no apparent distress. Well developed. HEENT: Normocephalic, Atraumatic. External ears normal. Heart: RRR. Resp: Clear to auscultation bilaterally with diminished sounds at bases. Mild Rales at right base Abd: Soft, non-tender. Non-distended. Extremities: 1+ lower extremity edema Skin: No rash or lesions on exposed areas. Urinary Catheter Management: Sherman: Cath Placed During This Visit: yes, but has since been removed by the nurse Reason for Continuing Indwelling Catheter: Accurate Measurement of Urinary Output in Critically Ill Patients Urinary Catheter Date of Insertion: 05/10/22 Urinary Catheter Time of Insertion: 17:13 Date Urinary Catheter Removed: 05/15/22 Time Urinary Catheter Discontinued: 15:00 Discharge Data Studies Completed and Pending Completed Studies During Hospitalization Category Date Time Status CT abdomen pelvis w con* [id number] Routine Cat Scan 05/15/22 13:[address] head wo con* [id number] Stat Cat Scan 05/10/22 15:[address] abdomen pelvis [CT angio chest w abd pel w Cat Scan 05/10/22 15:02 Completed con] Stat CXRP [XR chest 1V portable [id number]] Routine Exams 05/29/22 12:27 Completed XR chest 1V portable [id number] Routine Exams 05/13/22 06:00 Completed XR chest 1V portable [id number] Stat Exams 05/10/22 14:14 Completed XR chest 1V portable [id number] Stat Exams 06/01/22 11:52 [place] [id number] Stat Ultrasound 05/10/22 21:58 Completed CV. echo complete* [id number] Routine Ultrasound 05/10/22 21:58 Completed Radiology Impressions Chest/Abdomen/Pelvis CT 05/10/22 15:02 IMPRESSION: 1. Technically limited but negative CT angiogram of the chest. No evidence of acute pulmonary embolism to major branches of the pulmonary vascular tree. 2. COPD with upper lobe emphysematous changes and scattered subsegmental atelectasis mid to lower lung zones. 3. Mild cardiomegaly with diffuse calcification of coronary arteries. IMPRESSION: 1. Small left ilopsoas hematoma possibly spontaneous in origin. Please correlate with appropriate coagulation factors. 2. Diffuse atherosclerotic changes abdominal aorta with 3.8 cm mid abdominal aortic aneurysm. 3. Retroverted uterus with mild expansion of the endometrial cavity that should be further assessed on follow-up nonemergent pelvic ultrasound exam for possible endometrial pathology. Head CT 05/10/22 15:02 IMPRESSION: Diffuse, chronic white matter microvascular changes and indistinct lacunar infarcts both basal ganglia of indeterminate age which could be further assessed on MRI examination clinically warranted. Abdomen/Pelvis CT 05/15/22 13:58 IMPRESSION: 1. Stable small iliopsoas hematoma within the left iliac fossa. 2. 3.8 cm calcified abdominal aortic aneurysm unchanged. 3. Additional chronic findings as above. Chest X-Ray 06/01/22 11:52 Impression: 1. No change in right basilar opacity. 2. Atherosclerosis. Laboratory Results WBC 5.0 10^3/uL (4.0-10.0) 06/01/22 05:11 RBC 3.80 10^6/uL (4.1-5.3) L 06/01/22 05:11 Hgb 9.8 g/dL (11.5-15.3) L 06/01/22 05:11 Hct 32.8 % (37.0-47.0) L 06/01/22 05:11 MCV 86.3 fl (81-99) 06/01/22 05:11 MCH 25.8 pg (28.0-34.0) L 06/01/22 05:11 MCHC 29.9 g/dL (30.0-36.0) L 06/01/22 05:11 RDW 15.1 % (12.1-15.1) 06/01/22 05:11 Plt Count 252 10^3/cmm (130-400) 06/01/22 05:11 MPV 9.4 fL (7.4-10.4) 06/01/22 05:11 Neut % (Auto) 56.4 % 06/01/22 05:11 Lymph % (Auto) 22.4 % 06/01/22 05:11 [place] % (Auto) 16.0 % 06/01/22 05:11 Eos % (Auto) 4.2 % 06/01/22 05:11 Baso % (Auto) 0.6 % 06/01/22 05:11 Neut # (Auto) 2.79 10^3/uL (1.8-7.7) 06/01/22 05:11 Lymph # (Auto) 1.1 10^3/uL (0.8-4.8) 06/01/22 05:11 Clarion # (Auto) 0.8 10^3/uL (0.2-0.9) 06/01/22 05:11 Eos # (Auto) 0.2 10^3/uL (0.0-0.8) 06/01/22 05:11 Baso # (Auto) 0.0 10^3/uL (0.0-0.1) 06/01/22 05:11 Nucleated RBC % (auto) 0 % 06/01/22 05:11 Nucleated RBCs # 0.0 /100WBC 06/01/22 05:11 ESR 50 mm/hr (0-15) H 05/15/22 03:20 Specimen Type Arterial 05/10/22 14:20 Sample Site Radial, left 05/10/22 14:20 ABG pH 7.42 (7.35-7.45) 05/10/22 14:20 ABG pCO2 36.5 mmHg (35-45) 05/10/22 14:20 ABG pO2 76.3 mmHg (80.0-100.0) L 05/10/22 14:20 ABG HCO3 23.6 mmol/L (22-26) 05/10/22 14:20 ABG O2 Saturation 96.4 05/10/22 14:20 ABG Base Excess -0.6 mmol/L (-2.0-2.0) 05/10/22 14:20 Duncan Test Pos 05/10/22 14:20 A-a O2 Gradient 3.5 mmHg (5-10) L 05/10/22 14:20 Hematocrit 32.0 % (37-47) L 05/10/22 14:20 Hgb O2 Saturation 93.7 % (95-100) L 05/10/22 14:20 Carboxyhemoglobin 2.4 %THgb (0.4-20.1) 05/10/22 14:20 Methemoglobin 0.4 % (0.4-1.5) 05/10/22 14:20 Total Hemoglobin 10.4 g/dL (12-16) L 05/10/22 14:20 Sodium 129.0 mmol/L (131-143) L 05/10/22 14:20 Potassium 4.3 mmol/L (3.5-5.0) 05/10/22 14:20 Glucose 141.0 mg/dL (70-115) H 05/10/22 14:20 Ionized Calcium 1.1 mmol/L (1.1-1.4) 05/10/22 14:20 O2 Delivery Device Nrb 05/10/22 14:20 O2 Liters/Min 15.0 % 05/10/22 14:20 Peer Financial Counselor ID Walci 05/10/22 14:20 Sodium 141 mmol/L (136-145) 06/01/22 05:11 Potassium 3.2 mmol/L (3.5-5.1) L 06/01/22 05:11 Chloride 100 mmol/L (98-107) 06/01/22 05:11 Carbon Dioxide 32 mmol/L (22-29) H 06/01/22 05:11 Anion Gap 12.2 (5-19) 06/01/22 05:11 BUN 9 mg/dL (8-23) 06/01/22 05:11 Creatinine 0.4 mg/dL (0.5-0.9) L 06/01/22 05:11 GFR Calculation Not Reportable 06/01/22 05:11 Glucose 83 mg/dL (65-115) 06/01/22 05:11 POC Glucose 129 mg/dL (70-110) H 05/28/22 11:20 Calculated Osmolality 290 mOsm/kg (285-295) 06/01/22 05:11 Lactate 2.1 mmol/L (0.5-2.2) 05/10/22 14:10 Calcium 8.5 mg/dL (8.5-10.5) 06/01/22 05:11 Phosphorus 2.8 mg/dL (2.5-4.5) 05/10/22 14:10 Magnesium 2.0 mg/dL (1.7-2.3) 06/01/22 05:11 Iron 15 ug/dL (37-145) L 05/15/22 03:20 TIBC 213 mcg/dl 05/15/22 03:20 % Saturation 7.0 % (20-50) L 05/15/22 03:20 Unsat Iron Binding 198 ug/dL (112-347) 05/15/22 03:20 Ferritin 129 ng/mL (15-150) 05/15/22 03:20 Total Bilirubin 0.3 mg/dL (0.15-1.2) 05/30/22 09:19 GGT 56 U/L (5-36) H 05/15/22 14:07 AST 15 U/L (0-32) 05/30/22 09:19 ALT 14 U/L (0-33) 05/30/22 09:19 Alkaline Phosphatase 94 U/L (35-105) 05/30/22 09:19 Ammonia 19 umol/L (11-51) 05/16/22 04:28 Creatine Kinase 371 U/L (26-192) H* 05/12/22 04:24 Troponin T Baseline 396 ng/L (0-10) H* 05/10/22 14:10 Troponin T 120 Minute 354.1 ng/L (0-10) H 05/10/22 16:12 Delta Troponin T -41.9 ABS# (0-10) L 05/10/22 16:12 Troponin T Hi Sens 6Hr 279.7 ng/L (0-10) H 05/10/22 20:15 Troponin T Hi Sens 6Hr Delta -116.3 ng/L (0-12) L 05/10/22 20:15 C-Reactive Protein 62.2 mg/L (0.0-4.9) H 05/30/22 09:19 NT-Pro-B Natriuret Pep 4923 pg/mL (0-125) H 05/10/22 14:10 Total Protein 6.0 g/dL (6.6-8.7) L 05/30/22 09:19 Albumin 2.8 g/dL (3.5-5.2) L 05/30/22 09:19 Globulin 3.2 g/dL (1.3-4.6) 05/30/22 09:19 Lipase 21 U/L (13-60) 05/15/22 14:07 Procalcitonin 0.30 ng/mL (0-0.5) 05/16/22 04:28 TSH 2.50 uIU/mL (0.27-4.20) 05/10/22 14:10 Urine Color Dark yellow (Yellow) 05/10/22 15:37 Urine Appearance Clear (CLEAR) 05/10/22 15:37 Urine pH 5 (5-7) 05/10/22 15:37 Ur Specific Atkinson 1.010 (1.005-1.030) 05/10/22 15:37 Urine Protein Neg (Negative) 05/10/22 15:37 Urine Glucose (UA) Norm (Normal) 05/10/22 15:37 Urine Ketones Negative (Negative) 05/10/22 15:37 Urine Blood Neg (Negative) 05/10/22 15:37 Urine Nitrate Negative (Negative) 05/10/22 15:37 Urine Bilirubin 1+ (Negative) H 05/10/22 15:37 Urine Urobilinogen 1 mg/dL (Negative) H 05/10/22 15:37 Ur Leukocyte Esterase Negative (Negative) 05/10/22 15:37 Nasal Influ A H1 2008 PCR Not detected (NOT DETECT) 05/30/22 12:30 Vancomycin Trough 14.5 ug/mL (10-15) 05/16/22 04:28 Salicylates < 0.3 mg/dL (3-10) L 05/10/22 14:10 Urine Opiates Screen Positive ng/mL (Negative) H 05/10/22 15:38 Acetaminophen < 5.0 ug/mL (10-30) L 05/10/22 14:10 Ur Barbiturates Screen Negative ng/mL (Negative) 05/10/22 15:38 Ur Phencyclidine Scrn Negative ng/mL (Negative) 05/10/22 15:38 Ur Amphetamines Screen Negative ng/mL (Negative) 05/10/22 15:38 U Benzodiazepines Scrn Positive ng/mL (Negative) H 05/10/22 15:38 Urine Cocaine Screen Negative ng/mL (Negative) 05/10/22 15:38 U Marijuana (THC) Screen Negative ng/mL (Negative) 05/10/22 15:38 Ethyl Alcohol < 10 mg/dL (0-10) 05/10/22 14:10 LOUIS Nuclear Membr Pat Nuclear, speckled A 05/15/22 09:28 [facility]IS IFA Animal Tis Ttr 1:80 titer H 05/15/22 09:28 L[facility]IS IFA Animal Tis Res Positive (NEGATIVE) A 05/15/22 09:28 RHONDA-1 Antibody <1.0 neg AI (<1.0 NEG) 05/15/22 09:28 SS-A Antibody <1.0 neg AI (<1.0 NEG) 05/15/22 09: SS-B Antibody <1.0 neg AI (<1.0 NEG) 05/15/22: Sm (Ramirez) Antibody <1.0 neg AI (<1.0 NEG) 05/15/22: BEAD WIRE INSULATOR Antibody <1.0 neg AI (<1.0 NEG) 05/15/22: Scl-70 Antibody <1.0 neg AI (<1.0 NEG) 05/15/22 09: Anti-ds DNA IgG (Crith) Negative (NEGATIVE) 05/15/22: Centromere B Antibody <1.0 neg AI (<1.0 NEG) 05/15/22: Thyroid Peroxidase Ab 1 IU/mL (<9) 05/15/22 09: Complement C3c 152 mg/dL (83-193) 05/15/22: Complement C4c 17 mg/dL (15-57) 05/15/22: CH50 Classical Pathway >60 U/mL (31-60) H 05/15/22 09:28 Coronavirus 229E (PCR) Not detected (NOT DETECT) 05/30/22 12:30 Hepatitis A IgM Ab Non-reactive (Nonreactive) 05/11/22 16:10 Hep Bs Antigen Non-reactive (Nonreactive) 05/11/22 16:10 Hep B Core IgM Ab Non-reactive (Nonreactive) 05/11/22 16:10 Hepatitis C Antibody Non-reactive (Nonreactive) 05/11/22 16:10 Human Metapneumovir PCR Not detected (NOT DETECT) 05/10/22 16:49 Influenza A (H1) PCR Not detected (NOT DETECT) 05/30/22 12:30 Influenza A (H3) PCR Not detected (NOT DETECT) 05/30/22 12:30 Influenza Type A Ag Cancelled 05/30/22 12:30 Influenza Type A (PCR) Not detected (NOT DETECT) 05/30/22 12:30 Influenza Type B Ag Cancelled 05/30/22 12:30 Influenza Type B (PCR) Not detected (NOT DETECT) 05/30/22 12:30 Entero/Rhino (PCR) Detected (NOT DETECT) A 05/10/22 16:49 SARS-CoV-2 (PCR) Not detected (NOT DETECT) 05/30/22 12:30 Vitals Last Vital Signs Temp 97.3 F L 06/02/22 08:00 Pulse 97 06/02/22 09:15 Resp 18 06/02/22 09:09 BP 166/98 06/02/22 08:00 Pulse Ox 97 06/02/22 09:09 O2 Del Method 06/02/22 09:09 O2 Flow Rate 5 06/02/22 09:09 Discharge Plan Discharge Patient Disposition: Xfer SNF Condition: Stable Prescriptions: New ferrous sulfate 325 mg (65 mg iron) Tablet,Delayed Release (Dr/Ec) 325 mg PO BIDWM 30 Days Qty: 30 0RF escitalopram oxalate 10 mg Tablet 10 mg PO DAILY 30 Days Qty: 30 0RF haloperidol 1 mg Tablet 1 mg PO BID 30 Days Qty: 60 0RF Lanolin (HPA) 100 % Cream 1 applic topical PRN PRN (Reason: Dryness) 30 Days Qty: 10 0RF lidocaine 5 % Adhesive Patch,Medicated 1 patch topical [id number] PRN (Reason: pain) 30 Days Qty: 30 0RF mirtazapine 15 mg Tablet 15 mg PO BEDTIME 30 Days Qty: 30 0RF metoprolol tartrate 25 mg Tablet 12.5 mg PO BID@0900,2100 30 Days Qty: 30 0RF polyethylene glycol 3350 17 gram Powder In Packet 17 g PO BID 30 Days Qty: 30 0RF pantoprazole 40 mg Tablet,Delayed Release (Dr/Ec) 40 mg PO DAILY 30 Days Qty: 30 0RF prednisone 20 mg tablet 40 mg PO DAILY 5 Days Qty: 5 0RF Continued albuterol sulfate [ProAir HFA] 90 mcg/actuation HFA aerosol inhaler 2 puff INHALATION Q6H PRN (Reason: Shortness Of Breath) albuterol sulfate 2.5 mg /3 mL (0.083 %) solution for nebulization 2.5 mg inhalation Q6H PRN (Reason: bronchospasm) Qty: 180 5RF alprazolam 0.25 mg tablet 0.25 mg PO BID PRN (Reason: Anxiety) temazepam 15 mg capsule 15 mg PO BEDTIME PRN (Reason: sleep) Rx Instructions: 1-2 caps as needed at HS (DME) Home oxygen See Rx Instructions .Route .MEDSUPPLY Qty: 1 0RF Rx Instructions: give machine and supplies. 3 L per NC at rest/ sleep and with activity fluticasone propionate 50 mcg/actuation spray,suspension 1 spray intranasal Q12H Qty: 16 4RF diltiazem HCl 120 mg tablet 120 mg PO BID Trelegy Ellipta 100-62.5-25 mcg blister with device 1 inh INHALATION DAILY@09 hydrocodone-acetaminophen 5-325 mg tablet 1 tab PO Q6H PRN (Reason: pain) Qty: 14 0RF prednisone 5 mg tablet 5 mg PO DAILY Changed furosemide 20 mg tablet 40 mg PO QAM 30 Days Qty: 30 0RF Discontinued Eliquis 2.5 mg tablet 2.5 mg PO BID Qty: 60 3RF Discharge Orders: Discharge Order (Routine); Ordered 06/02/22 Ordered By: Selma Rosa Referrals: DatarRafael MD [Physician] - 2 weeks (Pulmonary hypertension, COPD) Thompson Zuluaga MD [Primary Care Provider] - 06/07/22 2:45 pm (A follow-up appointment has been scheduled for you with Dr. Zuluaga for 06/07/2022 at 2:45. If you have any questions, please call [phone].) Discharge Diet: As Directed Discharge Activity: As per PT/OT instructions Patient Instructions: Atrial Fibrillation, Metoprolol (By mouth) (Lopressor, Toprol XL), Lidocaine (On the skin) (Anecream, Astero, Burn-O-Jel, Burnamycin, Ztlido), Mirtazapine (By mouth) (Remeron, Remeron Soltab), Pantoprazole (By mouth) (Protonix), Polyethylene Glycol 3350 (By mouth) (Miralax, Healthylax..., Escitalopram (By mouth) (Lexapro), Haloperidol (By mouth), Ascorbic Acid/Cyanocobalamin/Ferrous Fumarate (By mouth), Lanolin (On the skin) (Lansinoh For Breast Feeding Mothers,..., Nonruptured Abdominal Aortic Aneurysm (DC), Encephalopathy (DC) Discharge Attestations Time Spent in Discharge Care*: less than 30 min Status at Discharge: Cognitive status at discharge: cognitively intact , Behavioral status at discharge: cooperative and independent in ADL's , Quality Metrics Clinical Quality Measures [ No reported AMI, CVA or VTE this stay] Coding Level of Care Code Acute Code for Chg Fwd Diagnoses Dyspnea R06.03 Dyspnea type: acute respiratory distress Unable to function independently Z78.9 Nicotine addiction F17.200 Suicidal ideation R45.851 Severe depression F32.2 Acute CHF I50.9 Chronic respiratory failure with hypoxia J96.11 Chronic obstructive pulmonary disease J44.9 DVT (deep venous thrombosis) I82.409
[2022-06-02] MEDS: collagenase oint 30 gm 1 APPLIC TOPICAL (10:07)
[2022-06-02] MEDS: lidocaine 5% Patch 1 PATCH TOPICAL (10:12)
[2022-06-02 12:36] VITALS: BP 166/98; PULSE 97; RESP 18; TEMP 36.3; O2SAT 97
== END 2022-06-02 12:38 | disposition skilled nursing facility (03) | DRG 291 ==
LOC: ER 17:44 → ER IP 22:52 → CSU 05-11 15:32 → MEDSURG 05-31 22:27
PROVIDERS: Family Medicine; Internal Medicine; Student in an Organized Health Care Education/Training Program; Admitting Provider Internal Medicine; Emergency Provider Emergency Medicine; PCP Family Medicine; Visit Provider Psychiatry & Neurology Psychiatry
DX: I11.0 Hypertensive heart disease with heart failure (principal); G93.41 Metabolic encephalopathy; I50.33 Acute on chronic diastolic (congestive) heart failure; R45.851 Suicidal ideations; E87.1 Hypo-osmolality and hyponatremia; M62.82 Rhabdomyolysis; S36.892A Contusion of other intra-abdominal organs, initial encounter; J44.9 Chronic obstructive pulmonary disease, unspecified; Z99.81 Dependence on supplemental oxygen; Z79.52 Long term (current) use of systemic steroids; Z86.718 Personal history of other venous thrombosis and embolism; I48.0 Paroxysmal atrial fibrillation; Z92.3 Personal history of irradiation; I35.0 Nonrheumatic aortic (valve) stenosis; F17.210 Nicotine dependence, cigarettes, uncomplicated; F32.A Depression, unspecified; B97.89 Other viral agents as the cause of diseases classified elsewhere; I71.40 Abdominal aortic aneurysm, without rupture, unspecified; Z66 Do not resuscitate; R77.8 Other specified abnormalities of plasma proteins; I27.20 Pulmonary hypertension, unspecified; Z75.1 Person awaiting admission to adequate facility elsewhere; S32.302D Unspecified fracture of left ilium, subsequent encounter for fracture with routine healing; W19.XXXD Unspecified fall, subsequent encounter; L89.159 Pressure ulcer of sacral region, unspecified stage; I25.10 Atherosclerotic heart disease of native coronary artery without angina pectoris; K76.9 Liver disease, unspecified; D64.9 Anemia, unspecified; E86.1 Hypovolemia; Z86.73 Personal history of transient ischemic attack (TIA), and cerebral infarction without residual deficits; Z79.891 Long term (current) use of opiate analgesic; Z79.51 Long term (current) use of inhaled steroids; B96.20 Unspecified Escherichia coli [E. coli] as the cause of diseases classified elsewhere
CPT/HCPCS: 36415; 36416; 36600; 51702; 70450; 71045; 71275; 74177; 80048; 80051; 80053; 80074; 80202; 80306; 80307; 80503; 81003; 82140; 82274; 82330; 82550; 82728; 82805; 82962; 82977; 83540; 83550; 83605; 83690; 83735; 83880; 84100; 84145; 84443; 84484; 85018; 85025; 85651; 86140; 86160; 86162; 86235; 86255; 86376; 86403; 87040; 87086; 87150; 87186; 87205; 87449; 87631; 87635; 87801; 93005; 93306; 93970; 94640; 94664; 96365; 96366; 96367; 96374; 96375; 96376; 97110; 97116; 97161; 97167; 97530; 97535; 99285; J0692; J0696; J1170; J1630; J1940; J2270; J2543; J2920; J2930; J3370; J3480; J3490; J7050; J7512; J7613; J7626; J7644; Q9967

== ENCOUNTER 2022-07-03 05:56 | Inpatient (IN) | payer MEDICARE, SELFPAY ==
[2022-07-03] VITALS (11 sets, daily range): BP systolic 143–179; BP diastolic 55–89; PULSE 81–94; RESP 14–22; TEMP 36.2–36.8; O2SAT 77–98; BMI 24.3
--- NOTE | 2022-07-03 06:02 | ECG_ITS ---
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 Measurements Intervals [place] Rate: 77 P: -65 OK: 124 QRS: 69 QRSD: 90 T: 30 QT: 388 QTc: 441 Interpretive Statements SINUS RHYTHM WITH SINUS ARRHYTHMIAS SEPTAL MYOCARDIAL INFARCTION , OF INDETERMINATE AGE [40+ ms Q WAVE IN V1/V2] Compared to ECG 05/10/2022 20:39:31 Myocardial infarct finding now present Ectopic atrial rhythm no longer present T-wave abnormality no longer present Possible ischemia no longer present Electronically Signed On 07-03-2022 7:12:08 CDT by Octaviano Castro M.D. [email or web address]
--- NOTE | 2022-07-03 06:03 | XRR_ITS ---
PROCEDURE INFORMATION: Exam: XR Chest Exam date and time: 07/03/2022 6:20 AM Age: 72 years old Clinical indication: Shortness of breath; Additional info: SOB TECHNIQUE: Imaging protocol: Radiologic exam of the chest. Views: 1 view. COMPARISON: 1. CT angio chest w abd pel w con 05/10/2022 4:[address] abdomen pelvis w con* [id number] 05/15/2022 6:45 PM 3. CR (CHEST, ) 05/29/2022 12:36 PM FINDINGS: Lungs: Somewhat linear area of consolidation in the right upper lung suprahilar region, not present on prior exam. Persistent consolidation in the right lung base. Possible emphysematous changes. Retrocardiac left basilar consolidation may be atelectasis. Pleural spaces: Persistent blunting of the right costophrenic angle. Persistent trace blunting of the left costophrenic angle. Heart/Mediastinum: The cardiomediastinal silhouette is within normal limits. Bones/joints: Unremarkable. XR/XR chest 1V portable [id number] IMPRESSION: 1. New consolidation in the right upper lung, concerning for possible pneumonia. 2. Consolidation in the right lung base again noted similar to prior exam. 3. Small right-sided pleural effusion similar to prior exam.
[2022-07-03 06:11] LABS: ABG PCO2 44.8 mmHg (35-45); ABG PH Result 7.45 (7.35-7.45); Base Excess ABG 6.4 mmol/L (-2.0-2.0); Blood Gas Allen Test Pos; Blood Gas Sample Site Radial, left; Blood Gas Sample Type Arterial; Carboxyhemoglobin 2.2 %THgb (0.4-20.1); HCO3 ABG 31.1 mmol/L (22-26); HGB O2 Sat 90.6 % (95-100); Methemoglobin 0.5 % (0.4-1.5); Oxygen Device OXY MASK; PO2 ABG 63.5 mmHg (80.0-100.0); Total Hemoglobin 10.1 g/dL (12-16)
[2022-07-03 06:22] LABS: Basophils % 0.7 %; Eosinophils # 0.1 10^3/uL (0.0-0.8); Eosinophils % 1.7 %; Hematocrit 32.5 % (37.0-47.0); Hemoglobin 9.5 g/dL (11.5-15.3); Lymphocytes # 1.2 10^3/uL (0.8-4.8); Lymphocytes % 19.7 %; Mean Corpuscular HGB Conc 29.2 g/dL (30.0-36.0); Mean Corpuscular Hemoglobin 25.7 pg (28.0-34.0); Mean Corpuscular Volume 88.1 fl (81-99); Mean Platelet Volume 9.3 fL (7.4-10.4); Monocytes # 0.8 10^3/uL (0.2-0.9); Monocytes % 13.5 %; Neutrophils # 3.79 10^3/uL (1.8-7.7); Neutrophils % 63.7 %; Nucleated Red Blood Cells % 0 %; Platelet Count 215 10^3/cmm (130-400); Red Blood Count 3.69 10^6/uL (4.1-5.3); Red Cell Distribution Width 17.1 % (12.1-15.1); White Blood Count 5.9 10^3/uL (4.0-10.0)
[2022-07-03 06:38] LABS: SARS Covid-2 Antigen negative (Negative)
[2022-07-03 06:43] LABS: Lactic Sepsis W/Reflex 0.9 mmol/L (0.5-2.2)
[2022-07-03 06:49] LABS: Alanine Aminotransferase 11 U/L (0-33); Albumin Level 3.1 g/dL (3.5-5.2); Alkaline Phosphatase 70 U/L (35-105); Anion Gap 10.5 (5-19); Aspartate Amino Transferase 15 U/L (0-32); Blood Urea Nitrogen 9 mg/dL (8-23); C Reactive Protein 67.9 mg/L (0.0-4.9); Calcium 8.6 mg/dL (8.5-10.5); Carbon Dioxide 30 mmol/L (22-29); Chloride 98 mmol/L (98-107); Glucose 108 mg/dL (65-115); NT Pro B Type Natriuretic Pept 3295 pg/mL (0-125); Osmolality Calculated 279 mOsm/kg (285-295); Potassium 3.5 mmol/L (3.5-5.1); Sodium 135 mmol/L (136-145); Total Bilirubin 0.5 mg/dL (0.15-1.2); Total Protein 6.1 g/dL (6.6-8.7)
--- NOTE | 2022-07-03 06:55 | ED_ITS ---
HPI - SOB/Dyspnea General: Chief Complaint: Shortness of Breath/Dyspnea Stated Complaint: SOB Time Seen by Provider: 07/03/22 06:02 Source: patient Mode of arrival: ambulatory History of Present Illness: HPI Narrative: 72-year-old male presents emergency room via EMS from local intermediate. She has a history of COPD she is a DNI on arrival here she is satting in the low 80s. MD elicited complaint: shortness of breath and cough Pertinent past history: COPD Onset (ago): hour(s) Severity: moderate Exacerbating factors: nothing Relieving factors: nothing Known history of: COPD Associated symptoms: Reports chest congestion; Deny abdominal pain, chest pain, cough, diaphoresis, dizziness, extremity pain, fever(s), hemoptysis, lightheadedness, myalgias, nausea, orthopnea, pa lpitations, paresthesias, polydipsia, polyuria, rash, sense of impending doom, syncope or vomiting Review of Systems Const: Denies: fever(s) or diaphoresis Card: Denies: chest pain, palpitations, lightheadedness, syncope or orthopnea Resp: Reports: chest congestion; Denies: hemoptysis GI: Denies: abdominal pain, nausea or vomiting Musc: Denies: extremity pain Neuro: Denies: dizziness Endo: Denies: polyuria or polydipsia PFSH ED PFSH: Medical History Allergic rhinitis Asthma Chronic obstructive pulmonary disease COPD (chronic obstructive pulmonary disease) DVT (deep venous thrombosis) Essential (primary) hypertension -VSS; continue to monitor -continue oral antihypertensives Hypoxia Moderate aortic stenosis -Noted moderate on echo; also noted to have EF=65%, no RWMA, G1DD, moderate pulmonary HTN, mild-moderate TR Nicotine addiction Paroxysmal A-fib Pulmonary nodule Subcapital fracture of left femur -secondary to mechanical fall -s/p bipolar arthroplasty by Dr. Good; POD # 3 -EBL-100 mL -PT/OT evaluations appreciated -strict fall precautions, pain control as needed -bowel regimen -Sherman catheter removed Surgical History H/O tubal ligation Family History Father CAD (coronary artery disease) Mother Cancer Social History Smoking and tobacco status: current every day smoker cigarettes Packs smoked per day: 1.5 Years cigarettes smoked: 50 [ Other cigarette details: Started at age 13 years] Quit status (tobacco): considering quitting Smoking risk assessment/counseling performed?: Yes Alcohol intake: never Counseling given: No Counseling given: No Lives independently: Yes Household members: none Marital status: Current occupational status: retired Current gender identity: Female Physical Exam Const: GENERAL APPEARANCE: cooperative and comfortable ORIENTATION/CONSCIOUSNESS: Yes awake, Yes oriented to person, Yes oriented to place and Yes oriented to time HENMT: COMMON NORMALS: normocephalic, atraumatic and hearing grossly normal b ilaterally HEAD & SCALP: normocephalic and atraumatic Resp: COMMON NORMALS: normal respiratory effort, No retractions, No use of accessory muscles and clear to auscultation bilaterally AUSCULTATION: clear to auscultation bilaterally Cardio: COMMON NORMALS: regular rate, regular rhythm and No murmurs present (Cardio) RATE: regular rate RHYTHM: regular rhythm GI: COMMON NORMALS: Soft to palpation and No hepatosplenomegaly present AUSCULTATION: Yes normoactive bowel sounds PALPATION: Yes Soft to palpation, No Tenderness to palpation present (GI), No Guarding due to palpation present (GI) and Yes No hepatosplenomegaly present Extremity: COMMON NORMALS: normal to inspection, capillary refill normal, no clubbing, cyanosis or edema, no calf tenderness and no pedal edema Neuro: SENSORIUM/ORIENTATION: Yes oriented to person, Yes oriented to place and Yes oriented to time Skin: COMMON NORMALS: no rashes or lesions noted GENERAL SKIN EXAM: no rashes or lesions noted Course Vital Signs: Vital signs: Vital Signs Temperature 97.1 F L 07/03/22 05:57 Pulse Rate 84 07/03/22 05:57 Respiratory Rate 18 07/03/22 05:57 Blood Pressure 143/55 07/03/22 05:57 Pulse Oximetry 94 07/03/22 06:04 Oxygen Delivery Me thod 07/03/22 06:04 Oxygen Flow Rate 5 07/03/22 06:04 MDM - SOB/Dyspnea Medical Decision Making New right upper lobe pneumonia. Patient has chronic left pleural effusion which is stable. Her BNP is slightly elevated clinically she does not appear to be fluid overloaded. She normally is on 3 L by nasal cannula is now requiring 6 L by simple mask to maintain sats in the low 90s she did improve with the DuoNeb. We will admit started on Levaquin and Zosyn (she just did complete a course of Levaquin at the intermediate orally however). Discussed Dr. Webb orders written Medical Records I reviewed the patient's medical records. Lab Data I reviewed the patient's lab results. 07/03/22 06:10 07/03/22 06:10 Labs/Radiology: Radiology Impressions Chest X-Ray 07/03/22 06:03 IMPRESSION: 1. New consolidation in the right upper lung, concerning for possible pneumonia. 2. Consolidation in the right lung base again noted similar to prior exam. 3. Small right-sided pleural effusion similar to prior exam. Laboratory Results WBC 5.9 10^3/uL (4.0-10.0) 07/03/22 06:10 RBC 3.69 10^6/uL (4.1-5.3) L 07/03/22 06:10 Hgb 9.5 g/dL (11.5-15.3) L 07/03/22 06:10 Hct 32.5 % (37.0-47.0) L 07/03/22 06:10 MCV 88.1 fl (81-99) 07/03/22 06:10 MCH 25.7 pg (28.0-34.0) L 07/03/22 06:10 MCHC 29.2 g/dL (30.0-36.0) L 07/03/22 06:10 RDW 17.1 % (12.1-15.1) H 07/03/22 06:10 Plt Count 215 10^3/cmm (130-400) 07/03/22 06:10 MPV 9.3 fL (7.4-10.4) 07/03/22 06:10 Neut % (Auto) 63.7 % 07/03/22 06:10 Lymph % (Auto) 19.7 % 07/03/22 06:10 Vermillion % (Auto) 13.5 % 07/03/22 06:10 Eos % (Auto) 1.7 % 07/03/22 06:10 Baso % (Auto) 0.7 % 07/03/22 06:10 Neut # (Auto) 3.79 10^3/uL (1.8-7.7) 07/03/22 06:10 Lymph # (Auto) 1.2 10^3/uL (0.8-4.8) 07/03/22 06:10 Vermillion # (Auto) 0.8 10^3/uL (0.2-0.9) 07/03/22 06:10 Eos # (Auto) 0.1 10^3/uL (0.0-0.8) 07/03/22 06:10 Baso # (Auto) 0.0 10^3/uL (0.0-0.1) 07/03/22 06:10 Nucleated RBC % (auto) 0 % 07/03/22 06:10 Nucleated RBCs # 0.0 /100WBC 07/03/22 06:10 Specimen Type Arterial 07/03/22 06:00 Sample Site Radial, left 07/03/22 06:00 ABG pH 7.45 (7.35-7.45) 07/03/22 06:00 ABG pCO2 44.8 mmHg (35-45) 07/03/22 06:00 ABG pO2 63.5 mmHg (80.0-100.0) L 07/03/22 06:00 ABG HCO3 31.1 mmol/L (22-26) H 07/03/22 06:00 ABG Base Excess 6.4 mmol/L (-2.0-2.0) H 07/03/22 06:00 Duncan Test Pos 07/03/22 06:00 Hematocrit 31.0 % (37-47) L 07/03/22 06:00 Hgb O2 Saturation 90.6 % (95-100) L 07/03/22 06:00 Carboxyhemoglobin 2.2 %THgb (0.4-20.1) 07/03/22 06:00 Methemoglobin 0.5 % (0.4-1.5) 07/03/22 06:00 Total Hemoglobin 10.1 g/dL (12-16) L 07/03/22 06:00 O2 Delivery Device Oxy mask 07/03/22 06:00 O2 Liters/Min 7.0 % 07/03/22 06:00 Pegger Dobby Looms ID Karen 07/03/22 06:00 Sodium 135 mmol/L (136-145) L 07/03/22 06:10 Potassium 3.5 mmol/L (3.5-5.1) 07/03/22 06:10 Chloride 98 mmol/L (98-107) 07/03/22 06:10 Carbon Dioxide 30 mmol/L (22-29) H 07/03/22 06:10 Anion Gap 10.5 (5-19) 07/03/22 06:10 BUN 9 mg/dL (8-23) 07/03/22 06:10 Creatinine 0.5 mg/dL (0.5-0.9) 07/03/22 06:10 GFR Calculation Not Reportable 07/03/22 06:10 Glucose 108 mg/dL (65-115) 07/03/22 06:10 Calculated Osmolality 279 mOsm/kg (285-295) L 07/03/22 06:10 Lactic Acid 0.9 mmol/L (0.5-2.2) 07/03/22 06:10 Calcium 8.6 mg/dL (8.5-10.5) 07/03/22 06:10 Total Bilirubin 0.5 mg/dL (0.15-1.2) 07/03/22 06:10 AST 15 U/L (0-32) 07/03/22 06:10 ALT 11 U/L (0-33) 07/03/22 06:10 Alkaline Phosphatase 70 U/L (35-105) 07/03/22 06:10 C-Reactive Protein 67.9 mg/L (0.0-4.9) H 07/03/22 06:10 NT-Pro-B Natriuret Pep 3295 pg/mL (0-125) H 07/03/22 06:10 Total Protein 6.1 g/dL (6.6-8.7) L 07/03/22 06:10 Albumin 3.1 g/dL (3.5-5.2) L 07/03/22 06:10 Globulin 3.0 g/dL (1.3-4.6) 07/03/22 06:10 SARS-CoV-2 Ag (Rapid) negative (Negative) 07/03/22 06:10 Discharge Plan Discharge Patient Disposition: Admitted As Inpatient Clinical Impression: Pneumonia, Acute exacerbation of chronic obstructive airways disease Condition: Stable Prescriptions: No Action albuterol sulfate [ProAir HFA] 90 mcg/actuation HFA aerosol inhaler 2 puff INHALATION Q6H PRN (Reason: Shortness Of Breath) albuterol sulfate 2.5 mg /3 mL (0.083 %) solution for nebulization 2.5 mg inhalation Q6H PRN (Reason: bronchospasm) Qty: 180 5RF alprazolam 0.25 mg tablet 0.25 mg PO BID PRN (Reason: Anxiety) temazepam 15 mg capsule 15 mg PO BEDTIME PRN (Reason: sleep) Rx Instructions: 1-2 caps as needed at HS (DME) Home oxygen See Rx Instructions .Route .MEDSUPPLY Qty: 1 0RF Rx Instructions: give machine and supplies. 3 L per NC at rest/ sleep and with activity fluticasone propionate 50 mcg/actuation spray,suspension 1 spray intranasal Q12H Qty: 16 4RF diltiazem HCl 120 mg tablet 120 mg PO BID Trelegy Ellipta 100-62.5-25 mcg blister with device 1 inh INHALATION DAILY@09 hydrocodone-acetaminophen 5-325 mg tablet 1 tab PO Q6H PRN (Reason: pain) Qty: 14 0RF prednisone 5 mg tablet 5 mg PO DAILY furosemide 20 mg tablet 40 mg PO QAM 30 Days Qty: 30 0RF Referrals: Thompson Zuluaga MD [Primary Care Provider] - Coding Level of Care Code ED Contact Agent for Nan Chaudhary
[2022-07-03] MEDS: piperacillin-tazobactam 3.375 GM in sodium chloride 0.9% (plus) 50 ML IV (07:39)
[2022-07-03] MEDS: ipratropium-albuterol 3 mL Neb INHALATION ×3 (08:13→19:57)
[2022-07-03] MEDS: levofloxacin-dextrose 5 % 750 MG/150 ML PREMIX 100 MG IV (08:24)
--- NOTE | 2022-07-03 09:06 | PC.NURSE ---
REPORT CALLED TO HENOK RENO.
--- NOTE | 2022-07-03 11:29 | P.HP_ITS ---
Providers/Chief Complaint Admitting Physician: Daniel Webb MD Primary Care Provider: Thompson Zuluaga MD Chief Complaint: SOB History of Present Illness Lisset Murphy is a 72 year old female with PMH of end stage COPD Gold class D chronically on 5ls home oxygen, as well as po prednisone, dvt,a,fib, not on ac due to recurrent fall as well as she also has prior h/o RPH was brought in from the [facility] with c/o worsening sob going on for the last few days,she has h/o chronic cough,denied any fever,chest pain, headache,runny nose. xray chest shown : New consolidation in the right upper lung, concerning for possible pneumonia.Consolidation in the right lung base again noted similar to prior exam. Small right-sided pleural effusion similar to prior exam. Pertinent labs : WBC : 5.9 H&H : 9.5/32 PLT : 215 Na : 135 K : 3.5 BUN/SCR : 9/0,5 Patient was given :Zosyn and levofloxacin in ER. Review of Systems General: Reports: 10 or more systems reviewed and unremarkable except in HPI and below Const: Denies: fever(s), chills, body aches, change in appetite or diaphoresis Card: Reports: dyspnea on exertion; Denies: palpitations, edema, swelling of feet/ankles, orthopnea or leg pain with exertion Resp: Reports: dyspnea; Denies: productive cough, wheezing or pain on inspiration GI: Denies: abdominal pain, nausea, vomiting, diarrhea or constipation : Denies: flank pain Musc: Denies: back pain, extremity pain or extremity swelling Neuro: Denies: headache(s), difficulty walking or confusion Medications/Allergies Home Medications Medication Instructions Recorded Confirmed Last Taken Type albuterol sulfate 90 mcg/actuation 2 puff inhalation Q6H PRN 06/20/19 07/03/22 01/25/22 History aerosol inhaler (ProAir HFA) Shortness Of Breath albuterol sulfate 2.5 mg/3 mL 2.5 mg (3 mL) inhalation Q6H PRN 04/22/21 07/03/22 01/25/22 Rx (0.083 %) solution for nebulization bronchospasm #180 mL diltiazem HCl 120 mg tablet 120 mg PO BID 06/16/21 07/03/22 05/10/22 History fluticasone fur. 100 mcg-umeclid 1 inh inhalation DAILY@09 06/16/21 07/03/22 01/25/22 History 62.5 mcg-vilant 25 mcg inhalat.powder (Trelegy Ellipta) alprazolam 0.25 mg tablet 0.25 mg PO BEDTIME 01/25/22 07/03/22 Unknown History temazepam 15 mg capsule 15 mg PO BEDTIME PRN sleep 01/25/22 07/03/22 Unknown History Home oxygen #1 ea 02/02/22 07/03/22 Unknown Rx fluticasone propionate 50 1 spray intranasal Q12H #16 grams 03/09/22 07/03/22 Unknown Rx mcg/actuation nasal spray,suspension hydrocodone 5 mg-acetaminophen 325 1 tab PO Q6H PRN pain #14 tabs 05/05/22 07/03/22 05/10/22 Rx mg tablet prednisone 5 mg tablet 5 mg PO DAILY 05/10/22 07/03/22 05/09/22 History furosemide 20 mg tablet 40 mg PO QAM 30 days #30 tabs 05/27/22 07/03/22 05/09/22 Rx acetaminophen 500 mg capsule 1,000 mg PO Q6H PRN Pain 07/03/22 07/03/22 Unknown History docusate sodium 100 mg capsule 200 mg PO BID PRN Constipation 07/03/22 07/03/22 Unknown History escitalopram oxalate 10 mg tablet 10 mg PO DAILY 07/03/22 07/03/22 Unknown History (Lexapro) ferrous sulfate 325 mg (65 mg 325 mg PO BID 07/03/22 07/03/22 Unknown History iron) tablet loperamide 2 mg capsule 4 mg PO BID PRN Diarrhea 07/03/22 07/03/22 Unknown History metoprolol tartrate 25 mg tablet 12.5 mg PO BID 07/03/22 07/03/22 Unknown History mirtazapine 15 mg tablet 15 mg PO DAILY 07/03/22 07/03/22 Unknown History pantoprazole 40 mg tablet,delayed 40 mg PO DAILY 07/03/22 07/03/22 Unknown History release polyethylene glycol 3350 17 17 g PO DAILY PRN Constipation 07/03/22 07/03/22 Unknown History gram/dose oral powder (Miralax) temazepam 15 mg capsule 30 mg PO BEDTIME PRN Insomnia 07/03/22 07/03/22 Unknown History Allergies Allergy/AdvReac Type Severity Reaction Status Date / Time shrimp Allergy ADR-Nausea Uncoded 06/30/22 13:17 PFSH Acute PFSH: Medical History Allergic rhinitis Asthma Chronic obstructive pulmonary disease COPD (chronic obstructive pulmonary disease) DVT (deep venous thrombosis) Essential (primary) hypertension -VSS; continue to monitor -continue oral antihypertensives Hypoxia Moderate aortic stenosis -Noted moderate on echo; also noted to have EF=65%, no RWMA, G1DD, moderate pulmonary HTN, mild-moderate TR Nicotine addiction Paroxysmal A-fib Pulmonary nodule Subcapital fracture of left femur -secondary to mechanical fall -s/p bipolar arthroplasty by Dr. Good; POD # 3 -EBL-100 mL -PT/OT evaluations appreciated -strict fall precautions, pain control as needed -bowel regimen -Sherman catheter removed Surgical History H/O tubal ligation Family History Father CAD (coronary artery disease) Mother Cancer Social History Smoking and tobacco status: current every day smoker cigarettes Packs smoked per day: 1.5 Years cigarettes smoked: 50 [ Other cigarette details: Started at age 13 years] Quit status (tobacco): considering quitting Smoking risk assessment/counseling performed?: Yes Alcohol intake: never Counseling given: No Counseling given: No Lives independently: Yes Household members: none Marital status: Current occupational status: retired Current gender identity: Female Vitals/I&O/Wt Last Vital Signs Temp 97.1 F L 07/03/22 05:57 Pulse 85 07/03/22 09:00 Resp 18 07/03/22 08:15 BP 150/65 07/03/22 09:00 Pulse Ox 94 07/03/22 09:00 O2 Del Method 07/03/22 08:15 O2 Flow Rate 5 07/03/22 08:15 07/02/22 07/03/22 07/03/22 22:59 06:59 14:59 Intake Total 200 / 200 Balance 200 / 200 Weight last 48 hrs Weight 77.111 kg Physical Exam Const: COMMON NORMALS: patient oriented x3 HENMT: COMMON NORMALS: normocephalic and atraumatic HEAD & SCALP: normocephalic and atraumatic Resp: COMMON NORMALS: clear to auscultation bilaterally AUSCULTATION: clear to auscultation bilaterally Cardio: COMMON NORMALS: regular rate, regular rhythm, S1 normal heart sound present, S2 normal heart sound present, No gallops present (Cardio), No murmurs present (Cardio), No rub (Cardio) and Peripheral pulses 2+ throughout RATE: regular rate RHYTHM: regular rhythm HEART SOUNDS: S1 normal heart sound present and S2 normal heart sound present PERIPHERAL PULSES: Peripheral p ulses 2+ throughout GI: COMMON NORMALS: Normal to inspection, nondistended, normoactive bowel sounds present, Soft to palpation, non-tender, No hepatosplenomegaly present and no masses AUSCULTATION: Yes normoactive bowel sounds PALPATION: Yes Soft to palpation and Yes No hepatosplenomegaly present RECTAL EXAM: deferred Extremity: COMMON NORMALS: no clubbing, cyanosis or edema and no pedal edema Neuro: COMMON NORMALS: patient oriented x3 Data 07/03/22 06:10 07/03/22 06:10 Micro: Microbiology 07/03/22 07:46 Blood Culture - Preliminary Blood SPECIMEN COLLECTED 07/03/22 07:42 Blood Culture - Preliminary Blood SPECIMEN COLLECTED A&P Assessment and plan (1) Pneumonia: (2) Chronic obstructive pulmonary disease: (3) Normocytic anemia: Plan 72 year old female with PMH of end stage COPD Gold class D chronically on 5ls home oxygen, as well as po prednisone, dvt,a,fib, not on ac due to recurrent fall as well as she also has prior h/o RPH was brought in from the sn[facility] with c/o worsening sob going on for the last few days,she has h/o chronic cough,denied any fever,chest pain, headache,runny nose. Assessment : Pneumonia : xray chest shown : New consolidation in the right upper lung, concerning for possible pneumonia.Consolidation in the right lung base again noted similar to prior exam. Small right-sided pleural effusion similar to prior exam. Sputum Gram stain and culture Urine Legionella Antigen Bacterial antigen panel MRSA PCR Currently on ceftriaxone and azithromycin H/O COPD : Usually on 5 Ls home oxygen through [facility] currently on 6 Ls oxygen through [facility] Duo nebs Supplemental oxygen as needed Continue home prednisone. Code status :AND DVT PPX: On lovenox Attestations Medical Necessity Statement*: Patient needs to be in hospital for the management of PNA,Need for I.V ABXS. Anticipated LOS greater then 2 midnights. Coding Level of Care Code 14112 Diagnoses Pneumonia J18.9 Chronic obstructive pulmonary disease J44.9 Normocytic anemia D64.9
[2022-07-03] MEDS: azithromycin 500 MG in sodium chloride 0.9% 250 ML 250 MG IV (14:00)
[2022-07-03] MEDS: enoxaparin 40 mg/0.4 mL Syringe SUBCUT (14:01)
[2022-07-03] MEDS: cefTRIAXone 1,000 MG in sodium chloride 0.9% (plus) 50 ML 100 MG IV (14:56)
[2022-07-03] MEDS: metoprolol tartrate 25 mg Tablet 12.5 MG PO (16:58)
[2022-07-03] MEDS: ferrous sulfate EC 325 mg Tablet PO (16:58)
[2022-07-03] MEDS: budesonide 0.5 mg/2 mL Neb INHALATION (19:57)
[2022-07-03] MEDS: dilTIAZem ER (12HR) 60 mg Capsule 120 MG PO (21:06)
[2022-07-04 03:07] VITALS: PULSE 96; RESP 16; O2SAT 97
[2022-07-04] MEDS: ipratropium-albuterol 3 mL Neb INHALATION ×2 (03:14→08:45)
[2022-07-04 04:00] VITALS: BP 187/96; PULSE 97; RESP 19; TEMP 36.9; O2SAT 95
[2022-07-04 05:28] LABS: Basophils % 0.3 %; Hematocrit 34.6 % (37.0-47.0); Hemoglobin 9.7 g/dL (11.5-15.3); Lymphocytes # 0.4 10^3/uL (0.8-4.8); Mean Corpuscular Hemoglobin 24.9 pg (28.0-34.0); Mean Corpuscular Volume 88.9 fl (81-99); Mean Platelet Volume 9.6 fL (7.4-10.4); Monocytes # 0.4 10^3/uL (0.2-0.9); Monocytes % 10.3 %; Neutrophils % 79.6 %; Nucleated Red Blood Cells % 0 %; Platelet Count 221 10^3/cmm (130-400); Red Blood Count 3.89 10^6/uL (4.1-5.3); Red Cell Distribution Width 16.4 % (12.1-15.1); White Blood Count 3.9 10^3/uL (4.0-10.0)
[2022-07-04 05:45] LABS: Anion Gap 12.7 (5-19); Blood Urea Nitrogen 15 mg/dL (8-23); Calcium 8.7 mg/dL (8.5-10.5); Carbon Dioxide 29 mmol/L (22-29); Chloride 100 mmol/L (98-107); Glucose 159 mg/dL (65-115); Osmolality Calculated 288 mOsm/kg (285-295); Potassium 4.7 mmol/L (3.5-5.1); Sodium 137 mmol/L (136-145)
[2022-07-04] MEDS: predniSONE 5 mg Tablet PO (07:38)
[2022-07-04] MEDS: escitalopram 10 mg Tablet PO (07:38)
[2022-07-04] MEDS: metoprolol tartrate 25 mg Tablet 12.5 MG PO (07:38)
[2022-07-04] MEDS: ferrous sulfate EC 325 mg Tablet PO (07:38)
[2022-07-04] MEDS: pantoprazole DR 40 mg Tablet PO (07:38)
[2022-07-04] MEDS: dilTIAZem ER (12HR) 60 mg Capsule 120 MG PO (07:39)
[2022-07-04 07:54] VITALS: PULSE 83; RESP 18; O2SAT 92
[2022-07-04 08:00] VITALS: BP 148/70; PULSE 80; RESP 15; TEMP 36.4; O2SAT 93
[2022-07-04] MEDS: budesonide 0.5 mg/2 mL Neb INHALATION (08:45)
[2022-07-04] MEDS: enoxaparin 40 mg/0.4 mL Syringe SUBCUT (11:21)
[2022-07-04] MEDS: cefTRIAXone 1,000 MG in sodium chloride 0.9% (plus) 50 ML 100 MG IV (11:22)
--- NOTE | 2022-07-04 11:51 | PM.DCS ---
Discharge Providers Date of Admission: 07/03/22 11:24 Date of Discharge: July 04, 2022 Attending Provider at Admission: Daniel Webb MD Attending Provider at Discharge: Daniel Webb MD Primary Care Provider: Thompson Zuluaga MD Diagnoses at Discharge Discharge Diagnosis (1) Pneumonia: Status: Acute (2) Chronic obstructive pulmonary disease: Status: Acute (3) Normocytic anemia: Status: Acute Reason for Visit Reason for Visit: SOB Hospital Course Hospital Course Lisset Murphy is a 72 year old female with PMH of end stage COPD Gold class D chronically on 5ls home oxygen, as well as po prednisone, dvt,a,fib, not on ac due to recurrent fall as well as she also has prior h/o RPH was brought in from the skilled nursing with c/o worsening sob going on for the last few days,she has h/o chronic cough,denied any fever,chest pain, headache,runny nose. xray chest shown :?New consolidation in the right upper lung, concerning for possible pneumonia.Consolidation in the right lung base again noted similar to prior exam. Small right-sided pleural effusion similar to prior exam.She was admitted for the management of pneumonia, she was kept on IV antibiotic during the hospital stay, blood cultures were negative till the time of discharge, urine Legionella antigen bacterial antigen panel negative, she was afebrile, at the time of discharge saturating at her baseline oxygen requirement, reported significant improvement in shortness of breath, she is being discharged home on p.o. levofloxacin for additional 5 days, to complete the antibiotic course for pneumonia. She will continue to follow with primary care physician as outpatient. Physical Exam Const: COMMON NORMALS: patient oriented x3 HENMT: COMMON NORMALS: normocephalic and atraumatic HEAD & SCALP: normocephalic and atraumatic Resp: OTHER: Diminished air entry bilaterally Cardio: COMMON NORMALS: regular rate, regular rhythm, S1 normal heart sound present, S2 normal heart sound present, No gallops present (Cardio), No murmurs present (Cardio), No rub (Cardio) and Peripheral pulses 2+ throughout RATE: regular rate RHYTHM: regular rhythm HEART SOUNDS: S1 normal heart sound present and S2 normal heart sound present PERIPHERAL PULSES: Peripheral pulses 2+ throughout GI: COMMON NORMALS: Normal to inspection, nondistended, normoactive bowel sounds present, Soft to palpation, non-tender, No hepatosplenomegaly present and no masses AUSCULTATION: Yes normoactive bowel sounds PALPATION: Yes Soft to palpation and Yes No hepatosplenomegaly present RECTAL EXAM: deferred Extremity: COMMON NORMALS: no clubbing, cyanosis or edema and no pedal edema Neuro: COMMON NORMALS: patient oriented x3 Discharge Data Studies Completed and Pending Completed Studies During Hospitalization Category Date Time Status XR chest 1V portable [id number] Stat Exams 07/03/22 06:03 Completed Pending at discharge Category Date Time Status Basic Metabolic Panel AM LABS Lab 07/05/22 04:00 Ordered Basic Metabolic Panel AM LABS Lab 07/06/22 04:00 Ordered Blood Culture Stat Lab 07/03/22 07:46 Results Complete Blood Count w/Auto AM LABS Lab 07/05/22 04:00 Ordered Complete Blood Count w/Auto AM LABS Lab 07/06/22 04:00 Ordered Sputum Culture and Gram Stain Routine Lab 07/03/22 14:52 Uncollected Radiology Impressions Chest X-Ray 07/03/22 06:03 IMPRESSION: 1. New consolidation in the right upper lung, concerning for possible pneumonia. 2. Consolidation in the right lung base again noted similar to prior exam. 3. Small right-sided pleural effusion similar to prior exam. Laboratory Results WBC 3.9 10^3/uL (4.0-10.0) L 07/04/22 04:50 RBC 3.89 10^6/uL (4.1-5.3) L 07/04/22 04:50 Hgb 9.7 g/dL (11.5-15.3) L 07/04/22 04:50 Hct 34.6 % (37.0-47.0) L 07/04/22 04:50 MCV 88.9 fl (81-99) 07/04/22 04:50 MCH 24.9 pg (28.0-34.0) L 07/04/22 04:50 MCHC 28.0 g/dL (30.0-36.0) L 07/04/22 04:50 RDW 16.4 % (12.1-15.1) H 07/04/22 04:50 Plt Count 221 10^3/cmm (130-400) 07/04/22 04:50 MPV 9.6 fL (7.4-10.4) 07/04/22 04:50 Neut % (Auto) 79.6 % 07/04/22 04:50 Lymph % (Auto) 9.0 % 07/04/22 04:50 [place] % (Auto) 10.3 % 07/04/22 04:50 Eos % (Auto) 0.0 % 07/04/22 04:50 Baso % (Auto) 0.3 % 07/04/22 04:50 Neut # (Auto) 3.10 10^3/uL (1.8-7.7) 07/04/22 04:50 Lymph # (Auto) 0.4 10^3/uL (0.8-4.8) L 07/04/22 04:50 [place] # (Auto) 0.4 10^3/uL (0.2-0.9) 07/04/22 04:50 Eos # (Auto) 0.0 10^3/uL (0.0-0.8) 07/04/22 04:50 Baso # (Auto) 0.0 10^3/uL (0.0-0.1) 07/04/22 04:50 Nucleated RBC % (auto) 0 % 07/04/22 04:50 Nucleated RBCs # 0.0 /100WBC 07/04/22 04:50 Specimen Type Arterial 07/03/22 06:00 Sample Site Radial, left 07/03/22 06:00 ABG pH 7.45 (7.35-7.45) 07/03/22 06:00 ABG pCO2 44.8 mmHg (35-45) 07/03/22 06:00 ABG pO2 63.5 mmHg (80.0-100.0) L 07/03/22 06:00 ABG HCO3 31.1 mmol/L (22-26) H 07/03/22 06:00 ABG Base Excess 6.4 mmol/L (-2.0-2.0) H 07/03/22 06:00 Duncan Test Pos 07/03/22 06:00 Hematocrit 31.0 % (37-47) L 07/03/22 06:00 Hgb O2 Saturation 90.6 % (95-100) L 07/03/22 06:00 Carboxyhemoglobin 2.2 %THgb (0.4-20.1) 07/03/22 06:00 Methemoglobin 0.5 % (0.4-1.5) 07/03/22 06:00 Total Hemoglobin 10.1 g/dL (12-16) L 07/03/22 06:00 O2 Delivery Device Oxy mask 07/03/22 06:00 O2 Liters/Min 7.0 % 07/03/22 06:00 Pellet Press Operator ID Karen 07/03/22 06:00 Sodium 137 mmol/L (136-145) 07/04/22 04:50 Potassium 4.7 mmol/L (3.5-5.1) 07/04/22 04:50 Chloride 100 mmol/L (98-107) 07/04/22 04:50 Carbon Dioxide 29 mmol/L (22-29) 07/04/22 04:50 Anion Gap 12.7 (5-19) 07/04/22 04:50 BUN 15 mg/dL (8-23) 07/04/22 04:50 Creatinine 0.4 mg/dL (0.5-0.9) L 07/04/22 04:50 GFR Calculation Not Reportable 07/04/22 04:50 Glucose 159 mg/dL (65-115) H 07/04/22 04:50 Calculated Osmolality 288 mOsm/kg (285-295) 07/04/22 04:50 Lactic Acid 0.9 mmol/L (0.5-2.2) 07/03/22 06:10 Calcium 8.7 mg/dL (8.5-10.5) 07/04/22 04:50 Total Bilirubin 0.5 mg/dL (0.15-1.2) 07/03/22 06:10 AST 15 U/L (0-32) 07/03/22 06:10 ALT 11 U/L (0-33) 07/03/22 06:10 Alkaline Phosphatase 70 U/L (35-105) 07/03/22 06:10 C-Reactive Protein 67.9 mg/L (0.0-4.9) H 07/03/22 06:10 NT-Pro-B Natriuret Pep 3295 pg/mL (0-125) H 07/03/22 06:10 Total Protein 6.1 g/dL (6.6-8.7) L 07/03/22 06:10 Albumin 3.1 g/dL (3.5-5.2) L 07/03/22 06:10 Globulin 3.0 g/dL (1.3-4.6) 07/03/22 06:10 SARS-CoV-2 Ag (Rapid) negative (Negative) 07/03/22 06:10 Vitals Last Vital Signs Temp 97.6 F 07/04/22 08:00 Pulse 80 07/04/22 08:00 Resp 15 07/04/22 08:00 BP 148/70 07/04/22 08:00 Pulse Ox 93 07/04/22 08:00 O2 Del Method 07/04/22 08:00 O2 Flow Rate 5 07/04/22 08:00 Discharge Plan Discharge Patient Disposition: Xfer SNF Condition: Stable Prescriptions: New levofloxacin 750 mg tablet 750 mg PO DAILY 5 Days Qty: 5 0RF Continued albuterol sulfate [ProAir HFA] 90 mcg/actuation HFA aerosol inhaler 2 puff INHALATION Q6H PRN (Reason: Shortness Of Breath) albuterol sulfate 2.5 mg /3 mL (0.083 %) solution for nebulization 2.5 mg inhalation Q6H PRN (Reason: bronchospasm) Qty: 180 5RF alprazolam 0.25 mg tablet 0.25 mg PO BEDTIME temazepam 15 mg capsule 15 mg PO BEDTIME PRN (Reason: sleep) Rx Instructions: 1-2 caps as needed at HS (DME) Home oxygen See Rx Instructions .Route .MEDSUPPLY Qty: 1 0RF Rx Instructions: give machine and supplies. 3 L per NC at rest/ sleep and with activity fluticasone propionate 50 mcg/actuation spray,suspension 1 spray intranasal Q12H Qty: 16 4RF diltiazem HCl 120 mg tablet 120 mg PO BID Trelegy Ellipta 100-62.5-25 mcg blister with device 1 inh INHALATION DAILY@09 hydrocodone-acetaminophen 5-325 mg tablet 1 tab PO Q6H PRN (Reason: pain) Qty: 14 0RF prednisone 5 mg tablet 5 mg PO DAILY furosemide 20 mg tablet 40 mg PO QAM 30 Days Qty: 30 0RF loperamide 2 mg Capsule 4 mg PO BID PRN (Reason: Diarrhea) Rx Instructions: administer after each loose stool until symptoms controlled; do not exceed 8 mg per 24 hrs temazepam 15 mg Capsule 30 mg PO BEDTIME PRN (Reason: Insomnia) pantoprazole 40 mg Tablet,Delayed Release (Dr/Ec) 40 mg PO DAILY ferrous sulfate 325 mg (65 mg iron) Tablet 325 mg PO BID docusate sodium 100 mg Capsule 200 mg PO BID PRN (Reason: Constipation) mirtazapine 15 mg Tablet 15 mg PO DAILY Miralax 17 gram/dose Powder 17 g PO DAILY PRN (Reason: Constipation) acetaminophen 500 mg Capsule 1,000 mg PO Q6H PRN (Reason: Pain) Lexapro 10 mg Tablet 10 mg PO DAILY metoprolol tartrate 25 mg Tablet 12.5 mg PO BID Discharge Orders: Discharge Order (Routine); Ordered 07/04/22 Ordered By: Daniel Webb Referrals: Thompson Zuluaga MD [Primary Care Provider] - Patient Instructions: Opioid Safety Discharge Attestations Time Spent in Discharge Care*: less than 30 min Status at Discharge: Cognitive status at discharge: cognitively intact, Behavioral status at discharge: cooperative and independent in ADL's, Quality Metrics Clinical Quality Measures [ No reported AMI, CVA or VTE this stay] Coding Level of Care Code Acute Code for Chg Fwd Diagnoses Pneumonia J18.9 Chronic obstructive pulmonary disease J44.9 Normocytic anemia D64.9
[2022-07-04 12:00] VITALS: BP 150/70; PULSE 86; RESP 14; TEMP 37.1; O2SAT 95
--- NOTE | 2022-07-04 12:31 | PC.NURSE ---
Report called to María at [facility]
[2022-07-04 14:28] VITALS: BP 150/70; PULSE 86; RESP 14; TEMP 37.1; O2SAT 95
== END 2022-07-04 14:29 | disposition skilled nursing facility (03) | DRG 195 ==
LOC: ER 08:07 → MEDSURG 08:43
PROVIDERS: Emergency Medicine; Admitting Provider Internal Medicine; Emergency Provider Family Medicine; PCP Family Medicine; Visit Provider Internal Medicine
DX: J18.9 Pneumonia, unspecified organism (principal); J44.9 Chronic obstructive pulmonary disease, unspecified; Z99.81 Dependence on supplemental oxygen; Z79.51 Long term (current) use of inhaled steroids; Z79.891 Long term (current) use of opiate analgesic; D64.9 Anemia, unspecified; Z86.718 Personal history of other venous thrombosis and embolism; I48.0 Paroxysmal atrial fibrillation; I10 Essential (primary) hypertension; I35.0 Nonrheumatic aortic (valve) stenosis; F17.210 Nicotine dependence, cigarettes, uncomplicated
CPT/HCPCS: 36415; 36600; 71045; 80048; 80053; 82805; 83605; 83880; 85025; 86140; 86403; 87040; 87426; 87449; 93005; 94640; 96365; 96367; 96372; 97161; 97165; 97530; 99285; J0456; J0696; J1650; J1956; J2543; J2930; J7050; J7512; J7626

== ENCOUNTER → 2022-07-12 13:23 | Outpatient (BNVA) | payer MEDICARE, SELFPAY | PROVIDERS: PCP Family Medicine; Visit Provider Internal Medicine Pulmonary Disease | DX: C34.11 Malignant neoplasm of upper lobe, right bronchus or lung (principal); J96.11 Chronic respiratory failure with hypoxia; J44.1 Chronic obstructive pulmonary disease with (acute) exacerbation; F17.210 Nicotine dependence, cigarettes, uncomplicated; Z86.718 Personal history of other venous thrombosis and embolism; Z99.81 Dependence on supplemental oxygen; Z79.52 Long term (current) use of systemic steroids | CPT/HCPCS: 99214 ==

== ENCOUNTER 2022-07-19 18:14 | Inpatient (IN) | payer MEDICARE, MEDICAID, SELFPAY ==
[2022-07-19] VITALS (12 sets, daily range): BP systolic 165–183; BP diastolic 74–114; PULSE 82–101; RESP 16–33; TEMP 36.6; O2SAT 88–94
--- NOTE | 2022-07-19 18:35 | W.ED.GENADLT ---
HPI - General Adult General: Chief complaint: Shortness of Breath/Dyspnea Stated complaint: SOB/ ABDOMINAL PAIN Time Seen by Provider: 07/19/22 18:19 History of Present Illness: Ms. Murphy is a 72-year-old lady with significant past medical history of COPD with chronic hypoxic respiratory failure, valvular heart disease, history of DVT on Eliquis, atrial fibrillation presenting to the emergency department for epigastric discomfort. She reports onset of symptoms shortly after breakfast this morning with a fullness in the epigastric region. She thought initially that perhaps this had to do with eating however it subsequently worsened. She does note mild associated increased work of breathing just secondary to the fullness. No chest pain. No vomiting. No changes in bowel movements. Overall course of symptoms has worsened. Intensity is moderate. No other specific changes in health, exacerbating, or alleviating factors identified. Onset (ago): hour(s) Location: abdomen Severity: moderate Quality: other Pain Consistency: constant Relieving factors: none Exacerbating factors: none Associated symptoms: Reports no associated symptoms Review of Systems General: Reports: 10 or more systems reviewed and unremarkable except in HPI and below PFSH ED PFSH: Medical History (Updated 07/21/22 @ 20:16 by Becki Harvey MD) Allergic rhinitis Asthma Chronic obstructive pulmonary disease Chronic respiratory failure with hypoxia DVT, bilateral lower limbs Resolved venous doppler 05/27 Essential (primary) hypertension -VSS; continue to monitor -continue oral antihypertensives Hypoxia Lesion of liver Mass of right parotid gland Moderate aortic stenosis -Noted moderate on echo; also noted to have EF=65%, no RWMA, G1DD, moderate pulmonary HTN, mild-moderate TR Nicotine addiction Paroxysmal A-fib Pulmonary nodule Retroperitoneal hematoma Severe depression Subcapital fracture of left femur -secondary to mechanical fall -s/p bipolar arthroplasty by Dr. Good; POD # 3 -EBL-100 mL -PT/OT evaluations appreciated -strict fall precautions, pain control as needed -bowel regimen -Sherman catheter removed Unable to function independently Surgical History H/O tubal ligation Family History Father CAD (coronary artery disease) Mother Cancer Social History Smoking and tobacco status: current every day smoker cigarettes Packs smoked per day: 1.5 Years cigarettes smoked: 50 [ Other cigarette details: Started at age 13 years] Quit status (tobacco): considering quitting Smoking risk assessment/counseling performed?: Yes Alcohol intake: never Counseling given: No Substance/Drug Use: never Counseling given: No Lives independently: Yes Household members: none Marital status: Current occupational status: retired Current gender identity: Female Physical Exam Const: COMMON NORMALS: alert GENERAL APPEARANCE: cooperative and well developed HENMT: COMMON NORMALS: normocephalic and atraumatic HEAD & SCALP: normocephalic and atraumatic Eye: COMMON NORMALS: conjunctivae normal CONJUNCTIVA: Yes conjunctivae normal SCLERA: sclerae normal Neck/C-Spine: COMMON NORMALS: supple GENERAL: Yes trachea midline Resp: COMMON NORMALS: normal respiratory effort and clear to auscultation bilaterally EFFORT & INSPECTION: Yes able to speak in complete sentences AUSCULTATION: clear to auscultation bilaterally Cardio: COMMON NORMALS: regular rate and regular rhythm RATE: regular rate RHYTHM: regular rhythm GI: COMMON NORMALS: Soft to palpation PALPATION: Yes Soft to palpation and No Tenderness to palpation present (GI) Extremity: GENERAL: Yes normal exam except as noted and No edema Neuro: COMMON NORMALS: moves all extremities SENSORIUM/ORIENTATION: Yes alert and No Orientation impaired Psych: COMMON NORMALS: mental status grossly normal and Normal thought process present THOUGHT PROCESS: Normal thought process present Course Vital Signs: Vital signs: Vital Signs Temperature 98.3 F 07/22/22 20:00 Pulse Rate 60 07/22/22 22:00 Respiratory Rate 24 H 07/22/22 20:00 Blood Pressure 123/58 07/22/22 20:00 Pulse Oximetry 91 07/22/22 20:00 Oxygen Delivery Me thod Nasal Cannula 07/22/22 20:00 Oxygen Flow Rate 6 07/22/22 20:00 Fraction of Inspir ed Oxygen 40 07/21/22 08:00 [facility] - General Adult Medical Decision Making 72-year-old lady presenting with nonspecific epigastric discomfort. Exam as above. She is nontoxic. EKG demonstrates sinus rhythm with PACs, normal axis and interval, no STEMI. Labs with no leukocytosis, normocytic anemia, normal platelet count. Metabolic panel with no significant electrolyte disturbance, renal function is preserved. Positive range 2-hour delta troponin. BNP is elevated. No UTI. Chest x-ray with similar findings to prior. CT overall similar compared to prior, no clear etiology of symptoms identified. During ED course patient treated with RT treatment, steroids for respiratory symptoms and worsening oxygen requirement as well as aspirin, patient became somewhat tachycardic intermittently and Cardizem ordered. The results of ED evaluation were discussed with the patient including plan for admission due to requirement for level of care not available if discharged to prevent significant worsening/deterioration. Patient agreeable with plan. Discussed with hospitalist service who was agreeable to admit patient. Medical Records I reviewed the patient's medical records. Lab Data I reviewed the patient's lab results. 07/22/22 12:00 07/22/22 12:00 Radiology Impressions Abdomen/Pelvis CT 07/19/22 20:40 IMPRESSION: 1. Stable mild interstitial pulmonary edema in the visualized lower lungs with a small right pleural effusion and right lower lobe compressive atelectasis. 2. Interval development of moderate body wall edema. 3. Stable indeterminate foci in the liver compared with 05/15/2022. 4. Stable dominant follicle in the right ovary. 5. Stable 4.0 x 3.8 cm infrarenal abdominal aortic aneurysm. Large amount of mural thrombus in the aneurysm. No evidence for aneurysm rupture. 6. Incidental/nonacute findings are listed in the report. Chest X-Ray 07/21/22 06:15 Impression: 1. Increase in pulmonary vascular congestion. 2. No change in right pleural effusion, cardiomegaly, hyperinflation and atherosclerosis. Chest CTA 07/21/22 13:44 IMPRESSION: 1. Negative CT angiogram of the chest. No evidence of acute pulmonary embolism. 2. COPD with diffuse emphysematous changes. 3. Enlarging irregular consolidative density posterior segment right upper lobe that may be infectious/inflammatory in nature but needs follow-up for surveillance. 4. Enlarging nodular density anterior segment right upper lobe that also needs continued surveillance for clarification. 5. Interval development of small-moderate size right pleural effusion possibly cardiogenic in nature. COMMENTS: In the absence of a history or active diagnosis of lung cancer, it is recommended that this patient with emphysema be evaluated for enrollment in a low dose CT lung cancer screening program. Laboratory Results WBC 6.2 10^3/uL (4.0-10.0) 07/19/22 19: RBC 4.01 10^6/uL (4.1-5.3) L 07/19/22 19: Hgb 10.3 g/dL (11.5-15.3) L 07/19/22 19: Hct 34.7 % (37.0-47.0) L 07/19/22 19: MCV 86.5 fl (81-99) 07/19/22 19: MCH 25.7 pg (28.0-34.0) L 07/19/22 19: MCHC 29.7 g/dL (30.0-36.0) L 07/19/22: RDW 15.7 % (12.1-15.1) H 07/19/22: Plt Count 247 10^3/cmm (130-400) 07/19/22: MPV 9.6 fL (7.4-10.4) 07/19/22 19: Neut % (Auto) 78.1 % 07/19/22 19: Lymph % (Auto) 12.2 % 07/19/22 19: [place] % (Auto) 8.8 % 07/19/22 19: Eos % (Auto) 0.0 % 07/19/22 19: Baso % (Auto) 0.3 % 07/19/22: Neut # (Auto) 4.85 10^3/uL (1.8-7.7) 07/19/22 19: Lymph # (Auto) 0.8 10^3/uL (0.8-4.8) 07/19/22 19: [place] # (Auto) 0.6 10^3/uL (0.2-0.9) 07/19/22 19: Eos # (Auto) 0.0 10^3/uL (0.0-0.8) 07/19/22 19: Baso # (Auto) 0.0 10^3/uL (0.0-0.1) 07/19/22 19:24 Nucleated RBC % (auto) 0 % 07/19/22: Nucleated RBCs # 0.0 /100WBC 07/19/22 19: Sodium 136 mmol/L (136-145) 07/19/22 19:24 Potassium 3.8 mmol/L (3.5-5.1) 07/19/22 19:24 Chloride 97 mmol/L (98-107) L 07/19/22 19:24 Carbon Dioxide 31 mmol/L (22-29) H 07/19/22 19:24 Anion Gap 11.8 (5-19) 07/19/22 19:24 BUN 13 mg/dL (8-23) 07/19/22 19:24 Creatinine 0.4 mg/dL (0.5-0.9) L 07/19/22 19:24 GFR Calculation Not Reportable 07/19/22 19:24 Glucose 120 mg/dL (65-115) H 07/19/22 19:24 Calculated Osmolality 283 mOsm/kg (285-295) L 07/19/22 19:24 Lactic Acid 1.8 mmol/L (0.5-2.2) 07/19/22 19:24 Calcium 8.9 mg/dL (8.5-10.5) 07/19/22 19:24 Total Bilirubin 0.3 mg/dL (0.15-1.2) 07/19/22 19:24 AST 29 U/L (0-32) 07/19/22 19:24 ALT 31 U/L (0-33) 07/19/22 19:24 Alkaline Phosphatase 95 U/L (35-105) 07/19/22 19:24 Troponin T Baseline 24 ng/L (0-10) H 07/19/22 19:24 Troponin T 120 Minute 34.28 ng/L (0-10) H 07/19/22 21:30 Delta Troponin T 10.28 ABS# (0-10) H* 07/19/22 21:30 NT-Pro-B Natriuret Pep 7471 pg/mL (0-125) H 07/19/22 19:24 Total Protein 6.3 g/dL (6.6-8.7) L 07/19/22 19:24 Albumin 3.8 g/dL (3.5-5.2) 07/19/22 19:24 Globulin 2.5 g/dL (1.3-4.6) 07/19/22 19:24 Lipase 17 U/L (13-60) 07/19/22 19:24 Discharge Plan Discharge Patient Disposition: Placed in Observation Admit Provider: Paulo Tran Clinical Impression: Acute non-ST elevation myocardial infarction (NSTEMI) Coding Level of Care Code ED Estimating Manager for Nan Chaudhary
--- NOTE | 2022-07-19 18:44 | XRR_ITS ---
PROCEDURE INFORMATION: Exam: XR Chest Exam date and time: 07/19/2022 7:03 PM Age: 72 years old Clinical indication: Shortness of breath; Additional info: SOB, epigastric fullness TECHNIQUE: Imaging protocol: Radiologic exam of the chest. Views: 1 view. COMPARISON: CR (CHEST, ) 07/03/2022 6:20 AM FINDINGS: Lungs: Stable mild interstitial pulmonary edema with right middle and right lower lobe compressive atelectasis. Stable mild hyperinflation of the lungs. Pleural spaces: Stable small right pleural effusion. No pneumothorax. Heart/Mediastinum: Stable mild enlargement of the cardiac silhouette. Mediastinal contours are unremarkable. Vasculature: Vascular calcifications in the aorta. Bones/joints: Unremarkable for age. XR/XR chest 1V portable [id number] IMPRESSION: 1. Stable mild interstitial pulmonary edema with right middle and right lower lobe compressive atelectasis. 2. Incidental/nonacute findings are listed in the report.
--- NOTE | 2022-07-19 19:00 | ECG_ITS ---
[facility] Test Date: 2022-07-19 Pat Name: Lisset Murphy Department: Room: Gender: Female Card Feeder: : 1950 Requested By: Damián Foley Order Number: [id number] Bette MD: Octaviano Castro M.D. Measurements Intervals [place] Rate: 93 P: -35 CA: 153 QRS: 62 QRSD: 83 T: 9 QT: 372 QTc: 463 Interpretive Statements SINUS RHYTHM WITH FREQUENT SUPRAVENTRICULAR PREMATURE COMPLEXES Compared to ECG 07/03/2022 06:13:43 Myocardial infarct finding no longer present Electronically Signed On 07-20-2022 14:50:16 CDT by Octaviano Castro M.D. [email or web address] [id number]
[2022-07-19] MEDS: ipratropium-albuterol 3 mL Neb INHALATION (19:31)
[2022-07-19 19:46] LABS: Basophils % 0.3 %; Hematocrit 34.7 % (37.0-47.0); Hemoglobin 10.3 g/dL (11.5-15.3); Lymphocytes # 0.8 10^3/uL (0.8-4.8); Lymphocytes % 12.2 %; Mean Corpuscular HGB Conc 29.7 g/dL (30.0-36.0); Mean Corpuscular Hemoglobin 25.7 pg (28.0-34.0); Mean Corpuscular Volume 86.5 fl (81-99); Mean Platelet Volume 9.6 fL (7.4-10.4); Monocytes # 0.6 10^3/uL (0.2-0.9); Monocytes % 8.8 %; Neutrophils # 4.85 10^3/uL (1.8-7.7); Neutrophils % 78.1 %; Nucleated Red Blood Cells % 0 %; Platelet Count 247 10^3/cmm (130-400); Red Blood Count 4.01 10^6/uL (4.1-5.3); Red Cell Distribution Width 15.7 % (12.1-15.1); White Blood Count 6.2 10^3/uL (4.0-10.0)
[2022-07-19 20:09] LABS: Lactic Sepsis W/Reflex 1.8 mmol/L (0.5-2.2)
[2022-07-19 20:16] LABS: Alanine Aminotransferase 31 U/L (0-33); Albumin Level 3.8 g/dL (3.5-5.2); Alkaline Phosphatase 95 U/L (35-105); Anion Gap 11.8 (5-19); Aspartate Amino Transferase 29 U/L (0-32); Blood Urea Nitrogen 13 mg/dL (8-23); Calcium 8.9 mg/dL (8.5-10.5); Carbon Dioxide 31 mmol/L (22-29); Chloride 97 mmol/L (98-107); Globulin 2.5 g/dL (1.3-4.6); Glucose 120 mg/dL (65-115); Lipase 17 U/L (13-60); Osmolality Calculated 283 mOsm/kg (285-295); Potassium 3.8 mmol/L (3.5-5.1); Sodium 136 mmol/L (136-145); Total Bilirubin 0.3 mg/dL (0.15-1.2); Total Protein 6.3 g/dL (6.6-8.7)
--- NOTE | 2022-07-19 20:40 | CTR_ITS ---
PROCEDURE INFORMATION: Exam: CT Abdomen And Pelvis With Contrast Exam date and time: 07/19/2022 9:12 PM Age: 72 years old Clinical indication: Bloating and constipation; Additional info: Epigastric fullness/discomfort TECHNIQUE: Imaging protocol: Computed tomography of the abdomen and pelvis with contrast. Sagittal and coronal reformatted images were created and reviewed. Radiation optimization: All CT scans at this facility use at least one of these dose optimization techniques: automated exposure control; mA and/or kV adjustment per patient size (includes targeted exams where dose is matched to clinical indication); or iterative reconstruction. Contrast material: OMNI 350; Contrast volume: 100 ml; Contrast route: INTRAVENOUS (IV); REPORTING DATA: Count of CT and Cardiac NM exams in prior 12 months: This patient has received 7 known CTs and 0 known cardiac nuclear medicine studies in the 12 months prior to the current study. COMPARISON: 1. CT abdomen pelvis w con* [id number] 05/15/2022 6:45 PM 2. CR (CHEST, ) 07/19/2022 7:03 PM RADIATION DOSE METRICS: Total DLP (mGy-cm): 588.61 FINDINGS: Lungs: Stable centrilobular emphysematous changes in the visualized lungs. Stable mild interstitial pulmonary edema in the visualized lower lungs. Stable compressive atelectasis in the right lower lobe. Pleural spaces: Stable small right pleural effusion. Heart: Stable moderate enlargement of the visualized portions of the heart. Coronary arteries: Mild atherosclerotic calcification in the visualized coronary arteries. Liver: Few hepatic cysts in the liver are stable, the largest in the left lobe measures 1.1 cm (series 4, image 23). Multiple stable hypodense foci in the liver that cannot be further characterized on the current examination. The largest measures 6.7 mm (series 4, image 21). Gallbladder and bile ducts: The gallbladder is unremarkable. No biliary ductal dilatation. Pancreas: The pancreas is unremarkable. No pancreatic ductal dilatation. Spleen: Multiple calcified granulomas in the spleen. Adrenal glands: The right and left adrenal glands are unremarkable. Kidneys and ureters: Stable subcentimeter hypodense foci in both right and left kidneys that are too small to characterize, however likely represent small cysts. Stable scarring in the left kidney. The right and left ureters are unremarkable. Stomach and bowel: The stomach is collapsed, which can limit evaluation. No focal abnormality in the stomach otherwise. No acute abnormality in the small bowel. No acute abnormality in the colon. Appendix: The appendix is visualized and is unremarkable. No findings to suggest acute appendicitis. Intraperitoneal space: No free intraperitoneal air. No ascites. No loculated fluid collections to suggest an abscess. Vasculature: Stable extensive atherosclerotic calcifications in the visualized arteries. Stable 4.0 x 3.8 cm infrarenal abdominal aortic aneurysm (series 4, image 35). Large amount of mural thrombus in the aneurysm. No evidence for aneurysm rupture. The aneurysm does not involve the iliac arteries. No evidence for aortic dissection. Hepatic veins are poorly opacified and not well-visualized. Portal veins, splenic vein, and SMV are patent. Lymph nodes: No lymphadenopathy. Urinary bladder: The bladder is unremarkable. Reproductive: The uterus is unremarkable. Stable 2.1 x 1.7 cm dominant follicle in the right ovary (series 4, image 58). The left ovary is unremarkable. Bones/joints: Bones are diffusely osteopenic. Deformity of the right femoral neck consistent with an old, healed fracture. The patient has had a previous left hip arthroplasty. Moderate degenerative change at the right hip. Multilevel degenerative changes of varying severity in the visualized spine. Osseous findings are stable. Soft tissues: Interval development of moderate body wall edema. CT/CT abdomen pelvis w con* [id number] IMPRESSION: 1. Stable mild interstitial pulmonary edema in the visualized lower lungs with a small right pleural effusion and right lower lobe compressive atelectasis. 2. Interval development of moderate body wall edema. 3. Stable indeterminate foci in the liver compared with 05/15/2022. 4. Stable dominant follicle in the right ovary. 5. Stable 4.0 x 3.8 cm infrarenal abdominal aortic aneurysm. Large amount of mural thrombus in the aneurysm. No evidence for aneurysm rupture. 6. Incidental/nonacute findings are listed in the report.
[2022-07-19 20:54] LABS: Troponin(5th) Baseline 24 ng/L (0-10)
[2022-07-19 20:57] LABS: NT Pro B Type Natriuretic Pept 7471 pg/mL (0-125)
[2022-07-19] MEDS: iohexol 350 mg/mL 500 mL Btl (per mL) IV (21:18)
[2022-07-19 22:08] LABS: Troponin 5 2HR 34.28 ng/L (0-10)
[2022-07-19 22:11] LABS: Troponin 5 2HR Delta 10.28 ABS# (0-10)
[2022-07-19] MEDS: dilTIAZem 5 mg/mL SDV 5 mL 15 MG IVP (22:40)
[2022-07-19] MEDS: aspirin 81 mg Chew Tablet 324 MG PO (22:48)
--- NOTE | 2022-07-19 22:58 | PM.HP ---
Providers/Chief Complaint Admitting Physician: Paulo Tran MD Primary Care Provider: Thompson Zuluaga MD Chief Complaint: SOB/ ABDOMINAL PAIN History of Present Illness Lisset Murphy is a 72 year old female with a past medical history of COPD Gold class D, on 5 L, history of malignant pulmonary nodule, asthma, history of DVT, hypertension, moderate aortic stenosis, moderate pulm hypertension, smoker but quit back in May, paroxysmal A-fib, who presents to [facility] due to chest heaviness. She tells me today she started develop chest heaviness under her breast bilaterally, nonradiating, no nausea, no vomiting, no lightheadedness, dizziness she does feel short of breath, she is on 5 L, she recently quit smoking in May, she tells me that the breast heaviness progressed throughout the day so she came to the emergency room for evaluation. Currently chest pain-free, denies shortness of breath currently Review of Systems Const: Denies: fever(s) or chills Eyes: Denies: change in vision Card: Reports: chest pain, edema and dyspnea on exertion; Denies: palpitations Resp: Reports: dyspnea; Denies: productive cough or non-productive cough GI: Denies: abdominal pain : Denies: flank pain or difficulty voiding Skin/Breast: Denies: rash Neuro: Denies: headache(s) or weakness in extremities Medications/Allergies Home Medications Medication Instructions Recorded Confirmed Last Taken Type albuterol sulfate 2.5 mg/3 mL 2.5 mg (3 mL) inhalation Q6H PRN 04/22/21 07/14/22 01/25/22 Rx (0.083 %) solution for nebulization bronchospasm #180 mL diltiazem HCl 120 mg tablet 120 mg PO BID 06/16/21 07/14/22 05/10/22 History alprazolam 0.25 mg tablet 0.25 mg PO BEDTIME 01/25/22 07/14/22 Unknown History temazepam 15 mg capsule 15 mg PO BEDTIME PRN sleep 01/25/22 07/14/22 Unknown History Home oxygen #1 ea 02/02/22 07/14/22 Unknown Rx fluticasone propionate 50 1 spray intranasal Q12H #16 grams 03/09/22 07/14/22 Unknown Rx mcg/actuation nasal spray,suspension hydrocodone 5 mg-acetaminophen 325 1 tab PO Q6H PRN pain #14 tabs 05/05/22 07/14/22 05/10/22 Rx mg tablet prednisone 5 mg tablet 5 mg PO DAILY 05/10/22 07/14/22 05/09/22 History furosemide 20 mg tablet 40 mg PO QAM 30 days #30 tabs 05/27/22 07/14/22 05/09/22 Rx acetaminophen 500 mg capsule 1,000 mg PO Q6H PRN Pain 07/03/22 07/14/22 Unknown History docusate sodium 100 mg capsule 200 mg PO BID PRN Constipation 07/03/22 07/14/22 Unknown History escitalopram oxalate 10 mg tablet 10 mg PO DAILY 07/03/22 07/14/22 Unknown History (Lexapro) ferrous sulfate 325 mg (65 mg 325 mg PO BID 07/03/22 07/14/22 Unknown History iron) tablet loperamide 2 mg capsule 4 mg PO BID PRN Diarrhea 07/03/22 07/14/22 Unknown History metoprolol tartrate 25 mg tablet 12.5 mg PO BID 07/03/22 07/14/22 Unknown History mirtazapine 15 mg tablet 15 mg PO DAILY 07/03/22 07/14/22 Unknown History pantoprazole 40 mg tablet,delayed 40 mg PO DAILY 07/03/22 07/14/22 Unknown History release polyethylene glycol 3350 17 17 g PO DAILY PRN Constipation 07/03/22 07/14/22 Unknown History gram/dose oral powder (Miralax) temazepam 15 mg capsule 30 mg PO BEDTIME PRN Insomnia 07/03/22 07/14/22 Unknown History albuterol sulfate 90 mcg/actuation 2 puff inhalation Q6H PRN 07/12/22 07/14/22 Unknown Rx aerosol inhaler (ProAir HFA) Shortness Of Breath #8.5 grams budesonide 0.5 mg/2 mL suspension 0.5 mg (2 mL) inhalation BID #120 07/12/22 07/14/22 Unknown Rx for nebulization mL formoterol fumarate 20 mcg/2 mL 2 ml inhalation BID #120 mL 07/12/22 07/14/22 Unknown Rx solution for nebulization (Perforomist) revefenacin 175 mcg/3 mL solution 175 mcg (3 mL) inhalation DAILY 07/12/22 07/14/22 Unknown Rx for nebulization (Yupelri) #90 mL Allergies Allergy/AdvReac Type Severity Reaction Status Date / Time shrimp Allergy ADR-Nausea Uncoded 07/14/22 14:46 PFSH Acute PFSH: Medical History Allergic rhinitis Asthma Chronic obstructive pulmonary disease COPD (chronic obstructive pulmonary disease) DVT (deep venous thrombosis) Essential (primary) hypertension -VSS; continue to monitor -continue oral antihypertensives Hypoxia Moderate aortic stenosis -Noted moderate on echo; also noted to have EF=65%, no RWMA, G1DD, moderate pulmonary HTN, mild-moderate TR Nicotine addiction Paroxysmal A-fib Pulmonary nodule Subcapital fracture of left femur -secondary to mechanical fall -s/p bipolar arthroplasty by Dr. Good; POD # 3 -EBL-100 mL -PT/OT evaluations appreciated -strict fall precautions, pain control as needed -bowel regimen -Sherman catheter removed Surgical History H/O tubal ligation Family History Father CAD (coronary artery disease) Mother Cancer Social History Smoking and tobacco status: current every day smoker cigarettes Packs smoked per day: 1.5 Years cigarettes smoked: 50 [ Other cigarette details: Started at age 13 years] Quit status (tobacco): considering quitting Smoking risk assessment/counseling performed?: Yes Alcohol intake: never Counseling given: No Counseling given: No Lives independently: Yes Household members: none Marital status: Current occupational status: retired Current gender identity: Female Vitals/I&O/Wt Last Vital Signs Temp 97.8 F 07/19/22 18:34 Pulse 101 H 07/19/22 22:24 Resp 18 07/19/22 22:24 BP 183/114 07/19/22 21:44 Pulse Ox 88 L 07/19/22 22:24 O2 Del Method Nasal Cannula 07/19/22 22:24 O2 Flow Rate 5 07/19/22 22:24 Weight last 48 hrs Weight 68.492 kg Physical Exam Const: COMMON NORMALS: no acute distress and patient oriented x3 HENMT: COMMON NORMALS: normocephalic HEAD & SCALP: normocephalic Eye: COMMON NORMALS: Equal, round and reactive pupils present Neck/C-Spine: COMMON NORMALS: no JVD Lymph: LYMPHATIC: no lymphadenopathy noted Resp: COMMON NORMALS: normal respiratory effort, No retractions, No use of accessory muscles and clear to auscultation bilaterally AUSCULTATION: crackles Cardio: COMMON NORMALS: no JVD, regular rate, regular rhythm, S1 normal heart sound present and S2 normal heart sound present RATE: regular rate RHYTHM: regular rhythm HEART SOUNDS: S1 normal heart sound present and S2 normal heart sound present GI: COMMON NORMALS: Normal to inspection, nondistended, normoactive bowel sounds present, Soft to palpation and non-tender PALPATION: Yes Soft to palpation : COMMON NORMALS: Yes no CVA tenderness Extremity: OTHER: 2+ pitting edema Neuro: COMMON NORMALS: patient oriented x3, CN's II-XII intact bilaterally, moves all extremities and no focal motor deficits Psych: COMMON NORMALS: mental status grossly normal Data 07/19/22 19:24 07/19/22 19:24 A&P Assessment and plan (1) Acute non-ST elevation myocardial infarction (NSTEMI): (2) CHF exacerbation: (3) Paroxysmal A-fib: (4) AAA (abdominal aortic aneurysm): (5) Chronic respiratory failure with hypoxia: (6) Chronic obstructive pulmonary disease: (7) DVT, bilateral lower limbs: Qualifiers: Affected thrombotic vein of extremity: unspecified vein of extremity Chronicity: unspecified Qualified Code(s): I82.403 - Acute embolism and thrombosis of unspecified deep veins of lower extremity, bilateral (8) Pulmonary edema: Plan Chest heaviness NSTEMI -Serial EKGs, serial troponins, telemetry monitoring -Aspirin, statin, beta-lexi -Cardiac echo -Full code -Lovenox for DVT prophylaxis CHF exacerbation, pulm edema, chest x-ray shows pulm vascular congestion, elevated BNP -Likely combination of systolic diastolic -Place Sherman catheter -Fluid restrictions 1200 cc -Lasix 40 IV twice daily -Cardiac echo as above History of COPD, on 5 L -Not in exacerbation -DuoNebs as needed History of paroxysmal atrial fibrillation, EKG shows sinus rhythm, no acute ST-T wave changes Abdominal arctic aneurysm, 4 x 3.8 cm, with a large amount of mural thrombus in the aneurysm, no evidence of rupture Attestations Medical Necessity Statement*: Patient requires a position, inpatient, greater than 2 midnights, for chest heaviness, NSTEMI, CHF exacerbation Diagnoses Acute non-ST elevation myocardial infarction (NSTEMI) I21.4 CHF exacerbation I50.9 Paroxysmal A-fib I48.0 AAA (abdominal aortic aneurysm) I71.40 Chronic respiratory failure with hypoxia J96.11 Chronic obstructive pulmonary disease J44.9 DVT, bilateral lower limbs I82.403 Affected thrombotic vein of extremity: unspecified vein of extremity Chronicity: unspecified Pulmonary edema J81.1
[2022-07-19 23:49] LABS: Add Urine Microscopic? NO; Charge for UA Resulting for Rev
[2022-07-19 23:54] LABS: Bilirubin Urine Neg (Negative); Blood Urine Neg (Negative); Glucose Urine UA Norm (Normal); Ketones Urine Negative (Negative); Leukocyte Esterase Urine Negative (Negative); Nitrate Urine Negative (Negative); Protein Urine Neg (Negative); Sulfosalicylic Acid Urine Negative (Negative); Urine Appearance Clear (CLEAR); Urine Color Yellow (Yellow); Urobilinogen Urine Norm (Negative); pH Urine 8 (5-7)
[2022-07-20] VITALS (13 sets, daily range): BP systolic 134–167; BP diastolic 56–89; PULSE 52–90; RESP 16–28; TEMP 36.6–37.1; O2SAT 91–96
[2022-07-20] MEDS: enoxaparin 40 mg/0.4 mL Syringe SUBCUT ×2 (00:23→20:30)
[2022-07-20] MEDS: FUROsemide 10 mg/mL SDV 4mL 40 MG IVP ×2 (00:23→09:07)
--- NOTE | 2022-07-20 00:45 | ECG_ITS ---
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 Measurements Intervals [address] Rate: 89 P: -44 [place]: 151 QRS: 58 QRSD: 75 T: 9 QT: 373 QTc: 456 Interpretive Statements SINUS RHYTHM WITH OCCASIONAL SUPRAVENTRICULAR PREMATURE COMPLEXES POSSIBLE LEFT ATRIAL ENLARGEMENT [-0.1mV P-WAVE IN V1/V2] MODERATE ST DEPRESSION [0.05+ mV ST DEPRESSION] Compared to ECG 07/19/2022 19:00:33 ST (T wave) deviation now present Electronically Signed On 07-20-2022 15:07:38 CDT by Octaviano Castro M.D. [id number]
[2022-07-20 02:32] LABS: Hematocrit 35.7 % (37.0-47.0); Hemoglobin 10.6 g/dL (11.5-15.3); Lymphocytes # 0.3 10^3/uL (0.8-4.8); Mean Corpuscular HGB Conc 29.7 g/dL (30.0-36.0); Mean Corpuscular Hemoglobin 25.9 pg (28.0-34.0); Mean Corpuscular Volume 87.3 fl (81-99); Mean Platelet Volume 9.6 fL (7.4-10.4); Monocytes # 0.1 10^3/uL (0.2-0.9); Monocytes % 1.2 %; Neutrophils # 4.56 10^3/uL (1.8-7.7); Neutrophils % 91.8 %; Nucleated Red Blood Cells % 0 %; Platelet Count 255 10^3/cmm (130-400); Red Blood Count 4.09 10^6/uL (4.1-5.3); Red Cell Distribution Width 15.7 % (12.1-15.1)
[2022-07-20 03:00] LABS: Troponin 5 6HR 37.73 ng/L (0-10)
[2022-07-20 03:07] LABS: Anion Gap 12.4 (5-19); Blood Urea Nitrogen 10 mg/dL (8-23); Calcium 8.6 mg/dL (8.5-10.5); Carbon Dioxide 31 mmol/L (22-29); Chloride 97 mmol/L (98-107); Glucose 189 mg/dL (65-115); Magnesium 1.9 mg/dL (1.7-2.3); NT Pro B Type Natriuretic Pept 8828 pg/mL (0-125); Osmolality Calculated 288 mOsm/kg (285-295); Potassium 3.4 mmol/L (3.5-5.1); Sodium 137 mmol/L (136-145); Thyroid Stimulating Hormone 0.34 uIU/mL (0.27-4.20); Troponin 5 6HR Delta 13.73 ng/L (0-12)
--- NOTE | 2022-07-20 03:55 | PC.NURSE ---
Spoke with regarding patients left buttock pressure ulcer. Obtained wound care orders.
[2022-07-20] MEDS: dilTIAZem 60 mg Tablet 120 MG PO ×2 (07:38→17:51)
[2022-07-20] MEDS: aspirin 81 mg EC Tablet PO (07:39)
[2022-07-20] MEDS: metoprolol tartrate 25 mg Tablet 12.5 MG PO (07:39)
[2022-07-20] MEDS: escitalopram 10 mg Tablet PO (07:39)
[2022-07-20] MEDS: ferrous sulfate EC 325 mg Tablet PO ×2 (07:39→17:51)
[2022-07-20] MEDS: pantoprazole DR 40 mg Tablet PO (07:40)
[2022-07-20] MEDS: mirtazapine 15 mg Tablet PO (07:40)
[2022-07-20] MEDS: predniSONE 5 mg Tablet PO (07:40)
[2022-07-20] MEDS: docusate sodium 100 mg Capsule 200 MG PO (07:47)
[2022-07-20] MEDS: budesonide 0.5 mg/2 mL Neb INHALATION ×2 (08:37→20:34)
[2022-07-20] MEDS: ipratropium-albuterol 3 mL Neb INHALATION ×4 (08:37→20:34)
[2022-07-20] MEDS: potassium chloride ER 20 mEq Tablet 40 MEQ PO (09:07)
[2022-07-20 10:03] LABS: Chol HDL Ratio 2.96 mg/dL (0.0-4.40); Cholesterol 219 mg/dL (0-200); HDL Cholesterol 74 mg/dL (60-100); LDL Cholesterol Calculated 136 mg/dL (50-129); Triglycerides 44 mg/dL (0-150); VLDL Cholestrol Calculation 9 mg/dL (0-30)
[2022-07-20 10:08] LABS: Estmated Average Glucose 111; Hemoglobin A1C 5.5 % (4.0-6.0)
--- NOTE | 2022-07-20 10:19 | PC.CHAP ---
Pastoral Care Encounter/Spiritual Assessment Type of Contact [] Declined wood getter visit [] Patient/Family/Request visit [] Outpatient visit [] Follow-up visit [] Physician referral [] Code/Alert [x] Routine visit [] Staff referral [] Actively dying [] Patient sleeping [] Family support [] [] Out of room [] Palliative care [] [] Receiving care in room [] Pre-surgical visit [] Trauma [] Long length of stay [] ICU visit [] Other: Relational/Emotional Strength [x] Patient feels connected with others/family/visitors/staff [] Distress [] Loneliness/isolation [] Abandonment Spirituality of Patient [x] Person of [place] [x] Attends Jewish of their [place] [x] Believes in Prayer [] Reads Bible or Jew materials [] There are Spiritual issues to be addressed 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 Interventions [x] Prayer [x] Active listening [] Non-anxious presence [x] Spiritual/emotional support [] Crisis/trauma care [] Spiritual counseling [] Bereavement support [] Provided bereavement packet [] Provided Bible/devotional materials [] Provided toy/stuffed animal, coloring book to patient or family member [] Provided Communion [] Anointing/[place] [] Salvation [x] Completed spiritual assessment [] Other: Impact on Illness or Injury [] Angry [] Fearful [] Anxious [] Often cries [] Exhaustion [] Unable to work [] Unable to attend taoism [] Unable to walk/stand [] Unable to read [] Unable to drive [] Unable to eat/drink [] Unable to sleep [] Unable to be with family [] Patient intubated [] Other: Summary Time spent with patient 5 min
--- NOTE | 2022-07-20 13:16 | PC.PT ---
Pt has had no significant change since last seen on 07/03/22 and is currently at [facility]. Pt was instructed and given HEP at that time and has not made improvements. Pt continues to require assistance at [facility] with transfers and is primarily in a w/c. Pt was given pursed lip breathing exercises to practice to help improve her lung function and capacity. Pt stated body movements and transfers give her anxiety making it difficulty for her to breathe. Pt educated again about HEP and importance of sitting up in chair to help reduce chances of getting pneumonia. Pt refused to try and sit up in chair despite encouragement. Pt noted increased SOA after performing pursed lip breathing exercises with therapist and HEP.
--- NOTE | 2022-07-20 15:17 | P.PN_ITS ---
Subjective Subjective: Admitted overnight. H&P and labs appreciated. Examination laying comfortably in bed. AOx3. States feeling a lot better. Requiring up to 4 L to maintain saturation over 90%. Denies any nausea, vomiting, headache. States chest heaviness is resolved. Overall has put out around 2 L of urine overnight IV Lasix. Has remained hemodynamically stable and afebrile. Vitals/I&O/Wt Last Vital Signs Temp 97.8 F 07/20/22 07:32 Pulse 72 07/20/22 12:00 Resp 22 H 07/20/22 12:00 BP 134/56 07/20/22 12:00 Pulse Ox 91 07/20/22 12:00 O2 Del Method Nasal Cannula 07/20/22 12:00 O2 Flow Rate 4 07/20/22 12:00 07/20/22 07/20/22 07/20/22 06:59 14:59 22:59 Intake Total 360 / 360 Output Total 2150 / 2150 900 / 900 Balance -2150 / -2150 -540 / -540 Weight last 48 hrs Weight 68.492 kg Physical Exam Const: COMMON NORMALS: no acute distress and patient oriented x3 HENMT: COMMON NORMALS: normocephalic HEAD & SCALP: normocephalic Eye: COMMON NORMALS: Equal, round and reactive pupils present PUPIL: Yes Eq ual, round and reactive pupils present Neck/C-Spine: COMMON NORMALS: no JVD Lymph: LYMPHATIC: no lymphadenopathy noted Resp: COMMON NORMALS: normal respiratory effort, No retractions, No use of accessory muscles and clear to auscultation bilaterally AUSCULTATION: clear to auscultation bilaterally and crackles Cardio: COMMON NORMALS: no JVD, regular rate, regular rhythm, S1 normal heart sound present and S2 normal heart sound present RATE: regular rate RHYTHM: regular rhythm HEART SOUNDS: S1 normal heart sound present and S2 normal heart sound present GI: COMMON NORMALS: Normal to inspection, nondistended, normoactive bowel sounds present, Soft to palpation and non-tender PALPATION: Yes Soft to palpation : COMMON NORMALS: Yes no CVA tenderness BLADDER/KIDNEY EXAM: Yes no CVA tenderness Back/Pelvis: COMMON NORMALS: no CVA tenderness Extremity: OTHER: Mild edema, right more than left. Neuro: COMMON NORMALS: patient oriented x3, CN's II-XII intact bilaterally, moves all extremities and no focal motor deficits Psych: COMMON NORMALS: mental status grossly normal Urinary Catheter Management: Sherman: Cath Placed During This Visit: yes Reason for Continuing Indwelling Catheter: Acute Urinary Retention or Obstruction Urinary Catheter Date of Insertion: 07/19/22 Urinary Catheter Time of Insertion: 22:45 Data 07/20/22 02:12 07/20/22 02:12 A&P Assessment and plan (1) Acute non-ST elevation myocardial infarction (NSTEMI): (2) CHF exacerbation: (3) Paroxysmal A-fib: (4) AAA (abdominal aortic aneurysm): (5) Chronic respiratory failure with hypoxia: (6) Chronic obstructive pulmonary disease: (7) DVT, bilateral lower limbs: Qualifiers: Affected thrombotic vein of extremity: unspecified vein of extremity Chronicity: unspecified Qualified Code(s): I82.403 - Acute embolism and thrombosis of unspecified deep veins of lower extremity, bilateral (8) Pulmonary edema: Plan Hypoxia: In setting of congestive heart failure. Appreciate chest x-ray and elevated BNP. Echocardiogram done shows an EF of 55 to 60% with grade 1 diastolic dysfunction, mild aortic stenosis, RVSP of 40 to 45 mmHg consistent with mild pulmonary hypertension and mild TR. No regional wall motion abnormality. Overall around 3 L negative since admission. IV Lasix 40 mg daily. Fluid restriction to less than 1500 cc. Strict input of charting, daily weights. Continue Sherman catheterization for now. Does have history of COPD. No exacerbation. DuoNebs every 6 hour, budesonide twice daily. Hold off on IV steroids. Wean off oxygen supplementation keeping saturation over 88%. CAD: No past history. But cannot rule out unstable angina given symptomatology. Troponin cycled negative. Check A1c, lipid panel. Continue with aspirin, statin, beta-lexi. No regional wall motion normality on echocardiogram. We will plan for Lexiscan stress test in a.m. if more euvolemic. Discussed care plan in detail with patient in detail regarding possibility of Lexiscan stress test. At first patient was hesitant but after discussing in detail she is agreeable. She is still not sure if she will want to go for cardiac angiogram but is requesting for Lexiscan to be done while she thinks of cardiac angiogram. Abdominal arctic aneurysm, 4 x 3.8 cm, with a large amount of mural thrombus in the aneurysm, no evidence of rupture. Proxysmal afib. CODE STATUS: DNR/DNI. Protonix for PUD prophylaxis Lovenox for DVT prophylaxis Discharge planning: Plan to discharge to SNF back once medically stable. Attestations Medical Necessity Statement*: Partial hospitalization for management of hypoxia in setting of congestive heart failure, unstable angina Diagnoses Acute non-ST elevation myocardial infarction (NSTEMI) I21.4 CHF exacerbation I50.9 Paroxysmal A-fib I48.0 AAA (abdominal aortic aneurysm) I71.40 Chronic respiratory failure with hypoxia J96.11 Chronic obstructive pulmonary disease J44.9 DVT, bilateral lower limbs I82.403 Affected thrombotic vein of extremity: unspecified vein of extremity Chronicity: unspecified Pulmonary edema J81.1
--- NOTE | 2022-07-20 15:28 | ECG_ITS ---
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 Interpretive Statements NAME OF STUDY: LEXISCAN SESTAMIBI STRESS TEST INDICATION: [UNSTABLE ANGINA, ] Procedure: At the baseline, the blood pressure was 149/52 mmHg with a heart rate of 76 bpm. The electrocardiogram showed normal sinus rhythm, normal axis with normal ST and T's. The Lexiscan was infused over a period of 20 seconds. A total of 0.4 mg of Lexiscan was infused. The stress phase was continued for a total of 5 minutes. Heart rate was at the end of stress phase was 86 bpm and a blood pressure of 150/62mmHg. The EKG at the peak infusion revealed normal sinus rhythm with no significant ST-T wave changes. Sestamibi was injected 20 seconds after the Lexiscan infusion. Blood pressure at the end of recovery phase was 155/62 mmHg with a heart rate of 81 bpm. Conclusion: 1. Normal EKG response to Lexiscan infusion 2. No Lexiscan induced chest pain or cardiac arrhythmia. 3. Normal blood pressure and heart rate response. 4. Sestamibi/sestamibi perfusion scan pending; see separate report. Electronically Signed On 08-09-2022 10:34:26 CDT by Octaviano Castro M.D. [id number]
[2022-07-20] MEDS: metoprolol tartrate 25 mg Tablet PO (17:51)
[2022-07-20] MEDS: atorvastatin 40 mg Tablet PO (20:30)
[2022-07-20] MEDS: ALPRAZolam 0.5 mg Tablet 0.25 MG PO (20:30)
--- NOTE | 2022-07-20 23:33 | USCV_ITS ---
Lisset Murphy Age: 72 Gender: F : 1950 Exam Date: 07/20/2022 03:23 Ordering Phys: Paulo Tran MD Technologist: RAIZA Exam Location: [facility] [place] Indication: SOB COPD chronic hypoxic resp failure, history of atrial fibrillation. BP: 180 / 89 HR: 83 Rhythm: Sinus with occasional strings of atrial fibrillation Technical Quality: Adequate MEASUREMENTS (Male / Female) Normal Values 2D ECHO LV Diastolic Diameter PLAX 4.2 cm 4.2 - 5.9 / 3.9 - 5.3 cm LV Systolic Diameter PLAX 2.8 cm IVS Diastolic Thickness 1.1 cm 0.6 - 1.0 / 0.6 - 0.9 cm IVS Systolic Thickness 0.8 cm LVPW Diastolic Thickness 1.2 cm 0.6 - 1.0 / 0.6 - 0.9 cm LVPW Systolic Thickness 1.4 cm LVOT Diameter 1.9 cm LV Ejection Fraction 2D Teich 63.5 % LV Ejection Fraction MOD 2C 66.0 % LV Ejection Fraction 2C AL 66.6 % LA Diameter 5.1 cm LA Width 5.1 cm LA Height 7.2 cm RA Width 4.2 cm RA Height 4.8 cm Aorta at Sinotubular Diameter 2.2 cm IVC Diameter 1.2 cm M-MODE Aortic Annulus Diameter 2.6 cm LA Ao Ratio MM 2.0 MV E Point Septal Separation 0.6 cm DOPPLER AV Peak Velocity 236.0 cm/s LVOT Peak Velocity 86.0 cm/s AV Area Cont Eq vti 1.3 cm squared AV Area Cont Eq pk 1.1 cm squared MV Peak Velocity 193.0 cm/s MV Area PHT 2.6 cm squared Mitral E to A Ratio 0.6 MV E' Velocity 55.5 cm/s Mitral E to MV E' Ratio 20.9 Mitral E to LV E' Lateral Ratio 19.7 Mitral E to LV E' Septal Ratio 22.2 TR Peak Velocity 297.0 cm/s TR Peak Gradient 35.3 mmHg TV Peak E Velocity 51.0 cm/s Right Atrial Pressure 10.0 mmHg Pulmonary Artery Systolic Pressu 45.3 mmHg PV Peak Velocity 193.0 cm/s RV Acceleration Time 0.1 s RV Ejection Time 0.4 s RV AcT/ET 0.3 FINDINGS Left Ventricle Left ventricle is normal in size. LV systolic function is normal with EF of 55 to 60%. No regional wall motion abnormalities are seen. Grade 1 diastolic dysfunction Right Ventricle Normal in size and function Right Atrium Normal size Left Atrium Dilated Mitral Valve Mild mitral annular calcification is seen. Mild mitral regurgitation. Aortic Valve Aortic valve is thickened and calcified. Mild aortic stenosis with aortic valve area of 1.29 cm squared and mean gradient across aortic valve of 10.4 mmHg. Tricuspid Valve Mild tricuspid regurgitation. RVSP is 40 to 45 mmHg. This is consistent with mild pulmonary hypertension. Pulmonic Valve Not well-visualized. Trace Pulmonic regurgitation Pericardium Normal Aorta Normal in size IVC Appears to be normal CONCLUSIONS LV systolic function is normal with EF 55 to 60%. Grade 1 diastolic dysfunction Left atrial dilation Mild mitral regurgitation Mild aortic stenosis Mild tricuspid regurgitation. Mild pulmonary hypertension Trace pulmonic regurgitation Compared to prior echocardiogram from 05/10/2022, no significant changes are seen Octaviano Castro MD (Electronically Signed) Final Date: 20 July 2022 12:50 S
[2022-07-21] VITALS (20 sets, daily range): BP systolic 120–177; BP diastolic 58–105; PULSE 53–82; RESP 15–77; TEMP 36.9–37.2; O2SAT 90–96
[2022-07-21] MEDS: ipratropium-albuterol 3 mL Neb INHALATION ×4 (06:05→19:20)
[2022-07-21] MEDS: FUROsemide 10 mg/mL SDV 4mL 40 MG IVP ×2 (06:08→18:18)
--- NOTE | 2022-07-21 06:15 | XR_ITS ---
WS: [id number] Portable AP upright chest, 07/21/2022 Clinical Data: sob Comparison: Portable chest, 07/19/2022 Findings: The pulmonary vascularity has increased slightly in the last 2 days. The right pleural effu steph, hyperinflation and cardiomegaly remain unchanged. The aortic arch and descending thoracic aorta show calcification and mild tortuosity. There are monitor leads on the chest wall. XR/XR chest 1V portable [id number] Impression: 1. Increase in pulmonary vascular congestion. 2. No change in right pleural effusion, cardiomegaly, hyperinflation and athero sclerosis.
--- NOTE | 2022-07-21 06:18 | ECG_ITS ---
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 Measurements Intervals [place] Rate: 75 P: -36 RI: 162 QRS: 75 QRSD: 91 T: 44 QT: 387 QTc: 433 Interpretive Statements SINUS RHYTHM POSSIBLE LEFT ATRIAL ENLARGEMENT [-0.1mV P-WAVE IN V1/V2] Compared to ECG 07/20/2022 00:15:35 ST (T wave) deviation no longer present Electronically Signed On 07-21-2022 14:49:26 CDT by Shayne Moy M.D. [id number]
[2022-07-21 06:28] LABS: Basophils # 0.1 10^3/uL (0.0-0.1); Basophils % 0.5 %; Eosinophils # 0.1 10^3/uL (0.0-0.8); Eosinophils % 0.5 %; Hematocrit 37.5 % (37.0-47.0); Hemoglobin 11.1 g/dL (11.5-15.3); Lymphocytes # 1.5 10^3/uL (0.8-4.8); Lymphocytes % 15.7 %; Mean Corpuscular HGB Conc 29.6 g/dL (30.0-36.0); Mean Corpuscular Volume 87.8 fl (81-99); Mean Platelet Volume 9.2 fL (7.4-10.4); Monocytes # 0.9 10^3/uL (0.2-0.9); Monocytes % 9.2 %; Neutrophils % 73.6 %; Nucleated Red Blood Cells % 0 %; Platelet Count 297 10^3/cmm (130-400); Red Blood Count 4.27 10^6/uL (4.1-5.3); Red Cell Distribution Width 15.9 % (12.1-15.1); White Blood Count 9.5 10^3/uL (4.0-10.0)
--- NOTE | 2022-07-21 06:32 | PC.NURSE ---
07/21/22 06 - Called MD Tran on pt sob. New orders noted. 07/21/22 06 - Stress bag tester at bs. Asked if okay to give lexiscan. Updated him that pt was currently sob and receiving breathing treatment and is not appropriate at this time. 07/21/22 06 - Lexiscan was given. 07/21/22 06 - Pt very sob, wheezy, and dyspneic. MD Tran updated on situtation, clinical presentation, and medications given. New orders noted.
[2022-07-21 06:38] LABS: ABG PCO2 49.5 mmHg (35-45); ABG PH Result 7.44 (7.35-7.45); Arterial Blood Gas Hematocrit 34.3 % (37-47); Base Excess ABG 8.5 mmol/L (-2.0-2.0); Blood Gas Allen Test Pos; Blood Gas Sample Type Arterial; Carboxyhemoglobin 1.7 %THgb (0.4-20.1); HCO3 ABG 33.9 mmol/L (22-26); HGB O2 Sat 95.8 % (95-100); Ionized Calcium Level - ABG 1.2 mmol/L (1.1-1.4); Methemoglobin 0.2 % (0.4-1.5); Oxygen Saturation ABG 97.7; PO2 ABG 85.5 mmHg (80.0-100.0); Potassium Level - ABG 3.6 mmol/L (3.5-5.0); Total Hemoglobin 11.2 g/dL (12-16)
[2022-07-21 06:39] LABS: Alveolar-Arterial Oxygen Gradi 17.9 mmHg (5-10); Blood Gas Sample Site Radial, right; Oxygen Device BIPAP
[2022-07-21 06:52] LABS: Alanine Aminotransferase 36 U/L (0-33); Albumin Level 3.6 g/dL (3.5-5.2); Alkaline Phosphatase 82 U/L (35-105); Anion Gap 14.9 (5-19); Aspartate Amino Transferase 30 U/L (0-32); Blood Urea Nitrogen 21 mg/dL (8-23); Calcium 9.2 mg/dL (8.5-10.5); Carbon Dioxide 31 mmol/L (22-29); Chloride 97 mmol/L (98-107); Globulin 2.9 g/dL (1.3-4.6); Glucose 81 mg/dL (65-115); Osmolality Calculated 290 mOsm/kg (285-295); Potassium 3.9 mmol/L (3.5-5.1); Sodium 139 mmol/L (136-145); Total Bilirubin 0.3 mg/dL (0.15-1.2); Total Protein 6.5 g/dL (6.6-8.7)
[2022-07-21] MEDS: aminophylline 25 mg/mL SDV 10 mL IVP (06:52)
--- NOTE | 2022-07-21 08:37 | P.PN_ITS ---
Subjective Subjective: Overnight patient had remained on 3 to 5 L of oxygen supplementation to maintain saturation over 90%. Today morning after receiving dose for Lexiscan she did have acute difficulty in breathing for which she received a minor finding and was placed on BiPAP for a short while. Patient did undergo stress test successfully. Poststress test she was placed back on 3 L of oxygen supplementation saturating more than 90%. Otherwise has remained hemodynamically stable and afebrile. Documented urine output in last 24 hours around 3 L. Vitals/I&O/Wt Last Vital Signs Temp 98.8 F 07/21/22 05:08 Pulse 78 07/21/22 06:26 Resp 28 H 07/21/22 06:06 BP 155/74 07/21/22 05:08 Pulse Ox 96 07/21/22 06:26 O2 Del Method Nasal Cannula 07/21/22 06:06 O2 Flow Rate 5 07/21/22 06:06 FiO2 40 07/21/22 06:26 07/20/22 07/21/22 07/21/22 22:59 06:59 14:59 Intake Total 340 / 700 300 / 300 Output Total 175 / 1075 150 / 1225 950 / 950 Balance 165 / -375 -150 / -525 -650 / -650 Weight last 48 hrs Weight 68.492 kg Physical Exam Const: COMMON NORMALS: no acute distress and patient oriented x3 HENMT: COMMON NORMALS: normocephalic HEAD & SCALP: normocephalic Eye: COMMON NORMALS: Equal, round and reactive pupils present PUPIL: Yes Equal, round and reactive pupils present Neck/C-Spine: COMMON NORMALS: no JVD Lymph: LYMPHATIC: no lymphadenopathy noted Resp: COMMON NORMALS: normal respiratory effort, No retractions, No use of accessory muscles and clear to auscultation bilaterally AUSCULTATION: clear to auscultation bilaterally and crackles Cardio: COMMON NORMALS: no JVD, regular rate, regular rhythm, S1 normal heart sound present and S2 normal heart sound present RATE: regular rate RHYTHM: regular rhythm HEART SOUNDS: S1 normal heart sound present and S2 normal heart sound present GI: COMMON NORMALS: Normal to inspection, nondistended, normoactive bowel sounds present, Soft to palpation and non-tender PALPATION: Yes Soft to palpation : COMMON NORMALS: Yes no CVA tenderness BLADDER/KIDNEY EXAM: Yes no CVA tenderness Back/Pelvis: COMMON NORMALS: no CVA tenderness Extremity: OTHER: Mild edema, right more than left. Neuro: COMMON NORMALS: patient oriented x3, CN's II-XII intact bilaterally, moves all extremities and no focal motor deficits Psych: COMMON NORMALS: mental status grossly normal Urinary Catheter Management: Sherman: Cath Placed During This Visit: yes Reason for Continuing Indwelling Catheter: Other Urinary Catheter Date of Insertion: 07/19/22 Urinary Catheter Time of Insertion: 22:45 Data 07/21/22 06:05 07/21/22 06:05 A&P Assessment and plan (1) Acute and chronic respiratory failure with hypoxia: (2) Acute non-ST elevation myocardial infarction (NSTEMI): (3) Positive cardiac stress test: (4) Elevated d-dimer: (5) CHF exacerbation: Qualifiers: Heart failure type: diastolic Qualified Code(s): I50.33 - Acute on chronic diastolic (congestive) heart failure (6) Chronic obstructive pulmonary disease: (7) Paroxysmal A-fib: (8) AAA (abdominal aortic aneurysm): (9) DVT, bilateral lower limbs: Qualifiers: Affected thrombotic vein of extremity: unspecified vein of extremity Chronicity: unspecified Qualified Code(s): I82.403 - Acute embolism and thrombosis of unspecified deep veins of lower extremity, bilateral (10) Pulmonary edema: (11) Retroperitoneal hematoma: Plan Hypoxia: In setting of congestive heart failure. Appreciate chest x-ray and elevated BNP. Echocardiogram done shows an EF of 55 to 60% with grade 1 diastolic dysfunction, mild aortic stenosis, RVSP of 40 to 45 mmHg consistent with mild pulmonary hypertension and mild TR. No regional wall motion abnormality. Because of persistent hypoxia even after adequate diuresis will check D-dimer given history of DVT in the past. She is off anticoagulation as in May lower limb Dopplers were negative for DVT and she was found to have iliopsoas hematoma. Hemoglobin so far has remained stable. We will plan for CT chest versus CTA as per D-dimer levels. Fluid restriction up to 1500 cc. IV Lasix 40 mg twice daily. Strict input of charting, daily weights. Continue Sherman catheterization for now. Does have history of COPD. No exacerbation. DuoNebs every 6 hour, budesonide twice daily. Start on IV Solu-Medrol 40 mg every 8 hourly. Wean off oxygen supplementation keeping saturation over 88%. CAD: No past history. But cannot rule out unstable angina given symptomatology. Echocardiogram negative for regional wall motion abnormality. Stress test done today positive for a medium sized partially reversible perfusion in the apical, apical lateral and inferior jefferson consistent with kiki- infarct ischemia. We will consult cardiology for further recommendations. Appreciate A1c, lipid panel. Continue with aspirin, statin, beta-lexi. Abdominal arctic aneurysm, 4 x 3.8 cm, with a large amount of mural thrombus in the aneurysm, no evidence of rupture. Proxysmal afib. We will change further treatment as per results of the tests ordered. CODE STATUS: DNR/DNI. Protonix for PUD prophylaxis Lovenox for DVT prophylaxis Discharge planning: Plan to discharge to SNF back once medically stable. Attestations Medical Necessity Statement*: Requires further hospitalization for management of hypoxia in setting of congestive heart failure, CAD with positive stress test and elevated dimer with concern for ACS versus PE Diagnoses Acute and chronic respiratory failure with hypoxia J96.21 Acute non-ST elevation myocardial infarction (NSTEMI) I21.4 Positive cardiac stress test R94.39 Elevated d-dimer R79.89 CHF exacerbation I50.33 Heart failure type: diastolic Chronic obstructive pulmonary disease J44.9 Paroxysmal A-fib I48.0 AAA (abdominal aortic aneurysm) I71.40 DVT, bilateral lower limbs I82.403 Affected thrombotic vein of extremity: unspecified vein of extremity Chronicity: unspecified Pulmonary edema J81.1 Retroperitoneal hematoma K66.1
[2022-07-21] MEDS: regadenoson 0.4 Mg/5 ml Syringe IVP (08:59)
[2022-07-21] MEDS: mirtazapine 15 mg Tablet PO (10:05)
[2022-07-21] MEDS: aspirin 81 mg EC Tablet PO (10:05)
[2022-07-21] MEDS: ferrous sulfate EC 325 mg Tablet PO ×2 (10:06→18:19)
[2022-07-21] MEDS: pantoprazole DR 40 mg Tablet PO (10:06)
[2022-07-21] MEDS: escitalopram 10 mg Tablet PO (10:06)
[2022-07-21] MEDS: metoprolol tartrate 25 mg Tablet PO ×2 (10:06→18:19)
[2022-07-21] MEDS: dilTIAZem 60 mg Tablet 120 MG PO ×2 (10:07→18:19)
[2022-07-21 11:20] LABS: D Dimer 8.29 ug/mIFEU (0-0.59)
--- NOTE | 2022-07-21 13:44 | CTR_ITS ---
PROCEDURE INFORMATION: Exam: CTA Chest With Contrast Exam date and time: 07/21/2022 3:55 PM Age: 72 years old Clinical indication: Abnormal findings; Abnormal diagnostic tests; Elevated d-dimer; Shortness of breath; Additional info: Elevated dimer, hypoxia TECHNIQUE: Imaging protocol: Computed tomographic angiography of the chest with contrast. 3D rendering (Not supervised by radiologist): MIP and/or 3D reconstructed images were created by the technologist. Radiation optimization: All CT scans at this facility use at least one of these dose optimization techniques: automated exposure control; mA and/or kV adjustment per patient size (includes targeted exams where dose is matched to clinical indication); or iterative reconstruction. Contrast material: OMNI 350; Contrast volume: 100 ml; Contrast route: INTRAVENOUS (IV); REPORTING DATA: Count of CT and Cardiac NM exams in prior 12 months: This patient has received 8 known CTs and 0 known cardiac nuclear medicine studies in the 12 months prior to the current study. COMPARISON: CT angio chest w abd pel w con 05/10/2022 4:33 PM RADIATION DOSE METRICS: Total DLP (mGy-cm): 325.06 FINDINGS: Pulmonary arteries: Pulmonary vasculature is adequately opacified without filling defects or other evidence of acute pulmonary embolism. Aorta: Diffuse atherosclerotic changes of the thoracic aorta with extensive calcification of the aortic wall. No aortic aneurysm. Lungs: Diffuse COPD with scattered emphysematous changes most pronounced within the upper lung zones, stable. Moderate size irregular oval-shaped masslike consolidation posterior segment right upper lobe progressed from previous exam. Irregular nodular density abutting some cystic air spaces a anterior segment right upper lobe also progressed from previous exam, nonspecific. Mild bronchiectasis and subsegmental atelectasis right lower lobe, stable. Interval Pleural spaces: Interval development of small-moderate size right pleural effusion. Heart: Heart is mildly enlarged, unchanged. Extensive calcification of coronary arteries. No significant pericardial effusion. Lymph nodes: Scattered borderline enlarged mediastinal and right hilar lymph nodes, stable, nonspecific. Bones/joints: Moderate biconcave compression fracture midthoracic spine and chronic scalloping inferior endplate T9 also unchanged. Soft tissues: Unremarkable. CT/CT angio chest PE protcl [id number] IMPRESSION: 1. Negative CT angiogram of the chest. No evidence of acute pulmonary embolism. 2. COPD with diffuse emphysematous changes. 3. Enlarging irregular consolidative density posterior segment right upper lobe that may be infectious/inflammatory in nature but needs follow-up for surveillance. 4. Enlarging nodular density anterior segment right upper lobe that also needs continued surveillance for clarification. 5. Interval development of small-moderate size right pleural effusion possibly cardiogenic in nature. COMMENTS: In the absence of a history or active diagnosis of lung cancer, it is recommended that this patient with emphysema be evaluated for enrollment in a low dose CT lung cancer screening program.
[2022-07-21] MEDS: lanolin oint 7 gm 1 APPLIC TOPICAL (14:40)
[2022-07-21] MEDS: heparin drip 25,000 UNIT/500 ML PREMIX 20 UNIT IV (14:42)
--- NOTE | 2022-07-21 15:28 | NMCV_ITS ---
NM hany perf SPECT r/s* [id number] Lisset Murphy Age: 72 Gender: F : 1950 Exam Date: 07/21/2022 15:28 Ordering Phys: Yosef Lane MD Technologist: TERRENCE Mckeon Exam Location: [facility] Indications: CHEST PAIN STRESS TEST Please [facility] for [facility] IMAGE PROTOCOL Rest/Stress 1 Lexiscan Day Radiopharmaceutical Dose (mCi) Administration Site Administered by Rest: Tc-99m 10.3 IV TERRENCE Mary Sestamibi Stress:Tc-99m 32.5 IV TERRENCE Mary Sestamibi Rest: 21-Jul-2022 60 Discovery 630 Stress: 21-Jul-2022 30 Discovery 630 0.4mg Lexiscan. Supine position only as patient was unable to lay prone. SPECT RESULTS Technical Quality: Excellent Raw Data Analysis: Breast attenuation Image Corrections: No attenuation or motion correction applied Summed Stress Score: 9 Summed Rest Score: 7 Summed Difference Score: 2 PERFUSION FINDINGS There is a medium sized, partially reversible perfusion defect noted in the apical , apical lateral and inferior jefferson. This is consistent with medium sized area of prior infarct in these territories with significant areas of kiki-infarct ischemia. FUNCTIONAL RESULTS (calculated via Gated SPECT) Stress Image LV EF (%): 69 Stress EDV (mL):83 TID: 1.08 Stress ESV (mL):26 FUNCTIONAL FINDINGS: There is normal left ventricular systolic function. IMPRESSIONS 1. Abnormal myocardial perfusion imaging with medium sized areas of prior infarct with kiki-infarct ischemia noted in apical, apical lateral and inferior jefferson. 2. LV systolic function is normal Octaviano Castro MD (Electronically Signed) Final Date: 21 July 2022 11:21 S
[2022-07-21] MEDS: iohexol 350 mg/mL 500 mL Btl (per mL) IV (16:07)
--- NOTE | 2022-07-21 18:13 | P.CONIM_ITS ---
Providers/Reason For Consult Consulting Physician/Specialty*: SABI Harvey MD/cardiology Reason for Consult*: Patient with non-ST elevation myocardial infarction Requesting Physician: Dr. Lane Attending Physician: Yosef Lane MD Primary Care Provider: Thompson Zuluaga MD History of Present Illness History of Present Illness Lisset Murphy is a 72 year old female is admitted to the hospital through the emergency room, where she presented with complaints of chest tightness and shortness of breath. She was found to have slightly elevated troponin T with a 2-hour delta of 10 and 6-hour delta of 13. She had a Myocardial perfusion imaging today which revealed an area of myocardial scarring with a significant kiki-infarction ischemia in the distribution of the right coronary artery/circumflex artery. Cardiology consult is requested for further cardiac evaluation recommendations. This patient is known to have severe COPD and status posttreatment for a malignant pulmonary nodule. She is currently on 5 L of oxygen by nasal cannula. She has a [id number] history of smoking which she quit in May of this year. She was having worsening shortness of breath and chest tightness on the day of the hospital admission. Even with minimal activities, she was getting extremely short of breath. She denies any fever or chills. She may have a dry cough. No other associated symptoms. She has a history of heart failure and intermittent atrial fibrillation. She also has a history of DVT. She was on long-term oral anticoagulation. Apparently she developed spontaneous retroperitoneal hematoma and for that reason, was taken off of the oral anticoagulant. At the time of my examination, patient has significant improvement of the resting shortness of breath. However still she get very short of breath with activities. Her oxygen saturations around 93 on 5 L of oxygen by nasal cannula. Patient is noted to have high blood pressure. She also has a history of infrarenal aortic aneurysm measuring 4.0 x 3.8 cm in diameter by recent CT of the abdomen. Her echocardiogram revealed normal LV size ejection fraction with no significant wall motion normalities. Myocardial perfusion imaging findings are as mentioned below. Review of Systems Narrative: CONSTITUTIONAL: No fever or chills. EYES: No blurring of vision or other visual disturbances lately. ENT: No hoarseness of voice, auditory disturbances or sore throat. CARDIOVASCULAR: As mentioned above. RESPIRATORY: As mentioned above. GASTROINTESTINAL: History of retroperitoneal hematoma GENITOURINARY: No dysuria or hematuria. INTEGUMENTARY: No skin rashes or history of skin cancer. NEURO: No transient ischemic attacks or amaurosis. PSYCHIATRIC: History of major depressive illness HEMATOLOGIC: No bleeding disorders or significant anemia. ENDOCRINE: No history of polyuria or polydipsia. MUSCULOSKELETAL: No recent joint pain or swelling. ALLERGY/IMMUNOLOGY: As mentioned above. Medications/Allergies Home Medications Medication Instructions Recorded Confirmed Last Taken Type albuterol sulfate 2.5 mg/3 mL 2.5 mg (3 mL) inhalation Q6H PRN 04/22/21 07/20/22 01/25/22 Rx (0.083 %) solution for nebulization bronchospasm #180 mL diltiazem HCl 120 mg tablet 120 mg PO BID 06/16/21 07/20/22 05/10/22 History alprazolam 0.25 mg tablet 0.25 mg PO BEDTIME 01/25/22 07/20/22 Unknown History Home oxygen #1 ea 02/02/22 07/20/22 Unknown Rx fluticasone propionate 50 1 spray intranasal Q12H #16 grams 03/09/22 07/20/22 Unknown Rx mcg/actuation nasal spray,suspension hydrocodone 5 mg-acetaminophen 325 1 tab PO Q6H PRN pain #14 tabs 05/05/22 07/20/22 05/10/22 Rx mg tablet prednisone 5 mg tablet 5 mg PO DAILY 05/10/22 07/20/22 05/09/22 History furosemide 20 mg tablet 40 mg PO QAM 30 days #30 tabs 05/27/22 07/20/22 05/09/22 Rx acetaminophen 500 mg capsule 1,000 mg PO Q6H PRN Pain 07/03/22 07/20/22 Unknown History docusate sodium 100 mg capsule 200 mg PO BID PRN Constipation 07/03/22 07/20/22 Unknown History escitalopram oxalate 10 mg tablet 10 mg PO DAILY 07/03/22 07/20/22 Unknown History (Lexapro) ferrous sulfate 325 mg (65 mg 325 mg PO BID 07/03/22 07/20/22 Unknown History iron) tablet loperamide 2 mg capsule 4 mg PO BID PRN Diarrhea 07/03/22 07/20/22 Unknown History metoprolol tartrate 25 mg tablet 12.5 mg PO BID 07/03/22 07/20/22 Unknown History mirtazapine 15 mg tablet 15 mg PO DAILY 07/03/22 07/20/22 Unknown History pantoprazole 40 mg tablet,delayed 40 mg PO DAILY 07/03/22 07/20/22 Unknown History release polyethylene glycol 3350 17 17 g PO DAILY PRN Constipation 07/03/22 07/20/22 Unknown History gram/dose oral powder (Miralax) temazepam 15 mg capsule 30 mg PO BEDTIME PRN Insomnia 07/03/22 07/20/22 Unknown History albuterol sulfate 90 mcg/actuation 2 puff inhalation Q6H PRN 07/12/22 07/20/22 Unknown Rx aerosol inhaler (ProAir HFA) Shortness Of Breath #8.5 grams budesonide 0.5 mg/2 mL suspension 0.5 mg (2 mL) inhalation BID #120 07/12/22 07/20/22 Unknown Rx for nebulization mL formoterol fumarate 20 mcg/2 mL 2 ml inhalation BID #120 mL 07/12/22 07/20/22 Unknown Rx solution for nebulization (Perforomist) revefenacin 175 mcg/3 mL solution 175 mcg (3 mL) inhalation DAILY 07/12/22 07/20/22 Unknown Rx for nebulization (Yupelri) #90 mL fluticasone fur. 100 mcg-umeclid 1 inh inhalation DAILY 07/20/22 07/20/22 Unknown History 62.5 mcg-vilant 25 mcg inhalat.powder (Trelegy Ellipta) guaifenesin 600 mg tablet, 600 mg PO BID 07/20/22 07/20/22 Unknown History extended release 12 hr (Mucinex) Allergies Allergy/AdvReac Type Severity Reaction Status Date / Time shrimp Allergy ADR-Nausea Uncoded 07/14/22 14:46 Current Medications Generic Name Dose Route Start Last Admin Trade Name Freq PRN Reason Stop Dose Admin Albuterol/Ipratropium 3 ml 07/20/22 12:00 07/21/22 15:18 Ipratropium-Albuterol 3 Ml Neb INHALATION 3 ml QID.RESPIRATORY GÓMEZ Administration Albuterol/Ipratropium 3 ml 07/21/22 06:03 07/21/22 06:05 Ipratropium-Albuterol 3 Ml Neb INHALATION 3 ml Q4H.RESPIRATORY PRN Administration sob Alprazolam 0.25 mg 07/20/22 21:00 07/20/22 20:30 Alprazolam 0.5 Mg Tablet PO 0.25 mg BEDTIME GÓMEZ Administration Aminophylline 25 mg 07/21/22 06:25 07/21/22 06:52 Aminophylline 25 Mg/Ml Sdv 10 Ml IVP 07/22/22 06:24 25 mg Q2M PRN Administration see dose instructions Aspirin 81 mg 07/20/22 09:00 07/21/22 10:05 Aspirin 81 Mg Ec Tablet PO 81 mg DAILY GÓMEZ Administration Atorvastatin Calcium 40 mg 07/20/22 21:00 07/20/22 20:30 Atorvastatin 40 Mg Tablet PO 40 mg BEDTIME GÓMEZ Administration Budesonide 0.5 mg 07/20/22 08:00 07/21/22 09:19 Budesonide 0.5 Mg/2 Ml Neb INHALATION Not Given BID.RESPIRATORY GÓMEZ Diltiazem HCl 120 mg 07/20/22 09:00 07/21/22 10:07 Diltiazem 60 Mg Tablet PO 120 mg BID GÓMEZ Administration Docusate Sodium 200 mg 07/19/22 23:33 07/20/22 07:47 Docusate Sodium 100 Mg Capsule PO 200 mg BID PRN Administration Constipation Escitalopram Oxalate 10 mg 07/20/22 09:00 07/21/22 10:06 Escitalopram 10 Mg Tablet PO 10 mg DAILY GÓMEZ Administration Ferrous Sulfate 325 mg 07/20/22 09:00 07/21/22 10:06 Ferrous Sulfate Ec 325 Mg Tablet PO 325 mg BID GÓMEZ Administration Heparin Sodium/Sodium Chloride 25,000 unit in 500 mls @ 0 mls/hr 07/21/22 13:45 07/21/22 14:42 Heparin Drip IV 14.6 unit/kg/hr .Q0M GÓMEZ 20 mls/hr Administration Protocol Per Protocol Lanolin 1 applic 07/21/22 13:50 07/21/22 14:40 Lanolin Oint 7 Gm TOPICAL 1 applic PRN PRN Administration DRYNESS Methylprednisolone Sodium Succinate 40 mg 07/21/22 09:00 07/21/22 10:03 Methylprednisolone Sod Succ 40 Mg/Ml Inj IVP 40 mg Q8H GÓMEZ Administration Metoprolol Tartrate 25 mg 07/20/22 09:00 07/21/22 10:06 Metoprolol Tartrate 25 Mg Tablet PO 25 mg BID GÓMEZ Administration Mirtazapine 15 mg 07/20/22 09:00 07/21/22 10:05 Mirtazapine 15 Mg Tablet PO 15 mg DAILY GÓMEZ Administration Pantoprazole Sodium 40 mg 07/20/22 09:00 07/21/22 10:[address] 40 Mg Tablet PO 40 mg DAILY GÓMEZ Administration PFSH Acute PFSH: Medical History (Updated 07/21/22 @ 20:16 by Becki Harvey MD) Allergic rhinitis Asthma Chronic obstructive pulmonary disease Chronic respiratory failure with hypoxia DVT, bilateral lower limbs Resolved venous doppler 05/27 Essential (primary) hypertension -VSS; continue to monitor -continue oral antihypertensives Hypoxia Lesion of liver Mass of right parotid gland Moderate aortic stenosis -Noted moderate on echo; also noted to have EF=65%, no RWMA, G1DD, moderate pulmonary HTN, mild-moderate TR Nicotine addiction Paroxysmal A-fib Pulmonary nodule Retroperitoneal hematoma Severe depression Subcapital fracture of left femur -secondary to mechanical fall -s/p bipolar arthroplasty by Dr. Good; POD # 3 -EBL-100 mL -PT/OT evaluations appreciated -strict fall precautions, pain control as needed -bowel regimen -Sherman catheter removed Unable to function independently Surgical History H/O tubal ligation Family History Father CAD (coronary artery disease) Mother Cancer Social History Smoking and tobacco status: current every day smoker cigarettes Packs smoked per day: 1.5 Years cigarettes smoked: 50 [ Other cigarette details: Started at age 13 years] Quit status (tobacco): considering quitting Smoking risk assessment/counseling performed?: Yes Alcohol intake: never Counseling given: No Substance/Drug Use: never Counseling given: No Lives independently: Yes Household members: none Marital status: Current occupational status: retired Current gender identity: Female Vitals/I&O/Wt Last Vital Signs Temp 98.8 F 07/21/22 05:08 Pulse 72 07/21/22 16:00 Resp 23 H 07/21/22 16:00 BP 150/72 07/21/22 16:00 Pulse Ox 96 07/21/22 16:00 O2 Del Method Nasal Cannula 07/21/22 16:00 O2 Flow Rate 5 07/21/22 15:20 FiO2 40 07/21/22 08:00 07/21/22 07/21/22 07/21/22 06:59 14:59 22:59 Intake Total 418 / 418 360 / 778 Output Total 150 / 1225 3086 / 3086 Balance -150 / -525 -2668 / -2668 360 / -2308 Weight last 48 hrs Weight 151 lb Physical Exam Narrative: GENERAL: The patient is alert and oriented times three. Not in any acute distress. HEENT: Normal. No icterus or lymphadenopathy.Oral cavity: There are no mucous membrane lesions. NECK: Trachea appears to be central. No masses noted. No JVD or thyromegaly appreciated. RESPIRATORY: Chest is symmetrical. No intercostals muscle retraction or any accessory muscle activation. There is no chest wall tenderness. Breath sounds are heard bilaterally. Scattered expiratory wheezing and some coarse crackles. Intensity of breath sounds significantly diminished in the left base. BREASTS: Deferred. HEART: The heart sounds are normal. No S3 or S4. No significant murmurs. No pericardial rub ABDOMEN: No vessel pulsations or distention. No tenderness. No organomegaly a ppreciated. Bowel sounds are normally heard. : Deferred. RECTAL: Deferred. LYMPHATIC: No lymphadenopathy noted in the neck. EXTREMITIES: 1+ edema both lower extremities. No cyanosis. Peripheral pulses are palpable but weak bilaterally MUSCULOSKELETAL: No acute joint deformities or swelling SKIN: There are no significant rashes or ecchymosis NEUROPSYCHIATRIC: The patient is alert and oriented x3. Appears to be in a good mood. No tremors or rigidity noted. Urinary Catheter Management: Sherman: Cath Placed During This Visit: yes Reason for Continuing Indwelling Catheter: Other Urinary Catheter Date of Insertion: 07/19/22 Urinary Catheter Time of Insertion: 22:45 Data 07/22/22 12:00 07/22/22 12:00 Micro: Laboratory Last Values WBC 9.5 10^3/uL (4.0-10.0) 07/21/22 06:05 RBC 4.27 10^6/uL (4.1-5.3) 07/21/22 06:05 Hgb 11.1 g/dL (11.5-15.3) L 07/21/22 06:05 Hct 37.5 % (37.0-47.0) 07/21/22 06:05 MCV 87.8 fl (81-99) 07/21/22 06:05 MCH 26.0 pg (28.0-34.0) L 07/21/22 06:05 MCHC 29.6 g/dL (30.0-36.0) L 07/21/22 06:05 RDW 15.9 % (12.1-15.1) H 07/21/22 06:05 Plt Count 297 10^3/cmm (130-400) 07/21/22 06:05 MPV 9.2 fL (7.4-10.4) 07/21/22 06:05 Neut % (Auto) 73.6 % 07/21/22 06:05 Lymph % (Auto) 15.7 % 07/21/22 06:05 [place] % (Auto) 9.2 % 07/21/22 06:05 Eos % (Auto) 0.5 % 07/21/22 06:05 Baso % (Auto) 0.5 % 07/21/22 06:05 Neut # (Auto) 7.00 10^3/uL (1.8-7.7) 07/21/22 06:05 Lymph # (Auto) 1.5 10^3/uL (0.8-4.8) 07/21/22 06:05 [place] # (Auto) 0.9 10^3/uL (0.2-0.9) 07/21/22 06:05 Eos # (Auto) 0.1 10^3/uL (0.0-0.8) 07/21/22 06:05 Baso # (Auto) 0.1 10^3/uL (0.0-0.1) 07/21/22 06:05 Nucleated RBC % (auto) 0 % 07/21/22 06:05 Nucleated RBCs # 0.0 /100WBC 07/21/22 06:05 D-Dimer 8.29 ug/mIFEU (0-0.59) H 07/21/22 10:35 Specimen Type Arterial 07/21/22 06:28 Sample Site Radial, right 07/21/22 06:28 ABG pH 7.44 (7.35-7.45) 07/21/22 06:28 ABG pCO2 49.5 mmHg (35-45) H 07/21/22 06:28 ABG pO2 85.5 mmHg (80.0-100.0) 07/21/22 06:28 ABG HCO3 33.9 mmol/L (22-26) H 07/21/22 06:28 ABG O2 Saturation 97.7 07/21/22 06:28 ABG Base Excess 8.5 mmol/L (-2.0-2.0) H 07/21/22 06:28 Duncan Test Pos 07/21/22 06:28 A-a O2 Gradient 17.9 mmHg (5-10) H 07/21/22 06:28 Hematocrit 34.3 % (37-47) L 07/21/22 06:28 Hgb O2 Saturation 95.8 % (95-100) 07/21/22 06:28 Carboxyhemoglobin 1.7 %THgb (0.4-20.1) 07/21/22 06:28 Methemoglobin 0.2 % (0.4-1.5) L 07/21/22 06:28 Total Hemoglobin 11.2 g/dL (12-16) L 07/21/22 06:28 Sodium 140.0 mmol/L (131-143) 07/21/22 06:28 Potassium 3.6 mmol/L (3.5-5.0) 07/21/22 06:28 Glucose 90.0 mg/dL (70-115) 07/21/22 06:28 Ionized Calcium 1.2 mmol/L (1.1-1.4) 07/21/22 06:28 O2 Delivery Device Bipap 07/21/22 06:28 FiO2 40.0 % 07/21/22 06:28 CPAP 6.0 cmH20 07/21/22 06:28 Intensive Care Ambulance Paramedic ID [id number] 07/21/22 06:28 Sodium 139 mmol/L (136-145) 07/21/22 06:05 Potassium 3.9 mmol/L (3.5-5.1) 07/21/22 06:05 Chloride 97 mmol/L (98-107) L 07/21/22 06:05 Carbon Dioxide 31 mmol/L (22-29) H 07/21/22 06:05 Anion Gap 14.9 (5-19) 07/21/22 06:05 BUN 21 mg/dL (8-23) 07/21/22 06:05 Creatinine 0.5 mg/dL (0.5-0.9) 07/21/22 06:05 GFR Calculation Not Reportable 07/21/22 06:05 Glucose 81 mg/dL (65-115) 07/21/22 06:05 Estimat Average Glucose 111 07/20/22 02:12 Hemoglobin A1c 5.5 % (4.0-6.0) 07/20/22 02:12 Calculated Osmolality 290 mOsm/kg (285-295) 07/21/22 06:05 Lactic Acid 1.8 mmol/L (0.5-2.2) 07/19/22 19:24 Calcium 9.2 mg/dL (8.5-10.5) 07/21/22 06:05 Magnesium 1.9 mg/dL (1.7-2.3) 07/20/22 02:12 Total Bilirubin 0.3 mg/dL (0.15-1.2) 07/21/22 06:05 AST 30 U/L (0-32) 07/21/22 06:05 ALT 36 U/L (0-33) H 07/21/22 06:05 Alkaline Phosphatase 82 U/L (35-105) 07/21/22 06:05 Troponin T Baseline 24 ng/L (0-10) H 07/19/22 19:24 Troponin T 120 Minute 34.28 ng/L (0-10) H 07/19/22 21:30 Delta Troponin T 10.28 ABS# (0-10) H* 07/19/22 21:30 Troponin T Hi Sens 6Hr 37.73 ng/L (0-10) H 07/20/22 02:12 Troponin T Hi Sens 6Hr Delta 13.73 ng/L (0-12) H* 07/20/22 02:12 NT-Pro-B Natriuret Pep 8828 pg/mL (0-125) H 07/20/22 02:12 Total Protein 6.5 g/dL (6.6-8.7) L 07/21/22 06:05 Albumin 3.6 g/dL (3.5-5.2) 07/21/22 06:05 Globulin 2.9 g/dL (1.3-4.6) 07/21/22 06:05 Triglycerides 44 mg/dL (0-150) 07/20/22 02:12 Cholesterol 219 mg/dL (0-200) H 07/20/22 02:12 LDL Cholesterol, Calc 136 mg/dL (50-129) H 07/20/22 02:12 Total VLDL Cholesterol 9 mg/dL (0-30) 07/20/22 02:12 HDL Cholesterol 74 mg/dL (60-100) 07/20/22 02:12 Cholesterol/HDL Ratio 2.96 mg/dL (0.0-4.40) 07/20/22 02:12 Lipase 17 U/L (13-60) 07/19/22 19:24 TSH 0.34 uIU/mL (0.27-4.20) 07/20/22 02:12 Urine Color Yellow (Yellow) 07/19/22 23:42 Urine Appearance Clear (CLEAR) 07/19/22 23:42 Urine pH 8 (5-7) H 07/19/22 23:42 Ur Specific Marcella 1.010 (1.005-1.030) 07/19/22 23:42 Urine Protein Neg (Negative) 07/19/22 23:42 Urine Glucose (UA) Norm (Normal) 07/19/22 23:42 Urine Ketones Negative (Negative) 07/19/22 23:42 Urine Blood Neg (Negative) 07/19/22 23:42 Urine Nitrate Negative (Negative) 07/19/22 23:42 Urine Bilirubin Neg (Negative) 07/19/22 23:42 Prot Sulfosalicylic Acd Negative (Negative) 07/19/22 23:42 Urine Urobilinogen Norm mg/dL (Negative) 07/19/22 23:42 Ur Leukocyte Esterase Negative (Negative) 07/19/22 23:42 Echo: My impression: ?LV systolic function is normal with EF 55 to 60%. ?Grade 1 diastolic dysfunction ?Left atrial dilation ?Mild mitral regurgitation ?Mild aortic stenosis ?Mild tricuspid regurgitation.? Mild pulmonary hypertension ?Trace pulmonic regurgitation ?Compared to prior echocardiogram from 05/10/2022, no significant ?changes are seen Myocardial perfusion imaging: My impression: 1. Abnormal myocardial perfusion imaging with medium sized areas of prior ?infarct with kiki-infarct ischemia noted in apical, apical lateral and inferior ?jefferson. ?2. LV systolic function is normal CT Chest: My impression: 1.? Several adverse changes within the lungs as compared to 06/11/2021. 2.? Previously described RIGHT upper lobe neoplasm is now obscured by areas of linear atelectasis and consolidation. 3.? Cavitary lesion in the RIGHT upper lobe has increased in size and now contains peripheral subsolid opacification measuring 3.4 x 3.2 cm. 4.? Lobulated subsolid nodule in the LEFT upper lobe increased in size now measuring 1.2 x 0.9 cm. 5.? No adenopathy. 6.? Severe chronic emphysema. 7.? Severe atherosclerosis aorta with a component of aortic stenosis near the origin of the LEFT subclavian artery. 8.? Consider PET/CT imaging follow-up to evaluate the pulmonary changes. ? EKG 1: My Interpretation: No concerns rhythm with possible left atrial enlargement. No acute ST-T changes. A&P Assessment and plan (1) Elevated troponin: The patient's clinical features may suggest an non-ST elevation myocardial infarction. The EKG does not reveal any significant ischemic changes. The echocardiogram also was unremarkable. (2) Abnormal nuclear stress test: The abnormal perfusion scan is suggestive of ischemia in the distribution of the right coronary artery and left circumflex artery. The ischemic burden appears to be small. However the recurrent heart failure is a concern. (3) Heart failure with preserved ejection fraction: The possibility of coronary ischemia causing the recurrent heart failure is a strong consideration. (4) Paroxysmal A-fib: Patient seems to be staying in the sinus rhythm at this point. Has not had any atrial fibrillation during this hospital admission. (5) AAA (abdominal aortic aneurysm): The aneurysm appears to be moderate and stable. (6) COPD exacerbation: She is currently back to her baseline status. However she has significant dyspnea on exertion which is somewhat unexplained. (7) Old cerebrovascular accident (CVA) without late effect: Seems to have no residual motor weakness at this point. (8) Retroperitoneal hematoma: Patient is off the oral anticoagulant because of this. (9) DVT, bilateral lower limbs: Has not had a recent DVT. Qualifiers: Affected thrombotic vein of extremity: unspecified vein of extremity Chronicity: unspecified Qualified Code(s): I82.403 - Acute embolism and thrombosis of unspecified deep veins of lower extremity, bilateral (10) Benign essential hypertension with target blood pressure below 140/90: The blood pressures are stage II. The antihypertensive medications need to be optimized. Consult Attestations Medical Necessity Statement: In view of the patient's recurrent heart failure and intermittent atrial fibrillation, in order to further evaluate the coronary status, a cardiac catheterization would be appropriate. I may go ahead and start the patient on isosorbide mononitrate 30 mg p.o. daily in addition to the current medications. We will go ahead and do a lipid profile on the blood in the lab. May be started on Lipitor 40 mg p.o. now and daily. We will consider cardiac catheterization sometime tomorrow patient has a history of? Allergic reaction to shrimp. May start on prednisone 50 mg p.o. every 6 hours x 3 Pepcid 20 mg p.o. twice daily Coding Level of Care Code 35617 Diagnoses Elevated troponin R77.8 Abnormal nuclear stress test R94.39 Heart failure with preserved ejection fraction I50.30 Paroxysmal A-fib I48.0 AAA (abdominal aortic aneurysm) I71.40 COPD exacerbation J44.1 Old cerebrovascular accident (CVA) without late effect Z86.73 Retroperitoneal hematoma K66.1 DVT, bilateral lower limbs I82.403 Affected thrombotic vein of extremity: unspecified vein of extremity Chronicity: unspecified Benign essential hypertension with target blood pressure below 140/90 I10
[2022-07-21] MEDS: docusate sodium 100 mg Capsule 200 MG PO (18:20)
[2022-07-21] MEDS: budesonide 0.5 mg/2 mL Neb INHALATION (19:20)
[2022-07-21] MEDS: atorvastatin 40 mg Tablet PO (20:53)
[2022-07-21] MEDS: ALPRAZolam 0.5 mg Tablet 0.25 MG PO (20:53)
[2022-07-21 22:02] LABS: Partial Thromboplastin Time 32.5 SECONDS (23.9-36.7)
[2022-07-22] VITALS (21 sets, daily range): BP systolic 104–179; BP diastolic 50–99; PULSE 52–80; RESP 17–32; TEMP 36.7–37.1; O2SAT 88–96
[2022-07-22 05:30] LABS: Partial Thromboplastin Time 43.4 SECONDS (23.9-36.7)
[2022-07-22] MEDS: budesonide 0.5 mg/2 mL Neb INHALATION (08:32)
[2022-07-22] MEDS: ipratropium-albuterol 3 mL Neb INHALATION ×3 (08:32→15:22)
[2022-07-22] MEDS: escitalopram 10 mg Tablet PO (08:59)
[2022-07-22] MEDS: metoprolol tartrate 25 mg Tablet PO ×2 (08:59→19:43)
[2022-07-22] MEDS: mirtazapine 15 mg Tablet PO (08:59)
[2022-07-22] MEDS: pantoprazole DR 40 mg Tablet PO (08:59)
[2022-07-22] MEDS: ferrous sulfate EC 325 mg Tablet PO ×2 (08:59→19:45)
[2022-07-22] MEDS: aspirin 81 mg EC Tablet PO (09:03)
--- NOTE | 2022-07-22 09:03 | PC.SOCIAL ---
IMM Update pg 2 of IMM Updated and reviewed w/ patient. Copy provided and Copy dated, initialed and placed in chart.
[2022-07-22] MEDS: docusate sodium 100 mg Capsule 200 MG PO (09:05)
[2022-07-22] MEDS: dilTIAZem 60 mg Tablet 120 MG PO ×2 (09:06→19:44)
[2022-07-22] MEDS: FUROsemide 10 mg/mL SDV 4mL 40 MG IVP (09:07)
[2022-07-22] MEDS: isosorbide mononitrate ER 30 mg Tablet PO (10:28)
--- NOTE | 2022-07-22 10:33 | PC.NURSE ---
pt stated she wanted to try medication first than an angiogram. pt stated, i am not having any chest pain. i did not have any chest pain. I don't think i can handle the procedure due to my anxiety. 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
[2022-07-22 12:23] LABS: Hematocrit 35.3 % (37.0-47.0); Hemoglobin 10.2 g/dL (11.5-15.3); Lymphocytes # 0.3 10^3/uL (0.8-4.8); Lymphocytes % 4.4 %; Mean Corpuscular HGB Conc 28.9 g/dL (30.0-36.0); Mean Corpuscular Hemoglobin 25.4 pg (28.0-34.0); Mean Corpuscular Volume 87.8 fl (81-99); Monocytes # 0.3 10^3/uL (0.2-0.9); Monocytes % 4.5 %; Neutrophils # 5.59 10^3/uL (1.8-7.7); Neutrophils % 90.5 %; Nucleated Red Blood Cells % 0 %; Platelet Count 243 10^3/cmm (130-400); Red Blood Count 4.02 10^6/uL (4.1-5.3); Red Cell Distribution Width 15.2 % (12.1-15.1); White Blood Count 6.2 10^3/uL (4.0-10.0)
[2022-07-22 12:38] LABS: Partial Thromboplastin Time 58.4 SECONDS (23.9-36.7)
[2022-07-22 12:40] LABS: Alanine Aminotransferase 36 U/L (0-33); Albumin Level 3.2 g/dL (3.5-5.2); Alkaline Phosphatase 68 U/L (35-105); Anion Gap 12.8 (5-19); Aspartate Amino Transferase 23 U/L (0-32); Blood Urea Nitrogen 19 mg/dL (8-23); Calcium 8.7 mg/dL (8.5-10.5); Carbon Dioxide 32 mmol/L (22-29); Chloride 95 mmol/L (98-107); Globulin 2.6 g/dL (1.3-4.6); Glucose 140 mg/dL (65-115); Osmolality Calculated 287 mOsm/kg (285-295); Potassium 3.8 mmol/L (3.5-5.1); Sodium 136 mmol/L (136-145); Total Bilirubin 0.3 mg/dL (0.15-1.2); Total Protein 5.8 g/dL (6.6-8.7)
--- NOTE | 2022-07-22 13:50 | PM.PN ---
Subjective Subjective: No complaints overnight. Seen with son at bedside. Patient states she is feeling a lot better but continues to have anxiety. Denies any nausea, vomiting, headache. Concerned about difficulty in breathing on minimal exertion. Not getting short of breath during conversation. Remains on 3 to 5 L of oxygen supplementation during the day to maintain saturation over 90%. Around 4.5 L of urine output yesterday. Vitals/I&O/Wt Last Vital Signs Temp 98.6 F 07/22/22 12:00 Pulse 62 07/22/22 12:00 Resp 21 H 07/22/22 12:00 BP 104/50 07/22/22 12:00 Pulse Ox 90 07/22/22 12:00 O2 Del Method Nasal Cannula 07/22/22 12:00 O2 Flow Rate 6 07/22/22 11:51 FiO2 40 07/21/22 08:00 07/21/22 07/22/22 07/22/22 22:59 06:59 14:59 Intake Total 632.667 / 1050.667 274 / 1324.667 533.333 / 533.333 Output Total 1300 / 4386 200 / 4586 1250 / 1250 Balance -667.333 / -3335.333 74 / -3261.333 -716.667 / -716.667 Physical Exam Const: COMMON NORMALS: no acute distress and patient oriented x3 HENMT: COMMON NORMALS: normocephalic HEAD & SCALP: normocephalic Eye: COMMON NORMALS: Equal, round and reactive pupils present PUPIL: Yes Equal, round and reactive pupils present Neck/C-Spine: COMMON NORMALS: no JVD Lymph: LYMPHATIC: no lymphadenopathy noted Resp: COMMON NORMALS: normal respiratory effort, No retractions, No use of accessory muscles and clear to auscultation bilaterally AUSCULTATION: clear to auscultation bilaterally and crackles Cardio: COMMON NORMALS: no JVD, regular rate, regular rhythm, S1 normal heart sound present and S2 normal heart sound present RATE: regular rate RHYTHM: regular rhythm HEART SOUNDS: S1 normal heart sound present and S2 normal heart sound present GI: COMMON NORMALS: Normal to inspection, nondistended, normoactive bowel sounds present, Soft to palpation and non-tender PALPATION: Yes Soft to palpation : COMMON NORMALS: Yes no CVA tenderness BLADDER/KIDNEY EXAM: Yes no CVA tenderness Back/Pelvis: COMMON NORMALS: no CVA tenderness Extremity: OTHER: Mild edema, right more than left. Neuro: COMMON NORMALS: patient oriented x3, CN's II-XII intact bilaterally, moves all extremities and no focal motor deficits Psych: COMMON NORMALS: mental status grossly normal Urinary Catheter Management: Sherman: Cath Placed During This Visit: yes Reason for Continuing Indwelling Catheter: Other Urinary Catheter Date of Insertion: 07/19/22 Urinary Catheter Time of Insertion: 22:45 Data 07/22/22 12:00 07/22/22 12:00 Other Labs: Chest CTA 07/21/22 13:44 IMPRESSION: 1. Negative CT angiogram of the chest. No evidence of acute pulmonary embolism. 2. COPD with diffuse emphysematous changes. 3. Enlarging irregular consolidative density posterior segment right upper lobe that may be infectious/inflammatory in nature but needs follow-up for surveillance. 4. Enlarging nodular density anterior segment right upper lobe that also needs continued surveillance for clarification. 5. Interval development of small-moderate size right pleural effusion possibly cardiogenic in nature. COMMENTS: In the absence of a history or active diagnosis of lung cancer, it is recommended that this patient with emphysema be evaluated for enrollment in a low dose CT lung cancer screening program. A&P Assessment and plan (1) Acute and chronic respiratory failure with hypoxia: (2) Acute non-ST elevation myocardial infarction (NSTEMI): (3) Positive cardiac stress test: (4) CHF exacerbation: Qualifiers: Heart failure type: diastolic Qualified Code(s): I50.33 - Acute on chronic diastolic (congestive) heart failure (5) Chronic obstructive pulmonary disease: (6) Paroxysmal A-fib: (7) AAA (abdominal aortic aneurysm): (8) Elevated d-dimer: (9) DVT, bilateral lower limbs: Qualifiers: Affected thrombotic vein of extremity: unspecified vein of extremity Chronicity: unspecified Qualified Code(s): I82.403 - Acute embolism and thrombosis of unspecified deep veins of lower extremity, bilateral (10) Pulmonary edema: (11) Retroperitoneal hematoma: Plan Hypoxia: In setting of congestive heart failure. Appreciate chest x-ray and elevated BNP. Echocardiogram done shows an EF of 55 to 60% with grade 1 diastolic dysfunction, mild aortic stenosis, RVSP of 40 to 45 mmHg consistent with mild pulmonary hypertension and mild TR. No regional wall motion abnormality. CT negative for pulmonary embolism. Will check lower limb Dopplers as well. For congestive heart failure continue with fluid restriction up to 1500 cc. Lasix 40 mg IV daily. Net 6 L negative since admission. Strict input output charting, daily weights. Does have history of COPD. DuoNebs every 6 hour, budesonide twice daily. Start on IV Solu-Medrol 40 mg every 8 hourly. Will wean gradually within next 24 hours. Wean off oxygen supplementation keeping saturation over 88%. Symptoms could be secondary to acute coronary syndrome. CAD: Positive stress test. Discussed in detail with patient again at bedside with son at bedside that patient would benefit from revascularization if there is coronary stenosis but there is a possibility of medical management as well depending on what patient herself would want. Patient is concerned about anxiety during cardiac angiogram. We discussed that there are medications which can provide to make the patient during the procedure to help her with the anxiety. Patient states she would want to do what is best for her and is agreeable to cardiac angiogram if needed. Discussed in detail with cardiology. Plan for cardiac angiogram later in the day today. Echocardiogram negative for regional wall motion abnormality. Appreciate A1c, lipid panel. Continue with aspirin, statin, beta-lexi. Abdominal arctic aneurysm, 4 x 3.8 cm, with a large amount of mural thrombus in the aneurysm, no evidence of rupture. Paroxysmal afib. We will change further treatment as per results of the tests ordered. CODE STATUS: DNR/DNI. Protonix for PUD prophylaxis Lovenox for DVT prophylaxis Discharge planning: Plan to discharge to SNF back once medically stable. Attestations Medical Necessity Statement*: Requires further hospitalization for management of hypoxic respiratory failure in setting of congestive heart failure, CAD with positive stress test Diagnoses Acute and chronic respiratory failure with hypoxia J96.21 Acute non-ST elevation myocardial infarction (NSTEMI) I21.4 Positive cardiac stress test R94.39 CHF exacerbation I50.33 Heart failure type: diastolic Chronic obstructive pulmonary disease J44.9 Paroxysmal A-fib I48.0 AAA (abdominal aortic aneurysm) I71.40 Elevated d-dimer R79.89 DVT, bilateral lower limbs I82.403 Affected thrombotic vein of extremity: unspecified vein of extremity Chronicity: unspecified Pulmonary edema J81.1 Retroperitoneal hematoma K66.1
--- NOTE | 2022-07-22 13:59 | XACV_ITS ---
Exam Room: 2 Ht: 178 cm Wt: 68 kg BSA: 1.84 m2 Gender: Female : 1950 Any Known Allergies: Other Exam Priority: Routine Procedure(s): Procedure Description: Diagnostic procedure Procedure Description: Left Heart Catheterization Procedure Description: Miscellaneous Procedure Description: ACT Procedure Description: Coronary Angiography Wes PHAM; Diagnostic Cath Status: Urgent Diagnostic Findings * Left main is a medium caliber vessel relative was found to have around 20% distal narrowing with a moderate calcification. * The left artery descending artery is a medium caliber vessel which appears to wrap around the LV apex minimally. The artery was found to be extremely tortuous. Moderate to heavy calcification was noted in the proximal to mid segment. There is 40 to 50% irregular narrowing in the proximal to mid segment. No significant stenotic lesions were noted. * The circumflex artery also is a medium caliber vessel which was found to be highly tortuous. 30 to 40% diffuse irregular narrowing was noted in the proximal and mid segment of the artery. No significant stenotic lesions were noted. Moderate diffuse calcification was noted in the proximal to mid segment of the artery.. * The right coronary artery is a medium caliber dominant vessel which appears to be completely occluded after the first RV branch. The artery was found to have 40 to 50% diffuse narrowing to his the origin of the first RV branch. Some bridging collaterals were noted filling at the other RV branches. [id number] collaterals were noted during the left coronary injection filling of the PDA and the PLV branches.. Conclusions 1. 72-year-old female with a history of COPD, hypertension, presenting with recurrent episodes of CHF. Abnormal Myocardial perfusion imaging. Suggesting ischemia in the distribution of the right coronary artery/circumflex artery. Cardiac catheterization revealed the following. 2. Possible chronic total occlusion of the right coronary artery with evidence of bridging collaterals and [id number] collaterals. Highly tortuous circumflex and left anterior sending arteries with mild to moderate diffuse disease in the proximal segment was of these arteries. Moderate to heavy coronary calcification was noted in in the proximal segments of these arteries. LVEDP of 17 mmHg.. 3. I discussed and reviewed the cardiac catheterization data with the Dr. Moy. He does not be appropriate to continue and optimize the medical management. Diagnostic RX Recommendation: medical therapy and/or counseling LV EDP: 17 mmHg Left Ventriculography Findings: * LV gram was not performed. LVEDP was 17 mmHg. Pressures Phase:Rest AO : 99 / 54 ( 73 ) @ 6:00:00 PM 100 / 78 ( 87 ) @ 6:06:00 PM 130 / 52 ( 80 ) @ 6:14:00 PM 128 / 50 ( 80 ) @ 6:14:00 PM LV : 141 / 10 / 16 @ 6:13:00 PM 144 / 11 / 17 @ 6:14:00 PM Valves Phase:DefaultPhase AV : 15.0 @ 5:28:59 PM 15.0 @ 5:28:59 PM AV Mean Gradient: 22.0 @ 5:28:59 PM Clinical Evaluation EBL: 5mL-10mL Procedural Details Procedure Consent Obtained. Admit Source: In Patient. Pre-Procedure Time Out. Identified patient by full name and date of as verbalized by the patient/guarantor. Does the consent match the physician's order: Yes. Accurate & Complete Informed Consent: Yes. Inpatient/Outpatient History & Physical on Chart: Yes. If H&P is completed, is and addenduem needed: N/A; If yes, is the addendum complete: N/A. Visualize and Verify Site with Patient/Guarantor: N/A. Relevant Radiology Images available: Yes. Pre-op teaching completed and patient verbalized understanding. The risks, benefits, and alternatives of sedation and/or procedure were discussed by physician. The patient agrees to continue. Procedure started. [facility] Clinical Fraility Score: 4: Vulnerable. Chest Pain Symptom Assessment: Typical Angina Symptoms. Correct patient, site and procedure confirmed by cath team. Current diagnosis: NSTEMI. PERRLA. Strong, equal hand auto service dispatcher bilaterally. Lungs clear x 5 lobes. IV Site on Arrival: 20 gauge in the left anticubital. IV Fluids: 0.9% NaCl at KVO. 0 mL infused prior to labor relations director. Pre Procedural Pulses: right radial was 3+. Pre Procedural Pulses: bilateral dorsalis pedis was 2+. Oxygen started at 4liters/min via nasal canula. right groin was prepped with chloroprep then draped in the usual sterile fashion. right radial was prepped with chloroprep then draped in the usual sterile fashion. Physician notified. Baseline sample Acquired. HR: 71 BPM. Guard Entrance Registrar Indications: Worsening Angina. Physician arrived. Physician scrubbed in. Immediate Pre-Procedure Time Out. Correct Patient: Yes; Correct Procedure: Yes; Correct Site: Yes; Correct Patient Position: Yes; Correct Supplies: Yes; Dried Flammable Prep: Yes; Blood Products Available: N/A;. Lidocaine 1% infiltrated to the right radial. Arterial access obtained. Hand injection performed through the sheath. Radial access aborted d/t tortuosity. A TR Band was successful obtaining hemostatsis at the Right Radial artery insertion site. Lidocaine 1% infiltrated to the right groin. Arterial access obtained with micropuncture set. A 5 ecuadorean JR4 catheter in over wire. ACT drawn. Results 152 seconds. Therapeutic limits - pre-heparin administration 90-150 seconds and monitoring heparin during a vascular procedure >250 seconds. Multiple views taken of right coronary artery. Catheter removed over the exchange wire. A 5 ecuadorean JL4 catheter in over wire. Multiple views taken of left coronary artery. EDP Sample taken: LV 141/10,16; HR: 66 BPM; SpO2: 91%. Pullback taken: LV 144/11,17; AO 130/52(80); Mean: 22mmHg, Peak to Peak: 15mmHg, SEP: 19sec/min; HR: 66 BPM; SpO2: 92%. Catheter out. Dr Moy notified to reivew films. A Suture was successful obtaining hemostatsis at the Right Femoral artery insertion site. Sheath(s) sutured into position with 2-0 silk and sterile 4x4's and Op-site applied over the site. No oozing or signs and symptoms of hematoma noted. Post Procedure: Pulses reassessed and unchanged. PERRLA. Strong, equal hand auto service dispatcher bilaterally. No VTE prophylaxis required. Medication's Wasted: Nitro = 49.8. mg. Medication's Wasted: Other = Fentanyl 75 mcg. Medication's Wasted: Heparin = 2500 u. Medication's Wasted: Other = Benadryl 25 mg. Total IV fluids: 60 mL. Post-op diagnosis: Total Occlusion RCA, CAD. Complications: none. Estimated blood loss: 5mL-10mL. Responsiveness - Normal response to verbal stimuli; alert and oriented, PERRLA. Airway - Unaffected, no intervention required; spontaneous ventilation. Circulation: W/N/L, pulses unchanged. Nausea/Vomiting: No. Procedure completed. Patient transferred by bed to 1st floor. Vital chart was stopped. Access Site Site: Right Radial artery Sheath Size: 6 Fr Hemostasis Method: TR Band Hemostasis Success: Successful Site: Right Femoral artery Sheath Size: 5 Fr Hemostasis Method: Suture Hemostasis Success: Successful Procedure Medications Start: 4:38 PM Stop: 4:38 PM Medication: Versed Amount: 1 mg Route: I.V. Start: 4:38 PM Stop: 4:38 PM Medication: Fentanyl Amount: 25 mcg Route: I.V. Start: 4:38 PM Stop: 4:38 PM Medication: Benadryl Amount: 25 mg Route: I.V. Start: 4:42 PM Stop: 4:42 PM Medication: Verapamil Amount: 5 mg Route: I.A. Start: 4:43 PM Stop: 4:43 PM Medication: Nitrogylcerin Amount: 200 mcg Route: I.A. Start: 4:53 PM Stop: 4:53 PM Medication: Versed Amount: 1 mg Route: I.V. Start: 5:04 PM Stop: 5:04 PM Medication: Heparin Amount: 1500 units Route: I.V. I, the attending physician, have reviewed and verified all procedure medications. Yes, all medications given per verbal order History/Risk Factors Hypertension: Yes Dyslipidemia: Yes Peripheral Arterial Disease (PAD): No Myocardial Infarction (HI): No Obesity: No Renal Disease: No Tobacco Use: Current/Recent(w/in 1 year) Prior Interventions PCI: No CABG: No Valve Surgery: No Report Signatures Finalized by Dr Becki Harvey MD [facility] on 07/23/2022 03:59 PM
--- NOTE | 2022-07-22 14:02 | P.PN_ITS ---
Subjective Subjective: Patient has no chest pain. She still has intermittent shortness of breath with activities. Has no fever or chills. Vital signs are stable. Medications: Medication Review Details: Current Medications Hydrocodone Bitart/Acetaminophen (Hydrocodone-Acetaminophen 5-325 Mg Tablet) 1 tab PO Q6H PRN PRN Reason: pain Albuterol/Ipratropium (Ipratropium-Albuterol 3 Ml Neb) 3 ml INHALATION QID.RESPIRATORY GÓEMZ Last Admin: 07/22/22 11:49 Dose: 3 ml Albuterol/Ipratropium (Ipratropium-Albuterol 3 Ml Neb) 3 ml INHALATION Q4H.RESPIRATORY PRN PRN Reason: sob Last Admin: 07/21/22 06:05 Dose: 3 ml Alprazolam (Alprazolam 0.5 Mg Tablet) 0.25 mg PO BEDTIME GÓMEZ Last Admin: 07/21/22 20:53 Dose: 0.25 mg Aspirin (Aspirin 81 Mg Ec Tablet) 81 mg PO DAILY GÓMEZ Last Admin: 07/22/22 09:03 Dose: 81 mg Atorvastatin Calcium (Atorvastatin 40 Mg Tablet) 40 mg PO BEDTIME GÓMEZ Last Admin: 07/21/22 20:53 Dose: 40 mg Budesonide (Budesonide 0.5 Mg/2 Ml Neb) 0.5 mg INHALATION BID.RESPIRATORY GÓMEZ Last Admin: 07/22/22 08:32 Dose: 0.5 mg Diltiazem HCl (Diltiazem 60 Mg Tablet) 120 mg PO BID GÓMEZ Last Admin: 07/22/22 09:06 Dose: 120 mg Docusate Sodium (Docusate Sodium 100 Mg Capsule) 200 mg PO BID PRN PRN Reason: Constipation Last Admin: 07/22/22 09:05 Dose: 200 mg Escitalopram Oxalate (Escitalopram 10 Mg Tablet) 10 mg PO DAILY GÓMEZ Last Admin: 07/22/22 08:59 Dose: 10 mg Ferrous Sulfate (Ferrous Sulfate Ec 325 Mg Tablet) 325 mg PO BID GÓMEZ Last Admin: 07/22/22 08:59 Dose: 325 mg Furosemide (Furosemide 10 Mg/Ml Sdv 4ml) 40 mg IVP Q24H GÓMEZ Heparin Sodium (Porcine) (Heparin 5,000 Unit/Ml Inj 1 Ml) 0 unit IV PRN PRN; Protocol PRN Reason: Heparin weight-base protocol Heparin Sodium/Sodium Chloride (Heparin Drip) 25,000 unit in 500 mls @ 0 mls/hr IV .Q0M [facility]; Protocol Last Titration: 07/22/22 13:02 Dose: 19.71 unit/kg/hr, 27 mls/hr Isosorbide Mononitrate (Isosorbide Mononitrate Er 30 Mg Tablet) 30 mg PO DAILY [facility] Last Admin: 07/22/22 10:28 Dose: 30 mg Lanolin (Lanolin Oint 7 Gm) 1 applic TOPICAL PRN PRN PRN Reason: DRYNESS Last Admin: 07/21/22 14:40 Dose: 1 applic Methylprednisolone Sodium Succinate (Methylprednisolone Sod Succ 40 Mg/Ml Inj) 40 mg IVP Q8H [facility] Last Admin: 07/22/22 09:02 Dose: 40 mg Metoprolol Tartrate (Metoprolol Tartrate 25 Mg Tablet) 25 mg PO BID [facility] Last Admin: 07/22/22 08:59 Dose: 25 mg Mirtazapine (Mirtazapine 15 Mg Tablet) 15 mg PO DAILY [facility] Last Admin: 07/22/22 08:59 Dose: 15 mg Naloxone HCl (Naloxone 0.4 Mg/Ml Sdv) 0.1 mg IVP Q2M PRN PRN Reason: OPIATERV Ondansetron HCl (Ondansetron 2 Mg/Ml Sdv 2 Ml) 4 mg IVP Q8H PRN PRN Reason: vomiting, or N/V if npo Ondansetron HCl (Ondansetron 2 Mg/Ml Sdv 2 Ml) 4 mg IVP Q2M PRN PRN Reason: NAUSEA Pantoprazole Sodium (Pantoprazole Dr 40 Mg Tablet) 40 mg PO DAILY [facility] Last Admin: 07/22/22 08:59 Dose: 40 mg Vitals/I&O/Wt Last Vital Signs Temp 98.6 F 07/22/22 12:00 Pulse 62 07/22/22 12:00 Resp 21 H 07/22/22 12:00 BP 104/50 07/22/22 12:00 Pulse Ox 90 07/22/22 12:00 O2 Del Method Nasal Cannula 07/22/22 12:00 O2 Flow Rate 6 07/22/22 11:51 FiO2 40 07/21/22 08:00 07/21/22 07/22/22 07/22/22 22:59 06:59 14:59 Intake Total 632.667 / 1050.667 274 / 1324.667 533.333 / 533.333 Output Total 1300 / 4386 200 / 4586 1250 / 1250 Balance -667.333 / -3335.333 74 / -3261.333 -716.667 / -716.667 Physical Exam Narrative: GENERAL: The patient is alert and oriented times three. Not in any acute distress. HEENT: No significant pallor, icterus or lymphadenopathy.Oral cavity: There are no mucous membrane lesions. NECK: Trachea appears to be central. No masses noted. No JVD or thyromegaly appreciated. RESPIRATORY: Chest is symmetrical. No intercostals muscle retraction or any accessory muscle activation. There is no chest wall tenderness. Breath sounds are heard bilaterally. No rales or rhonchi heard. No evidence of any consolidation. BREASTS: Deferred. HEART: The heart sounds are normal. No S3 or S4. Short systolic murmur in the lower sternal border. No diastolic murmurs. No pericardial rub ABDOMEN: No vessel pulsations or distention. No tenderness. No organomegaly appreciated. Bowel sounds are normally heard. : Deferred. RECTAL: Deferred. LYMPHATIC: No lymphadenopathy noted in the neck. EXTREMITIES: No edema or cyanosis. No clubbing. MUSCULOSKELETAL: No acute joint deformities or swelling SKIN: There are no significant rashes or ecchymosis NEUROPSYCHIATRIC: The patient is alert and oriented x3. Appears to be in a good mood. No tremors or rigidity noted. Urinary Catheter Management: Sherman: Cath Placed During This Visit: yes Reason for Continuing Indwelling Catheter: Other Urinary Catheter Date of Insertion: 07/19/22 Urinary Catheter Time of Insertion: 22:45 Data 07/22/22 12:00 07/22/22 12:00 Other Labs: Laboratory Last Values WBC 6.2 10^3/uL (4.0-10.0) 07/22/22 12:00 RBC 4.02 10^6/uL (4.1-5.3) L 07/22/22 12:00 Hgb 10.2 g/dL (11.5-15.3) L 07/22/22 12:00 Hct 35.3 % (37.0-47.0) L 07/22/22 12:00 MCV 87.8 fl (81-99) 07/22/22 12:00 MCH 25.4 pg (28.0-34.0) L 07/22/22 12:00 MCHC 28.9 g/dL (30.0-36.0) L 07/22/22 12:00 RDW 15.2 % (12.1-15.1) H 07/22/22 12:00 Plt Count 243 10^3/cmm (130-400) 07/22/22 12:00 MPV 10.0 fL (7.4-10.4) 07/22/22 12:00 Neut % (Auto) 90.5 % 07/22/22 12:00 Lymph % (Auto) 4.4 % 07/22/22 12:00 Hood % (Auto) 4.5 % 07/22/22 12:00 Eos % (Auto) 0.0 % 07/22/22 12:00 Baso % (Auto) 0.0 % 07/22/22 12:00 Neut # (Auto) 5.59 10^3/uL (1.8-7.7) 07/22/22 12:00 Lymph # (Auto) 0.3 10^3/uL (0.8-4.8) L 07/22/22 12:00 Hood # (Auto) 0.3 10^3/uL (0.2-0.9) 07/22/22 12:00 Eos # (Auto) 0.0 10^3/uL (0.0-0.8) 07/22/22 12:00 Baso # (Auto) 0.0 10^3/uL (0.0-0.1) 07/22/22 12:00 Nucleated RBC % (auto) 0 % 07/22/22 12:00 Nucleated RBCs # 0.0 /100WBC 07/22/22 12:00 APTT 58.4 SECONDS (23.9-36.7) H 07/22/22 12:00 D-Dimer 8.29 ug/mIFEU (0-0.59) H 07/21/22 10:35 Specimen Type Arterial 07/21/22 06:28 Sample Site Radial, right 07/21/22 06:28 ABG pH 7.44 (7.35-7.45) 07/21/22 06:28 ABG pCO2 49.5 mmHg (35-45) H 07/21/22 06:28 ABG pO2 85.5 mmHg (80.0-100.0) 07/21/22 06:28 ABG HCO3 33.9 mmol/L (22-26) H 07/21/22 06:28 ABG O2 Saturation 97.7 07/21/22 06:28 ABG Base Excess 8.5 mmol/L (-2.0-2.0) H 07/21/22 06:28 Duncan Test Pos 07/21/22 06:28 A-a O2 Gradient 17.9 mmHg (5-10) H 07/21/22 06:28 Hematocrit 34.3 % (37-47) L 07/21/22 06:28 Hgb O2 Saturation 95.8 % (95-100) 07/21/22 06:28 Carboxyhemoglobin 1.7 %THgb (0.4-20.1) 07/21/22 06:28 Methemoglobin 0.2 % (0.4-1.5) L 07/21/22 06:28 Total Hemoglobin 11.2 g/dL (12-16) L 07/21/22 06:28 Sodium 140.0 mmol/L (131-143) 07/21/22 06:28 Potassium 3.6 mmol/L (3.5-5.0) 07/21/22 06:28 Glucose 90.0 mg/dL (70-115) 07/21/22 06:28 Ionized Calcium 1.2 mmol/L (1.1-1.4) 07/21/22 06:28 O2 Delivery Device Bipap 07/21/22 06:28 FiO2 40.0 % 07/21/22 06:28 CPAP 6.0 cmH20 07/21/22 06:28 Train Operator ID [email or web address] 07/21/22 06:28 Sodium 136 mmol/L (136-145) 07/22/22 12:00 Potassium 3.8 mmol/L (3.5-5.1) 07/22/22 12:00 Chloride 95 mmol/L (98-107) L 07/22/22 12:00 Carbon Dioxide 32 mmol/L (22-29) H 07/22/22 12:00 Anion Gap 12.8 (5-19) 07/22/22 12:00 BUN 19 mg/dL (8-23) 07/22/22 12:00 Creatinine 0.4 mg/dL (0.5-0.9) L 07/22/22 12:00 GFR Calculation Not Reportable 07/22/22 12:00 Glucose 140 mg/dL (65-115) H 07/22/22 12:00 Estimat Average Glucose 111 07/20/22 02:12 Hemoglobin A1c 5.5 % (4.0-6.0) 07/20/22 02:12 Calculated Osmolality 287 mOsm/kg (285-295) 07/22/22 12:00 Lactic Acid 1.8 mmol/L (0.5-2.2) 07/19/22 19:24 Calcium 8.7 mg/dL (8.5-10.5) 07/22/22 12:00 Magnesium 1.9 mg/dL (1.7-2.3) 07/20/22 02:12 Total Bilirubin 0.3 mg/dL (0.15-1.2) 07/22/22 12:00 AST 23 U/L (0-32) 07/22/22 12:00 ALT 36 U/L (0-33) H 07/22/22 12:00 Alkaline Phosphatase 68 U/L (35-105) 07/22/22 12:00 Troponin T Baseline 24 ng/L (0-10) H 07/19/22 19:24 Troponin T 120 Minute 34.28 ng/L (0-10) H 07/19/22 21:30 Delta Troponin T 10.28 ABS# (0-10) H* 07/19/22 21:30 Troponin T Hi Sens 6Hr 37.73 ng/L (0-10) H 07/20/22 02:12 Troponin T Hi Sens 6Hr Delta 13.73 ng/L (0-12) H* 07/20/22 02:12 NT-Pro-B Natriuret Pep 8828 pg/mL (0-125) H 07/20/22 02:12 Total Protein 5.8 g/dL (6.6-8.7) L 07/22/22 12:00 Albumin 3.2 g/dL (3.5-5.2) L 07/22/22 12:00 Globulin 2.6 g/dL (1.3-4.6) 07/22/22 12:00 Triglycerides 44 mg/dL (0-150) 07/20/22 02:12 Cholesterol 219 mg/dL (0-200) H 07/20/22 02:12 LDL Cholesterol, Calc 136 mg/dL (50-129) H 07/20/22 02:12 Total VLDL Cholesterol 9 mg/dL (0-30) 07/20/22 02:12 HDL Cholesterol 74 mg/dL (60-100) 07/20/22 02:12 Cholesterol/HDL Ratio 2.96 mg/dL (0.0-4.40) 07/20/22 02:12 Lipase 17 U/L (13-60) 07/19/22 19:24 TSH 0.34 uIU/mL (0.27-4.20) 07/20/22 02:12 Urine Color Yellow (Yellow) 07/19/22 23:42 Urine Appearance Clear (CLEAR) 07/19/22 23:42 Urine pH 8 (5-7) H 07/19/22 23:42 Ur Specific [place] 1.010 (1.005-1.030) 07/19/22 23:42 Urine Protein Neg (Negative) 07/19/22 23:42 Urine Glucose (UA) Norm (Normal) 07/19/22 23:42 Urine Ketones Negative (Negative) 07/19/22 23:42 Urine Blood Neg (Negative) 07/19/22 23:42 Urine Nitrate Negative (Negative) 07/19/22 23:42 Urine Bilirubin Neg (Negative) 07/19/22 23:42 Prot Sulfosalicylic Acd Negative (Negative) 07/19/22 23:42 Urine Urobilinogen Norm mg/dL (Negative) 07/19/22 23:42 Ur Leukocyte Esterase Negative (Negative) 07/19/22 23:42 A&P Assessment and plan (1) Elevated troponin: The patient's clinical features may suggest an non-ST elevation myocardial infarction. The EKG does not reveal any significant ischemic changes. The echocardiogram also was unremarkable. (2) Abnormal nuclear stress test: The abnormal perfusion scan is suggestive of ischemia in the distribution of the right coronary artery and left circumflex artery. The ischemic burden appears to be small. However the recurrent heart failure is a concern. Discussed once again with the patient and her son regarding the stress test findings, its implication and further management. The patient and her son decided to go ahead with an angiogram to find out the details of the coronary arteries. The risk and benefits of the procedure were discussed in detail. The risk of bleeding, hematoma, vascular injury, myocardial infarction, myocardial perforation, malignant cardiac arrhythmias ,CVA, renal failure and other concomitant complications were explained in detail. The patient and his son understood this well and consented to proceed (3) Heart failure with preserved ejection fraction: The possibility of coronary ischemia causing the recurrent heart failure is a strong consideration. (4) Paroxysmal A-fib: Patient seems to be staying in the sinus rhythm at this point. Has not had any atrial fibrillation during this hospital admission. (5) AAA (abdominal aortic aneurysm): The aneurysm appears to be moderate and stable. (6) COPD exacerbation: She is currently back to her baseline status. However she has significant dyspnea on exertion which is somewhat unexplained. (7) Old cerebrovascular accident (CVA) without late effect: Seems to have no residual motor weakness at this point. (8) Retroperitoneal hematoma: Patient is off the oral anticoagulant because of this. (9) DVT, bilateral lower limbs: Has not had a recent DVT. Qualifiers: Affected thrombotic vein of extremity: unspecified vein of extremity Chronicity: unspecified Qualified Code(s): I82.403 - Acute embolism and thrombosis of unspecified deep veins of lower extremity, bilateral (10) Benign essential hypertension with target blood pressure below 140/90: The blood pressures are stage II. The antihypertensive medications need to be optimized. Plan We will go ahead and schedule for the angiogram this afternoon. Based on the angiogram findings, further recommendations will be made. The heparin may be discontinued 4 hours prior to the procedure. Discussed with Dr. Lane who concurred with this plan Attestations Medical Necessity Statement*: Patient requires continued hospital stay for close monitoring and further management Coding Level of Care Code Acute Code for Chg Fwd Diagnoses Elevated troponin R77.8 Abnormal nuclear stress test R94.39 Heart failure with preserved ejection fraction I50.30 Paroxysmal A-fib I48.0 AAA (abdominal aortic aneurysm) I71.40 COPD exacerbation J44.1 Old cerebrovascular accident (CVA) without late effect Z86.73 Retroperitoneal hematoma K66.1 DVT, bilateral lower limbs I82.403 Affected thrombotic vein of extremity: unspecified vein of extremity Chronicity: unspecified Benign essential hypertension with target blood pressure below 140/90 I10
--- NOTE | 2022-07-22 14:10 | W.PM.OPSUD ---
Surgery/Procedure H&P Update DATE OF PROCEDURE: July 22, 2022 DATE H&P PERFORMED: 07/21/22 H&P UPDATE INFORMATION: I have reviewed H&P completed within last 30 days, I have examined patient prior to procedure and No changes to prior documentation PREOP DIAGNOSIS: ASHD PRIMARY INDICATION FOR PROCEDURE: Non-ST elevation myocardial infarction, abnormal Myocardial perfusion imaging. PLANNED PROCEDURE: Left heart catheterization with coronary angiogram, LV angiogram and possible PCI PATIENT REASSESSED PRIOR TO SEDATION, WITH NO CHANGE NOTED: Yes PHYSICAL EXAM: alert, oriented x 3, clear to auscultation bilaterally and regular rate & rhythm AIRWAY EVAL/ANESTHESIA PLAN: normal airway, see other exam findings, ASA IV, Monitored Anesthesia, Local Anesthesia, Risks, benefits & alternatives of sedation and/or procedure discussed and Patient agrees to continue as planned
--- NOTE | 2022-07-22 17:33 | PC.NURSE ---
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 has 5 fr sheath on her right groin. no swelling around the incision area, groin area is soft. no hematoma noted upon checking by dr beard at bedside. pt denies any pain around the site. she said it was swollen even before. hospitalist also notified.
[2022-07-22 18:25] LABS: Partial Thromboplastin Time 37.7 SECONDS (23.9-36.7)
[2022-07-22] MEDS: HYDROcodone-acetaminophen 5-325 mg Tablet 1 TAB PO (19:44)
[2022-07-22] MEDS: atorvastatin 40 mg Tablet PO (21:33)
[2022-07-22] MEDS: ALPRAZolam 0.5 mg Tablet 0.25 MG PO (21:33)
[2022-07-23] VITALS (37 sets, daily range): BP systolic 118–170; BP diastolic 55–85; PULSE 52–79; RESP 7–27; TEMP 36.7–37.1; O2SAT 89–98
[2022-07-23 04:13] LABS: Basophils % 0.1 %; Hematocrit 37.6 % (37.0-47.0); Hemoglobin 10.5 g/dL (11.5-15.3); Lymphocytes # 0.3 10^3/uL (0.8-4.8); Lymphocytes % 3.3 %; Mean Corpuscular HGB Conc 27.9 g/dL (30.0-36.0); Mean Corpuscular Hemoglobin 25.1 pg (28.0-34.0); Mean Corpuscular Volume 89.7 fl (81-99); Mean Platelet Volume 9.6 fL (7.4-10.4); Monocytes # 0.4 10^3/uL (0.2-0.9); Monocytes % 3.6 %; Neutrophils # 8.98 10^3/uL (1.8-7.7); Neutrophils % 92.7 %; Nucleated Red Blood Cells % 0 %; Platelet Count 241 10^3/cmm (130-400); Red Blood Count 4.19 10^6/uL (4.1-5.3); White Blood Count 9.7 10^3/uL (4.0-10.0)
[2022-07-23 04:33] LABS: Alanine Aminotransferase 34 U/L (0-33); Albumin Level 3.3 g/dL (3.5-5.2); Alkaline Phosphatase 68 U/L (35-105); Anion Gap 15.2 (5-19); Aspartate Amino Transferase 18 U/L (0-32); Blood Urea Nitrogen 33 mg/dL (8-23); Carbon Dioxide 32 mmol/L (22-29); Chloride 96 mmol/L (98-107); Globulin 2.7 g/dL (1.3-4.6); Glucose 117 mg/dL (65-115); Osmolality Calculated 296 mOsm/kg (285-295); Potassium 4.2 mmol/L (3.5-5.1); Sodium 139 mmol/L (136-145); Total Bilirubin 0.3 mg/dL (0.15-1.2)
[2022-07-23] MEDS: ipratropium-albuterol 3 mL Neb INHALATION ×5 (04:46→20:08)
--- NOTE | 2022-07-23 08:18 | USCV_ITS ---
Lisset Murphy Age: 72 Gender: F : 1950 Exam Date: 07/23/2022 09:27 Ordering Phys: Yosef Lane MD Technologist: NEPTALI Exam Location: [facility] [place] Indication: dvt HISTORY: DVT. PROCEDURES: The venous duplex Doppler examination of both lower extremities was performed in the standard fashion. FINDINGS: Examination was technically limited due to body habitus. Nonocclusive, age indeterminate DVT right femoral vein and left femoral vein into the popliteal and posterior tibial vein. Veins are small caliber and difficult to visualize. CONCLUSIONS Bilateral age indeterminate non occlusive DVT as above, limited quality exam. Dr. Sabrina Mcgee DO (Electronically Signed) Final Date: 23 July 2022 12:34 S
[2022-07-23] MEDS: FUROsemide 10 mg/mL SDV 4mL 40 MG IVP (09:09)
[2022-07-23] MEDS: mirtazapine 15 mg Tablet PO (09:09)
[2022-07-23] MEDS: pantoprazole DR 40 mg Tablet PO (09:09)
[2022-07-23] MEDS: metoprolol tartrate 25 mg Tablet PO (09:09)
[2022-07-23] MEDS: ferrous sulfate EC 325 mg Tablet PO ×2 (09:09→17:25)
[2022-07-23] MEDS: isosorbide mononitrate ER 30 mg Tablet PO ×2 (09:09→17:25)
[2022-07-23] MEDS: dilTIAZem 60 mg Tablet 120 MG PO ×2 (09:09→17:25)
[2022-07-23] MEDS: escitalopram 10 mg Tablet PO (09:10)
[2022-07-23] MEDS: aspirin 81 mg EC Tablet PO (09:10)
[2022-07-23] MEDS: docusate sodium 100 mg Capsule 200 MG PO ×2 (09:15→17:28)
--- NOTE | 2022-07-23 16:16 | P.PN_ITS ---
Subjective Subjective: No acute events overnight. Patient remains comfortably in bed. States she is feeling a lot better. Tolerated cardiac catheterization well yesterday. Denies any nausea, vomiting, headache. Denies any chest pain. Remains on 4 to 5 L oxygen supplementation. It seems patient has been on 5 L of oxygen supplementation for over last 1 to 2 months at [facility]. Vitals/I&O/Wt Last Vital Signs Temp 98.0 F 07/23/22 08:00 Pulse 56 L 07/23/22 15:23 Resp 20 H 07/23/22 15:21 BP 162/85 07/23/22 08:00 Pulse Ox 90 07/23/22 15:21 O2 Del Method Nasal Cannula 07/23/22 15:21 O2 Flow Rate 5 07/23/22 15:21 FiO2 40 07/21/22 08:00 07/23/22 07/23/22 07/23/22 06:59 14:59 22:59 Intake Total 870 / 1443.933 720 / 720 Output Total 300 / 2250 Balance 570 / -806.067 720 / 720 Physical Exam Const: COMMON NORMALS: no acute distress and patient oriented x3 HENMT: COMMON NORMALS: normocephalic HEAD & SCALP: normocephalic Eye: COMMON NORMALS: Equal, round and reactive pupils present PUPIL: Yes Equal, round and reactive pupils present Neck/C-Spine: COMMON NORMALS: no JVD Lymph: LYMPHATIC: no lymphadenopathy noted Resp: COMMON NORMALS: normal respiratory effort, No retractions, No use of accessory muscles and clear to auscultation bilaterally AUSCULTATION: clear to auscultation bilaterally and crackles Cardio: COMMON NORMALS: no JVD, regular rate, regular rhythm, S1 normal heart sound present and S2 normal heart sound present RATE: regular rate RHYTHM: regular rhythm HEART SOUNDS: S1 normal heart sound present and S2 normal heart sound present GI: COMMON NORMALS: Normal to inspection, nondistended, normoactive bowel sounds present, Soft to palpation and non-tender PALPATION: Yes Soft to palpation : COMMON NORMALS: Yes no CVA tenderness BLADDER/KIDNEY EXAM: Yes no CVA tenderness Back/Pelvis: COMMON NORMALS: no CVA tenderness Extremity: OTHER: Mild edema, right more than left. Neuro: COMMON NORMALS: patient oriented x3, CN's II-XII intact bilaterally, moves all extremities and no focal motor deficits Psych: COMMON NORMALS: mental status grossly normal Urinary Catheter Management: Sherman: Cath Placed During This Visit: yes Reason for Continuing Indwelling Catheter: Other Urinary Catheter Date of Insertion: 07/19/22 Urinary Catheter Time of Insertion: 22:45 Data 07/23/22 03:32 07/23/22 03:32 A&P Assessment and plan (1) Acute and chronic respiratory failure with hypoxia: (2) Acute non-ST elevation myocardial infarction (NSTEMI): (3) Positive cardiac stress test: (4) CHF exacerbation: Qualifiers: Heart failure type: diastolic Qualified Code(s): I50.33 - Acute on chronic diastolic (congestive) heart failure (5) Chronic obstructive pulmonary disease: (6) Paroxysmal A-fib: (7) AAA (abdominal aortic aneurysm): (8) Elevated d-dimer: (9) DVT, bilateral lower limbs: Qualifiers: Affected thrombotic vein of extremity: unspecified vein of extremity Chronicity: unspecified Qualified Code(s): I82.403 - Acute embolism and thrombosis of unspecified deep veins of lower extremity, bilateral (10) Pulmonary edema: (11) Retroperitoneal hematoma: Plan Acute on chronic hypoxic respiratory failure: Chronically on 4 to 5 L oxygen supplementation. In setting of congestive heart failure. Appreciate chest x-ray and elevated BNP. Echocardiogram done shows an EF of 55 to 60% with grade 1 diastolic dysfunction, mild aortic stenosis, RVSP of 40 to 45 mmHg consistent with mild pulmonary hypertension and mild TR. No regional wall motion abnormality. CT negative for pulmonary embolism. Will check lower limb Dopplers as well. For congestive heart failure continue with fluid restriction up to 1500 cc. Continue with Lasix 40 mg IV daily. Switch to oral Lasix in a.m. Net around 7L negative since admission. Strict input output charting, daily weights. Does have history of COPD. DuoNebs every 6 hour, budesonide twice daily. Wean to Solu-Medrol 40 mg IV daily. Wean off oxygen supplementation keeping saturation over 88%. Symptoms could be secondary to acute coronary syndrome. CAD: Positive stress test. Underwent cardiac catheterization on 07/22 which shows 20% distal narrowing of LMCA, 40 to 50% irregular narrowing in proximal to mid LAD, tortuous left c ircumflex with 30 to 40% diffuse irregular narrowing, completely occluded first RV branch of RCA. Given tortuosity plan was to continue medical management without any intervention revascularization. Continue with aspirin, statin, beta-lexi, nitrate 30 mg oral daily. Will uptitrate nitrate as per blood pressures. Echocardiogram negative for regional wall motion abnormality. Appreciate A1c, lipid panel. Continue with Plavix, statin, beta-lexi. Abdominal arctic aneurysm, 4 x 3.8 cm, with a large amount of mural thrombus in the aneurysm, no evidence of rupture. Paroxysmal A-fib: Continue with home dose of Cardizem 120 mg twice daily. Heart rate running on the low side today. Decrease metoprolol to 12.5 mg twice daily. DVT: Lower limb Dopplers done today consistent with bilateral indeterminate age DVTs. Anticoagulation. In May for retroperitoneal hematoma at that time. Hemoglobin so far has remained negative. CT abdomen pelvis done during this admission negative for any retroperitoneal hematoma Start on Eliquis 5 mg twice daily while monitoring hemoglobin. We will change further treatment as per results of the tests ordered. CODE STATUS: DNR/DNI. Protonix for PUD prophylaxis Lovenox for DVT prophylaxis Discharge planning: Patient has been accepted to [facility]. This is a new fdc as she is coming from [facility]. Plan to discharge in next 24 to 48 hours once switched over to oral Lasix. Attestations Medical Necessity Statement*: Requires further hospitalization for management of acute on chronic hypoxic respiratory failure in setting of congestive heart failure, COPD avolition, non- ST elevation NH, DVT Diagnoses Acute and chronic respiratory failure with hypoxia J96.21 Acute non-ST elevation myocardial infarction (NSTEMI) I21.4 Positive cardiac stress test R94.39 CHF exacerbation I50.33 Heart failure type: diastolic Chronic obstructive pulmonary disease J44.9 Paroxysmal A-fib I48.0 AAA (abdominal aortic aneurysm) I71.40 Elevated d-dimer R79.89 DVT, bilateral lower limbs I82.403 Affected thrombotic vein of extremity: unspecified vein of extremity Chronicity: unspecified Pulmonary edema J81.1 Retroperitoneal hematoma K66.1
--- NOTE | 2022-07-23 16:18 | P.PN_ITS ---
Subjective Subjective: The patient is doing okay with no chest pain or chest tightness. No unusual shortness of breath. The vital signs are remaining stable. Afebrile. No hematoma bleeding in the right groin. Medications: Medication Review Details: Current Medications Hydrocodone Bitart/Acetaminophen (Hydrocodone-Acetaminophen 5-325 Mg Tablet) 1 tab PO Q6H PRN PRN Reason: pain Last Admin: 07/22/22 19:44 Dose: 1 tab Al Hydrox/Mg Hydrox/Simethicone (Swdf-Fmg-Sfpjpydem-Dion 30 Ml Udc) 30 ml PO Q15M PRN PRN Reason: INDIGESTION Albuterol/Ipratropium (Ipratropium-Albuterol 3 Ml Neb) 3 ml INHALATION QID.RESPIRATORY GÓMEZ Last Admin: 07/23/22 15:21 Dose: 3 ml Albuterol/Ipratropium (Ipratropium-Albuterol 3 Ml Neb) 3 ml INHALATION Q4H.RESPIRATORY PRN PRN Reason: sob Last Admin: 07/23/22 04:46 Dose: 3 ml Alprazolam (Alprazolam 0.5 Mg Tablet) 0.25 mg PO BEDTIME GÓMEZ Last Admin: 07/22/22 21:33 Dose: 0.25 mg Aspirin (Aspirin 81 Mg Ec Tablet) 81 mg PO DAILY GÓMEZ Last Admin: 07/23/22 09:10 Dose: 81 mg Atorvastatin Calcium (Atorvastatin 40 Mg Tablet) 40 mg PO BEDTIME GÓMEZ Last Admin: 07/22/22 21:33 Dose: 40 mg Atropine Sulfate (Atropine 1 Mg/Ml Sdv 1 Ml) 0.5 mg IVP PRN PRN PRN Reason: Symptomatic bradycardia Budesonide (Budesonide 0.5 Mg/2 Ml Neb) 0.5 mg INHALATION BID.RESPIRATORY GÓMEZ Last Admin: 07/23/22 08:37 Dose: Not Given Diltiazem HCl (Diltiazem 60 Mg Tablet) 120 mg PO BID GÓMEZ Last Admin: 07/23/22 09:09 Dose: 120 mg Docusate Sodium (Docusate Sodium 100 Mg Capsule) 200 mg PO BID PRN PRN Reason: Constipation Last Admin: 07/23/22 09:15 Dose: 200 mg Escitalopram Oxalate (Escitalopram 10 Mg Tablet) 10 mg PO DAILY GÓMEZ Last Admin: 07/23/22 09:10 Dose: 10 mg Ferrous Sulfate (Ferrous Sulfate Ec 325 Mg Tablet) 325 mg PO BID [facility] Last Admin: 07/23/22 09:09 Dose: 325 mg Furosemide (Furosemide 10 Mg/Ml Sdv 4ml) 40 mg IVP Q24H [facility] Last Admin: 07/23/22 09:09 Dose: 40 mg Heparin Sodium (Porcine) (Heparin 5,000 Unit/Ml Inj 1 Ml) 0 unit IV PRN PRN; Protocol PRN Reason: Heparin weight-base protocol Heparin Sodium/Sodium Chloride (Heparin Drip) 25,000 unit in 500 mls @ 0 mls/hr IV .Q0M [facility]; Protocol Last Titration: 07/22/22 14:10 Dose: 0 unit/kg/hr, 0 mls/hr Isosorbide Mononitrate (Isosorbide Mononitrate Er 30 Mg Tablet) 30 mg PO DAILY [facility] Last Admin: 07/23/22 09:09 Dose: 30 mg Lanolin (Lanolin Oint 7 Gm) 1 applic TOPICAL PRN PRN PRN Reason: DRYNESS Last Admin: 07/21/22 14:40 Dose: 1 applic Magnesium Hydroxide (Magnesium Hydroxide 30 Ml Udc) 30 ml PO DAILY PRN PRN Reason: CONSTIPATION Methylprednisolone Sodium Succinate (Methylprednisolone Sod Succ 40 Mg/Ml Inj) 40 mg IVP DAILY [facility] Metoprolol Tartrate (Metoprolol Tartrate 25 Mg Tablet) 25 mg PO BID [facility] Last Admin: 07/23/22 09:09 Dose: 25 mg Mirtazapine (Mirtazapine 15 Mg Tablet) 15 mg PO DAILY [facility] Last Admin: 07/23/22 09:09 Dose: 15 mg Naloxone HCl (Naloxone 0.4 Mg/Ml Sdv) 0.1 mg IVP Q2M PRN PRN Reason: OPIATERV Nitroglycerin (Nitroglycerin 0.4 Mg Sublingual Tablet) 0.4 mg SUBLINGUAL Q5M PRN PRN Reason: CHEST PAIN Ondansetron HCl (Ondansetron 2 Mg/Ml Sdv 2 Ml) 4 mg IVP Q8H PRN PRN Reason: vomiting, or N/V if npo Ondansetron HCl (Ondansetron 2 Mg/Ml Sdv 2 Ml) 4 mg IVP Q2M PRN PRN Reason: NAUSEA Pantoprazole Sodium (Pantoprazole Dr 40 Mg Tablet) 40 mg PO DAILY [facility] Last Admin: 07/23/22 09:09 Dose: 40 mg Temazepam (Temazepam 15 Mg Capsule) 15 mg PO BEDTIME PRN PRN Reason: INSOMNIA Vitals/I&O/Wt Last Vital Signs Temp 98.0 F 07/23/22 08:00 Pulse 56 L 07/23/22 15:23 Resp 20 H 07/23/22 15:21 BP 162/85 07/23/22 08:00 Pulse Ox 90 07/23/22 15:21 O2 Del Method Nasal Cannula 07/23/22 15:21 O2 Flow Rate 5 07/23/22 15:21 FiO2 40 07/21/22 08:00 07/23/22 07/23/22 07/23/22 06:59 14:59 22:59 Intake Total 870 / 1443.933 720 / 720 Output Total 300 / 2250 Balance 570 / -806.067 720 / 720 Physical Exam Narrative: GENERAL: The patient is alert and oriented times three. Not in any acute distress. HEENT: No significant pallor, icterus or lymphadenopathy.Oral cavity: There are no mucous membrane lesions. NECK: Trachea appears to be central. No masses noted. No JVD or thyromegaly appreciated. RESPIRATORY: Chest is symmetrical. No intercostals muscle retraction or any accessory muscle activation. There is no chest wall tenderness. Breath sounds are heard bilaterally. No rales or rhonchi heard. No evidence of any consolidation. BREASTS: Deferred. HEART: The heart sounds are normal. No S3 or S4. Ejection systolic murmur of grade 3 or 6 in the aortic area. No pericardial rub ABDOMEN: No vessel pulsations or distention. No tenderness. No organomegaly appreciated. Bowel sounds are normally heard. : Deferred. RECTAL: Deferred. LYMPHATIC: No lymphadenopathy noted in the neck. EXTREMITIES: No edema or cyanosis. No clubbing. MUSCULOSKELETAL: No acute joint deformities or swelling SKIN: There are no significant rashes or ecchymosis NEUROPSYCHIATRIC: The patient is alert and oriented x3. Appears to be in a good mood. No tremors or rigidity noted. Urinary Catheter Management: Sherman: Cath Placed During This Visit: yes Reason for Continuing Indwelling Catheter: Other Urinary Catheter Date of Insertion: 07/19/22 Urinary Catheter Time of Insertion: 22:45 Data 07/23/22 03:32 07/23/22 03:32 Other Labs: Laboratory Last Values WBC 9.7 10^3/uL (4.0-10.0) 07/23/22 03:32 RBC 4.19 10^6/uL (4.1-5.3) 07/23/22 03:32 Hgb 10.5 g/dL (11.5-15.3) L 07/23/22 03:32 Hct 37.6 % (37.0-47.0) 07/23/22 03:32 MCV 89.7 fl (81-99) 07/23/22 03:32 MCH 25.1 pg (28.0-34.0) L 07/23/22 03:32 MCHC 27.9 g/dL (30.0-36.0) L 07/23/22 03:32 RDW 15.0 % (12.1-15.1) 07/23/22 03:32 Plt Count 241 10^3/cmm (130-400) 07/23/22 03:32 MPV 9.6 fL (7.4-10.4) 07/23/22 03:32 Neut % (Auto) 92.7 % 07/23/22 03:32 Lymph % (Auto) 3.3 % 07/23/22 03:32 [place] % (Auto) 3.6 % 07/23/22 03:32 Eos % (Auto) 0.0 % 07/23/22 03:32 Baso % (Auto) 0.1 % 07/23/22 03:32 Neut # (Auto) 8.98 10^3/uL (1.8-7.7) H 07/23/22 03:32 Lymph # (Auto) 0.3 10^3/uL (0.8-4.8) L 07/23/22 03:32 [place] # (Auto) 0.4 10^3/uL (0.2-0.9) 07/23/22 03:32 Eos # (Auto) 0.0 10^3/uL (0.0-0.8) 07/23/22 03:32 Baso # (Auto) 0.0 10^3/uL (0.0-0.1) 07/23/22 03:32 Nucleated RBC % (auto) 0 % 07/23/22 03:32 Nucleated RBCs # 0.0 /100WBC 07/23/22 03:32 APTT 37.7 SECONDS (23.9-36.7) H 07/22/22 17:51 D-Dimer 8.29 ug/mIFEU (0-0.59) H 07/21/22 10:35 Specimen Type Arterial 07/21/22 06:28 Sample Site Radial, right 07/21/22 06:28 ABG pH 7.44 (7.35-7.45) 07/21/22 06:28 ABG pCO2 49.5 mmHg (35-45) H 07/21/22 06:28 ABG pO2 85.5 mmHg (80.0-100.0) 07/21/22 06:28 ABG HCO3 33.9 mmol/L (22-26) H 07/21/22 06:28 ABG O2 Saturation 97.7 07/21/22 06:28 ABG Base Excess 8.5 mmol/L (-2.0-2.0) H 07/21/22 06:28 Duncan Test Pos 07/21/22 06:28 A-a O2 Gradient 17.9 mmHg (5-10) H 07/21/22 06:28 Hematocrit 34.3 % (37-47) L 07/21/22 06:28 Hgb O2 Saturation 95.8 % (95-100) 07/21/22 06:28 Carboxyhemoglobin 1.7 %THgb (0.4-20.1) 07/21/22 06:28 Methemoglobin 0.2 % (0.4-1.5) L 07/21/22 06:28 Total Hemoglobin 11.2 g/dL (12-16) L 07/21/22 06:28 Sodium 140.0 mmol/L (131-143) 07/21/22 06:28 Potassium 3.6 mmol/L (3.5-5.0) 07/21/22 06:28 Glucose 90.0 mg/dL (70-115) 07/21/22 06:28 Ionized Calcium 1.2 mmol/L (1.1-1.4) 07/21/22 06:28 O2 Delivery Device Bipap 07/21/22 06:28 FiO2 40.0 % 07/21/22 06:28 CPAP 6.0 cmH20 07/21/22 06:28 Social Organization Professor ID [email or web address] 07/21/22 06:28 Sodium 139 mmol/L (136-145) 07/23/22 03:32 Potassium 4.2 mmol/L (3.5-5.1) 07/23/22 03:32 Chloride 96 mmol/L (98-107) L 07/23/22 03:32 Carbon Dioxide 32 mmol/L (22-29) H 07/23/22 03:32 Anion Gap 15.2 (5-19) 07/23/22 03:32 BUN 33 mg/dL (8-23) H 07/23/22 03:32 Creatinine 0.5 mg/dL (0.5-0.9) 07/23/22 03:32 GFR Calculation Not Reportable 07/23/22 03:32 Glucose 117 mg/dL (65-115) H 07/23/22 03:32 Estimat Average Glucose 111 07/20/22 02:12 Hemoglobin A1c 5.5 % (4.0-6.0) 07/20/22 02:12 Calculated Osmolality 296 mOsm/kg (285-295) H 07/23/22 03:32 Lactic Acid 1.8 mmol/L (0.5-2.2) 07/19/22 19:24 Calcium 9.0 mg/dL (8.5-10.5) 07/23/22 03:32 Magnesium 1.9 mg/dL (1.7-2.3) 07/20/22 02:12 Total Bilirubin 0.3 mg/dL (0.15-1.2) 07/23/22 03:32 AST 18 U/L (0-32) 07/23/22 03:32 ALT 34 U/L (0-33) H 07/23/22 03:32 Alkaline Phosphatase 68 U/L (35-105) 07/23/22 03:32 Troponin T Baseline 24 ng/L (0-10) H 07/19/22 19:24 Troponin T 120 Minute 34.28 ng/L (0-10) H 07/19/22 21:30 Delta Troponin T 10.28 ABS# (0-10) H* 07/19/22 21:30 Troponin T Hi Sens 6Hr 37.73 ng/L (0-10) H 07/20/22 02:12 Troponin T Hi Sens 6Hr Delta 13.73 ng/L (0-12) H* 07/20/22 02:12 NT-Pro-B Natriuret Pep 8828 pg/mL (0-125) H 07/20/22 02:12 Total Protein 6.0 g/dL (6.6-8.7) L 07/23/22 03:32 Albumin 3.3 g/dL (3.5-5.2) L 07/23/22 03:32 Globulin 2.7 g/dL (1.3-4.6) 07/23/22 03:32 Triglycerides 44 mg/dL (0-150) 07/20/22 02:12 Cholesterol 219 mg/dL (0-200) H 07/20/22 02:12 LDL Cholesterol, Calc 136 mg/dL (50-129) H 07/20/22 02:12 Total VLDL Cholesterol 9 mg/dL (0-30) 07/20/22 02:12 HDL Cholesterol 74 mg/dL (60-100) 07/20/22 02:12 Cholesterol/HDL Ratio 2.96 mg/dL (0.0-4.40) 07/20/22 02:12 Lipase 17 U/L (13-60) 07/19/22 19:24 TSH 0.34 uIU/mL (0.27-4.20) 07/20/22 02:12 Urine Color Yellow (Yellow) 07/19/22 23:42 Urine Appearance Clear (CLEAR) 07/19/22 23:42 Urine pH 8 (5-7) H 07/19/22 23:42 Ur Specific [place] 1.010 (1.005-1.030) 07/19/22 23:42 Urine Protein Neg (Negative) 07/19/22 23:42 Urine Glucose (UA) Norm (Normal) 07/19/22 23:42 Urine Ketones Negative (Negative) 07/19/22 23:42 Urine Blood Neg (Negative) 07/19/22 23:42 Urine Nitrate Negative (Negative) 07/19/22 23:42 Urine Bilirubin Neg (Negative) 07/19/22 23:42 Prot Sulfosalicylic Acd Negative (Negative) 07/19/22 23:42 Urine Urobilinogen Norm mg/dL (Negative) 07/19/22 23:42 Ur Leukocyte Esterase Negative (Negative) 07/19/22 23:42 A&P Assessment and plan (1) Acute non-ST elevation myocardial infarction (NSTEMI): Status post cardiac catheterization revealing total occlusion of the right coronary artery with a fairly good left right collaterals and some bridging collaterals. Hemodynamically stable. May continue on the current medications. I may continue Plavix 75 mg p.o. daily for 3 months (2) Heart failure with preserved ejection fraction: Clinically compensated. May continue on the current medications. (3) Paroxysmal A-fib: Patient seems to be staying in the sinus rhythm at this point. Has not had any atrial fibrillation during this hospital admission. (4) AAA (abdominal aortic aneurysm): The aneurysm appears to be moderate and stable. (5) COPD exacerbation: She is currently back to her baseline status. However she has significant dyspnea on exertion which is somewhat unexplained. (6) Old cerebrovascular accident (CVA) without late effect: Seems to have no residual motor weakness at this point. (7) Retroperitoneal hematoma: Has no recurrence. (8) DVT, bilateral lower limbs: Has not had a recent DVT. Qualifiers: Affected thrombotic vein of extremity: unspecified vein of extremity Chronicity: unspecified Qualified Code(s): I82.403 - Acute embolism and thrombosis of unspecified deep veins of lower extremity, bilateral (9) Benign essential hypertension with target blood pressure below 140/90: The blood pressures are stage II. The antihypertensive medications need to be optimized. Plan Continue the aspirin Plavix for 3 months. Continue the medications as the days. Disposition as per the primary Attestations Medical Necessity Statement*: Deferred to the primary Coding Level of Care Code 44701 Diagnoses Acute non-ST elevation myocardial infarction (NSTEMI) I21.4 Heart failure with preserved ejection fraction I50.30 Paroxysmal A-fib I48.0 AAA (abdominal aortic aneurysm) I71.40 COPD exacerbation J44.1 Old cerebrovascular accident (CVA) without late effect Z86.73 Retroperitoneal hematoma K66.1 DVT, bilateral lower limbs I82.403 Affected thrombotic vein of extremity: unspecified vein of extremity Chronicity: unspecified Benign essential hypertension with target blood pressure below 140/90 I10
[2022-07-23] MEDS: metoprolol tartrate 25 mg Tablet 12.5 MG PO (17:25)
[2022-07-23] MEDS: budesonide 0.5 mg/2 mL Neb INHALATION (20:08)
[2022-07-23] MEDS: apixaban 5 mg Tablet PO (21:26)
[2022-07-23] MEDS: ALPRAZolam 0.5 mg Tablet 0.25 MG PO (21:26)
[2022-07-23] MEDS: atorvastatin 40 mg Tablet PO (21:26)
[2022-07-24] VITALS (29 sets, daily range): BP systolic 115–166; BP diastolic 44–84; PULSE 50–86; RESP 0–27; TEMP 36.6–37.2; O2SAT 87–98
[2022-07-24] MEDS: HYDROcodone-acetaminophen 5-325 mg Tablet 1 TAB PO (01:03)
[2022-07-24 04:50] LABS: Hematocrit 35.8 % (37.0-47.0); Hemoglobin 10.3 g/dL (11.5-15.3); Lymphocytes # 0.5 10^3/uL (0.8-4.8); Lymphocytes % 4.9 %; Mean Corpuscular HGB Conc 28.8 g/dL (30.0-36.0); Mean Corpuscular Hemoglobin 25.4 pg (28.0-34.0); Mean Corpuscular Volume 88.2 fl (81-99); Mean Platelet Volume 9.9 fL (7.4-10.4); Monocytes # 0.8 10^3/uL (0.2-0.9); Monocytes % 8.3 %; Neutrophils % 85.8 %; Nucleated Red Blood Cells % 0 %; Platelet Count 243 10^3/cmm (130-400); Red Blood Count 4.06 10^6/uL (4.1-5.3); White Blood Count 9.4 10^3/uL (4.0-10.0)
[2022-07-24 05:23] LABS: Alanine Aminotransferase 26 U/L (0-33); Albumin Level 3.4 g/dL (3.5-5.2); Alkaline Phosphatase 63 U/L (35-105); Anion Gap 12.7 (5-19); Aspartate Amino Transferase 11 U/L (0-32); Blood Urea Nitrogen 41 mg/dL (8-23); Calcium 8.8 mg/dL (8.5-10.5); Carbon Dioxide 35 mmol/L (22-29); Chloride 93 mmol/L (98-107); Globulin 2.5 g/dL (1.3-4.6); Glucose 132 mg/dL (65-115); Osmolality Calculated 296 mOsm/kg (285-295); Potassium 3.7 mmol/L (3.5-5.1); Sodium 137 mmol/L (136-145); Total Bilirubin 0.2 mg/dL (0.15-1.2); Total Protein 5.9 g/dL (6.6-8.7)
[2022-07-24] MEDS: budesonide 0.5 mg/2 mL Neb INHALATION ×2 (07:23→19:33)
[2022-07-24] MEDS: ipratropium-albuterol 3 mL Neb INHALATION ×4 (07:23→19:33)
--- NOTE | 2022-07-24 09:15 | P.PN_ITS ---
Subjective Subjective: No acute events overnight. Patient remains comfortably in bed. States she is feeling a lot better. Tolerated cardiac catheterization well yesterday. Denies any nausea, vomiting, headache. Denies any chest pain. Remains on 4 to 5 L oxygen supplementation. It seems patient has been on 5 L of oxygen supplementation for over [facility]. Vitals/I&O/Wt Last Vital Signs Temp 97.8 F 07/24/22 08:00 Pulse 70 07/24/22 08:00 Resp 22 H 07/24/22 08:00 BP 151/74 07/24/22 08:00 Pulse Ox 92 07/24/22 08:00 O2 Del Method Nasal Cannula 07/24/22 08:00 O2 Flow Rate 5 07/24/22 07:26 FiO2 40 07/23/22 16:00 07/23/22 07/24/22 07/24/22 22:59 06:59 14:59 Intake Total 240 / 960 860 / 1820 240 / 240 Output Total 1800 / 1800 400 / 2200 Balance -1560 / -840 460 / -380 240 / 240 Physical Exam Const: COMMON NORMALS: no acute distress and patient oriented x3 HENMT: COMMON NORMALS: normocephalic HEAD & SCALP: normocephalic Eye: COMMON NORMALS: Equal, round and reactive pupils present PUPIL: Yes Equal, round and reactive pupils present Neck/C-Spine: COMMON NORMALS: no JVD Lymph: LYMPHATIC: no lymphadenopathy noted Resp: COMMON NORMALS: normal respiratory effort, No retractions, No use of acc essory muscles and clear to auscultation bilaterally AUSCULTATION: clear to auscultation bilaterally and crackles Cardio: COMMON NORMALS: no JVD, regular rate, regular rhythm, S1 normal heart sound present and S2 normal heart sound present RATE: regular rate RHYTHM: regular rhythm HEART SOUNDS: S1 normal heart sound present and S2 normal heart sound present GI: COMMON NORMALS: Normal to inspection, nondistended, normoactive bowel sounds present, Soft to palpation and non-tender PALPATION: Yes Soft to palpation : COMMON NORMALS: Yes no CVA tenderness BLADDER/KIDNEY EXAM: Yes no CVA tenderness Back/Pelvis: COMMON NORMALS: no CVA tenderness Extremity: OTHER: Mild edema, right more than left. Neuro: COMMON NORMALS: patient oriented x3, CN's II-XII intact bilaterally, moves all extremities and no focal motor deficits Psych: COMMON NORMALS: mental status grossly normal Urinary Catheter Management: Shreman: Cath Placed During This Visit: yes Reason for Continuing Indwelling Catheter: Acute Urinary Retention or Obstruction Urinary Catheter Date of Insertion: 07/19/22 Urinary Catheter Time of Insertion: 22:45 Data 07/24/22 03:31 07/24/22 03:31 A&P Assessment and plan (1) Acute and chronic respiratory failure with hypoxia: (2) Acute non-ST elevation myocardial infarction (NSTEMI): (3) Positive cardiac stress test: (4) CHF exacerbation: Qualifiers: Heart failure type: diastolic Qualified Code(s): I50.33 - Acute on chronic diastolic (congestive) heart failure (5) Chronic obstructive pulmonary disease: (6) Paroxysmal A-fib: (7) AAA (abdominal aortic aneurysm): (8) Elevated d-dimer: (9) DVT, bilateral lower limbs: Qualifiers: Affected thrombotic vein of extremity: unspecified vein of extremity Chronicity: unspecified Qualified Code(s): I82.403 - Acute embolism and thrombosis of unspecified deep veins of lower extremity, bilateral (10) Pulmonary edema: (11) Retroperitoneal hematoma: Plan Acute on chronic hypoxic respiratory failure: Chronically on 4 to 5 L oxygen supplementation. In setting of congestive heart failure. Appreciate chest x-ray and elevated BNP. Echocardiogram done shows an EF of 55 to 60% with grade 1 diastolic dysfunction, mild aortic stenosis, RVSP of 40 to 45 mmHg consistent with mild pulmonary hypertension and mild TR. No regional wall motion abnormality. CT negative for pulmonary embolism. Will check lower limb Dopplers as well. For congestive heart failure continue with fluid restriction up to 1500 cc. Continue with Lasix 40 mg IV daily. Switch to oral Lasix in a.m. Net around 7L negative since admission. Monitor electrolytes and replete potassium accordingly. Strict input output charting, daily weights. Does have history of COPD. DuoNebs every 6 hour, budesonide twice daily. Wean to Solu-Medrol 40 mg IV daily. Wean off oxygen supplementation keeping saturation over 88%. Symptoms could be secondary to acute coronary syndrome. CAD: Positive stress test. Underwent cardiac catheterization on 07/22 which shows 20% distal narrowing of LMCA, 40 to 50% irregular narrowing in proximal to mid LAD, tortuous left circumflex with 30 to 40% diffuse irregular narrowing, completely occluded first RV branch of RCA. Given tortuosity plan was to continue medical management without any intervention revascularization. Continue with aspirin, statin, beta-lexi, nitrate 30 mg oral daily. Will uptitrate nitrate as per blood pressures. Echocardiogram negative for regional wall motion abnormality. Appreciate A1c, lipid panel. Continue with Plavix, statin, beta-lexi. Abdominal arctic aneurysm, 4 x 3.8 cm, with a large amount of mural thrombus in the aneurysm, no evidence of rupture. Paroxysmal A-fib: Continue with home dose of Cardizem 120 mg twice daily. Heart rate running on the low side today. Decrease metoprolol to 12.5 mg twice daily. DVT: Lower limb Dopplers done today consistent with bilateral indeterminate age DVTs. Anticoagulation. In May for retroperitoneal hematoma at that time. Hemoglobin so far has remained negative. CT abdomen pelvis done during this admission negative for any retroperitoneal hematoma Start on Eliquis 5 mg twice daily while monitoring hemoglobin. We will change further treatment as per results of the tests ordered. CODE STATUS: DNR/DNI. Protonix for PUD prophylaxis Lovenox for DVT prophylaxis Discharge planning: Patient has been accepted to [facility]. [facility] a new pen[facility]iary as she is coming from [facility]. Plan to discharge in next 24 to 48 hours once switched over to oral Lasix. Attestations Medical Necessity Statement*: Requires further hospitalization for hypoxic respiratory failure in setting of congestive heart failure, non-ST elevation NM, paroxysmal A-fib, new DVT Diagnoses Acute and chronic respiratory failure with hypoxia J96.21 Acute non-ST elevation myocardial infarction (NSTEMI) I21.4 Positive cardiac stress test R94.39 CHF exacerbation I50.33 Heart failure type: diastolic Chronic obstructive pulmonary disease J44.9 Paroxysmal A-fib I48.0 AAA (abdominal aortic aneurysm) I71.40 Elevated d-dimer R79.89 DVT, bilateral lower limbs I82.403 Affected thrombotic vein of extremity: unspecified vein of extremity Chronicity: unspecified Pulmonary edema J81.1 Retroperitoneal hematoma K66.1
--- NOTE | 2022-07-24 09:40 | PM.PN ---
Subjective Subjective: Lisset is 72 years old and was admitted on the with chest pain, shortness of breath and elevated troponin. Her stress test was abnormal. Angiography revealed an occluded right coronary artery. She is being treated medically. She awaits care home placement which is to occur Tuesday. She has underlying COPD, hypertension, atrial fibrillation, tobacco abuse, AAA, history of DVT, lung cancer, heart failure, moderate aortic stenosis, stroke and history of a retroperitoneal bleed. Today she offers no complaints. Vitals/I&O/Wt Last Vital Signs Temp 97.8 F 07/24/22 08:00 Pulse 70 07/24/22 08:00 Resp 22 H 07/24/22 08:00 BP 151/74 07/24/22 08:00 Pulse Ox 92 07/24/22 08:00 O2 Del Method Nasal Cannula 07/24/22 08:00 O2 Flow Rate 5 07/24/22 07:26 FiO2 40 07/23/22 16:00 07/23/22 07/24/22 07/24/22 22:59 06:59 14:59 Intake Total 240 / 960 860 / 1820 240 / 240 Output Total 1800 / 1800 400 / 2200 Balance -1560 / -840 460 / -380 240 / 240 Physical Exam Narrative: GENERAL: In general she looks and feels well HEENT: Exam within normal limits. NECK: Supple without jugular vein distention. The carotid upstroke is normal without bruits. BACK: Exam normal. LUNGS: Clear. HEART: Regular rate and rhythm. ABDOMEN: Benign without organomegaly or tenderness. EXTREMITIES: No edema. NEUROLOGIC: Exam normal. SKIN: Unremarkable. Urinary Catheter Management: Sherman: Cath Placed During This Visit: yes Reason for Continuing Indwelling Catheter: Acute Urinary Retention or Obstruction Urinary Catheter Date of Insertion: 07/19/22 Urinary Catheter Time of Insertion: 22:45 Data 07/24/22 03:31 07/24/22 03:31 A&P Assessment and plan (1) Benign essential hypertension with target blood pressure below 140/90: (2) Moderate aortic stenosis: (3) COPD exacerbation: (4) Heart failure with preserved ejection fraction: (5) Elevated troponin: (6) Acute and chronic respiratory failure with hypoxia: (7) DVT, bilateral lower limbs: Qualifiers: Affected thrombotic vein of extremity: unspecified vein of extremity Chronicity: unspecified Qualified Code(s): I82.403 - Acute embolism and thrombosis of unspecified deep veins of lower extremity, bilateral (8) Retroperitoneal hematoma: (9) AAA (abdominal aortic aneurysm): (10) Paroxysmal A-fib: (11) Nicotine addiction: (12) Old cerebrovascular accident (CVA) without late effect: (13) Chronic obstructive pulmonary disease: Plan Her cardiac status is stable. Await care home transfer. Attestations Medical Necessity Statement*: Awaiting care home transfer. Hospitalization for above-mentioned medical problems. and Straight Forward/Low Time for a total of 15 minutes, includes reviewing past or interval history, examining/interviewing patient, updating patient/family/other support and documenting encounter Diagnoses Benign essential hypertension with target blood pressure below 140/90 I10 Moderate aortic stenosis I35.0 COPD exacerbation J44.1 Heart failure with preserved ejection fraction I50.30 Elevated troponin R77.8 Acute and chronic respiratory failure with hypoxia J96.21 DVT, bilateral lower limbs I82.403 Affected thrombotic vein of extremity: unspecified vein of extremity Chronicity: unspecified Retroperitoneal hematoma K66.1 AAA (abdominal aortic aneurysm) I71.40 Paroxysmal A-fib I48.0 Nicotine addiction F17.200 Old cerebrovascular accident (CVA) without late effect Z86.73 Chronic obstructive pulmonary disease J44.9
--- NOTE | 2022-07-24 10:27 | PC.SOCIAL ---
IMM Updated Updated pt on IMM. No questions voiced. Provided pt a copy. Initialed, dated, & timed copy in chart.
[2022-07-24] MEDS: dilTIAZem 60 mg Tablet 120 MG PO ×2 (10:36→18:58)
[2022-07-24] MEDS: isosorbide mononitrate ER 30 mg Tablet PO ×2 (10:36→18:51)
[2022-07-24] MEDS: docusate sodium 100 mg Capsule 200 MG PO (10:37)
[2022-07-24] MEDS: ferrous sulfate EC 325 mg Tablet PO ×2 (10:37→18:49)
[2022-07-24] MEDS: mirtazapine 15 mg Tablet PO (10:37)
[2022-07-24] MEDS: pantoprazole DR 40 mg Tablet PO (10:38)
[2022-07-24] MEDS: FUROsemide 40 mg Tablet PO (10:38)
[2022-07-24] MEDS: metoprolol tartrate 25 mg Tablet 12.5 MG PO ×2 (10:38→18:48)
[2022-07-24] MEDS: escitalopram 10 mg Tablet PO (10:39)
[2022-07-24] MEDS: aspirin 81 mg EC Tablet PO (10:39)
[2022-07-24] MEDS: apixaban 5 mg Tablet PO ×2 (10:40→21:21)
--- NOTE | 2022-07-24 11:08 | PC.NURSE ---
Patient did get very SOB with activity.O2 saturation did drop down to the mid-70's. O2 was increased to 5 l. Patient was able to recover within a couple of mins. O2 was returned to 3l. Patient's work of breathing and SOB has improved.
[2022-07-24] MEDS: atorvastatin 40 mg Tablet PO (21:21)
[2022-07-24] MEDS: ALPRAZolam 0.5 mg Tablet 0.25 MG PO (21:21)
[2022-07-25] VITALS (30 sets, daily range): BP systolic 115–153; BP diastolic 48–75; PULSE 49–88; RESP 16–30; TEMP 36.7; O2SAT 83–96
[2022-07-25 04:01] LABS: Basophils % 0.1 %; Hematocrit 34.5 % (37.0-47.0); Hemoglobin 9.8 g/dL (11.5-15.3); Lymphocytes # 0.4 10^3/uL (0.8-4.8); Lymphocytes % 4.6 %; Mean Corpuscular HGB Conc 28.4 g/dL (30.0-36.0); Mean Corpuscular Hemoglobin 25.5 pg (28.0-34.0); Mean Corpuscular Volume 89.6 fl (81-99); Monocytes # 0.8 10^3/uL (0.2-0.9); Neutrophils # 7.82 10^3/uL (1.8-7.7); Neutrophils % 85.2 %; Nucleated Red Blood Cells % 0 %; Platelet Count 198 10^3/cmm (130-400); Red Blood Count 3.85 10^6/uL (4.1-5.3); Red Cell Distribution Width 15.2 % (12.1-15.1); White Blood Count 9.2 10^3/uL (4.0-10.0)
[2022-07-25 04:33] LABS: Alanine Aminotransferase 21 U/L (0-33); Albumin Level 3.2 g/dL (3.5-5.2); Alkaline Phosphatase 57 U/L (35-105); Anion Gap 12.8 (5-19); Aspartate Amino Transferase 11 U/L (0-32); Blood Urea Nitrogen 34 mg/dL (8-23); Calcium 8.4 mg/dL (8.5-10.5); Carbon Dioxide 33 mmol/L (22-29); Chloride 97 mmol/L (98-107); Globulin 2.1 g/dL (1.3-4.6); Glucose 146 mg/dL (65-115); Osmolality Calculated 298 mOsm/kg (285-295); Potassium 3.8 mmol/L (3.5-5.1); Sodium 139 mmol/L (136-145); Total Bilirubin 0.2 mg/dL (0.15-1.2); Total Protein 5.3 g/dL (6.6-8.7)
[2022-07-25] MEDS: ipratropium-albuterol 3 mL Neb INHALATION ×5 (04:43→20:21)
[2022-07-25] MEDS: budesonide 0.5 mg/2 mL Neb INHALATION ×2 (07:12→20:21)
[2022-07-25] MEDS: FUROsemide 40 mg Tablet PO (08:23)
[2022-07-25] MEDS: metoprolol tartrate 25 mg Tablet 12.5 MG PO ×2 (08:26→18:40)
[2022-07-25] MEDS: ferrous sulfate EC 325 mg Tablet PO ×2 (08:27→18:41)
[2022-07-25] MEDS: mirtazapine 15 mg Tablet PO (08:27)
[2022-07-25] MEDS: pantoprazole DR 40 mg Tablet PO (08:27)
[2022-07-25] MEDS: isosorbide mononitrate ER 30 mg Tablet PO ×2 (08:27→18:41)
[2022-07-25] MEDS: dilTIAZem 60 mg Tablet 120 MG PO ×2 (08:27→18:41)
[2022-07-25] MEDS: escitalopram 10 mg Tablet PO (08:27)
[2022-07-25] MEDS: apixaban 5 mg Tablet PO ×2 (08:30→20:48)
[2022-07-25] MEDS: aspirin 81 mg EC Tablet PO (08:30)
--- NOTE | 2022-07-25 08:30 | P.PN_ITS ---
Subjective Subjective: Lisset had an uneventful night. She was mildly short of breath at 1 point but a breathing treatment helped. She is hungry this morning. Vitals/I&O/Wt Last Vital Signs Temp 98.0 F 07/25/22 04:00 Pulse 78 07/25/22 07:14 Resp 18 07/25/22 07:14 BP 146/62 07/25/22 04:00 Pulse Ox 92 07/25/22 07:14 O2 Del Method Nasal Cannula 07/25/22 07:14 O2 Flow Rate 4.5 07/25/22 07:14 FiO2 40 07/24/22 20:00 07/24/22 07/25/22 07/25/22 22:59 06:59 14:59 Intake Total 480 / 960 400 / 1360 Output Total 220 / 460 200 / 660 Balance 260 / 500 200 / 700 Physical Exam Narrative: GENERAL: In general she is awake alert and in no distress HEENT: Exam within normal limits. NECK: Supple without jugular vein distention. The carotid upstroke is normal without bruits. BACK: Exam normal. LUNGS: Clear. HEART: Regular rate and rhythm. ABDOMEN: Benign without organomegaly or tenderness. EXTREMITIES: No edema. NEUROLOGIC: Exam normal. SKIN: Unremarkable. Urinary Catheter Management: Sherman: Cath Placed During This Visit: yes, but has since been removed by the nurse Reason for Continuing Indwelling Catheter: Accurate Measurement of Urinary Output in Critically Ill Patients Urinary Catheter Date of Insertion: 07/19/22 Urinary Catheter Time of Insertion: 22:45 Date Urinary Catheter Removed: 07/24/22 Time Urinary Catheter Discontinued: 10:46 Data 07/25/22 03:16 07/25/22 03:16 A&P Assessment and plan (1) Benign essential hypertension with target blood pressure below 140/90: (2) Moderate aortic stenosis: (3) COPD exacerbation: (4) Heart failure with preserved ejection fraction: (5) Acute and chronic respiratory failure with hypoxia: (6) AAA (abdominal aortic aneurysm): (7) Paroxysmal A-fib: (8) Nicotine addiction: Plan No change in plan. Await intermediate placement tomorrow. Attestations Medical Necessity Statement*: Hospital stay for above-mentioned medical problems for 1 more day. and Straight Forward/Low Time for a total of 15 minutes, includes reviewing past or interval history, examining/interviewing patient and documenting encounter Diagnoses Benign essential hypertension with target blood pressure below 140/90 I10 Moderate aortic stenosis I35.0 COPD exacerbation J44.1 Heart failure with preserved ejection fraction I50.30 Acute and chronic respiratory failure with hypoxia J96.21 AAA (abdominal aortic aneurysm) I71.40 Paroxysmal A-fib I48.0 Nicotine addiction F17.200
[2022-07-25] MEDS: docusate sodium 100 mg Capsule 200 MG PO ×2 (08:32→18:41)
--- NOTE | 2022-07-25 14:31 | PM.PN ---
Subjective Subjective: No acute events overnight. Patient has remained hemodynamically stable and afebrile. Denies any nausea, vomiting, headache. Continues to remain on 4 to 4.5 L of oxygen supplementation which is better than 5 L home oxygen supplementation. States feeling a lot better. Sat up in chair for few hours in the evening yesterday. Vitals/I&O/Wt Last Vital Signs Temp 98.0 F 07/25/22 04:00 Pulse 67 07/25/22 12:00 Resp 18 07/25/22 12:00 BP 119/56 07/25/22 11:31 Pulse Ox 92 07/25/22 12:00 O2 Del Method Nasal Cannula 07/25/22 12:00 O2 Flow Rate 4 07/25/22 12:00 FiO2 40 07/24/22 20:00 07/24/22 07/25/22 07/25/22 22:59 06:59 14:59 Intake Total 480 / 960 400 / 1360 480 / 480 Output Total 220 / 460 200 / 660 750 / 750 Balance 260 / 500 200 / 700 -270 / -270 Physical Exam Const: COMMON NORMALS: no acute distress and patient oriented x3 HENMT: COMMON NORMALS: normocephalic HEAD & SCALP: normocephalic Eye: COMMON NORMALS: Equal, round and reactive pupils present PUPIL: Yes Equal, round and reactive pupils present Neck/C-Spine: COMMON NORMALS: no JVD Lymph: LYMPHATIC: no lymphadenopathy noted Resp: COMMON NORMALS: normal respiratory effort, No retractions, No use of accessory muscles and clear to auscultation bilaterally AUSCULTATION: clear to auscultation bilaterally and crackles Cardio: COMMON NORMALS: no JVD, regular rate, regular rhythm, S1 normal heart sound present and S2 normal heart sound present RATE: regular rate RHYTHM: regular rhythm HEART SOUNDS: S1 normal heart sound present and S2 normal heart sound present GI: COMMON NORMALS: Normal to inspection, nondistended, normoactive bowel sounds present, Soft to palpation and non-tender PALPATION: Yes Soft to palpation : COMMON NORMALS: Yes no CVA tenderness BLADDER/KIDNEY EXAM: Yes no CVA tenderness Back/Pelvis: COMMON NORMALS: no CVA tenderness Extremity: OTHER: Mild edema, right more than left. Neuro: COMMON NORMALS: patient oriented x3, CN's II-XII intact bilaterally, moves all extremities and no focal motor deficits Psych: COMMON NORMALS: mental status grossly normal Urinary Catheter Management: Sherman: Cath Placed During This Visit: yes, but has since been removed by the nurse Reason for Continuing Indwelling Catheter: Accurate Measurement of Urinary Output in Critically Ill Patients Urinary Catheter Date of Insertion: 07/19/22 Urinary Catheter Time of Insertion: 22:45 Date Urinary Catheter Removed: 07/24/22 Time Urinary Catheter Discontinued: 10:46 Data 07/25/22 03:16 07/25/22 03:16 A&P Assessment and plan (1) Acute and chronic respiratory failure with hypoxia: (2) Acute non-ST elevation myocardial infarction (NSTEMI): (3) Positive cardiac stress test: (4) CHF exacerbation: Qualifiers: Heart failure type: diastolic Qualified Code(s): I50.33 - Acute on chronic diastolic (congestive) heart failure (5) Chronic obstructive pulmonary disease: (6) Paroxysmal A-fib: (7) AAA (abdominal aortic aneurysm): (8) Elevated d-dimer: (9) DVT, bilateral lower limbs: Qualifiers: Affected thrombotic vein of extremity: unspecified vein of extremity Chronicity: unspecified Qualified Code(s): I82.403 - Acute embolism and thrombosis of unspecified deep veins of lower extremity, bilateral (10) Pulmonary edema: (11) Retroperitoneal hematoma: Plan Acute on chronic hypoxic respiratory failure: Chronically on 4 to 5 L oxygen supplementation. In setting of congestive heart failure. Appreciate chest x-ray and elevated BNP. Echocardiogram done shows an EF of 55 to 60% with grade 1 diastolic dysfunction, mild aortic stenosis, RVSP of 40 to 45 mmHg consistent with mild pulmonary hypertension and mild TR. No regional wall motion abnormality. CT negative for pulmonary embolism. Will check lower limb Dopplers as well. For congestive heart failure continue with fluid restriction up to 1500 cc. Continue with Lasix 40 mg IV daily. Switch to oral Lasix in a.m. Net around 7L negative since admission. Monitor electrolytes and replete potassium accordingly. Strict input output charting, daily weights. Does have history of COPD. DuoNebs every 6 hour, budesonide twice daily. Wean to Solu-Medrol 40 mg IV daily. Wean off oxygen supplementation keeping saturation over 88%. Symptoms could be secondary to acute coronary syndrome. CAD: Positive stress test. Underwent cardiac catheterization on 04/20 which shows 20% distal narrowing of LMCA, 40 to 50% irregular narrowing in proximal to mid LAD, tortuous left circumflex with 30 to 40% diffuse irregular narrowing, completely occluded first RV branch of RCA. Given tortuosity plan was to continue medical management without any intervention revascularization. Continue with aspirin, statin, beta-lexi, nitrate 30 mg oral daily. Will uptitrate nitrate as per blood pressures. Echocardiogram negative for regional wall motion abnormality. Appreciate A1c, lipid panel. Continue with Plavix, statin, beta-lexi. Abdominal arctic aneurysm, 4 x 3.8 cm, with a large amount of mural thrombus in the aneurysm, no evidence of rupture. Paroxysmal A-fib: Continue with home dose of Cardizem 120 mg twice daily. Heart rate running on the low side today. Decrease metoprolol to 12.5 mg twice daily. DVT: Lower limb Dopplers done today consistent with bilateral indeterminate age DVTs. Anticoagulation. In May for retroperitoneal hematoma at that time. Hemoglobin so far has remained negative. CT abdomen pelvis done during this admission negative for any retroperitoneal hematoma Start on Eliquis 5 mg twice daily while monitoring hemoglobin. We will change further treatment as per results of the tests ordered. CODE STATUS: DNR/DNI. Protonix for PUD prophylaxis Lovenox for DVT prophylaxis Plan for the day: Continue with inhalation treatment, oral Lasix 40 mg daily. Continue with Cardizem at home dose along with metoprolol. Blood pressure slightly elevated. For now we will continue to monitor and continue with Medication of Imdur 30 mg twice daily. Switch from Solu-Medrol 40 mg IV daily to prednisone 40 mg oral daily. Most likely will be discharged on prednisone taper as an outpatient. Continue with Eliquis 5 mg twice daily. Monitor hemoglobin. So far stable. Most likely will advise patient to repeat CBC in a week. Discharge planning: Plan to discharge tomorrow to skilled nursing. Patient lives at [facility] and has been accepted at [facility]. Plan to discharge to SNF tomorrow as patient is medically stable and skilled nursing could not take patient over the weekend. Attestations Medical Necessity Statement*: Requires further hospitalization for management of hypoxic respiratory failure in setting of congestive heart failure, CAD with positive stress test post cardiac angiogram, atrial fibrillation, new DVT Diagnoses Acute and chronic respiratory failure with hypoxia J96.21 Acute non-ST elevation myocardial infarction (NSTEMI) I21.4 Positive cardiac stress test R94.39 CHF exacerbation I50.33 Heart failure type: diastolic Chronic obstructive pulmonary disease J44.9 Paroxysmal A-fib I48.0 AAA (abdominal aortic aneurysm) I71.40 Elevated d-dimer R79.89 DVT, bilateral lower limbs I82.403 Affected thrombotic vein of extremity: unspecified vein of extremity Chronicity: unspecified Pulmonary edema J81.1 Retroperitoneal hematoma K66.1
[2022-07-25] MEDS: ALPRAZolam 0.5 mg Tablet 0.25 MG PO (20:48)
[2022-07-25] MEDS: atorvastatin 40 mg Tablet PO (20:48)
[2022-07-25 22:33] LABS: SARS Covid-2 Antigen negative (Negative)
[2022-07-26] VITALS (10 sets, daily range): BP systolic 117–160; BP diastolic 41–93; PULSE 57–79; RESP 17–23; TEMP 36.8–37; O2SAT 89–94
[2022-07-26] MEDS: temazepam 15 mg Capsule PO (00:05)
[2022-07-26 04:39] LABS: Basophils % 0.2 %; Eosinophils # 0.2 10^3/uL (0.0-0.8); Eosinophils % 1.8 %; Hematocrit 34.5 % (37.0-47.0); Hemoglobin 9.9 g/dL (11.5-15.3); Lymphocytes # 1.1 10^3/uL (0.8-4.8); Lymphocytes % 12.5 %; Mean Corpuscular HGB Conc 28.7 g/dL (30.0-36.0); Mean Corpuscular Hemoglobin 25.7 pg (28.0-34.0); Mean Corpuscular Volume 89.6 fl (81-99); Mean Platelet Volume 9.9 fL (7.4-10.4); Monocytes % 11.8 %; Neutrophils # 6.21 10^3/uL (1.8-7.7); Neutrophils % 72.4 %; Nucleated Red Blood Cells % 0 %; Platelet Count 187 10^3/cmm (130-400); Red Blood Count 3.85 10^6/uL (4.1-5.3); Red Cell Distribution Width 15.4 % (12.1-15.1); White Blood Count 8.6 10^3/uL (4.0-10.0)
[2022-07-26 04:57] LABS: Alanine Aminotransferase 19 U/L (0-33); Albumin Level 3.3 g/dL (3.5-5.2); Alkaline Phosphatase 55 U/L (35-105); Anion Gap 9.5 (5-19); Aspartate Amino Transferase 11 U/L (0-32); Blood Urea Nitrogen 30 mg/dL (8-23); Calcium 8.1 mg/dL (8.5-10.5); Carbon Dioxide 35 mmol/L (22-29); Chloride 98 mmol/L (98-107); Glucose 98 mg/dL (65-115); Osmolality Calculated 294 mOsm/kg (285-295); Potassium 3.5 mmol/L (3.5-5.1); Sodium 139 mmol/L (136-145); Total Bilirubin 0.3 mg/dL (0.15-1.2); Total Protein 5.3 g/dL (6.6-8.7)
[2022-07-26] MEDS: ipratropium-albuterol 3 mL Neb INHALATION ×3 (05:28→11:49)
[2022-07-26] MEDS: budesonide 0.5 mg/2 mL Neb INHALATION (07:24)
[2022-07-26] MEDS: escitalopram 10 mg Tablet PO (08:43)
[2022-07-26] MEDS: mirtazapine 15 mg Tablet PO (08:43)
[2022-07-26] MEDS: metoprolol tartrate 25 mg Tablet 12.5 MG PO (08:43)
[2022-07-26] MEDS: docusate sodium 100 mg Capsule 200 MG PO (08:44)
[2022-07-26] MEDS: isosorbide mononitrate ER 30 mg Tablet PO (08:44)
[2022-07-26] MEDS: FUROsemide 40 mg Tablet PO (08:44)
[2022-07-26] MEDS: predniSONE 20 mg Tablet 40 MG PO (08:44)
[2022-07-26] MEDS: pantoprazole DR 40 mg Tablet PO (08:45)
[2022-07-26] MEDS: dilTIAZem 60 mg Tablet 120 MG PO (08:45)
[2022-07-26] MEDS: ferrous sulfate EC 325 mg Tablet PO (08:45)
[2022-07-26] MEDS: aspirin 81 mg EC Tablet PO (08:46)
[2022-07-26] MEDS: apixaban 5 mg Tablet PO (08:48)
--- NOTE | 2022-07-26 12:08 | PC.SOCIAL ---
IMM update IMM updated with patient. Verbalized an understanding. Copy PG 2 provided. Initialled, dated, timed, and placed in chart.
--- NOTE | 2022-07-26 13:42 | P.DS_ITS ---
Discharge Providers Date of Admission: 07/19/22 23:20 Date of Discharge: July 26, 2022 Attending Provider at Admission: Paulo Tran MD Attending Provider at Discharge: Vanesa Rodríguez MD Consults: Dr Harvey with cardiology Primary Care Provider: Thompson Zuluaga MD Diagnoses at Discharge Discharge Diagnosis (1) Chest pain: Status: Acute (2) Acute non-ST elevation myocardial infarction (NSTEMI): Status: Acute (3) Positive cardiac stress test: Details from hospital stay: Myocardial perfusion imaging with medium sized area of prior infarction with kiki-infarct ischemia noted in apical, apical lateral and inferior jefferson. Natasha ent subsequently underwent cardiac catheterization on July 22. 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 She had a highly tortuous circumflex and LAD with mild to moderate diffuse disease in the proximal segments. Given the tortuosity of the vessels, cardiology recommendations at this time in the setting of comorbid conditions was for medical management. Status: Inactive (4) CHF exacerbation: Details from hospital stay: acute on chronic with preserved ejection fraction, negative eight liter fluid balance this stay Status: Acute Qualifiers: Heart failure type: diastolic Qualified Code(s): I50.33 - Acute on chronic diastolic (congestive) heart failure (5) Paroxysmal A-fib: Details from hospital stay: transient afib with rvr at admission Status: Chronic (6) Acute and chronic respiratory failure with hypoxia: Details from hospital stay: secondary to chf acutely, copd chronically Status: Acute (7) Chronic obstructive pulmonary disease: Details from hospital stay: possibly acutely exacerbated this stay, though seemed more due to chf Status: Chronic (8) Elevated d-dimer: Details from hospital stay: no PE Status: Acute (9) DVT, bilateral lower limbs: Details from hospital stay: age indeterminant bilateral non-occlusive femoral vein DVTs into the popliteal and posterior tibeal veins, per venous doppler this stay Status: Chronic Qualifiers: Affected thrombotic vein of extremity: unspecified vein of extremity Chronicity: unspecified Qualified Code(s): I82.403 - Acute embolism and thrombosis of unspecified deep veins of lower extremity, bilateral Permanent problem details: Resolved venous doppler 05/27 (10) Normocytic anemia: Details from hospital stay: with iron deficiency, stable hemoglobin since earlier in year, 9.9 on day of dc Status: Acute (11) Pulmonary edema: Details from hospital stay: secondary to CHF Status: Acute (12) Retroperitoneal hematoma: Details from hospital stay: occurred in 05/2022, with resumption of anticoagulation for DVTs will need to monitor, CT this stay negative for active retroperitoneal hematoma Status: Resolved (13) AAA (abdominal aortic aneurysm): Details from hospital stay: 4 x 3.8 cm on imaging this stay Status: Acute (14) Moderate aortic stenosis: Details from hospital stay: not a new diagnosis Status: Chronic Permanent problem details: moderate on echo; also noted to have EF=65%, no RWMA, G1DD, moderate pulmonary HTN, mild-moderate TR Reason for Visit Reason for Visit: SOB/ ABDOMINAL PAIN Brief History: Per Dr Tran: Lisset Murphy is a 72 year old female with a past medical history of COPD Gold class D, on 5 L, history of malignant pulmonary nodule, asthma, history of DVT, hypertension, moderate aortic stenosis, moderate pulm hypertension, smoker but quit back in May, paroxysmal A-fib, who presents to [facility] due to chest heaviness.? She tells me today she started develop chest heaviness under her breast bilaterally, nonradiating, no nausea, no vomiting, no lightheadedness, dizziness she does feel short of breath, she is on 5 L, she recently quit smoking in May, she tells me that the breast heaviness progressed throughout the day so she came to the emergency room for evaluation.? Currently chest pain-free, denies shortness of breath currently Hospital Course Hospital Course Mrs Murphy was admitted to a medical bed. She was continued on oxygen therapy and received IV diuresis. She had -8 L fluid balance throughout the entire hospital stay. She was transitioned to oral Lasix that we will continue after discharge. She did transiently require Cardizem drip but has been transition back to oral Cardizem and continued on oral metoprolol. COPD was treated. As part of her overall work-up she had echocardiogram that continued to show preserved ejection fraction, some aortic stenosis along with pulmonary hypertension and tricuspid regurgitation. A myocardial perfusion test was done and was positive. She subsequently underwent cardiac catheterization. She had some proximal abnormalities but very tortuous vessels and ultimately decision was made for medical management without any invasive intervention. New medications included aspirin, statin and isosorbide. Further work-up showed that she has age-indeterminate bilateral lower extremity DVTs. Eliquis was started because of this. She had a retroperitoneal hematoma earlier this year so we will need to be monitored closely for signs and symptoms of bleeding with low threshold for evaluation of retroperitoneal hematoma redevelopment going forward. Given age indeterminate features, no way to discern if these were present prior to admission or not but it is a possibility. At the time of discharge patient was in stable condition. Lungs were clear. Trace edema. Rate controlled. She was alert and oriented and given an opportunity to ask questions. Physical Exam Urinary Catheter Management: Sherman: Cath Placed During This Visit: yes, but has since been removed by the nurse Reason for Continuing Indwelling Catheter: Accurate Measurement of Urinary Output in Critically Ill Patients Urinary Catheter Date of Insertion: 07/19/22 Urinary Catheter Time of Insertion: 22:45 Date Urinary Catheter Removed: 07/24/22 Time Urinary Catheter Discontinued: 10:46 Discharge Data Studies Completed and Pending Completed Studies During Hospitalization Category Date Time Status CT abdomen pelvis w con* [id number] Stat Cat Scan 07/19/22 20:40 Completed CTA chest [CT angio chest PE protcl [id number]] Routine Cat Scan 07/21/22 13:44 Completed CREDIT CARD ANALYST request for service Routine Exams 07/22/22 13:59 Completed Sestamibi Stress Test Request Routine Exams 07/20/22 15:28 Draft XR chest 1V portable [id number] Stat Exams 07/19/22 18:44 Completed XR chest 1V portable [id number] Stat Exams 07/21/22 06:15 Completed NM hany perf SPECT r/s* [id number] Routine Nuc Med 07/21/22 15:28 [place] [id number] Routine Ultrasound 07/23/22 08:18 Completed CV. echo complete* [id number] Routine Ultrasound 07/20/22 23:33 Completed Radiology Impressions Abdomen/Pelvis CT 07/19/22 20:40 IMPRESSION: 1. Stable mild interstitial pulmonary edema in the visualized lower lungs with a small right pleural effusion and right lower lobe compressive atelectasis. 2. Interval development of moderate body wall edema. 3. Stable indeterminate foci in the liver compared with 05/15/2022. 4. Stable dominant follicle in the right ovary. 5. Stable 4.0 x 3.8 cm infrarenal abdominal aortic aneurysm. Large amount of mural thrombus in the aneurysm. No evidence for aneurysm rupture. 6. Incidental/nonacute findings are listed in the report. Chest X-Ray 07/21/22 06:15 Impression: 1. Increase in pulmonary vascular congestion. 2. No change in right pleural effusion, cardiomegaly, hyperinflation and atherosclerosis. Chest CTA 07/21/22 13:44 IMPRESSION: 1. Negative CT angiogram of the chest. No evidence of acute pulmonary embolism. 2. COPD with diffuse emphysematous changes. 3. Enlarging irregular consolidative density posterior segment right upper lobe that may be infectious/inflammatory in nature but needs follow-up for surveillance. 4. Enlarging nodular density anterior segment right upper lobe that also needs continued surveillance for clarification. 5. Interval development of small-moderate size right pleural effusion possibly cardiogenic in nature. COMMENTS: In the absence of a history or active diagnosis of lung cancer, it is recommended that this patient with emphysema be evaluated for enrollment in a low dose CT lung cancer screening program. Laboratory Results WBC 8.6 10^3/uL (4.0-10.0) 07/26/22 03:59 RBC 3.85 10^6/uL (4.1-5.3) L 07/26/22 03:59 Hgb 9.9 g/dL (11.5-15.3) L 07/26/22 03:59 Hct 34.5 % (37.0-47.0) L 07/26/22 03:59 MCV 89.6 fl (81-99) 07/26/22 03:59 MCH 25.7 pg (28.0-34.0) L 07/26/22 03:59 MCHC 28.7 g/dL (30.0-36.0) L 07/26/22 03:59 RDW 15.4 % (12.1-15.1) H 07/26/22 03:59 Plt Count 187 10^3/cmm (130-400) 07/26/22 03:59 MPV 9.9 fL (7.4-10.4) 07/26/22 03:59 Neut % (Auto) 72.4 % 07/26/22 03:59 Lymph % (Auto) 12.5 % 07/26/22 03:59 [place] % (Auto) 11.8 % 07/26/22 03:59 Eos % (Auto) 1.8 % 07/26/22 03:59 Baso % (Auto) 0.2 % 04/24/23 03:59 Neut # (Auto) 6.21 10^3/uL (1.8-7.7) 07/26/22 03:59 Lymph # (Auto) 1.1 10^3/uL (0.8-4.8) 07/26/22 03:59 [place] # (Auto) 1.0 10^3/uL (0.2-0.9) H 07/26/22 03:59 Eos # (Auto) 0.2 10^3/uL (0.0-0.8) 07/26/22 03:59 Baso # (Auto) 0.0 10^3/uL (0.0-0.1) 07/26/22 03:59 Nucleated RBC % (auto) 0 % 07/26/22 03:59 Nucleated RBCs # 0.0 /100WBC 07/26/22 03:59 APTT 37.7 SECONDS (23.9-36.7) H 07/22/22 17:51 D-Dimer 8.29 ug/mIFEU (0-0.59) H 07/21/22 10:35 Specimen Type Arterial 07/21/22 06:28 Sample Site Radial, right 07/21/22 06:28 ABG pH 7.44 (7.35-7.45) 07/21/22 06:28 ABG pCO2 49.5 mmHg (35-45) H 07/21/22 06:28 ABG pO2 85.5 mmHg (80.0-100.0) 07/21/22 06:28 ABG HCO3 33.9 mmol/L (22-26) H 07/21/22 06:28 ABG O2 Saturation 97.7 07/21/22 06:28 ABG Base Excess 8.5 mmol/L (-2.0-2.0) H 07/21/22 06:28 Duncan Test Pos 07/21/22 06:28 A-a O2 Gradient 17.9 mmHg (5-10) H 07/21/22 06:28 Hematocrit 34.3 % (37-47) L 07/21/22 06:28 Hgb O2 Saturation 95.8 % (95-100) 07/21/22 06:28 Carboxyhemoglobin 1.7 %THgb (0.4-20.1) 07/21/22 06:28 Methemoglobin 0.2 % (0.4-1.5) L 07/21/22 06:28 Total Hemoglobin 11.2 g/dL (12-16) L 07/21/22 06:28 Sodium 140.0 mmol/L (131-143) 07/21/22 06:28 Potassium 3.6 mmol/L (3.5-5.0) 07/21/22 06:28 Glucose 90.0 mg/dL (70-115) 07/21/22 06:28 Ionized Calcium 1.2 mmol/L (1.1-1.4) 07/21/22 06:28 O2 Delivery Device Bipap 07/21/22 06:28 FiO2 40.0 % 07/21/22 06:28 CPAP 6.0 cmH20 07/21/22 06:28 Meter Tester ID [email or web address] 07/21/22 06:28 Sodium 139 mmol/L (136-145) 07/26/22 03:59 Potassium 3.5 mmol/L (3.5-5.1) 07/26/22 03:59 Chloride 98 mmol/L (98-107) 07/26/22 03:59 Carbon Dioxide 35 mmol/L (22-29) H 07/26/22 03:59 Anion Gap 9.5 (5-19) 07/26/22 03:59 BUN 30 mg/dL (8-23) H 07/26/22 03:59 Creatinine 0.4 mg/dL (0.5-0.9) L 07/26/22 03:59 GFR Calculation Not Reportable 07/26/22 03:59 Glucose 98 mg/dL (65-115) 07/26/22 03:59 Estimat Average Glucose 111 07/20/22 02:12 Hemoglobin A1c 5.5 % (4.0-6.0) 07/20/22 02:12 Calculated Osmolality 294 mOsm/kg (285-295) 07/26/22 03:59 Lactic Acid 1.8 mmol/L (0.5-2.2) 07/19/22 19:24 Calcium 8.1 mg/dL (8.5-10.5) L 07/26/22 03:59 Magnesium 1.9 mg/dL (1.7-2.3) 07/20/22 02:12 Total Bilirubin 0.3 mg/dL (0.15-1.2) 07/26/22 03:59 AST 11 U/L (0-32) 07/26/22 03:59 ALT 19 U/L (0-33) 07/26/22 03:59 Alkaline Phosphatase 55 U/L (35-105) 07/26/22 03:59 Troponin T Baseline 24 ng/L (0-10) H 07/19/22 19:24 Troponin T 120 Minute 34.28 ng/L (0-10) H 07/19/22 21:30 Delta Troponin T 10.28 ABS# (0-10) H* 07/19/22 21:30 Troponin T Hi Sens 6Hr 37.73 ng/L (0-10) H 07/20/22 02:12 Troponin T Hi Sens 6Hr Delta 13.73 ng/L (0-12) H* 07/20/22 02:12 NT-Pro-B Natriuret Pep 8828 pg/mL (0-125) H 07/20/22 02:12 Total Protein 5.3 g/dL (6.6-8.7) L 07/26/22 03:59 Albumin 3.3 g/dL (3.5-5.2) L 07/26/22 03:59 Globulin 2.0 g/dL (1.3-4.6) 07/26/22 03:59 Triglycerides 44 mg/dL (0-150) 07/20/22 02:12 Cholesterol 219 mg/dL (0-200) H 07/20/22 02:12 LDL Cholesterol, Calc 136 mg/dL (50-129) H 07/20/22 02:12 Total VLDL Cholesterol 9 mg/dL (0-30) 07/20/22 02:12 HDL Cholesterol 74 mg/dL (60-100) 07/20/22 02:12 Cholesterol/HDL Ratio 2.96 mg/dL (0.0-4.40) 07/20/22 02:12 Lipase 17 U/L (13-60) 07/19/22 19:24 TSH 0.34 uIU/mL (0.27-4.20) 07/20/22 02:12 Urine Color Yellow (Yellow) 07/19/22 23:42 Urine Appearance Clear (CLEAR) 07/19/22 23:42 Urine pH 8 (5-7) H 07/19/22 23:42 Ur Specific [place] 1.010 (1.005-1.030) 07/19/22 23:42 Urine Protein Neg (Negative) 07/19/22 23:42 Urine Glucose (UA) Norm (Normal) 07/19/22 23:42 Urine Ketones Negative (Negative) 07/19/22 23:42 Urine Blood Neg (Negative) 07/19/22 23:42 Urine Nitrate Negative (Negative) 07/19/22 23:42 Urine Bilirubin Neg (Negative) 07/19/22 23:42 Prot Sulfosalicylic Acd Negative (Negative) 07/19/22 23:42 Urine Urobilinogen Norm mg/dL (Negative) 07/19/22 23:42 Ur Leukocyte Esterase Negative (Negative) 07/19/22 23:42 SARS-CoV-2 Ag (Rapid) negative (Negative) 07/25/22 20:15 ECHO Echocardiogram done shows an EF of 55 to 60% with grade 1 diastolic dysfunction, mild aortic stenosis, RVSP of 40 to 45 mmHg consistent with mild pulmonary hypertension and mild TR.? No regional wall motion abnormality. CATH Cardiac catheterization on 07/22 which shows 20% distal narrowing of LMCA, 40 to 50% irregular narrowing in proximal to mid LAD, tortuous left circumflex with 30 to 40% diffuse irregular narrowing, completely occluded first RV branch of RCA. Vitals Last Vital Signs Temp 98.6 F 07/26/22 07:48 Pulse 58 L 07/26/22 11:51 Resp 18 07/26/22 11:51 BP 128/67 07/26/22 11:46 Pulse Ox 89 L 07/26/22 11:51 O2 Del Method Nasal Cannula 07/26/22 11:51 O2 Flow Rate 5 07/26/22 11:51 FiO2 40 07/26/22 00:00 Discharge Plan Discharge Patient Disposition: Xfer SNF Condition: Stable Prescriptions: New apixaban 5 mg tablet 5 mg PO Q12H Qty: 60 0RF aspirin 81 mg Tablet,Delayed Release (Dr/Ec) 81 mg PO DAILY Qty: 30 0RF atorvastatin 40 mg Tablet 40 mg PO BEDTIME Qty: 30 0RF prednisone 20 mg Tablet See Taper PO DAILY Qty: 20 0RF Taper: predniSONE 60-10 40 mg Daily for 3 Days and 0 Hour 30 mg Daily for 3 Days and 0 Hour 20 mg Daily for 3 Days and 0 Hour 10 mg Daily for 3 Days and 0 Hour 5 mg Daily for 30 Days and 0 Hour Rx Instructions: Take 40mg>30mg>20mg>10mg as directed x 3 days each dose, then resume home 5mg dosing daily isosorbide mononitrate 30 mg Tablet Extended Release 24 Hr 30 mg PO BID Qty: 60 0RF potassium chloride 20 mEq tablet extended release 20 meq PO DAILY Qty: 30 0RF Continued albuterol sulfate 2.5 mg /3 mL (0.083 %) solution for nebulization 2.5 mg inhalation Q6H PRN (Reason: bronchospasm) Qty: 180 5RF albuterol sulfate [ProAir HFA] 90 mcg/actuation HFA aerosol inhaler 2 puff INHALATION Q6H PRN (Reason: Shortness Of Breath) Qty: 8.5 3RF budesonide 0.5 mg/2 mL suspension for nebulization 0.5 mg inhalation BID Qty: 120 3RF formoterol fumarate [Perforomist] 20 mcg/2 mL solution for nebulization 2 ml inhalation BID Qty: 120 3RF Yupelri 175 mcg/3 mL solution for nebulization 175 mcg inhalation DAILY Qty: 90 3RF (DME) Home oxygen See Rx Instructions .Route .MEDSUPPLY Qty: 1 0RF Rx Instructions: give machine and supplies. 5 L per NC at rest/ sleep and with activity fluticasone propionate 50 mcg/actuation spray,suspension 1 spray intranasal Q12H Qty: 16 4RF diltiazem HCl 120 mg tablet 120 mg PO BID Mucinex 600 mg Tablet Extended Release 12hr 600 mg PO BID Trelegy Ellipta 100-62.5-25 mcg Blister With Device 1 inh INHALATION DAILY hydrocodone-acetaminophen 5-325 mg tablet 1 tab PO Q6H PRN (Reason: pain) Qty: 20 0RF alprazolam 0.25 mg tablet 0.25 mg PO BEDTIME Qty: 20 0RF furosemide 20 mg tablet 40 mg PO QAM 30 Days Qty: 30 0RF loperamide 2 mg Capsule 4 mg PO BID PRN (Reason: Diarrhea) Rx Instructions: administer after each loose stool until symptoms controlled; do not exceed 8 mg per 24 hrs temazepam 15 mg Capsule 30 mg PO BEDTIME PRN (Reason: Insomnia) pantoprazole 40 mg Tablet,Delayed Release (Dr/Ec) 40 mg PO DAILY ferrous sulfate 325 mg (65 mg iron) Tablet 325 mg PO BID docusate sodium 100 mg Capsule 200 mg PO BID PRN (Reason: Constipation) mirtazapine 15 mg Tablet 15 mg PO DAILY polyethylene glycol 3350 [Miralax] 17 gram/dose Powder 17 g PO DAILY PRN (Reason: Constipation) acetaminophen 500 mg Capsule 1,000 mg PO Q6H PRN (Reason: Pain) escitalopram oxalate [Lexapro] 10 mg Tablet 10 mg PO DAILY metoprolol tartrate 25 mg Tablet 12.5 mg PO BID Held prednisone 5 mg tablet 5 mg PO DAILY Hold Instructions: until complete steroid taper Discharge Orders: Discharge Order (Routine); Ordered 07/26/22 Ordered By: Vanesa Rodríguez Referrals: Laura Beasley FNP [Nurse Practitioner] - 07/28/22 10:45 am Thompson Zuluaga MD [Primary Care Provider] - 4-7 days Discharge Diet: Cardiac Discharge Activity: Increase activity as tolerated and As per PT/OT instructions Patient Instructions: Prednisone (By mouth) (predniSONE Intensol, Prednicot, Deltasone, Alyson), Potassium Chloride (By mouth), Aspirin (By mouth), Isosorbide Mononitrate (By mouth) (Imdur, Imdur ER, Ismo), Atorvastatin (By mouth) (Lipitor), Apixaban (By mouth) (Eliquis), Heart Catheterization (DC), CHF Stoplight, COPD Stoplight, Post Angiogram Home Care Instructions Activity Restrictions/Additional Instructions: Therapy: PT and OT New Medications: Eliquis for DVT (age indeterminant right and left femoral vein, non-occlusive Aspirin, statin, isosorbide for medical management of cardiac disease Potassium while on diuretics Labs: Recheck BMP in 1-2 weeks after adding potassium, CBC secondary to start of anticoagulation Oxygen: 5L bnc continuous (this is usual home oxygen) Discharge Attestations Time Spent in Discharge Care*: greater than 30 min Status at Discharge: Cognitive status at discharge: cognitively intact , Behavioral status at discharge: cooperative and independent in ADL's , Quality Metrics Clinical Quality Measures [ No reported AMI, CVA or VTE this stay] Coding Level of Care Code 45043 Total time (in minutes) for Discharge: 50 Diagnoses Chest pain R07.9 Acute non-ST elevation myocardial infarction (NSTEMI) I21.4 Positive cardiac stress test R94.39 CHF exacerbation I50.33 Heart failure type: diastolic Paroxysmal A-fib I48.0 Acute and chronic respiratory failure with hypoxia J96.21 Chronic obstructive pulmonary disease J44.9 Elevated d-dimer R79.89 DVT, bilateral lower limbs I82.403 Affected thrombotic vein of extremity: unspecified vein of extremity Chronicity: unspecified Normocytic anemia D64.9 Pulmonary edema J81.1 Retroperitoneal hematoma K66.1 AAA (abdominal aortic aneurysm) I71.40 Moderate aortic stenosis I35.0
--- NOTE | 2022-07-26 19:04 | PC.NURSE ---
DISCHARGE SUMMARY FAXED TO [facility] AFTER SIGNED BY DR. VAZQUEZ.
== END 2022-07-26 16:00 | disposition skilled nursing facility (03) | DRG 280 ==
LOC: ER 22:23 → CSU 22:55
PROVIDERS: Internal Medicine Cardiovascular Disease; Student in an Organized Health Care Education/Training Program; Admitting Provider Family Medicine; Emergency Provider Emergency Medicine; PCP Family Medicine; Visit Provider Hospitalist
PROC: 4A023N7 Measurement of Cardiac Sampling and Pressure, Left Heart, Percutaneous Approach (ICD-10-PCS; principal; 2022-07-22 16:30)
DX: I21.4 Non-ST elevation (NSTEMI) myocardial infarction (principal); I50.33 Acute on chronic diastolic (congestive) heart failure; J96.21 Acute and chronic respiratory failure with hypoxia; I82.413 Acute embolism and thrombosis of femoral vein, bilateral; I25.110 Atherosclerotic heart disease of native coronary artery with unstable angina pectoris; I11.0 Hypertensive heart disease with heart failure; I48.0 Paroxysmal atrial fibrillation; J43.2 Centrilobular emphysema; D64.9 Anemia, unspecified; I71.43 Infrarenal abdominal aortic aneurysm, without rupture; I35.0 Nonrheumatic aortic (valve) stenosis; I27.20 Pulmonary hypertension, unspecified; Z86.73 Personal history of transient ischemic attack (TIA), and cerebral infarction without residual deficits; Z66 Do not resuscitate; Z79.891 Long term (current) use of opiate analgesic; Z79.51 Long term (current) use of inhaled steroids; I07.1 Rheumatic tricuspid insufficiency; Z87.891 Personal history of nicotine dependence
CPT/HCPCS: 36415; 36600; 51702; 71045; 71275; 74177; 78452; 80048; 80051; 80053; 80061; 81003; 82330; 82805; 83036; 83605; 83690; 83735; 83880; 84443; 84484; 85025; 85347; 85378; 85730; 87426; 93005; 93017; 93306; 93458; 93970; 94640; 94660; 94664; 96372; 96374; 96375; 96376; 97110; 99152; 99153; 99285; A9500; C1769; C1887; C1894; G0378; J0280; J1200; J1644; J1650; J1940; J2250; J2785; J2920; J2930; J3010; J3490; J7030; J7512; J7626; Q9967

== ENCOUNTER → 2022-07-28 10:40 | Outpatient (BNVA) | payer MEDICARE, MEDICAID, SELFPAY | PROVIDERS: PCP Internal Medicine; Visit Provider Nurse Practitioner Family | DX: I48.0 Paroxysmal atrial fibrillation (principal); I35.0 Nonrheumatic aortic (valve) stenosis; I82.403 Acute embolism and thrombosis of unspecified deep veins of lower extremity, bilateral; I50.33 Acute on chronic diastolic (congestive) heart failure; I25.10 Atherosclerotic heart disease of native coronary artery without angina pectoris; J44.9 Chronic obstructive pulmonary disease, unspecified; F17.210 Nicotine dependence, cigarettes, uncomplicated; Z79.01 Long term (current) use of anticoagulants | CPT/HCPCS: 99214 ==

== ENCOUNTER 2022-08-27 14:34 | Outpatient (CLI) | payer MEDICARE, MEDICAID, SELFPAY ==
[2022-08-27 15:27] LABS: Basophils # 0.1 10^3/uL (0.0-0.1); Basophils % 0.6 %; Eosinophils # 0.1 10^3/uL (0.0-0.8); Eosinophils % 1.1 %; Hemoglobin 10.3 g/dL (11.5-15.3); Lymphocytes # 0.9 10^3/uL (0.8-4.8); Lymphocytes % 8.4 %; Mean Corpuscular HGB Conc 28.6 g/dL (30.0-36.0); Mean Corpuscular Hemoglobin 25.6 pg (28.0-34.0); Mean Corpuscular Volume 89.6 fl (81-99); Mean Platelet Volume 9.9 fL (7.4-10.4); Monocytes # 0.6 10^3/uL (0.2-0.9); Monocytes % 5.8 %; Neutrophils # 8.65 10^3/uL (1.8-7.7); Neutrophils % 82.9 %; Nucleated Red Blood Cells % 0 %; Platelet Count 351 10^3/cmm (130-400); Red Blood Count 4.02 10^6/uL (4.1-5.3); Red Cell Distribution Width 15.6 % (12.1-15.1); White Blood Count 10.4 10^3/uL (4.0-10.0)
[2022-08-27 16:03] LABS: Blood Urea Nitrogen 10 mg/dL (8-23); Calcium 8.9 mg/dL (8.5-10.5); Carbon Dioxide 26 mmol/L (22-29); Chloride 97 mmol/L (98-107); Glucose 163 mg/dL (65-115); Osmolality Calculated 287 mOsm/kg (285-295); Sodium 137 mmol/L (136-145)
== END 2022-08-27 14:35 | disposition home or self-care (01) ==
LOC: LAB 14:36
PROVIDERS: PCP Internal Medicine; Visit Provider Internal Medicine
DX: D64.9 Anemia, unspecified (principal)
CPT/HCPCS: 80048; 85025

== ENCOUNTER 2022-10-18 17:46 | Emergency (ER) | payer MEDICARE, MEDICAID, SELFPAY ==
[2022-10-18] VITALS (10 sets, daily range): BP systolic 138–149; BP diastolic 81–89; PULSE 66–88; RESP 16–22; TEMP 36.6; O2SAT 81–96; BMI 26.5
--- NOTE | 2022-10-18 18:04 | XRR_ITS ---
PROCEDURE INFORMATION: Exam: XR Chest Exam date and time: 10/18/2022 6:11 PM Age: 72 years old Clinical indication: Dyspnea and wheezing; Additional info: Dyspnea wheezing TECHNIQUE: Imaging protocol: Radiologic exam of the chest. Views: 1 view. COMPARISON: CR XR chest 1V portable [id number] 07/21/2022 5:38 AM FINDINGS: Lungs: Residual or recurrent infiltrate is seen in the right base with near complete clearing of remaining infiltrate seen in the right mid and lower lung bonds. Pleural spaces: Unremarkable. No pleural effusion. No pneumothorax. Heart/Mediastinum: Unremarkable. No cardiomegaly. Bones/joints: Unremarkable. XR/XR chest 1V portable [id number] IMPRESSION: Residual or recurrent infiltrate is seen in the right base with near complete clearing of remaining infiltrate seen in the right mid and lower lung bonds.
--- NOTE | 2022-10-18 18:04 | XRR_ITS ---
PROCEDURE INFORMATION: Exam: XR Abdomen Exam date and time: 10/18/2022 6:11 PM Age: 72 years old Clinical indication: Nausea TECHNIQUE: Imaging protocol: Radiologic exam of the abdomen. Views: Frontal supine view of the abdomen. 1 View. COMPARISON: CT abdomen pelvis w con* [id number] 07/19/2022 9:12 PM FINDINGS: Gastrointestinal tract: Normal. No bowel dilation. Vasculature: Scattered arterial calcifications. Bones/joints: Unremarkable. XR/XR abdomen 1V* [id number] IMPRESSION: No acute findings.
--- NOTE | 2022-10-18 18:07 | W.ED.NAVMDI ---
HPI - Nausea/Vomiting/Diarrhea General: Chief complaint: Nausea/Vomiting/Diarrhea Stated complaint: nausea x 1 week Time Seen by Provider: 10/18/22 17:48 History of Present Illness: Patient presents to the ER with complaints of nausea and vomiting pretty consistently for 1 week. Patient does not have an appetite and is eating significantly less that her normal. Patient was given Zofran at the assisted and it does not seem to work. Patient denies any fever chills diarrhea abdominal pain. There are no known sick contacts. Patient does not know anything that caused this. She does not get sick at her stomach very often. Patient also presents with worsening shortness of breath. Patient normally wears 4 L of oxygen per nasal cannula and she is requiring 6 L of oxygen currently to keep her sats in the high 80s or low 90s. Patient is currently on multiple breathing treatments and nebulizers at home. Review of Systems General: Reports: 10 or more systems reviewed and unremarkable except in HPI and below PFSH ED PFSH: Medical History Abnormal nuclear stress test 07/22/22, had cath Allergic rhinitis Asthma Atherosclerosis of coronary artery Chronic obstructive pulmonary disease Chronic respiratory failure with hypoxia DVT, bilateral lower limbs Resolved venous doppler 05/27 Essential (primary) hypertension Lesion of liver Mass of right parotid gland Moderate aortic stenosis Mild (mean gradient 10 mmHg, BESS 1.29 cm?), mild PAH (RVSP 40 to 45 mmHg), LVEF 55-60% Nicotine addiction Old cerebrovascular accident (CVA) without late effect Paroxysmal A-fib Pulmonary nodule Retroperitoneal hematoma (05/2022) Severe depression Unable to function independently Surgical History H/O tubal ligation History of cardiac catheterization 07/22/2022 - 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 Highly tortuous circumflex and left anterior sending arteries with mild to moderate diffuse disease in the proximal segment was of these arteries. Moderate to heavy coronary calcification was noted in in the proximal segments of these arteries. LVEDP of 17 mmHg. Status post-operative repair of hip fracture bipolar arthroplasty 01/2020 Family History Father CAD (coronary artery disease) Mother Cancer Social History Smoking and tobacco status: current every day smoker cigarettes Packs smoked per day: 1.5 Years cigarettes smoked: 50 [ Other cigarette details: Started at age 13 years] Quit status (tobacco): considering quitting Smoking risk assessment/counseling performed?: Yes Alcohol intake: never Counseling given: No Substance/Drug Use: never Counseling given: No Lives independently: Yes Household members: none Marital status: Current occupational status: retired Do you think of yourself as: Straight/Heterosexual Current gender identity: Female Physical Exam Const: COMMON NORMALS: no acute distress, average body habitus, patient oriented x3, no limitations, healthy appearing, alert and well nourished HENMT: COMMON NORMALS: normocephalic, atraumatic, hearing grossly normal bilaterally, external ears normal, Normal external nose present and moist oral mucous membranes HEAD & SCALP: normocephalic and atraumatic NOSE: Normal external nose present EXTERNAL EAR: Yes external ears normal Neck/C-Spine: COMMON NORMALS: full ROM, no lymphadenopathy, supple, no meningeal signs, no JVD and Thyroid normal THYROID: Thyroid normal Chest: COMMONS NORMALS: normal inspection of the chest and normal palpation of entire chest wall Resp: COMMON NORMALS: normal respiratory effort, No retractions and No use of accessory muscles OTHER: Diffuse wheezing Cardio: COMMON NORMALS: no JVD, regular rate, regular rhythm, S1 normal heart sound present, S2 normal heart sound present, No gallops present (Cardio) and No clicks present (Cardio); negative for No murmurs present (Cardio) (Systolic ejection heart murmur noted) RATE: regular rate RHYTHM: regular rhythm HEART SOUNDS: S1 normal heart sound present and S2 normal heart sound present GI: COMMON NORMALS: Normal to inspection, nondistended, normoactive bowel sounds present, Soft to palpation, non-tender, No hepatosplenomegaly present and no masses PALPATION: Yes Soft to palpation and Yes No hepatosplenomegaly present Extremity: OTHER: Dry scaly skin to bilateral lower extremities 1+ pitting edema bilateral lower extremities Neuro: COMMON NORMALS: patient oriented x3 SENSORIUM/ORIENTATION: Yes alert MENINGEAL SIGNS: Yes no meningeal signs Course Vital Signs: Vital signs: Vital Signs Temperature 97.9 F 10/18/22 17:49 Pulse Rate 71 10/18/22 18:37 Respiratory Rate 20 H 10/18/22 18:37 Blood Pressure 147/88 10/18/22 17:49 Pulse Oximetry 96 10/18/22 18:37 Oxygen Delivery Me thod Heated High Flow 10/18/22 18:37 Oxygen Flow Rate 30 10/18/22 18:37 Fraction of Inspir ed Oxygen 60 10/18/22 18:37 MDM - Nausea/Vomiting/Diarrhea Medical Decision Making Presents to the ER with complaints of nausea. Patient was found to be hypoxic upon arrival even on supplemental oxygen. Chest x-ray was obtained which showed improving infiltrate in the right lung base lab work was obtained which was essentially benign other than some mildly elevated liver enzymes. Patient was given Reglan for nausea which seem to help. Patient was initially placed on high flow oxygen and given a breathing treatment. Patient was then titrated back down to 5 L of oxygen per nasal cannula. Patient is ready to go home per her and wants to be discharged. Patient will be given a prescription for Reglan to go home on and discharged back to her home. Differential Diagnosis Unlikely traveler's diarrhea, food poisoning, gastroenteritis, clostridium difficile infection, drug-induced nausea and vomiting or dehydration Medical Records I reviewed the patient's medical records. Lab Data I reviewed the patient's lab results. 10/18/22 18:01 10/18/22 18:01 Radiology Impressions Abdomen X-Ray 10/18/22 18:04 IMPRESSION: No acute findings. Chest X-Ray 10/18/22 18:04 IMPRESSION: Residual or recurrent infiltrate is seen in the right base with near complete clearing of remaining infiltrate seen in the right mid and lower lung bonds. Laboratory Results WBC 6.6 10^3/uL (4.0-10.0) 10/18/22 18:01 RBC 4.00 10^6/uL (4.1-5.3) L 10/18/22 18:01 Hgb 9.0 g/dL (11.5-15.3) L 10/18/22 18:01 Hct 32.9 % (37.0-47.0) L 10/18/22 18:01 MCV 82.3 fl (81-99) 10/18/22 18:01 MCH 22.5 pg (28.0-34.0) L 10/18/22 18:01 MCHC 27.4 g/dL (30.0-36.0) L 10/18/22 18:01 RDW 17.0 % (12.1-15.1) H 10/18/22 18:01 Plt Count 272 10^3/cmm (130-400) 10/18/22 18:01 MPV 11.2 fL (7.4-10.4) H 10/18/22 18:01 Neut % (Auto) 69.7 % 10/18/22 18:01 Lymph % (Auto) 16.3 % 10/18/22 18:01 [place] % (Auto) 11.9 % 10/18/22 18:01 Eos % (Auto) 0.5 % 10/18/22 18:01 Baso % (Auto) 1.1 % 10/18/22 18:01 Neut # (Auto) 4.63 10^3/uL (1.8-7.7) 10/18/22 18:01 Lymph # (Auto) 1.1 10^3/uL (0.8-4.8) 10/18/22 18:01 [place] # (Auto) 0.8 10^3/uL (0.2-0.9) 10/18/22 18:01 Eos # (Auto) 0.0 10^3/uL (0.0-0.8) 10/18/22 18:01 Baso # (Auto) 0.1 10^3/uL (0.0-0.1) 10/18/22 18:01 Nucleated RBC % (auto) 0.3 % 10/18/22 18:01 Nucleated RBCs # 0.0 /100WBC 10/18/22 18:01 Sodium 134 mmol/L (136-145) L 10/18/22 18:01 Potassium 4.1 mmol/L (3.5-5.1) 10/18/22 18:01 Chloride 95 mmol/L (98-107) L 10/18/22 18:01 Carbon Dioxide 28 mmol/L (22-29) 10/18/22 18:01 Anion Gap 15.1 (5-19) 10/18/22 18:01 BUN 22 mg/dL (8-23) 10/18/22 18:01 Creatinine 0.8 mg/dL (0.5-0.9) 10/18/22 18:01 GFR Calculation Not Reportable 10/18/22 18:01 Glucose 98 mg/dL (65-115) 10/18/22 18:01 Calculated Osmolality 281 mOsm/kg (285-295) L 10/18/22 18:01 Calcium 8.4 mg/dL (8.5-10.5) L 10/18/22 18:01 Magnesium 1.9 mg/dL (1.7-2.3) 10/18/22 18:01 Total Bilirubin 1.0 mg/dL (0.15-1.2) 10/18/22 18:01 AST 68 U/L (0-32) H 10/18/22 18:01 ALT 59 U/L (0-33) H 10/18/22 18:01 Alkaline Phosphatase 161 U/L (35-105) H 10/18/22 18:01 Total Protein 6.4 g/dL (6.6-8.7) L 10/18/22 18:01 Albumin 3.4 g/dL (3.5-5.2) L 10/18/22 18:01 Globulin 3.0 g/dL (1.3-4.6) 10/18/22 18:01 Discharge Plan Discharge Patient Disposition: Home Clinical Impression: Nausea & vomiting Qualifiers: Vomiting type: unspecified Qualified Code(s): R11.2 - Nausea with vomiting, unspecified COPD (chronic obstructive pulmonary disease) Qualifiers: COPD type: unspecified COPD Qualified Code(s): J44.9 - Chronic obstructive pulmonary disease, unspecified Condition: Stable Prescriptions: New Reglan 5 mg tablet 5 mg PO Q6H PRN (Reason: nausea and vomiting) Qty: 14 0RF No Action albuterol sulfate 2.5 mg /3 mL (0.083 %) solution for nebulization 2.5 mg inhalation Q6H PRN (Reason: bronchospasm) Qty: 180 5RF albuterol sulfate [ProAir HFA] 90 mcg/actuation HFA aerosol inhaler 2 puff INHALATION Q6H PRN (Reason: Shortness Of Breath) Qty: 8.5 3RF budesonide 0.5 mg/2 mL suspension for nebulization 0.5 mg inhalation BID Qty: 120 3RF formoterol fumarate [Perforomist] 20 mcg/2 mL solution for nebulization 2 ml inhalation BID Qty: 120 3RF Yupelri 175 mcg/3 mL solution for nebulization 175 mcg inhalation DAILY Qty: 90 3RF (DME) Home oxygen See Rx Instructions .Route .MEDSUPPLY Qty: 1 0RF Rx Instructions: give machine and supplies. 5 L per NC at rest/ sleep and with activity fluticasone propionate 50 mcg/actuation spray,suspension 1 spray intranasal Q12H Qty: 16 4RF diltiazem HCl 120 mg tablet 120 mg PO BID Mucinex 600 mg Tablet Extended Release 12hr 600 mg PO BID Trelegy Ellipta 100-62.5-25 mcg Blister With Device 1 inh INHALATION DAILY apixaban 5 mg tablet 5 mg PO Q12H Qty: 60 0RF aspirin 81 mg Tablet,Delayed Release (Dr/Ec) 81 mg PO DAILY Qty: 30 0RF atorvastatin 40 mg Tablet 40 mg PO BEDTIME Qty: 30 0RF prednisone 20 mg Tablet See Taper PO DAILY Qty: 20 0RF Taper: predniSONE 60-10 40 mg Daily for 3 Days and 0 Hour 30 mg Daily for 3 Days and 0 Hour 20 mg Daily for 3 Days and 0 Hour 10 mg Daily for 3 Days and 0 Hour 5 mg Daily for 30 Days and 0 Hour Rx Instructions: Take 40mg>30mg>20mg>10mg as directed x 3 days each dose, then resume home 5mg dosing daily isosorbide mononitrate 30 mg Tablet Extended Release 24 Hr 30 mg PO BID Qty: 60 0RF potassium chloride 20 mEq tablet extended release 20 meq PO DAILY Qty: 30 0RF hydrocodone-acetaminophen 5-325 mg tablet 1 tab PO Q6H PRN (Reason: pain) Qty: 20 0RF alprazolam 0.25 mg tablet 0.25 mg PO BEDTIME Qty: 20 0RF prednisone 5 mg tablet 5 mg PO DAILY Hold Instructions: until complete steroid taper furosemide 20 mg tablet 40 mg PO QAM 30 Days Qty: 30 0RF loperamide 2 mg Capsule 4 mg PO BID PRN (Reason: Diarrhea) Rx Instructions: administer after each loose stool until symptoms controlled; do not exceed 8 mg per 24 hrs temazepam 15 mg Capsule 30 mg PO BEDTIME PRN (Reason: Insomnia) pantoprazole 40 mg Tablet,Delayed Release (Dr/Ec) 40 mg PO DAILY ferrous sulfate 325 mg (65 mg iron) Tablet 325 mg PO BID docusate sodium 100 mg Capsule 200 mg PO BID PRN (Reason: Constipation) mirtazapine 15 mg Tablet 15 mg PO DAILY polyethylene glycol 3350 [Miralax] 17 gram/dose Powder 17 g PO DAILY PRN (Reason: Constipation) acetaminophen 500 mg Capsule 1,000 mg PO Q6H PRN (Reason: Pain) escitalopram oxalate [Lexapro] 10 mg Tablet 10 mg PO DAILY metoprolol tartrate 25 mg Tablet 12.5 mg PO BID Discharge Orders: Discharge ED (Routine); Ordered 10/18/22 Ordered By: Joby Fermin Referrals: Norris Lawson DO [Primary Care Provider] - Patient Instructions: Acute Nausea and Vomiting (DC) Activity Restrictions/Additional Instructions: Please take the Reglan as prescribed as needed for nausea and vomiting please follow-up with your PCP in approximately 1 week for further evaluation and treatment. Coding Level of Care Code ED Corn [employer]inder for Nan Chaudhary
[2022-10-18 18:23] LABS: Basophils # 0.1 10^3/uL (0.0-0.1); Basophils % 1.1 %; Eosinophils % 0.5 %; Hematocrit 32.9 % (37.0-47.0); Lymphocytes # 1.1 10^3/uL (0.8-4.8); Lymphocytes % 16.3 %; Mean Corpuscular HGB Conc 27.4 g/dL (30.0-36.0); Mean Corpuscular Hemoglobin 22.5 pg (28.0-34.0); Mean Corpuscular Volume 82.3 fl (81-99); Mean Platelet Volume 11.2 fL (7.4-10.4); Monocytes # 0.8 10^3/uL (0.2-0.9); Monocytes % 11.9 %; Neutrophils # 4.63 10^3/uL (1.8-7.7); Neutrophils % 69.7 %; Nucleated Red Blood Cells % 0.3 %; Platelet Count 272 10^3/cmm (130-400); White Blood Count 6.6 10^3/uL (4.0-10.0)
[2022-10-18] MEDS: ipratropium-albuterol 3 mL Neb INHALATION (18:36)
[2022-10-18 18:41] LABS: Alanine Aminotransferase 59 U/L (0-33); Albumin Level 3.4 g/dL (3.5-5.2); Alkaline Phosphatase 161 U/L (35-105); Anion Gap 15.1 (5-19); Aspartate Amino Transferase 68 U/L (0-32); Blood Urea Nitrogen 22 mg/dL (8-23); Calcium 8.4 mg/dL (8.5-10.5); Carbon Dioxide 28 mmol/L (22-29); Chloride 95 mmol/L (98-107); Glucose 98 mg/dL (65-115); Magnesium 1.9 mg/dL (1.7-2.3); Osmolality Calculated 281 mOsm/kg (285-295); Potassium 4.1 mmol/L (3.5-5.1); Sodium 134 mmol/L (136-145); Total Protein 6.4 g/dL (6.6-8.7)
[2022-10-18] MEDS: metoclopramide 5 mg/mL SDV 2 mL 10 MG IVP (19:05)
[2022-10-18] MEDS: albuterol 2.5 mg/3 mL Neb INHALATION (21:19)
--- NOTE | 2022-10-18 22:42 | PC.NURSE ---
attempted to call report to [facility] x2. no answer either time
[2022-10-19 00:15] VITALS: BP 146/69; RESP 18; O2SAT 91
== END 2022-10-19 00:18 | disposition home or self-care (01) ==
PROVIDERS: Emergency Provider Emergency Medicine; PCP Internal Medicine
DX: R11.2 Nausea with vomiting, unspecified (principal); J44.9 Chronic obstructive pulmonary disease, unspecified; Z79.82 Long term (current) use of aspirin; F17.210 Nicotine dependence, cigarettes, uncomplicated; I25.10 Atherosclerotic heart disease of native coronary artery without angina pectoris; I10 Essential (primary) hypertension; Z86.73 Personal history of transient ischemic attack (TIA), and cerebral infarction without residual deficits
CPT/HCPCS: 71045; 74018; 80053; 83735; 85025; 94640; 96374; 99284; J2765; J7613

== ENCOUNTER 2022-10-30 13:34 | Emergency (ER) | payer MEDICARE, MEDICAID, SELFPAY ==
[2022-10-30] VITALS (12 sets, daily range): BP systolic 116–136; BP diastolic 65–91; PULSE 69–79; RESP 14–20; TEMP 36.3; O2SAT 92–100; BMI 27.3
--- NOTE | 2022-10-30 13:34 | W.ED.SOB ---
HPI - SOB/Dyspnea General: Chief Complaint: Shortness of Breath/Dyspnea Stated Complaint: respiratory distress Time Seen by Provider: 10/30/22 13:34 History of Present Illness: HPI Narrative: Ms. Murphy is a 72-year-old lady with significant history of COPD, chronic hypoxic respiratory failure, DVT, others who is currently from a detention DNR/DNI and on hospice presenting to the emergency department for shortness of breath. She notes worsening symptoms over a number of days and severe today. Apparently she has been receiving respiratory treatments however has not improved. EMS found the patient to be hypoxemic on nonrebreather with cyanosis and increased work of breathing. Patient was treated with BiPAP, Lasix, albuterol with improvement in lung sounds and oxygenation. Severe intensity symptoms. No other specific changes in health, exacerbating, or alleviating factors identified. Onset (ago): day(s) Timing: progressively worsening Known history of: COPD Review of Systems General: Reports: 10 or more systems reviewed and unremarkable except in HPI and below PFSH ED PFSH: Medical History Abnormal nuclear stress test 07/22/22, had cath Allergic rhinitis Asthma Atherosclerosis of coronary artery Chronic obstructive pulmonary disease Chronic respiratory failure with hypoxia DVT, bilateral lower limbs Resolved venous doppler 05/27 Essential (primary) hypertension Lesion of liver Mass of right parotid gland Moderate aortic stenosis Mild (mean gradient 10 mmHg, BESS 1.29 cm?), mild PAH (RVSP 40 to 45 mmHg), LVEF 55-60% Nicotine addiction Old cerebrovascular accident (CVA) without late effect Paroxysmal A-fib Pulmonary nodule Retroperitoneal hematoma (05/2022) Severe depression Unable to function independently Surgical History H/O tubal ligation History of cardiac catheterization 07/22/2022 - 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 Highly tortuous circumflex and left anterior sending arteries with mild to moderate diffuse disease in the proximal segment was of these arteries. Moderate to heavy coronary calcification was noted in in the proximal segments of these arteries. LVEDP of 17 mmHg. Status post-operative repair of hip fracture bipolar arthroplasty 01/2020 Family History Father CAD (coronary artery disease) Mother Cancer Social History Smoking and tobacco status: current every day smoker cigarettes Packs smoked per day: 1.5 Years cigarettes smoked: 50 [ Other cigarette details: Started at age 13 years] Quit status (tobacco): considering quitting Smoking risk assessment/counseling performed?: Yes Alcohol intake: never Counseling given: No Substance/Drug Use: never Counseling given: No Lives independently: Yes Household members: none Marital status: Current occupational status: retired Do you think of yourself as: Straight/Heterosexual Current gender identity: Female Physical Exam Const: COMMON NORMALS: alert GENERAL APPEARANCE: cooperative, well developed and ill appearing HENMT: COMMON NORMALS: normocephalic and atraumatic HEAD & SCALP: normocephalic and atraumatic Eye: COMMON NORMALS: conjunctivae normal CONJUNCTIVA: Yes conjunctivae normal SCLERA: sclerae normal Neck/C-Spine: COMMON NORMALS: supple GENERAL: Yes trachea midline Resp: EFFORT & INSPECTION: Yes respiratory distress AUSCULTATION: diminished lung sounds Cardio: COMMON NORMALS: regular rate and regular rhythm RATE: regular rate RHYTHM: regular rhythm GI: COMMON NORMALS: Soft to palpation PALPATION: Yes Soft to palpation and No Tenderness to palpation present (GI) Extremity: GENERAL: Yes normal exam except as noted and No edema Neuro: COMMON NORMALS: moves all extremities SENSORIUM/ORIENTATION: Yes alert and No Orientation impaired Psych: COMMON NORMALS: mental status grossly normal and Normal thought process present THOUGHT PROCESS: Normal thought process present Course Vital Signs: Vital signs: Vital Signs Temperature 97.4 F L 10/30/22 13:48 Pulse Rate 78 10/30/22 15:45 Respiratory Rate 15 10/30/22 15:45 Blood Pressure 136/91 10/30/22 15:15 Pulse Oximetry 92 10/30/22 15:45 Oxygen Delivery Me thod Nasal Cannula 10/30/22 15:45 Oxygen Flow Rate 5 10/30/22 15:45 Fraction of Inspir ed Oxygen 35 10/30/22 14:29 MDM - SOB/Dyspnea Medical Decision Making 72-year-old lady presenting in respiratory distress. Patient is a DNI/DNR. Exam as above. EKG demonstrates sinus rhythm with nonspecific ST segment abnormalities and right axis deviation, no STEMI. No significant hematologic abnormalities. Metabolic panel with dehydration and elevated creatinine above baseline. Lactic acid is elevated. Negative range 2-hour delta troponin proBNP elevated. Viral panel negative. Chest x-ray consistent with pneumonia. Patient actually quite improved with additional RT treatments, magnesium, fluids, antibiotics. I discussed disposition options with goals of care with the patient and her family. Patient adamantly wishes to be discharged. This is consistent with goals and reasonable. I did discuss the possibility of worsening including despite antibiotic treatment. The results of ED evaluation were discussed with the patient including prescriptions and/or symptomatic cares (if applicable) including appropriate and responsible use, followup plan, and return precautions. The patient verbalized understanding and felt safe for discharge. Medical Records I reviewed the patient's medical records. Lab Data I reviewed the patient's lab results. 10/30/22 13:16 10/30/22 13:16 Labs/Radiology: Radiology Impressions Chest X-Ray 10/30/22 13:35 IMPRESSION: There are mixed findings as there is improved left basal aeration with some increased density suggestive of slightly increased inflammation of the right lung base. Laboratory Results WBC 8.8 10^3/uL (4.0-10.0) 10/30/22 13:16 RBC 4.56 10^6/uL (4.1-5.3) 10/30/22 13:16 Hgb 9.6 g/dL (11.5-15.3) L 10/30/22 13:16 Hct 37.8 % (37.0-47.0) 10/30/22 13:16 MCV 82.9 fl (81-99) 10/30/22 13:16 MCH 21.1 pg (28.0-34.0) L 10/30/22 13:16 MCHC 25.4 g/dL (30.0-36.0) L 10/30/22 13:16 RDW 17.2 % (12.1-15.1) H 10/30/22 13:16 Plt Count 307 10^3/cmm (130-400) 10/30/22 13:16 MPV 10.1 fL (7.4-10.4) 10/30/22 13:16 Neut % (Auto) 59.4 % 10/30/22 13:16 Lymph % (Auto) 23.3 % 10/30/22 13:16 [place] % (Auto) 13.9 % 10/30/22 13:16 Eos % (Auto) 1.8 % 10/30/22 13:16 Baso % (Auto) 1.1 % 10/30/22 13:16 Neut # (Auto) 5.24 10^3/uL (1.8-7.7) 10/30/22 13:16 Lymph # (Auto) 2.1 10^3/uL (0.8-4.8) 10/30/22 13:16 [place] # (Auto) 1.2 10^3/uL (0.2-0.9) H 10/30/22 13:16 Eos # (Auto) 0.2 10^3/uL (0.0-0.8) 10/30/22 13:16 Baso # (Auto) 0.1 10^3/uL (0.0-0.1) 10/30/22 13:16 Nucleated RBC % (auto) 0.6 % 10/30/22 13:16 Nucleated RBCs # 0.1 /100WBC 10/30/22 13:16 Sodium 134 mmol/L (136-145) L 10/30/22 13:16 Potassium 4.3 mmol/L (3.5-5.1) 10/30/22 13:16 Chloride 92 mmol/L (98-107) L 10/30/22 13:16 Carbon Dioxide 23 mmol/L (22-29) 10/30/22 13:16 Anion Gap 23.3 (5-19) H 10/30/22 13:16 BUN 30 mg/dL (8-23) H 10/30/22 13:16 Creatinine 1.3 mg/dL (0.5-0.9) H 10/30/22 13:16 GFR Calculation Not Reportable 10/30/22 13:16 Glucose 127 mg/dL (65-115) H 10/30/22 13:16 Calculated Osmolality 286 mOsm/kg (285-295) 10/30/22 13:16 Lactic Acid 3.4 mmol/L (0.5-2.2) H 10/30/22 15:14 Calcium 9.1 mg/dL (8.5-10.5) 10/30/22 13:16 Troponin T Baseline 65 ng/L (0-10) H 10/30/22 13:16 Troponin T 120 Minute 48.50 ng/L (0-10) H 10/30/22 15:14 Delta Troponin T -16.50 ABS# (0-10) L 10/30/22 15:14 NT-Pro-B Natriuret Pep 3905 pg/mL (0-125) H 10/30/22 13:16 Nasal Influ A H1 2009 PCR Not detected (NOT DETECT) 10/30/22 14:35 Adenovirus (PCR) Not detected (NOT DETECT) 10/30/22 14:35 C. pneumoniae DNA (PCR) Not detected (NOT DETECT) 10/30/22 14:35 Coronavirus 229E (PCR) Not detected (NOT DETECT) 10/30/22 14:35 Human Metapneumovir PCR Not detected (NOT DETECT) 10/30/22 14:35 Influenza A (H1) PCR Not detected (NOT DETECT) 10/30/22 14:35 Influenza A (H3) PCR Not detected (NOT DETECT) 10/30/22 14:35 Influenza Type A (PCR) Not detected (NOT DETECT) 10/30/22 14:35 Influenza Type B (PCR) Not detected (NOT DETECT) 10/30/22 14:35 M. pneumoniae (PCR) Not detected (NOT DETECT) 10/30/22 14:35 Parainfluenza 1 (PCR) Not detected (NOT DETECT) 10/30/22 14:35 Parainfluenza 2 (PCR) Not detected (NOT DETECT) 10/30/22 14:35 Parainfluenza 3 (PCR) Not detected (NOT DETECT) 10/30/22 14:35 Parainfluenza 4 (PCR) Not detected (NOT DETECT) 10/30/22 14:35 RSV Type A (PCR) Not detected (NOT DETECT) 10/30/22 14:35 RSV Type B (PCR) Not detected (NOT DETECT) 10/30/22 14:35 Entero/Rhino (PCR) Not detected (NOT DETECT) 10/30/22 14:35 SARS-CoV-2 (PCR) Not detected (NOT DETECT) 10/30/22 14:35 Critical Care Time Critical Care Time: Critical Care Time: Yes Total Critical Care Time: 35 Attestation: Due to a high probability of clinically significant, possibly life threatening deterioration, the patient required my highest level of attention and preparedness to intervene emergently and I personally spent this critical care time directly and personally managing the patient. This critical care time included obtaining a history; examining the patient; pulse oximetry; ordering and review of laboratory and imaging studies; arranging urgent treatment with development of a management plan; evaluation of patient's response to treatment; frequent reassessment; and, discussions with other providers as applicable. It was exclusive of separately billable procedures. Primary system involved is respiratory Discharge Plan Discharge Patient Disposition: Home Clinical Impression: Respiratory distress, Acute exacerbation of chronic obstructive pulmonary disease, Pneumonia Condition: Stable Prescriptions: New albuterol sulfate 90 mcg/actuation HFA aerosol inhaler 2 inh inhalation Q4H PRN (Reason: shortness of breath or wheezing) Qty: 8.5 0RF No Action albuterol sulfate 2.5 mg /3 mL (0.083 %) solution for nebulization 2.5 mg inhalation Q6H PRN (Reason: bronchospasm) Qty: 180 5RF albuterol sulfate [ProAir HFA] 90 mcg/actuation HFA aerosol inhaler 2 puff INHALATION Q6H PRN (Reason: Shortness Of Breath) Qty: 8.5 3RF budesonide 0.5 mg/2 mL suspension for nebulization 0.5 mg inhalation BID Qty: 120 3RF formoterol fumarate [Perforomist] 20 mcg/2 mL solution for nebulization 2 ml inhalation BID Qty: 120 3RF (DME) Home oxygen See Rx Instructions .Route .MEDSUPPLY Qty: 1 0RF Rx Instructions: give machine and supplies. 5 L per NC at rest/ sleep and with activity apixaban 5 mg tablet 5 mg PO Q12H Qty: 60 0RF aspirin 81 mg Tablet,Delayed Release (Dr/Ec) 81 mg PO DAILY Qty: 30 0RF atorvastatin 40 mg Tablet 40 mg PO BEDTIME Qty: 30 0RF potassium chloride 20 mEq tablet extended release 20 meq PO DAILY Qty: 30 0RF hydrocodone-acetaminophen 5-325 mg tablet 1 tab PO Q6H PRN (Reason: pain) Qty: 20 0RF alprazolam 0.25 mg tablet 0.25 mg PO BEDTIME Qty: 20 0RF mirtazapine 30 mg Tablet 30 mg PO BEDTIME morphine concentrate 100 mg/5 mL (20 mg/mL) solution See Rx Instructions .ROUTE .COMPLEX Rx Instructions: 0.5 ml sublingually every 2 hours as needed. Ativan 2 mg/mL Solution See Rx Instructions .ROUTE .COMPLEX PRN (Reason: Anxiety) Rx Instructions: TAKE 0.5 ML SUBLINGUALLY EVERY 2 HOURS NEEDED. prednisone 5 mg tablet 5 mg PO DAILY spironolactone 25 mg tablet 25 mg PO DAILY ondansetron 8 mg Tablet,Disintegrating 8 mg PO Q8H PRN (Reason: Nausea) lorazepam 0.5 mg tablet 0.5 mg PO BID PRN (Reason: Anxiety) Rx Instructions: due to shortness of breath Milk of Magnesia 400 mg/5 mL Suspension See Rx Instructions .ROUTE .COMPLEX PRN (Reason: Constipation) Rx Instructions: 30 ml orally every 72 hours as needed if no BM in 3 days. bisacodyl 10 mg Suppository See Rx Instructions .ROUTE .COMPLEX PRN (Reason: Constipation) Rx Instructions: 10 mg rectally once daily as needed if can't take by mouth if no results from milk of mag furosemide 20 mg Tablet 40 mg PO DAILY sertraline 50 mg Tablet 50 mg PO BEDTIME bisacodyl 5 mg Tablet See Rx Instructions .ROUTE .COMPLEX PRN (Reason: Constipation) Rx Instructions: 10 mg orally once daily as needed, if no results from milk of mag Calmoseptine 0.44-20.6 % Ointment 1 applic TOPICAL DAILY PRN (Reason: Rash) prednisone 20 mg tablet 40 mg PO DAILY Taper: predniSONE 60-10 40 mg Daily for 3 Days and 0 Hour 30 mg Daily for 3 Days and 0 Hour 20 mg Daily for 3 Days and 0 Hour 10 mg Daily for 3 Days and 0 Hour 5 mg Daily for 30 Days and 0 Hour furosemide 20 mg tablet 40 mg PO QAM 30 Days Qty: 30 0RF temazepam 15 mg Capsule 30 mg PO BEDTIME PRN (Reason: Insomnia) pantoprazole 40 mg Tablet,Delayed Release (Dr/Ec) 40 mg PO DAILY docusate sodium 100 mg Capsule 200 mg PO BID PRN (Reason: Constipation) polyethylene glycol 3350 [Miralax] 17 gram/dose Powder 17 g PO DAILY PRN (Reason: Constipation) acetaminophen 500 mg Capsule 1,000 mg PO Q6H PRN (Reason: Pain) escitalopram oxalate [Lexapro] 10 mg Tablet 10 mg PO DAILY metoprolol tartrate 25 mg Tablet 12.5 mg PO BID metoclopramide HCl [Reglan] 5 mg tablet 5 mg PO Q6H PRN (Reason: nausea and vomiting) Qty: 14 0RF Discharge Orders: Discharge ED (Routine); Ordered 10/30/22 Ordered By: Damián Foley Referrals: Norris Lawson, [Primary Care Provider] - Discharge Diet: Usual diet Discharge Activity: Resume usual activity Patient Instructions: COPD (Chronic Obstructive Pulmonary Disease) (ED), Pneumonia (ED) Activity Restrictions/Additional Instructions: Thank you for visiting the emergency department. You were seen about a for respiratory symptoms. We are pleased that you had improvement with ED care. The most likely cause of your symptoms is pneumonia with exacerbation of underlying lung disease. I will prescribe steroids and antibiotics. Please also use your albuterol metered-dose inhaler 2 puffs or 1 treatment via nebulizer every 4 hours for 24 hours followed by 2 puffs or 1 treatment via nebulizer every 6 hours for 24 hours followed by 2 puffs or 1 treatment via nebulizer every 8 hours for 24 hours and then return to the normal schedule. Please have her reevaluation by a primary care provider in the next 1 to 2 days. Please continue your other medications. Return for anything that you are concerned about and feel needs emergency department evaluation. Coding Level of Care Code ED Software Applications Specialist for Nan Chaudhary
--- NOTE | 2022-10-30 13:35 | XRR_ITS ---
PROCEDURE INFORMATION: Exam: XR Chest Exam date and time: 10/30/2022 1:45 PM Age: 72 years old Clinical indication: Shortness of breath; Additional info: SOB.No history of trauma or recent surgery is provided. TECHNIQUE: Imaging protocol: Radiologic exam of the chest. 1image(s) are provided. Views: 1 view. COMPARISON: 1. CR (CHEST, ) 10/18/2022 6:[address] angio chest PE protcl [id number] 07/21/2022 3:55 PM FINDINGS: Lungs: There is bandlike subsegmental atelectasis versus post inflammatory scarring demonstrated. There is some slightly increased opacification of the right lung base with otherwise improved aeration of the left lung base. There is some mild chronic air trapping appearance overall. Pleural spaces: There is skin fold, fissure averaging demonstrated. There is some costophrenic angle blunting right more so than left. No pneumothorax is appreciated. Heart/Mediastinum: The cardiomediastinal silhouette is upper normal in size.This can be seen with central averaging as well as jaycob enlargement.No cardiac decompensation is appreciated. Diaphragm: There is slight asymmetric right hemidiaphragm elevation. Bones/joints: Osseous alignment is maintained.No interval displaced fracture or dislocation is appreciated.There is slightly decreased bone mineralization overall. Soft tissues: No radiopaque foreign body or subcutaneous emphysema is appreciated. Other findings: No other significant interval changes are appreciated. XR/XR chest 1V portable [id number] IMPRESSION: There are mixed findings as there is improved left basal aeration with some increased density suggestive of slightly increased inflammation of the right lung base.
--- NOTE | 2022-10-30 13:45 | ECG_ITS ---
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 Measurements Intervals [place] Rate: 71 P: 51 WV: 168 QRS: 105 QRSD: 94 T: 82 QT: 406 QTc: 443 Interpretive Statements SINUS RHYTHM RIGHT AXIS DEVIATION [QRS AXIS > 100] LOW QRS VOLTAGE IN PRECORDIAL LEADS [QRS DEFLECTION < 1.0 mV IN CHEST LEADS] NONSPECIFIC T-WAVE ABNORMALITY Compared to ECG 07/21/2022 06:25:51 Right-axis deviation now present Low QRS voltage now present T-wave abnormality now present Electronically Signed On 11-01-2022 8:34:06 CDT by Octaviano Castro M.D. [id number]
[2022-10-30] MEDS: ipratropium-albuterol 3 mL Neb INHALATION (13:55)
[2022-10-30 13:57] LABS: Basophils # 0.1 10^3/uL (0.0-0.1); Basophils % 1.1 %; Eosinophils # 0.2 10^3/uL (0.0-0.8); Eosinophils % 1.8 %; Hematocrit 37.8 % (37.0-47.0); Hemoglobin 9.6 g/dL (11.5-15.3); Lymphocytes # 2.1 10^3/uL (0.8-4.8); Lymphocytes % 23.3 %; Mean Corpuscular HGB Conc 25.4 g/dL (30.0-36.0); Mean Corpuscular Hemoglobin 21.1 pg (28.0-34.0); Mean Corpuscular Volume 82.9 fl (81-99); Mean Platelet Volume 10.1 fL (7.4-10.4); Monocytes # 1.2 10^3/uL (0.2-0.9); Monocytes % 13.9 %; Neutrophils # 5.24 10^3/uL (1.8-7.7); Neutrophils % 59.4 %; Nucleated Red Blood Cells # 0.1 /100WBC; Nucleated Red Blood Cells % 0.6 %; Platelet Count 307 10^3/cmm (130-400); Red Blood Count 4.56 10^6/uL (4.1-5.3); Red Cell Distribution Width 17.2 % (12.1-15.1); White Blood Count 8.8 10^3/uL (4.0-10.0)
[2022-10-30] MEDS: albuterol 2.5 mg/3 mL Neb INHALATION ×4 (13:57→14:28)
[2022-10-30] MEDS: methylPREDNISolone sod succ 125 MG in water for injection-sterile 2 ML 24 MG IVP (14:00)
[2022-10-30 14:26] LABS: Troponin(5th) Baseline 65 ng/L (0-10)
[2022-10-30 14:39] LABS: Anion Gap 23.3 (5-19); Blood Urea Nitrogen 30 mg/dL (8-23); Calcium 9.1 mg/dL (8.5-10.5); Carbon Dioxide 23 mmol/L (22-29); Chloride 92 mmol/L (98-107); Glucose 127 mg/dL (65-115); NT Pro B Type Natriuretic Pept 3905 pg/mL (0-125); Osmolality Calculated 286 mOsm/kg (285-295); Potassium 4.3 mmol/L (3.5-5.1); Sodium 134 mmol/L (136-145)
[2022-10-30] MEDS: levofloxacin-dextrose 5 % 750 MG/150 ML PREMIX 100 MG IV (14:55)
[2022-10-30] MEDS: sodium chloride 0.9% 500 ML 999 ML IV (14:56)
--- NOTE | 2022-10-30 15:40 | ECG_ITS ---
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 Measurements Intervals [place] Rate: 81 P: 80 MD: 162 QRS: 111 QRSD: 84 T: 218 QT: 362 QTc: 422 Interpretive Statements SINUS RHYTHM WITH MARKED SINUS ARRHYTHMIA POSSIBLE RIGHT VENTRICULAR HYPERTROPHY [SOME/ALL OF: PROMINENT R IN V1, LATE TRANSITION, RAD, BRENDA, SSS] NONSPECIFIC ST & T-WAVE ABNORMALITY Compared to ECG 10/30/2022 13:45:41 Right-axis deviation no longer present T-wave abnormality still present Electronically Signed On 11-01-2022 8:37:40 CDT by Octaviano Castro M.D. [id number]
[2022-10-30 15:46] LABS: Lactic Sepsis W/Reflex 3.4 mmol/L (0.5-2.2)
[2022-10-30 16:23] LABS: Adenovirus Not Detected (NOT DETECT); Chlamydia Pneumoniae Not Detected (NOT DETECT); Coronavirus 229E,HKU1,NL63,OC4 Not Detected (NOT DETECT); Human Metapneumovirus Not Detected (NOT DETECT); Human Rhinovirus/Enterovirus Not Detected (NOT DETECT); Influenza A Not Detected (NOT DETECT); Influenza A H1 Not Detected (NOT DETECT); Influenza A H1-2009 Not Detected (NOT DETECT); Influenza A H3 Not Detected (NOT DETECT); Influenza B Not Detected (NOT DETECT); Mycoplasma Pneumoniae Not Detected (NOT DETECT); Parainfluenza Virus Type 1 Not Detected (NOT DETECT); Parainfluenza Virus Type 2 Not Detected (NOT DETECT); Parainfluenza Virus Type 3 Not Detected (NOT DETECT); Parainfluenza Virus Type 4 Not Detected (NOT DETECT); Respiratory Syncytial Virus A Not Detected (NOT DETECT); Respiratory Syncytial Virus B Not Detected (NOT DETECT); SARS-COV-2 Not Detected (NOT DETECT)
--- NOTE | 2022-10-30 16:24 | PC.NURSE ---
attempted report to [facility] twice with no answer.
[2022-10-30 16:39] LABS: Reflex Lactate Order REFLEX LACTIC ORDERD
--- NOTE | 2022-10-30 16:48 | PC.NURSE ---
report called to [facility] [id number]
== END 2022-10-30 16:50 | disposition home or self-care (01) ==
PROVIDERS: Emergency Provider Emergency Medicine; PCP Internal Medicine
DX: R06.03 Acute respiratory distress (principal); J44.1 Chronic obstructive pulmonary disease with (acute) exacerbation; J18.9 Pneumonia, unspecified organism; F17.210 Nicotine dependence, cigarettes, uncomplicated
CPT/HCPCS: 36415; 71045; 80048; 83605; 83880; 84484; 85025; 87040; 87486; 87581; 87633; 93005; 94640; 94660; 96361; 96365; 96375; 99285; J1956; J2930; J3475; J7040; J7613